=== PATIENT | female | born 1970 | race American Indian/Alaskan Native ===

== ENCOUNTER 2017-03-03 11:53 | Inpatient (IN) | payer MEDICAID ==
[2017-03-03 15:04] LABS: Urine Drugs of Abuse Note Disclamer
[2017-03-03] MEDS ORDERED: HALDOL IM ONE (15:04)
[2017-03-03] MEDS ORDERED: ROCEPHIN/NS 1 GM/50 ML 1 GM/50 ML BAG IV ONE (15:15)
[2017-03-03 15:17] LABS: Bacteria,Urine 1+ /HPF (Negative); Bilirubin,Urine NEG (Negative); Blood,Urine MOD (Negative); Ketones,Urine TR mg/dL (Negative); Leukocyte Esterase,Urine NEG (Negative); Nitrite,Urine POS (Negative)
[2017-03-03 15:23] LABS: Protein,Urine >500 mg/dL (Negative)
[2017-03-03 15:56] LABS: Basophils % (Auto) 0.3 % (0.0-1.8); Eosinophils % (Auto) 0.7 % (0.0-4.3); Hematocrit 33.2 % (30.3-42.9); Hemoglobin 10.3 gm/dl (10.1-14.3); Mean Corpuscular HGB Conc 31 % (30-34); Mean Corpuscular Hemoglobin 26 pg (28-32); Mean Corpuscular Volume 84 fl (79-97); Platelet Count 251 K/mm3 (140-440); Red Blood Count 3.96 M/mm3 (3.65-5.03); Red Cell Distribution Width 13.4 % (13.2-15.2)
--- NOTE | 2017-03-03 16:04 | Emergency Department Report ---
ED Altered Mental Status HPI - General Chief Complaint: Altered Mental Status Stated Complaint: ALT LOC Time Seen by Provider: 03/03/17 14:21 Source: family, EMS Mode of arrival: Stretcher Limitations: Altered Mental Status - History of Present Illness MD Complaint: altered mental status, confusion -: Gradual, days(s) (1) Severity: mild Consistency of Symptoms: getting worse Associated Symptoms: shortness of breath, other (currently on antibiotics cipro for UTI). denies: chest pain, cough, diaphoresis, fever/chills, headaches, loss of appetite, malaise, rash, seizure, syncope, weakness, difficulty walking , diarrhea, incontinence - Related Data Home Medications Medication Instructions Recorded Confirmed Last Taken Amlodipine Besylate [Amlodipine 10 mg PO DAILY 08/27/15 08/27/15 08/27/15 Besylate] AtorvaSTATin [Lipitor] 40 mg PO DAILY 08/27/15 08/27/15 08/27/15 Gabapentin [Gabapentin] 300 mg PO TID 08/27/15 08/27/15 08/27/15 HYDROcodone/ACETAMINOPHEN [[place] 1 tab PO TID PRN 08/27/15 08/27/15 08/27/15 7.5-325 mg TAB] Insulin Glulisine [Apidra] 20 units SC DAILY 08/27/15 08/27/15 08/27/15 07:00 Lisinopril [Lisinopril] 40 mg PO DAILY 08/27/15 08/27/15 08/27/15 Allergies Allergy/AdvReac Type Severity Reaction Status Date / Time ibuprofen AdvReac Rash Verified 08/27/15 08:38 ED Review of Systems ROS: Stated complaint: ALT LOC Other details as noted in HPI Other: GENERAL: No weight change, fatigue, weakness, fever, chills, or night sweats SKIN: No changes in skin or hair, no itching, no rashes, no jaundice HEAD: No trauma, headache, or visual changes EYES: No blurriness, tearing, itching, acute visual loss, conjunctival discoloration, or scleral icterus EARS: No hearing loss, tinnitus, vertigo, or earache NOSE: No rhinorrhea, stuffiness, sneezing, itching, or epistaxis MOUTH: No bleeding gums, hoarseness, sore throat, or swelling CARDIAC: No new murmur, chest pain, palpitations, dyspnea on exertion, orthopnea , PND, or edema RESPIRATORY: shortness of breath. No wheeze, cough, sputum production, hemoptysis, pneumonia, asthma, bronchitis, or emphysema GI: No change in appetite, nausea, vomiting, dysphagia, change in bowel frequency, diarrhea, constipation, bleeding, hematemesis, melena, hematochezia, or abdominal pain URINARY: No frequency, urgency, polyuria, dysuria, hematuria, or incontinence MUSCULOSKELETAL: No muscle weakness, joint stiffness, decrease in range of motion, redness, swelling NEUROLOGIC: Altered mental status worsening. 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) Hx Diabetes: Yes Hx GERD: Yes Hx HIV: No - Surgical History Past Surgical History?: Yes Hx Cholecystectomy: Yes - Social History Smoking Status: Current Some Day Smoker - Medications Home Medications: Home Medications Medication Instructions Recorded Confirmed Last Taken Type Amlodipine Besylate [Amlodipine 10 mg PO DAILY 08/27/15 08/27/15 08/27/15 History Besylate] AtorvaSTATin [Lipitor] 40 mg PO DAILY 08/27/15 08/27/15 08/27/15 History Gabapentin [Gabapentin] 300 mg PO TID 08/27/15 08/27/15 08/27/15 History HYDROcodone/ACETAMINOPHEN [[place] 1 tab PO TID PRN 08/27/15 08/27/15 08/27/15 History 7.5-325 mg TAB] Insulin Glulisine [Apidra] 20 units SC DAILY 08/27/15 08/27/15 08/27/15 07:00 History Lisinopril [Lisinopril] 40 mg PO DAILY 08/27/15 08/27/15 08/27/15 History ED Physical Exam - General Limitations: Altered Mental Status - Other Other exam information: GENERAL: Patient in no acute distress HEAD: Normocephalic, atraumatic EYES: PERRLA, EOM intact, no scleral icterus, visual mckeon and acuity wnl NOSE: No tenderness, discharge, sinus tenderness MOUTH: No erythema, bleeding, exudate HEART: tachycardia, no murmur, S1-S2 are auscultated, pulses are symmetric LUNGS: bilateral breath sounds. No wheezing, rales, rhonchi ABDOMEN: Normal bowel sounds, no tenderness, no rebound, no guarding, no masses , no CVA tenderness MUSCULOSKELETAL: Normal joint range of motion, no redness, no swelling, no tenderness NEUROLOGIC: Altered mental status, Patient mute, non-communicative, Alert, , Cranial nerves intact, normal sensation, normal strength SKIN: Skin is warm and dry, no wounds, no rashes ED Course Vital Signs 03/03/17 03/03/17 12:11 13:48 Temperature 97.9 F Pulse Rate 90 77 Respiratory 18 22 Rate Blood Pressure 170/90 171/93 [Right] O2 Sat by Pulse 99 97 Oximetry - Lab Data Result diagrams: 03/03/17 15:45 Lab Results 03/03/17 03/03/17 03/03/17 Range/Units 14:50 15:01 15:45 WBC 14.0 H (4.5-11.0) K/mm3 RBC 3.96 (3.65-5.03) M/mm3 Hgb 10.3 (10.1-14.3) gm/dl Hct 33.2 (30.3-42.9) % MCV 84 (79-97) fl MCH 26 L (28-32) pg MCHC 31 (30-34) % RDW 13.4 (13.2-15.2) % Plt Count 251 (140-440) K/mm3 Lymph % (Auto) 20.5 (13.4-35.0) % [place] % (Auto) 5.8 (0.0-7.3) % Eos % (Auto) 0.7 (0.0-4.3) % Baso % (Auto) 0.3 (0.0-1.8) % Lymph # 2.9 (1.2-5.4) K/mm3 [place] # 0.8 (0.0-0.8) K/mm3 Eos # 0.1 (0.0-0.4) K/mm3 Baso # 0.0 (0.0-0.1) K/mm3 Seg Neutrophils % 72.7 H (40.0-70.0) % Seg Neutrophils # 10.2 H (1.8-7.7) K/mm3 Urine Color [place] (Yellow) Urine Turbidity Clear (Clear) Urine pH 6.0 (5.0-7.0) Ur Specific [place] 1.015 (1.003-1.030) Urine Protein >500 (Negative) mg/dL Urine Glucose (UA) 50 (Negative) mg/dL Urine Ketones Tr (Negative) mg/dL Urine Blood Mod (Negative) Urine Nitrite Pos (Negative) Urine Bilirubin Neg (Negative) Urine Urobilinogen 2.0 (<2.0) mg/dL Ur Leukocyte Esterase Neg (Negative) Urine WBC (Auto) 1.0 (0.0-6.0) /HPF Urine RBC (Auto) 1.0 (0.0-6.0) /HPF U Epithel Cells (Auto) < 1.0 (0-13.0) /HPF Urine Bacteria (Auto) 1+ (Negative) /HPF Urine HCG, Qual Negative (Negative) Urine Opiates Screen Presumptive negative Urine Methadone Screen Presumptive negative Ur Barbiturates Screen Presumptive negative Ur Phencyclidine Scrn Presumptive negative Ur Amphetamines Screen Presumptive negative U Benzodiazepines Scrn Presumptive negative Urine Cocaine Screen Presumptive negative U Marijuana (THC) Screen Presumptive negative Drugs of Abuse Note Disclamer Critical care attestation.: If time is entered above; I have spent that time in minutes in the direct care of this critically ill patient, excluding procedure time. ED Disposition Condition: Stable Referrals: PRIMARY CARE, [Primary Care Provider] - 3-5 Days
[2017-03-03 16:45] LABS: Albumin 4.2 g/dL (3.9-5); Chloride 105.5 mmol/L (98-107); Potassium 4.6 mmol/L (3.6-5.0)
--- NOTE | 2017-03-03 16:48 | XRay Report ---
PORTABLE CHEST INDICATION: Hypertension. COMPARISON: 11/25/2010 FINDINGS: Portable, frontal chest radiograph demonstrates normal cardiomediastinal silhouette. Minimal left lower lung atelectasis and slightly elevated left hemidiaphragm. No pleural effusions or CHF. Patient's face/chin partly obscures the right lung apex. Probable cholecystectomy clips. Intact bones. CONCLUSION: Slight left lower lung atelectasis, as described. Thank you for the opportunity to participate in this patient's care.
--- NOTE | 2017-03-03 16:57 | Cat Scan Report ---
CT HEAD WITHOUT CONTRAST INDICATION: Altered mental status. COMPARISON: 01/01/2010. FINDINGS: Noncontrast head CT demonstrates symmetric ventricles and sulci, though prominent for the patient's age and larger since the prior exam. Mild periventricular hypodensities and few small lacunar infarcts as approximately 7 mm in the left basal ganglia as also right periventricular are new since. Exam in part limited due to patient's head tilt/position, though without definite acute infarct, hemorrhage, mass effect or midline shift. No abnormal extra axial fluid collections. Normal posterior fossa with preserved basilar cisterns. Approximately 7 mm lacunar infarct in the alfred on the right, axial image 14 as well. Clear imaged paranasal sinuses and mastoid air cells. Atherosclerotic ICA calcifications. Normal calvarium and scalp. Numerous radiopaque dental fillings. CONCLUSION: 1. Increased global atrophy since December 2009 and somewhat pronounced for the patient's age. Numerous lacunar infarcts have also developed in the interval, as described above. 2. Few other incidental findings, as above. Thank you for the opportunity to participate in this patient's care.
[2017-03-03 17:26] LABS: Albumin/Globulin Ratio 1.4 %; BUN/Creatinine Ratio 7.83; Bilirubin,Total 0.3 mg/dL (0.1-1.2); Calcium 9.3 mg/dL (8.4-10.2); Total Protein 7.2 g/dL (6.3-8.2)
[2017-03-03] MEDS ORDERED: NACL 0.45% 1,000 ML IV SCH (18:00)
[2017-03-03] MEDS ORDERED: PROVENTIL IH PRN (19:36)
[2017-03-03] MEDS ORDERED: NACL 0.9% 1000 ML IV ONE (19:36)
[2017-03-03] MEDS ORDERED: MILK OF MAGNESIA PO PRN ×2 (19:36→19:43)
[2017-03-03] MEDS ORDERED: VANCOMYCIN VIAL IV ONE (19:36)
[2017-03-03] MEDS ORDERED: SODIUM CHLORIDE FLUSH SYRINGE 10 ML IV PRN ×2 (19:36→19:43)
[2017-03-03] MEDS ORDERED: REGLAN PO PRN (19:43)
[2017-03-03] MEDS ORDERED: TYLENOL PO PRN (19:43)
[2017-03-03] MEDS ORDERED: PHENERGAN PR PRN (19:43)
[2017-03-03] MEDS ORDERED: ZOFRAN IV PRN (19:43)
[2017-03-03] MEDS ORDERED: DULCOLAX PR PRN (19:43)
--- NOTE | 2017-03-03 19:46 | History and Physical Report ---
History of Present Illness Chief complaint: confusion History of present illness: 46 YO Female with HTN, CVA complicated by dysarthria, DM, GERD, Nicotine Dependence presents to ED for evaluation. Pt unable to provide history. Pt history taken from ED staff and medical record. Pt family members not available for questioning. per ED staff, Patient has become progressively more confused over the past week with worsening symptoms over the past 1 day. Pt was seen and evaluated at an outside hospital and given antibiotics and released back to home. No reports of fever, chills, CP, palpitations, NVD, syncope, trauma, recent ill contacts. Pt seen and evaluated in ED. Pt is confused and lethargic but is able to protect her airway. Past History Past Medical History: diabetes, GERD, hypertension, stroke, other Past Surgical History: No surgical history, Other (reviewed) Social history: single, lives with family, smoking Family history: diabetes, hypertension Medications and Allergies Allergies Allergy/AdvReac Type Severity Reaction Status Date / Time ibuprofen AdvReac Rash Verified 08/27/15 08:38 Home Medications Medication Instructions Recorded Confirmed Last Taken Type Amlodipine Besylate [Amlodipine 10 mg PO DAILY 08/27/15 08/27/15 08/27/15 History Besylate] AtorvaSTATin [Lipitor] 40 mg PO DAILY 08/27/15 08/27/15 08/27/15 History Gabapentin [Gabapentin] 300 mg PO TID 08/27/15 08/27/15 08/27/15 History HYDROcodone/ACETAMINOPHEN [[place] 1 tab PO TID PRN 08/27/15 08/27/15 08/27/15 History 7.5-325 mg TAB] Insulin Glulisine [Apidra] 20 units SC DAILY 08/27/15 08/27/15 08/27/15 07:00 History Lisinopril [Lisinopril] 40 mg PO DAILY 08/27/15 08/27/15 08/27/15 History Active Meds: Active Medications Acetaminophen (Tylenol) 650 mg PO Q4H PRN PRN Reason: Pain MILD(1-3)/Fever >100.5/LEE Acetaminophen (Tylenol) 650 mg PO Q4H PRN PRN Reason: Pain, Mild (1-3) Albuterol (Proventil) 2.5 mg IH Q4HRT PRN PRN Reason: Shortness Of Breath Bisacodyl (Dulcolax) 10 mg UT QDAY PRN PRN Reason: Constipation unrelieved by MOM Bisacodyl (Dulcolax) 10 mg UT QDAY PRN PRN Reason: Constipation Sodium Chloride (Nacl 0.45%) 1,000 mls @ 1,000 mls/hr IV DIRECT LORENE Piperacillin Sod/Tazobactam Sod (Zosyn/Ns 4.5gm/100ml) 4.5 gm in 100 mls @ 200 mls/hr IV Q8HR LORENE PRN Reason: Protocol Lorazepam (Ativan) 1 mg IV Q4H PRN PRN Reason: Anxiety Magnesium Hydroxide (Milk Of Magnesia) 30 ml PO Q4H PRN PRN Reason: Constipation Magnesium Hydroxide (Milk Of Magnesia) 30 ml PO Q4H PRN PRN Reason: Constipation Metoclopramide HCl (Reglan) 10 mg PO Q6H PRN PRN Reason: Nausea And Vomiting Ondansetron HCl (Zofran) 4 mg IV Q8H PRN PRN Reason: N/V unrelieved by Reglan Ondansetron HCl (Zofran) 4 mg IV Q8H PRN PRN Reason: N/V unrelieved by Reglan Promethazine HCl (Phenergan) 25 mg UT Q6H PRN PRN Reason: Nausea And Vomiting Simvastatin (Zocor) 20 mg PO QHS LORENE Sodium Chloride (Nacl 0.9% 1000 Ml) 2,180 ml 30 ml/kg (2180 ml) IV ONCE ONE Stop: 03/03/17 19:37 Sodium Chloride (Sodium Chloride Flush Syringe 10 Ml) 10 ml IV PRN PRN PRN Reason: LINE FLUSH Sodium Chloride (Sodium Chloride Flush Syringe 10 Ml) 10 ml INJ PRN PRN PRN Reason: LINE FLUSH Vancomycin HCl (Vancomycin Pharmacy To Dose) 1 each IV PKCONSULT LORENE PRN Reason: Protocol Vancomycin HCl (Vancomycin Vial) 1,500 mg 20 mg/kg (1500 mg) IV ONCE ONE PRN Reason: Protocol Stop: 03/03/17 19:37 Review of Systems ROS unobtainable: due to mental status Exam - Constitutional Vitals: Temp Pulse Resp BP Pulse Ox 99.4 F 122 H 20 168/106 99 03/03/17 16:45 03/03/17 17:23 03/03/17 17:23 03/03/17 19:05 03/03/17 17:23 General appearance: Present: mild distress, disheveled - EENT Eyes: Present: PERRL ENT: hearing intact, clear oral mucosa - Neck Neck: Present: supple, normal ROM - Respiratory Respiratory effort: normal Respiratory: bilateral: CTA - Cardiovascular Heart Sounds: Present: S1 & S2. Absent: rub, click - Extremities Extremities: pulses symmetrical, No edema Peripheral Pulses: within normal limits - Abdominal General gastrointestinal: Present: soft, non-tender, non-distended, normal bowel sounds Female genitourinary: Present: normal - Integumentary Integumentary: Present: clear, dry, clammy, decreased turgor - Musculoskeletal Musculoskeletal: right sided weakness, generalized weakness - Psychiatric Psychiatric: no appropriate mood/affect, no intact judgment & insight, no memory intact - Neurologic Neurologic: moves all extremities, no gait normal Results - Labs CBC & Chem 7: 03/04/17 05:43 03/04/17 05:43 Labs: Abnormal lab results 03/03/17 03/03/17 03/03/17 Range/Units 15:00 15:45 15:45 WBC 14.0 H (4.5-11.0) K/mm3 MCH 26 L (28-32) pg Seg Neutrophils % 72.7 H (40.0-70.0) % Seg Neutrophils # 10.2 H (1.8-7.7) K/mm3 Carbon Dioxide 18 L (22-30) mmol/L BUN 29 H (7-17) mg/dL Creatinine 3.7 H (0.7-1.2) mg/dL Lactic Acid 0.50 L (0.7-2.0) mmol/L Troponin T (0.00-0.029) ng/mL Salicylates (2.8-20.0) mg/dL 03/03/17 03/03/17 Range/Units 15:45 16:15 WBC (4.5-11.0) K/mm3 MCH (28-32) pg Seg Neutrophils % (40.0-70.0) % Seg Neutrophils # (1.8-7.7) K/mm3 Carbon Dioxide (22-30) mmol/L BUN (7-17) mg/dL Creatinine (0.7-1.2) mg/dL Lactic Acid (0.7-2.0) mmol/L Troponin T 0.050 H (0.00-0.029) ng/mL Salicylates < 0.3 L (2.8-20.0) mg/dL Assessment and Plan - Patient Problems (1) Sepsis Current Visit: Yes Status: Acute Qualifiers: Sepsis type: S Plan to address problem: IV abx, ivf, serial lactic acid, monitor uop q shift, blood cultures (2) Encephalopathy Current Visit: Yes Status: Acute Plan to address problem: toxic encephalopathy: treat sepsis, CT head, neuro checks, rapid hiv (3) ARF (acute renal failure) Current Visit: Yes Status: Acute Qualifiers: Acute renal failure type: A Plan to address problem: IVF resuscitation therapy, supportive care, monitor uop q shift (4) Accelerated hypertension Current Visit: Yes Status: Acute Plan to address problem: monitor bp q shif, resume home medication (5) CVA (cerebral vascular accident) Current Visit: Yes Status: Suspected Qualifiers: CVA mechanism: C Precerebral and cerebral artery: P Laterality of affected vessel: L Plan to address problem: stroke protocol: CT head, mri, mra brain, carotid doppler, echo, supportive care , neuro checks (6) DVT prophylaxis Current Visit: Yes Status: Acute
[2017-03-03 19:58] LABS: Basophils % (Auto) 0.3 % (0.0-1.8); Eosinophils % (Auto) 0.7 % (0.0-4.3); Hemoglobin 9.5 gm/dl (10.1-14.3); Mean Corpuscular HGB Conc 28 % (30-34); Mean Corpuscular Hemoglobin 26 pg (28-32); Mean Corpuscular Volume 94 fl (79-97); Platelet Count 213 K/mm3 (140-440); Red Blood Count 3.62 M/mm3 (3.65-5.03); Red Cell Distribution Width 14.7 % (13.2-15.2); White Blood Count 11.9 K/mm3 (4.5-11.0)
[2017-03-03] MEDS ORDERED: VANCOMYCIN PHARMACY TO DOSE IV SCH (20:00)
[2017-03-03] MEDS ORDERED: VANCOMYCIN 1,500 MG in NACL 0.9% 500 ML 500 ML IV ONE (20:00)
[2017-03-03 20:16] LABS: BUN/Creatinine Ratio 8.57; Calcium 8.6 mg/dL (8.4-10.2); Chloride 104.1 mmol/L (98-107)
[2017-03-03 20:26] LABS: Potassium 5.6 mmol/L (3.6-5.0)
[2017-03-03 20:48] LABS: HIV-1 Antigen p24 Non React (Non React); HIVR-1/2 Ab Non React (Non React)
[2017-03-03] MEDS ORDERED: NACL 0.9% 1000 ML 1,000 ML ONE (21:13)
[2017-03-03] MEDS: ZOFRAN IV PRN (21:42)
[2017-03-03] MEDS: ATIVAN IV PRN (21:42)
[2017-03-03] MEDS ORDERED: ZOFRAN ONE (21:46)
[2017-03-03] MEDS ORDERED: ATIVAN ONE (21:46)
[2017-03-03] MEDS ORDERED: ZOSYN/NS 4.5GM/100ML 4.5 GM/100 ML VIAL IV SCH (22:00)
[2017-03-03] MEDS: ZOSYN/NS 2.25 GM/50ML 2.25 GM/50 ML BAG IV SCH (22:43)
[2017-03-03] MEDS: ZOCOR PO SCH (22:43)
[2017-03-04 00:02] LABS: ISTAT Base Excess -5; ISTAT HCO3 20.3; ISTAT PCO2 37.3 (35-45); ISTAT PH 7.345 (7.35-7.45); ISTAT PO2 72 (80-105)
[2017-03-04 00:03] LABS: ISTAT DEVICE 0; ISTAT SO2 93; ISTAT TCO2 21
[2017-03-04] MEDS: ZOSYN/NS 2.25 GM/50ML 2.25 GM/50 ML BAG IV SCH ×4 (06:34→21:51)
[2017-03-04 06:43] LABS: Basophils % (Auto) 0.9 % (0.0-1.8); Eosinophils % (Auto) 1.3 % (0.0-4.3); Hematocrit 30.3 % (30.3-42.9); Hemoglobin 9.8 gm/dl (10.1-14.3); Mean Corpuscular HGB Conc 32 % (30-34); Mean Corpuscular Hemoglobin 27 pg (28-32); Mean Corpuscular Volume 85 fl (79-97); Platelet Count 202 K/mm3 (140-440); Red Blood Count 3.59 M/mm3 (3.65-5.03); Red Cell Distribution Width 13.6 % (13.2-15.2); White Blood Count 12.9 K/mm3 (4.5-11.0)
[2017-03-04 07:17] LABS: Albumin 3.3 g/dL (3.9-5); Albumin/Globulin Ratio 0.9 %; BUN/Creatinine Ratio 9.09; Bilirubin,Total 0.5 mg/dL (0.1-1.2); Calcium 8.8 mg/dL (8.4-10.2); Chloride 105.2 mmol/L (98-107); Total Protein 6.8 g/dL (6.3-8.2)
[2017-03-04] MEDS ORDERED: DULCOLAX PR PRN (10:00)
--- NOTE | 2017-03-04 10:00 | Admit Criteria Form ---
Admission Criteria Documentation: SEPSIS and OTHER FEBRILE ILLNESS, W/O FOCAL INFECTION Clinical Indications for Admission to Inpatient Care ( Place 'X' for any and all applicable criteria): Admission to inpatient status for two midnights or more is indicated for ANY ONE of the following (1)(2)(3): [ ] I. Bacteremia [ ]II. Suspected or identified specific infection requiring hospitalization (eg, meningitis, endocarditis) [ ]III. Hemodynamic instability [ ]IV. Temperature > 104.9 0F (40.5 0C) (oral) [ ]V. Core (rectal) temperature < 95 0F (35 0C) (eg, thought to be due to infection) [X ]. Altered mental status that is severe or persistent [ ]VII. Failure or unavailability of outpatient antimicrobial treatment [ ]VIII. Hypoxemia [ ]IX. Seizures [ ]X. New coagulopathy (eg, reduced platelet count consistent with disseminated intravascular coagulation) [ ]XI. Inpatient admission required [B] rather than observation care because of 1 or more of the following 1) Tachypnea not responsive to outpatient or observation treatment 2) Metabolic disorder (eg, hypoglycemia, hyperglycemia, metabolic acidosis ) that persists despite outpatient and observation care treatment 3) Evidence of end-organ dysfunction (eg, rising creatinine, myocardial ischemia, rising liver function tests) that is severe or persists despite observation care treatment 4) Temperature > 103.1 0F (39.5 0C) (oral) that is not responsive to observation care treatment 5) Dehydration that is severe or persistent 6) Parenteral antimicrobial regimen that must be implemented on inpatient basis (eg, infusion or monitoring needs beyond capabilities of outpatient parenteral therapy) 7) Strict or protective (eg, laminar flow) isolation 8) Other condition, treatment or monitoring requiring inpatient admission Extended stay beyond goal length of stay may be needed for(1)(3) [ ]a) Persistent Hypotension [ ]b) Positive blood cultures [ ]c) Lack of improvement on antimicrobial treatment (eg, continued fever) [ ]d) Active comorbid illness (eg, heart failure, renal failure) [ ]e) High-risk febrile neutropenia [ ]f) Insufficient oral intake [ ]g) insufficient oral intake The original [employer] content created by [employer] has been revised. The portions of the content which have been revised are identified through the use of italic text or in bold, and [employer] has neither reviewed nor approved the modified material. All other unmodified content is copyright [facility], [place]. Please see references footnoted in the original [facility] edition 2017 Admission Criteria Met: Yes
[2017-03-04] MEDS ORDERED: NACL 0.9% 250ML 250 ML ONE (10:56)
--- NOTE | 2017-03-04 11:21 | Progress Note ---
Assessment and Plan Assessment and plan: 46 YO Female with HTN, CVA complicated by dysarthria, DM, GERD, Nicotine Dependence with progressive confusion, over 1 week. Pt was seen and evaluated at an outside hospital and given antibiotics and released back to home. Continue sepsis workup * UA negative, blood cultures negative, chest x-ray shows left lung atelectasis. We'll repeat chest x-ray today * on empiric abx Metabolic Encephalopathy * Etiology unclear at this time, CT head does show global atrophy, but no acute findings, obtain HIV screening, neurology consult * Continue stroke workup as outlined below, check Ammonia level CVA (cerebral vascular accident)? * CT head, mri, mra brain, carotid doppler, echo, supportive care, neuro checks ARF (acute renal failure) * IVF resuscitation therapy, hold TEODORO inhibitor * Renal US and nephrology consult Hyperkalemia * resolved, continue to hold TEODORO Hypertensive urgency * Optimize blood pressure medications Moderate Malnutrition * nutrition consult DVT prophylaxis * lovenox History Interval history: Patient remains confused, nonverbal. Hospitalist Physical - Physical exam Narrative exam: General.: Appears well, no distress, nontoxic, unkempt HEENT: Moist mucous membranes, extraocular muscles intact, no lymphadenopathy Neck: supple Cardiac: S1-S2 heard Lungs: clear to auscultation bilaterally Abdomen: soft , nontender, nondistended, bowel sounds positive Extremities: no edema clubbing or cyanosis Skin: no rash or lesions Neurologic: Confused, nonverbal, not obeying commands, moves extremities. Psych: Limited exam as patient is nonverbal, - Constitutional Vitals: Temp Pulse Resp BP Pulse Ox 99.5 F 115 H 20 174/91 99 03/04/17 09:00 03/04/17 09:00 03/04/17 04:45 03/04/17 09:00 03/04/17 04:45 General appearance: Present: mild distress, disheveled Results - Labs CBC & Chem 7: 03/04/17 05:43 03/04/17 05:43 Labs: Laboratory Last Values WBC 12.9 K/mm3 (4.5-11.0) H 03/04/17 05:43 RBC 3.59 M/mm3 (3.65-5.03) L 03/04/17 05:43 Hgb 9.8 gm/dl (10.1-14.3) L 03/04/17 05:43 Hct 30.3 % (30.3-42.9) 03/04/17 05:43 MCV 85 fl (79-97) 03/04/17 05:43 MCH 27 pg (28-32) L 03/04/17 05:43 MCHC 32 % (30-34) 03/04/17 05:43 RDW 13.6 % (13.2-15.2) 03/04/17 05:43 Plt Count 202 K/mm3 (140-440) 03/04/17 05:43 Lymph % (Auto) 13.4 % (13.4-35.0) 03/04/17 05:43 [place] % (Auto) 4.3 % (0.0-7.3) 03/04/17 05:43 Eos % (Auto) 1.3 % (0.0-4.3) 03/04/17 05:43 Baso % (Auto) 0.9 % (0.0-1.8) 03/04/17 05:43 Lymph # 1.7 K/mm3 (1.2-5.4) 03/04/17 05:43 [place] # 0.6 K/mm3 (0.0-0.8) 03/04/17 05:43 Eos # 0.2 K/mm3 (0.0-0.4) 03/04/17 05:43 Baso # 0.1 K/mm3 (0.0-0.1) 03/04/17 05:43 Seg Neutrophils % 80.1 % (40.0-70.0) H 03/04/17 05:43 Seg Neutrophils # 10.3 K/mm3 (1.8-7.7) H 03/04/17 05:43 D-Dimer 211.87 ng/mlDDU (0-234) 03/03/17 17:43 POC ABG pH 7.345 (7.35-7.45) L 03/04/17 00:00 POC ABG pCO2 37.3 (35-45) 03/04/17 00:00 POC ABG pO2 72 (80-105) L 03/04/17 00:00 POC ABG HCO3 20.3 03/04/17 00:00 POC ABG Total CO2 21 03/04/17 00:00 POC ABG O2 Sat 93 03/04/17 00:00 POC ABG Base Excess -5 03/04/17 00:00 FiO2 21 % 03/04/17 00:00 Sodium 140 mmol/L (137-145) 03/04/17 05:43 Potassium 5.0 mmol/L (3.6-5.0) 03/04/17 05:43 Chloride 105.2 mmol/L (98-107) 03/04/17 05:43 Carbon Dioxide 16 mmol/L (22-30) L 03/04/17 05:43 Anion Gap 24 mmol/L 03/04/17 05:43 BUN 30 mg/dL (7-17) H 03/04/17 05:43 Creatinine 3.3 mg/dL (0.7-1.2) H 03/04/17 05:43 Estimated GFR 18 ml/min 03/04/17 05:43 BUN/Creatinine Ratio 9.09 % 03/04/17 05:43 Glucose 48 mg/dL (65-100) L 03/04/17 05:43 Lactic Acid 0.50 mmol/L (0.7-2.0) L 03/03/17 23:25 Calcium 8.8 mg/dL (8.4-10.2) 03/04/17 05:43 Total Bilirubin 0.50 mg/dL (0.1-1.2) 03/04/17 05:43 AST 32 units/L (5-40) 03/04/17 05:43 ALT 16 units/L (7-56) 03/04/17 05:43 Alkaline Phosphatase 99 units/L (35-129) 03/04/17 05:43 Ammonia 25.0 umol/L (25-60) 03/03/17 15:45 Troponin T 0.038 ng/mL (0.00-0.029) H D 03/03/17 23:25 Total Protein 6.8 g/dL (6.3-8.2) 03/04/17 05:43 Albumin 3.3 g/dL (3.9-5) L 03/04/17 05:43 Albumin/Globulin Ratio 0.9 % 03/04/17 05:43 Triglycerides 121 mg/dL (2-149) 03/03/17 16:15 Cholesterol 166 mg/dL (50-199) 03/03/17 16:15 LDL Cholesterol Direct 90 mg/dL (50-130) 03/03/17 16:15 HDL Cholesterol 52 mg/dL (40-59) 03/03/17 16:15 Cholesterol/HDL Ratio 3.19 % 03/03/17 16:15 Lipase 30 units/L (13-60) 03/03/17 15:45 Urine Color [place] (Yellow) 03/03/17 15:01 Urine Turbidity Clear (Clear) 03/03/17 15:01 Urine pH 6.0 (5.0-7.0) 03/03/17 15:01 Ur Specific [place] 1.015 (1.003-1.030) 03/03/17 15:01 Urine Protein >500 mg/dL (Negative) 03/03/17 15:01 Urine Glucose (UA) 50 mg/dL (Negative) 03/03/17 15:01 Urine Ketones Tr mg/dL (Negative) 03/03/17 15:01 Urine Blood Mod (Negative) 03/03/17 15:01 Urine Nitrite Pos (Negative) 03/03/17 15:01 Urine Bilirubin Neg (Negative) 03/03/17 15:01 Urine Urobilinogen 2.0 mg/dL (<2.0) 03/03/17 15:01 Ur Leukocyte Esterase Neg (Negative) 03/03/17 15:01 Urine WBC (Auto) 1.0 /HPF (0.0-6.0) 03/03/17 15:01 Urine RBC (Auto) 1.0 /HPF (0.0-6.0) 03/03/17 15:01 U Epithel Cells (Auto) < 1.0 /HPF (0-13.0) 03/03/17 15:01 Urine Bacteria (Auto) 1+ /HPF (Negative) 03/03/17 15:01 Urine HCG, Qual Negative (Negative) 03/03/17 15:01 Salicylates < 0.3 mg/dL (2.8-20.0) L 03/03/17 15:45 Urine Opiates Screen Presumptive negative 03/03/17 14:50 Urine Methadone Screen Presumptive negative 03/03/17 14:50 Acetaminophen < 15.0 ug/mL (10.0-30.0) 03/03/17 15:45 Ur Barbiturates Screen Presumptive negative 03/03/17 14:50 Ur Phencyclidine Scrn Presumptive negative 03/03/17 14:50 Ur Amphetamines Screen Presumptive negative 03/03/17 14:50 U Benzodiazepines Scrn Presumptive negative 03/03/17 14:50 Urine Cocaine Screen Presumptive negative 03/03/17 14:50 U Marijuana (THC) Screen Presumptive negative 03/03/17 14:50 Drugs of Abuse Note Disclamer 03/03/17 14:50 Plasma/Serum Alcohol < 0.01 gm% (0-0.07) 03/03/17 15:45 HIV 1&2 Antibody Rapid Non react (Non React) 03/03/17 20:07 HIV P24 Antigen Non react (Non React) 03/03/17 20:07 Blood Type O POSITIVE 03/03/17 20:14 Antibody Screen Negative 03/03/17 20:14 - Imaging and Cardiology CT Scan - head: image reviewed (no acute changes)
--- NOTE | 2017-03-04 13:23 | Consultation ---
History of Present Illness - Reason for Consult Consult date: 03/04/17 mental status changes - History of Present Illness patient has alot of small acunar infarcts on the CT this may exopalin the mental changes spoke with the nurse at bedside ppatient is alert but non verbal with no obseereved seizures at this point Thanks Past History Past Medical History: diabetes, GERD, hypertension, stroke, other Past Surgical History: No surgical history, Other (reviewed) Social history: single, lives with family, smoking Family history: diabetes, hypertension Medications and Allergies Allergies Allergy/AdvReac Type Severity Reaction Status Date / Time ibuprofen AdvReac Rash Verified 08/27/15 08:38 Home Medications Medication Instructions Recorded Confirmed Last Taken Type Amlodipine Besylate [Amlodipine 10 mg PO DAILY 08/27/15 08/27/15 08/27/15 History Besylate] AtorvaSTATin [Lipitor] 40 mg PO DAILY 08/27/15 08/27/15 08/27/15 History Gabapentin [Gabapentin] 300 mg PO TID 08/27/15 08/27/15 08/27/15 History HYDROcodone/ACETAMINOPHEN [[place] 1 tab PO TID PRN 08/27/15 08/27/15 08/27/15 History 7.5-325 mg TAB] Insulin Glulisine [Apidra] 20 units SC DAILY 08/27/15 08/27/15 08/27/15 07:00 History Lisinopril [Lisinopril] 40 mg PO DAILY 08/27/15 08/27/15 08/27/15 History Active Meds: Active Medications Acetaminophen (Tylenol) 650 mg PO Q4H PRN PRN Reason: Pain MILD(1-3)/Fever >100.5/LEE Albuterol (Proventil) 2.5 mg IH Q4HRT PRN PRN Reason: Shortness Of Breath Bisacodyl (Dulcolax) 10 mg [place] QDAY PRN PRN Reason: Constipation unrelieved by MOM Hydralazine HCl (Apresoline) 10 mg IV Q4HR PRN PRN Reason: BP >160/100 Sodium Chloride (Nacl 0.45%) 1,000 mls @ 1,000 mls/hr IV DIRECT [facility] Piperacillin Sod/Tazobactam Sod (Zosyn/Ns 2.25 Gm/50ml) 2.25 gm in 50 mls @ 100 mls/hr IV Q6H [facility] Last Admin: 03/04/17 11:08 Dose: 100 mls/hr Lorazepam (Ativan) 1 mg IV Q4H PRN PRN Reason: Anxiety Last Admin: 03/03/17 21:42 Dose: 1 mg Magnesium Hydroxide (Milk Of Magnesia) 30 ml PO Q4H PRN PRN Reason: Constipation Metoclopramide HCl (Reglan) 10 mg PO Q6H PRN PRN Reason: Nausea And Vomiting Ondansetron HCl (Zofran) 4 mg IV Q8H PRN PRN Reason: N/V unrelieved by Reglan Last Admin: 03/03/17 21:42 Dose: 4 mg Promethazine HCl (Phenergan) 25 mg DE Q6H PRN PRN Reason: Nausea And Vomiting Simvastatin (Zocor) 20 mg PO QHS [facility] Last Admin: 03/03/17 22:43 Dose: 20 mg Sodium Chloride (Sodium Chloride Flush Syringe 10 Ml) 10 ml IV PRN PRN PRN Reason: LINE FLUSH Sodium Chloride (Sodium Chloride Flush Syringe 10 Ml) 10 ml IV PRN PRN PRN Reason: LINE FLUSH Vancomycin HCl (Vancomycin Pharmacy To Dose) 1 each IV PKCONSULT [facility] PRN Reason: Protocol Exam - Constitutional Vitals: Temp Pulse Resp BP Pulse Ox 99.5 F 115 H 20 174/91 100 03/04/17 09:00 03/04/17 09:00 03/04/17 04:45 03/04/17 09:00 03/04/17 10:00 Results - Labs CBC & Chem 7: 03/04/17 05:43 03/04/17 05:43 Labs: Abnormal lab results 03/03/17 03/03/17 03/03/17 Range/Units 19:50 19:50 23:25 WBC 11.9 H (4.5-11.0) K/mm3 RBC 3.62 L (3.65-5.03) M/mm3 Hgb 9.5 L (10.1-14.3) gm/dl MCH 26 L (28-32) pg MCHC 28 L (30-34) % Seg Neutrophils % 75.8 H (40.0-70.0) % Seg Neutrophils # 9.0 H (1.8-7.7) K/mm3 POC ABG pH (7.35-7.45) POC ABG pO2 (80-105) Potassium 5.6 H D (3.6-5.0) mmol/L Carbon Dioxide 17 L (22-30) mmol/L BUN 30 H (7-17) mg/dL Creatinine 3.5 H (0.7-1.2) mg/dL Glucose (65-100) mg/dL Lactic Acid 0.50 L (0.7-2.0) mmol/L Troponin T (0.00-0.029) ng/mL Albumin (3.9-5) g/dL 03/03/17 03/04/17 03/04/17 Range/Units 23:25 00:00 05:43 WBC 12.9 H (4.5-11.0) K/mm3 RBC 3.59 L (3.65-5.03) M/mm3 Hgb 9.8 L (10.1-14.3) gm/dl MCH 27 L (28-32) pg MCHC (30-34) % Seg Neutrophils % 80.1 H (40.0-70.0) % Seg Neutrophils # 10.3 H (1.8-7.7) K/mm3 POC ABG pH 7.345 L (7.35-7.45) POC ABG pO2 72 L (80-105) Potassium (3.6-5.0) mmol/L Carbon Dioxide (22-30) mmol/L BUN (7-17) mg/dL Creatinine (0.7-1.2) mg/dL Glucose (65-100) mg/dL Lactic Acid (0.7-2.0) mmol/L Troponin T 0.038 H D (0.00-0.029) ng/mL Albumin (3.9-5) g/dL 03/04/17 Range/Units 05:43 WBC (4.5-11.0) K/mm3 RBC (3.65-5.03) M/mm3 Hgb (10.1-14.3) gm/dl MCH (28-32) pg MCHC (30-34) % Seg Neutrophils % (40.0-70.0) % Seg Neutrophils # (1.8-7.7) K/mm3 POC ABG pH (7.35-7.45) POC ABG pO2 (80-105) Potassium (3.6-5.0) mmol/L Carbon Dioxide 16 L (22-30) mmol/L BUN 30 H (7-17) mg/dL Creatinine 3.3 H (0.7-1.2) mg/dL Glucose 48 L (65-100) mg/dL Lactic Acid (0.7-2.0) mmol/L Troponin T (0.00-0.029) ng/mL Albumin 3.3 L (3.9-5) g/dL
--- NOTE | 2017-03-04 13:40 | Ultrasound Report ---
Renal ultrasound: Acute renal failure. Both kidneys have a length of 10.4 cm. There are no renal masses and no hydronephrosis identified. Both kidneys however are mildly echogenic. Imaging of the bladder is limited due to decompression from a Blair catheter. Impressions: Echogenic kidneys consistent with medical renal.
--- NOTE | 2017-03-04 14:50 | XRay Report ---
AP chest: Cough. Comparison is made to prior study of 03/03. The focal linear density at the left base seen at that time is no longer present and the lungs are currently clear. The mediastinum and hilar regions are unremarkable. Impression: Resolved left atelectasis.
[2017-03-04 16:30] LABS: HIV-1 Antigen p24 Non React (Non React); HIVR-1/2 Ab Non React (Non React)
[2017-03-04] MEDS: ZOCOR PO SCH (21:52)
[2017-03-04] MEDS: ATIVAN IV PRN (23:52)
[2017-03-05] MEDS: ZOSYN/NS 2.25 GM/50ML 2.25 GM/50 ML BAG IV SCH ×4 (04:20→22:18)
[2017-03-05] MEDS: APRESOLINE IV PRN ×2 (04:20→17:42)
[2017-03-05] MEDS ORDERED: D10W 1,000 ML IV SCH (06:00)
--- NOTE | 2017-03-05 09:44 | Consultation ---
History of Present Illness - History of Present Illness thank you for the consultation,dictated report to follow Patient is a very poor historian and unable to provide much of history no family member in the room Chart was reviewed My assessment and plan are as follows Assessment and plan Renal failure severe at this time there is no acute emergent indication for renal replacement therapy patient was also noted to be hypoxic PO2 was around 70 to May have had some degree of acute tubular necrosis High possibility that she does have underlying chronic kidney disease which may be worsening over time She needs full workup for renal failure we will order labs and renal ultrasonogram Urine drug screen, HIV test was negative Strict intake and output monitoring avoidance of nephrotoxic medications Follow-up lab studies gentle hydration Metabolic acidosis to correct Anemia with renal failure to monitor and follow Mild leukocytosis History of hypertension, CVA, diabetes, gastric seizure disorder, nicotine dependence Overall prognosis appears to be poor at this time Will continue supportive care does not need any form of valerie inhibitor angiotensin receptor estrella or nonsteroidal drugs Past History Past Medical History: diabetes, GERD, hypertension, stroke, other Past Surgical History: No surgical history, Other (reviewed) Social history: single, lives with family, smoking Family history: diabetes, hypertension Medications and Allergies Allergies Allergy/AdvReac Type Severity Reaction Status Date / Time ibuprofen AdvReac Rash Verified 08/27/15 08:38 Home Medications Medication Instructions Recorded Confirmed Last Taken Type Amlodipine Besylate [Amlodipine 10 mg PO DAILY 08/27/15 03/04/17 1 Day Ago History Besylate] AtorvaSTATin [Lipitor] 40 mg PO DAILY 08/27/15 03/04/17 1 Day Ago History Gabapentin [Gabapentin] 300 mg PO TID 08/27/15 03/04/17 1 Day Ago History HYDROcodone/ACETAMINOPHEN [[place] 1 tab PO TID PRN 08/27/15 03/04/17 3 Days Ago History 7.5-325 mg TAB] Insulin Glulisine [Apidra] 20 units SC DAILY 08/27/15 03/04/17 1 Day Ago History Lisinopril [Lisinopril] 40 mg PO DAILY 08/27/15 03/04/17 1 Day Ago History Active Meds: Active Medications Acetaminophen (Tylenol) 650 mg PO Q4H PRN PRN Reason: Pain MILD(1-3)/Fever >100.5/LEE Albuterol (Proventil) 2.5 mg IH Q4HRT PRN PRN Reason: Shortness Of Breath Bisacodyl (Dulcolax) 10 mg [place] QDAY PRN PRN Reason: Constipation unrelieved by MOM Hydralazine HCl (Apresoline) 10 mg IV Q4HR PRN PRN Reason: BP >160/100 Last Admin: 03/05/17 04:20 Dose: 10 mg Piperacillin Sod/Tazobactam Sod (Zosyn/Ns 2.25 Gm/50ml) 2.25 gm in 50 mls @ 100 mls/hr IV Q6H [facility] Last Admin: 03/05/17 04:20 Dose: 100 mls/hr Dextrose (D10w) 1,000 mls @ 60 mls/hr IV DIRECT [facility] Last Admin: 03/05/17 06:08 Dose: 60 mls/hr Lorazepam (Ativan) 1 mg IV Q4H PRN PRN Reason: Anxiety Last Admin: 03/04/17 23:52 Dose: 1 mg Magnesium Hydroxide (Milk Of Magnesia) 30 ml PO Q4H PRN PRN Reason: Constipation Metoclopramide HCl (Reglan) 10 mg PO Q6H PRN PRN Reason: Nausea And Vomiting Ondansetron HCl (Zofran) 4 mg IV Q8H PRN PRN Reason: N/V unrelieved by Reglan Last Admin: 03/03/17 21:42 Dose: 4 mg Promethazine HCl (Phenergan) 25 mg [place] Q6H PRN PRN Reason: Nausea And Vomiting Simvastatin (Zocor) 20 mg PO QHS [facility] Last Admin: 03/04/17 21:52 Dose: Not Given Sodium Chloride (Sodium Chloride Flush Syringe 10 Ml) 10 ml IV PRN PRN PRN Reason: LINE FLUSH Vancomycin HCl (Vancomycin Pharmacy To Dose) 1 each IV PKCONSULT [facility] PRN Reason: Protocol Exam - Vital Signs Vital signs: Vital Signs Temp Pulse Resp BP Pulse Ox 97.9 F 90 18 170/90 99 03/03/17 12:11 03/03/17 12:11 03/03/17 12:11 03/03/17 12:11 03/03/17 12:11 Results - Lab Results 03/04/17 05:43 03/04/17 05:43 Most recent lab results Calcium 8.8 mg/dL (8.4-10.2) 03/04/17 05:43
--- NOTE | 2017-03-05 11:14 | Progress Note ---
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 Her Daughter says she has stage IV chronic kidney disease. As she had premature CVA due to uncontrolled hypertension and diabetes, high daughter brings her in today With progressive confusion, over 1 week. Pt was seen and evaluated at [facility] and given antibiotics for a UTI and released back to home. But her daughter states that she got worse prompting her to call the ambulance which then brought her to [facility] Continue sepsis workup * UA negative, blood cultures negative, chest x-ray was repeated 2, no infiltrates * After MRI of brain will consider discontinuing antibiotics Metabolic Encephalopathy * Etiology unclear at this time, clinically improving, CT head does show global atrophy, but no acute findings, HIV screening negative, neurology consult appreciated * Continue stroke workup as outlined below, MRI pending, Ammonia level was normal * obtain EEG to r/o abscence seizure * consider LP on Tuesday if she does not improve CVA (cerebral vascular accident)? * CT head, mri, mra brain, carotid doppler did not show any significant stenosis, follow-up echo, supportive care, neuro checks * She was unable to receive MRI yesterday due to confusion, will give Ativan as pretreatment and try to get MRI today Type 2 diabetes * We'll check a hemoglobin A1c, she has actually been hypoglycemic, hold insulin for now Hypoglycemia * Continue dextrose drip, we'll attempt to start her on a diet today, speech and swallow evaluation Stage IV CKD * Creatinine appears to be at baseline, avoid nephrotoxic agents. Hyperkalemia * resolved, continue to hold TEODORO Hypertensive urgency * Optimize blood pressure medications Moderate Malnutrition * nutrition consult DVT prophylaxis * loveanastaciox I phoned her daughter to use a Vini at [phone], was not able to reach anyone therefore left a message, awaiting her call back History Interval history: The patient has not been verbal, she still confused, not making sense, obese on commands, does not seem to understand others. After her nurse she was hypoglycemic and tachycardic overnight Hospitalist Physical - Physical exam Narrative exam: General.: Appears well, no distress, nontoxic, unkempt HEENT: Moist mucous membranes, extraocular muscles intact, no lymphadenopathy Neck: supple Cardiac: S1-S2 heard Lungs: clear to auscultation bilaterally Abdomen: soft , nontender, nondistended, bowel sounds positive Extremities: no edema clubbing or cyanosis Skin: no rash or lesions Neurologic: Confused, verbal, but did not communicating well, not making sense, not obeying commands, moves extremities. Psych: Limited exam as patient is nonverbal, - Constitutional Vitals: Temp Pulse Resp BP Pulse Ox 98.3 F 121 H 20 159/86 99 03/05/17 03:55 03/05/17 08:01 03/05/17 08:01 03/05/17 08:01 03/05/17 10:00 General appearance: Present: disheveled Results - Labs CBC & Chem 7: 03/04/17 05:43 03/04/17 05:43 Labs: Laboratory Last Values WBC 12.9 K/mm3 (4.5-11.0) H 03/04/17 05:43 RBC 3.59 M/mm3 (3.65-5.03) L 03/04/17 05:43 Hgb 9.8 gm/dl (10.1-14.3) L 03/04/17 05:43 Hct 30.3 % (30.3-42.9) 03/04/17 05:43 MCV 85 fl (79-97) 03/04/17 05:43 MCH 27 pg (28-32) L 03/04/17 05:43 MCHC 32 % (30-34) 03/04/17 05:43 RDW 13.6 % (13.2-15.2) 03/04/17 05:43 Plt Count 202 K/mm3 (140-440) 03/04/17 05:43 Lymph % (Auto) 13.4 % (13.4-35.0) 03/04/17 05:43 [place] % (Auto) 4.3 % (0.0-7.3) 03/04/17 05:43 Eos % (Auto) 1.3 % (0.0-4.3) 03/04/17 05:43 Baso % (Auto) 0.9 % (0.0-1.8) 03/04/17 05:43 Lymph # 1.7 K/mm3 (1.2-5.4) 03/04/17 05:43 [place] # 0.6 K/mm3 (0.0-0.8) 03/04/17 05:43 Eos # 0.2 K/mm3 (0.0-0.4) 03/04/17 05:43 Baso # 0.1 K/mm3 (0.0-0.1) 03/04/17 05:43 Seg Neutrophils % 80.1 % (40.0-70.0) H 03/04/17 05:43 Seg Neutrophils # 10.3 K/mm3 (1.8-7.7) H 03/04/17 05:43 D-Dimer 211.87 ng/mlDDU (0-234) 03/03/17 17:43 POC ABG pH 7.345 (7.35-7.45) L 03/04/17 00:00 POC ABG pCO2 37.3 (35-45) 03/04/17 00:00 POC ABG pO2 72 (80-105) L 03/04/17 00:00 POC ABG HCO3 20.3 03/04/17 00:00 POC ABG Total CO2 21 03/04/17 00:00 POC ABG O2 Sat 93 03/04/17 00:00 POC ABG Base Excess -5 03/04/17 00:00 FiO2 21 % 03/04/17 00:00 Sodium 140 mmol/L (137-145) 03/04/17 05:43 Potassium 5.0 mmol/L (3.6-5.0) 03/04/17 05:43 Chloride 105.2 mmol/L (98-107) 03/04/17 05:43 Carbon Dioxide 16 mmol/L (22-30) L 03/04/17 05:43 Anion Gap 24 mmol/L 03/04/17 05:43 BUN 30 mg/dL (7-17) H 03/04/17 05:43 Creatinine 3.3 mg/dL (0.7-1.2) H 03/04/17 05:43 Estimated GFR 18 ml/min 03/04/17 05:43 BUN/Creatinine Ratio 9.09 % 03/04/17 05:43 Glucose 48 mg/dL (65-100) L 03/04/17 05:43 POC Glucose 82 (70-105) 03/05/17 05:17 Lactic Acid 0.50 mmol/L (0.7-2.0) L 03/03/17 23:25 Calcium 8.8 mg/dL (8.4-10.2) 03/04/17 05:43 Total Bilirubin 0.50 mg/dL (0.1-1.2) 03/04/17 05:43 AST 32 units/L (5-40) 03/04/17 05:43 ALT 16 units/L (7-56) 03/04/17 05:43 Alkaline Phosphatase 99 units/L (35-129) 03/04/17 05:43 Ammonia 18.0 umol/L (25-60) L 03/04/17 15:38 Troponin T 0.038 ng/mL (0.00-0.029) H D 03/03/17 23:25 Total Protein 6.8 g/dL (6.3-8.2) 03/04/17 05:43 Albumin 3.3 g/dL (3.9-5) L 03/04/17 05:43 Albumin/Globulin Ratio 0.9 % 03/04/17 05:43 Triglycerides 121 mg/dL (2-149) 03/03/17 16:15 Cholesterol 166 mg/dL (50-199) 03/03/17 16:15 LDL Cholesterol Direct 90 mg/dL (50-130) 03/03/17 16:15 HDL Cholesterol 52 mg/dL (40-59) 03/03/17 16:15 Cholesterol/HDL Ratio 3.19 % 03/03/17 16:15 Lipase 30 units/L (13-60) 03/03/17 15:45 Urine Color [place] (Yellow) 03/03/17 15:01 Urine Turbidity Clear (Clear) 03/03/17 15:01 Urine pH 6.0 (5.0-7.0) 03/03/17 15:01 Ur Specific [place] 1.015 (1.003-1.030) 03/03/17 15:01 Urine Protein >500 mg/dL (Negative) 03/03/17 15:01 Urine Glucose (UA) 50 mg/dL (Negative) 03/03/17 15:01 Urine Ketones Tr mg/dL (Negative) 03/03/17 15:01 Urine Blood Mod (Negative) 03/03/17 15:01 Urine Nitrite Pos (Negative) 03/03/17 15:01 Urine Bilirubin Neg (Negative) 03/03/17 15:01 Urine Urobilinogen 2.0 mg/dL (<2.0) 03/03/17 15:01 Ur Leukocyte Esterase Neg (Negative) 03/03/17 15:01 Urine WBC (Auto) 1.0 /HPF (0.0-6.0) 03/03/17 15:01 Urine RBC (Auto) 1.0 /HPF (0.0-6.0) 03/03/17 15:01 U Epithel Cells (Auto) < 1.0 /HPF (0-13.0) 03/03/17 15:01 Urine Bacteria (Auto) 1+ /HPF (Negative) 03/03/17 15:01 Urine HCG, Qual Negative (Negative) 03/03/17 15:01 Random Vancomycin 14.3 ug/mL (0-40.0) 03/05/17 08:19 Salicylates < 0.3 mg/dL (2.8-20.0) L 03/03/17 15:45 Urine Opiates Screen Presumptive negative 03/03/17 14:50 Urine Methadone Screen Presumptive negative 03/03/17 14:50 Acetaminophen < 15.0 ug/mL (10.0-30.0) 03/03/17 15:45 Ur Barbiturates Screen Presumptive negative 03/03/17 14:50 Ur Phencyclidine Scrn Presumptive negative 03/03/17 14:50 Ur Amphetamines Screen Presumptive negative 03/03/17 14:50 U Benzodiazepines Scrn Presumptive negative 03/03/17 14:50 Urine Cocaine Screen Presumptive negative 03/03/17 14:50 U Marijuana (THC) Screen Presumptive negative 03/03/17 14:50 Drugs of Abuse Note Disclamer 03/03/17 14:50 Plasma/Serum Alcohol < 0.01 gm% (0-0.07) 03/03/17 15:45 HIV 1&2 Antibody Rapid Non react (Non React) 03/04/17 15:37 HIV P24 Antigen Non react (Non React) 03/04/17 15:37 Blood Type O POSITIVE 03/03/17 20:14 Antibody Screen Negative 03/03/17 20:14 - Imaging and Cardiology Chest x-ray: image reviewed (no infiltrates)
[2017-03-05] MEDS ORDERED: ATIVAN IV ONE ×2 (11:30→13:53)
--- NOTE | 2017-03-05 15:26 | Magnetic Resonance Report ---
FINAL REPORT EXAM: MR MRA/MRV HEAD WO CON HISTORY: stroke TECHNIQUE: Multiplanar multisequence brain arterial vascular MRA imaging 3-D image postprocessing. PRIORS: Brain MRI 03/05/[address] 03/03/2017 FINDINGS: Vertebral arteries: Normal. Basilar artery: Normal. Internal carotid arteries: Normal. Anterior cerebral arteries: Normal. Middle cerebral arteries: Normal. Posterior cerebral arteries: Normal. Occlusion: None. Vascular malformations: None. Aneurysm: None. Small chronic lacunar infarct in central alfred. IMPRESSION: No definite brain vascular pathology Small chronic appearing lacunar infarct in central alfred
--- NOTE | 2017-03-05 15:31 | Magnetic Resonance Report ---
FINAL REPORT EXAM: MR BRAIN WO CON HISTORY: stroke TECHNIQUE: Multiplanar multisequence brain MR imaging without IV contrast. PRIORS: Head CT 03/03/2017 FINDINGS: Chronic appearing lacunar infarct in central alfred extending into right cerebral peduncle. Chronic lacunar infarct also in left basal ganglia Patient motion artifact degrades image quality and limits the examination. The included air filled sinuses contain no acute fluid level. Foci of hyperintensity in the cerebral white matter, while nonspecific, are present and usually attributed to chronic ischemic gliosis. It can occur secondary to the normal aging process, hypertension, or arterial sclerotic vascular disease. The differential includes any cause of gliosis as well as demyelination in the appropriate clinical setting. There is ventricular and sulcal prominence compatible with mild global symmetric cerebrocortical atrophy. The brain is without mass, mass effect, hemorrhage, or acute infarct. There are no areas of brain restricted diffusion to suggest an acute ischemic infarct. There is no midline shift or brain edema. IMPRESSION: No acute CVA or brain mass Chronic lacunar infarct in the central alfred extending into right cerebral peduncle Chronic lacunar infarct in left basal ganglia
[2017-03-05] MEDS ORDERED: NACL 0.9% 250ML 0 ML ONE (17:21)
[2017-03-05] MEDS: VANCOMYCIN/NS 1 GM/250 ML 1 GM/250 ML BAG IV SCH (18:55)
[2017-03-05] MEDS ORDERED: NACL 0.45% 500 ML IV SCH (22:00)
[2017-03-05] MEDS: ZOCOR PO SCH (22:18)
[2017-03-06] MEDS: ATIVAN IV PRN (01:42)
[2017-03-06] MEDS: APRESOLINE IV PRN ×2 (01:42→06:28)
[2017-03-06] MEDS: ZOSYN/NS 2.25 GM/50ML 2.25 GM/50 ML BAG IV SCH ×4 (04:55→23:09)
[2017-03-06] MEDS ORDERED: NACL 0.45% 500 ML IV SCH (06:00)
--- NOTE | 2017-03-06 09:27 | Progress Note ---
Subjective Interval history: Patient was seen today for follow-up on multiple renal-related issues Denies any complaints of chest pain pressure or shortness of breath She is tolerating IV fluid therapy well Mildly tachycardic at this time but in no distress Events of 24 hours, interdisciplinary notes were also reviewed Lab results were reviewed Social history: Reviewed Medication: Reviewed Family history: Reviewed Allergies: Reviewed Physical examination General; no acute distress HEENT: Mild pallor no icterus oral mucosa moist Neck: Supple soft no jugular venous distention Chest: Bilateral clear to auscultation anteriorly posteriorly a few faint basilar crackles at the lung bases no wheezes Cardiovascular: S1-S2 heart no S3-S4 Abdomen: Soft nontender no voluntary guarding rigidity rebound no organomegaly no masses no suprapubic fullness no CVA tenderness Extremity: Minimal edema dry skin no tenderness in the Area Derm: Dry skin Assessment and plan Renal failure: Patient's renal function currently appears to be improving well, she does not need to be on lisinopril that needs to be discontinued immediately She is at risk for renovascular hypertension, blood pressure needs to monitor closely Hyperkalemia clinically better at this time Metabolic acidosis to add sodium bicarbonate anemia and renal failur Hiatus progression to end-st High-grade proteinuria that needs follow-up, patient likely has nephrotic range proteinuria Patient does have multiple risk factors for underlying chronic kidney disease and progression over time There are no records of creatinine in the past here in our system Patient has a history of stroke and has not able to provide any further history Currently on vancomycin and Zosyn need to monitor renal function closely Accelerated hypertension would suggest increasing hydralazine and adding clonidine at this time We'll continue to follow and make recommendation from renal standpoint Objective - Vital Signs Vital signs: Vital Signs - 12hr 03/05/17 03/06/17 03/06/17 23:24 01:42 03:53 Temperature 99.2 F 98.8 F Pulse Rate 114 H 114 H 120 H Respiratory 18 18 Rate Blood Pressure 178/93 178/93 181/85 O2 Sat by Pulse 99 98 Oximetry 03/06/17 03/06/17 03/06/17 06:28 08:19 08:48 Temperature Pulse Rate 120 H 125 H Respiratory 22 Rate Blood Pressure 181/85 170/86 O2 Sat by Pulse 99 100 Oximetry - Lab 03/04/17 05:43 03/04/17 05:43 Most recent lab results Calcium 8.8 mg/dL (8.4-10.2) 03/04/17 05:43 Urine Creatinine 95.7 mg/dL (0.1-20.0) H 03/05/17 22:20 Urine Sodium 119 mEq/L 03/05/17 22:20 Urine Total Protein 565 mg/dL (5-11.8) H 03/05/17 22:20
[2017-03-06] MEDS: NOVOLOG SUB-Q SCH ×4 (10:09→21:11)
--- NOTE | 2017-03-06 10:25 | Progress Note ---
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 Her Daughter says she has stage IV chronic kidney disease. As she had premature CVA due to uncontrolled hypertension and diabetes, high daughter brings her in today With progressive confusion, over 1 week. Pt was seen and evaluated at [facility] and given antibiotics for a UTI and released back to home. But her daughter states that she got worse prompting her to call the ambulance which then brought her to [facility] Continue sepsis workup * UA negative, blood cultures negative, chest x-ray was repeated 2, no infiltrates * I am concerned that she has a partially treated UTI, she did receive antibiotics at [facility]. On gross examination of the urine contains a lot of sediment. Sepsis/UTI * Continue empiric antibiotics, follow-up urine cultures Metabolic Encephalopathy * Etiology most likely due to UTI/sepsis, clinically improving, CT head does show global atrophy, but no acute findings, HIV screening negative, neurology consult appreciated * Continue stroke workup as outlined below, MRI does not show any acute abnormality, Ammonia level was normal * obtain EEG to r/o abscence seizure CVA was ruled out, * CAT scan and MRI were negative, no gross focal deficits on exam Type 2 diabetes * We'll check a hemoglobin A1c, she has actually been hypoglycemic, hold insulin for now Diabetes type 2, insulin-dependent, presented with Hypoglycemia * Now resolved, continue diet and sliding scale, follow-up A1c Dysphasia * Speech therapy evaluation appreciated, that has not been changed to mechanical soft diet with thin liquids Stage IV CKD * Creatinine appears to be at baseline, avoid nephrotoxic agents. Hyperkalemia * Result, follow-up BMP today Hypertensive urgency * Optimize blood pressure medications Moderate Malnutrition * nutrition consult DVT prophylaxis * lovenox I communicated the plan to her daughter Anamaria Martini at [phone], and the plan was also discussed with the patient's grandfather History Interval history: Mentation has improved, she is now awake and alert and of being commands. She has poor recollection of what happened the first few days of her hospitalization. She is complaining of generalized weakness Hospitalist Physical - Physical exam Narrative exam: General.: Appears well, no distress, nontoxic, HEENT: Moist mucous membranes, extraocular muscles intact, no lymphadenopathy Neck: supple Cardiac: S1-S2 heard Lungs: clear to auscultation bilaterally Abdomen: soft , nontender, nondistended, bowel sounds positive Extremities: no edema clubbing or cyanosis Skin: no rash or lesions Neurologic: No focal deficits, responses are slow, but she is oriented 3 Psych: Calm and cooperative - Constitutional Vitals: Temp Pulse Resp BP Pulse Ox 98.8 F 121 H 22 170/86 100 03/06/17 03:53 03/06/17 10:00 03/06/17 08:48 03/06/17 08:48 03/06/17 08:48 General appearance: Present: disheveled Results - Labs CBC & Chem 7: 03/04/17 05:43 03/04/17 05:43 Labs: Laboratory Last Values WBC 12.9 K/mm3 (4.5-11.0) H 03/04/17 05:43 RBC 3.59 M/mm3 (3.65-5.03) L 03/04/17 05:43 Hgb 9.8 gm/dl (10.1-14.3) L 03/04/17 05:43 Hct 30.3 % (30.3-42.9) 03/04/17 05:43 MCV 85 fl (79-97) 03/04/17 05:43 MCH 27 pg (28-32) L 03/04/17 05:43 MCHC 32 % (30-34) 03/04/17 05:43 RDW 13.6 % (13.2-15.2) 03/04/17 05:43 Plt Count 202 K/mm3 (140-440) 03/04/17 05:43 Lymph % (Auto) 13.4 % (13.4-35.0) 03/04/17 05:43 [place] % (Auto) 4.3 % (0.0-7.3) 03/04/17 05:43 Eos % (Auto) 1.3 % (0.0-4.3) 03/04/17 05:43 Baso % (Auto) 0.9 % (0.0-1.8) 03/04/17 05:43 Lymph # 1.7 K/mm3 (1.2-5.4) 03/04/17 05:43 [place] # 0.6 K/mm3 (0.0-0.8) 03/04/17 05:43 Eos # 0.2 K/mm3 (0.0-0.4) 03/04/17 05:43 Baso # 0.1 K/mm3 (0.0-0.1) 03/04/17 05:43 Seg Neutrophils % 80.1 % (40.0-70.0) H 03/04/17 05:43 Seg Neutrophils # 10.3 K/mm3 (1.8-7.7) H 03/04/17 05:43 D-Dimer 211.87 ng/mlDDU (0-234) 03/03/17 17:43 POC ABG pH 7.345 (7.35-7.45) L 03/04/17 00:00 POC ABG pCO2 37.3 (35-45) 03/04/17 00:00 POC ABG pO2 72 (80-105) L 03/04/17 00:00 POC ABG HCO3 20.3 03/04/17 00:00 POC ABG Total CO2 21 03/04/17 00:00 POC ABG O2 Sat 93 03/04/17 00:00 POC ABG Base Excess -5 03/04/17 00:00 FiO2 21 % 03/04/17 00:00 Sodium 140 mmol/L (137-145) 03/04/17 05:43 Potassium 5.0 mmol/L (3.6-5.0) 03/04/17 05:43 Chloride 105.2 mmol/L (98-107) 03/04/17 05:43 Carbon Dioxide 16 mmol/L (22-30) L 03/04/17 05:43 Anion Gap 24 mmol/L 03/04/17 05:43 BUN 30 mg/dL (7-17) H 03/04/17 05:43 Creatinine 3.3 mg/dL (0.7-1.2) H 03/04/17 05:43 Estimated GFR 18 ml/min 03/04/17 05:43 BUN/Creatinine Ratio 9.09 % 03/04/17 05:43 Glucose 48 mg/dL (65-100) L 03/04/17 05:43 POC Glucose 266 (70-105) H 03/05/17 23:52 Lactic Acid 0.50 mmol/L (0.7-2.0) L 03/03/17 23:25 Calcium 8.8 mg/dL (8.4-10.2) 03/04/17 05:43 Total Bilirubin 0.50 mg/dL (0.1-1.2) 03/04/17 05:43 AST 32 units/L (5-40) 03/04/17 05:43 ALT 16 units/L (7-56) 03/04/17 05:43 Alkaline Phosphatase 99 units/L (35-129) 03/04/17 05:43 Ammonia 18.0 umol/L (25-60) L 03/04/17 15:38 Troponin T 0.038 ng/mL (0.00-0.029) H D 03/03/17 23:25 Total Protein 6.8 g/dL (6.3-8.2) 03/04/17 05:43 Albumin 3.3 g/dL (3.9-5) L 03/04/17 05:43 Albumin/Globulin Ratio 0.9 % 03/04/17 05:43 Triglycerides 121 mg/dL (2-149) 03/03/17 16:15 Cholesterol 166 mg/dL (50-199) 03/03/17 16:15 LDL Cholesterol Direct 90 mg/dL (50-130) 03/03/17 16:15 HDL Cholesterol 52 mg/dL (40-59) 03/03/17 16:15 Cholesterol/HDL Ratio 3.19 % 03/03/17 16:15 Lipase 30 units/L (13-60) 03/03/17 15:45 Urine Color [place] (Yellow) 03/03/17 15:01 Urine Turbidity Clear (Clear) 03/03/17 15:01 Urine pH 6.0 (5.0-7.0) 03/03/17 15:01 Ur Specific [place] 1.015 (1.003-1.030) 03/03/17 15:01 Urine Protein >500 mg/dL (Negative) 03/03/17 15:01 Urine Glucose (UA) 50 mg/dL (Negative) 03/03/17 15:01 Urine Ketones Tr mg/dL (Negative) 03/03/17 15:01 Urine Blood Mod (Negative) 03/03/17 15:01 Urine Nitrite Pos (Negative) 03/03/17 15:01 Urine Bilirubin Neg (Negative) 03/03/17 15:01 Urine Urobilinogen 2.0 mg/dL (<2.0) 03/03/17 15:01 Ur Leukocyte Esterase Neg (Negative) 03/03/17 15:01 Urine WBC (Auto) 1.0 /HPF (0.0-6.0) 03/03/17 15:01 Urine RBC (Auto) 1.0 /HPF (0.0-6.0) 03/03/17 15:01 U Epithel Cells (Auto) < 1.0 /HPF (0-13.0) 03/03/17 15:01 Urine Bacteria (Auto) 1+ /HPF (Negative) 03/03/17 15:01 Urine Creatinine 95.7 mg/dL (0.1-20.0) H 03/05/17 22:20 Urine Sodium 119 mEq/L 03/05/17 22:20 Urine Total Protein 565 mg/dL (5-11.8) H 03/05/17 22:20 Urine HCG, Qual Negative (Negative) 03/03/17 15:01 Random Vancomycin 38.7 ug/mL (0-40.0) 03/05/17 21:27 Salicylates < 0.3 mg/dL (2.8-20.0) L 03/03/17 15:45 Urine Opiates Screen Presumptive negative 03/03/17 14:50 Urine Methadone Screen Presumptive negative 03/03/17 14:50 Acetaminophen < 15.0 ug/mL (10.0-30.0) 03/03/17 15:45 Ur Barbiturates Screen Presumptive negative 03/03/17 14:50 Ur Phencyclidine Scrn Presumptive negative 03/03/17 14:50 Ur Amphetamines Screen Presumptive negative 03/03/17 14:50 U Benzodiazepines Scrn Presumptive negative 03/03/17 14:50 Urine Cocaine Screen Presumptive negative 03/03/17 14:50 U Marijuana (THC) Screen Presumptive negative 03/03/17 14:50 Drugs of Abuse Note Disclamer 03/03/17 14:50 Plasma/Serum Alcohol < 0.01 gm% (0-0.07) 03/03/17 15:45 Hepatitis A IgM Ab Non-reactive (NonReactive) 03/05/17 08:19 Hep Bs Antigen Non-reactive (Negative) 03/05/17 08:19 Hep B Core IgM Ab Non-reactive (NonReactive) 03/05/17 08:19 Hepatitis C Antibody Non-reactive (NonReactive) 03/05/17 08:19 HIV 1&2 Antibody Rapid Non react (Non React) 03/04/17 15:37 HIV P24 Antigen Non react (Non React) 03/04/17 15:37 Blood Type O POSITIVE 03/03/17 20:14 Antibody Screen Negative 03/03/17 20:14 - Imaging and Cardiology MRI - head: image reviewed (no acute pathology, no stroke)
[2017-03-06] MEDS ORDERED: ZESTRIL PO SCH (15:00)
[2017-03-06] MEDS: NORVASC PO SCH (15:07)
[2017-03-06] MEDS ORDERED: XOPENEX IH PRN (16:34)
[2017-03-06] MEDS ORDERED: CATAPRES-TTS PATCH TD SCH (17:00)
[2017-03-06] MEDS: VANCOMYCIN/NS 1 GM/250 ML 1 GM/250 ML BAG IV SCH (17:43)
[2017-03-06] MEDS: TYLENOL PO PRN (21:11)
[2017-03-06] MEDS: ZOCOR PO SCH (21:11)
[2017-03-06] MEDS: ZOFRAN IV PRN (23:09)
[2017-03-07 01:22] LABS: Hematocrit 31.7 % (30.3-42.9); Hemoglobin 10.1 gm/dl (10.1-14.3); Mean Corpuscular HGB Conc 32 % (30-34); Mean Corpuscular Hemoglobin 27 pg (28-32); Mean Corpuscular Volume 84 fl (79-97); Platelet Count 231 K/mm3 (140-440); Red Blood Count 3.76 M/mm3 (3.65-5.03); Red Cell Distribution Width 13.5 % (13.2-15.2); White Blood Count 17.9 K/mm3 (4.5-11.0)
[2017-03-07 01:23] LABS: BUN/Creatinine Ratio 9.37; Calcium 9.4 mg/dL (8.4-10.2); Chloride 110.5 mmol/L (98-107); Potassium 3.7 mmol/L (3.6-5.0)
[2017-03-07] MEDS: APRESOLINE IV PRN ×2 (03:17→09:35)
[2017-03-07] MEDS: ZOSYN/NS 2.25 GM/50ML 2.25 GM/50 ML BAG IV SCH ×3 (03:27→17:39)
--- NOTE | 2017-03-07 08:47 | Progress Note ---
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 Her Daughter says she has stage IV chronic kidney disease. As she had premature CVA due to uncontrolled hypertension and diabetes, high daughter brings her in today With progressive confusion, over 1 week. Pt was seen and evaluated at [facility] and given antibiotics for a UTI and released back to home. But her daughter states that she got worse prompting her to call the ambulance which then brought her to [facility] Continue sepsis workup * UA negative, blood cultures negative, chest x-ray was repeated 2, no infiltrates * I am concerned that she has a partially treated UTI, she did receive antibiotics at [facility]. On gross examination of the urine contains a lot of sediment. Sepsis/UTI * Continue empiric antibiotics, follow-up urine cultures Metabolic Encephalopathy * Etiology most likely due to UTI/sepsis, clinically improving, CT head does show global atrophy, but no acute findings, HIV screening negative, neurology consult appreciated * Continue stroke workup as outlined below, MRI does not show any acute abnormality, Ammonia level was normal * Frequent reorientation Delirium * Frequent reorientation, continue supportive care CVA was ruled out, * CAT scan and MRI were negative, no gross focal deficits on exam Severe debility * PT consult appreciated, patient is very unsteady and a high risk for falls, discussed with case management about possible sick placements Type 2 diabetes * We'll check a hemoglobin A1c, she has actually been hypoglycemic, hold home insulin for now, continue sliding scale Diabetes type 2, insulin-dependent, presented with Hypoglycemia * Now resolved, continue diet and sliding scale, follow-up A1c Dysphasia * Speech therapy evaluation appreciated, that has not been changed to mechanical soft diet with thin liquids Stage IV CKD * Creatinine appears to be at baseline, avoid nephrotoxic agents. Hyperkalemia * Result, follow-up BMP today Hypertensive urgency * Optimize blood pressure medications Moderate Malnutrition * nutrition consult DVT prophylaxis * lovenox I communicated the plan to her daughter Anamaria Martini at [phone], and the plan was also discussed with the patient's grandfather History Interval history: He has waxing and waning periods of delirium. Otherwise she's been calm and cooperative Hospitalist Physical - Physical exam Narrative exam: General.: Appears well, no distress, nontoxic, HEENT: Moist mucous membranes, extraocular muscles intact, no lymphadenopathy Neck: supple Cardiac: S1-S2 heard Lungs: clear to auscultation bilaterally Abdomen: soft , nontender, nondistended, bowel sounds positive Extremities: no edema clubbing or cyanosis Skin: no rash or lesions Neurologic: No focal deficits, responses are slow, but she is oriented 3 Psych: Calm and cooperative - Constitutional Vitals: Temp Pulse Resp BP Pulse Ox 98.5 F 120 H 18 195/94 98 03/07/17 05:35 03/07/17 05:35 03/07/17 05:35 03/07/17 05:35 03/07/17 05:35 Results - Labs CBC & Chem 7: 03/07/17 00:11 03/08/17 12:01 Labs: Laboratory Last Values WBC 17.9 K/mm3 (4.5-11.0) H 03/07/17 00:11 RBC 3.76 M/mm3 (3.65-5.03) 03/07/17 00:11 Hgb 10.1 gm/dl (10.1-14.3) 03/07/17 00:11 Hct 31.7 % (30.3-42.9) 03/07/17 00:11 MCV 84 fl (79-97) 03/07/17 00:11 MCH 27 pg (28-32) L 03/07/17 00:11 MCHC 32 % (30-34) 03/07/17 00:11 RDW 13.5 % (13.2-15.2) 03/07/17 00:11 Plt Count 231 K/mm3 (140-440) 03/07/17 00:11 Lymph % (Auto) 13.4 % (13.4-35.0) 03/04/17 05:43 [place] % (Auto) 4.3 % (0.0-7.3) 03/04/17 05:43 Eos % (Auto) 1.3 % (0.0-4.3) 03/04/17 05:43 Baso % (Auto) 0.9 % (0.0-1.8) 03/04/17 05:43 Lymph # 1.7 K/mm3 (1.2-5.4) 03/04/17 05:43 [place] # 0.6 K/mm3 (0.0-0.8) 03/04/17 05:43 Eos # 0.2 K/mm3 (0.0-0.4) 03/04/17 05:43 Baso # 0.1 K/mm3 (0.0-0.1) 03/04/17 05:43 Seg Neutrophils % 80.1 % (40.0-70.0) H 03/04/17 05:43 Seg Neutrophils # 10.3 K/mm3 (1.8-7.7) H 03/04/17 05:43 D-Dimer 211.87 ng/mlDDU (0-234) 03/03/17 17:43 POC ABG pH 7.345 (7.35-7.45) L 03/04/17 00:00 POC ABG pCO2 37.3 (35-45) 03/04/17 00:00 POC ABG pO2 72 (80-105) L 03/04/17 00:00 POC ABG HCO3 20.3 03/04/17 00:00 POC ABG Total CO2 21 03/04/17 00:00 POC ABG O2 Sat 93 03/04/17 00:00 POC ABG Base Excess -5 03/04/17 00:00 FiO2 21 % 03/04/17 00:00 Sodium 147 mmol/L (137-145) H 03/07/17 00:11 Potassium 3.7 mmol/L (3.6-5.0) D 03/07/17 00:11 Chloride 110.5 mmol/L (98-107) H 03/07/17 00:11 Carbon Dioxide 20 mmol/L (22-30) L 03/07/17 00:11 Anion Gap 20 mmol/L 03/07/17 00:11 BUN 30 mg/dL (7-17) H 03/07/17 00:11 Creatinine 3.2 mg/dL (0.7-1.2) H 03/07/17 00:11 Estimated GFR 19 ml/min 03/07/17 00:11 BUN/Creatinine Ratio 9.37 % 03/07/17 00:11 Glucose 127 mg/dL (65-100) H 03/07/17 00:11 POC Glucose 269 (70-105) H 03/07/17 08:07 Hemoglobin A1c 7.5 % (4-6) H 03/07/17 00:11 Lactic Acid 0.50 mmol/L (0.7-2.0) L 03/03/17 23:25 Calcium 9.4 mg/dL (8.4-10.2) 03/07/17 00:11 Total Bilirubin 0.50 mg/dL (0.1-1.2) 03/04/17 05:43 AST 32 units/L (5-40) 03/04/17 05:43 ALT 16 units/L (7-56) 03/04/17 05:43 Alkaline Phosphatase 99 units/L (35-129) 03/04/17 05:43 Ammonia 18.0 umol/L (25-60) L 03/04/17 15:38 Troponin T 0.038 ng/mL (0.00-0.029) H D 03/03/17 23:25 Total Protein 6.8 g/dL (6.3-8.2) 03/04/17 05:43 Albumin 3.3 g/dL (3.9-5) L 03/04/17 05:43 Albumin/Globulin Ratio 0.9 % 03/04/17 05:43 Triglycerides 121 mg/dL (2-149) 03/03/17 16:15 Cholesterol 166 mg/dL (50-199) 03/03/17 16:15 LDL Cholesterol Direct 90 mg/dL (50-130) 03/03/17 16:15 HDL Cholesterol 52 mg/dL (40-59) 03/03/17 16:15 Cholesterol/HDL Ratio 3.19 % 03/03/17 16:15 Lipase 30 units/L (13-60) 03/03/17 15:45 Urine Color [place] (Yellow) 03/03/17 15:01 Urine Turbidity Clear (Clear) 03/03/17 15:01 Urine pH 6.0 (5.0-7.0) 03/03/17 15:01 Ur Specific [place] 1.015 (1.003-1.030) 03/03/17 15:01 Urine Protein >500 mg/dL (Negative) 03/03/17 15:01 Urine Glucose (UA) 50 mg/dL (Negative) 03/03/17 15:01 Urine Ketones Tr mg/dL (Negative) 03/03/17 15:01 Urine Blood Mod (Negative) 03/03/17 15:01 Urine Nitrite Pos (Negative) 03/03/17 15:01 Urine Bilirubin Neg (Negative) 03/03/17 15:01 Urine Urobilinogen 2.0 mg/dL (<2.0) 03/03/17 15:01 Ur Leukocyte Esterase Neg (Negative) 03/03/17 15:01 Urine WBC (Auto) 1.0 /HPF (0.0-6.0) 03/03/17 15:01 Urine RBC (Auto) 1.0 /HPF (0.0-6.0) 03/03/17 15:01 U Epithel Cells (Auto) < 1.0 /HPF (0-13.0) 03/03/17 15:01 Urine Bacteria (Auto) 1+ /HPF (Negative) 03/03/17 15:01 Urine Creatinine 95.7 mg/dL (0.1-20.0) H 03/05/17 22:20 Urine Sodium 119 mEq/L 03/05/17 22:20 Urine Total Protein 565 mg/dL (5-11.8) H 03/05/17 22:20 Urine HCG, Qual Negative (Negative) 03/03/17 15:01 Random Vancomycin 38.7 ug/mL (0-40.0) 03/05/17 21:27 Salicylates < 0.3 mg/dL (2.8-20.0) L 03/03/17 15:45 Urine Opiates Screen Presumptive negative 03/03/17 14:50 Urine Methadone Screen Presumptive negative 03/03/17 14:50 Acetaminophen < 15.0 ug/mL (10.0-30.0) 03/03/17 15:45 Ur Barbiturates Screen Presumptive negative 03/03/17 14:50 Ur Phencyclidine Scrn Presumptive negative 03/03/17 14:50 Ur Amphetamines Screen Presumptive negative 03/03/17 14:50 U Benzodiazepines Scrn Presumptive negative 03/03/17 14:50 Urine Cocaine Screen Presumptive negative 03/03/17 14:50 U Marijuana (THC) Screen Presumptive negative 03/03/17 14:50 Drugs of Abuse Note Disclamer 03/03/17 14:50 Plasma/Serum Alcohol < 0.01 gm% (0-0.07) 03/03/17 15:45 Hepatitis A IgM Ab Non-reactive (NonReactive) 03/05/17 08:19 Hep Bs Antigen Non-reactive (Negative) 03/05/17 08:19 Hep B Core IgM Ab Non-reactive (NonReactive) 03/05/17 08:19 Hepatitis C Antibody Non-reactive (NonReactive) 03/05/17 08:19 HIV 1&2 Antibody Rapid Non react (Non React) 03/04/17 15:37 HIV P24 Antigen Non react (Non React) 03/04/17 15:37 Blood Type O POSITIVE 03/03/17 20:14 Antibody Screen Negative 03/03/17 20:14
--- NOTE | 2017-03-07 09:02 | Progress Note ---
Subjective Interval history: Patient was seen today for follow-up of multiple renal-related issues Denies any complaints of chest pain, pressure she did vomit this morning Events of 24 hours vitals, labs, intake output. Medications were reviewed Allergies: Reviewed Social history: Reviewed Family history: Reviewed Current medications: Reviewed Physical examination: Vitals: Reviewed HEENT: Oral mucosa moist Neck: Supple, no JVD Chest: Clear to auscultation anteriorly Heart: Revealed regular S1, S2 heard Abdomen: Soft, nontender. No renal bruit. No CVA tenderness. No suprapubic or less Extremity: Edema less than 1+ dry skin Neurological: Alert, oriented, oriented Skin: Dry skin. No purpuric rashes Musculoskeletal: No joint effusion noted Assessment and plan are as follows Chronic kidney disease, likely to monitor and follow Patient has had nausea, vomiting this morning Hypertension. We'll consider adding Aldactone, check aldosterone and plasma renin level. Likely she may have secondary hypertension Check urine culture she needs workup of nausea, vomiting by primary team If blood pressure remains elevated, she may need to go on Cardene drip In the meantime, she can take medication with small sips of water Follow up on the pending studies Patient was also advised to make an appointment to the clinic upon discharge for follow-up Renal prognosis is guarded at this time to follow-up Objective - Vital Signs Vital signs: Vital Signs - 12hr 03/06/17 03/06/17 03/07/17 23:10 23:19 00:00 Temperature 99.0 F 99.0 F 99.0 F Pulse Rate 111 H 110 H Respiratory 18 18 18 Rate Blood Pressure 147/96 Blood Pressure 147/96 147/96 [Right] O2 Sat by Pulse 98 98 Oximetry 03/07/17 03/07/17 03/07/17 03:03 03:17 04:00 Temperature 99.4 F Pulse Rate 113 H 125 H Respiratory 18 Rate Blood Pressure 205/118 Blood Pressure 204/118 [Right] O2 Sat by Pulse 99 98 Oximetry 03/07/17 05:35 Temperature 98.5 F Pulse Rate 120 H Respiratory 18 Rate Blood Pressure Blood Pressure 195/94 [Right] O2 Sat by Pulse 98 Oximetry - Lab 03/07/17 00:11 03/07/17 00:11 Most recent lab results Calcium 9.4 mg/dL (8.4-10.2) 03/07/17 00:11 Urine Creatinine 95.7 mg/dL (0.1-20.0) H 03/05/17 22:20 Urine Sodium 119 mEq/L 03/05/17 22:20 Urine Total Protein 565 mg/dL (5-11.8) H 03/05/17 22:20
[2017-03-07] MEDS: NOVOLOG SUB-Q SCH ×4 (09:34→22:02)
[2017-03-07] MEDS: NORVASC PO SCH (09:35)
[2017-03-07] MEDS: CATAPRES PO SCH ×2 (14:55→22:00)
[2017-03-07] MEDS: ALDACTONE PO SCH (15:02)
[2017-03-08] MEDS: ZOSYN/NS 2.25 GM/50ML 2.25 GM/50 ML BAG IV SCH ×2 (00:10→03:36)
[2017-03-08] MEDS: ZOCOR PO SCH ×2 (00:12→22:00)
--- NOTE | 2017-03-08 08:38 | Progress Note ---
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 Her Daughter says she has stage IV chronic kidney disease. As she had premature CVA due to uncontrolled hypertension and diabetes, high daughter brings her in today With progressive confusion, over 1 week. Pt was seen and evaluated at [facility] and given antibiotics for a UTI and released back to home. But her daughter states that she got worse prompting her to call the ambulance which then brought her to [facility] Continue sepsis workup * UA negative, blood cultures negative, chest x-ray was repeated 2, no infiltrates * I am concerned that she has a partially treated UTI, she did receive antibiotics at [facility]. On gross examination of the urine contains a lot of sediment. * Discontinue Blair catheter, the escalate antibiotics, urine cultures negative so far Sepsis/UTI * Continue empiric antibiotics, urine cultures showed no growth till date Metabolic Encephalopathy * Etiology most likely due to UTI/sepsis, clinically improving, CT head does show global atrophy, but no acute findings, HIV screening negative, neurology consult appreciated * Continue stroke workup as outlined below, MRI does not show any acute abnormality, Ammonia level was normal * Frequent reorientation Delirium * Frequent reorientation, continue supportive care Hypernatremia/free water deficit/dehydration * IV fluids CVA was ruled out, * CAT scan and MRI were negative, no gross focal deficits on exam Severe debility * PT consult appreciated, patient is very unsteady and a high risk for falls, discussed with case management about possible sick placements Diabetes type 2, insulin-dependent, presented with Hypoglycemia * hemoglobin A1c was 7.5. She was hypoglycemic on arrival. It appears as he is clinically improved and she is eating more, her glucose levels have rebounded. Continue sliding scale and initiate low-dose Levemi * Hypoglycemia has Now resolved, continue diet and sliding scale, follow-up A1c Dysphasia * Speech therapy evaluation appreciated, that has not been changed to mechanical soft diet with thin liquids Stage IV CKD * Creatinine appears to be at baseline, avoid nephrotoxic agents. Hyperkalemia * Result, follow-up BMP today Hypertensive urgency * Optimize blood pressure medications Moderate Malnutrition * nutrition consult DVT prophylaxis * lovenox I communicated the plan to her daughter Anamaria Martini at [phone], and the plan was also discussed with the patient's grandfather History Interval history: He has waxing and waning periods of delirium. Otherwise she's been calm and cooperative Hospitalist Physical - Physical exam Narrative exam: General.: Appears well, no distress, nontoxic, HEENT: Moist mucous membranes, extraocular muscles intact, no lymphadenopathy Neck: supple Cardiac: S1-S2 heard Lungs: clear to auscultation bilaterally Abdomen: soft , nontender, nondistended, bowel sounds positive Extremities: no edema clubbing or cyanosis Skin: no rash or lesions Neurologic: No focal deficits, responses are slow, but she is oriented 3 Psych: Calm and cooperative - Constitutional Vitals: Temp Pulse Resp BP Pulse Ox 97.9 F 86 18 135/85 99 03/08/17 04:01 03/08/17 08:05 03/08/17 04:01 03/08/17 04:01 03/08/17 08:05 General appearance: Present: disheveled Results - Labs CBC & Chem 7: 03/07/17 00:11 03/08/17 12:01 Labs: Laboratory Last Values WBC 17.9 K/mm3 (4.5-11.0) H 03/07/17 00:11 RBC 3.76 M/mm3 (3.65-5.03) 03/07/17 00:11 Hgb 10.1 gm/dl (10.1-14.3) 03/07/17 00:11 Hct 31.7 % (30.3-42.9) 03/07/17 00:11 MCV 84 fl (79-97) 03/07/17 00:11 MCH 27 pg (28-32) L 03/07/17 00:11 MCHC 32 % (30-34) 03/07/17 00:11 RDW 13.5 % (13.2-15.2) 03/07/17 00:11 Plt Count 231 K/mm3 (140-440) 03/07/17 00:11 Lymph % (Auto) 13.4 % (13.4-35.0) 03/04/17 05:43 [place] % (Auto) 4.3 % (0.0-7.3) 03/04/17 05:43 Eos % (Auto) 1.3 % (0.0-4.3) 03/04/17 05:43 Baso % (Auto) 0.9 % (0.0-1.8) 03/04/17 05:43 Lymph # 1.7 K/mm3 (1.2-5.4) 03/04/17 05:43 [place] # 0.6 K/mm3 (0.0-0.8) 03/04/17 05:43 Eos # 0.2 K/mm3 (0.0-0.4) 03/04/17 05:43 Baso # 0.1 K/mm3 (0.0-0.1) 03/04/17 05:43 Seg Neutrophils % 80.1 % (40.0-70.0) H 03/04/17 05:43 Seg Neutrophils # 10.3 K/mm3 (1.8-7.7) H 03/04/17 05:43 D-Dimer 211.87 ng/mlDDU (0-234) 03/03/17 17:43 POC ABG pH 7.345 (7.35-7.45) L 03/04/17 00:00 POC ABG pCO2 37.3 (35-45) 03/04/17 00:00 POC ABG pO2 72 (80-105) L 03/04/17 00:00 POC ABG HCO3 20.3 03/04/17 00:00 POC ABG Total CO2 21 03/04/17 00:00 POC ABG O2 Sat 93 03/04/17 00:00 POC ABG Base Excess -5 03/04/17 00:00 FiO2 21 % 03/04/17 00:00 Sodium 147 mmol/L (137-145) H 03/07/17 00:11 Potassium 3.7 mmol/L (3.6-5.0) D 03/07/17 00:11 Chloride 110.5 mmol/L (98-107) H 03/07/17 00:11 Carbon Dioxide 20 mmol/L (22-30) L 03/07/17 00:11 Anion Gap 20 mmol/L 03/07/17 00:11 BUN 30 mg/dL (7-17) H 03/07/17 00:11 Creatinine 3.2 mg/dL (0.7-1.2) H 03/07/17 00:11 Estimated GFR 19 ml/min 03/07/17 00:11 BUN/Creatinine Ratio 9.37 % 03/07/17 00:11 Glucose 127 mg/dL (65-100) H 03/07/17 00:11 POC Glucose 264 (70-105) H 03/07/17 22:02 Hemoglobin A1c 7.5 % (4-6) H 03/07/17 00:11 Lactic Acid 0.50 mmol/L (0.7-2.0) L 03/03/17 23:25 Calcium 9.4 mg/dL (8.4-10.2) 03/07/17 00:11 Total Bilirubin 0.50 mg/dL (0.1-1.2) 03/04/17 05:43 AST 32 units/L (5-40) 03/04/17 05:43 ALT 16 units/L (7-56) 03/04/17 05:43 Alkaline Phosphatase 99 units/L (35-129) 03/04/17 05:43 Ammonia 18.0 umol/L (25-60) L 03/04/17 15:38 Troponin T 0.038 ng/mL (0.00-0.029) H D 03/03/17 23:25 Total Protein 6.8 g/dL (6.3-8.2) 03/04/17 05:43 Albumin 3.3 g/dL (3.9-5) L 03/04/17 05:43 Albumin/Globulin Ratio 0.9 % 03/04/17 05:43 Triglycerides 121 mg/dL (2-149) 03/03/17 16:15 Cholesterol 166 mg/dL (50-199) 03/03/17 16:15 LDL Cholesterol Direct 90 mg/dL (50-130) 03/03/17 16:15 HDL Cholesterol 52 mg/dL (40-59) 03/03/17 16:15 Cholesterol/HDL Ratio 3.19 % 03/03/17 16:15 Lipase 30 units/L (13-60) 03/03/17 15:45 Urine Color [place] (Yellow) 03/03/17 15:01 Urine Turbidity Clear (Clear) 03/03/17 15:01 Urine pH 6.0 (5.0-7.0) 03/03/17 15:01 Ur Specific [place] 1.015 (1.003-1.030) 03/03/17 15:01 Urine Protein >500 mg/dL (Negative) 03/03/17 15:01 Urine Glucose (UA) 50 mg/dL (Negative) 03/03/17 15:01 Urine Ketones Tr mg/dL (Negative) 03/03/17 15:01 Urine Blood Mod (Negative) 03/03/17 15:01 Urine Nitrite Pos (Negative) 03/03/17 15:01 Urine Bilirubin Neg (Negative) 03/03/17 15:01 Urine Urobilinogen 2.0 mg/dL (<2.0) 03/03/17 15:01 Ur Leukocyte Esterase Neg (Negative) 03/03/17 15:01 Urine WBC (Auto) 1.0 /HPF (0.0-6.0) 03/03/17 15:01 Urine RBC (Auto) 1.0 /HPF (0.0-6.0) 03/03/17 15:01 U Epithel Cells (Auto) < 1.0 /HPF (0-13.0) 03/03/17 15:01 Urine Bacteria (Auto) 1+ /HPF (Negative) 03/03/17 15:01 Urine Creatinine 95.7 mg/dL (0.1-20.0) H 03/05/17 22:20 Urine Sodium 119 mEq/L 03/05/17 22:20 Urine Total Protein 565 mg/dL (5-11.8) H 03/05/17 22:20 Urine HCG, Qual Negative (Negative) 03/03/17 15:01 Random Vancomycin 38.7 ug/mL (0-40.0) 03/05/17 21:27 Salicylates < 0.3 mg/dL (2.8-20.0) L 03/03/17 15:45 Urine Opiates Screen Presumptive negative 03/03/17 14:50 Urine Methadone Screen Presumptive negative 03/03/17 14:50 Acetaminophen < 15.0 ug/mL (10.0-30.0) 03/03/17 15:45 Ur Barbiturates Screen Presumptive negative 03/03/17 14:50 Ur Phencyclidine Scrn Presumptive negative 03/03/17 14:50 Ur Amphetamines Screen Presumptive negative 03/03/17 14:50 U Benzodiazepines Scrn Presumptive negative 03/03/17 14:50 Urine Cocaine Screen Presumptive negative 03/03/17 14:50 U Marijuana (THC) Screen Presumptive negative 03/03/17 14:50 Drugs of Abuse Note Disclamer 03/03/17 14:50 Plasma/Serum Alcohol < 0.01 gm% (0-0.07) 03/03/17 15:45 Hepatitis A IgM Ab Non-reactive (NonReactive) 03/05/17 08:19 Hep Bs Antigen Non-reactive (Negative) 03/05/17 08:19 Hep B Core IgM Ab Non-reactive (NonReactive) 03/05/17 08:19 Hepatitis C Antibody Non-reactive (NonReactive) 03/05/17 08:19 HIV 1&2 Antibody Rapid Non react (Non React) 03/04/17 15:37 HIV P24 Antigen Non react (Non React) 03/04/17 15:37 Blood Type O POSITIVE 03/03/17 20:14 Antibody Screen Negative 03/03/17 20:14
[2017-03-08] MEDS: NORVASC PO SCH (09:36)
[2017-03-08] MEDS: ALDACTONE PO SCH (09:37)
[2017-03-08] MEDS: CATAPRES PO SCH ×3 (09:37→21:06)
[2017-03-08] MEDS: KEFLEX PO SCH ×2 (10:46→22:00)
[2017-03-08] MEDS: NOVOLOG SUB-Q SCH ×3 (10:46→22:00)
[2017-03-08] MEDS: NACL 0.45% 1000 ML 1,000 ML IV SCH (12:50)
[2017-03-08 12:53] LABS: BUN/Creatinine Ratio 11.04; Calcium 8.4 mg/dL (8.4-10.2); Chloride 103.2 mmol/L (98-107)
--- NOTE | 2017-03-08 16:53 | Progress Note ---
Subjective Interval history: Patient was seen today for follow-up around 9:30 in the morning on multiple renal-related issues Denies any complaints of chest pain pressure or shortness of breath nausea and vomiting is better blood pressure is much better controlled Events of 24 hours, interdisciplinary notes were also reviewed Lab results were reviewed Social history: Reviewed Medication: Reviewed Family history: Reviewed Allergies: Reviewed Physical examination General; no acute distress HEENT: Mild pallor no icterus oral mucosa moist Neck: Supple soft no jugular venous distention Chest: Bilateral clear to auscultation anteriorly posteriorly a few faint basilar crackles at the lung bases no wheezes Cardiovascular: S1-S2 heart no S3-S4 Abdomen: Soft nontender no voluntary guarding rigidity rebound no organomegaly no masses no suprapubic fullness no CVA tenderness Extremity: Minimal edema dry skin no tenderness in the Area Derm: Dry skin Assessment and plan renal failure patient does have multiple risk factors,creatinine currently worse but patient clinically doing better Monitor labs in the morning and follow-up No acute or emergent indication for renal placement therapy strict intake and output accelerated hypertension but requires better control currently doing much better follow up on the pending lab,blood and urine culture does not show any growth Nausea and vomiting currently better today Patient is more alert awake and does understand much better than when she came in Some degree of encephalopathy was present upon admission which could be due to underlying stroke, and metabolic causes Plan of care was discussed with patient and I did inform her and simple [place]ian along with a nurse at bedside All questions were answered, patient does have good understanding of renal- related issues We'll continue to follow and make recommendation from renal standpoint Objective - Vital Signs Vital signs: Vital Signs - 12hr 03/08/17 03/08/17 03/08/17 08:05 09:59 12:18 Temperature 97.8 F Pulse Rate 86 82 Respiratory 18 Rate Blood Pressure 105/69 O2 Sat by Pulse 99 100 98 Oximetry - Lab 03/07/17 00:11 03/08/17 12:01 Most recent lab results Calcium 8.4 mg/dL (8.4-10.2) 03/08/17 12:01 Urine Creatinine 95.7 mg/dL (0.1-20.0) H 03/05/17 22:20 Urine Sodium 119 mEq/L 03/05/17 22:20 Urine Total Protein 565 mg/dL (5-11.8) H 03/05/17 22:20
--- NOTE | 2017-03-08 17:33 | Consultation ---
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 Her Daughter says she has stage IV chronic kidney disease. Psychiatry was consulted for behavior disturbances. Today patient was calm and cooperative during assessment. She stated that she didn't feel well prior to her admission to [facility]. She was able to ID the current and past [place] presidents and recall 2/3 numbers (4,8,12) within 5 mins. She stated that she live with family and had a stroke in the past. She denies a mental health dx. She denies SI/HI's, AVH's, and depression symptoms. She denies recreation drug use and alcohol consumption (etoh). Per the staff, no behavioral disturbances overnight. Medications and Allergies Allergies Allergy/AdvReac Type Severity Reaction Status Date / Time ibuprofen AdvReac Rash Verified 08/27/15 08:38 Home Medications Medication Instructions Recorded Confirmed Last Taken Type Amlodipine Besylate [Amlodipine 10 mg PO DAILY 08/27/15 03/04/17 1 Day Ago History Besylate] AtorvaSTATin [Lipitor] 40 mg PO DAILY 08/27/15 03/04/17 1 Day Ago History Gabapentin [Gabapentin] 300 mg PO TID 08/27/15 03/04/17 1 Day Ago History HYDROcodone/ACETAMINOPHEN [[place] 1 tab PO TID PRN 08/27/15 03/04/17 3 Days Ago History 7.5-325 mg TAB] Insulin Glulisine [Apidra] 20 units SC DAILY 08/27/15 03/04/17 1 Day Ago History Lisinopril [Lisinopril] 40 mg PO DAILY 08/27/15 03/04/17 1 Day Ago History Active Meds: Active Medications Acetaminophen (Tylenol) 650 mg PO Q4H PRN PRN Reason: Pain MILD(1-3)/Fever >100.5/LEE Last Admin: 03/06/17 21:11 Dose: 650 mg Amlodipine Besylate (Norvasc) 10 mg PO DAILY [facility] Last Admin: 03/08/17 09:36 Dose: 10 mg Atorvastatin Calcium (Lipitor) 40 mg PO DAILY [facility] Last Admin: 03/08/17 09:37 Dose: 40 mg Bisacodyl (Dulcolax) 10 mg ND QDAY PRN PRN Reason: Constipation unrelieved by MOM Cephalexin (Keflex) 500 mg PO Q12HR [facility] Last Admin: 03/08/17 10:46 Dose: 500 mg Clonidine HCl (Catapres) 0.4 mg PO TID [facility] Last Admin: 03/08/17 09:37 Dose: 0.4 mg Hydralazine HCl (Apresoline) 20 mg IV Q4H PRN PRN Reason: BP >160/100 Last Admin: 03/07/17 09:35 Dose: 20 mg Sodium Chloride (Nacl 0.45% 1000 Ml) 1,000 mls @ 100 mls/hr IV DIRECT [facility] Last Admin: 03/08/17 12:50 Dose: 100 mls/hr Insulin Aspart (Novolog) 0 units SUB-Q ACHS [facility] PRN Reason: Protocol Last Admin: 03/08/17 12:58 Dose: 4 units Insulin Detemir (Levemir) 8 units SUB-Q QHS [facility] Levalbuterol HCl (Xopenex) 0.63 mg IH Q8HRT PRN PRN Reason: Shortness Of Breath Lorazepam (Ativan) 1 mg IV Q4H PRN PRN Reason: Anxiety Last Admin: 03/06/17 01:42 Dose: 1 mg Magnesium Hydroxide (Milk Of Magnesia) 30 ml PO Q4H PRN PRN Reason: Constipation Metoclopramide HCl (Reglan) 10 mg PO Q6H PRN PRN Reason: Nausea And Vomiting Ondansetron HCl (Zofran) 4 mg IV Q8H PRN PRN Reason: N/V unrelieved by Reglan Last Admin: 03/06/17 23:09 Dose: 4 mg Promethazine HCl (Phenergan) 25 mg ND Q6H PRN PRN Reason: Nausea And Vomiting Simvastatin (Zocor) 20 mg PO QHS [facility] Last Admin: 03/08/17 00:12 Dose: 20 mg Sodium Chloride (Sodium Chloride Flush Syringe 10 Ml) 10 ml IV PRN PRN PRN Reason: LINE FLUSH Spironolactone (Aldactone) 25 mg PO QDAY [facility] Last Admin: 03/08/17 09:37 Dose: 25 mg Past psychiatric history - Past Medical History Past Medical History: hypertension, stroke Past Surgical History: cholecystectomy - past Psychiatric treatment and history psychiatric treatment history: Denies psy hx and a fam psy hx. - Social History Social history: lives with family Mental Status Exam - Vital signs Last Vital Signs Temp 97.8 F 03/08/17 12:18 Pulse 82 03/08/17 12:18 Resp 18 03/08/17 12:18 BP 105/69 03/08/17 12:18 Pulse Ox 98 03/08/17 12:18 - Exam Narrative exam: ROS: (-) depression, (-) psychosis MSE: Appearance: calm, cooperative Behavior: regular eye contact Speech: dysarthria Mood: "well" Affect: congruent to mood Thought Process: linear Thought Content: denies SI/HI's and AVH's Motor Activity: ambulatory Cognition: A/Ox 3 Insight: fair Judgment: fair Results Result Diagrams: 03/09/17 15:19 03/09/17 15:19 Abnormal lab results 03/06/17 03/07/17 03/07/17 Range/Units 17:52 17:50 22:02 BUN (7-17) mg/dL Creatinine (0.7-1.2) mg/dL Glucose (65-100) mg/dL POC Glucose 231 H 289 H 264 H (70-105) 03/08/17 Range/Units 12:01 BUN 53 H (7-17) mg/dL Creatinine 4.8 H (0.7-1.2) mg/dL Glucose 275 H (65-100) mg/dL POC Glucose (70-105) All other labs normal. Assessment and Plan Assessment and plan: Impression: Today patient was calm and cooperative during assessment. Patient pleasant and engaging. Medical: Metabolic Encephalopathy, but improving per Hospitalist note. Recommendation/Plan: Delirium precautions below. 1. Frequently reorient patient and involve him/her in their care (simple explanations of procedures, tests, medications). 2. Lights on and shades open during daytime hours. 3. Try to avoid unnecessary interruptions to sleep during nighttime hours. 4. Obtain glasses, hearing aids from home if patient uses these at baseline. 5. Avoid medications that may exacerbate delirium (especially narcotics, benzodiazepines, barbiturates, ambien, lunesta, and medications with excessive anticholinergic properties). 6. Will follow-up patient daily.
[2017-03-08] MEDS: TYLENOL PO PRN (20:18)
[2017-03-08] MEDS: LEVEMIR SUB-Q SCH (22:00)
[2017-03-09] MEDS: ATIVAN IV PRN (00:36)
[2017-03-09] MEDS: TYLENOL PO PRN (00:36)
[2017-03-09] MEDS: NACL 0.45% 1000 ML 1,000 ML IV SCH (08:39)
[2017-03-09] MEDS: CATAPRES PO SCH ×3 (08:39→22:21)
--- NOTE | 2017-03-09 09:10 | Progress Note ---
Subjective Interval history: Patient was seen today for follow-up, no new labs are available at this time No acute complaints reported by the patient no nausea or vomiting today Events of 24 hours noted Vitals labs intake output medications reviewed HEENT: Oral mucosa relatively dry Neck supple no JVD Chest: Clear to auscultation Heart: Regular rate and rhythm Abdomen: Soft nontender Extremity: Mild edema dry skin Reduced skin turgor Assessment and plan acute on chronic renal failure; will order for basic metabolic profile patient still appears to be clinically prerenal based on exam which includes oral mucosa which is dry skin dry skin Patient does need IV hydration and follow-up on the renal function Patient say that she is currently being followed by Dr. Grarido: Mentally she is much more alert awake and is comprehending information much better There is no acute emergent indication for renal replacement therapy Accelerated hypertension: Much better controlled Patient does not want to be discharged as she thinks she is not in good health Renal care plan was discussed with patient, we will order new labs and follow Patient likely will require increase hydration renal prognosis remains guarded at this time All questions were answered We'll continue to follow and make recommendation from renal standpoint Objective - Vital Signs Vital signs: Vital Signs - 12hr 03/08/17 03/08/17 03/09/17 21:29 22:00 00:12 Temperature 97.6 F Pulse Rate 70 69 Respiratory 18 Rate Blood Pressure 102/62 121/63 Blood Pressure [Right] O2 Sat by Pulse 96 Oximetry 03/09/17 03/09/17 00:18 04:18 Temperature 97.8 F 97.9 F Pulse Rate 69 78 Respiratory 18 20 Rate Blood Pressure Blood Pressure 121/63 131/71 [Right] O2 Sat by Pulse 98 Oximetry - Lab 03/09/17 15:19 03/09/17 15:19 Most recent lab results Calcium 8.4 mg/dL (8.4-10.2) 03/08/17 12:01 Urine Creatinine 95.7 mg/dL (0.1-20.0) H 03/05/17 22:20 Urine Sodium 119 mEq/L 03/05/17 22:20 Urine Total Protein 565 mg/dL (5-11.8) H 03/05/17 22:20
[2017-03-09] MEDS: KEFLEX PO SCH (09:29)
[2017-03-09] MEDS: NOVOLOG SUB-Q SCH ×4 (09:29→22:30)
[2017-03-09] MEDS: ALDACTONE PO SCH (09:30)
[2017-03-09] MEDS: NORVASC PO SCH (09:30)
--- NOTE | 2017-03-09 09:37 | Progress Note ---
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 Her Daughter says she has stage IV chronic kidney disease. As she had premature CVA due to uncontrolled hypertension and diabetes, high daughter brings her in today With progressive confusion, over 1 week. Pt was seen and evaluated at [facility] and given antibiotics for a UTI and released back to home. But her daughter states that she got worse prompting her to call the ambulance which then brought her to [facility] Sepsis Ruled out * UA negative, blood cultures negative, chest x-ray was repeated 2, no infiltrates * Urine cx negative also, discontinue all abx UTI ruled out, negative urine cx Metabolic Encephalopathy * Etiology most likely due to delireum and dehydration, clinically improving, CT head does show global atrophy, but no acute findings, HIV screening negative , neurology consult appreciated * Continue stroke workup as outlined below, MRI does not show any acute abnormality, Ammonia level was normal * Frequent reorientation Delirium * Frequent reorientation, continue supportive care Hypernatremia/free water deficit/dehydration * continue IV fluids * dc aldactone CVA was ruled out, * CAT scan and MRI were negative, no gross focal deficits on exam Severe debility * PT consult appreciated, patient is very unsteady and a high risk for falls, discussed with case management * home with home PT tomorrow Diabetes type 2, insulin-dependent, presented with Hypoglycemia * hemoglobin A1c was 7.5. She was hypoglycemic on arrival. It appears as he is clinically improved and she is eating more, her glucose levels have rebounded. Continue sliding scale and initiate low-dose Levemi * Hypoglycemia has Now resolved, continue diet and sliding scale, follow-up A1c Dysphasia * Speech therapy evaluation appreciated, continue mechanical soft diet with thin liquids APRYL upon Stage IV CKD, vasomotor nephropathy * continue IVF Hyperkalemia -received kayexalate, dc aldactone, now resolved , follow-up BMP daily Hypertensive urgency * Optimized blood pressure medications * now improved Moderate Malnutrition * nutrition consult appreciated * continue nutritional supplements DVT prophylaxis * lovenox I communicated the plan to her daughter Anamaria Martini at [phone], and the plan was also discussed with the patient's grandfather History Interval history: He has waxing and waning periods of delirium. Otherwise she's been calm and cooperative Hospitalist Physical - Physical exam Narrative exam: General.: Appears well, no distress, nontoxic, HEENT: Moist mucous membranes, extraocular muscles intact, no lymphadenopathy Neck: supple Cardiac: S1-S2 heard Lungs: clear to auscultation bilaterally Abdomen: soft , nontender, nondistended, bowel sounds positive Extremities: no edema clubbing or cyanosis Skin: no rash or lesions Neurologic: No focal deficits, responses are slow, but she is oriented 3 Psych: Calm and cooperative - Constitutional Vitals: Temp Pulse Resp BP Pulse Ox 97.9 F 78 20 131/71 98 03/09/17 04:18 03/09/17 04:18 03/09/17 04:18 03/09/17 04:18 03/09/17 04:18 General appearance: Present: disheveled Results - Labs CBC & Chem 7: 03/07/17 00:11 03/08/17 12:01 Labs: Laboratory Last Values WBC 17.9 K/mm3 (4.5-11.0) H 03/07/17 00:11 RBC 3.76 M/mm3 (3.65-5.03) 03/07/17 00:11 Hgb 10.1 gm/dl (10.1-14.3) 03/07/17 00:11 Hct 31.7 % (30.3-42.9) 03/07/17 00:11 MCV 84 fl (79-97) 03/07/17 00:11 MCH 27 pg (28-32) L 03/07/17 00:11 MCHC 32 % (30-34) 03/07/17 00:11 RDW 13.5 % (13.2-15.2) 03/07/17 00:11 Plt Count 231 K/mm3 (140-440) 03/07/17 00:11 Lymph % (Auto) 13.4 % (13.4-35.0) 03/04/17 05:43 [place] % (Auto) 4.3 % (0.0-7.3) 03/04/17 05:43 Eos % (Auto) 1.3 % (0.0-4.3) 03/04/17 05:43 Baso % (Auto) 0.9 % (0.0-1.8) 03/04/17 05:43 Lymph # 1.7 K/mm3 (1.2-5.4) 03/04/17 05:43 [place] # 0.6 K/mm3 (0.0-0.8) 03/04/17 05:43 Eos # 0.2 K/mm3 (0.0-0.4) 03/04/17 05:43 Baso # 0.1 K/mm3 (0.0-0.1) 03/04/17 05:43 Seg Neutrophils % 80.1 % (40.0-70.0) H 03/04/17 05:43 Seg Neutrophils # 10.3 K/mm3 (1.8-7.7) H 03/04/17 05:43 D-Dimer 211.87 ng/mlDDU (0-234) 03/03/17 17:43 POC ABG pH 7.345 (7.35-7.45) L 03/04/17 00:00 POC ABG pCO2 37.3 (35-45) 03/04/17 00:00 POC ABG pO2 72 (80-105) L 03/04/17 00:00 POC ABG HCO3 20.3 03/04/17 00:00 POC ABG Total CO2 21 03/04/17 00:00 POC ABG O2 Sat 93 03/04/17 00:00 POC ABG Base Excess -5 03/04/17 00:00 FiO2 21 % 03/04/17 00:00 Sodium 141 mmol/L (137-145) 03/08/17 12:01 Potassium 4.0 mmol/L (3.6-5.0) 03/08/17 12:01 Chloride 103.2 mmol/L (98-107) 03/08/17 12:01 Carbon Dioxide 24 mmol/L (22-30) 03/08/17 12:01 Anion Gap 18 mmol/L 03/08/17 12:01 BUN 53 mg/dL (7-17) H 03/08/17 12:01 Creatinine 4.8 mg/dL (0.7-1.2) H 03/08/17 12:01 Estimated GFR 12 ml/min 03/08/17 12:01 BUN/Creatinine Ratio 11.04 % 03/08/17 12:01 Glucose 275 mg/dL (65-100) H 03/08/17 12:01 POC Glucose 192 (70-105) H 03/08/17 21:55 Hemoglobin A1c 7.5 % (4-6) H 03/07/17 00:11 Lactic Acid 0.50 mmol/L (0.7-2.0) L 03/03/17 23:25 Calcium 8.4 mg/dL (8.4-10.2) 03/08/17 12:01 Total Bilirubin 0.50 mg/dL (0.1-1.2) 03/04/17 05:43 AST 32 units/L (5-40) 03/04/17 05:43 ALT 16 units/L (7-56) 03/04/17 05:43 Alkaline Phosphatase 99 units/L (35-129) 03/04/17 05:43 Ammonia 18.0 umol/L (25-60) L 03/04/17 15:38 Troponin T 0.038 ng/mL (0.00-0.029) H D 03/03/17 23:25 Total Protein 6.8 g/dL (6.3-8.2) 03/04/17 05:43 Albumin 3.3 g/dL (3.9-5) L 03/04/17 05:43 Albumin/Globulin Ratio 0.9 % 03/04/17 05:43 Triglycerides 121 mg/dL (2-149) 03/03/17 16:15 Cholesterol 166 mg/dL (50-199) 03/03/17 16:15 LDL Cholesterol Direct 90 mg/dL (50-130) 03/03/17 16:15 HDL Cholesterol 52 mg/dL (40-59) 03/03/17 16:15 Cholesterol/HDL Ratio 3.19 % 03/03/17 16:15 Lipase 30 units/L (13-60) 03/03/17 15:45 Urine Color [place] (Yellow) 03/03/17 15:01 Urine Turbidity Clear (Clear) 03/03/17 15:01 Urine pH 6.0 (5.0-7.0) 03/03/17 15:01 Ur Specific [place] 1.015 (1.003-1.030) 03/03/17 15:01 Urine Protein >500 mg/dL (Negative) 03/03/17 15:01 Urine Glucose (UA) 50 mg/dL (Negative) 03/03/17 15:01 Urine Ketones Tr mg/dL (Negative) 03/03/17 15:01 Urine Blood Mod (Negative) 03/03/17 15:01 Urine Nitrite Pos (Negative) 03/03/17 15:01 Urine Bilirubin Neg (Negative) 03/03/17 15:01 Urine Urobilinogen 2.0 mg/dL (<2.0) 03/03/17 15:01 Ur Leukocyte Esterase Neg (Negative) 03/03/17 15:01 Urine WBC (Auto) 1.0 /HPF (0.0-6.0) 03/03/17 15:01 Urine RBC (Auto) 1.0 /HPF (0.0-6.0) 03/03/17 15:01 U Epithel Cells (Auto) < 1.0 /HPF (0-13.0) 03/03/17 15:01 Urine Bacteria (Auto) 1+ /HPF (Negative) 03/03/17 15:01 Urine Creatinine 95.7 mg/dL (0.1-20.0) H 03/05/17 22:20 Urine Sodium 119 mEq/L 03/05/17 22:20 Urine Total Protein 565 mg/dL (5-11.8) H 03/05/17 22:20 Urine HCG, Qual Negative (Negative) 03/03/17 15:01 Random Vancomycin 38.7 ug/mL (0-40.0) 03/05/17 21:27 Salicylates < 0.3 mg/dL (2.8-20.0) L 03/03/17 15:45 Urine Opiates Screen Presumptive negative 03/03/17 14:50 Urine Methadone Screen Presumptive negative 03/03/17 14:50 Acetaminophen < 15.0 ug/mL (10.0-30.0) 03/03/17 15:45 Ur Barbiturates Screen Presumptive negative 03/03/17 14:50 Ur Phencyclidine Scrn Presumptive negative 03/03/17 14:50 Ur Amphetamines Screen Presumptive negative 03/03/17 14:50 U Benzodiazepines Scrn Presumptive negative 03/03/17 14:50 Urine Cocaine Screen Presumptive negative 03/03/17 14:50 U Marijuana (THC) Screen Presumptive negative 03/03/17 14:50 Drugs of Abuse Note Disclamer 03/03/17 14:50 Plasma/Serum Alcohol < 0.01 gm% (0-0.07) 03/03/17 15:45 Hepatitis A IgM Ab Non-reactive (NonReactive) 03/05/17 08:19 Hep Bs Antigen Non-reactive (Negative) 03/05/17 08:19 Hep B Core IgM Ab Non-reactive (NonReactive) 03/05/17 08:19 Hepatitis C Antibody Non-reactive (NonReactive) 03/05/17 08:19 HIV 1&2 Antibody Rapid Non react (Non React) 03/04/17 15:37 HIV P24 Antigen Non react (Non React) 03/04/17 15:37 Blood Type O POSITIVE 03/03/17 20:14 Antibody Screen Negative 03/03/17 20:14
[2017-03-09 15:34] LABS: Basophils % (Auto) 0.4 % (0.0-1.8); Eosinophils % (Auto) 1.7 % (0.0-4.3); Hematocrit 26.9 % (30.3-42.9); Hemoglobin 8.5 gm/dl (10.1-14.3); Mean Corpuscular HGB Conc 31 % (30-34); Mean Corpuscular Hemoglobin 26 pg (28-32); Mean Corpuscular Volume 84 fl (79-97); Platelet Count 179 K/mm3 (140-440); Red Blood Count 3.22 M/mm3 (3.65-5.03); Red Cell Distribution Width 13.4 % (13.2-15.2); White Blood Count 11.7 K/mm3 (4.5-11.0)
[2017-03-09 15:55] LABS: Calcium 8.2 mg/dL (8.4-10.2); Chloride 109.6 mmol/L (98-107); Potassium 3.9 mmol/L (3.6-5.0); Uric Acid 7.2 mg/dL (3.5-7.6)
[2017-03-09 20:15] LABS: Myeloperoxidase Antibody <1.0 AI (<1.0)
[2017-03-09] MEDS: ZOCOR PO SCH (22:21)
[2017-03-09] MEDS: LEVEMIR SUB-Q SCH (22:31)
[2017-03-10] MEDS: CATAPRES PO SCH ×2 (08:08→14:09)
[2017-03-10] MEDS: NOVOLOG SUB-Q SCH ×2 (08:33→11:55)
[2017-03-10] MEDS: TYLENOL PO PRN (08:38)
[2017-03-10 09:15] LABS: BUN/Creatinine Ratio 12.56; Potassium 4.1 mmol/L (3.6-5.0)
--- NOTE | 2017-03-10 09:18 | Progress Note ---
Subjective Interval history: Patient was seen today for follow-up, regarding multiple renal related issues Events of 24 hours were noted, blood pressure is well-controlled Patient denies any complaints of chest pain pressure or shortness of breath Interdisciplinary Notes were also reviewed from past 24 hours Vitals labs intake output medications: Reviewed Past medical history: Reviewed Allergies: Reviewed Social history: Reviewed Family history: Reviewed Physical examination Gen.: No acute distress HEENT: Mild pallor nor icterus no uremic order Neck: Supple without any mass or JVD Chest: Clear to auscultation anteriorly Heart: Regular rate and rhythm S1 and S2 heard Abdomen: Soft nontender no suprapubic fullness no masses no renal bruit Extremity: Edema , no peripheral cyanosis Skin: No petechial rashes dry skin Assessment and plan Acute on chronic renal failure patient's creatinine has improved Accelerated hypertension: Monitor and follow, currently well controlled with the present regimen would like to continue with this Ultrasonogram showed echogenic kidneys Anemia in chronic kidney disease current hemoglobin 8.5 she does need to see hematology, would avoid erythropoietin with history of prior stroke Metabolic acidosis can't use sodium bicarbonate 1 tablet twice a day for now History of stage IV chronic kidney disease: patient does need follow up next week in office she has not been in our system in office Nausea vomiting: Appears to be doing better Encephalopathy: Currently better history of prior stroke She does have chronic stroke on the right side on the MRI Had a detailed discussion with patient about renal care plan, Renal prognosis currently is guarded Significant lab finding were discussed with patient unexplained and simple Stateless Patient does have good understanding about renal related issues We'll continue to follow and make recommendation from renal standpoint Objective - Vital Signs Vital signs: Vital Signs - 12hr 03/09/17 03/10/17 03/10/17 22:14 01:27 05:09 Temperature 97.4 F L 98.4 F 98.5 F Pulse Rate 75 72 85 Respiratory 18 16 18 Rate Blood Pressure 128/73 132/96 133/71 [Right] O2 Sat by Pulse 98 99 97 Oximetry - Lab 03/09/17 15:19 03/10/17 08:04 Most recent lab results Calcium 8.0 mg/dL (8.4-10.2) L 03/10/17 08:04 Urine Creatinine 95.7 mg/dL (0.1-20.0) H 03/05/17 22:20 Urine Sodium 119 mEq/L 03/05/17 22:20 Urine Total Protein 565 mg/dL (5-11.8) H 03/05/17 22:20
--- NOTE | 2017-03-10 09:35 | Discharge Summary ---
Providers - Providers Date of Admission: 03/03/17 19:36 Attending physician: JUSTIN GONZALEZ MD 03/03/17 19:43 Occupational Therapy Evaluate and Treat [CONS] Routine Comment: Reason For Exam: Neuro deficits Physical Therapy Evaluation and Treat [CONS] Routine Comment: Reason For Exam: Neuro deficits 03/04/17 11:33 Consult to Dietitian/Nutrition [CONS] Routine Physician Instructions: Reason For Exam: Reason for Consult: Malnutrition 03/04/17 11:34 Consult to Physician [CONS] Routine Consulting Provider: KARYN VERDUZCO Reason For Exam: [email or web address] Place consult to:: Dr. Verduzco Notified:: Rohan WALKER Phone number called:: Was contact made?: Yes If yes, spoke with:: Jessica-Office Time called:: 12:19 03/05/17 11:09 Consult to Dietitian/Nutrition [CONS] Routine Physician Instructions: Reason For Exam: Reason for Consult: Malnutrition 03/05/17 11:10 Speech Therapy Evaluation and Treat [CONS] Routine Reason For Exam: dyshpagia 03/06/17 10:24 Consult to Physician [CONS] Routine Consulting Provider: KARIE GONZALEZ Reason For Exam: AMS Place consult to:: Sonia Notified:: no , but put on list Time called:: 12:00 03/07/17 16:11 Consult to Mental Health [CONS] Routine Reason For Exam: behavioral disturbance Place consult to:: [facility] Notified:: yes Phone number called:: [phone] Was contact made?: Yes Time called:: 16:17 Primary care physician: ANCHOR TACK PULLER Hospitalization Reason for admission: left hemiparesis Condition: Stable Hospital course: 46 YO Female with HTN, CVA 2 in 2014 complicated by dysarthria and left hemiparesis, DM, GERD, Nicotine Dependence. Her Daughter says she has stage IV chronic kidney disease. As she had CVA due to uncontrolled hypertension and diabetes, high daughter brings her in today With progressive confusion, over 1 week. Pt was seen and evaluated at [facility] and given antibiotics for a UTI and released back to home. But her daughter states that she got worse prompting her to call the ambulance which then brought her to [facility]. Patient was initially thought to have sepsis but this was ruled out. Urine cultures were negative. Chest x-ray also a repeated and showed no infiltrates. The patient's metabolic encephalopathy was deemed to be due to delirium and dehydration a CT of the head showed global atrophy otherwise no acute findings. MRI did not reveal any acute abnormality and ammonia level was normal. The patient's hyponatremia was corrected Aldactone was discontinued. Patient was seen by physical therapy and noted to be a high risk for falls. On the family opted for home with home health. Her diabetes mellitus was managed that she was seen by speech therapy for dysphagia evaluation, continue the mechanical soft. Patient clinically improved and stable for discharge to follow up with primary care physician outpatient Sepsis Ruled out * UA negative, blood cultures negative, chest x-ray was repeated 2, no infiltrates * Urine cx negative also, discontinue all abx UTI ruled out, negative urine cx Metabolic Encephalopathy * Etiology most likely due to delireum and dehydration, clinically improving, CT head does show global atrophy, but no acute findings, HIV screening negative , neurology consult appreciated * Continue stroke workup as outlined below, MRI does not show any acute abnormality, Ammonia level was normal * Frequent reorientation Delirium * Frequent reorientation, continue supportive care Hypernatremia/free water deficit/dehydration * continue IV fluids * dc aldactone CVA was ruled out, * CAT scan and MRI were negative, no gross focal deficits on exam Severe debility * PT consult appreciated, patient is very unsteady and a high risk for falls, discussed with case management * home with home PT Diabetes type 2, insulin-dependent, presented with Hypoglycemia * hemoglobin A1c was 7.5. She was hypoglycemic on arrival. It appears as he is clinically improved and she is eating more, her glucose levels have rebounded. Sliding scale management with addition of Levemir * Hypoglycemia Dysphasia * Speech therapy evaluation appreciated, continue mechanical soft diet with thin liquids ABHILASH upon Stage IV CKD, vasomotor nephropathy * Treated with IVF Hyperkalemia -received kayexalate, dc aldactone, now resolved , recommended outpatient repeat basic metabolic profile to evaluate potassium Hypertensive urgency * Optimized blood pressure medications * now improved Moderate Malnutrition * nutrition consult appreciated * continue nutritional supplements Disposition: TO HOME OR SELFCARE Time spent for discharge: 35 mins Core Measure Documentation - Palliative Care Palliative Care/ Comfort Measures: Not Applicable - Core Measures Any of the following diagnoses?: none - VTE Discharge Requirements Deep Vein Thrombosis/Pulmonary Embolism Present on Admission: No Exam - Physical Exam Narrative exam: VITAL SIGNS: Reviewed. GENERAL: The patient normally developed. Vital signs as documented. HEAD: No signs of head trauma. EYES: Pupils are equal. Extraocular motions intact. EARS: Hearing grossly intact. MOUTH: Oropharynx is normal. NECK: No adenopathy, no JVD. CHEST: Chest with clear breath sounds bilaterally. No wheezes, rales, or rhonchi. CARDIAC: Regular rate and rhythm. S1 and S2, without murmurs, gallops, or rubs. VASCULAR: No Edema. Peripheral pulses normal and equal in all extremities. ABDOMEN: Soft, without detectable tenderness. No sign of distention. No rebound or guarding, and no masses palpated. Bowel Sounds normal. MUSCULOSKELETAL: Good range of motion of all major joints. Extremities without clubbing, cyanosis or edema. NEUROLOGIC EXAM: Alert and oriented x 3. No focal sensory or strength deficits. Speech normal. Follows commands. PSYCHIATRIC: Mood normal. SKIN: No rash or lesions. - Constitutional Vitals: Temp Pulse Resp BP Pulse Ox 98.5 F 85 18 133/71 97 03/10/17 05:09 03/10/17 05:09 03/10/17 05:09 03/10/17 05:09 03/10/17 05:09 Plan Activity: advance as tolerated, fall precautions Diet: low fat, renal Special Instructions: record daily BP diary, physical therapy Follow up with: PRIMARY CARE, [Primary Care Provider] - 3-5 Days KARYN VERDUZCO MD [Staff Physician] - 7 Days TED LAGOS MD [Staff Physician] - 7 Days Prescriptions: cloNIDine [Catapres] 0.4 mg PO TID #90 tablet Insulin Glulisine [Apidra] 10 units SC DAILY 30 Days
[2017-03-10 09:50] VITALS: BP 140/68
[2017-03-10] MEDS: NORVASC PO SCH (09:59)
--- NOTE | 2017-03-10 11:32 | Progress Note ---
Subjective - Reason for Consult Consult date: 03/10/17 Reason for consult: Psychiatry Follow-up - Chief Complaint Chief complaint: "Hello there" 46 YO Female with HTN, CVA 2 in 2013 complicated by dysarthria and left hemiparesis, DM, GERD, Nicotine Dependence. Today patient is calm and cooperative during the assessment. There were no changes from previous assessment. Patient is ready to be discharge home with her daughter. She denies SI/HI's, AVH's, and depression symptoms. Per the staff, no behavioral disturbances overnight. Mental Status Exam - Vital signs Last Vital Signs Temp 98.7 F 03/10/17 08:16 Pulse 72 03/10/17 08:16 Resp 18 03/10/17 08:16 BP 140/68 03/10/17 08:16 Pulse Ox 98 03/10/17 08:16 - Exam Narrative exam: MSE: Appearance: calm, cooperative Behavior: regular eye contact Speech: dysarthria Mood: "not to bad" Affect: congruent to mood Thought Process: linear Thought Content: denies SI/HI's and AVH's Motor Activity: ambulatory Cognition: A/Ox 3 Insight: fair Judgment: fair Assessment and Plan Impression: Today patient was calm and cooperative during assessment. Patient pleasant and engaging. Medical: Metabolic Encephalopathy, but improving per Hospitalist note. Recommendation/Plan: Offered outpatient therapy because of medical comorbidities , she declined. She stated that she would consult with her PCP when she want to see a therapist. Psychiatry will sign off this patient, reconsult when indicated.
--- NOTE | 2017-03-11 10:54 | Vascular Lab Report ---
CAROTID DUPLEX STUDY: RIGHT PSVEDV CCA PROX:76 7 CCA DIST:[id number] ICA PROX:6314 ICA MID:7021 ICA DIST:6023 ECA: 140 VERT: 46 11 LEFT PSVEDV CCA PROX:9313 CCA DIST:6319 ICA PROX:7910 ICA MID:5216 ICA DIST:5916 ECA: 128 VERT: 52 12 REASON FOR EXAM: Stroke. COMMENTS ON THE RIGHT: Doppler frequency analysis is consistent with 16 to 49 percent diameter reduction of the internal carotid artery. Minimal amount of plaque is seen. The common carotid artery is patent. The external carotid artery is patent. The vertebral artery has antegrade flow. COMMENTS ON THE LEFT: Doppler frequency analysis is consistent with 16 to 49 percent diameter reduction of the internal carotid artery. Minimal amount of plaque is seen. The common carotid artery is patent. The external carotid artery is patent. The vertebral artery has antegrade flow. IMPRESSION: Less than 50% diameter reduction in the internal carotid arteries bilaterally. Consider repeat carotid artery duplex in 12 months.
== END 2017-03-10 16:40 | disposition home or self-care (01) | DRG 682 ==
LOC: ED 11:53 → 4A 19:36
PROVIDERS: ADMIT Internal Medicine; ATTEND Internal Medicine
PROC: 4A033R1 Measurement of Arterial Saturation, Peripheral, Percutaneous Approach (ICD-10-PCS; principal; 2017-03-04)
DX: N17.0 Acute kidney failure with tubular necrosis (principal); G93.41 Metabolic encephalopathy; E44.0 Moderate protein-calorie malnutrition; N18.4 Chronic kidney disease, stage 4 (severe); E87.0 Hyperosmolality and hypernatremia; I16.0 Hypertensive urgency; E87.5 Hyperkalemia; R47.02 Dysphasia; R53.81 Other malaise; E86.0 Dehydration; K21.9 Gastro-esophageal reflux disease without esophagitis; F17.200 Nicotine dependence, unspecified, uncomplicated; E11.649 Type 2 diabetes mellitus with hypoglycemia without coma; I12.9 Hypertensive chronic kidney disease with stage 1 through stage 4 chronic kidney disease, or unspecified chronic kidney disease; E11.22 Type 2 diabetes mellitus with diabetic chronic kidney disease; D64.9 Anemia, unspecified; E87.2 Acidosis; Z83.3 Family history of diabetes mellitus; Z68.26 Body mass index [BMI] 26.0-26.9, adult; Z82.49 Family history of ischemic heart disease and other diseases of the circulatory system; Z88.6 Allergy status to analgesic agent; I69.328 Other speech and language deficits following cerebral infarction; Z90.49 Acquired absence of other specified parts of digestive tract; I69.322 Dysarthria following cerebral infarction; I69.354 Hemiplegia and hemiparesis following cerebral infarction affecting left non-dominant side
CPT/HCPCS: 36415; 36600; 70450; 70544; 70551; 71010; 71020; 76770; 80048; 80053; 80061; 80074; 80202; 80307; 80320; 81001; 81025; 82088; 82140; 82570; 82803; 82962; 83036; 83690; 83930; 84156; 84300; 84484; 84550; 85025; 85027; 85379; 86021; 86038; 86334; 86850; 86900; 86901; 87040; 87086; 87535; 87806; 93005; 93010; 93306; 93880; 95819; 96365; 96372; 96375; A9270-GY; G0480; J0360; J0696; J1630; J1815; J1818; J2060; J2405; J2543; J3370; J7030; J7040; J7050

== ENCOUNTER 2017-03-19 17:59 | Inpatient (IN) | payer MEDICAID ==
--- NOTE | 2017-03-19 18:47 | Cat Scan Report ---
FINAL REPORT EXAM: CT HEAD/BRAIN WO CON HISTORY: neuro deficits \T\lt; 6hrs or sx present upon awakening TECHNIQUE: Standard unenhanced CT of the head at 5.0 millimeter axial increments PRIORS: CT head 03/03/2017 FINDINGS: The ventricular system is normal in size and configuration. There is no evidence for parenchymal volume loss. There are remote lacunar infarcts involving the basal ganglia bilaterally and the bilateral periventricular white matter. There also remote small infarct in the right alfred. There is no evidence for mass lesion, mass effect, midline shift, acute intracranial hemorrhage, or acute ischemia/ infarction. Visualized paranasal sinuses are clear. IMPRESSION: No acute intracranial process noted. No change.
[2017-03-19 19:34] LABS: Hematocrit 30.9 % (30.3-42.9); Hemoglobin 9.9 gm/dl (10.1-14.3); INR 0.94 (0.87-1.13); Mean Corpuscular HGB Conc 32 % (30-34); Mean Corpuscular Hemoglobin 27 pg (28-32); Mean Corpuscular Volume 85 fl (79-97); Platelet Count 223 K/mm3 (140-440); Red Blood Count 3.64 M/mm3 (3.65-5.03); Red Cell Distribution Width 13.9 % (13.2-15.2); White Blood Count 10.6 K/mm3 (4.5-11.0)
[2017-03-19 19:35] LABS: Partial Thromboplastin Time 37.1 Sec. (24.2-36.6)
[2017-03-19 19:46] LABS: BUN/Creatinine Ratio 7.02; Chloride 101.8 mmol/L (98-107); Potassium 4.9 mmol/L (3.6-5.0)
--- NOTE | 2017-03-19 21:01 | Emergency Department Report ---
ED Altered Mental Status HPI - General Chief Complaint: Altered Mental Status Stated Complaint: AMS Time Seen by Provider: 03/19/17 20:14 Source: EMS Mode of arrival: Stretcher Limitations: Altered Mental Status - History of Present Illness Initial Comments: 46-year-old female brought in by EMS with complaints of altered mental status. He has past medical history of CVA, with dysarthria and left sided hemiparesis. Family observed that she became altered at about 11 AM today. Patient not following commands. No reports of nausea vomiting or diarrhea, no fever.. Pt has hx of DM, HTN with stage IV chronic renal disease MD Complaint: altered mental status (unable to obtain history due to patient's present condition) - Related Data Home Medications Medication Instructions Recorded Confirmed Last Taken Amlodipine Besylate 10 mg PO DAILY 08/27/15 03/19/17 1 Day Ago AtorvaSTATin [Lipitor] 40 mg PO DAILY 08/27/15 03/19/17 1 Day Ago Gabapentin 300 mg PO TID 08/27/15 03/19/17 1 Day Ago HumaLOG VIAL 15 unit SQ TID 03/19/17 03/19/17 Unknown Metoclopramide 10 mg PO AC 03/19/17 03/19/17 Unknown Sodium Bicarbonate 650 mg PO BID 03/19/17 03/19/17 Unknown Previous Rx's Medication Instructions Recorded Last Taken Type cloNIDine [Catapres] 0.4 mg PO TID #90 tablet 03/10/17 Unknown Rx Allergies Allergy/AdvReac Type Severity Reaction Status Date / Time ibuprofen AdvReac Rash Verified 08/27/15 08:38 ED Review of Systems ROS: Stated complaint: AMS Other details as noted in HPI Comment: Unobtainable due to pts medical conditions (plan as dysarthria and not following commands) ED Past Medical Hx - Past Medical History Hx Hypertension: Yes Hx CVA: Yes (x 2 with residual speech deficits) Hx Diabetes: Yes Hx GERD: Yes Hx HIV: No - Surgical History Hx Cholecystectomy: Yes - Social History Smoking Status: Unknown if ever smoked - Medications Home Medications: Home Medications Medication Instructions Recorded Confirmed Last Taken Type Amlodipine Besylate 10 mg PO DAILY 08/27/15 03/19/17 1 Day Ago History AtorvaSTATin [Lipitor] 40 mg PO DAILY 08/27/15 03/19/17 1 Day Ago History Gabapentin 300 mg PO TID 08/27/15 03/19/17 1 Day Ago History cloNIDine [Catapres] 0.4 mg PO TID #90 tablet 03/10/17 03/19/17 Unknown Rx HumaLOG VIAL 15 unit SQ TID 03/19/17 03/19/17 Unknown History Metoclopramide 10 mg PO AC 03/19/17 03/19/17 Unknown History Sodium Bicarbonate 650 mg PO BID 03/19/17 03/19/17 Unknown History ED Physical Exam - General Limitations: Altered Mental Status General appearance: other (awake) - Head Head exam: Present: atraumatic, normocephalic, normal inspection - Eye Eye exam: Present: normal appearance, PERRL, EOMI, other (pallor). Absent: scleral icterus Pupils: Present: normal accommodation - ENT ENT exam: Present: normal exam, normal orophraynx, mucous membranes moist - Neck Neck exam: Present: normal inspection, full ROM. Absent: tenderness, meningismus, lymphadenopathy - Respiratory Respiratory exam: Present: normal lung sounds bilaterally. Absent: respiratory distress, wheezes, rales, rhonchi, chest wall tenderness - Cardiovascular Cardiovascular Exam: Present: regular rate, normal heart sounds. Absent: bradycardia, tachycardia - GI/Abdominal GI/Abdominal exam: Present: soft, normal bowel sounds. Absent: distended, tenderness, guarding, rebound, hyperactive bowel sounds, hypoactive bowel sounds - Rectal Rectal exam: Present: deferred - Extremities Exam Extremities exam: Present: other (left-sided hemiparesis) - Neurological Exam Neurological exam: Present: altered, other (unable to examine due to patient's dyarthria) ED Course Vital Signs 03/19/17 03/19/17 03/19/17 18:34 19:39 19:45 Temperature 98.2 F 98 F Pulse Rate 74 74 Respiratory 16 18 18 Rate Blood Pressure 129/74 131/74 [Left] O2 Sat by Pulse 100 100 100 Oximetry - Consultations Consultation #1: 03/19/17 22:01 I discussed patient with hospitalist, he accepts admission. - Lab Data Result diagrams: 03/19/17 18:52 03/19/17 20:59 Lab Results 03/19/17 03/19/17 03/19/17 Range/Units 18:52 18:52 18:52 WBC 10.6 (4.5-11.0) K/mm3 RBC 3.64 L (3.65-5.03) M/mm3 Hgb 9.9 L (10.1-14.3) gm/dl Hct 30.9 (30.3-42.9) % MCV 85 (79-97) fl MCH 27 L (28-32) pg MCHC 32 (30-34) % RDW 13.9 (13.2-15.2) % Plt Count 223 (140-440) K/mm3 Lymph % (Auto) Agile Test Lead Swain % (Auto) Agile Test Lead Eos % (Auto) Agile Test Lead Baso % (Auto) Agile Test Lead Lymph # Agile Test Lead Swain # Agile Test Lead Eos # Agile Test Lead Baso # Agile Test Lead Seg Neutrophils % Agile Test Lead Seg Neutrophils # Agile Test Lead PT 13.0 (12.2-14.9) Sec. INR 0.94 (0.87-1.13) APTT 37.1 H (24.2-36.6) Sec. Thrombin Time (15.1-19.6) Sec. Sodium 138 (137-145) mmol/L Potassium 4.9 (3.6-5.0) mmol/L Chloride 101.8 (98-107) mmol/L Carbon Dioxide 20 L (22-30) mmol/L Anion Gap 21 mmol/L BUN 26 H (7-17) mg/dL Creatinine 3.7 H (0.7-1.2) mg/dL Estimated GFR 16 ml/min BUN/Creatinine Ratio 7.02 % Glucose 175 H (65-100) mg/dL Lactic Acid (0.7-2.0) mmol/L Calcium 9.0 (8.4-10.2) mg/dL Total Bilirubin (0.1-1.2) mg/dL AST (5-40) units/L ALT (7-56) units/L Alkaline Phosphatase (35-129) units/L Ammonia (25-60) umol/L Total Creatine Kinase (30-135) units/L Troponin T 0.047 H (0.00-0.029) ng/mL Total Protein (6.3-8.2) g/dL Albumin (3.9-5) g/dL Albumin/Globulin Ratio % Triglycerides 170 H (2-149) mg/dL Cholesterol 165 (50-199) mg/dL LDL Cholesterol Direct 82 (50-130) mg/dL HDL Cholesterol 49 (40-59) mg/dL Cholesterol/HDL Ratio 3.36 % Urine Color (Yellow) Urine Turbidity (Clear) Urine pH (5.0-7.0) Ur Specific Starlight (1.003-1.030) Urine Protein (Negative) mg/dL Urine Glucose (UA) (Negative) mg/dL Urine Ketones (Negative) mg/dL Urine Blood (Negative) Urine Nitrite (Negative) Urine Bilirubin (Negative) Urine Urobilinogen (<2.0) mg/dL Ur Leukocyte Esterase (Negative) Urine WBC (Auto) (0.0-6.0) /HPF Urine RBC (Auto) (0.0-6.0) /HPF U Epithel Cells (Auto) (0-13.0) /HPF Amorphous Crystals 03/19/17 03/19/17 03/19/17 Range/Units 18:52 20:59 20:59 WBC (4.5-11.0) K/mm3 RBC (3.65-5.03) M/mm3 Hgb (10.1-14.3) gm/dl Hct (30.3-42.9) % MCV (79-97) fl MCH (28-32) pg MCHC (30-34) % RDW (13.2-15.2) % Plt Count (140-440) K/mm3 Lymph % (Auto) Swain % (Auto) Eos % (Auto) Baso % (Auto) Lymph # Swain # Eos # Baso # Seg Neutrophils % Seg Neutrophils # PT 13.2 (12.2-14.9) Sec. INR 0.95 (0.87-1.13) APTT 38.9 H (24.2-36.6) Sec. Thrombin Time 17.4 (15.1-19.6) Sec. Sodium 141 (137-145) mmol/L Potassium 5.0 (3.6-5.0) mmol/L Chloride 103.8 (98-107) mmol/L Carbon Dioxide 23 (22-30) mmol/L Anion Gap 19 mmol/L BUN 28 H (7-17) mg/dL Creatinine 3.6 H (0.7-1.2) mg/dL Estimated GFR 17 ml/min BUN/Creatinine Ratio 7.77 % Glucose 190 H (65-100) mg/dL Lactic Acid (0.7-2.0) mmol/L Calcium 9.0 (8.4-10.2) mg/dL Total Bilirubin 0.20 (0.1-1.2) mg/dL AST 11 (5-40) units/L ALT 11 (7-56) units/L Alkaline Phosphatase 96 (35-129) units/L Ammonia (25-60) umol/L Total Creatine Kinase 91 (30-135) units/L Troponin T 0.046 H (0.00-0.029) ng/mL Total Protein 6.4 (6.3-8.2) g/dL Albumin 3.2 L (3.9-5) g/dL Albumin/Globulin Ratio 1.0 % Triglycerides (2-149) mg/dL Cholesterol (50-199) mg/dL LDL Cholesterol Direct (50-130) mg/dL HDL Cholesterol (40-59) mg/dL Cholesterol/HDL Ratio % Urine Color (Yellow) Urine Turbidity (Clear) Urine pH (5.0-7.0) Ur Specific Starlight (1.003-1.030) Urine Protein (Negative) mg/dL Urine Glucose (UA) (Negative) mg/dL Urine Ketones (Negative) mg/dL Urine Blood (Negative) Urine Nitrite (Negative) Urine Bilirubin (Negative) Urine Urobilinogen (<2.0) mg/dL Ur Leukocyte Esterase (Negative) Urine WBC (Auto) (0.0-6.0) /HPF Urine RBC (Auto) (0.0-6.0) /HPF U Epithel Cells (Auto) (0-13.0) /HPF Amorphous Crystals 03/19/17 03/19/17 03/19/17 Range/Units 20:59 20:59 Unknown WBC (4.5-11.0) K/mm3 RBC (3.65-5.03) M/mm3 Hgb (10.1-14.3) gm/dl Hct (30.3-42.9) % MCV (79-97) fl MCH (28-32) pg MCHC (30-34) % RDW (13.2-15.2) % Plt Count (140-440) K/mm3 Lymph % (Auto) Swain % (Auto) Eos % (Auto) Baso % (Auto) Lymph # Swain # Eos # Baso # Seg Neutrophils % Seg Neutrophils # PT (12.2-14.9) Sec. INR (0.87-1.13) APTT (24.2-36.6) Sec. Thrombin Time (15.1-19.6) Sec. Sodium (137-145) mmol/L Potassium (3.6-5.0) mmol/L Chloride (98-107) mmol/L Carbon Dioxide (22-30) mmol/L Anion Gap mmol/L BUN (7-17) mg/dL Creatinine (0.7-1.2) mg/dL Estimated GFR ml/min BUN/Creatinine Ratio % Glucose (65-100) mg/dL Lactic Acid 0.50 L (0.7-2.0) mmol/L Calcium (8.4-10.2) mg/dL Total Bilirubin (0.1-1.2) mg/dL AST (5-40) units/L ALT (7-56) units/L Alkaline Phosphatase (35-129) units/L Ammonia 27.0 (25-60) umol/L Total Creatine Kinase (30-135) units/L Troponin T (0.00-0.029) ng/mL Total Protein (6.3-8.2) g/dL Albumin (3.9-5) g/dL Albumin/Globulin Ratio % Triglycerides (2-149) mg/dL Cholesterol (50-199) mg/dL LDL Cholesterol Direct (50-130) mg/dL HDL Cholesterol (40-59) mg/dL Cholesterol/HDL Ratio % Urine Color Yellow (Yellow) Urine Turbidity Clear (Clear) Urine pH 6.0 (5.0-7.0) Ur Specific Starlight 1.010 (1.003-1.030) Urine Protein >500 (Negative) mg/dL Urine Glucose (UA) 50 (Negative) mg/dL Urine Ketones Neg (Negative) mg/dL Urine Blood Neg (Negative) Urine Nitrite Neg (Negative) Urine Bilirubin Neg (Negative) Urine Urobilinogen < 2.0 (<2.0) mg/dL Ur Leukocyte Esterase Tr (Negative) Urine WBC (Auto) 4.0 (0.0-6.0) /HPF Urine RBC (Auto) 3.0 (0.0-6.0) /HPF U Epithel Cells (Auto) < 1.0 (0-13.0) /HPF Amorphous Crystals Few - EKG Data -: EKG Interpreted by Me 03/19/17 22:02 Normal sinus rhythm, rate of 72 bpm, normal axis, nonspecific ST changes in V2 and V3 and V4, normal intervals. T-wave inversion in aVL L Critical Care Time: No Critical care attestation.: If time is entered above; I have spent that time in minutes in the direct care of this critically ill patient, excluding procedure time. ED Disposition Clinical Impression: Altered mental status, unspecified Disposition: -09 OP ADMIT IP TO THIS HOSP Is pt being admited?: Yes Does the pt Need Aspirin: Yes Condition: Stable Referrals: PRIMARY CARE, [Primary Care Provider] - 3-5 Days Time of Disposition: 22:03
[2017-03-19 21:47] LABS: Albumin 3.2 g/dL (3.9-5); BUN/Creatinine Ratio 7.77; Bilirubin,Total 0.2 mg/dL (0.1-1.2); Chloride 103.8 mmol/L (98-107); Total Protein 6.4 g/dL (6.3-8.2)
[2017-03-19 21:50] LABS: INR 0.95 (0.87-1.13)
[2017-03-19 21:51] LABS: Partial Thromboplastin Time 38.9 Sec. (24.2-36.6)
[2017-03-19 21:56] LABS: Bilirubin,Urine NEG (Negative); Blood,Urine NEG (Negative); Ketones,Urine NEG (Negative); Leukocyte Esterase,Urine TR (Negative); Nitrite,Urine NEG (Negative); Protein,Urine >500 mg/dL (Negative); Urobilinogen,Urine < 2.0 mg/dL (<2.0)
[2017-03-19] MEDS ORDERED: DULCOLAX PR PRN (22:27)
[2017-03-19] MEDS ORDERED: ZOFRAN IV PRN (22:27)
[2017-03-19] MEDS ORDERED: MORPHINE IV PRN (22:27)
[2017-03-19] MEDS ORDERED: TYLENOL PO PRN (22:27)
--- NOTE | 2017-03-19 22:30 | History and Physical Report ---
History of Present Illness Date of examination: 03/19/17 Date of admission: 03/19/17 Chief complaint: Altered mental status History of present illness: Patient is 46-year-old with history of stroke with residual dysarthria and residual left hemiparesis weakness, diabetes, hypertension and stage IV chronic kidney disease. She was brought in by family because of altered mental status. Patient cannot give a history because of severe dysarthria. There is no family member present currently. Most history obtained fom ED Physician and medical records. Apparently patient has been more confused than her baseline. She denies any chest pain or shortness of breath. CT head done in the department CT had did not show any acute stroke. Also of significance, she was admitted in the hospital 03/03/17 to 03/10/2017 for similar presentation with altered mental status and discharge diagnoses was metabolic encephalopathy. will admit for further evaluation. Past History Past Medical History: diabetes, GERD, hypertension, stroke (with residual dysarthria), other (metabolic encephalopathy, dehydration, delirium) Past Surgical History: No surgical history Social history: single, lives with family. denies: smoking, alcohol abuse Family history: diabetes, hypertension Medications and Allergies Allergies Allergy/AdvReac Type Severity Reaction Status Date / Time ibuprofen AdvReac Rash Verified 08/27/15 08:38 Home Medications Medication Instructions Recorded Confirmed Last Taken Type Amlodipine Besylate 10 mg PO DAILY 08/27/15 03/19/17 1 Day Ago History AtorvaSTATin [Lipitor] 40 mg PO DAILY 08/27/15 03/19/17 1 Day Ago History Gabapentin 300 mg PO TID 08/27/15 03/19/17 1 Day Ago History cloNIDine [Catapres] 0.4 mg PO TID #90 tablet 03/10/17 03/19/17 Unknown Rx HumaLOG VIAL 15 unit SQ TID 03/19/17 03/19/17 Unknown History Metoclopramide 10 mg PO AC 03/19/17 03/19/17 Unknown History Sodium Bicarbonate 650 mg PO BID 03/19/17 03/19/17 Unknown History Review of Systems ROS unobtainable: due to mental status Exam - Physical Exam Narrative exam: Gen Appearance: Not in acute distress HEENT: normocephalic, atraumatic Neck: supple, no JVD Lungs: Clear to auscultation, bilaterally, no rales, no wheeze Heart: S1 and S2 regular, no murmurs, rubs or gallop Abdomen: Soft , non tender, non distended, normal bowel sounds Extremity: No edema, no clubbing or cyanosis, bruises Neuro : Awake, alert, dysarthria, residual left sided weakness - Constitutional Vitals: Temp Pulse Resp BP Pulse Ox 98 F 74 18 131/74 100 03/19/17 19:45 03/19/17 19:45 03/19/17 19:45 03/19/17 19:45 03/19/17 19:45 Results - Labs CBC & Chem 7: 03/19/17 18:52 03/19/17 20:59 Labs: Abnormal lab results 03/19/17 03/19/17 03/19/17 Range/Units 18:52 18:52 18:52 RBC 3.64 L (3.65-5.03) M/mm3 Hgb 9.9 L (10.1-14.3) gm/dl MCH 27 L (28-32) pg APTT 37.1 H (24.2-36.6) Sec. Carbon Dioxide 20 L (22-30) mmol/L BUN 26 H (7-17) mg/dL Creatinine 3.7 H (0.7-1.2) mg/dL Glucose 175 H (65-100) mg/dL Lactic Acid (0.7-2.0) mmol/L Troponin T 0.047 H (0.00-0.029) ng/mL Albumin (3.9-5) g/dL Triglycerides 170 H (2-149) mg/dL 03/19/17 03/19/17 03/19/17 Range/Units 20:59 20:59 20:59 RBC (3.65-5.03) M/mm3 Hgb (10.1-14.3) gm/dl MCH (28-32) pg APTT 38.9 H (24.2-36.6) Sec. Carbon Dioxide (22-30) mmol/L BUN 28 H (7-17) mg/dL Creatinine 3.6 H (0.7-1.2) mg/dL Glucose 190 H (65-100) mg/dL Lactic Acid 0.50 L (0.7-2.0) mmol/L Troponin T 0.046 H (0.00-0.029) ng/mL Albumin 3.2 L (3.9-5) g/dL Triglycerides (2-149) mg/dL Assessment and Plan Acute encephalopathy with altered mental status. Will admit to telemetry. Neuro checks every [address] head was unremarkable. She was admitted with similar presentation 03/03 -03/10/17. At that time CT Head was also unremarkable and MRI brain was also negative. Chronic kidney disease stage IV. Consult nephrology, Dr. Major Hypertension. Monitor BP. Resume Norvasc. Resume Clonidine at lower dose since BP is low normal . Diabetes mellitus type II. Fingerstick glucose every 6 hours and at bedtime. Use sliding scale DVT prophylaxis with heparin subcutanously Full CODE STATUS
[2017-03-20] MEDS ORDERED: D50W (25GM) Syringe IV PRN (01:32)
[2017-03-20] MEDS ORDERED: NORVASC PO SCH (02:00)
[2017-03-20] MEDS: NORVASC PO SCH (02:06)
[2017-03-20 06:04] LABS: Basophils % (Auto) 0.8 % (0.0-1.8); Eosinophils % (Auto) 1.4 % (0.0-4.3); Hematocrit 31.3 % (30.3-42.9); Hemoglobin 10.1 gm/dl (10.1-14.3); Mean Corpuscular HGB Conc 32 % (30-34); Mean Corpuscular Hemoglobin 27 pg (28-32); Mean Corpuscular Volume 85 fl (79-97); Platelet Count 210 K/mm3 (140-440); Red Blood Count 3.69 M/mm3 (3.65-5.03); Red Cell Distribution Width 14.2 % (13.2-15.2); White Blood Count 10.1 K/mm3 (4.5-11.0)
[2017-03-20 06:36] LABS: Anion Gap 23 mmol/L; BUN/Creatinine Ratio 7.22; Blood Urea Nitrogen 26 mg/dL (7-17); Calcium 9.1 mg/dL (8.4-10.2); Carbon Dioxide 19 mmol/L (22-30); Chloride 100.6 mmol/L (98-107); Glucose 170 mg/dL (65-100); Potassium 4.7 mmol/L (3.6-5.0); Sodium 138 mmol/L (137-145)
[2017-03-20] MEDS ORDERED: NON-FORMULARY (Metoclopramide 10 MG) PO SCH (07:30)
[2017-03-20] MEDS: NOVOLOG SUB-Q SCH ×3 (09:45→17:36)
[2017-03-20] MEDS ORDERED: NON-FORMULARY (Sodium Bicarbonate 650 MG) PO SCH (10:00)
[2017-03-20] MEDS ORDERED: Fluarix Quad 2017-2018(36 MOS+) IM ONE (12:00)
--- NOTE | 2017-03-20 13:44 | Progress Note ---
Assessment and Plan Assessment and plan: Patient is a 46 yo woman with htn, dm, htn, ckd stage 4, h/o stroke with left hemiparesis and dysarthria who presented to -Acute encephalopathy with altered mental status. Will admit to telemetry. Neuro checks every [address] head was unremarkable. She was admitted with similar presentation 03/03 -03/10/17. At that time CT Head was also unremarkable and MRI brain was also negative. -Acute on Chronic kidney disease stage IV, vasomotor nephropathy, poa. Consult nephrology, Dr. Major -Hypertension. Monitor BP. Resume Norvasc. Resume Clonidine at lower dose since BP is low normal . -Diabetes mellitus type II. Fingerstick glucose every 6 hours and at bedtime. Use sliding scale -DVT prophylaxis with heparin subcutaneously Full CODE STATUS History Interval history: Patient was seen and examined. Follow-up on current diagnosis/ams that still present. Overnight uneventful. Imaging, nursing note, chart, labs and old chart reviewed. Discussed with patient. Hospitalist Physical - Physical exam Narrative exam: GEN: WDWN, NAD, AWAKE, ALERT, ORIENTATED x 1 HEENT: NCAT, EOMI, PERRL, OP Clear NECK: supple, no adenopathy, no thyromegaly, no JVD CVS/HEART: RRR, NORMAL S1S2, NO JVD, pulses present bilaterally CHEST/LUNGS: CTA B, Symmetrical chest expansion, good air entry bilaterally GI/Abdomen: soft, NTND, good bowel sounds, no guarding or rebound /Bladder: no suprapubic tenderness, no CVA or paraspinal tenderness EXT/Skin: no c/c/e, no significant edema or obvious rash MSK: left hemiparesis Neuro: CN 2-12 grossly intact, no new focal deficits Psych: calm - Constitutional Vitals: Temp Pulse Resp BP Pulse Ox 97.5 F L 88 20 136/83 96 03/20/17 06:00 03/20/17 06:00 03/20/17 06:00 03/20/17 06:00 03/20/17 06:00 Results - Labs CBC & Chem 7: 03/20/17 05:28 03/20/17 05:28 Labs: Laboratory Last Values WBC 10.1 K/mm3 (4.5-11.0) 03/20/17 05:28 RBC 3.69 M/mm3 (3.65-5.03) 03/20/17 05:28 Hgb 10.1 gm/dl (10.1-14.3) 03/20/17 05:28 Hct 31.3 % (30.3-42.9) 03/20/17 05:28 MCV 85 fl (79-97) 03/20/17 05:28 MCH 27 pg (28-32) L 03/20/17 05:28 MCHC 32 % (30-34) 03/20/17 05:28 RDW 14.2 % (13.2-15.2) 03/20/17 05:28 Plt Count 210 K/mm3 (140-440) 03/20/17 05:28 Lymph % (Auto) 19.4 % (13.4-35.0) 03/20/17 05:28 Walton % (Auto) 6.5 % (0.0-7.3) 03/20/17 05:28 Eos % (Auto) 1.4 % (0.0-4.3) 03/20/17 05:28 Baso % (Auto) 0.8 % (0.0-1.8) 03/20/17 05:28 Lymph # 2.0 K/mm3 (1.2-5.4) 03/20/17 05:28 Walton # 0.7 K/mm3 (0.0-0.8) 03/20/17 05:28 Eos # 0.1 K/mm3 (0.0-0.4) 03/20/17 05:28 Baso # 0.1 K/mm3 (0.0-0.1) 03/20/17 05:28 Seg Neutrophils % 71.9 % (40.0-70.0) H 03/20/17 05:28 Seg Neutrophils # 7.3 K/mm3 (1.8-7.7) 03/20/17 05:28 PT 13.2 Sec. (12.2-14.9) 03/19/17 20:59 INR 0.95 (0.87-1.13) 03/19/17 20:59 APTT 38.9 Sec. (24.2-36.6) H 03/19/17 20:59 Thrombin Time 17.4 Sec. (15.1-19.6) 03/19/17 18:52 Sodium 138 mmol/L (137-145) 03/20/17 05:28 Potassium 4.7 mmol/L (3.6-5.0) 03/20/17 05:28 Chloride 100.6 mmol/L (98-107) 03/20/17 05:28 Carbon Dioxide 19 mmol/L (22-30) L 03/20/17 05:28 Anion Gap 23 mmol/L 03/20/17 05:28 BUN 26 mg/dL (7-17) H 03/20/17 05:28 Creatinine 3.6 mg/dL (0.7-1.2) H 03/20/17 05:28 Estimated GFR 17 ml/min 03/20/17 05:28 BUN/Creatinine Ratio 7.22 % 03/20/17 05:28 Glucose 170 mg/dL (65-100) H 03/20/17 05:28 POC Glucose 230 (70-105) H 03/20/17 08:13 Lactic Acid 0.50 mmol/L (0.7-2.0) L 03/19/17 20:59 Calcium 9.1 mg/dL (8.4-10.2) 03/20/17 05:28 Total Bilirubin 0.20 mg/dL (0.1-1.2) 03/19/17 20:59 AST 11 units/L (5-40) 03/19/17 20:59 ALT 11 units/L (7-56) 03/19/17 20:59 Alkaline Phosphatase 96 units/L (35-129) 03/19/17 20:59 Ammonia 27.0 umol/L (25-60) 03/19/17 20:59 Total Creatine Kinase 91 units/L (30-135) 03/19/17 20:59 Troponin T 0.046 ng/mL (0.00-0.029) H 03/19/17 20:59 Total Protein 6.4 g/dL (6.3-8.2) 03/19/17 20:59 Albumin 3.2 g/dL (3.9-5) L 03/19/17 20:59 Albumin/Globulin Ratio 1.0 % 03/19/17 20:59 Triglycerides 170 mg/dL (2-149) H 03/19/17 18:52 Cholesterol 165 mg/dL (50-199) 03/19/17 18:52 LDL Cholesterol Direct 82 mg/dL (50-130) 03/19/17 18:52 HDL Cholesterol 49 mg/dL (40-59) 03/19/17 18:52 Cholesterol/HDL Ratio 3.36 % 03/19/17 18:52 Urine Color Yellow (Yellow) 03/19/17 Unknown Urine Turbidity Clear (Clear) 03/19/17 Unknown Urine pH 6.0 (5.0-7.0) 03/19/17 Unknown Ur Specific Ceres 1.010 (1.003-1.030) 03/19/17 Unknown Urine Protein >500 mg/dL (Negative) 03/19/17 Unknown Urine Glucose (UA) 50 mg/dL (Negative) 03/19/17 Unknown Urine Ketones Neg mg/dL (Negative) 03/19/17 Unknown Urine Blood Neg (Negative) 03/19/17 Unknown Urine Nitrite Neg (Negative) 03/19/17 Unknown Urine Bilirubin Neg (Negative) 03/19/17 Unknown Urine Urobilinogen < 2.0 mg/dL (<2.0) 03/19/17 Unknown Ur Leukocyte Esterase Tr (Negative) 03/19/17 Unknown Urine WBC (Auto) 4.0 /HPF (0.0-6.0) 03/19/17 Unknown Urine RBC (Auto) 3.0 /HPF (0.0-6.0) 03/19/17 Unknown U Epithel Cells (Auto) < 1.0 /HPF (0-13.0) 03/19/17 Unknown Amorphous Crystals Few 03/19/17 Unknown
[2017-03-20] MEDS: REGLAN PO SCH ×2 (13:46→17:36)
[2017-03-20] MEDS: CATAPRES PO SCH ×2 (13:46→22:50)
[2017-03-20] MEDS: NEURONTIN PO SCH ×3 (13:46→21:20)
[2017-03-20] MEDS: SODIUM BICARBONATE PO SCH ×2 (13:47→22:50)
--- NOTE | 2017-03-20 13:59 | Consultation ---
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 initial CT head showed no acute findings. Patient was found to have abnormal kidney function with BUN/Cr at 26/3.7mg/dl, for which renal consult is requested. Based on chart review, renal function is marginally better than compared to recent hospitalization when BUN/Cr peaked at 53/4.8mg/dl on 03/08/17. Pt is poor historian due to underlying dysarthria, history obtained by chart review and family at bedside. Pt denies fever, chills, nausea, vomiting, headaches, dizziness, CP, SOB, BARTON, dysuria, diarrhea, abd pain. As per family, patient's insulin regimen was recently changed due to insurance issues. No recent NSAIDs use or IV contrast exposure reported. CKD diagnosed more than 2-3 years ago. Recent Renal US showed echogenic kidneys on 03/03/17. Past History Past Medical History: diabetes, GERD, hypertension, stroke (with residual dysarthria), other (metabolic encephalopathy, dehydration, delirium) Past Surgical History: No surgical history Social history: single, lives with family. denies: smoking, alcohol abuse Family history: diabetes, hypertension Medications and Allergies Allergies Allergy/AdvReac Type Severity Reaction Status Date / Time ibuprofen AdvReac Rash Verified 08/27/15 08:38 Home Medications Medication Instructions Recorded Confirmed Last Taken Type Amlodipine Besylate 10 mg PO DAILY 08/27/15 03/19/17 1 Day Ago History AtorvaSTATin [Lipitor] 40 mg PO DAILY 08/27/15 03/19/17 1 Day Ago History Gabapentin 300 mg PO TID 08/27/15 03/19/17 1 Day Ago History cloNIDine [Catapres] 0.4 mg PO TID #90 tablet 03/10/17 03/19/17 Unknown Rx HumaLOG VIAL 15 unit SQ TID 03/19/17 03/19/17 Unknown History Metoclopramide 10 mg PO AC 03/19/17 03/19/17 Unknown History Sodium Bicarbonate 650 mg PO BID 03/19/17 03/19/17 Unknown History Active Meds: Active Medications Acetaminophen (Tylenol) 650 mg PO Q4H PRN PRN Reason: Pain MILD(1-3)/Fever >100.5/LEE Amlodipine Besylate (Norvasc) 10 mg PO DAILY [facility] Last Admin: 03/20/17 02:06 Dose: Not Given Atorvastatin Calcium (Lipitor) 40 mg PO DAILY [facility] Last Admin: 03/20/17 13:47 Dose: Not Given Bisacodyl (Dulcolax) 10 mg WI QDAY PRN PRN Reason: Constipation unrelieved by MOM Clonidine HCl (Catapres) 0.2 mg PO Q12HR [facility] Last Admin: 03/20/17 13:46 Dose: Not Given Dextrose (D50w (25gm) Syringe) 50 ml IV PRN PRN PRN Reason: Hypoglycemia Gabapentin (Neurontin) 300 mg PO TID [facility] Last Admin: 03/20/17 13:46 Dose: Not Given Heparin Sodium (Porcine) (Heparin) 5,000 unit SUB-Q Q12HR [facility] Insulin Aspart (Novolog) 0 units SUB-Q [facility] PRN Reason: Protocol Last Admin: 03/20/17 13:47 Dose: Not Given Insulin Aspart (Novolog) 0 units SUB-Q QHS [facility] PRN Reason: Protocol Metoclopramide HCl (Reglan) 10 mg PO AC [facility] Last Admin: 03/20/17 13:46 Dose: Not Given Morphine Sulfate (Morphine) 2 mg IV Q4H PRN PRN Reason: Pain, Moderate (4-6) Ondansetron HCl (Zofran) 4 mg IV Q6H PRN PRN Reason: nausea or vomiting Sodium Bicarbonate (Sodium Bicarbonate) 650 mg PO BID [facility] Last Admin: 03/20/17 13:47 Dose: Not Given Review of Systems All systems: negative Constitutional: weakness Neurological: paralysis, weakness, change in speech Exam - Vital Signs Vital signs: Vital Signs Temp Pulse Resp BP Pulse Ox 98.2 F 74 16 129/74 100 03/19/17 18:34 03/19/17 18:34 03/19/17 18:34 03/19/17 18:34 03/19/17 18:34 - General Appearance General appearance: well-developed, well-nourished, appears stated age EENT: ATNC, PERRL, mucous membranes moist Neck: Present: neck supple Respiratory: Clear to Ascultation Heart: regular, S1S2 Gastrointestinal: Present: normoactive bowel sounds Integumentary: no rash, other (no edema ) Neurologic: no focal deficit, alert and oriented x3, CN 3-12 intact Psychiatric: mood/affect appropriate, cooperative Results - Lab Results 03/20/17 05:28 03/20/17 05:28 Most recent lab results Calcium 9.1 mg/dL (8.4-10.2) 03/20/17 05:28 Laboratory Tests 03/05/17 03/05/17 03/05/17 21:27 21:27 21:27 Hemoglobin A1c Troponin T Total Protein Albumin Albumin/Globulin Ratio Triglycerides Cholesterol LDL Cholesterol Direct HDL Cholesterol Cholesterol/HDL Ratio Renin Aldosterone Aldosterone/Renin Dir Urine Color Urine Turbidity Urine pH Ur Specific [place] Urine Protein Urine Glucose (UA) Urine Ketones Urine Blood Urine Nitrite Urine Bilirubin Urine Urobilinogen Ur Leukocyte Esterase Urine WBC (Auto) Urine RBC (Auto) U Epithel Cells (Auto) Amorphous Crystals Urine Creatinine Urine Sodium Urine Total Protein Immunofix Electrophor see below XENA Screen Negative Proteinase 3 (PR3) Ab <1.0 Myeloperoxidase Ab <1.0 03/05/17 03/07/17 03/07/17 22:20 00:11 09:40 Hemoglobin A1c 7.5 H Troponin T Total Protein Albumin Albumin/Globulin Ratio Triglycerides Cholesterol LDL Cholesterol Direct HDL Cholesterol Cholesterol/HDL Ratio Renin 4.10 Aldosterone 3 Aldosterone/Renin Dir 0.7 L Urine Color Urine Turbidity Urine pH Ur Specific [place] Urine Protein Urine Glucose (UA) Urine Ketones Urine Blood Urine Nitrite Urine Bilirubin Urine Urobilinogen Ur Leukocyte Esterase Urine WBC (Auto) Urine RBC (Auto) U Epithel Cells (Auto) Amorphous Crystals Urine Creatinine 95.7 H Urine Sodium 119 Urine Total Protein 565 H Immunofix Electrophor XENA Screen Proteinase 3 (PR3) Ab Myeloperoxidase Ab 03/19/17 03/19/17 03/19/17 18:52 20:59 Unknown Hemoglobin A1c Troponin T 0.047 H 0.046 H Total Protein 6.4 Albumin 3.2 L Albumin/Globulin Ratio 1.0 Triglycerides 170 H Cholesterol 165 LDL Cholesterol Direct 82 HDL Cholesterol 49 Cholesterol/HDL Ratio 3.36 Renin Aldosterone Aldosterone/Renin Dir Urine Color Yellow Urine Turbidity Clear Urine pH 6.0 Ur Specific [place] 1.010 Urine Protein >500 Urine Glucose (UA) 50 Urine Ketones Neg Urine Blood Neg Urine Nitrite Neg Urine Bilirubin Neg Urine Urobilinogen < 2.0 Ur Leukocyte Esterase Tr Urine WBC (Auto) 4.0 Urine RBC (Auto) 3.0 U Epithel Cells (Auto) < 1.0 Amorphous Crystals Few Urine Creatinine Urine Sodium Urine Total Protein Immunofix Electrophor XENA Screen Proteinase 3 (PR3) Ab Myeloperoxidase Ab Assessment and Plan - Patient Problems (1) Altered mental status, unspecified Current Visit: Yes Status: Acute Qualifiers: Altered mental status type: A Coma depth: C Coma timing: C Plan to address problem: unclear etiology at present, doubt acute uremic encephalopathy given stable renal function at her baseline. (2) Chronic kidney disease, stage IV (severe) Current Visit: Yes Status: Acute Plan to address problem: given significant proteinuria with uncontrolled DM, suspect diabetic nephropathy as cause of CKD. last protein/cr ratio was >5g/g, renal US from 03/03 showed echogenic kidneys b/l c/w CKD. Recommend supportive care for CKD, avoid nephrotoxins, NSAID, IV contrast. cont na bicarb for correction of metabolic acidosis. no acute indication for renal replacement therapy at present. Will monitor lytes/renal parameters and make further recommendations. (3) Type 2 diabetes mellitus with diabetic chronic kidney disease Current Visit: Yes Status: Chronic Qualifiers: Diabetes mellitus terminal operator insulin use: with terminal operator use Chronic kidney disease stage: stage 4 (severe) Qualified Code(s): E11.22 - Type 2 diabetes mellitus with diabetic chronic kidney disease; N18.4 - Chronic kidney disease, stage 4 (severe); Z79.4 - [facility] (current) use of insulin Plan to address problem: cont glucose control as per primary attending. (4) Hypertensive chronic kidney disease with stage 1 through stage 4 chronic kidney disease, or unspecified chronic kidney disease Current Visit: Yes Status: Acute Plan to address problem: BP currently well controlled. will monitor on current meds (5) Proteinuria Current Visit: Yes Status: Acute Qualifiers: Proteinuria type: P Isolated proteinuria type: I Trimester: T Plan to address problem: likely due to underlying diabetic nephropathy, TEODORO-I/ARB contraindicated due to advanced CKD. (6) Metabolic acidosis Current Visit: Yes Status: Acute Plan to address problem: cont Na bicarb
[2017-03-20] MEDS: HEPARIN SUB-Q SCH ×2 (17:35→22:50)
[2017-03-20] MEDS ORDERED: NOVOLOG SUB-Q SCH (22:00)
[2017-03-21 08:04] LABS: Hematocrit 26.7 % (30.3-42.9); Hemoglobin 8.8 gm/dl (10.1-14.3); Mean Corpuscular HGB Conc 33 % (30-34); Mean Corpuscular Hemoglobin 28 pg (28-32); Mean Corpuscular Volume 84 fl (79-97); Platelet Count 217 K/mm3 (140-440); Red Blood Count 3.18 M/mm3 (3.65-5.03); Red Cell Distribution Width 14.3 % (13.2-15.2); White Blood Count 8.1 K/mm3 (4.5-11.0)
[2017-03-21 08:23] LABS: BUN/Creatinine Ratio 7.35; Calcium 8.8 mg/dL (8.4-10.2); Chloride 105.9 mmol/L (98-107); Potassium 4.9 mmol/L (3.6-5.0)
[2017-03-21] MEDS: NOVOLOG SUB-Q SCH (10:59)
[2017-03-21] MEDS: CATAPRES PO SCH (11:00)
[2017-03-21] MEDS: REGLAN PO SCH (11:00)
[2017-03-21] MEDS: NORVASC PO SCH (11:00)
[2017-03-21] MEDS: NEURONTIN PO SCH (11:00)
[2017-03-21] MEDS: SODIUM BICARBONATE PO SCH (11:01)
[2017-03-21] MEDS: HEPARIN SUB-Q SCH (11:01)
--- NOTE | 2017-03-21 12:59 | Discharge Summary ---
Providers - Providers Date of Admission: 03/19/17 22:27 Date of discharge: 03/21/17 Attending physician: PRATEEK CHRISTIANSON 03/19/17 22:31 Consult to Physician [CONS] Routine Consulting Provider: NATASHA MAJOR Reason For Exam: chronic kidney disease Place consult to:: wanda Notified:: lina Phone number called:: [phone] Was contact made?: No Time called:: 09:30 Comment:: a service not working made several attempts / put on dr list Primary care physician: TEST PILOT Hospitalization Condition: Stable Hospital course: Patient is a 46 yo woman with htn, dm, htn, ckd stage 4, h/o stroke with left hemiparesis and dysarthria who presented to [facility]. She was just discharged from here on 03/10/17 with the same AMS. This AMS is most likely late effect of CVA with periods of delirium. -Acute encephalopathy with altered mental status. Will admit to telemetry. Neuro checks every [address] head was unremarkable. She was admitted with similar presentation 03/03 -03/10/17. At that time CT Head was also unremarkable and MRI brain was also negative. -Acute on Chronic kidney disease stage IV, vasomotor nephropathy, poa. Consult nephrology, Dr. Major==>no renal replacement, just treat the metabolic acidosis. -Hypertension. Monitor BP. Resume Norvasc. Resume Clonidine at lower dose since BP is low normal . -Diabetes mellitus type II. Fingerstick glucose every 6 hours and at bedtime. Use sliding scale -DVT prophylaxis with heparin subcutaneously Full CODE STATUS No sepsis, negative urine and blood culture. Disposition: [id number] HOME UNDER HOME [facility] Time spent for discharge: 36 minutes Core Measure Documentation - Palliative Care Palliative Care/ Comfort Measures: Not Applicable - Core Measures Any of the following diagnoses?: none - VTE Discharge Requirements Deep Vein Thrombosis/Pulmonary Embolism Present on Admission: No Has pt received <5 days of overlap therapy or INR<2.0: No Anticoagulant overlap therapy prescribed at discharge: No Contraindication No Overlap Therapy order at DC: Not Indicated Exam - Physical Exam Narrative exam: GEN: WDWN, NAD, AWAKE, ALERT, ORIENTATED x 2, periods of confusion. HEENT: NCAT, EOMI, PERRL, OP Clear NECK: supple, no adenopathy, no thyromegaly, no JVD CVS/HEART: RRR, NORMAL S1S2, NO JVD, pulses present bilaterally CHEST/LUNGS: CTA B, Symmetrical chest expansion, good air entry bilaterally GI/Abdomen: soft, NTND, good bowel sounds, no guarding or rebound /Bladder: no suprapubic tenderness, no CVA or paraspinal tenderness EXT/Skin: no c/c/e, no significant edema or obvious rash MSK: left hemiparesis Neuro: CN 2-12 grossly intact, no new focal deficits Psych: calm - Constitutional Vitals: Temp Pulse Resp BP Pulse Ox 98.6 F 83 18 157/96 99 03/21/17 08:00 03/21/17 10:00 03/21/17 08:00 03/21/17 08:00 03/21/17 08:00 Plan Activity: up only with assistance, fall precautions, other (no strenous activity until cleared by pcp, no driving) Diet: low salt, renal Follow up with: PRIMARY MD KENNA [Primary Care Provider] - 3-5 Days MARLON RODRIGUEZ MD [Staff Physician] - 7 Days
--- NOTE | 2017-03-21 13:09 | Progress Note ---
Assessment and Plan Assessment and plan: Patient is a 46 yo woman with htn, dm, htn, ckd stage 4, h/o stroke with left hemiparesis and dysarthria who presented w/ AMS -Acute encephalopathy with altered mental status. Will admit to telemetry. Neuro checks every [address] head was unremarkable. She was admitted with similar presentation 03/03 -03/10/17. At that time CT Head was also unremarkable and MRI brain was also negative. -Acute on Chronic kidney disease stage IV, vasomotor nephropathy, poa. Consult nephrology, Dr. Major -Hypertension. Monitor BP. Resume Norvasc. Resume Clonidine at lower dose since BP is low normal . -Diabetes mellitus type II. Fingerstick glucose every 6 hours and at bedtime. Use sliding scale -DVT prophylaxis with heparin subcutaneously Full CODE STATUS History Interval history: Patient was seen and examined. Follow-up on current diagnosis/ams resolved, asking for food. Overnight uneventful. Imaging, nursing note, chart, labs and old chart reviewed. Discussed with patient. Hospitalist Physical - Physical exam Narrative exam: GEN: WDWN, NAD, AWAKE, ALERT, ORIENTATED x 2, periods of confusion. HEENT: NCAT, EOMI, PERRL, OP Clear NECK: supple, no adenopathy, no thyromegaly, no JVD CVS/HEART: RRR, NORMAL S1S2, NO JVD, pulses present bilaterally CHEST/LUNGS: CTA B, Symmetrical chest expansion, good air entry bilaterally GI/Abdomen: soft, NTND, good bowel sounds, no guarding or rebound /Bladder: no suprapubic tenderness, no CVA or paraspinal tenderness EXT/Skin: no c/c/e, no significant edema or obvious rash MSK: left hemiparesis Neuro: CN 2-12 grossly intact, no new focal deficits Psych: calm - Constitutional Vitals: Temp Pulse Resp BP Pulse Ox 98.6 F 83 18 157/96 99 03/21/17 08:00 03/21/17 10:00 03/21/17 08:00 03/21/17 08:00 03/21/17 08:00 Results - Labs CBC & Chem 7: 03/21/17 06:46 03/21/17 06:46 Labs: Laboratory Last Values WBC 8.1 K/mm3 (4.5-11.0) 03/21/17 06:46 RBC 3.18 M/mm3 (3.65-5.03) L 03/21/17 06:46 Hgb 8.8 gm/dl (10.1-14.3) L 03/21/17 06:46 Hct 26.7 % (30.3-42.9) L 03/21/17 06:46 MCV 84 fl (79-97) 03/21/17 06:46 MCH 28 pg (28-32) 03/21/17 06:46 MCHC 33 % (30-34) 03/21/17 06:46 RDW 14.3 % (13.2-15.2) 03/21/17 06:46 Plt Count 217 K/mm3 (140-440) 03/21/17 06:46 Lymph % (Auto) 19.4 % (13.4-35.0) 03/20/17 05:28 [place] % (Auto) 6.5 % (0.0-7.3) 03/20/17 05:28 Eos % (Auto) 1.4 % (0.0-4.3) 03/20/17 05:28 Baso % (Auto) 0.8 % (0.0-1.8) 03/20/17 05:28 Lymph # 2.0 K/mm3 (1.2-5.4) 03/20/17 05:28 [place] # 0.7 K/mm3 (0.0-0.8) 03/20/17 05:28 Eos # 0.1 K/mm3 (0.0-0.4) 03/20/17 05:28 Baso # 0.1 K/mm3 (0.0-0.1) 03/20/17 05:28 Seg Neutrophils % 71.9 % (40.0-70.0) H 03/20/17 05:28 Seg Neutrophils # 7.3 K/mm3 (1.8-7.7) 03/20/17 05:28 PT 13.2 Sec. (12.2-14.9) 03/19/17 20:59 INR 0.95 (0.87-1.13) 03/19/17 20:59 APTT 38.9 Sec. (24.2-36.6) H 03/19/17 20:59 Thrombin Time 17.4 Sec. (15.1-19.6) 03/19/17 18:52 Sodium 143 mmol/L (137-145) 03/21/17 06:46 Potassium 4.9 mmol/L (3.6-5.0) 03/21/17 06:46 Chloride 105.9 mmol/L (98-107) 03/21/17 06:46 Carbon Dioxide 24 mmol/L (22-30) 03/21/17 06:46 Anion Gap 18 mmol/L 03/21/17 06:46 BUN 25 mg/dL (7-17) H 03/21/17 06:46 Creatinine 3.4 mg/dL (0.7-1.2) H 03/21/17 06:46 Estimated GFR 18 ml/min 03/21/17 06:46 BUN/Creatinine Ratio 7.35 % 03/21/17 06:46 Glucose 207 mg/dL (65-100) H 03/21/17 06:46 POC Glucose 225 (70-105) H 03/21/17 08:18 Lactic Acid 0.50 mmol/L (0.7-2.0) L 03/19/17 20:59 Calcium 8.8 mg/dL (8.4-10.2) 03/21/17 06:46 Total Bilirubin 0.20 mg/dL (0.1-1.2) 03/19/17 20:59 AST 11 units/L (5-40) 03/19/17 20:59 ALT 11 units/L (7-56) 03/19/17 20:59 Alkaline Phosphatase 96 units/L (35-129) 03/19/17 20:59 Ammonia 27.0 umol/L (25-60) 03/19/17 20:59 Total Creatine Kinase 91 units/L (30-135) 03/19/17 20:59 Troponin T 0.046 ng/mL (0.00-0.029) H 03/19/17 20:59 Total Protein 6.4 g/dL (6.3-8.2) 03/19/17 20:59 Albumin 3.2 g/dL (3.9-5) L 03/19/17 20:59 Albumin/Globulin Ratio 1.0 % 03/19/17 20:59 Triglycerides 170 mg/dL (2-149) H 03/19/17 18:52 Cholesterol 165 mg/dL (50-199) 03/19/17 18:52 LDL Cholesterol Direct 82 mg/dL (50-130) 03/19/17 18:52 HDL Cholesterol 49 mg/dL (40-59) 03/19/17 18:52 Cholesterol/HDL Ratio 3.36 % 03/19/17 18:52 Urine Color Yellow (Yellow) 03/19/17 Unknown Urine Turbidity Clear (Clear) 03/19/17 Unknown Urine pH 6.0 (5.0-7.0) 03/19/17 Unknown Ur Specific [place] 1.010 (1.003-1.030) 03/19/17 Unknown Urine Protein >500 mg/dL (Negative) 03/19/17 Unknown Urine Glucose (UA) 50 mg/dL (Negative) 03/19/17 Unknown Urine Ketones Neg mg/dL (Negative) 03/19/17 Unknown Urine Blood Neg (Negative) 03/19/17 Unknown Urine Nitrite Neg (Negative) 03/19/17 Unknown Urine Bilirubin Neg (Negative) 03/19/17 Unknown Urine Urobilinogen < 2.0 mg/dL (<2.0) 03/19/17 Unknown Ur Leukocyte Esterase Tr (Negative) 03/19/17 Unknown Urine WBC (Auto) 4.0 /HPF (0.0-6.0) 03/19/17 Unknown Urine RBC (Auto) 3.0 /HPF (0.0-6.0) 03/19/17 Unknown U Epithel Cells (Auto) < 1.0 /HPF (0-13.0) 03/19/17 Unknown Amorphous Crystals Few 03/19/17 Unknown
[2017-03-21 14:07] VITALS: BP 113/74
--- NOTE | 2017-03-21 15:57 | Progress Note ---
Objective - Vital Signs Vital signs: Vital Signs - 12hr 03/21/17 03/21/17 03/21/17 05:10 06:57 08:00 Temperature 98.9 F 98.6 F Pulse Rate 76 84 83 Respiratory 18 18 Rate Blood Pressure 122/86 161/97 157/96 [Left] O2 Sat by Pulse 100 99 Oximetry 03/21/17 03/21/17 10:00 12:00 Temperature 98.3 F Pulse Rate 83 85 Respiratory 18 Rate Blood Pressure 113/74 [Left] O2 Sat by Pulse Oximetry - Lab 03/21/17 06:46 03/21/17 06:46 Most recent lab results Calcium 8.8 mg/dL (8.4-10.2) 03/21/17 06:46
== END 2017-03-21 16:21 | disposition home health service (06) | DRG 70 ==
LOC: ED 17:59 → 4A 22:27
PROVIDERS: ADMIT Internal Medicine; ATTEND Internal Medicine
DX: G93.49 Other encephalopathy (principal); N17.0 Acute kidney failure with tubular necrosis; I69.322 Dysarthria following cerebral infarction; I69.354 Hemiplegia and hemiparesis following cerebral infarction affecting left non-dominant side; E11.22 Type 2 diabetes mellitus with diabetic chronic kidney disease; I12.9 Hypertensive chronic kidney disease with stage 1 through stage 4 chronic kidney disease, or unspecified chronic kidney disease; N18.4 Chronic kidney disease, stage 4 (severe); K21.9 Gastro-esophageal reflux disease without esophagitis; E87.2 Acidosis; Z88.6 Allergy status to analgesic agent; Z79.4 Long term (current) use of insulin; Z83.3 Family history of diabetes mellitus; Z90.49 Acquired absence of other specified parts of digestive tract; Z82.49 Family history of ischemic heart disease and other diseases of the circulatory system
CPT/HCPCS: 36415; 70450; 80048; 80053; 80061; 81001; 82140; 82550; 82962; 84484; 85025; 85027; 85610; 85670; 85730; 90686; 93005; 93010; A9270-GY; J1644; J1815

== ENCOUNTER 2017-07-27 09:11 | Outpatient (CLI) | payer MEDICAID ==
[2017-07-27] MEDS ORDERED: XYLOCAINE TOPICAL 4% TP ONE (10:17)
== END 2017-07-27 09:12 | disposition home or self-care (01) ==
LOC: WOUND 09:11
PROVIDERS: ATTEND Surgery
DX: S21.002A Unspecified open wound of left breast, initial encounter (principal); E11.22 Type 2 diabetes mellitus with diabetic chronic kidney disease; I12.0 Hypertensive chronic kidney disease with stage 5 chronic kidney disease or end stage renal disease; N18.6 End stage renal disease; Z99.2 Dependence on renal dialysis; Z86.73 Personal history of transient ischemic attack (TIA), and cerebral infarction without residual deficits; Z87.891 Personal history of nicotine dependence
CPT/HCPCS: 11042; 11045; G0463

== ENCOUNTER 2017-07-28 14:56 | Emergency (ER) | payer MEDICAID ==
--- NOTE | 2017-07-28 18:36 | Emergency Department Report ---
Blank Doc - Documentation Documentation: Patient is a 47-year-old female past medical history of dialysis and recent strokes who tripped and fell today she has pain at the left ankle. There is swelling present she has pain mostly at the medial malleoli but some of the lateral malleolus as well. Patient is not able to bear weight. X-ray of the left ankle be given as well as Vicodin for pain control
[2017-07-28] MEDS ORDERED: NORCO 7.5/325 PO ONE (18:38)
[2017-07-28] MEDS ORDERED: DILAUDID IM ONE (19:19)
[2017-07-28] MEDS ORDERED: MARCAINE 0.5% INFILTRATI ONE ×2 (19:20→19:35)
[2017-07-28] MEDS ORDERED: DILAUDID ONE (19:21)
--- NOTE | 2017-07-28 19:24 | XRay Report ---
FINAL REPORT PROCEDURE: XR ANKLE 2V LT TECHNIQUE: LEFT ankle radiographs, AP, lateral, and oblique views. CPT 51684 HISTORY: injury, ankle pain and swelling COMPARISON: No prior studies are available for comparison. FINDINGS: There is a trimalleolar fracture present. The tibia is dislocated anterior to the talus. Talar dome appears grossly intact. Tibia and fibula appear to be dislocated symmetrically anteriorly suggesting the interosseous ligament is intact. Diffuse soft tissue swelling is visualized. No other abnormalities are identified. IMPRESSION: Trimalleolar fracture and anterior dislocation of the tibia and fibula as described. Diffuse soft tissue swelling is visualized.
--- NOTE | 2017-07-28 19:58 | Emergency Department Report ---
ED Extremity Problem HPI - General Chief complaint: Fall Stated complaint: ANKLE SWELLING Time Seen by Provider: 07/28/17 18:32 Source: patient Mode of arrival: Wheelchair Limitations: Physical Limitation - History of Present Illness Initial comments: Please see history that was provided on the black note from her medical screening exam Severity scale (0 -10): 8 - Related Data Home Medications Medication Instructions Recorded Confirmed Last Taken Amlodipine Besylate 10 mg PO DAILY 08/27/15 06/25/17 1 Day Ago ~03/03/17 AtorvaSTATin [Lipitor] 40 mg PO DAILY 08/27/15 06/25/17 1 Day Ago ~03/03/17 Gabapentin 300 mg PO TID 08/27/15 06/25/17 1 Day Ago ~03/03/17 HumaLOG VIAL 15 unit SQ TID 03/19/17 06/25/17 Unknown Metoclopramide 10 mg PO AC 03/19/17 06/25/17 Unknown Sodium Bicarbonate 650 mg PO BID 03/19/17 06/25/17 Unknown Previous Rx's Medication Instructions Recorded Last Taken Type cloNIDine [Catapres] 0.4 mg PO TID #90 tablet 03/10/17 Unknown Rx Acetaminophen [Acetaminophen TAB] 650 mg PO Q4H PRN #30 tablet 03/21/17 Unknown Rx Amoxicillin/Potassium Clav 1 each PO BID 7 Days tablet 07/03/17 Unknown Rx [Augmentin 875-125 Tablet] oxyCODONE /ACETAMINOPHEN [Percocet 1 tab PO Q6H PRN #14 tablet 07/03/17 Unknown Rx 5/325 mg] oxyCODONE /ACETAMINOPHEN [Percocet 1 tab PO Q6HR PRN #14 tablet 07/28/17 Unknown Rx 5/325] Allergies Allergy/AdvReac Type Severity Reaction Status Date / Time ibuprofen Allergy Rash Verified 06/24/17 17:09 ED Review of Systems ROS: Stated complaint: ANKLE SWELLING Other details as noted in HPI Comment: All other systems reviewed and negative ED Past Medical Hx - Past Medical History Previous Medical History?: Yes Hx Hypertension: Yes 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) Hx Congestive Heart Failure: No Hx Diabetes: Yes Hx GERD: Yes Hx Renal Disease: Yes (chronic renal insuf) Hx Asthma: No Hx COPD: No Hx HIV: No - Surgical History Past Surgical History?: Yes Hx Cholecystectomy: Yes Additional Surgical History: Right chest permcath - Social History Smoking Status: Former Smoker Substance Use Type: Prescribed - Medications Home Medications: Home Medications Medication Instructions Recorded Confirmed Last Taken Type Amlodipine Besylate 10 mg PO DAILY 08/27/15 06/25/17 1 Day Ago History ~03/03/17 AtorvaSTATin [Lipitor] 40 mg PO DAILY 08/27/15 06/25/17 1 Day Ago History ~03/03/17 Gabapentin 300 mg PO TID 08/27/15 06/25/17 1 Day Ago History ~03/03/17 cloNIDine [Catapres] 0.4 mg PO TID #90 tablet 03/10/17 06/25/17 Unknown Rx HumaLOG VIAL 15 unit SQ TID 03/19/17 06/25/17 Unknown History Metoclopramide 10 mg PO AC 03/19/17 06/25/17 Unknown History Sodium Bicarbonate 650 mg PO BID 03/19/17 06/25/17 Unknown History Acetaminophen [Acetaminophen TAB] 650 mg PO Q4H PRN #30 tablet 03/21/17 Unknown Rx Amoxicillin/Potassium Clav 1 each PO BID 7 Days tablet 07/03/17 Unknown Rx [Augmentin 875-125 Tablet] oxyCODONE /ACETAMINOPHEN [Percocet 1 tab PO Q6H PRN #14 tablet 07/03/17 Unknown Rx 5/325 mg] oxyCODONE /ACETAMINOPHEN [Percocet 1 tab PO Q6HR PRN #14 tablet 07/28/17 Unknown Rx 5/325] ED Physical Exam - General Limitations: Physical Limitation General appearance: alert, in no apparent distress - Head Head exam: Present: atraumatic, normocephalic - Eye Eye exam: Present: normal appearance - ENT ENT exam: Present: mucous membranes moist - Neck Neck exam: Present: normal inspection - Respiratory Respiratory exam: Present: normal lung sounds bilaterally. Absent: respiratory distress, wheezes, rales - Cardiovascular Cardiovascular Exam: Present: regular rate, normal rhythm. Absent: systolic murmur, diastolic murmur, rubs, gallop - GI/Abdominal GI/Abdominal exam: Present: soft, normal bowel sounds - Extremities Exam Extremities exam: Present: tenderness, joint swelling (left ankle is swollen and the foot is deformed and angulated laterally there is medial and lateral malleolus tenderness) - Back Exam Back exam: Present: normal inspection - Neurological Exam Neurological exam: Present: alert, oriented X3 - Psychiatric Psychiatric exam: Present: normal affect, normal mood - Skin Skin exam: Present: warm, dry, intact, normal color. Absent: rash ED Course Vital Signs 07/28/17 07/28/17 07/28/17 15:03 18:48 19:34 Temperature 99.5 F Pulse Rate 114 H Respiratory 20 18 18 Rate Blood Pressure 136/73 O2 Sat by Pulse 98 Oximetry - Orthopedic Joint Reduction Joint #1 Time Out Performed: Yes Side: left Joint Reduction Location: ankle Analgesia: hematoma block Local Anesthetic Used: Bupivicaine 0.5% Shoulder Technique Used (if applicable): other (ankle was manipulated and was relocated and toes align with the knee) Technique Used: direct manipulation Post-Reduction Neuro Exam: intact Post-Reduction Vascular Exam: intact Post Reduction X-Ray Obtained: No Splint Applied: Yes (. Posterior leg splint with side stirrups was placed by myself and para.) ED Medical Decision Making - Radiology Data Radiology results: report reviewed Trimalleolar fracture of the left ankle with anterior dislocation Critical care attestation.: If time is entered above; I have spent that time in minutes in the direct care of this critically ill patient, excluding procedure time. ED Disposition Clinical Impression: Trimalleolar fracture of ankle, closed Qualifiers: Encounter type: initial encounter Laterality: left Qualified Code(s): S82.852A - Displaced trimalleolar fracture of left lower leg, initial encounter for closed fracture Disposition: DC-01 TO HOME OR SELFCARE Is pt being admited?: No Does the pt Need Aspirin: No Condition: Stable Instructions: Ankle Fracture (ED) Prescriptions: oxyCODONE /ACETAMINOPHEN [Percocet 5/325] 1 tab PO Q6HR PRN #14 tablet PRN Reason: Pain Referrals: PAL LEVY MD [Staff Physician] - 3-5 Days
[2017-07-28 20:13] VITALS: BP 131/71
== END 2017-07-28 20:13 | disposition home or self-care (01) ==
LOC: ED 14:56
DX: S82.852A Displaced trimalleolar fracture of left lower leg, initial encounter for closed fracture (principal); K21.9 Gastro-esophageal reflux disease without esophagitis; I12.9 Hypertensive chronic kidney disease with stage 1 through stage 4 chronic kidney disease, or unspecified chronic kidney disease; E11.22 Type 2 diabetes mellitus with diabetic chronic kidney disease; N18.9 Chronic kidney disease, unspecified; Z86.73 Personal history of transient ischemic attack (TIA), and cerebral infarction without residual deficits; Z90.49 Acquired absence of other specified parts of digestive tract; Z87.891 Personal history of nicotine dependence; Z88.8 Allergy status to other drugs, medicaments and biological substances; W18.39XA Other fall on same level, initial encounter; Y93.89 Activity, other specified; Y92.89 Other specified places as the place of occurrence of the external cause; Y99.8 Other external cause status
CPT/HCPCS: 27818; 73600; 96372; 99284; J1170

== ENCOUNTER 2017-08-03 08:28 | Outpatient (CLI) | payer MEDICAID ==
[2017-08-03] MEDS ORDERED: XYLOCAINE TOPICAL 4% TP ONE (08:43)
== END 2017-08-03 08:29 | disposition home or self-care (01) ==
LOC: WOUND 08:28
PROVIDERS: ATTEND Surgery
DX: S21.002D Unspecified open wound of left breast, subsequent encounter (principal); E11.22 Type 2 diabetes mellitus with diabetic chronic kidney disease; I12.0 Hypertensive chronic kidney disease with stage 5 chronic kidney disease or end stage renal disease; N18.6 End stage renal disease; Z86.73 Personal history of transient ischemic attack (TIA), and cerebral infarction without residual deficits; Z87.891 Personal history of nicotine dependence; X58.XXXD Exposure to other specified factors, subsequent encounter

== ENCOUNTER 2017-08-10 08:55 | Day surgery (SDC) | payer MEDICAID ==
[~2017-08-10 08:55] MED LIST: ANCEF/STERILE WATER 2 GM/20 ML IV NR
--- NOTE | 2017-08-10 09:34 | Anesthesia Consultation ---
Anesthesia Consult and Med Hx Date of service: 08/10/17 - Airway Anesthetic Teeth Evaluation: Good ROM Head & Neck: Adequate Mental/Hyoid Distance: Adequate Mallampati Class: Class II Intubation Access Assessment: Probably Good - Pulmonary Exam CTA: Yes - Cardiac Exam Cardiac Exam: RRR - Pre-Operative Health Status ASA Pre-Surgery Classification: ASA3 Proposed Anesthetic Plan: Spinal Nerve Block: Sciatic - Pulmonary Hx Smoking: Yes (STOPPED X 6 MONTHS- LIGHT SMOKER) Hx Asthma: No COPD: No Hx Pneumonia: Yes (06/2017- IN ER) Hx Sleep Apnea: No (YARA PRE SCREEN LOW RISK.) - Cardiovascular System Hx Hypertension: Yes (X 10 YRS) - Central Nervous System Hx Seizures: Yes (LAST SEIZURE 8 MONTHS AGO- NO MEDS ( LOW BLD SUGAR)) CVA: Yes (X 2 - LEFT SIDED WEAKNESS,DYSARTHRIA) Hx Back Pain: Yes (CHRONIC PAIN) Hx Psychiatric Problems: No - Endocrine Hx Renal Disease: Yes (chronic renal insuf) Hx End Stage Renal Disease: Yes - Hematic Hx Anemia: Yes - Other Systems Hx Cancer: No
--- NOTE | 2017-08-10 09:34 | Anesthesia Day of Surgery ---
Anesthesia Day of Surgery - Day of Surgery Patient Examined: Yes Patient H&P Reviewed: Yes Patient is NPO: Yes
[2017-08-10] MEDS ORDERED: NACL 0.9% 1000 ML 1,000 ML IV SCH (10:00)
[2017-08-10 11:18] LABS: Basophils % (Auto) 0.4 % (0.0-1.8); Eosinophils # (Auto) 0.2 K/mm3 (0.0-0.4); Eosinophils % (Auto) 2.7 % (0.0-4.3); Hematocrit 34.6 % (30.3-42.9); Lymphocytes # (Auto) 1.7 K/mm3 (1.2-5.4); Lymphocytes % (Auto) 18.3 % (13.4-35.0); Mean Corpuscular HGB Conc 32 % (30-34); Mean Corpuscular Hemoglobin 27 pg (28-32); Mean Corpuscular Volume 85 fl (79-97); Monocytes # (Auto) 0.7 K/mm3 (0.0-0.8); Monocytes % (Auto) 7.5 % (0.0-7.3); Platelet Count 276 K/mm3 (140-440); Red Blood Count 4.07 M/mm3 (3.65-5.03); Red Cell Distribution Width 16.8 % (13.2-15.2)
[2017-08-10 11:27] LABS: Calcium 8.9 mg/dL (8.4-10.2)
[2017-08-10] MEDS ORDERED: DIPRIVAN 10 MG/ML IV ONE (12:06)
[2017-08-10] MEDS ORDERED: MORPHINE ONE (12:23)
[2017-08-10] MEDS ORDERED: NACL 0.9% IR ONE (13:09)
--- NOTE | 2017-08-10 13:58 | Procedure Note ---
Date of procedure: 08/10/17 Pre-op diagnosis: displaced left bimalleolar ankle fracture Post-op diagnosis: same Procedure: Open reduction internal fixation left ankle Procedure Patient was brought to the or the hospital bed initially placed in lateral decubitus position which point spinal anesthesia was induced patient was then turned back in the supine position the left lower extremity was prepped and draped in the usual sterile manner. A timeout procedure was done to identify the patient and the correct operative site. The leg was exsanguinated followed by inflation of the pneumatic tourniquet to 300 mmHg a lateral incision was made along the distal fibula this was taken down sharply through skin subcutaneous the fracture was identified using a bone holding forceps the fracture was reduced in place A 5 hole one third semitubular plate was applied which grooves of appropriate lengths following securing the lateral distal fibula attention was then turned to the medial fragment of medial malleolus using the percutaneous approach to guidewires were inserted into the medial malleolus this was confirmed via C-arm, two 4.0 by 50mm cannulated screws were inserted, AP and lateral views obtained show good reduction at the fracture sites and placement of our hardware. The wound copious irrigated and closed in standard routine fashion, post op dressing applied and along with well padded posterior mold. She tolerated the procedure and there were no complications noted. Anesthesia: spinal Surgeon: PAL LEVY Estimated blood loss: minimal Pathology: none Condition: stable Disposition: PACU
[2017-08-10 15:58] VITALS: BP 112/72
--- NOTE | 2017-08-10 21:06 | XRay Report ---
FINAL REPORT PROCEDURE: Left ankle. TECHNIQUE: Three intraoperative views. HISTORY: Left ankle fracture. COMPARISON: Left ankle 07/28/2017. FINDINGS: The ankle fracture has been reduced. There are 2 screws coursing obliquely through the medial malleolus. There is a lateral plate on the distal fibula. There are 5 internal fixation screws. The soft tissues are unremarkable. IMPRESSION: ORIF of the ankle fracture.
== END 2017-08-10 16:36 | disposition home or self-care (01) ==
LOC: OR 08:55
PROVIDERS: ATTEND Orthopaedic Surgery
DX: S82.842A Displaced bimalleolar fracture of left lower leg, initial encounter for closed fracture (principal); I12.0 Hypertensive chronic kidney disease with stage 5 chronic kidney disease or end stage renal disease; E11.22 Type 2 diabetes mellitus with diabetic chronic kidney disease; N18.6 End stage renal disease; G89.29 Other chronic pain; E78.00 Pure hypercholesterolemia, unspecified; Z99.2 Dependence on renal dialysis; W01.0XXA Fall on same level from slipping, tripping and stumbling without subsequent striking against object, initial encounter; Y93.89 Activity, other specified; Y92.89 Other specified places as the place of occurrence of the external cause; Y99.8 Other external cause status; Z87.891 Personal history of nicotine dependence; Z86.73 Personal history of transient ischemic attack (TIA), and cerebral infarction without residual deficits
CPT/HCPCS: 27814; 36415; 73610; 80048; 82962; 85025; C1713; J0690; J2270; J2704; J7030; J1815

== ENCOUNTER 2017-08-24 09:24 | Outpatient (CLI) | payer MEDICAID ==
[2017-08-24] MEDS ORDERED: XYLOCAINE TOPICAL 4% TP ONE ×2 (09:48→09:55)
[2017-08-24] MEDS ORDERED: SILVER NITRATE TP ONE ×2 (10:03→19:00)
== END 2017-08-24 09:25 | disposition home or self-care (01) ==
LOC: WOUND 09:24
PROVIDERS: ATTEND Surgery
DX: S21.002D Unspecified open wound of left breast, subsequent encounter (principal); E11.22 Type 2 diabetes mellitus with diabetic chronic kidney disease; I12.0 Hypertensive chronic kidney disease with stage 5 chronic kidney disease or end stage renal disease; N18.6 End stage renal disease; Z86.73 Personal history of transient ischemic attack (TIA), and cerebral infarction without residual deficits; Z87.891 Personal history of nicotine dependence; X58.XXXD Exposure to other specified factors, subsequent encounter

== ENCOUNTER 2017-09-07 09:19 | Outpatient (CLI) | payer MEDICAID ==
[2017-09-07] MEDS ORDERED: XYLOCAINE TOPICAL 4% TP ONE (09:49)
== END 2017-09-07 09:20 | disposition home or self-care (01) ==
LOC: WOUND 09:19
PROVIDERS: ATTEND Surgery
DX: S21.002D Unspecified open wound of left breast, subsequent encounter (principal); E11.40 Type 2 diabetes mellitus with diabetic neuropathy, unspecified; E11.22 Type 2 diabetes mellitus with diabetic chronic kidney disease; I12.0 Hypertensive chronic kidney disease with stage 5 chronic kidney disease or end stage renal disease; N18.6 End stage renal disease; Z86.73 Personal history of transient ischemic attack (TIA), and cerebral infarction without residual deficits; Z87.891 Personal history of nicotine dependence; X58.XXXD Exposure to other specified factors, subsequent encounter

== ENCOUNTER 2017-09-28 10:31 | Outpatient (CLI) | payer MEDICAID ==
[2017-09-28] MEDS ORDERED: XYLOCAINE TOPICAL 4% TP ONE ×2 (11:16→14:52)
== END 2017-09-28 10:32 | disposition home or self-care (01) ==
LOC: WOUND 10:31
PROVIDERS: ATTEND Surgery
DX: S21.002D Unspecified open wound of left breast, subsequent encounter (principal); E11.22 Type 2 diabetes mellitus with diabetic chronic kidney disease; I12.0 Hypertensive chronic kidney disease with stage 5 chronic kidney disease or end stage renal disease; N18.6 End stage renal disease; Z86.73 Personal history of transient ischemic attack (TIA), and cerebral infarction without residual deficits; Z87.891 Personal history of nicotine dependence; X58.XXXD Exposure to other specified factors, subsequent encounter

== ENCOUNTER 2018-07-31 11:07 | Inpatient (IN) | payer MEDICARE ==
[2018-07-31] MEDS ORDERED: BENADRYL IV ONE (11:19)
[2018-07-31] MEDS ORDERED: SOLU-Medrol IV ONE (11:20)
[2018-07-31] MEDS ORDERED: SOLU-Medrol ONE (11:20)
[2018-07-31] MEDS ORDERED: PEPCID IV ONE ×2 (11:20→11:22)
[2018-07-31] MEDS ORDERED: BENADRYL ONE (11:21)
[2018-07-31] MEDS ORDERED: XYLOCAINE 2% INFILTRATI ONE (11:31)
--- NOTE | 2018-07-31 11:56 | Progress Note ---
Subjective Date of service: 07/31/18 Principal diagnosis: Angiodema and no IV access Interval history: CTSP in ED #20. Dialysis pt with angioedema and requested to intubate and secure airway No IV access so #20 in RUE AV fistula Meds given Etomidate 10mg and lidocaine 100mg Glidescope-DVC and unable to pass ETT because cords closed and moving Then Etomidate 10mg and lidocaine 50mg Glidescope-DVC and unable to pass ETT because cords closed and moving Then Rocuronium 30mg Glidescope-DVC 7.0 OETT 22cm at lips BBS and positive color change CO2
--- NOTE | 2018-07-31 11:57 | Emergency Department Report ---
ED Altered Mental Status HPI - General Chief Complaint: Seizure Stated Complaint: UNRESPONSIVE Time Seen by Provider: 07/31/18 11:51 Source: EMS Mode of arrival: Stretcher Limitations: Altered Mental Status - History of Present Illness Initial Comments: Patient is 48 years old female with history of end-stage renal disease on hemodialysis, due for dialysis today. Patient brought to the emergency room via EMS after patient was found unresponsive by her family. Family stated that patient last time seen normal was last night before she went to bed. EMS stated that patient had history of seizure secondary to hypoglycemia but her blood glucose was 137. Upon arrival to the emergency room, immediately noticed enlarged tongue that protruding out of her mouth, I immediately made the diagnosis of angioedema and made the decision to intubate the patient. to protect her airway. I consulted anesthesia stat, Dr. Barkley presented to the patient room and help with intubation. Patient also given Solu-Medrol, Benadryl and Pepcid. MD Complaint: altered mental status, decreased responsiveness - Related Data Home Medications Medication Instructions Recorded Confirmed Last Taken RX: Amlodipine Besylate 10 mg PO DAILY 08/27/15 08/10/17 08/09/17 RX: AtorvaSTATin [Lipitor] 40 mg PO DAILY 08/27/15 08/10/17 08/09/17 RX: Gabapentin 300 mg PO TID 08/27/15 08/10/17 08/09/17 HumaLOG VIAL 15 unit SQ TID 03/19/17 08/10/17 08/09/17 Metoclopramide 10 mg PO BID 03/19/17 08/10/17 08/09/17 Sodium Bicarbonate 650 mg PO BID 03/19/17 08/10/17 08/09/17 Previous Rx's Medication Instructions Recorded Last Taken Type RX: cloNIDine [Catapres] 0.4 mg PO TID #90 tablet 03/10/17 08/10/17 Rx oxyCODONE /ACETAMINOPHEN [Percocet 1 tab PO Q6HR PRN #14 tablet 07/28/17 08/09/17 Rx 5/325] RX: HYDROcodone/APAP 5-325 [Shirley 1 each PO Q4HR PRN #30 tablet 08/10/17 Unknown Rx 5-325 mg TAB] levETIRAcetam [Keppra TAB] 500 mg PO BID #60 tablet 02/04/19 Unknown Rx Allergies Allergy/AdvReac Type Severity Reaction Status Date / Time ibuprofen Allergy Rash Verified 06/24/17 17:09 ED Review of Systems ROS: Stated complaint: UNRESPONSIVE Other details as noted in HPI Comment: Unobtainable due to pts medical conditions ED Past Medical Hx - Past Medical History Previous Medical History?: Yes Hx Hypertension: Yes (X 10 YRS) 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) Hx Congestive Heart Failure: No Hx Diabetes: Yes (NOT WELL CONTROLLED) Hx GERD: (NO MEDS) Hx Renal Disease: Yes (chronic renal insuf) Hx Seizures: Yes (LAST SEIZURE 8 MONTHS AGO- NO MEDS ( LOW BLD SUGAR)) Hx Asthma: No Hx COPD: No Hx HIV: No - Surgical History Hx Cholecystectomy: Yes Additional Surgical History: Right chest permcath - Social History Smoking Status: Unknown if ever smoked - Medications Home Medications: Home Medications Medication Instructions Recorded Confirmed Last Taken Type RX: Amlodipine Besylate 10 mg PO DAILY 08/27/15 08/10/17 08/09/17 History RX: AtorvaSTATin [Lipitor] 40 mg PO DAILY 08/27/15 08/10/17 08/09/17 History RX: Gabapentin 300 mg PO TID 08/27/15 08/10/17 08/09/17 History RX: cloNIDine [Catapres] 0.4 mg PO TID #90 tablet 03/10/17 08/10/17 08/10/17 Rx HumaLOG VIAL 15 unit SQ TID 03/19/17 08/10/17 08/09/17 History Metoclopramide 10 mg PO BID 03/19/17 08/10/17 08/09/17 History Sodium Bicarbonate 650 mg PO BID 03/19/17 08/10/17 08/09/17 History oxyCODONE /ACETAMINOPHEN [Percocet 1 tab PO Q6HR PRN #14 tablet 07/28/17 08/10/17 08/09/17 Rx 5/325] RX: HYDROcodone/APAP 5-325 [Shirley 1 each PO Q4HR PRN #30 tablet 08/10/17 Unk nown Rx 5-325 mg TAB] levETIRAcetam [Keppra TAB] 500 mg PO BID #60 tablet 07/24/18 Unknown Rx ED Physical Exam - General Limitations: Altered Mental Status General appearance: obtunded - Head Head exam: Present: atraumatic, normocephalic, normal inspection - Eye Eye exam: Present: normal appearance, PERRL Pupils: Present: normal accommodation - ENT ENT exam: Present: other (tongue extremely enlarged with obvious airway compromised.) - Neck Neck exam: Present: normal inspection - Respiratory Respiratory exam: Present: normal lung sounds bilaterally - Cardiovascular Cardiovascular Exam: Present: regular rate, normal rhythm, normal heart sounds - GI/Abdominal GI/Abdominal exam: Present: soft, normal bowel sounds. Absent: distended, tenderness, guarding, rebound, rigid - Extremities Exam Extremities exam: Present: normal inspection - Back Exam Back exam: Present: normal inspection, full ROM. Absent: tenderness, CVA tenderness (R) - Neurological Exam Neurological exam: Present: altered - Skin Skin exam: Present: warm, intact, normal color - Assessment Assessment Interval: Baseline - Level of Consciousness 1a. Level of Consciousness: coma/unresponsive - LOC Questions 1b. LOC Questions: answers no questions correctly - LOC Command 1c. LOC Commands: performs no tasks correctly - Best Gaze 2. Best Gaze: normal - Visual 3. Visual: no visual loss - Facial Palsy 4. Facial Palsy: bilateral complete paralysis - Motor Arm 5b. Motor Arm Right: some gravity effort 5a. Motor Arm Left: some gravity effort - Motor Leg 6b. Motor Leg Right: some gravity effort 6a. Motor Leg Left: some gravity effort - Limb Ataxia 7. Limb Ataxia: absent - Sensory 8. Sensory: coma/unresponsive - Best Language 9. Best Language: coma/unresponsive - Dysarthria 10. Dysarthria: intubated or other barrier - Extinction and Inattention 11. Extinction/Inattention: no abnormality - Scoring Total Score: 23 Stroke Severity: Severe Stroke ED Course Vital Signs 07/31/18 07/31/18 07/31/18 11:10 11:30 11:45 Temperature Pulse Rate 91 H 93 H 109 H Respiratory 10 L 9 L 17 Rate Blood Pressure 127/74 178/110 O2 Sat by Pulse 90 100 100 Oximetry 07/31/18 07/31/18 07/31/18 12:06 12:16 12:30 Temperature Pulse Rate 93 H 95 H Respiratory 18 18 Rate Blood Pressure 165/91 165/91 175/95 O2 Sat by Pulse 100 100 100 Oximetry 07/31/18 07/31/18 07/31/18 12:45 13:00 13:15 Temperature Pulse Rate 95 H 93 H 92 H Respiratory 16 17 16 Rate Blood Pressure 162/87 143/75 149/79 O2 Sat by Pulse 100 Oximetry 07/31/18 07/31/18 07/31/18 13:30 14:15 14:45 Temperature Pulse Rate 90 88 83 Respiratory 16 16 16 Rate Blood Pressure 133/74 146/68 94/57 O2 Sat by Pulse 100 100 Oximetry 07/31/18 07/31/18 07/31/18 15:00 15:15 15:30 Temperature Pulse Rate 81 79 78 Respiratory 16 16 16 Rate Blood Pressure 91/56 90/55 98/62 O2 Sat by Pulse 100 100 100 Oximetry 07/31/18 07/31/18 07/31/18 15:45 16:00 16:15 Temperature Pulse Rate 77 76 75 Respiratory 16 16 16 Rate Blood Pressure 106/64 111/66 121/68 O2 Sat by Pulse 100 Oximetry 07/31/18 07/31/18 07/31/18 16:30 16:45 17:25 Temperature Pulse Rate 75 75 78 Respiratory 16 16 Rate Blood Pressure 121/69 126/70 139/75 O2 Sat by Pulse 100 100 100 Oximetry 07/31/18 17:35 Temperature 97.7 F Pulse Rate Respiratory 20 Rate Blood Pressure O2 Sat by Pulse 100 Oximetry - Central Line Placement Right Femoral Consent Obtained: emergent situation Time Out Performed: Yes Patient Placed on Monitor/Pulse Ox: Yes Prep: mask, gown, gloves Central Line Prep: Povidone-Iodine 1%, Chlorhexidine scrub, sterile drapes applied Local Anesthesia Used: Lidocaine 2% Central Line Lumen Inserted: triple Bloods Obtained for Lab: Yes Central Line Position: good blood return, all ports aspirated, flus, sutured in place with 2-0 Dressing Applied: Tegaderm, sterile gauze/tape Patient Tolerated Procedure: well, no complications Complications: none - Intubation Time Out Performed: Yes Sedative: Etomidate Paralytic: Rocuronium Laryngoscope: Laura Size: 4 Assist Device Used: Bougie ET Tube Size: 7 Tube Secured Location: lips Tube Placement Confirmation: visualized tube passing t, equal breath sounds bilat, no breath sounds over epi, confirmation by capnometr Patient Tolerated Procedure: well, no complications Intubation Complications: difficult intubation - Lab Data Result diagrams: 07/31/18 11:39 07/31/18 11:39 Lab Results 07/31/18 07/31/18 07/31/18 Range/Units 11:39 11:39 12:29 WBC 9.6 (4.5-11.0) K/mm3 RBC 3.89 (3.65-5.03) M/mm3 Hgb 11.3 (10.1-14.3) gm/dl Hct 35.4 (30.3-42.9) % MCV 91 (79-97) fl MCH 29 (28-32) pg MCHC 32 (30-34) % RDW 16.3 H (13.2-15.2) % Plt Count 218 (140-440) K/mm3 Lymph % (Auto) 30.4 (13.4-35.0) % [place] % (Auto) 8.4 H (0.0-7.3) % Eos % (Auto) 2.9 (0.0-4.3) % Baso % (Auto) 0.8 (0.0-1.8) % Lymph # 2.9 (1.2-5.4) K/mm3 [place] # 0.8 (0.0-0.8) K/mm3 Eos # 0.3 (0.0-0.4) K/mm3 Baso # 0.1 (0.0-0.1) K/mm3 Seg Neutrophils % 57.5 (40.0-70.0) % Seg Neutrophils # 5.5 (1.8-7.7) K/mm3 POC ABG pH (7.35-7.45) POC ABG pCO2 (35-45) POC ABG pO2 (80-105) POC ABG HCO3 POC ABG Total CO2 POC ABG O2 Sat POC ABG Base Excess FiO2 % Sodium 139 (137-145) mmol/L Potassium 4.6 (3.6-5.0) mmol/L Chloride 96.6 L (98-107) mmol/L Carbon Dioxide 23 (22-30) mmol/L Anion Gap 24 mmol/L BUN 38 H (7-17) mg/dL Creatinine 7.5 H (0.7-1.2) mg/dL Estimated GFR 7 ml/min BUN/Creatinine Ratio 5 % Glucose 103 H (65-100) mg/dL Calcium 8.9 (8.4-10.2) mg/dL Total Bilirubin 0.20 (0.1-1.2) mg/dL Direct Bilirubin < 0.2 (0-0.2) mg/dL AST 13 (5-40) units/L ALT 9 (7-56) units/L Alkaline Phosphatase 120 (35-129) units/L Ammonia (25-60) umol/L Troponin T 0.070 H (0.00-0.029) ng/mL Total Protein 7.6 (6.3-8.2) g/dL Albumin 4.0 (3.9-5) g/dL Albumin/Globulin Ratio 1.1 % Triglycerides 270 H (2-149) mg/dL Cholesterol 143 (50-199) mg/dL LDL Cholesterol Direct 74 (50-130) mg/dL HDL Cholesterol 31 L (40-59) mg/dL Cholesterol/HDL Ratio 4.61 % Urine Color (Yellow) Urine Turbidity (Clear) Urine pH (5.0-7.0) Ur Specific [place] (1.003-1.030) Urine Protein (Negative) mg/dL Urine Glucose (UA) (Negative) mg/dL Urine Ketones (Negative) mg/dL Urine Blood (Negative) Urine Nitrite (Negative) Urine Bilirubin (Negative) Urine Urobilinogen (<2.0) mg/dL Ur Leukocyte Esterase (Negative) Urine WBC (Auto) (0.0-6.0) /HPF Urine RBC (Auto) (0.0-6.0) /HPF U Epithel Cells (Auto) (0-13.0) /HPF Urine Bacteria (Auto) (Negative) /HPF Urine HCG, Qual (Negative) Urine Opiates Screen Urine Methadone Screen Ur Barbiturates Screen Ur Phencyclidine Scrn Ur Amphetamines Screen U Benzodiazepines Scrn Urine Cocaine Screen U Marijuana (THC) Screen Drugs of Abuse Note 07/31/18 07/31/18 07/31/18 Range/Units 12:29 12:34 12:37 WBC (4.5-11.0) K/mm3 RBC (3.65-5.03) M/mm3 Hgb (10.1-14.3) gm/dl Hct (30.3-42.9) % MCV (79-97) fl MCH (28-32) pg MCHC (30-34) % RDW (13.2-15.2) % Plt Count (140-440) K/mm3 Lymph % (Auto) (13.4-35.0) % [place] % (Auto) (0.0-7.3) % Eos % (Auto) (0.0-4.3) % Baso % (Auto) (0.0-1.8) % Lymph # (1.2-5.4) K/mm3 [place] # (0.0-0.8) K/mm3 Eos # (0.0-0.4) K/mm3 Baso # (0.0-0.1) K/mm3 Seg Neutrophils % (40.0-70.0) % Seg Neutrophils # (1.8-7.7) K/mm3 POC ABG pH 7.442 (7.35-7.45) POC ABG pCO2 35.3 (35-45) POC ABG pO2 194 H (80-105) POC ABG HCO3 24.1 POC ABG Total CO2 25 POC ABG O2 Sat 100 POC ABG Base Excess 0 FiO2 50 % Sodium (137-145) mmol/L Potassium (3.6-5.0) mmol/L Chloride (98-107) mmol/L Carbon Dioxide (22-30) mmol/L Anion Gap mmol/L BUN (7-17) mg/dL Creatinine (0.7-1.2) mg/dL Estimated GFR ml/min BUN/Creatinine Ratio % Glucose (65-100) mg/dL Calcium (8.4-10.2) mg/dL Total Bilirubin (0.1-1.2) mg/dL Direct Bilirubin (0-0.2) mg/dL AST (5-40) units/L ALT (7-56) units/L Alkaline Phosphatase (35-129) units/L Ammonia 36.0 (25-60) umol/L Troponin T (0.00-0.029) ng/mL Total Protein (6.3-8.2) g/dL Albumin (3.9-5) g/dL Albumin/Globulin Ratio % Triglycerides (2-149) mg/dL Cholesterol (50-199) mg/dL LDL Cholesterol Direct (50-130) mg/dL HDL Cholesterol (40-59) mg/dL Cholesterol/HDL Ratio % Urine Color Yellow (Yellow) Urine Turbidity Slightly-cloudy (Clear) Urine pH 7.0 (5.0-7.0) Ur Specific [place] 1.010 (1.003-1.030) Urine Protein 100 mg/dl (Negative) mg/dL Urine Glucose (UA) 150 (Negative) mg/dL Urine Ketones Neg (Negative) mg/dL Urine Blood Neg (Negative) Urine Nitrite Neg (Negative) Urine Bilirubin Neg (Negative) Urine Urobilinogen < 2.0 (<2.0) mg/dL Ur Leukocyte Esterase Lg (Negative) Urine WBC (Auto) 114.0 H (0.0-6.0) /HPF Urine RBC (Auto) 13.0 (0.0-6.0) /HPF U Epithel Cells (Auto) 1.0 (0-13.0) /HPF Urine Bacteria (Auto) 2+ (Negative) /HPF Urine HCG, Qual Negative (Negative) Urine Opiates Screen Urine Methadone Screen Ur Barbiturates Screen Ur Phencyclidine Scrn Ur Amphetamines Screen U Benzodiazepines Scrn Urine Cocaine Screen U Marijuana (THC) Screen Drugs of Abuse Note 07/31/18 Range/Units 12:37 WBC (4.5-11.0) K/mm3 RBC (3.65-5.03) M/mm3 Hgb (10.1-14.3) gm/dl Hct (30.3-42.9) % MCV (79-97) fl MCH (28-32) pg MCHC (30-34) % RDW (13.2-15.2) % Plt Count (140-440) K/mm3 Lymph % (Auto) (13.4-35.0) % [place] % (Auto) (0.0-7.3) % Eos % (Auto) (0.0-4.3) % Baso % (Auto) (0.0-1.8) % Lymph # (1.2-5.4) K/mm3 [place] # (0.0-0.8) K/mm3 Eos # (0.0-0.4) K/mm3 Baso # (0.0-0.1) K/mm3 Seg Neutrophils % (40.0-70.0) % Seg Neutrophils # (1.8-7.7) K/mm3 POC ABG pH (7.35-7.45) POC ABG pCO2 (35-45) POC ABG pO2 (80-105) POC ABG HCO3 POC ABG Total CO2 POC ABG O2 Sat POC ABG Base Excess FiO2 % Sodium (137-145) mmol/L Potassium (3.6-5.0) mmol/L Chloride (98-107) mmol/L Carbon Dioxide (22-30) mmol/L Anion Gap mmol/L BUN (7-17) mg/dL Creatinine (0.7-1.2) mg/dL Estimated GFR ml/min BUN/Creatinine Ratio % Glucose (65-100) mg/dL Calcium (8.4-10.2) mg/dL Total Bilirubin (0.1-1.2) mg/dL Direct Bilirubin (0-0.2) mg/dL AST (5-40) units/L ALT (7-56) units/L Alkaline Phosphatase (35-129) units/L Ammonia (25-60) umol/L Troponin T (0.00-0.029) ng/mL Total Protein (6.3-8.2) g/dL Albumin (3.9-5) g/dL Albumin/Globulin Ratio % Triglycerides (2-149) mg/dL Cholesterol (50-199) mg/dL LDL Cholesterol Direct (50-130) mg/dL HDL Cholesterol (40-59) mg/dL Cholesterol/HDL Ratio % Urine Color (Yellow) Urine Turbidity (Clear) Urine pH (5.0-7.0) Ur Specific [place] (1.003-1.030) Urine Protein (Negative) mg/dL Urine Glucose (UA) (Negative) mg/dL Urine Ketones (Negative) mg/dL Urine Blood (Negative) Urine Nitrite (Negative) Urine Bilirubin (Negative) Urine Urobilinogen (<2.0) mg/dL Ur Leukocyte Esterase (Negative) Urine WBC (Auto) (0.0-6.0) /HPF Urine RBC (Auto) (0.0-6.0) /HPF U Epithel Cells (Auto) (0-13.0) /HPF Urine Bacteria (Auto) (Negative) /HPF Urine HCG, Qual (Negative) Urine Opiates Screen Presumptive negative Urine Methadone Screen Presumptive negative Ur Barbiturates Screen Presumptive negative Ur Phencyclidine Scrn Presumptive negative Ur Amphetamines Screen Presumptive negative U Benzodiazepines Scrn Presumptive negative Urine Cocaine Screen Presumptive negative U Marijuana (THC) Screen Presumptive negative Drugs of Abuse Note Disclamer Critical Care Time: Yes Critical care time in (mins) excluding proc time.: 45 Critical care attestation.: If time is entered above; I have spent that time in minutes in the direct care of this critically ill patient, excluding procedure time. ED Disposition Clinical Impression: Altered mental status, unspecified Angioedema Qualifiers: Encounter type: initial encounter Qualified Code(s): T78.3XXA - Angioneurotic edema, initial encounter Respiratory failure Qualifiers: Chronicity: acute Respiratory failure complication: hypoxia Qualified Code(s): J96.01 - Acute respiratory failure with hypoxia Disposition: 09 OP ADMIT IP TO THIS HOSP Is pt being admited?: Yes Condition: Stable
[2018-07-31] MEDS ORDERED: ARTIFICIAL TEARS OPHTH OINT OU PRN (12:00)
[2018-07-31] MEDS ORDERED: VASELINE LIP THERAPY TP PRN (12:00)
[2018-07-31 12:03] LABS: Basophils # (Auto) 0.1 K/mm3 (0.0-0.1); Basophils % (Auto) 0.8 % (0.0-1.8); Eosinophils # (Auto) 0.3 K/mm3 (0.0-0.4); Eosinophils % (Auto) 2.9 % (0.0-4.3); Hematocrit 35.4 % (30.3-42.9); Hemoglobin 11.3 gm/dl (10.1-14.3); Lymphocytes # (Auto) 2.9 K/mm3 (1.2-5.4); Lymphocytes % (Auto) 30.4 % (13.4-35.0); Mean Corpuscular HGB Conc 32 % (30-34); Mean Corpuscular Volume 91 fl (79-97); Monocytes # (Auto) 0.8 K/mm3 (0.0-0.8); Monocytes % (Auto) 8.4 % (0.0-7.3); Platelet Count 218 K/mm3 (140-440); Red Blood Count 3.89 M/mm3 (3.65-5.03); Red Cell Distribution Width 16.3 % (13.2-15.2)
[2018-07-31 12:15] LABS: Alanine Aminotransferase 9 units/L (7-56); BUN/Creatinine Ratio 5; Blood Urea Nitrogen 38 mg/dL (7-17); Calcium 8.9 mg/dL (8.4-10.2); Hemolysis Index 27
[2018-07-31 12:18] LABS: Bilirubin,Direct < 0.2 mg/dL (0-0.2)
[2018-07-31] MEDS: fentaNYL DRIP Premix 2,000 MCG/100 ML BAG IV SCH (12:30)
[2018-07-31 12:55] LABS: Bacteria,Urine 2+ /HPF (Negative); Bilirubin,Urine NEG (Negative); Blood,Urine NEG (Negative); Color,Urine Yellow (Yellow); Urobilinogen,Urine < 2.0 mg/dL (<2.0)
[2018-07-31] MEDS ORDERED: AMIDATE IV ONE ×2 (12:56→14:46)
[2018-07-31] MEDS ORDERED: ZEMURON IV ONE (12:56)
[2018-07-31 12:57] LABS: Amphetamine Screen,Urine PRESUMPTIVE NEGATIVE; Benzodiazepines Screen,Urine PRESUMPTIVE NEGATIVE; Cannabinoid Screen,Urine PRESUMPTIVE NEGATIVE; Cocaine Screen,Urine PRESUMPTIVE NEGATIVE; HCG Qualitative,Urine Negative (Negative); Methadone Screen,Urine PRESUMPTIVE NEGATIVE; Opiate Screen,Urine PRESUMPTIVE NEGATIVE
--- NOTE | 2018-07-31 13:12 | XRay Report ---
AP CHEST: HISTORY: Endotracheal tube placement The endotracheal tube is in good position terminating 3.7 cm superior to the lexi. Right IJ venous catheter has been removed since 06/28/17. AP view of the chest demonstrates a normal mediastinal and cardiac contour with clear lungs and normal bony and soft tissue structures. IMPRESSION: Unremarkable AP chest. Adequate endotracheal tube placement.
[2018-07-31] MEDS ORDERED: SODIUM CHLORIDE FLUSH SYRINGE 10 ML IV PRN (13:28)
--- NOTE | 2018-07-31 13:31 | History and Physical Report ---
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 Pt is unresponsive and unable to provide history. Pt h istory taken from ED staff, and medical record. As per EMS, and ED staff the Pt was found down and unresponsive. Pt seen and evaluated in ED and found to have Angoiedema, ESRD, and Acute Respiratory Failure and inability to protect her airway due to angioedema. Pt Intubated and placed on vent support. Pt admitted to ICU. Pulmonary team consulted in ED. Nephrology team consulted in ED for urgent dialysis. No further history obtainable. Past History Past Medical History: diabetes, ESRD, hypertension, seizures, stroke Past Surgical History: cholecystectomy, Other (Permacath) Social history: single. denies: smoking, alcohol abuse, prescription drug abuse Family history: diabetes, hypertension Medications and Allergies Allergies Allergy/AdvReac Type Severity Reaction Status Date / Time ibuprofen Allergy Rash Verified 06/24/17 17:09 Home Medications Medication Instructions Recorded Confirmed Last Taken Type Amlodipine Besylate 10 mg PO DAILY 08/27/15 08/10/17 08/09/17 History AtorvaSTATin [Lipitor] 40 mg PO DAILY 08/27/15 08/10/17 08/09/17 History Gabapentin 300 mg PO TID 08/27/15 08/10/17 08/09/17 History cloNIDine [Catapres] 0.4 mg PO TID #90 tablet 03/10/17 08/10/17 08/10/17 Rx HumaLOG VIAL 15 unit SQ TID 03/19/17 08/10/17 08/09/17 History Metoclopramide 10 mg PO BID 03/19/17 08/10/17 08/09/17 History Sodium Bicarbonate 650 mg PO BID 03/19/17 08/10/17 08/09/17 History oxyCODONE /ACETAMINOPHEN [Percocet 1 tab PO Q6HR PRN #14 tablet 07/28/17 08/10/17 08/09/17 Rx 5/325] HYDROcodone/APAP 5-325 [Arnett 1 each PO Q4HR PRN #30 tablet 08/10/17 Unknown Rx 5-325 mg TAB] levETIRAcetam [Keppra TAB] 500 mg PO BID #60 tablet 07/24/18 Unknown Rx Active Meds: Active Medications Hydrophilic Ointment (Vaseline Lip Therapy) 1 applic TP Q2HR PRN PRN Reason: Dry Lips Fentanyl Citrate (Fentanyl Drip Premix) 2,000 mcg in 100 mls @ 3.402 mls/hr IV TITR LORENE; Protocol Last Admin: 07/31/18 12:30 Dose: 1 mcg/kg/hr, 3.402 mls/hr Documented by: Multi-Ingred Cream/Lotion/Oil/Oint (Artificial Tears Ophth Oint) 1 applic OU Q4 HR PRN PRN Reason: Dry Eye(s) Sodium Chloride (Sodium Chloride Flush Syringe 10 Ml) 10 ml IV BID LORENE Review of Systems ROS unobtainable: due to endotracheal tube, due to mental status Constitutional: weight loss Exam - Constitutional Vitals: Temp Pulse Resp BP Pulse Ox 93 H 17 143/75 100 07/31/18 13:00 07/31/18 13:00 07/31/18 13:00 07/31/18 12:45 General appearance: Present: severe distress - EENT Eyes: Present: miosis ENT: hearing intact, clear oral mucosa - Neck Neck: Present: supple, normal ROM - Respiratory Respiratory effort: normal Respiratory: bilateral: diminished, rhonchi - Cardiovascular Heart Sounds: Present: S1 & S2. Absent: rub, click - Extremities Extremities: pulses symmetrical, No edema Peripheral Pulses: within normal limits - Abdominal General gastrointestinal: Present: soft, non-tender, non-distended, normal bowel sounds Female genitourinary: Present: normal - Integumentary Integumentary: Present: clear, warm, dry - Musculoskeletal Musculoskeletal: gait normal, strength equal bilaterally - Psychiatric Psychiatric: no appropriate mood/affect, no intact judgment & insight, no memory intact - Neurologic Neurologic: CNII-XII intact, moves all extremities Results - Labs CBC & Chem 7: 07/31/18 11:39 07/31/18 11:39 Labs: Abnormal lab results 07/31/18 07/31/18 07/31/18 Range/Units 11:39 11:39 12:29 RDW 16.3 H (13.2-15.2) % [place] % (Auto) 8.4 H (0.0-7.3) % Chloride 96.6 L (98-107) mmol/L BUN 38 H (7-17) mg/dL Creatinine 7.5 H (0.7-1.2) mg/dL Glucose 103 H (65-100) mg/dL Troponin T 0.070 H (0.00-0.029) ng/mL Urine WBC (Auto) (0.0-6.0) /HPF 07/31/18 Range/Units 12:37 RDW (13.2-15.2) % [place] % (Auto) (0.0-7.3) % Chloride (98-107) mmol/L BUN (7-17) mg/dL Creatinine (0.7-1.2) mg/dL Glucose (65-100) mg/dL Troponin T (0.00-0.029) ng/mL Urine WBC (Auto) 114.0 H (0.0-6.0) /HPF Assessment and Plan - Patient Problems (1) Respiratory failure Current Visit: Yes Status: Acute Qualifiers: Chronicity: acute Respiratory failure complication: hypoxia Qualified Code(s): J96.01 - Acute respiratory failure with hypoxia Plan to address problem: Admit to ICU, wean vent as tolerated, supplemental oxygen, nebulizer therapy, daily SBT, sedation holiday, ABG daily, chest x ray, The high probability of a clinically significant, sudden or life threatening deterioration of the [pulmonary, renal, endocrine, neuro] system(s) required my full and direct attention, intervention and personal management. The aggregate critical care time was [65] minutes. This time is in addition to time spent performing reported procedures but includes the following: [x] Data Review and interpretation [x] Patient assessment and monitoring of vital signs [x] Documentation [x] Medication orders and management (2) ESRD (end stage renal disease) on dialysis Current Visit: Yes Status: Acute Plan to address problem: Nephrology consulted for urgent dialysis, monitor uop q shift, avoid nephrotoxic agents. (3) Angioedema Current Visit: Yes Status: Acute Qualifiers: Encounter type: initial encounter Qualified Code(s): T78.3XXA - Angioneurotic edema, initial encounter Plan to address problem: IV steroid therapy, supportive care, Pt intubated for airway protection. (4) UTI (urinary tract infection) Current Visit: Yes Status: Acute Qualifiers: Encounter type: initial encounter Plan to address problem: IV antibiotics, urinalysis, monitor uop q shift, cbc, (5) Diabetes Current Visit: Yes Status: Acute Plan to address problem: ADA diet, insulin, accu check (6) HTN (hypertension) Current Visit: Yes Status: Acute Qualifiers: Hypertension type: essential hypertension Qualified Code(s): I10 - Essential (primary) hypertension Plan to address problem: monitor bp q shift (7) DVT prophylaxis Current Visit: No Status: Acute Plan to address problem: SCD to BLE while in bed
[2018-07-31 13:40] LABS: Chol/HDL Ratio 4.61 %
--- NOTE | 2018-07-31 14:52 | Cat Scan Report ---
CT HEAD WITHOUT CONTRAST: HISTORY: Altered mental status. TECHNIQUE: Sequential CT images without contrast. FINDINGS: Images obtained show bilateral prominence of the sulci and ventricles. There are no abnormal intra- or extra-axial blood or fluid collections. There are no focal masses or evidence of mass effect. The [place] white matter differentiation appears within normal limits. Regions of periventricular decreased attenuation are consistent with microangiopathic ischemic disease. Chronic lacunar infarcts are identified in the both basal ganglia and right alfred. The posterior fossa structures including the fourth ventricle, cerebellum, and brainstem appear normal. IMPRESSION: Evidence of atrophy and microangiopathic ischemic disease. Chronic lacunar infarcts as described. No acute intracranial process noted. No significant change since 06/24/17.
[2018-07-31] MEDS ORDERED: NACL 0.9% 1000 ML 1,000 ML ONE (15:14)
--- NOTE | 2018-07-31 21:44 | Consultation ---
History of Present Illness - Reason for Consult end stage renal disease - History of Present Illness Patient seen earlier today afternoon in the ER. She is well known to us from our outpatient dialysis unit, with ESRD, on TTS schedule, who was found unresponsive at home and was brought into the ER for further evaluaiton. Concern for possible initial seizure like activity per EMS. Upon evaluation by physicians in the ER, findings were concerning for larygeal edema and perioral/lip/tongue swelling suggesting possible angioedema. Patient was intubated for airway protection. Intubation was proved difficult and anesthesiology ultimately had to be called for intubation. Nephrology consulted for chronic HD needs. Past History Past Medical History: diabetes, ESRD, hypertension, seizures, stroke Past Surgical History: cholecystectomy, Other (Permacath) Social history: single. denies: smoking, alcohol abuse, prescription drug abuse Family history: diabetes, hypertension Medications and Allergies Allergies Allergy/AdvReac Type Severity Reaction Status Date / Time ibuprofen Allergy Rash Verified 06/24/17 17:09 Home Medications Medication Instructions Recorded Confirmed Last Taken Type Amlodipine Besylate 10 mg PO DAILY 08/27/15 08/10/17 08/09/17 History AtorvaSTATin [Lipitor] 40 mg PO DAILY 08/27/15 08/10/17 08/09/17 History Gabapentin 300 mg PO TID 08/27/15 08/10/17 08/09/17 History cloNIDine [Catapres] 0.4 mg PO TID #90 tablet 03/10/17 08/10/17 08/10/17 Rx HumaLOG VIAL 15 unit SQ TID 03/19/17 08/10/17 08/09/17 History Metoclopramide 10 mg PO BID 03/19/17 08/10/17 08/09/17 History Sodium Bicarbonate 650 mg PO BID 03/19/17 08/10/17 08/09/17 History oxyCODONE /ACETAMINOPHEN [Percocet 1 tab PO Q6HR PRN #14 tablet 07/28/17 08/10/17 08/09/17 Rx 5/325] HYDROcodone/APAP 5-325 [[place] 1 each PO Q4HR PRN #30 tablet 08/10/17 Unknown Rx 5-325 mg TAB] levETIRAcetam [Keppra TAB] 500 mg PO BID #60 tablet 07/24/18 Unknown Rx Active Meds: Active Medications Hydrophilic Ointment (Vaseline Lip Therapy) 1 applic TP Q2HR PRN PRN Reason: Dry Lips Fentanyl Citrate (Fentanyl Drip Premix) 2,000 mcg in 100 mls @ 3.402 mls/hr IV TITR [facility]; Protocol Last Titration: 07/31/18 20:06 Dose: 2 mcg/kg/hr, 6.804 mls/hr Documented by: Ceftriaxone Sodium (Rocephin/Ns 1 Gm/50 Ml) 1 gm in 50 mls @ 100 mls/hr IV Q24HR [facility]; Protocol Methylprednisolone Sodium Succinate (Solu-Medrol) 40 mg IV Q12H [facility] Multi-Ingred Cream/Lotion/Oil/Oint (Artificial Tears Ophth Oint) 1 applic OU Q4HR PRN PRN Reason: Dry Eye(s) Pneumococcal Polyvalent Vaccine (Pneumovax 23) 0.5 ml IM .ONCE ONE Stop: 08/01/18 12:01 Sodium Chloride (Sodium Chloride Flush Syringe 10 Ml) 10 ml IV BID [facility] Sodium Chloride (Sodium Chloride Flush Syringe 10 Ml) 10 ml IV PRN PRN PRN Reason: LINE FLUSH Review of Systems ROS unobtainable: due to endotracheal tube Exam - Vital Signs Vital signs: Vital Signs Pulse Resp Pulse Ox 91 H 10 L 90 07/31/18 11:10 07/31/18 11:10 07/31/18 11:10 - General Appearance General appearance: appears stated age, sedated on ventilator, intubated EENT: ATNC Neck: Present: neck supple, trachea midline Respiratory: Clear to Ascultation Heart: regular, S1S2 Gastrointestinal: Present: normal, normoactive bowel sounds Integumentary: no rash, warm and dry Neurologic: obtunded Musculoskeletal: Present: deferred, other (-edema ) Psychiatric: other (sedated on ventilator ) Results - Lab Results 07/31/18 11:39 07/31/18 11:39 Most recent lab results Calcium 8.9 mg/dL (8.4-10.2) 07/31/18 11:39 Assessment and Plan - Patient Problems (1) ESRD (end stage renal disease) on dialysis Current Visit: Yes Status: Chronic Plan to address problem: Place orders for HD on a inpatient TTS schedule. (2) Acute respiratory failure with hypoxia Current Visit: Yes Status: Acute Plan to address problem: Patient remains intubated. Further management per ICU/pulmonology. (3) Angioedema Current Visit: Yes Status: Acute Qualifiers: Encounter type: initial encounter Qualified Code(s): T78.3XXA - Angioneurotic edema, initial encounter Plan to address problem: Intubated for airway protection. Management per primary/ICU team. (4) Encephalopathy Current Visit: No Status: Acute Plan to address problem: Remains intubated and sedated. Neurochecks per protocol. CT head without any acute abnormalities.
[2018-07-31] MEDS ORDERED: NACL 0.9% 100 ML IV PRN (21:53)
[2018-07-31] MEDS ORDERED: ALBURX 25% (ALBUMIN) IV PRN (21:53)
[2018-08-01] MEDS: SOLU-Medrol IV SCH ×2 (01:00→13:18)
[2018-08-01] MEDS: fentaNYL DRIP Premix 2,000 MCG/100 ML BAG IV SCH (06:21)
--- NOTE | 2018-08-01 07:17 | Progress Note ---
Assessment and Plan - Patient Problems (1) ESRD (end stage renal disease) on dialysis Current Visit: Yes Status: Chronic Plan to address problem: Place orders for HD on a inpatient TTS schedule. (2) Acute respiratory failure with hypoxia Current Visit: Yes Status: Acute Plan to address problem: Patient remains intubated. Further management per ICU/pulmonology. (3) Angioedema Current Visit: Yes Status: Acute Qualifiers: Encounter type: initial encounter Qualified Code(s): T78.3XXA - Angioneurotic edema, initial encounter Plan to address problem: Intubated for airway protection. Management per primary/ICU team. (4) Encephalopathy Current Visit: No Status: Acute Plan to address problem: Remains intubated and sedated. Neurochecks per protocol. CT head without any acute abnormalities. (5) Hypertensive chronic kidney disease with stage 5 chronic kidney disease or end stage renal disease Current Visit: Yes Status: Chronic Plan to address problem: Will continue to monitor. Can restart her home medications when appropriate. Subjective Date of service: 08/01/18 Principal diagnosis: Angiodema and no IV access Interval history: No acute events overnight. Remains intubated, on fentanyl gtt. Tongue swelling per nursing staff has decreased. Difficulty following some simple commands but she does respond to tactile stimuli and when fentanyl was weaned down, she did open eyes spontaneously. Labs pending this am. Plan for HD today. Objective - Vital Signs Vital signs: Vital Signs - 12hr 07/31/18 07/31/18 07/31/18 19:16 19:18 19:30 Temperature Pulse Rate 97 H 95 H 97 H Respiratory 15 8 L 10 L Rate Blood Pressure 169/108 169/108 178/101 O2 Sat by Pulse 100 100 100 Oximetry 07/31/18 07/31/18 07/31/18 19:35 19:40 19:45 Temperature 98.5 F Pulse Rate 109 H 108 H Respiratory 11 L Rate Blood Pressure 169/108 171/110 O2 Sat by Pulse 100 100 Oximetry 07/31/18 07/31/18 07/31/18 20:00 20:15 20:30 Temperature Pulse Rate 100 H 101 H 100 H Respiratory 16 12 Rate Blood Pressure 179/127 162/103 181/94 O2 Sat by Pulse 100 100 100 Oximetry 07/31/18 07/31/18 07/31/18 20:46 21:00 21:15 Temperature Pulse Rate 92 H 92 H 92 H Respiratory 16 16 16 Rate Blood Pressure 148/77 155/78 144/75 O2 Sat by Pulse 100 100 100 Oximetry 07/31/18 07/31/18 07/31/18 21:30 21:45 22:00 Temperature Pulse Rate 91 H 90 77 Respiratory 16 16 16 Rate Blood Pressure 148/81 147/81 149/75 O2 Sat by Pulse 100 100 100 Oximetry 07/31/18 07/31/18 07/31/18 22:15 22:30 22:45 Temperature Pulse Rate 90 89 88 Respiratory 16 16 16 Rate Blood Pressure 144/82 140/81 139/73 O2 Sat by Pulse 100 100 100 Oximetry 07/31/18 07/31/18 07/31/18 23:00 23:15 23:16 Temperature 98.7 F Pulse Rate 87 86 Respiratory 16 16 Rate Blood Pressure 138/73 136/75 O2 Sat by Pulse 100 100 Oximetry 07/31/18 07/31/18 07/31/18 23:30 23:35 23:45 Temperature Pulse Rate 85 83 84 Respiratory 16 16 Rate Blood Pressure 129/71 125/71 125/71 O2 Sat by Pulse 100 100 100 Oximetry 08/01/18 08/01/18 08/01/18 00:00 00:15 00:30 Temperature Pulse Rate 83 82 82 Respiratory 16 16 16 Rate Blood Pressure 122/69 125/72 124/69 O2 Sat by Pulse 100 100 100 Oximetry 08/01/18 08/01/18 08/01/18 00:45 01:00 01:15 Temperature Pulse Rate 81 80 79 Respiratory 16 16 16 Rate Blood Pressure 118/68 125/71 123/71 O2 Sat by Pulse 100 100 100 Oximetry 08/01/18 08/01/18 08/01/18 01:30 01:45 02:00 Temperature Pulse Rate 79 78 77 Respiratory 16 16 16 Rate Blood Pressure 126/70 125/69 133/73 O2 Sat by Pulse 100 100 100 Oximetry 08/01/18 08/01/18 08/01/18 02:15 02:30 02:45 Temperature Pulse Rate 77 76 77 Respiratory 16 16 16 Rate Blood Pressure 132/73 136/77 143/76 O2 Sat by Pulse 100 100 100 Oximetry 08/01/18 08/01/18 08/01/18 02:49 03:00 03:15 Temperature Pulse Rate 77 77 77 Respiratory 16 16 Rate Blood Pressure 143/76 145/76 145/79 O2 Sat by Pulse 100 100 100 Oximetry 08/01/18 08/01/18 08/01/18 03:30 03:33 03:45 Temperature 99.6 F Pulse Rate 77 77 Respiratory 16 16 Rate Blood Pressure 148/79 137/74 O2 Sat by Pulse 100 100 Oximetry 08/01/18 08/01/18 08/01/18 04:00 04:15 04:30 Temperature Pulse Rate 78 78 78 Respiratory 16 16 16 Rate Blood Pressure 144/78 145/75 145/77 O2 Sat by Pulse 100 100 100 Oximetry 08/01/18 08/01/18 08/01/18 04:46 05:00 05:15 Temperature Pulse Rate 109 H 106 H 102 H Respiratory 15 21 14 Rate Blood Pressure 184/135 160/100 174/102 O2 Sat by Pulse 100 100 100 Oximetry 08/01/18 08/01/18 08/01/18 05:30 05:45 06:00 Temperature Pulse Rate 104 H 95 H 95 H Respiratory 15 16 16 Rate Blood Pressure 181/96 157/85 160/92 O2 Sat by Pulse 100 100 100 Oximetry 08/01/18 06:15 Temperature Pulse Rate 98 H Respiratory 16 Rate Blood Pressure 140/100 O2 Sat by Pulse 100 Oximetry - General Appearance General appearance: appears stated age, chronically ill, intubated EENT: ATNC, PERRL Neck: no JVD, no thyromegaly Respiratory: Present: Clear to Ascultation Cardiology: regular, S1S2 Gastrointestinal: normal, normoactive bowel sounds Integumentary: no rash, warm and dry Neurologic: other (continues on fentanyl ) Musculoskeletal: other (-edema ) Psychiatric: other (unable to fully assess as she is on sedation with fentanyl) - Lab 07/31/18 11:39 07/31/18 11:39 Most recent lab results Calcium 8.9 mg/dL (8.4-10.2) 07/31/18 11:39 - Imaging Chest x-ray: report reviewed - Allied health notes Allied health notes reviewed: nursing Medications & Allergies - Medications Allergies/Adverse Reactions: Allergies ibuprofen Allergy (Verified 06/24/17 17:09) Rash Home Medications: Home Medications Medication Instructions Recorded Confirmed Last Taken Type Amlodipine Besylate 10 mg PO DAILY 08/27/15 08/10/17 08/09/17 History AtorvaSTATin [Lipitor] 40 mg PO DAILY 08/27/15 08/10/17 08/09/17 History Gabapentin 300 mg PO TID 08/27/15 08/10/17 08/09/17 History cloNIDine [Catapres] 0.4 mg PO TID #90 tablet 03/10/17 08/10/17 08/10/17 Rx HumaLOG VIAL 15 unit SQ TID 03/19/17 08/10/17 08/09/17 History Metoclopramide 10 mg PO BID 03/19/17 08/10/17 08/09/17 History Sodium Bicarbonate 650 mg PO BID 03/19/17 08/10/17 08/09/17 History oxyCODONE /ACETAMINOPHEN [Percocet 1 tab PO Q6HR PRN #14 tablet 07/28/17 08/10/17 08/09/17 Rx 5/325] HYDROcodone/APAP 5-325 [[place] 1 each PO Q4HR PRN #30 tablet 08/10/17 Unknown Rx 5-325 mg TAB] levETIRAcetam [Keppra TAB] 500 mg PO BID #60 tablet 07/24/18 Unknown Rx Active Medications: Generic Name Dose Route Start Last Admin Trade Name Freq PRN Reason Stop Dose Admin Albumin Human 12.5 gm 07/31/18 21:53 Alburx 25% (Albumin) IV DESIREE PRN Hypotension Hydrophilic Ointment 1 applic 07/31/18 12:00 Vaseline Lip Therapy TP Q2HR PRN Dry Lips Fentanyl Citrate 2,000 mcg in 100 mls @ 3.402 mls/hr 07/31/18 12:00 08/01/18 06:23 Fentanyl Drip Premix IV 2 mcg/kg/hr TITR [facility] 6.804 mls/hr Titration Protocol 1 MCG/KG/HR Ceftriaxone Sodium 1 gm in 50 mls @ 100 mls/hr 08/01/18 10:00 Rocephin/Ns 1 Gm/50 Ml IV Q24HR [facility] Protocol Sodium Chloride 100 mls @ 999 mls/hr 07/31/18 21:53 Nacl 0.9% IV [facility] PRN Hypotension Methylprednisolone Sodium Succinate 40 mg 08/01/18 00:00 08/01/18 01:00 Solu-Medrol IV 40 mg Q12H [facility] Administration Multi-Ingred Cream/Lotion/Oil/Oint 1 applic 07/31/18 12:00 Artificial Tears Ophth Oint OU Q4HR PRN Dry Eye(s) Pneumococcal Polyvalent Vaccine 0.5 ml 08/01/18 12:00 Pneumovax 23 IM 08/01/18 12:01 .ONCE ONE Sodium Chloride 10 ml 07/31/18 22:00 Sodium Chloride Flush Syringe 10 Ml IV BID [facility] Sodium Chloride 10 ml 07/31/18 13:28 Sodium Chloride Flush Syringe 10 Ml IV PRN PRN LINE FLUSH
[2018-08-01] MEDS: SODIUM CHLORIDE FLUSH SYRINGE 10 ML IV SCH (10:54)
[2018-08-01] MEDS: ROCEPHIN/NS 1 GM/50 ML 1 GM/50 ML BAG IV SCH (10:54)
[2018-08-01] MEDS: PEPCID IV SCH (10:54)
[2018-08-01] MEDS ORDERED: SUBLIMAZE IV PRN (11:32)
[2018-08-01] MEDS ORDERED: AFLURIA QUAD 2018-2019 SYRINGE IM ONE (12:00)
[2018-08-01] MEDS ORDERED: PNEUMOVAX 23 IM ONE (12:00)
--- NOTE | 2018-08-01 12:32 | Consultation ---
History of Present Illness Consult date: 08/01/18 Requesting physician: JUSTIN GONZALEZ Reason for consult: other (Altered mental state and questionable angioedema) History of present illness: 48 y/o, obese AAF with several comorbities including prior stroke with dysarthr ia who was found "unresponsive" at home. EMS called and patient brought to ED. ED elected to intubate patient as they were concerned about tongue swelling and angioedema. She was started on steroids, benadryl and pepcid. She was also placed on sedation with Fentanyl. This am, patient is not responsive, on vent. Sedation is off. No family is present. Patient is not on an valerie at home and has no known allergy to this medication. Family was here yesterday and told staff that patient had recently been started on a new medicine, keppra but they were not sure why. Remainder is negative. Past History Past Medical History: diabetes, ESRD, hypertension, seizures, stroke Past Surgical History: cholecystectomy, Other (Permacath) Social history: single. denies: smoking, alcohol abuse, prescription drug abuse Family history: diabetes, hypertension Medications and Allergies Allergies Allergy/AdvReac Type Severity Reaction Status Date / Time ibuprofen Allergy Rash Verified 06/24/17 17:09 Home Medications Medication Instructions Recorded Confirmed Last Taken Type Amlodipine Besylate 10 mg PO DAILY 08/27/15 08/10/17 08/09/17 History AtorvaSTATin [Lipitor] 40 mg PO DAILY 08/27/15 08/10/17 08/09/17 History Gabapentin 300 mg PO TID 08/27/15 08/10/17 08/09/17 History cloNIDine [Catapres] 0.4 mg PO TID #90 tablet 03/10/17 08/10/17 08/10/17 Rx HumaLOG VIAL 15 unit SQ TID 03/19/17 08/10/17 08/09/17 History Metoclopramide 10 mg PO BID 03/19/17 08/10/17 08/09/17 History Sodium Bicarbonate 650 mg PO BID 03/19/17 08/10/17 08/09/17 History oxyCODONE /ACETAMINOPHEN [Percocet 1 tab PO Q6HR PRN #14 tablet 07/28/17 08/10/17 08/09/17 Rx 5/325] HYDROcodone/APAP 5-325 [[place] 1 each PO Q4HR PRN #30 tablet 08/10/17 Unknown Rx 5-325 mg TAB] levETIRAcetam [Keppra TAB] 500 mg PO BID #60 tablet 07/24/18 Unknown Rx Active Meds: Active Medications Albumin Human (Alburx 25% (Albumin)) 12.5 gm IV DESIREE PRN PRN Reason: Hypotension Amlodipine Besylate (Norvasc) 10 mg PO DAILY [facility] Clonidine HCl (Catapres) 0.1 mg PO Q8HR [facility] Famotidine (Pepcid) 20 mg IV DAILY [facility] Last Admin: 08/01/18 10:54 Dose: 20 mg Documented by: Fentanyl (Sublimaze) 25 mcg IV Q2H PRN PRN Reason: Pain , Severe (7-10) Heparin Sodium (Porcine) (Heparin) 5,000 unit SUB-Q Q8HR [facility] Hydrophilic Ointment (Vaseline Lip Therapy) 1 applic TP Q2HR PRN PRN Reason: Dry Lips Fentanyl Citrate (Fentanyl Drip Premix) 2,000 mcg in 100 mls @ 3.402 mls/hr IV TITR [facility]; Protocol Last Titration: 08/01/18 11:07 Dose: 0 mcg/kg/hr, 0 mls/hr Documented by: Ceftriaxone Sodium (Rocephin/Ns 1 Gm/50 Ml) 1 gm in 50 mls @ 100 mls/hr IV Q24HR [facility]; Protocol Stop: 08/07/18 10:29 Last Admin: 08/01/18 10:54 Dose: 100 mls/hr Documented by: Sodium Chloride (Nacl 0.9%) 100 mls @ 999 mls/hr IV [facility]IREE PRN PRN Reason: Hypotension Insulin Human Lispro (Humalog) 0 unit SUB-Q Q6HR [facility]; Protocol Lorazepam (Ativan) 1 mg IV Q4H PRN PRN Reason: Agitation Methylprednisolone Sodium Succinate (Solu-Medrol) 40 mg IV Q12H [facility] Last Admin: 08/01/18 01:00 Dose: 40 mg Documented by: Multi-Ingred Cream/Lotion/Oil/Oint (Artificial Tears Ophth Oint) 1 applic OU Q4HR PRN PRN Reason: Dry Eye(s) Sodium Chloride (Sodium Chloride Flush Syringe 10 Ml) 10 ml IV BID [facility] Last Admin: 08/01/18 10:54 Dose: 10 ml Documented by: Sodium Chloride (Sodium Chloride Flush Syringe 10 Ml) 10 ml IV PRN PRN PRN Reason: LINE FLUSH Review of Systems ROS unobtainable: due to endotracheal tube, due to mental status Physical Examination Vital signs: Vital Signs Pulse Resp Pulse Ox 91 H 10 L 90 07/31/18 11:10 07/31/18 11:10 07/31/18 11:10 General appearance: no acute distress, comatose, other (morbidly obese) Eyes: non-icteric ENT: other (orally intubated and sedated) Neck: supple Effort: normal Ascultation: Bilateral: clear, diminished breath sounds Percussion: Bilateral: not dull Cardiovascular: regular rate and rhythm Gastrointestinal: normoactive bowel sounds, soft, non-distended Integumentary: normal Extremities: no cyanosis, no edema unable to assess other (unable to assess) Results - Laboratory Findings CBC and BMP: 07/31/18 11:39 07/31/18 11:39 ABG POC ABG pH 7.401 (7.35-7.45) 08/01/18 03:01 POC ABG pCO2 27.9 (35-45) L 08/01/18 03:01 POC ABG pO2 128 (80-105) H 08/01/18 03:01 POC ABG HCO3 17.3 08/01/18 03:01 POC ABG Total CO2 18 08/01/18 03:01 POC ABG O2 Sat 99 08/01/18 03:01 Abnormal lab findings: Abnormal Labs 07/31/18 07/31/18 07/31/18 11:14 11:39 11:39 RDW 16.3 H [place] % (Auto) 8.4 H POC ABG pCO2 POC ABG pO2 Chloride 96.6 L BUN 38 H Creatinine 7.5 H Glucose 103 H POC Glucose 157 H Troponin T Triglycerides HDL Cholesterol Urine WBC (Auto) 07/31/18 07/31/18 07/31/18 12:29 12:34 12:37 RDW [place] % (Auto) POC ABG pCO2 POC ABG pO2 194 H Chloride BUN Creatinine Glucose POC Glucose Troponin T 0.070 H Triglycerides 270 H HDL Cholesterol 31 L Urine WBC (Auto) 114.0 H 08/01/18 08/01/18 03:01 05:15 RDW [place] % (Auto) POC ABG pCO2 27.9 L POC ABG pO2 128 H Chloride BUN Creatinine Glucose POC Glucose 251 H Troponin T Triglycerides HDL Cholesterol Urine WBC (Auto) - Diagnostic Findings Chest x-ray: image reviewed Assessment and Plan 48 y/o female with acute respiratory failure, most likely secondary to altered mental status, will rule out status epilepticus. 1. EEG 2. Patient does not appear to have significant angioedema on my exam. Not on any precipitating medications. Will likely stop steroids and benadryl in light of mental state 3. Restart all home medications 4. Hold sedation 5. Place [place] and Feed patient, nutrition consult placed 6. q6hour FSBS 7. Overall prognosis is guarded. CCT 31 minutes.
[2018-08-01] MEDS: HumaLOG SUB-Q SCH ×2 (13:12→18:42)
[2018-08-01] MEDS: CATAPRES PO SCH (13:12)
[2018-08-01] MEDS: NORVASC PO SCH (13:18)
[2018-08-01] MEDS: HEPARIN SUB-Q SCH ×2 (13:18→22:12)
--- NOTE | 2018-08-01 14:06 | Progress Note ---
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 In the ED patient thought to have angioedema although unsure of etiology, Only new medication is Keppra. Fram chart review, patient has no hx of seizure Patient remains intubated in the ICU with no change in mental status and remains unresponsive despite sedative being turned off. CT head negative for Acute infarct. 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 The aggregate critical care time was [65] minutes. This time is in addition to time spent performing reported procedures but includes the following: [x] Data Review and interpretation [x] Patient assessment and monitoring of vital signs [x] Documentation [x] Medication orders and management History Interval history: Patient seen and examined, remains unresponsive, AND on MVS Hospitalist Physical - Physical exam Narrative exam: VITAL SIGNS: Reviewed. GENERAL: The patient appeared well nourished and normally developed. currently on Mechanical ventilatory support Vital signs as documented. HEAD: No signs of head trauma. EYES: Pupils are equal and reactive EARS: unable to access MOUTH: Oropharynx is normal, ETT in place. NECK: No adenopathy, no JVD. CHEST: Chest with clear breath sounds bilaterally. No wheezes, rales, or rhonchi. CARDIAC: Regular rate and rhythm. S1 and S2, without murmurs, gallops, or rubs. VASCULAR: No Edema. Peripheral pulses normal and equal in all extremities. ABDOMEN: Soft, without detectable tenderness. No sign of distention. No rebound or guarding, and no masses palpated. Bowel Sounds normal. MUSCULOSKELETAL: Extremities without clubbing, cyanosis or edema. NEUROLOGIC EXAM: unresponsive PSYCHIATRIC: unable to access. SKIN: No rash or lesions. - Constitutional Vitals: Temp Pulse Resp BP Pulse Ox 99.6 F 102 H 19 164/78 100 08/01/18 12:00 08/01/18 13:52 08/01/18 12:00 08/01/18 13:52 08/01/18 13:52 General appearance: Present: severe distress Results - Labs CBC & Chem 7: 07/31/18 11:39 07/31/18 11:39 Labs: Laboratory Last Values WBC 9.6 K/mm3 (4.5-11.0) 07/31/18 11:39 RBC 3.89 M/mm3 (3.65-5.03) 07/31/18 11:39 Hgb 11.3 gm/dl (10.1-14.3) 07/31/18 11:39 Hct 35.4 % (30.3-42.9) 07/31/18 11:39 MCV 91 fl (79-97) 07/31/18 11:39 MCH 29 pg (28-32) 07/31/18 11:39 MCHC 32 % (30-34) 07/31/18 11:39 RDW 16.3 % (13.2-15.2) H 07/31/18 11:39 Plt Count 218 K/mm3 (140-440) 07/31/18 11:39 Lymph % (Auto) 30.4 % (13.4-35.0) 07/31/18 11:39 [place] % (Auto) 8.4 % (0.0-7.3) H 07/31/18 11:39 Eos % (Auto) 2.9 % (0.0-4.3) 07/31/18 11:39 Baso % (Auto) 0.8 % (0.0-1.8) 07/31/18 11:39 Lymph # 2.9 K/mm3 (1.2-5.4) 07/31/18 11:39 [place] # 0.8 K/mm3 (0.0-0.8) 07/31/18 11:39 Eos # 0.3 K/mm3 (0.0-0.4) 07/31/18 11:39 Baso # 0.1 K/mm3 (0.0-0.1) 07/31/18 11:39 Seg Neutrophils % 57.5 % (40.0-70.0) 07/31/18 11:39 Seg Neutrophils # 5.5 K/mm3 (1.8-7.7) 07/31/18 11:39 POC ABG pH 7.401 (7.35-7.45) 08/01/18 03:01 POC ABG pCO2 27.9 (35-45) L 08/01/18 03:01 POC ABG pO2 128 (80-105) H 08/01/18 03:01 POC ABG HCO3 17.3 08/01/18 03:01 POC ABG Total CO2 18 08/01/18 03:01 POC ABG O2 Sat 99 08/01/18 03:01 POC ABG Base Excess -7 08/01/18 03:01 FiO2 35 % 08/01/18 03:01 Sodium 139 mmol/L (137-145) 07/31/18 11:39 Potassium 4.6 mmol/L (3.6-5.0) 07/31/18 11:39 Chloride 96.6 mmol/L (98-107) L 07/31/18 11:39 Carbon Dioxide 23 mmol/L (22-30) 07/31/18 11:39 Anion Gap 24 mmol/L 07/31/18 11:39 BUN 38 mg/dL (7-17) H 07/31/18 11:39 Creatinine 7.5 mg/dL (0.7-1.2) H 07/31/18 11:39 Estimated GFR 7 ml/min 07/31/18 11:39 BUN/Creatinine Ratio 5 % 07/31/18 11:39 Glucose 103 mg/dL (65-100) H 07/31/18 11:39 POC Glucose 249 (70-105) H 08/01/18 11:56 Calcium 8.9 mg/dL (8.4-10.2) 07/31/18 11:39 Total Bilirubin 0.20 mg/dL (0.1-1.2) 07/31/18 11:39 Direct Bilirubin < 0.2 mg/dL (0-0.2) 07/31/18 11:39 AST 13 units/L (5-40) 07/31/18 11:39 ALT 9 units/L (7-56) 07/31/18 11:39 Alkaline Phosphatase 120 units/L (35-129) 07/31/18 11:39 Ammonia 36.0 umol/L (25-60) 07/31/18 12:29 Troponin T 0.070 ng/mL (0.00-0.029) H 07/31/18 12:29 Total Protein 7.6 g/dL (6.3-8.2) 07/31/18 11:39 Albumin 4.0 g/dL (3.9-5) 07/31/18 11:39 Albumin/Globulin Ratio 1.1 % 07/31/18 11:39 Triglycerides 270 mg/dL (2-149) H 07/31/18 12:29 Cholesterol 143 mg/dL (50-199) 07/31/18 12:29 LDL Cholesterol Direct 74 mg/dL (50-130) 07/31/18 12:29 HDL Cholesterol 31 mg/dL (40-59) L 07/31/18 12:29 Cholesterol/HDL Ratio 4.61 % 07/31/18 12:29 Urine Color Yellow (Yellow) 07/31/18 12:37 Urine Turbidity Slightly-cloudy (Clear) 07/31/18 12:37 Urine pH 7.0 (5.0-7.0) 07/31/18 12:37 Ur Specific [place] 1.010 (1.003-1.030) 07/31/18 12:37 Urine Protein 100 mg/dl mg/dL (Negative) 07/31/18 12:37 Urine Glucose (UA) 150 mg/dL (Negative) 07/31/18 12:37 Urine Ketones Neg mg/dL (Negative) 07/31/18 12:37 Urine Blood Neg (Negative) 07/31/18 12:37 Urine Nitrite Neg (Negative) 07/31/18 12:37 Urine Bilirubin Neg (Negative) 07/31/18 12:37 Urine Urobilinogen < 2.0 mg/dL (<2.0) 07/31/18 12:37 Ur Leukocyte Esterase Lg (Negative) 07/31/18 12:37 Urine WBC (Auto) 114.0 /HPF (0.0-6.0) H 07/31/18 12:37 Urine RBC (Auto) 13.0 /HPF (0.0-6.0) 07/31/18 12:37 U Epithel Cells (Auto) 1.0 /HPF (0-13.0) 07/31/18 12:37 Urine Bacteria (Auto) 2+ /HPF (Negative) 07/31/18 12:37 Urine HCG, Qual Negative (Negative) 07/31/18 12:37 Urine Opiates Screen Presumptive negative 07/31/18 12:37 Urine Methadone Screen Presumptive negative 07/31/18 12:37 Ur Barbiturates Screen Presumptive negative 07/31/18 12:37 Ur Phencyclidine Scrn Presumptive negative 07/31/18 12:37 Ur Amphetamines Screen Presumptive negative 07/31/18 12:37 U Benzodiazepines Scrn Presumptive negative 07/31/18 12:37 Urine Cocaine Screen Presumptive negative 07/31/18 12:37 U Marijuana (THC) Screen Presumptive negative 07/31/18 12:37 Drugs of Abuse Note Disclamer 07/31/18 12:37
--- NOTE | 2018-08-01 14:07 | XRay Report ---
AP ABDOMEN: HISTORY: Dobbhoff tube placement. The Dobbhoff tube is coiled upon itself in the mid stomach with the distal tip terminating in the cardia of the stomach. The abdominal gas pattern is unremarkable. No masses or organomegaly is identified and there is no gross evidence of free air or fluid. No significant soft tissue calcifications are noted. IMPRESSION: Unremarkable abdomen. Feeding tube as described.
[2018-08-01] MEDS: KEPPRA 750 MG in NACL 0.9% 100 ML IV SCH ×2 (14:52→22:13)
[2018-08-01] MEDS ORDERED: SODIUM BICARBONATE FEEDTUBE PRN ×4 (14:57→16:27)
[2018-08-01] MEDS ORDERED: PANCREAZE DR 10,500 UNIT FEEDTUBE PRN ×4 (14:57→16:27)
[2018-08-01] MEDS ORDERED: SIMPLE SYRUP FEEDTUBE PRN ×8 (14:57→16:27)
[2018-08-01] MEDS: SODIUM BICARBONATE PO SCH ×2 (15:00→22:13)
[2018-08-01] MEDS ORDERED: KEPPRA PO SCH (22:00)
[2018-08-01] MEDS ORDERED: LANTUS SUB-Q SCH (22:00)
[2018-08-02] MEDS: HumaLOG SUB-Q SCH ×4 (00:55→18:28)
[2018-08-02] MEDS: SOLU-Medrol IV SCH (00:55)
[2018-08-02] MEDS: CATAPRES PO SCH ×3 (05:53→14:34)
[2018-08-02] MEDS: HEPARIN SUB-Q SCH ×3 (05:55→21:38)
--- NOTE | 2018-08-02 07:21 | Progress Note ---
Assessment and Plan - Patient Problems (1) ESRD (end stage renal disease) on dialysis Current Visit: Yes Status: Chronic Plan to address problem: Placed orders for HD on a inpatient TTS schedule. (2) Acute respiratory failure with hypoxia Current Visit: Yes Status: Acute Plan to address problem: Patient remains intubated. Further management per ICU/pulmonology. (3) Angioedema Current Visit: Yes Status: Acute Qualifiers: Encounter type: initial encounter Qualified Code(s): T78.3XXA - Angioneurotic edema, initial encounter Plan to address problem: Intubated for airway protection. Management per primary/ICU team. (4) Encephalopathy Current Visit: No Status: Acute Plan to address problem: Remains intubated and sedated. Neurochecks per protocol. CT head without any acute abnormalities. EEG report pending. (5) Hypertensive chronic kidney disease with stage 5 chronic kidney disease or end stage renal disease Current Visit: Yes Status: Chronic Plan to address problem: Will continue to monitor on current regimen. (6) Type 2 diabetes mellitus with diabetic chronic kidney disease Current Visit: No Status: Chronic Qualifiers: Diabetes mellitus long goods drier insulin use: with long goods drier use Chronic kidney disease stage: on chronic dialysis Qualified Code(s): E11.22 - Type 2 diabetes mellitus with diabetic chronic kidney disease; N18.6 - End stage renal disease; Z79.4 - supervisor intermediates (current) use of insulin; Z99.2 - Dependence on renal dialysis Plan to address problem: Management per primary team. Subjective Date of service: 08/02/18 Principal diagnosis: Angiodema and no IV access Interval history: No acute issues. She is more awake this morning, spontaneously opes eyes, responds to verbal and tactile stimuli. Off sedation. Received HD yesterday, tolerating UF 1.5L. Labs pending this am. Objective - Vital Signs Vital signs: Vital Signs - 12hr 08/01/18 08/01/18 08/01/18 19:30 19:45 19:49 Temperature 98.5 F Pulse Rate 102 H 104 H Respiratory 16 16 Rate Respiratory Rate [Back] Respiratory Rate [Leg] Blood Pressure 122/68 124/76 O2 Sat by Pulse 100 100 Oximetry O2 Sat by Pulse Oximetry [ Anterior Bilateral Throughout] 08/01/18 08/01/18 08/01/18 20:00 20:01 20:12 Temperature Pulse Rate 106 H 106 H Respiratory 16 16 Rate Respiratory Rate [Back] Respiratory Rate [Leg] Blood Pressure 134/78 134/78 O2 Sat by Pulse 100 100 100 Oximetry O2 Sat by Pulse Oximetry [ Anterior Bilateral Throughout] 08/01/18 08/01/18 08/01/18 20:15 20:30 20:34 Temperature 97.8 F Pulse Rate 107 H 105 H 105 H Respiratory 16 16 16 Rate Respiratory Rate [Back] Respiratory Rate [Leg] Blood Pressure 154/85 148/81 124/76 O2 Sat by Pulse 100 100 Oximetry O2 Sat by Pulse 100 Oximetry [ Anterior Bilateral Throughout] 08/01/18 08/01/18 08/01/18 20:45 20:56 21:00 Temperature Pulse Rate 105 H 106 H 102 H Respiratory 16 15 16 Rate Respiratory Rate [Back] Respiratory Rate [Leg] Blood Pressure 151/82 151/82 151/82 O2 Sat by Pulse 100 100 100 Oximetry O2 Sat by Pulse Oximetry [ Anterior Bilateral Throughout] 08/01/18 08/01/18 08/01/18 21:15 21:30 21:45 Temperature Pulse Rate 102 H 103 H 100 H Respiratory 16 14 16 Rate Respiratory Rate [Back] Respiratory Rate [Leg] Blood Pressure 164/78 171/86 153/72 O2 Sat by Pulse 100 100 100 Oximetry O2 Sat by Pulse Oximetry [ Anterior Bilateral Throughout] 08/01/18 08/01/18 08/01/18 22:00 22:15 22:30 Temperature Pulse Rate 97 H 94 H 105 H Respiratory 16 16 15 Rate Respiratory 16 Rate [Back] Respiratory 16 Rate [Leg] Blood Pressure 118/71 126/67 187/90 O2 Sat by Pulse 100 100 100 Oximetry O2 Sat by Pulse Oximetry [ Anterior Bilateral Throughout] 08/01/18 08/01/18 08/01/18 22:45 23:00 23:15 Temperature Pulse Rate 97 H 92 H 90 Respiratory 16 16 16 Rate Respiratory Rate [Back] Respiratory Rate [Leg] Blood Pressure 135/66 99/56 96/49 O2 Sat by Pulse 100 100 100 Oximetry O2 Sat by Pulse Oximetry [ Anterior Bilateral Throughout] 08/01/18 08/01/18 08/01/18 23:16 23:30 23:42 Temperature 97.5 F L Pulse Rate 90 89 Respiratory 16 Rate Respiratory Rate [Back] Respiratory Rate [Leg] Blood Pressure 96/49 101/54 O2 Sat by Pulse 100 100 Oximetry O2 Sat by Pulse Oximetry [ Anterior Bilateral Throughout] 08/01/18 08/02/18 08/02/18 23:45 00:00 00:15 Temperature Pulse Rate 89 87 88 Respiratory 16 16 16 Rate Respiratory Rate [Back] Respiratory Rate [Leg] Blood Pressure 93/52 99/51 95/55 O2 Sat by Pulse 100 100 100 Oximetry O2 Sat by Pulse Oximetry [ Anterior Bilateral Throughout] 08/02/18 08/02/18 08/02/18 00:30 00:45 01:00 Temperature Pulse Rate 91 H 87 103 H Respiratory 16 16 21 Rate Respiratory Rate [Back] Respiratory Rate [Leg] Blood Pressure 93/57 103/58 160/97 O2 Sat by Pulse 100 100 100 Oximetry O2 Sat by Pulse Oximetry [ Anterior Bilateral Throughout] 08/02/18 08/02/18 08/02/18 01:15 01:30 01:45 Temperature Pulse Rate 105 H 102 H 102 H Respiratory 16 16 16 Rate Respiratory Rate [Back] Respiratory Rate [Leg] Blood Pressure 175/88 137/87 156/82 O2 Sat by Pulse 100 100 100 Oximetry O2 Sat by Pulse Oximetry [ Anterior Bilateral Throughout] 08/02/18 08/02/18 08/02/18 02:00 02:15 02:30 Temperature Pulse Rate 100 H 106 H 106 H Respiratory 16 15 17 Rate Respiratory Rate [Back] Respiratory Rate [Leg] Blood Pressure 144/75 139/89 164/94 O2 Sat by Pulse 100 100 100 Oximetry O2 Sat by Pulse Oximetry [ Anterior Bilateral Throughout] 08/02/18 08/02/18 08/02/18 02:45 03:00 03:15 Temperature Pulse Rate 104 H 101 H 97 H Respiratory 13 16 16 Rate Respiratory Rate [Back] Respiratory Rate [Leg] Blood Pressure 164/83 141/82 146/78 O2 Sat by Pulse 100 100 Oximetry O2 Sat by Pulse Oximetry [ Anterior Bilateral Throughout] 08/02/18 08/02/18 08/02/18 03:30 03:45 04:00 Temperature 99.1 F Pulse Rate 91 H 98 H 96 H Respiratory 16 16 16 Rate Respiratory Rate [Back] Respiratory Rate [Leg] Blood Pressure 116/57 140/83 150/77 O2 Sat by Pulse 100 100 100 Oximetry O2 Sat by Pulse Oximetry [ Anterior Bilateral Throughout] 08/02/18 08/02/1819 04:05 04:15 04:30 Temperature Pulse Rate 107 H 103 H 100 H Respiratory 16 16 Rate Respiratory Rate [Back] Respiratory Rate [Leg] Blood Pressure 150/77 161/87 150/92 O2 Sat by Pulse 100 100 100 Oximetry O2 Sat by Pulse Oximetry [ Anterior Bilateral Throughout] 08/02/18 08/02/18 08/02/18 04:45 05:00 05:15 Temperature Pulse Rate 100 H 98 H 99 H Respiratory 16 16 16 Rate Respiratory Rate [Back] Respiratory Rate [Leg] Blood Pressure 150/83 140/84 163/88 O2 Sat by Pulse 99 98 100 Oximetry O2 Sat by Pulse Oximetry [ Anterior Bilateral Throughout] 08/02/18 08/02/18 05:53 05:54 Temperature Pulse Rate 110 H 101 H Respiratory Rate Respiratory Rate [Back] Respiratory Rate [Leg] Blood Pressure 164/87 152/75 O2 Sat by Pulse Oximetry O2 Sat by Pulse Oximetry [ Anterior Bilateral Throughout] - General Appearance General appearance: well-nourished, appears stated age, intubated EENT: ATNC, PERRL Neck: no JVD, no thyromegaly Respiratory: Present: Clear to Ascultation, Normal Exam Cardiology: regular, S1S2 Gastrointestinal: normal, normoactive bowel sounds Integumentary: no rash, warm and dry Neurologic: no focal deficit Musculoskeletal: other (-edema ) Psychiatric: cooperative - Lab 07/31/18 11:39 07/31/18 11:39 Most recent lab results Calcium 8.9 mg/dL (8.4-10.2) 07/31/18 11:39 - Allied health notes Allied health notes reviewed: nursing Medications & Allergies - Medications Allergies/Adverse Reactions: Allergies ibuprofen Allergy (Verified 06/24/17 17:09) Rash Home Medications: Home Medications Medication Instructions Recorded Confirmed Last Taken Type Amlodipine Besylate 10 mg PO DAILY 08/27/15 08/10/17 08/09/17 History AtorvaSTATin [Lipitor] 40 mg PO DAILY 08/27/15 08/10/17 08/09/17 History Gabapentin 300 mg PO TID 08/27/15 08/10/17 08/09/17 History cloNIDine [Catapres] 0.4 mg PO TID #90 tablet 09/21/17 02/21/18 02/21/18 Rx HumaLOG VIAL 15 unit SQ TID 03/19/17 08/10/17 08/09/17 History Metoclopramide 10 mg PO BID 03/19/17 08/10/17 08/09/17 History Sodium Bicarbonate 650 mg PO BID 03/19/17 08/10/17 08/09/17 History oxyCODONE /ACETAMINOPHEN [Percocet 1 tab PO Q6HR PRN #14 tablet 07/28/17 08/10/17 08/09/17 Rx 5/325] HYDROcodone/APAP 5-325 [[place] 1 each PO Q4HR PRN #30 tablet 08/10/17 Unknown Rx 5-325 mg TAB] levETIRAcetam [Keppra TAB] 500 mg PO BID #60 tablet 07/24/18 Unknown Rx Active Medications: Generic Name Dose Route Start Last Admin Trade Name Freq PRN Reason Stop Dose Admin Albumin Human 12.5 gm 07/31/18 21:53 Alburx 25% (Albumin) IV DESIREE PRN Hypotension Amlodipine Besylate 10 mg 08/01/18 12:00 08/01/18 13:18 Norvasc PO 10 mg DAILY LORENE Administration Lipase/Protease/Amylase 1 each 08/01/18 14:[address] 10,500 Unit FEEDTUBE PRN PRN For Clogged Feeding Tube Atorvastatin Calcium 40 mg 08/01/18 14:30 08/01/18 15:00 Lipitor PO 40 mg DAILY LORENE Administration Clonidine HCl 0.1 mg 08/01/18 14:00 08/02/18 05:54 Catapres PO 0.1 mg Q8HR LORENE Administration Famotidine 20 mg 08/01/18 10:00 08/01/18 10:54 Pepcid IV 20 mg DAILY LORENE Administration Fentanyl 25 mcg 08/01/18 11:32 Sublimaze IV Q2H PRN Pain , Severe (7-10) Heparin Sodium (Porcine) 5,000 unit 08/01/18 14:00 08/02/18 05:55 Heparin SUB-Q 5,000 unit Q8HR LORENE Administration Hydrophilic Ointment 1 applic 07/31/18 12:00 Vaseline Lip Therapy TP Q2HR PRN Dry Lips Ceftriaxone Sodium 1 gm in 50 mls @ 100 mls/hr 08/01/18 10:00 08/01/18 10:54 Rocephin/Ns 1 Gm/50 Ml IV 08/07/18 10:29 100 mls/hr Q24HR LORENE Administration Protocol Sodium Chloride 100 mls @ 999 mls/hr 07/31/18 21:53 Nacl 0.9% IV DESIREE PRN Hypotension Levetiracetam 750 mg/ Sodium 107.5 mls @ 400 mls/hr 08/01/18 15:00 08/01/18 22:13 Chloride IV 400 mls/hr Q12HR LORENE Administration Insulin Glargine 20 units 08/01/18 22:00 08/01/18 22:13 Lantus SUB-Q 20 units QHS LORENE Administration Insulin Human Lispro 0 unit 08/01/18 12:00 08/02/18 05:55 Humalog SUB-Q 6 unit Q6HR LORENE Administration Protocol Lorazepam 1 mg 08/01/18 11:32 Ativan IV Q4H PRN Agitation Methylprednisolone Sodium Succinate 40 mg 08/01/18 00:00 08/02/18 00:55 Solu-Medrol IV 40 mg Q12H LORENE Administration Multi-Ingred Cream/Lotion/Oil/Oint 1 applic 07/31/18 12:00 Artificial Tears Ophth Oint OU Q4HR PRN Dry Eye(s) Simple Syrup 15 ml 08/01/18 14:57 Simple Syrup FEEDTUBE PRN PRN Hypoglycemia Simple Syrup 30 ml 08/01/18 14:57 Simple Syrup FEEDTUBE PRN PRN Hypoglycemia Sodium Bicarbonate 650 mg 08/01/18 15:00 08/01/18 22:13 Sodium Bicarbonate PO 650 mg BID LORENE Administration Sodium Bicarbonate 325 mg 08/01/18 14:57 Sodium Bicarbonate FEEDTUBE PRN PRN For Clogged Feeding Tube Sodium Chloride 10 ml 07/31/18 22:00 08/01/18 10:54 Sodium Chloride Flush Syringe 10 Ml IV 10 ml BID LORENE Administration Sodium Chloride 10 ml 07/31/18 13:28 Sodium Chloride Flush Syringe 10 Ml IV PRN PRN LINE FLUSH
[2018-08-02] MEDS: DIPRIVAN 10 MG/ML 1,000 MG/100 ML BOTTLE IV SCH (09:23)
[2018-08-02] MEDS: NORVASC PO SCH (09:25)
[2018-08-02] MEDS: KEPPRA 750 MG in NACL 0.9% 100 ML IV SCH ×2 (09:25→21:34)
[2018-08-02] MEDS: PEPCID IV SCH (09:25)
[2018-08-02] MEDS: SODIUM BICARBONATE PO SCH ×2 (09:25→21:34)
[2018-08-02] MEDS: ROCEPHIN/NS 1 GM/50 ML 1 GM/50 ML BAG IV SCH (09:26)
[2018-08-02] MEDS ORDERED: INSULIN LISPRO SQ SCH (10:25)
--- NOTE | 2018-08-02 10:27 | Progress Note ---
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 In the ED patient thought to have angioedema although unsure of etiology, Only new medication is Keppra. Fram chart review, patient has no hx of seizure Patient remains intubated in the ICU with no change in mental status and remains unresponsive despite sedative being turned off. CT head negative for Acute infarct. shows chronic lacunar infarct CXR unremarkable except for ET tube Acute Metabolic Encephalopathy Status Epilepticus -Noted on EEG. 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 The aggregate critical care time was [65] minutes. This time is in addition to time spent performing reported procedures but includes the following: [x] Data Review and interpretation [x] Patient assessment and monitoring of vital signs [x] Documentation [x] Medication orders and management History Interval history: Patient seen and examined, remains on MVS, Opened her eyes on verbal stimuli and attempted to squeeze my hand on command Hospitalist Physical - Physical exam Narrative exam: VITAL SIGNS: Reviewed. GENERAL: The patient appeared well nourished and normally developed. currently on Mechanical ventilatory support Vital signs as documented. HEAD: No signs of head trauma. EYES: Pupils are equal and reactive EARS: unable to access MOUTH: Oropharynx is normal, ETT in place. NECK: No adenopathy, no JVD. CHEST: Chest with clear breath sounds bilaterally. No wheezes, rales, or rhonchi. CARDIAC: Regular rate and rhythm. S1 and S2, without murmurs, gallops, or rubs. VASCULAR: No Edema. Peripheral pulses normal and equal in all extremities. ABDOMEN: Soft, without detectable tenderness. No sign of distention. No re bound or guarding, and no masses palpated. Bowel Sounds normal. MUSCULOSKELETAL: Extremities without clubbing, cyanosis or edema. NEUROLOGIC EXAM: awake, appears to attempt to respond, but no clearity yet. PSYCHIATRIC: unable to access. SKIN: No rash or lesions. - Constitutional Vitals: Temp Pulse Resp BP Pulse Ox 99.4 F 98 H 12 136/73 100 08/02/18 08:00 08/02/18 09:25 08/02/18 08:00 08/02/18 09:25 08/02/18 08:23 General appearance: Present: severe distress Results - Labs CBC & Chem 7: 07/31/18 11:39 07/31/18 11:39 Labs: Laboratory Last Values WBC 9.6 K/mm3 (4.5-11.0) 07/31/18 11:39 RBC 3.89 M/mm3 (3.65-5.03) 07/31/18 11:39 Hgb 11.3 gm/dl (10.1-14.3) 07/31/18 11:39 Hct 35.4 % (30.3-42.9) 07/31/18 11:39 MCV 91 fl (79-97) 07/31/18 11:39 MCH 29 pg (28-32) 07/31/18 11:39 MCHC 32 % (30-34) 07/31/18 11:39 RDW 16.3 % (13.2-15.2) H 07/31/18 11:39 Plt Count 218 K/mm3 (140-440) 07/31/18 11:39 Lymph % (Auto) 30.4 % (13.4-35.0) 07/31/18 11:39 [place] % (Auto) 8.4 % (0.0-7.3) H 07/31/18 11:39 Eos % (Auto) 2.9 % (0.0-4.3) 07/31/18 11:39 Baso % (Auto) 0.8 % (0.0-1.8) 07/31/18 11:39 Lymph # 2.9 K/mm3 (1.2-5.4) 07/31/18 11:39 [place] # 0.8 K/mm3 (0.0-0.8) 07/31/18 11:39 Eos # 0.3 K/mm3 (0.0-0.4) 07/31/18 11:39 Baso # 0.1 K/mm3 (0.0-0.1) 07/31/18 11:39 Seg Neutrophils % 57.5 % (40.0-70.0) 07/31/18 11:39 Seg Neutrophils # 5.5 K/mm3 (1.8-7.7) 07/31/18 11:39 POC ABG pH 7.485 (7.35-7.45) H 08/02/18 04:44 POC ABG pCO2 34.6 (35-45) L 08/02/18 04:44 POC ABG pO2 93 (80-105) 08/02/18 04:44 POC ABG HCO3 26.1 08/02/18 04:44 POC ABG Total CO2 27 08/02/18 04:44 POC ABG O2 Sat 98 08/02/18 04:44 POC ABG Base Excess 3 08/02/18 04:44 FiO2 35 % 08/02/18 04:44 Sodium 139 mmol/L (137-145) 07/31/18 11:39 Potassium 4.6 mmol/L (3.6-5.0) 07/31/18 11:39 Chloride 96.6 mmol/L (98-107) L 07/31/18 11:39 Carbon Dioxide 23 mmol/L (22-30) 07/31/18 11:39 Anion Gap 24 mmol/L 07/31/18 11:39 BUN 38 mg/dL (7-17) H 07/31/18 11:39 Creatinine 7.5 mg/dL (0.7-1.2) H 07/31/18 11:39 Estimated GFR 7 ml/min 07/31/18 11:39 BUN/Creatinine Ratio 5 % 07/31/18 11:39 Glucose 103 mg/dL (65-100) H 07/31/18 11:39 POC Glucose 325 (70-105) H 08/02/18 05:29 Calcium 8.9 mg/dL (8.4-10.2) 07/31/18 11:39 Total Bilirubin 0.20 mg/dL (0.1-1.2) 07/31/18 11:39 Direct Bilirubin < 0.2 mg/dL (0-0.2) 07/31/18 11:39 AST 13 units/L (5-40) 07/31/18 11:39 ALT 9 units/L (7-56) 07/31/18 11:39 Alkaline Phosphatase 120 units/L (35-129) 07/31/18 11:39 Ammonia 36.0 umol/L (25-60) 07/31/18 12:29 Troponin T 0.070 ng/mL (0.00-0.029) H 07/31/18 12:29 Total Protein 7.6 g/dL (6.3-8.2) 07/31/18 11:39 Albumin 4.0 g/dL (3.9-5) 07/31/18 11:39 Albumin/Globulin Ratio 1.1 % 07/31/18 11:39 Triglycerides 270 mg/dL (2-149) H 07/31/18 12:29 Cholesterol 143 mg/dL (50-199) 07/31/18 12:29 LDL Cholesterol Direct 74 mg/dL (50-130) 07/31/18 12:29 HDL Cholesterol 31 mg/dL (40-59) L 07/31/18 12:29 Cholesterol/HDL Ratio 4.61 % 07/31/18 12:29 Urine Color Yellow (Yellow) 07/31/18 12:37 Urine Turbidity Slightly-cloudy (Clear) 07/31/18 12:37 Urine pH 7.0 (5.0-7.0) 07/31/18 12:37 Ur Specific [place] 1.010 (1.003-1.030) 07/31/18 12:37 Urine Protein 100 mg/dl mg/dL (Negative) 07/31/18 12:37 Urine Glucose (UA) 150 mg/dL (Negative) 07/31/18 12:37 Urine Ketones Neg mg/dL (Negative) 07/31/18 12:37 Urine Blood Neg (Negative) 07/31/18 12:37 Urine Nitrite Neg (Negative) 07/31/18 12:37 Urine Bilirubin Neg (Negative) 07/31/18 12:37 Urine Urobilinogen < 2.0 mg/dL (<2.0) 07/31/18 12:37 Ur Leukocyte Esterase Lg (Negative) 07/31/18 12:37 Urine WBC (Auto) 114.0 /HPF (0.0-6.0) H 07/31/18 12:37 Urine RBC (Auto) 13.0 /HPF (0.0-6.0) 07/31/18 12:37 U Epithel Cells (Auto) 1.0 /HPF (0-13.0) 07/31/18 12:37 Urine Bacteria (Auto) 2+ /HPF (Negative) 07/31/18 12:37 Urine HCG, Qual Negative (Negative) 07/31/18 12:37 Urine Opiates Screen Presumptive negative 07/31/18 12:37 Urine Methadone Screen Presumptive negative 07/31/18 12:37 Ur Barbiturates Screen Presumptive negative 07/31/18 12:37 Ur Phencyclidine Scrn Presumptive negative 07/31/18 12:37 Ur Amphetamines Screen Presumptive negative 07/31/18 12:37 U Benzodiazepines Scrn Presumptive negative 07/31/18 12:37 Urine Cocaine Screen Presumptive negative 07/31/18 12:37 U Marijuana (THC) Screen Presumptive negative 07/31/18 12:37 Drugs of Abuse Note Disclamer 07/31/18 12:37 Nutrition/Malnutrition Assess - Dietary Evaluation Nutrition/Malnutrition Findings: Nutrition Notes Start: 08/01/18 13:28 Freq: Status: Active Protocol: Document 08/01/18 13:28 CT (Rec: 08/01/18 14:29 CT [id number]) Co-Sign 08/01/18 13:28 NHALL Nutrition Notes Need for Assessment 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 Burn Absent Trauma Absent #1 Nutrition Diagnosis Inadequate oral intake Etiology vent status As Evidenced by Signs and Symptoms pt NPO Is patient on ventilator? Yes Is Patient Ambulatory and/or Out of Bed No REE-([place] Jeor-confined to bed) 1695.696 Kcal/Kg value to use for calculation 15 Approximate Energy Requirements Using 1209 kcal/Kg Calculation Used for Recommendations Kcal/kg Additional Notes PRO: 104g/daily (2g/kg IBW, IBW = 52kg) Fluid: 1ml/kcal Nutrition Intervention Change Diet Order: TF Nutrition Support: Vital High Protein at 50ml/hr. Water flush of 50mls q4h Kcal 1,200 Protein (gm) 105 Carbohydrates (gm) 134 Fluid (mL) 1,003 Goal #1 TF tolerance Goal #2 TF to meet at least 80% of kcal and PRO needs Anticipated Discharge Needs: Unable to determine at this time. Follow-Up By: 08/03/18 Additional Comments F/U: New TF, renal labs, formula change
[2018-08-02] MEDS: SODIUM CHLORIDE FLUSH SYRINGE 10 ML IV SCH ×3 (10:46→21:35)
--- NOTE | 2018-08-02 11:10 | Progress Note ---
Assessment and Plan 48 y/o female with acute respiratory failure, most likely secondary to altered mental status, found to be in status. 1. Diprovan now, will repeat EEG. Mental status is better so have to assume that not in status but need to be sure. 2. This is likely not angioedema, stop steroids and benadry. continue pepcid for GI prophylaxis. 3. Restart all home medications 4. Hold sedation 5. PDobb-Eloisa and Feed patient, nutrition consult placed, tolerating feeds 6. q6hour FSBS 7. Neurology consult for further recommendations in regards to status. CCT 31 minutes. Subjective Date of service: 08/02/18 Principal diagnosis: Angiodema and no IV access Interval history: Patient was found to be in status yesterday. Not notified by reading physician. Patient did get a dose of keppra last night that may have aborted this. Propofol was ordered by myself this am upon finding out about study. Patient is more awake at bedside. No family present. Still not following commands. Objective Vital Signs - 12hr 08/01/18 08/01/18 08/01/18 23:15 23:16 23:30 Temperature Pulse Rate 90 90 89 Respiratory 16 16 Rate Blood Pressure 96/49 96/49 101/54 O2 Sat by Pulse 100 100 100 Oximetry 08/01/18 08/01/18 08/02/18 23:42 23:45 00:00 Temperature 97.5 F L Pulse Rate 89 87 Respiratory 16 16 Rate Blood Pressure 93/52 99/51 O2 Sat by Pulse 100 100 Oximetry 08/02/18 08/02/18 08/02/18 00:15 00:30 00:45 Temperature Pulse Rate 88 91 H 87 Respiratory 16 16 16 Rate Blood Pressure 95/55 93/57 103/58 O2 Sat by Pulse 100 100 100 Oximetry 08/02/18 08/02/18 08/02/18 01:00 01:15 01:30 Temperature Pulse Rate 103 H 105 H 102 H Respiratory 21 16 16 Rate Blood Pressure 160/97 175/88 137/87 O2 Sat by Pulse 100 100 100 Oximetry 08/02/18 08/02/18 08/02/18 01:45 02:00 02:15 Temperature Pulse Rate 102 H 100 H 106 H Respiratory 16 16 15 Rate Blood Pressure 156/82 144/75 139/89 O2 Sat by Pulse 100 100 100 Oximetry 08/02/18 08/02/18 08/02/18 02:30 02:45 03:00 Temperature Pulse Rate 106 H 104 H 101 H Respiratory 17 13 16 Rate Blood Pressure 164/94 164/83 141/82 O2 Sat by Pulse 100 100 Oximetry 08/02/18 08/02/18 08/02/18 03:15 03:30 03:45 Temperature 99.1 F Pulse Rate 97 H 91 H 98 H Respiratory 16 16 16 Rate Blood Pressure 146/78 116/57 140/83 O2 Sat by Pulse 100 100 100 Oximetry 08/02/18 08/02/18 08/02/18 04:00 04:05 04:15 Temperature Pulse Rate 96 H 107 H 103 H Respiratory 16 16 Rate Blood Pressure 150/77 150/77 161/87 O2 Sat by Pulse 100 100 100 Oximetry 08/02/18 08/02/18 08/02/18 04:30 04:45 05:00 Temperature Pulse Rate 100 H 100 H 98 H Respiratory 16 16 16 Rate Blood Pressure 150/92 150/83 140/84 O2 Sat by Pulse 100 99 98 Oximetry 08/02/18 08/02/18 08/02/18 05:15 05:30 05:46 Temperature Pulse Rate 99 H 101 H 97 H Respiratory 16 16 16 Rate Blood Pressure 163/88 157/72 152/75 O2 Sat by Pulse 100 100 100 Oximetry 08/02/18 08/02/18 08/02/18 05:53 05:54 06:00 Temperature Pulse Rate 110 H 101 H 99 H Respiratory 16 Rate Blood Pressure 164/87 152/75 144/85 O2 Sat by Pulse 100 Oximetry 08/02/18 08/02/18 08/02/18 06:15 06:30 06:46 Temperature Pulse Rate 97 H 93 H 88 Respiratory 16 16 16 Rate Blood Pressure 146/79 154/80 122/57 O2 Sat by Pulse 100 100 100 Oximetry 08/02/18 08/02/18 08/02/18 07:00 07:16 07:30 Temperature Pulse Rate 87 99 H 96 H Respiratory 16 12 12 Rate Blood Pressure 108/59 154/91 138/72 O2 Sat by Pulse 100 100 100 Oximetry 08/02/18 08/02/18 08/02/18 08:00 08:23 09:25 Temperature 99.4 F Pulse Rate 100 H 98 H Respiratory 12 Rate Blood Pressure 152/104 136/73 O2 Sat by Pulse 100 100 Oximetry Constitutional: no acute distress, alert, other (morbidly obese) Eyes: non-icteric ENT: other (orally intubated and sedated) Neck: supple Effort: normal Ascultation: Bilateral: clear, diminished breath sounds Percussion: Bilateral: not dull Cardiovascular: regular rate and rhythm Gastrointestinal: normoactive bowel sounds, soft, non-distended Integumentary: normal Extremities: no cyanosis, no edema Neurologic: unable to assess Psychiatric: other (unable to assess) CBC and BMP: 07/31/18 11:39 07/31/18 11:39 ABG, PT/INR, D-dimer: ABG POC ABG pH 7.485 (7.35-7.45) H 08/02/18 04:44 POC ABG pCO2 34.6 (35-45) L 08/02/18 04:44 POC ABG pO2 93 (80-105) 08/02/18 04:44 POC ABG HCO3 26.1 08/02/18 04:44 POC ABG Total CO2 27 08/02/18 04:44 POC ABG O2 Sat 98 08/02/18 04:44 Abnormal lab findings: Abnormal Labs 07/31/18 07/31/18 07/31/18 11:14 11:39 11:39 RDW 16.3 H [place] % (Auto) 8.4 H POC ABG pH POC ABG pCO2 POC ABG pO2 Chloride 96.6 L BUN 38 H Creatinine 7.5 H Glucose 103 H POC Glucose 157 H Troponin T Triglycerides HDL Cholesterol Urine WBC (Auto) 07/31/18 07/31/18 07/31/18 12:29 12:34 12:37 RDW [place] % (Auto) POC ABG pH POC ABG pCO2 POC ABG pO2 194 H Chloride BUN Creatinine Glucose POC Glucose Troponin T 0.070 H Triglycerides 270 H HDL Cholesterol 31 L Urine WBC (Auto) 114.0 H 08/01/18 08/01/18 08/01/18 03:01 05:15 11:56 RDW [place] % (Auto) POC ABG pH POC ABG pCO2 27.9 L POC ABG pO2 128 H Ch[place] BUN Creatinine Glucose POC Glucose 251 H 249 H Troponin T Triglycerides HDL Cholesterol Urine WBC (Auto) 02/06/0708/01/18 08/02/18 17:36 23:32 04:44 RDW [place] % (Auto) POC ABG pH 7.485 H POC ABG pCO2 34.6 L POC ABG pO2 [place] BUN Creatinine Glucose POC Glucose 205 H 273 H Troponin T Triglycerides HDL Cholesterol Urine WBC (Auto) 08/02/18 05:29 RDW [place] % (Auto) POC ABG pH POC ABG pCO2 POC ABG pO2 [place]lor[place] BUN Creatinine Glucose POC Glucose 325 H Troponin T Triglycerides HDL Cholesterol Urine WBC (Auto) Allied health notes reviewed: nursing
--- NOTE | 2018-08-02 13:30 | Progress Note ---
Subjective Date of service: 08/02/18 Principal diagnosis: Angiodema and no IV access Interval history: EEG showed evidence of severe continouse epileptic activity my mechanisms at play producing status seizures very poor prognosis as this is usually agonal activity agree with management plan as outlined Objective - Vital Sign Vital Signs - 12hr 08/02/18 08/02/18 08/02/18 01:30 01:45 02:00 Temperature Pulse Rate 102 H 102 H 100 H Respiratory 16 16 16 Rate Respiratory Rate [Back] Respiratory Rate [Leg] Blood Pressure 137/87 156/82 144/75 O2 Sat by Pulse 100 100 100 Oximetry 08/02/18 08/02/18 08/02/18 02:15 02:30 02:45 Temperature Pulse Rate 106 H 106 H 104 H Respiratory 15 17 13 Rate Respiratory Rate [Back] Respiratory Rate [Leg] Blood Pressure 139/89 164/94 164/83 O2 Sat by Pulse 100 100 Oximetry 08/02/18 08/02/18 08/02/18 03:00 03:15 03:30 Temperature Pulse Rate 101 H 97 H 91 H Respiratory 16 16 16 Rate Respiratory Rate [Back] Respiratory Rate [Leg] Blood Pressure 141/82 146/78 116/57 O2 Sat by Pulse 100 100 100 Oximetry 08/02/18 08/02/18 08/02/18 03:45 04:00 04:05 Temperature 99.1 F Pulse Rate 98 H 96 H 107 H Respiratory 16 16 Rate Respiratory Rate [Back] Respiratory Rate [Leg] Blood Pressure 140/83 150/77 150/77 O2 Sat by Pulse 100 100 100 Oximetry 08/02/18 08/02/18 08/02/18 04:15 04:30 04:45 Temperature Pulse Rate 103 H 100 H 100 H Respiratory 16 16 16 Rate Respiratory Rate [Back] Respiratory Rate [Leg] Blood Pressure 161/87 150/92 150/83 O2 Sat by Pulse 100 100 99 Oximetry 08/02/18 08/02/18 08/02/18 05:00 05:15 05:30 Temperature Pulse Rate 98 H 99 H 101 H Respiratory 16 16 16 Rate Respiratory Rate [Back] Respiratory Rate [Leg] Blood Pressure 140/84 163/88 157/72 O2 Sat by Pulse 98 100 100 Oximetry 08/02/18 08/02/18 08/02/18 05:46 05:53 05:54 Temperature Pulse Rate 97 H 110 H 101 H Respiratory 16 Rate Respiratory Rate [Back] Respiratory Rate [Leg] Blood Pressure 152/75 164/87 152/75 O2 Sat by Pulse 100 Oximetry 08/02/18 08/02/18 08/02/18 06:00 06:15 06:30 Temperature Pulse Rate 99 H 97 H 93 H Respiratory 16 16 16 Rate Respiratory Rate [Back] Respiratory Rate [Leg] Blood Pressure 144/85 146/79 154/80 O2 Sat by Pulse 100 100 100 Oximetry 08/02/18 08/02/18 08/02/18 06:46 07:00 07:16 Temperature Pulse Rate 88 87 99 H Respiratory 16 16 12 Rate Respiratory Rate [Back] Respiratory Rate [Leg] Blood Pressure 122/57 108/59 154/91 O2 Sat by Pulse 100 100 100 Oximetry 08/02/18 08/02/18 08/02/18 07:30 07:45 08:00 Temperature 99.4 F Pulse Rate 96 H 95 H 93 H Respiratory 12 12 12 Rate Respiratory Rate [Back] Respiratory Rate [Leg] Blood Pressure 138/72 138/70 132/68 O2 Sat by Pulse 100 100 100 Oximetry 08/02/18 08/02/18 08/02/18 08:15 08:23 08:30 Temperature Pulse Rate 92 H 100 H 108 H Respiratory 12 14 Rate Respiratory Rate [Back] Respiratory Rate [Leg] Blood Pressure 132/62 152/104 152/104 O2 Sat by Pulse 100 100 100 Oximetry 08/02/18 08/02/18 08/02/18 08:45 09:00 09:15 Temperature Pulse Rate 104 H 101 H 98 H Respiratory 12 12 12 Rate Respiratory Rate [Back] Respiratory Rate [Leg] Blood Pressure 132/69 140/75 136/73 O2 Sat by Pulse 100 100 100 Oximetry 08/02/18 08/02/18 08/02/18 09:25 09:30 09:45 Temperature Pulse Rate 98 H 97 H 98 H Respiratory 12 12 Rate Respiratory Rate [Back] Respiratory Rate [Leg] Blood Pressure 136/73 149/75 141/75 O2 Sat by Pulse 100 100 Oximetry 08/02/18 08/02/18 08/02/18 10:00 10:16 10:30 Temperature Pulse Rate 109 H 106 H 105 H Respiratory 14 16 18 Rate Respiratory 12 Rate [Back] Respiratory 12 Rate [Leg] Blood Pressure 151/102 158/83 149/81 O2 Sat by Pulse 100 100 100 Oximetry 08/02/18 08/02/18 08/02/18 10:45 11:00 11:15 Temperature Pulse Rate 103 H 92 H 96 H Respiratory 12 12 13 Rate Respiratory Rate [Back] Respiratory Rate [Leg] Blood Pressure 144/78 113/57 123/64 O2 Sat by Pulse 100 100 100 Oximetry 08/02/18 08/02/18 11:30 12:33 Temperature Pulse Rate 96 H 100 H Respiratory 12 Rate Respiratory Rate [Back] Respiratory Rate [Leg] Blood Pressure 124/68 106/52 O2 Sat by Pulse 100 100 Oximetry - Laboratory Findings CBC and BMP: 07/31/18 11:39 07/31/18 11:39 Abnormal Lab Findings: Abnormal Labs 07/31/18 07/31/18 07/31/18 11:14 11:39 11:39 RDW 16.3 H [place] % (Auto) 8.4 H POC ABG pH POC ABG pCO2 POC ABG pO2 [place] 96.6 L BUN 38 H Creatinine 7.5 H Glucose 103 H POC Glucose 157 H Troponin T Triglycerides HDL Cholesterol Urine WBC (Auto) 07/31/18 07/31/18 07/31/18 12:29 12:34 12:37 RDW [place] % (Auto) POC ABG pH POC ABG pCO2 POC ABG pO2 194 H Ch[place] BUN Creatinine Glucose POC Glucose Troponin T 0.070 H Triglycerides 270 H HDL Cholesterol 31 L Urine WBC (Auto) 114.0 H 08/01/18 08/01/18 08/01/18 03:01 05:15 11:56 RDW [place] % (Auto) POC ABG pH POC ABG pCO2 27.9 L POC ABG pO2 128 H [place] BUN Creatinine Glucose POC Glucose 251 H 249 H Troponin T Triglycerides HDL Cholesterol Urine WBC (Auto) 08/01/18 08/01/18 08/02/18 17:36 23:32 04:44 RDW [place] % (Auto) POC ABG pH 7.485 H POC ABG pCO2 34.6 L POC ABG pO2 [place] BUN Creatinine Glucose POC Glucose 205 H 273 H Troponin T Triglycerides HDL Cholesterol Urine WBC (Auto) 08/02/18 08/02/18 05:29 12:45 RDW [place] % (Auto) POC ABG pH POC ABG pCO2 POC ABG pO2 [place] BUN Creatinine Glucose POC Glucose 325 H 375 H Troponin T Triglycerides HDL Cholesterol Urine WBC (Auto)
[2018-08-02] MEDS ORDERED: LANTUS SUB-Q SCH (22:00)
[2018-08-03] MEDS: DIPRIVAN 10 MG/ML 1,000 MG/100 ML BOTTLE IV SCH (00:30)
[2018-08-03] MEDS: HumaLOG SUB-Q SCH ×5 (00:30→21:03)
[2018-08-03] MEDS: CATAPRES PO SCH ×4 (05:30→22:29)
[2018-08-03] MEDS: HEPARIN SUB-Q SCH ×3 (05:39→21:02)
--- NOTE | 2018-08-03 06:39 | Progress Note ---
Assessment and Plan - Patient Problems (1) ESRD (end stage renal disease) on dialysis Current Visit: Yes Status: Chronic Plan to address problem: Placed orders for HD on a inpatient TTS schedule. (2) Acute respiratory failure with hypoxia Current Visit: Yes Status: Acute Plan to address problem: Patient remains intubated. Further management per ICU/pulmonology. (3) Encephalopathy Current Visit: No Status: Acute Plan to address problem: Remains intubated and sedated. Neurochecks per protocol. CT head without any acute abnormalities. EEG indicated that patient was in status epilepticus. Neurology input noted. Pending repeat EEG today. On diprivan gtt. (4) Hypertensive chronic kidney disease with stage 5 chronic kidney disease or end stage renal disease Current Visit: Yes Status: Chronic Plan to address problem: Will continue to monitor on current regimen. 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 Subjective Date of service: 08/03/18 Principal diagnosis: Angiodema and no IV access Interval history: No acute events overnight. She is on diprivan gtt. Per notes, she apparently was in status epilepticus during her previous EEG. She is pending repeat today. Midline has been placed in the LUE through which diprivan is being administered currently. Plan for HD today. Objective - Vital Signs Vital signs: Vital Signs - 12hr 08/02/18 08/02/18 08/02/18 18:45 19:00 19:15 Temperature Pulse Rate 96 H 95 H 98 H Respiratory 12 12 13 Rate Blood Pressure 129/68 129/68 127/67 O2 Sat by Pulse 100 100 100 Oximetry 08/02/18 08/02/18 08/02/18 19:30 19:45 20:00 Temperature 99.8 F H Pulse Rate 95 H 97 H 97 H Respiratory 13 15 12 Rate Blood Pressure 129/67 116/72 138/71 O2 Sat by Pulse 100 100 100 Oximetry 08/02/18 08/02/18 08/02/18 20:10 20:15 20:30 Temperature Pulse Rate 100 H 92 H 97 H Respiratory 12 13 Rate Blood Pressure 128/67 128/67 117/77 O2 Sat by Pulse 100 100 100 Oximetry 08/02/18 08/02/18 08/02/18 20:45 21:00 21:15 Temperature Pulse Rate 97 H 91 H 95 H Respiratory 13 12 12 Rate Blood Pressure 129/75 121/65 115/70 O2 Sat by Pulse 100 100 100 Oximetry 08/02/18 08/02/18 08/02/18 21:30 21:38 21:45 Temperature Pulse Rate 94 H 90 92 H Respiratory 12 12 12 Rate Blood Pressure 115/74 115/74 115/70 O2 Sat by Pulse 100 100 100 Oximetry 08/02/18 08/02/18 08/02/18 21:50 22:00 22:15 Temperature Pulse Rate 90 87 85 Respiratory 12 12 12 Rate Blood Pressure 115/74 114/56 109/54 O2 Sat by Pulse 100 100 100 Oximetry 08/02/18 08/02/18 08/02/18 22:30 22:45 23:00 Temperature Pulse Rate 84 83 84 Respiratory 12 12 12 Rate Blood Pressure 108/54 111/53 102/52 O2 Sat by Pulse 100 100 100 Oximetry 08/02/18 08/02/18 08/02/18 23:15 23:23 23:30 Temperature Pulse Rate 87 85 91 H Respiratory 12 12 Rate Blood Pressure 112/55 127/73 O2 Sat by Pulse 100 100 Oximetry 08/02/18 08/03/18 08/03/18 23:45 00:00 00:10 Temperature 99.8 F H Pulse Rate 94 H 96 H 103 H Respiratory 12 12 Rate Blood Pressure 133/71 133/71 O2 Sat by Pulse 100 100 100 Oximetry 08/03/18 08/03/18 08/03/18 00:15 00:30 00:46 Temperature Pulse Rate 93 H 103 H 99 H Respiratory 12 15 14 Rate Blood Pressure 143/79 133/71 128/47 O2 Sat by Pulse 100 100 100 Oximetry 08/03/18 08/03/18 08/03/18 01:00 01:15 01:30 Temperature Pulse Rate 95 H 90 88 Respiratory 12 12 12 Rate Blood Pressure 137/73 120/62 117/63 O2 Sat by Pulse 100 100 100 Oximetry 08/03/18 08/03/18 08/03/18 01:45 02:00 02:15 Temperature Pulse Rate 87 86 86 Respiratory 12 12 12 Rate Blood Pressure 107/57 120/62 99/60 O2 Sat by Pulse 100 100 100 Oximetry 08/03/18 08/03/18 08/03/18 02:30 02:45 03:00 Temperature Pulse Rate 87 87 86 Respiratory 12 12 12 Rate Blood Pressure 109/55 106/56 108/59 O2 Sat by Pulse 100 100 100 Oximetry 08/03/18 08/03/18 08/03/18 03:15 03:30 03:45 Temperature Pulse Rate 95 H 95 H 97 H Respiratory 13 12 12 Rate Blood Pressure 125/71 128/74 127/65 O2 Sat by Pulse 100 100 100 Oximetry 08/03/18 08/03/18 08/03/18 04:00 04:15 04:22 Temperature 100.0 F H Pulse Rate 100 H 95 H 99 H Respiratory 14 12 Rate Blood Pressure 133/79 139/70 O2 Sat by Pulse 100 100 Oximetry 08/03/18 08/03/18 08/03/18 04:30 04:46 04:50 Temperature Pulse Rate 95 H 89 100 H Respiratory 12 12 Rate Blood Pressure 143/72 117/57 O2 Sat by Pulse 100 100 98 Oximetry 08/03/18 08/03/18 08/03/18 05:00 05:15 05:39 Temperature Pulse Rate 104 H 100 H 97 H Respiratory 15 12 Rate Blood Pressure 117/57 141/76 141/76 O2 Sat by Pulse 100 99 Oximetry - General Appearance General appearance: chronically ill, sedated on ventilator, intubated EENT: ATNC, PERRL Neck: no JVD, no thyromegaly Respiratory: Present: Clear to Ascultation Cardiology: regular, S1S2 Gastrointestinal: normal, normoactive bowel sounds Integumentary: no rash, warm and dry Neurologic: other (intubated, sedated) Musculoskeletal: other (-edema ) Psychiatric: other (intubated, sedated ) - Lab 07/31/18 11:39 07/31/18 11:39 Most recent lab results Calcium 8.9 mg/dL (8.4-10.2) 07/31/18 11:39 - Allied health notes Allied health notes reviewed: nursing Medications & Allergies - Medications Allergies/Adverse Reactions: Allergies ibuprofen Allergy (Verified 06/24/17 17:09) Rash Home Medications: Home Medications Medication Instructions Recorded Confirmed Last Taken Type Amlodipine Besylate 10 mg PO DAILY 08/27/15 08/02/18 08/09/17 History AtorvaSTATin [Lipitor] 40 mg PO DAILY 08/27/15 08/02/18 08/09/17 History Gabapentin 300 mg PO TID 08/27/15 08/02/18 08/09/17 History HumaLOG VIAL 15 unit SQ TID 03/19/17 08/02/18 08/09/17 History oxyCODONE /ACETAMINOPHEN [Percocet 1 tab PO Q6HR PRN #14 tablet 07/28/17 08/02/18 08/09/17 Rx 5/325] levETIRAcetam [Keppra TAB] 500 mg PO BID #60 tablet 07/24/18 08/02/18 Unknown Rx Lisinopril [Zestril] 40 mg PO DAILY 08/02/18 08/02/18 Unknown History Active Medications: Generic Name Dose Route Start Last Admin Trade Name Freq PRN Reason Stop Dose Admin Albumin Human 12.5 gm 07/31/18 21:53 Alburx 25% (Albumin) IV DESIREE PRN Hypotension Amlodipine Besylate 10 mg 08/01/18 12:00 08/02/18 09:25 Norvasc PO 10 mg DAILY LORENE Administration Lipase/Protease/Amylase 1 each 08/01/18 14:[address] 10,500 Unit FEEDTUBE PRN PRN For Clogged Feeding Tube Atorvastatin Calcium 40 mg 08/01/18 14:30 08/02/18 09:25 Lipitor PO 40 mg DAILY LORENE Administration Clonidine HCl 0.1 mg 08/01/18 14:00 08/03/18 05:39 Catapres PO 0.1 mg Q8HR LORENE Administration Famotidine 20 mg 08/03/18 10:00 Pepcid PO DAILY LORENE Fentanyl 25 mcg 08/01/18 11:32 Sublimaze IV Q2H PRN Pain , Severe (7-10) Heparin Sodium (Porcine) 5,000 unit 08/01/18 14:00 08/03/18 05:39 Heparin SUB-Q 5,000 unit Q8HR LORENE Administration Hydrophilic Ointment 1 applic 07/31/18 12:00 Vaseline Lip Therapy TP Q2HR PRN Dry Lips Ceftriaxone Sodium 1 gm in 50 mls @ 100 mls/hr 08/01/18 10:00 08/02/18 09:26 Rocephin/Ns 1 Gm/50 Ml IV 08/07/18 10:29 100 mls/hr Q24HR LORENE Administration Protocol Sodium Chloride 100 mls @ 999 mls/hr 07/31/18 21:53 Nacl 0.9% IV DESIREE PRN Hypotension Levetiracetam 750 mg/ Sodium 107.5 mls @ 400 mls/hr 08/01/18 15:00 08/02/18 21:34 Chloride IV 400 mls/hr Q12HR LORENE Administration Propofol 1,000 mg in 100 mls @ 2.418 mls/hr 08/02/18 10:00 08/03/18 00:48 Diprivan 10 Mg/Ml IV 20 mcg/kg/min TITR LORENE 9.672 mls/hr Titration Protocol 5 MCG/KG/MIN Insulin Glargine 30 units 08/02/18 22:00 08/02/18 21:35 Lantus SUB-Q 30 units QHS LORENE Administration Insulin Human Lispro 0 unit 08/01/18 12:00 08/03/18 05:39 Humalog SUB-Q 4 unit Q6HR LORENE Administration Protocol Lorazepam 1 mg 08/01/18 11:32 Ativan IV Q4H PRN Agitation Multi-Ingred Cream/Lotion/Oil/Oint 1 applic 07/31/18 12:00 Artificial Tears Ophth Oint OU Q4HR PRN Dry Eye(s) Simple Syrup 15 ml 08/01/18 14:57 Simple Syrup FEEDTUBE PRN PRN Hypoglycemia Simple Syrup 30 ml 08/01/18 14:57 Simple Syrup FEEDTUBE PRN PRN Hypoglycemia Sodium Bicarbonate 650 mg 08/01/18 15:00 08/02/18 21:34 Sodium Bicarbonate PO 650 mg BID LORENE Administration Sodium Bicarbonate 325 mg 08/01/18 14:57 Sodium Bicarbonate FEEDTUBE PRN PRN For Clogged Feeding Tube Sodium Chloride 10 ml 07/31/18 22:00 08/02/18 21:35 Sodium Chloride Flush Syringe 10 Ml IV 10 ml BID LORENE Administration Sodium Chloride 10 ml 07/31/18 13:28 Sodium Chloride Flush Syringe 10 Ml IV PRN PRN LINE FLUSH
[2018-08-03] MEDS: SODIUM BICARBONATE PO SCH ×2 (09:24→21:00)
[2018-08-03] MEDS: PEPCID PO SCH (09:24)
[2018-08-03] MEDS: NORVASC PO SCH (09:24)
[2018-08-03] MEDS: KEPPRA 750 MG in NACL 0.9% 100 ML IV SCH ×2 (09:25→21:00)
[2018-08-03] MEDS: ROCEPHIN/NS 1 GM/50 ML 1 GM/50 ML BAG IV SCH (09:27)
[2018-08-03] MEDS: SODIUM CHLORIDE FLUSH SYRINGE 10 ML IV SCH ×2 (09:28→21:11)
[2018-08-03] MEDS ORDERED: LANTUS SUB-Q ONE (11:00)
--- NOTE | 2018-08-03 11:02 | Progress Note ---
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 In the ED patient thought to have angioedema although unsure of etiology, Only new medication is Keppra. Fram chart review, patient has no hx of seizure Patient remains intubated in the ICU with no change in mental status and remains unresponsive despite sedative being turned off. CT head negative for Acute infarct. shows chronic lacunar infarct CXR unremarkable except for ET tube Acute Metabolic Encephalopathy Status Epilepticus -Noted on EEG. 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 The aggregate critical care time was [65] minutes. This time is in addition to time spent performing reported procedures but includes the following: [x] Data Review and interpretation [x] Patient assessment and monitoring of vital signs [x] Documentation [x] Medication orders and management History Interval history: Patient seen and examined, more awake today. NOW EXTUBATED this am, still lathergic but more awake and verbal Hospitalist Physical - Physical exam Narrative exam: VITAL SIGNS: Reviewed. GENERAL: The patient appeared well nourished and normally developed. currently on Mechanical ventilatory support Vital signs as documented. HEAD: No signs of head trauma. EYES: Pupils are equal and reactive EARS: unable to access MOUTH: Oropharynx is normal NECK: No adenopathy, no JVD. CHEST: Chest with clear breath sounds bilaterally. No wheezes, rales, or rhonchi. CARDIAC: Regular rate and rhythm. S1 and S2, without murmurs, gallops, or rubs. VASCULAR: No Edema. Peripheral pulses normal and equal in all extremities. ABDOMEN: Soft, without detectable tenderness. No sign of distention. No rebound or guarding, and no masses palpated. Bowel Sounds normal. MUSCULOSKELETAL: Extremities without clubbing, cyanosis or edema. NEUROLOGIC EXAM: awake, oriented to person and place appears to attempt to respond, PSYCHIATRIC: normal mood SKIN: No rash or lesions. - Constitutional Vitals: Temp Pulse Resp BP Pulse Ox 98.0 F 111 H 12 143/78 100 08/03/18 08:00 08/03/18 09:24 08/03/18 07:00 08/03/18 09:24 08/03/18 10:25 General appearance: Present: severe distress Results - Labs CBC & Chem 7: 07/31/18 11:39 07/31/18 11:39 Labs: Laboratory Last Values WBC 9.6 K/mm3 (4.5-11.0) 07/31/18 11:39 RBC 3.89 M/mm3 (3.65-5.03) 07/31/18 11:39 Hgb 11.3 gm/dl (10.1-14.3) 07/31/18 11:39 Hct 35.4 % (30.3-42.9) 07/31/18 11:39 MCV 91 fl (79-97) 07/31/18 11:39 MCH 29 pg (28-32) 07/31/18 11:39 MCHC 32 % (30-34) 07/31/18 11:39 RDW 16.3 % (13.2-15.2) H 07/31/18 11:39 Plt Count 218 K/mm3 (140-440) 07/31/18 11:39 Lymph % (Auto) 30.4 % (13.4-35.0) 07/31/18 11:39 [place] % (Auto) 8.4 % (0.0-7.3) H 07/31/18 11:39 Eos % (Auto) 2.9 % (0.0-4.3) 07/31/18 11:39 Baso % (Auto) 0.8 % (0.0-1.8) 07/31/18 11:39 Lymph # 2.9 K/mm3 (1.2-5.4) 07/31/18 11:39 [place] # 0.8 K/mm3 (0.0-0.8) 07/31/18 11:39 Eos # 0.3 K/mm3 (0.0-0.4) 07/31/18 11:39 Baso # 0.1 K/mm3 (0.0-0.1) 07/31/18 11:39 Seg Neutrophils % 57.5 % (40.0-70.0) 07/31/18 11:39 Seg Neutrophils # 5.5 K/mm3 (1.8-7.7) 07/31/18 11:39 APTT 34.3 Sec. (24.2-36.6) 08/02/18 14:40 POC ABG pH 7.510 (7.35-7.45) H 08/03/18 05:03 POC ABG pCO2 35.8 (35-45) 08/03/18 05:03 POC ABG pO2 149 (80-105) H 08/03/18 05:03 POC ABG HCO3 28.6 08/03/18 05:03 POC ABG Total CO2 30 08/03/18 05:03 POC ABG O2 Sat 99 08/03/18 05:03 POC ABG Base Excess 6 08/03/18 05:03 FiO2 30 % 08/03/18 05:03 Sodium 139 mmol/L (137-145) 07/31/18 11:39 Potassium 4.6 mmol/L (3.6-5.0) 07/31/18 11:39 Chloride 96.6 mmol/L (98-107) L 07/31/18 11:39 Carbon Dioxide 23 mmol/L (22-30) 07/31/18 11:39 Anion Gap 24 mmol/L 07/31/18 11:39 BUN 38 mg/dL (7-17) H 07/31/18 11:39 Creatinine 7.5 mg/dL (0.7-1.2) H 07/31/18 11:39 Estimated GFR 7 ml/min 07/31/18 11:39 BUN/Creatinine Ratio 5 % 07/31/18 11:39 Glucose 103 mg/dL (65-100) H 07/31/18 11:39 POC Glucose 232 (70-105) H 08/03/18 06:04 Calcium 8.9 mg/dL (8.4-10.2) 07/31/18 11:39 Total Bilirubin 0.20 mg/dL (0.1-1.2) 07/31/18 11:39 Direct Bilirubin < 0.2 mg/dL (0-0.2) 07/31/18 11:39 AST 13 units/L (5-40) 07/31/18 11:39 ALT 9 units/L (7-56) 07/31/18 11:39 Alkaline Phosphatase 120 units/L (35-129) 07/31/18 11:39 Ammonia 36.0 umol/L (25-60) 07/31/18 12:29 Troponin T 0.070 ng/mL (0.00-0.029) H 07/31/18 12:29 Total Protein 7.6 g/dL (6.3-8.2) 07/31/18 11:39 Albumin 4.0 g/dL (3.9-5) 07/31/18 11:39 Albumin/Globulin Ratio 1.1 % 07/31/18 11:39 Triglycerides 270 mg/dL (2-149) H 07/31/18 12:29 Cholesterol 143 mg/dL (50-199) 07/31/18 12:29 LDL Cholesterol Direct 74 mg/dL (50-130) 07/31/18 12:29 HDL Cholesterol 31 mg/dL (40-59) L 07/31/18 12:29 Cholesterol/HDL Ratio 4.61 % 07/31/18 12:29 Urine Color Yellow (Yellow) 07/31/18 12:37 Urine Turbidity Slightly-cloudy (Clear) 07/31/18 12:37 Urine pH 7.0 (5.0-7.0) 07/31/18 12:37 Ur Specific Cash 1.010 (1.003-1.030) 07/31/18 12:37 Urine Protein 100 mg/dl mg/dL (Negative) 07/31/18 12:37 Urine Glucose (UA) 150 mg/dL (Negative) 07/31/18 12:37 Urine Ketones Neg mg/dL (Negative) 07/31/18 12:37 Urine Blood Neg (Negative) 07/31/18 12:37 Urine Nitrite Neg (Negative) 07/31/18 12:37 Urine Bilirubin Neg (Negative) 07/31/18 12:37 Urine Urobilinogen < 2.0 mg/dL (<2.0) 07/31/18 12:37 Ur Leukocyte Esterase Lg (Negative) 07/31/18 12:37 Urine WBC (Auto) 114.0 /HPF (0.0-6.0) H 07/31/18 12:37 Urine RBC (Auto) 13.0 /HPF (0.0-6.0) 07/31/18 12:37 U Epithel Cells (Auto) 1.0 /HPF (0-13.0) 07/31/18 12:37 Urine Bacteria (Auto) 2+ /HPF (Negative) 07/31/18 12:37 Urine HCG, Qual Negative (Negative) 07/31/18 12:37 Urine Opiates Screen Presumptive negative 07/31/18 12:37 Urine Methadone Screen Presumptive negative 07/31/18 12:37 Ur Barbiturates Screen Presumptive negative 07/31/18 12:37 Ur Phencyclidine Scrn Presumptive negative 07/31/18 12:37 Ur Amphetamines Screen Presumptive negative 07/31/18 12:37 U Benzodiazepines Scrn Presumptive negative 07/31/18 12:37 Urine Cocaine Screen Presumptive negative 07/31/18 12:37 U Marijuana (THC) Screen Presumptive negative 07/31/18 12:37 Drugs of Abuse Note Disclamer 07/31/18 12:37 Nutrition/Malnutrition Assess - Dietary Evaluation Nutrition/Malnutrition Findings: Nutrition Notes Start: 08/01/18 13:28 Freq: Status: Active Protocol: Document 08/01/18 13:28 CT (Rec: 08/01/18 14:29 CT [id number]) Co-Sign 08/01/18 13:28 NHALL Nutrition Notes Need for Assessment 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 Burn Absent Trauma Absent #1 Nutrition Diagnosis Inadequate oral intake Etiology vent status As Evidenced by Signs and Symptoms pt NPO Is patient on ventilator? Yes Is Patient Ambulatory and/or Out of Bed No REE-([place]-St. Jeor-confined to bed) 1695.696 Kcal/Kg value to use for calculation 15 Approximate Energy Requirements Using 1209 kcal/Kg Calculation Used for Recommendations Kcal/kg Additional Notes PRO: 104g/daily (2g/kg IBW, IBW = 52kg) Fluid: 1ml/kcal Nutrition Intervention Change Diet Order: TF Nutrition Support: Vital High Protein at 50ml/hr. Water flush of 50mls q4h Kcal 1,200 Protein (gm) 105 Carbohydrates (gm) 134 Fluid (mL) 1,003 Goal #1 TF tolerance Goal #2 TF to meet at least 80% of kcal and PRO needs Anticipated Discharge Needs: Unable to determine at this time. Follow-Up By: 08/03/18 Additional Comments F/U: New TF, renal labs, formula change
--- NOTE | 2018-08-03 11:06 | Progress Note ---
Assessment and Plan 48 y/o female with acute respiratory failure, most likely secondary to altered mental status, found to be in status. 1. Diprovan off, no further seizure activity seen. Reviewed Neuro note and disagree as patient is awake now. 2. Attempt extubation today. 3. Restart all home medications 4. If successfully extubated, bedside swallow, if passes, renal diet, if some question, speech consult. CCT 31 minutes. Subjective Date of service: 08/03/18 Principal diagnosis: Angiodema and no IV access Interval history: Awake and alert. Follows commands. Currently on PSV and tolerating well. No family present. Objective Vital Signs - 12hr 08/02/18 08/02/18 08/02/18 23:15 23:23 23:30 Temperature Pulse Rate 87 85 91 H Respiratory 12 12 Rate Blood Pressure 112/55 127/73 O2 Sat by Pulse 100 100 Oximetry 08/02/18 08/03/18 08/03/18 23:45 00:00 00:10 Temperature 99.8 F H Pulse Rate 94 H 96 H 103 H Respiratory 12 12 Rate Blood Pressure 133/71 133/71 O2 Sat by Pulse 100 100 100 Oximetry 08/03/18 08/03/18 08/03/18 00:15 00:30 00:46 Temperature Pulse Rate 93 H 103 H 99 H Respiratory 12 15 14 Rate Blood Pressure 143/79 133/71 128/47 O2 Sat by Pulse 100 100 100 Oximetry 08/03/18 08/03/18 08/03/18 01:00 01:15 01:30 Temperature Pulse Rate 95 H 90 88 Respiratory 12 12 12 Rate Blood Pressure 137/73 120/62 117/63 O2 Sat by Pulse 100 100 100 Oximetry 08/03/18 08/03/18 08/03/18 01:45 02:00 02:15 Temperature Pulse Rate 87 86 86 Respiratory 12 12 12 Rate Blood Pressure 107/57 120/62 99/60 O2 Sat by Pulse 100 100 100 Oximetry 08/03/18 08/03/18 08/03/18 02:30 02:45 03:00 Temperature Pulse Rate 87 87 86 Respiratory 12 12 12 Rate Blood Pressure 109/55 106/56 108/59 O2 Sat by Pulse 100 100 100 Oximetry 08/03/18 08/03/18 08/03/18 03:15 03:30 03:45 Temperature Pulse Rate 95 H 95 H 97 H Respiratory 13 12 12 Rate Blood Pressure 125/71 128/74 127/65 O2 Sat by Pulse 100 100 100 Oximetry 08/03/18 08/03/18 08/03/18 04:00 04:15 04:22 Temperature 100.0 F H Pulse Rate 100 H 95 H 99 H Respiratory 14 12 Rate Blood Pressure 133/79 139/70 O2 Sat by Pulse 100 100 Oximetry 08/03/18 08/03/18 08/03/18 04:30 04:46 04:50 Temperature Pulse Rate 95 H 89 100 H Respiratory 12 12 Rate Blood Pressure 143/72 117/57 O2 Sat by Pulse 100 100 98 Oximetry 08/03/18 08/03/18 08/03/18 05:00 05:15 05:30 Temperature Pulse Rate 104 H 100 H 98 H Respiratory 15 12 12 Rate Blood Pressure 117/57 141/76 141/76 O2 Sat by Pulse 100 99 100 Oximetry 08/03/18 08/03/18 08/03/18 05:39 05:45 06:00 Temperature Pulse Rate 97 H 97 H 100 H Respiratory 12 12 Rate Blood Pressure 141/76 140/73 136/77 O2 Sat by Pulse 99 100 Oximetry 08/03/18 08/03/18 08/03/18 06:15 06:30 06:45 Temperature Pulse Rate 92 H 90 94 H Respiratory 12 12 12 Rate Blood Pressure 122/65 120/61 129/73 O2 Sat by Pulse 100 99 99 Oximetry 08/03/18 08/03/18 08/03/18 07:00 07:15 07:30 Temperature Pulse Rate 95 H 93 H 88 Respiratory 12 12 12 Rate Blood Pressure 120/63 123/67 114/60 O2 Sat by Pulse 99 99 99 Oximetry 08/03/18 08/03/18 08/03/18 07:45 08:00 08:08 Temperature 98.0 F Pulse Rate 89 89 94 H Respiratory 12 12 Rate Blood Pressure 116/61 111/69 111/69 O2 Sat by Pulse 99 100 100 Oximetry 08/03/18 08/03/18 08/03/18 08:15 08:30 08:45 Temperature Pulse Rate 98 H 101 H 100 H Respiratory 11 L 12 13 Rate Blood Pressure 117/76 117/76 133/74 O2 Sat by Pulse 98 100 100 Oximetry 08/03/18 08/03/18 08/03/18 09:00 09:15 09:24 Temperature Pulse Rate 98 H 100 H 111 H Respiratory 12 12 Rate Blood Pressure 148/119 143/78 143/78 O2 Sat by Pulse 100 99 Oximetry 08/03/18 08/03/18 08/03/18 09:30 09:45 10:00 Temperature Pulse Rate 111 H 104 H 104 H Respiratory 15 13 12 Rate Blood Pressure 143/78 142/82 159/91 O2 Sat by Pulse 100 100 100 Oximetry 08/03/18 08/03/18 08/03/18 10:16 10:25 10:30 Temperature Pulse Rate 108 H 110 H Respiratory 13 19 Rate Blood Pressure 166/88 168/81 O2 Sat by Pulse 100 100 100 Oximetry 08/03/18 08/03/18 10:45 11:00 Temperature Pulse Rate 107 H 105 H Respiratory 18 16 Rate Blood Pressure 156/92 142/82 O2 Sat by Pulse 100 100 Oximetry Constitutional: no acute distress, alert, other (morbidly obese) Eyes: non-icteric ENT: other (orally intubated) Neck: supple Effort: normal Ascultation: Bilateral: clear, diminished breath sounds Percussion: Bilateral: not dull Cardiovascular: regular rate and rhythm Gastrointestinal: normoactive bowel sounds, soft, non-distended Integumentary: normal Extremities: no cyanosis, no edema Neurologic: unable to assess Psychiatric: other (unable to assess) CBC and BMP: 07/31/18 11:39 07/31/18 11:39 ABG, PT/INR, D-dimer: ABG POC ABG pH 7.510 (7.35-7.45) H 08/03/18 05:03 POC ABG pCO2 35.8 (35-45) 08/03/18 05:03 POC ABG pO2 149 (80-105) H 08/03/18 05:03 POC ABG HCO3 28.6 08/03/18 05:03 POC ABG Total CO2 30 08/03/18 05:03 POC ABG O2 Sat 99 08/03/18 05:03 Abnormal lab findings: Abnormal Labs 07/31/18 07/31/18 07/31/18 11:14 11:39 11:39 RDW 16.3 H [place] % (Auto) 8.4 H POC ABG pH POC ABG pCO2 POC ABG pO2 Chloride 96.6 L BUN 38 H Creatinine 7.5 H Glucose 103 H POC Glucose 157 H Troponin T Triglycerides HDL Cholesterol Urine WBC (Auto) 07/31/18 07/31/18 07/31/18 12:29 12:34 12:37 RDW [place] % (Auto) POC ABG pH POC ABG pCO2 POC ABG pO2 194 H Chloride BUN Creatinine Glucose POC Glucose Troponin T 0.070 H Triglycerides 270 H HDL Cholesterol 31 L Urine WBC (Auto) 114.0 H 08/01/18 08/01/18 08/01/18 03:01 05:15 11:56 RDW [place] % (Auto) POC ABG pH POC ABG pCO2 27.9 L POC ABG pO2 128 H Chloride BUN Creatinine Glucose POC Glucose 251 H 249 H Troponin T Triglycerides HDL Cholesterol Urine WBC (Auto) 08/01/18 08/01/18 08/02/18 17:36 23:32 04:44 RDW [place] % (Auto) POC ABG pH 7.485 H POC ABG pCO2 34.6 L POC ABG pO2 Chloride BUN Creatinine Glucose POC Glucose 205 H 273 H Troponin T Triglycerides HDL Cholesterol Urine WBC (Auto) 08/02/18 08/02/18 08/02/18 05:29 12:45 18:16 RDW [place] % (Auto) POC ABG pH POC ABG pCO2 POC ABG pO2 Chloride BUN Creatinine Glucose POC Glucose 325 H 375 H 295 H Troponin T Triglycerides HDL Cholesterol Urine WBC (Auto) 08/02/18 08/03/18 08/03/18 23:34 05:03 05:21 RDW [place] % (Auto) POC ABG pH 7.510 H POC ABG pCO2 POC ABG pO2 149 H Chloride BUN Creatinine Glucose POC Glucose 284 H 240 H Troponin T Triglycerides HDL Cholesterol Urine WBC (Auto) 08/03/18 06:04 RDW [place] % (Auto) POC ABG pH POC ABG pCO2 POC ABG pO2 Chloride BUN Creatinine Glucose POC Glucose 232 H Troponin T Triglycerides HDL Cholesterol Urine WBC (Auto) Allied health notes reviewed: nursing
--- NOTE | 2018-08-03 18:14 | Progress Note ---
Assessment and Plan This is a 48 YO F with status epilepticus per history, currently resolved. PT with lowered seizure threshold, would continue AED treatment with Keppra(or another drug if allergy is suspected). Appropriate to continue aggressive management. REcommend: MRI Brain if no contraindication- suspect these seizures are post stroke but would rule out other structural changes Continue Keppra 750 mg BID Continue medical treatment as you are doing She will need to follow with Neurology outpatient for AED adjustments if needed. Please call if there are any questions. Subjective Date of service: 08/03/18 Principal diagnosis: Angiodema and no IV access Interval history: This is a 48 YO F with history of mutiple strokes who apparent came in seizing, felt to be in status epilepticus. Pt with some cognitive impairment, not able to give full history but says she has had strokes int he past but denied seizure. Is able to hold simple conversation and follows simple commands. plegic on the left. Objective - Vital Sign Vital Signs - 12hr 08/03/18 08/03/18 08/03/18 06:15 06:30 06:45 Temperature Pulse Rate 92 H 90 94 H Pulse Rate [ Apical] Respiratory 12 12 12 Rate Blood Pressure 122/65 120/61 129/73 O2 Sat by Pulse 100 99 99 Oximetry O2 Sat by Pulse Oximetry [ Anterior Bilateral Throughout] 08/03/18 08/03/18 08/03/18 07:00 07:15 07:30 Temperature Pulse Rate 95 H 93 H 88 Pulse Rate [ Apical] Respiratory 12 12 12 Rate Blood Pressure 120/63 123/67 114/60 O2 Sat by Pulse 99 99 99 Oximetry O2 Sat by Pulse Oximetry [ Anterior Bilateral Throughout] 08/03/18 08/03/18 08/03/18 07:45 08:00 08:08 Temperature 98.0 F Pulse Rate 89 89 94 H Pulse Rate [ 102 H Apical] Respiratory 12 12 Rate Blood Pressure 116/61 111/69 111/69 O2 Sat by Pulse 99 100 100 Oximetry O2 Sat by Pulse Oximetry [ Anterior Bilateral Throughout] 08/03/18 08/03/18 08/03/18 08:15 08:30 08:45 Temperature Pulse Rate 98 H 101 H 100 H Pulse Rate [ Apical] Respiratory 11 L 12 13 Rate Blood Pressure 117/76 117/76 133/74 O2 Sat by Pulse 98 100 100 Oximetry O2 Sat by Pulse Oximetry [ Anterior Bilateral Throughout] 08/03/18 08/03/18 08/03/18 09:00 09:15 09:24 Temperature Pulse Rate 98 H 100 H 111 H Pulse Rate [ Apical] Respiratory 12 12 Rate Blood Pressure 148/119 143/78 143/78 O2 Sat by Pulse 100 99 Oximetry O2 Sat by Pulse Oximetry [ Anterior Bilateral Throughout] 08/03/18 08/03/18 08/03/18 09:30 09:45 10:00 Temperature Pulse Rate 111 H 104 H 104 H Pulse Rate [ Apical] Respiratory 15 13 12 Rate Blood Pressure 143/78 142/82 159/91 O2 Sat by Pulse 100 100 100 Oximetry O2 Sat by Pulse Oximetry [ Anterior Bilateral Throughout] 08/03/18 08/03/18 08/03/18 10:16 10:25 10:30 Temperature Pulse Rate 108 H 110 H Pulse Rate [ Apical] Respiratory 13 19 Rate Blood Pressure 166/88 168/81 O2 Sat by Pulse 100 100 100 Oximetry O2 Sat by Pulse Oximetry [ Anterior Bilateral Throughout] 08/03/18 08/03/18 08/03/18 10:45 11:00 11:15 Temperature 98.0 F Pulse Rate 102 H 102 H 106 H Pulse Rate [ Apical] Respiratory 16 16 16 Rate Blood Pressure 142/82 142/82 149/74 O2 Sat by Pulse 100 100 100 Oximetry O2 Sat by Pulse 100 Oximetry [ Anterior Bilateral Throughout] 08/03/18 08/03/18 08/03/18 11:30 11:45 12:00 Temperature 97.8 F Pulse Rate 103 H 105 H 106 H Pulse Rate [ Apical] Respiratory 17 17 19 Rate Blood Pressure 153/73 131/71 131/71 O2 Sat by Pulse 99 98 98 Oximetry O2 Sat by Pulse Oximetry [ Anterior Bilateral Throughout] 08/03/18 08/03/18 08/03/18 12:15 12:16 12:30 Temperature Pulse Rate 104 H 104 H 108 H Pulse Rate [ Apical] Respiratory 18 20 Rate Blood Pressure 124/62 125/61 134/72 O2 Sat by Pulse 97 98 Oximetry O2 Sat by Pulse Oximetry [ Anterior Bilateral Throughout] 08/03/18 08/03/18 08/03/18 12:45 13:00 13:15 Temperature Pulse Rate 109 H 100 H 109 H Pulse Rate [ Apical] Respiratory 17 22 Rate Blood Pressure 131/80 122/70 118/63 O2 Sat by Pulse 100 100 Oximetry O2 Sat by Pulse Oximetry [ Anterior Bilateral Throughout] 08/03/18 08/03/18 08/03/18 13:16 13:30 13:45 Temperature Pulse Rate 106 H 108 H 104 H Pulse Rate [ Apical] Respiratory 20 20 22 Rate Blood Pressure 118/63 118/63 104/63 O2 Sat by Pulse 99 99 100 Oximetry O2 Sat by Pulse Oximetry [ Anterior Bilateral Throughout] 08/03/18 08/03/18 08/03/18 14:00 14:15 14:16 Temperature Pulse Rate 103 H 105 H 104 H Pulse Rate [ Apical] Respiratory 22 24 Rate Blood Pressure 104/63 96/65 96/65 O2 Sat by Pulse 100 100 Oximetry O2 Sat by Pulse Oximetry [ Anterior Bilateral Throughout] 08/03/18 08/03/18 08/03/18 14:30 14:45 15:00 Temperature Pulse Rate 103 H 106 H 108 H Pulse Rate [ Apical] Respiratory 22 23 21 Rate Blood Pressure 113/45 113/74 113/74 O2 Sat by Pulse 100 98 99 Oximetry O2 Sat by Pulse Oximetry [ Anterior Bilateral Throughout] 08/03/18 08/03/18 08/03/18 15:16 15:30 15:38 Temperature Pulse Rate 108 H 104 H 107 H Pulse Rate [ Apical] Respiratory 16 18 Rate Blood Pressure 131/57 131/57 127/73 O2 Sat by Pulse 98 99 Oximetry O2 Sat by Pulse Oximetry [ Anterior Bilateral Throughout] 08/03/18 08/03/18 08/03/18 15:46 16:00 16:16 Temperature Pulse Rate 107 H 104 H 101 H Pulse Rate [ Apical] Respiratory 22 24 25 H Rate Blood Pressure 127/73 145/87 191/163 O2 Sat by Pulse 97 99 99 Oximetry O2 Sat by Pulse Oximetry [ Anterior Bilateral Throughout] - EENT EENT: PERRL, mucous membranes moist - Respiratory Respiratory: lungs clear - Cardiovascular Cardiovascular: regular rate Extremities: no inflammation - Gastrointestinal Gastrointestinal: normoactive bowel sounds - Integumentary Integumentary: normal - Neurologic Cranial nerve examination: PERRL, EOMI, V1/V2/V3 grossly intact, face symmetric Speech examination: other (dysarthria) Motor examination - right side: 4/5: biceps, triceps, wrist flexion, wrist extension, mobile practice lead, hip flexors, knee extensors, dorsiflexion, toe extension (EHL), plantarflexion Motor examination - left side: 1/5: biceps, triceps, wrist flexion, wrist extension, mobile practice lead, plantarflexion, 2/5: hip flexors, knee extensors, dorsiflexion, toe extension (EHL) Detailed sensory examination: light touch, two-point discrimination Reflexes: 1+: ankle, bicep, knee, tricep - Laboratory Findings CBC and BMP: 07/31/18 11:39 07/31/18 11:39 Abnormal Lab Findings: Abnormal Labs 07/31/18 07/31/18 07/31/18 11:14 11:39 11:39 RDW 16.3 H [place] % (Auto) 8.4 H POC ABG pH POC ABG pCO2 POC ABG pO2 Chloride 96.6 L BUN 38 H Creatinine 7.5 H Glucose 103 H POC Glucose 157 H Troponin T Triglycerides HDL Cholesterol Urine WBC (Auto) 07/31/18 07/31/18 07/31/18 12:29 12:34 12:37 RDW [place] % (Auto) POC ABG pH POC ABG pCO2 POC ABG pO2 194 H Chloride BUN Creatinine Glucose POC Glucose Troponin T 0.070 H Triglycerides 270 H HDL Cholesterol 31 L Urine WBC (Auto) 114.0 H 08/01/18 08/01/18 08/01/18 03:01 05:15 11:56 RDW [place] % (Auto) POC ABG pH POC ABG pCO2 27.9 L POC ABG pO2 128 H Chloride BUN Creatinine Glucose POC Glucose 251 H 249 H Troponin T Triglycerides HDL Cholesterol Urine WBC (Auto) 08/01/18 08/01/18 08/02/18 17:36 23:32 04:44 RDW [place] % (Auto) POC ABG pH 7.485 H POC ABG pCO2 34.6 L POC ABG pO2 Chloride BUN Creatinine Glucose POC Glucose 205 H 273 H Troponin T Triglycerides HDL Cholesterol Urine WBC (Auto) 08/02/18 08/02/18 08/02/18 05:29 12:45 18:16 RDW [place] % (Auto) POC ABG pH POC ABG pCO2 POC ABG pO2 Chloride BUN Creatinine Glucose POC Glucose 325 H 375 H 295 H Troponin T Triglycerides HDL Cholesterol Urine WBC (Auto) 08/02/18 08/03/18 08/03/18 23:34 05:03 05:21 RDW [place] % (Auto) POC ABG pH 7.510 H POC ABG pCO2 POC ABG pO2 149 H Chloride BUN Creatinine Glucose POC Glucose 284 H 240 H Troponin T Triglycerides HDL Cholesterol Urine WBC (Auto) 08/03/18 08/03/18 08/03/18 06:04 12:02 16:31 RDW [place] % (Auto) POC ABG pH POC ABG pCO2 POC ABG pO2 Chloride BUN Creatinine Glucose POC Glucose 232 H 217 H 128 H Troponin T Triglycerides HDL Cholesterol Urine WBC (Auto)
[2018-08-03] MEDS: CHLORASEPTIC MM PRN (18:19)
[2018-08-03] MEDS ORDERED: PERCOCET 5/325 PO ONE (18:39)
[2018-08-03] MEDS: LANTUS SUB-Q SCH (21:00)
[2018-08-04] MEDS: ATIVAN IV PRN (00:58)
[2018-08-04] MEDS: HEPARIN SUB-Q SCH ×3 (06:06→22:05)
[2018-08-04] MEDS: CATAPRES PO SCH ×3 (06:06→22:04)
--- NOTE | 2018-08-04 06:26 | Progress Note ---
Assessment and Plan - Patient Problems (1) ESRD (end stage renal disease) on dialysis Current Visit: Yes Status: Chronic Plan to address problem: Placed orders for HD on a inpatient TTS schedule. (2) Acute respiratory failure with hypoxia Current Visit: Yes Status: Acute Plan to address problem: Patient remains intubated. Further management per ICU/pulmonology. (3) Encephalopathy Current Visit: No Status: Acute Plan to address problem: s/p extubation and patient is back to her baseline mental status. Continues on AED with keppra. (4) Hypertensive chronic kidney disease with stage 5 chronic kidney disease or end stage renal disease Current Visit: Yes Status: Chronic Plan to address problem: Will continue to monitor on current regimen. (5) Type 2 diabetes mellitus with diabetic chronic kidney disease Current Visit: No Status: Chronic Qualifiers: Diabetes mellitus custodial insulin use: with custodial use Chronic kidney disease stage: on chronic dialysis Qualified Code(s): E11.22 - Type 2 diabetes mellitus with diabetic chronic kidney disease; N18.6 - End stage renal disease; Z79.4 - intermediate (current) use of insulin; Z99.2 - Dependence on renal dialysis Plan to address problem: Management per primary team. Subjective Date of service: 08/04/18 Principal diagnosis: Angiodema and no IV access Interval history: Extubated, awake, and overall mental status is back to her baseline. On Keppra, neurology input noted. Plan for HD today. Objective - Vital Signs Vital signs: Vital Signs - 12hr 08/03/18 08/03/18 08/03/18 18:30 18:45 19:00 Temperature Pulse Rate 102 H 106 H Respiratory 25 H 16 Rate Blood Pressure 113/68 103/65 103/65 O2 Sat by Pulse 93 93 96 Oximetry 08/03/18 08/03/18 08/03/18 19:15 19:30 19:45 Temperature Pulse Rate 101 H 102 H 99 H Respiratory 19 17 21 Rate Blood Pressure 118/68 119/62 114/67 O2 Sat by Pulse 95 93 92 Oximetry 08/03/18 08/03/18 08/03/18 19:57 20:00 20:06 Temperature 98.4 F Pulse Rate 99 H Respiratory 22 20 Rate Blood Pressure 110/64 O2 Sat by Pulse 96 94 95 Oximetry 08/03/18 08/03/18 08/03/18 20:15 20:16 20:30 Temperature Pulse Rate 99 H 98 H 101 H Respiratory 19 16 Rate Blood Pressure 111/58 127/74 O2 Sat by Pulse 93 97 Oximetry 08/03/18 08/03/18 08/03/18 20:45 21:00 21:15 Temperature Pulse Rate 97 H 96 H 96 H Respiratory 16 17 22 Rate Blood Pressure 129/65 129/65 126/58 O2 Sat by Pulse 93 95 94 Oximetry 08/03/18 08/03/18 08/03/18 21:30 21:45 22:00 Temperature Pulse Rate 95 H 94 H 92 H Respiratory 19 20 20 Rate Blood Pressure 116/75 124/70 112/71 O2 Sat by Pulse 93 98 Oximetry 08/03/18 08/03/18 08/03/18 22:15 22:30 22:45 Temperature Pulse Rate 91 H 96 H 92 H Respiratory 19 14 18 Rate Blood Pressure 119/66 113/71 126/69 O2 Sat by Pulse 96 94 94 Oximetry 08/03/18 08/03/18 08/03/18 22:51 23:00 23:03 Temperature Pulse Rate 91 H 91 H 93 H Respiratory 22 19 17 Rate Blood Pressure 126/69 119/63 119/63 O2 Sat by Pulse 98 93 99 Oximetry 08/03/18 08/03/18 08/03/18 23:15 23:30 23:45 Temperature Pulse Rate 90 92 H 89 Respiratory 19 19 17 Rate Blood Pressure 117/64 115/64 116/64 O2 Sat by Pulse 92 95 93 Oximetry 08/04/18 08/04/18 08/04/18 00:00 00:15 00:30 Temperature 97.8 F Pulse Rate 87 92 H 92 H Respiratory 17 14 18 Rate Blood Pressure 96/51 112/66 119/70 O2 Sat by Pulse 94 90 92 Oximetry 08/04/18 08/04/18 08/04/18 00:45 00:47 01:00 Temperature Pulse Rate 92 H 93 H 95 H Respiratory 20 18 Rate Blood Pressure 123/75 O2 Sat by Pulse 92 96 Oximetry 08/04/18 08/04/18 08/04/18 01:15 01:30 01:45 Temperature Pulse Rate 93 H 90 91 H Respiratory 22 19 18 Rate Blood Pressure 113/66 108/54 107/61 O2 Sat by Pulse 91 91 95 Oximetry 08/04/18 08/04/18 08/04/18 02:00 02:15 02:30 Temperature Pulse Rate 89 88 90 Respiratory 15 17 19 Rate Blood Pressure 103/58 99/53 103/57 O2 Sat by Pulse 95 93 93 Oximetry 08/04/18 08/04/18 08/04/18 02:45 03:00 03:15 Temperature Pulse Rate 87 94 H 99 H Respiratory 17 18 20 Rate Blood Pressure 100/55 100/55 125/73 O2 Sat by Pulse 94 99 97 Oximetry 08/04/18 08/04/18 08/04/18 03:30 03:45 04:00 Temperature Pulse Rate 99 H 99 H 96 H Respiratory 22 21 19 Rate Blood Pressure 123/81 121/70 117/73 O2 Sat by Pulse 92 93 92 Oximetry 08/04/18 08/04/18 08/04/18 04:15 04:30 04:45 Temperature Pulse Rate 96 H 95 H 99 H Respiratory 20 16 18 Rate Blood Pressure 125/73 120/71 128/79 O2 Sat by Pulse 92 95 98 Oximetry 08/04/18 08/04/18 08/04/18 05:00 05:15 05:30 Temperature Pulse Rate 98 H 97 H 101 H Respiratory 18 19 16 Rate Blood Pressure 133/77 124/76 126/81 O2 Sat by Pulse 94 94 95 Oximetry 08/04/18 08/04/18 08/04/18 05:45 06:00 06:06 Temperature 97.1 F L Pulse Rate 98 H 97 H 101 H Respiratory 18 17 Rate Blood Pressure 140/77 137/76 137/76 O2 Sat by Pulse 95 94 Oximetry - General Appearance General appearance: well-developed, well-nourished, appears stated age EENT: ATNC, PERRL Neck: no JVD, no thyromegaly Respiratory: Present: Clear to Ascultation Cardiology: regular, S1S2 Gastrointestinal: normal, normoactive bowel sounds Integumentary: no rash, warm and dry Neurologic: no focal deficit, no asterixis Musculoskeletal: other (-edema ) Psychiatric: mood/affect appropriate, cooperative - Lab 07/31/18 11:39 07/31/18 11:39 Most recent lab results Calcium 8.9 mg/dL (8.4-10.2) 07/31/18 11:39 - Allied health notes Allied health notes reviewed: nursing Medications & Allergies - Medications Allergies/Adverse Reactions: Allergies ibuprofen Allergy (Verified 06/24/17 17:09) Rash Home Medications: Home Medications Medication Instructions Recorded Confirmed Last Taken Type Amlodipine Besylate 10 mg PO DAILY 08/27/15 08/02/18 08/09/17 History AtorvaSTATin [Lipitor] 40 mg PO DAILY 08/27/15 08/02/18 08/09/17 History Gabapentin 300 mg PO TID 08/27/15 08/02/18 08/09/17 History HumaLOG VIAL 15 unit SQ TID 03/19/17 08/02/18 08/09/17 History oxyCODONE /ACETAMINOPHEN [Percocet 1 tab PO Q6HR PRN #14 tablet 07/28/17 08/02/18 08/09/17 Rx 5/325] levETIRAcetam [Keppra TAB] 500 mg PO BID #60 tablet 07/24/18 08/02/18 Unknown Rx Lisinopril [Zestril] 40 mg PO DAILY 08/02/18 08/02/18 Unknown History Active Medications: Generic Name Dose Route Start Last Admin Trade Name Freq PRN Reason Stop Dose Admin Albumin Human 12.5 gm 07/31/18 21:53 Alburx 25% (Albumin) IV DESIREE PRN Hypotension Amlodipine Besylate 10 mg 08/01/18 12:00 08/03/18 09:24 Norvasc PO 10 mg DAILY LORENE Administration Lipase/Protease/Amylase 1 each 08/01/18 14:57 Pancreaze 10,500 Unit FEEDTUBE PRN PRN For Clogged Feeding Tube Atorvastatin Calcium 40 mg 08/01/18 14:30 08/03/18 09:24 Lipitor PO 40 mg DAILY LORENE Administration Clonidine HCl 0.1 mg 08/01/18 14:00 08/04/18 06:06 Catapres PO 0.1 mg Q8HR LORENE Administration Famotidine 20 mg 08/03/18 10:00 08/03/18 09:24 Pepcid PO 20 mg DAILY LORENE Administration Heparin Sodium (Porcine) 5,000 unit 08/01/18 14:00 08/04/18 06:06 Heparin SUB-Q 5,000 unit Q8HR LORENE Administration Hydrophilic Ointment 1 applic 07/31/18 12:00 Vaseline Lip Therapy TP Q2HR PRN Dry Lips Ceftriaxone Sodium 1 gm in 50 mls @ 100 mls/hr 08/01/18 10:00 08/03/18 09:27 Rocephin/Ns 1 Gm/50 Ml IV 08/07/18 10:29 100 mls/hr Q24HR LORENE Administration Protocol Sodium Chloride 100 mls @ 999 mls/hr 07/31/18 21:53 Nacl 0.9% IV DESIREE PRN Hypotension Levetiracetam 750 mg/ Sodium 107.5 mls @ 400 mls/hr 08/01/18 15:00 08/03/18 21:00 Chloride IV 400 mls/hr Q12HR LORENE Administration Insulin Glargine 35 units 08/03/18 22:00 08/03/18 21:00 Lantus SUB-Q 35 units QHS LORENE Administration Insulin Human Lispro 0 unit 08/03/18 16:30 08/03/18 21:03 Humalog SUB-Q 6 unit ACHS LORENE Administration Protocol Lorazepam 1 mg 08/01/18 11:32 08/04/18 00:58 Ativan IV 1 mg Q4H PRN Administration Agitation Multi-Ingred Cream/Lotion/Oil/Oint 1 applic 07/31/18 12:00 Artificial Tears Ophth Oint OU Q4HR PRN Dry Eye(s) Phenol 1 spray 08/03/18 13:36 08/03/18 18:19 Chloraseptic MM 1 spray PRN PRN Administration Sore Throat Simple Syrup 15 ml 08/01/18 14:57 Simple Syrup FEEDTUBE PRN PRN Hypoglycemia Simple Syrup 30 ml 08/01/18 14:57 Simple Syrup FEEDTUBE PRN PRN Hypoglycemia Sodium Bicarbonate 650 mg 08/01/18 15:00 08/03/18 21:00 Sodium Bicarbonate PO 650 mg BID LORENE Administration Sodium Bicarbonate 325 mg 08/01/18 14:57 Sodium Bicarbonate FEEDTUBE PRN PRN For Clogged Feeding Tube Sodium Chloride 10 ml 07/31/18 22:00 08/03/18 21:11 Sodium Chloride Flush Syringe 10 Ml IV 10 ml BID LORENE Administration Sodium Chloride 10 ml 07/31/18 13:28 Sodium Chloride Flush Syringe 10 Ml IV PRN PRN LINE FLUSH
[2018-08-04] MEDS: HumaLOG SUB-Q SCH ×3 (08:00→17:30)
--- NOTE | 2018-08-04 09:31 | Progress Note ---
Assessment and Plan acute respiratory failure, extubated successfully. Currently with normal oximetry on room air on that side review AMS/metabolic encephalopathy. No fever. EEG reportedly with epileptiform activity- see draft Chronic kidney disease/ESRD Hypertension Recommendations Aspiration precautions Follow-up neurology recommendations, continue antiepileptic therapy MRI HD needs per nephrology Critical care time was 31 minutes of [id number] evaluation and coordination of care Subjective Date of service: 08/04/18 Principal diagnosis: acute respiratory failure, AMS, question of angioedema Interval history: Reports some weakness, no shortness of breath. No chest pain reported. Mildly confused during interview Objective Vital Signs - 12hr 08/03/18 08/03/18 08/03/18 21:30 21:45 22:00 Temperature Pulse Rate 95 H 94 H 92 H Respiratory 19 20 20 Rate Blood Pressure 116/75 124/70 112/71 O2 Sat by Pulse 93 98 Oximetry 08/03/18 08/03/18 08/03/18 22:15 22:30 22:45 Temperature Pulse Rate 91 H 96 H 92 H Respiratory 19 14 18 Rate Blood Pressure 119/66 113/71 126/69 O2 Sat by Pulse 96 94 94 Oximetry 08/03/18 08/03/18 08/03/18 22:51 23:00 23:03 Temperature Pulse Rate 91 H 91 H 93 H Respiratory 22 19 17 Rate Blood Pressure 126/69 119/63 119/63 O2 Sat by Pulse 98 93 99 Oximetry 08/03/18 08/03/18 08/03/18 23:15 23:30 23:45 Temperature Pulse Rate 90 92 H 89 Respiratory 19 19 17 Rate Blood Pressure 117/64 115/64 116/64 O2 Sat by Pulse 92 95 93 Oximetry 08/04/18 08/04/18 08/04/18 00:00 00:15 00:30 Temperature 97.8 F Pulse Rate 87 92 H 92 H Respiratory 17 14 18 Rate Blood Pressure 96/51 112/66 119/70 O2 Sat by Pulse 94 90 92 Oximetry 08/04/18 08/04/18 08/04/18 00:45 00:47 01:00 Temperature Pulse Rate 92 H 93 H 95 H Respiratory 20 18 Rate Blood Pressure 123/75 O2 Sat by Pulse 92 96 Oximetry 08/04/18 08/04/18 08/04/18 01:15 01:30 01:45 Temperature Pulse Rate 93 H 90 91 H Respiratory 22 19 18 Rate Blood Pressure 113/66 108/54 107/61 O2 Sat by Pulse 91 91 95 Oximetry 08/04/18 08/04/18 08/04/18 02:00 02:15 02:30 Temperature Pulse Rate 89 88 90 Respiratory 15 17 19 Rate Blood Pressure 103/58 99/53 103/57 O2 Sat by Pulse 95 93 93 Oximetry 08/04/18 08/04/18 08/04/18 02:45 03:00 03:15 Temperature Pulse Rate 87 94 H 99 H Respiratory 17 18 20 Rate Blood Pressure 100/55 100/55 125/73 O2 Sat by Pulse 94 99 97 Oximetry 08/04/18 08/04/18 08/04/18 03:30 03:45 04:00 Temperature Pulse Rate 99 H 99 H 96 H Respiratory 22 21 19 Rate Blood Pressure 123/81 121/70 117/73 O2 Sat by Pulse 92 93 92 Oximetry 08/04/18 08/04/18 08/04/18 04:15 04:30 04:45 Temperature Pulse Rate 96 H 95 H 99 H Respiratory 20 16 18 Rate Blood Pressure 125/73 120/71 128/79 O2 Sat by Pulse 92 95 98 Oximetry 08/04/18 08/04/18 08/04/18 05:00 05:15 05:30 Temperature Pulse Rate 98 H 97 H 101 H Respiratory 18 19 16 Rate Blood Pressure 133/77 124/76 126/81 O2 Sat by Pulse 94 94 95 Oximetry 08/04/18 08/04/18 08/04/18 05:45 06:00 06:06 Temperature 97.1 F L Pulse Rate 98 H 97 H 101 H Respiratory 18 17 Rate Blood Pressure 140/77 137/76 137/76 O2 Sat by Pulse 95 94 Oximetry 08/04/18 07:52 Temperature Pulse Rate Respiratory Rate Blood Pressure O2 Sat by Pulse 96 Oximetry Constitutional: no acute distress, alert, other (morbidly obese) Eyes: non-icteric Neck: supple Effort: normal Ascultation: Bilateral: clear, diminished breath sounds Percussion: Bilateral: not dull Cardiovascular: regular rate and rhythm Gastrointestinal: normoactive bowel sounds Integumentary: normal Extremities: no cyanosis, no edema Neurologic: non-focal exam (Limited exam), pupils equal and round, CN II-XII normal Psychiatric: other (affect is flat) CBC and BMP: 07/31/18 11:39 07/31/18 11:39 ABG, PT/INR, D-dimer: ABG POC ABG pH 7.510 (7.35-7.45) H 08/03/18 05:03 POC ABG pCO2 35.8 (35-45) 08/03/18 05:03 POC ABG pO2 149 (80-105) H 08/03/18 05:03 POC ABG HCO3 28.6 08/03/18 05:03 POC ABG Total CO2 30 08/03/18 05:03 POC ABG O2 Sat 99 08/03/18 05:03 Abnormal lab findings: Abnormal Labs 07/31/18 07/31/18 07/31/18 11:14 11:39 11:39 RDW 16.3 H [place] % (Auto) 8.4 H POC ABG pH POC ABG pCO2 POC ABG pO2 Chloride 96.6 L BUN 38 H Creatinine 7.5 H Glucose 103 H POC Glucose 157 H Troponin T Triglycerides HDL Cholesterol Urine WBC (Auto) 07/31/18 07/31/18 07/31/18 12:29 12:34 12:37 RDW [place] % (Auto) POC ABG pH POC ABG pCO2 POC ABG pO2 194 H Chloride BUN Creatinine Glucose POC Glucose Troponin T 0.070 H Triglycerides 270 H HDL Cholesterol 31 L Urine WBC (Auto) 114.0 H 08/01/18 08/01/18 08/01/18 03:01 05:15 11:56 RDW [place] % (Auto) POC ABG pH POC ABG pCO2 27.9 L POC ABG pO2 128 H Chloride BUN Creatinine Glucose POC Glucose 251 H 249 H Troponin T Triglycerides HDL Cholesterol Urine WBC (Auto) 08/01/18 08/01/18 08/02/18 17:36 23:32 04:44 RDW [place] % (Auto) POC ABG pH 7.485 H POC ABG pCO2 34.6 L POC ABG pO2 Chloride BUN Creatinine Glucose POC Glucose 205 H 273 H Troponin T Triglycerides HDL Cholesterol Urine WBC (Auto) 08/02/18 08/02/18 08/02/18 05:29 12:45 18:16 RDW [place] % (Auto) POC ABG pH POC ABG pCO2 POC ABG pO2 Chloride BUN Creatinine Glucose POC Glucose 325 H 375 H 295 H Troponin T Triglycerides HDL Cholesterol Urine WBC (Auto) 08/02/18 08/03/18 08/03/18 23:34 05:03 05:21 RDW [place] % (Auto) POC ABG pH 7.510 H POC ABG pCO2 POC ABG pO2 149 H Chloride BUN Creatinine Glucose POC Glucose 284 H 240 H Troponin T Triglycerides HDL Cholesterol Urine WBC (Auto) 08/03/18 08/03/18 08/03/18 06:04 12:02 16:31 RDW [place] % (Auto) POC ABG pH POC ABG pCO2 POC ABG pO2 Chloride BUN Creatinine Glucose POC Glucose 232 H 217 H 128 H Troponin T Triglycerides HDL Cholesterol Urine WBC (Auto) 08/03/18 20:47 RDW [place] % (Auto) POC ABG pH POC ABG pCO2 POC ABG pO2 Chloride BUN Creatinine Glucose POC Glucose 275 H Troponin T Triglycerides HDL Cholesterol Urine WBC (Auto) Chest x-ray: report reviewed, image reviewed Allied health notes reviewed: nursing
[2018-08-04] MEDS: ROCEPHIN/NS 1 GM/50 ML 1 GM/50 ML BAG IV SCH (09:52)
[2018-08-04] MEDS: KEPPRA 750 MG in NACL 0.9% 100 ML IV SCH (09:52)
[2018-08-04] MEDS: NORVASC PO SCH (09:53)
[2018-08-04] MEDS: PEPCID PO SCH (09:53)
[2018-08-04] MEDS: SODIUM BICARBONATE PO SCH ×2 (09:53→22:05)
[2018-08-04] MEDS: SODIUM CHLORIDE FLUSH SYRINGE 10 ML IV SCH (10:06)
--- NOTE | 2018-08-04 14:35 | Progress Note ---
Assessment and Plan Assessment and plan: Assessment/ Plan. Breakthrough Seizures/ Status Epilepticus continue [place]ra Seizure precuations at all times Acute hypoxic resp failure s/p extubation monitor closely supplemental o2 as tolerated ESRD on HD per renal DM I with multiple complications continue Insulin therapy. HTN continue meds h/o CVA with chronic deficits continue mgt Chronic Physical debility fall precautions at all times Toxic metabolic Encephalopathy, resolved. suspect 2/2 seizures. Resolved. Monitor mental status . Chronic medication noncompliance counseled medication compliance. 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 Pt is unresponsive and unable to provide history. Pt history taken from ED staff, and medical record. As per EMS, and ED staff the Pt was found down and unresponsive. Pt seen and evaluated in ED and found to have Angoiedema, ESRD, and Acute Respiratory Failure and inability to protect her airway due to angioedema. Pt Intubated and placed on vent support. Pt admitted to ICU. Pulmonary team consulted in ED. Nephrology team consulted in ED for urgent dialysis. No further history obtainable. Brief Hospital course: Pt has been successfully extubated, is on RA and back to her baseline. She is tolerating her diet well. Pt is stable for transfer out of ICU. Subjective: Reports feeling better, denies CP/SOB/N/V. overnight events reviewed with RN by the bedside, No family at bedside. the inputs and reccs of the specialists greatly appreciated. No further seizure activity. Hospitalist Physical - Constitutional Vitals: Temp Pulse Resp BP Pulse Ox 98.6 F 109 H 15 119/81 96 08/04/18 08:00 08/04/18 13:36 08/04/18 11:00 08/04/18 13:36 08/04/18 11:00 General appearance: Present: no acute distress, other (chronically ill appearing) - EENT Eyes: Present: PERRL, EOM intact ENT: hearing intact, clear oral mucosa - Neck Neck: Present: supple, normal ROM - Respiratory Respiratory: bilateral: rhonchi, negative: rales, wheezing - Cardiovascular Rhythm: regular Heart Sounds: Present: S1 & S2 - Extremities Extremities: pulses symmetrical, No edema, normal temperature - Abdominal General gastrointestinal: soft, non-tender, non-distended, normal bowel sounds - Integumentary Integumentary: Present: clear, warm, dry - Psychiatric Psychiatric: appropriate mood/affect, intact judgment & insight - Neurologic Neurologic: CNII-XII intact, other (chronic deficit from an old stroke) - Allied Health Allied health notes reviewed: nursing, social work, case management Results - Labs CBC & Chem 7: 07/31/18 11:39 07/31/18 11:39 Labs: Laboratory Last Values WBC 9.6 K/mm3 (4.5-11.0) 07/31/18 11:39 RBC 3.89 M/mm3 (3.65-5.03) 07/31/18 11:39 Hgb 11.3 gm/dl (10.1-14.3) 07/31/18 11:39 Hct 35.4 % (30.3-42.9) 07/31/18 11:39 MCV 91 fl (79-97) 07/31/18 11:39 MCH 29 pg (28-32) 07/31/18 11:39 MCHC 32 % (30-34) 07/31/18 11:39 RDW 16.3 % (13.2-15.2) H 07/31/18 11:39 Plt Count 218 K/mm3 (140-440) 07/31/18 11:39 Lymph % (Auto) 30.4 % (13.4-35.0) 07/31/18 11:39 [place] % (Auto) 8.4 % (0.0-7.3) H 07/31/18 11:39 Eos % (Auto) 2.9 % (0.0-4.3) 07/31/18 11:39 Baso % (Auto) 0.8 % (0.0-1.8) 07/31/18 11:39 Lymph # 2.9 K/mm3 (1.2-5.4) 07/31/18 11:39 [place] # 0.8 K/mm3 (0.0-0.8) 07/31/18 11:39 Eos # 0.3 K/mm3 (0.0-0.4) 07/31/18 11:39 Baso # 0.1 K/mm3 (0.0-0.1) 07/31/18 11:39 Seg Neutrophils % 57.5 % (40.0-70.0) 07/31/18 11:39 Seg Neutrophils # 5.5 K/mm3 (1.8-7.7) 07/31/18 11:39 APTT 34.3 Sec. (24.2-36.6) 08/02/18 14:40 POC ABG pH 7.510 (7.35-7.45) H 08/03/18 05:03 POC ABG pCO2 35.8 (35-45) 08/03/18 05:03 POC ABG pO2 149 (80-105) H 08/03/18 05:03 POC ABG HCO3 28.6 08/03/18 05:03 POC ABG Total CO2 30 08/03/18 05:03 POC ABG O2 Sat 99 08/03/18 05:03 POC ABG Base Excess 6 08/03/18 05:03 FiO2 30 % 08/03/18 05:03 Sodium 139 mmol/L (137-145) 07/31/18 11:39 Potassium 4.6 mmol/L (3.6-5.0) 07/31/18 11:39 Chloride 96.6 mmol/L (98-107) L 07/31/18 11:39 Carbon Dioxide 23 mmol/L (22-30) 07/31/18 11:39 Anion Gap 24 mmol/L 07/31/18 11:39 BUN 38 mg/dL (7-17) H 07/31/18 11:39 Creatinine 7.5 mg/dL (0.7-1.2) H 07/31/18 11:39 Estimated GFR 7 ml/min 07/31/18 11:39 BUN/Creatinine Ratio 5 % 07/31/18 11:39 Glucose 103 mg/dL (65-100) H 07/31/18 11:39 POC Glucose 234 (70-105) H 08/04/18 11:54 Calcium 8.9 mg/dL (8.4-10.2) 07/31/18 11:39 Total Bilirubin 0.20 mg/dL (0.1-1.2) 07/31/18 11:39 Direct Bilirubin < 0.2 mg/dL (0-0.2) 07/31/18 11:39 AST 13 units/L (5-40) 07/31/18 11:39 ALT 9 units/L (7-56) 07/31/18 11:39 Alkaline Phosphatase 120 units/L (35-129) 07/31/18 11:39 Ammonia 36.0 umol/L (25-60) 07/31/18 12:29 Troponin T 0.070 ng/mL (0.00-0.029) H 07/31/18 12:29 Total Protein 7.6 g/dL (6.3-8.2) 07/31/18 11:39 Albumin 4.0 g/dL (3.9-5) 07/31/18 11:39 Albumin/Globulin Ratio 1.1 % 07/31/18 11:39 Triglycerides 270 mg/dL (2-149) H 07/31/18 12:29 Cholesterol 143 mg/dL (50-199) 07/31/18 12:29 LDL Cholesterol Direct 74 mg/dL (50-130) 07/31/18 12:29 HDL Cholesterol 31 mg/dL (40-59) L 07/31/18 12:29 Cholesterol/HDL Ratio 4.61 % 07/31/18 12:29 Urine Color Yellow (Yellow) 07/31/18 12:37 Urine Turbidity Slightly-cloudy (Clear) 07/31/18 12:37 Urine pH 7.0 (5.0-7.0) 07/31/18 12:37 Ur Specific [place] 1.010 (1.003-1.030) 07/31/18 12:37 Urine Protein 100 mg/dl mg/dL (Negative) 07/31/18 12:37 Urine Glucose (UA) 150 mg/dL (Negative) 07/31/18 12:37 Urine Ketones Neg mg/dL (Negative) 07/31/18 12:37 Urine Blood Neg (Negative) 07/31/18 12:37 Urine Nitrite Neg (Negative) 07/31/18 12:37 Urine Bilirubin Neg (Negative) 07/31/18 12:37 Urine Urobilinogen < 2.0 mg/dL (<2.0) 07/31/18 12:37 Ur Leukocyte Esterase Lg (Negative) 07/31/18 12:37 Urine WBC (Auto) 114.0 /HPF (0.0-6.0) H 07/31/18 12:37 Urine RBC (Auto) 13.0 /HPF (0.0-6.0) 07/31/18 12:37 U Epithel Cells (Auto) 1.0 /HPF (0-13.0) 07/31/18 12:37 Urine Bacteria (Auto) 2+ /HPF (Negative) 07/31/18 12:37 Urine HCG, Qual Negative (Negative) 07/31/18 12:37 Urine Opiates Screen Presumptive negative 07/31/18 12:37 Urine Methadone Screen Presumptive negative 07/31/18 12:37 Ur Barbiturates Screen Presumptive negative 07/31/18 12:37 Ur Phencyclidine Scrn Presumptive negative 07/31/18 12:37 Ur Amphetamines Screen Presumptive negative 07/31/18 12:37 U Benzodiazepines Scrn Presumptive negative 07/31/18 12:37 Urine Cocaine Screen Presumptive negative 07/31/18 12:37 U Marijuana (THC) Screen Presumptive negative 07/31/18 12:37 Drugs of Abuse Note Disclamer 07/31/18 12:37 - Imaging and Cardiology EKG: report reviewed Chest x-ray: report reviewed Abdominal x-ray: report reviewed CT Scan - head: report reviewed Nutrition/Malnutrition Assess - Dietary Evaluation Nutrition/Malnutrition Findings: Nutrition Notes Start: 08/01/18 13:28 Freq: Status: Active Protocol: Document 08/04/18 11:38 CT (Rec: 08/04/18 11:54 CT [id number]) Co-Sign 08/04/18 11:38 LP Nutrition Notes Initial or Follow up Assessment Current Diagnosis CKD (stage V CKD) Diabetes Hypertension Stroke Other Pertinent Diagnosis AMS, seizure, Acute Resp Failure, HD Current Diet Renal Labs/Tests Reviewed. Pertinent Medications Reviewed. Height 5 ft 3 in Weight 74.6 kg [place] Body Weight (kg) 52.27 BMI 29.1 Subjective/Other Information Pt dicussed during interdisciplinary rounds. Per RN pt is eating and tolerating diet. Burn Absent Trauma Absent #1 Nutrition Diagnosis Inadequate oral intake As Evidenced by Signs and Symptoms RN states pt eating and tolerating PO diet. Diagnosis Progress(for reassessment Improved documentation) Is patient on ventilator? No Is Patient Ambulatory and/or Out of Bed Yes REE-([place]-St. Jeor-ambulatory/OOB) [ 1755.169 [id number]] Kcal/Kg value to use for calculation 15 Approximate Energy Requirements Using 1119 kcal/Kg Calculation Used for Recommendations Kcal/kg Additional Notes PRO: 90g-104g (1.2-1.4g PRO/ daily) Fluid: 1ml/kcal Nutrition Intervention Change Diet Order: Continue Renal. Goal #1 PO intake to meet at least 80% of kcal and PRO needs. Anticipated Discharge Needs: Unable to determine at this time. Follow-Up By: 08/08/18 Additional Comments F/U: intake and tolerance.
--- NOTE | 2018-08-04 19:54 | Magnetic Resonance Report ---
FINAL REPORT EXAM: MR BRAIN WO CON HISTORY: new onset seizure, no contrast ESRDInpatient TECHNIQUE: T1 and T2 weighted sagittal, axial, coronal and diffusion-weighted images of the brain we re obtained. Comparison: Head CT dated June 24, 2017 and MRI brain dated March 05, 2017. FINDINGS: T2 signal abnormality in the deep white matter of the cerebral hemispheres bilaterally most likely re presents chronic post ischemic demyelination/small vessel disease. There are chronic infarcts in the white matter of the [place] radiata bilaterally, anterior corpus chava losum, basal ganglia and thalami bilaterally, right midbrain, right alfred and cerebellum bilaterally. There is no evidence of acute infarct nor intracranial hemorrhage. There is no evidence of intracranial mass. Ventricular size is concordant with the degree of atrophy/volume loss. Expected flow void is demonstrated within the major intracranial vessels. The extracranial structures and craniocervical junction are unremarkable in appearance. IMPRESSION: 1. Chronic post ischemic change in the deep white matter of the cerebral hemispheres bilaterally, cor pus callosum, basal ganglia and thalami bilaterally, right midbrain, right alfred and cerebellum bilate rally. This is similar in appearance to the MRI brain dated March 05, 2017. No evidence of acute infarct.
[2018-08-05] MEDS: HumaLOG SUB-Q SCH ×5 (09:30→23:40)
[2018-08-05] MEDS: SODIUM CHLORIDE FLUSH SYRINGE 10 ML IV SCH ×2 (09:33→22:29)
--- NOTE | 2018-08-05 10:44 | Progress Note ---
Assessment and Plan - Patient Problems (1) ESRD (end stage renal disease) on dialysis Current Visit: Yes Status: Chronic Plan to address problem: Placed orders for HD on a inpatient TTS schedule. (2) Acute respiratory failure with hypoxia Current Visit: Yes Status: Acute Plan to address problem: she has been extubated, and is on room air without any issues. (3) Encephalopathy Current Visit: No Status: Acute Plan to address problem: s/p extubation and patient is back to her baseline mental status. Continues on AED with keppra. (4) Hypertensive chronic kidney disease with stage 5 chronic kidney disease or end stage renal disease Current Visit: Yes Status: Chronic Plan to address problem: Will continue to monitor on current regimen. 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 Subjective Date of service: 08/05/18 Principal diagnosis: acute respiratory failure, AMS, question of angioedema Interval history: No acute issues overnight. Receiving dialysis this am at bedside, and tolerating well. Objective - Vital Signs Vital signs: Vital Signs - 12hr 08/04/18 08/05/18 08/05/18 23:04 05:38 09:35 Temperature 98.4 F 97.9 F 98.2 F Pulse Rate 99 H 95 H 102 H Respiratory 20 20 18 Rate Blood Pressure 146/82 148/91 186/98 O2 Sat by Pulse 81 L 95 Oximetry 08/05/18 08/05/18 08/05/18 09:40 09:45 10:00 Temperature Pulse Rate 103 H 104 H 104 H Respiratory Rate Blood Pressure 179/101 176/79 154/90 O2 Sat by Pulse Oximetry 08/05/18 10:15 Temperature Pulse Rate 106 H Respiratory Rate Blood Pressure 164/85 O2 Sat by Pulse Oximetry - General Appearance General appearance: well-developed, appears stated age EENT: ATNC, PERRL Neck: no JVD, no thyromegaly Respiratory: Present: Clear to Ascultation, Normal Exam Cardiology: regular, S1S2 Gastrointestinal: normal, normoactive bowel sounds Integumentary: no rash, warm and dry Neurologic: no focal deficit, no asterixis Psychiatric: mood/affect appropriate, cooperative - Lab 07/31/18 11:39 07/31/18 11:39 Most recent lab results Calcium 8.9 mg/dL (8.4-10.2) 07/31/18 11:39 - Allied health notes Allied health notes reviewed: nursing Medications & Allergies - Medications Allergies/Adverse Reactions: Allergies ibuprofen Allergy (Verified 06/24/17 17:09) Rash Home Medications: Home Medications Medication Instructions Recorded Confirmed Last Taken Type Amlodipine Besylate 10 mg PO DAILY 08/27/15 08/02/18 08/09/17 History AtorvaSTATin [Lipitor] 40 mg PO DAILY 08/27/15 08/02/18 08/09/17 History Gabapentin 300 mg PO TID 08/27/15 08/02/18 08/09/17 History HumaLOG VIAL 15 unit SQ TID 03/19/17 08/02/18 08/09/17 History oxyCODONE /ACETAMINOPHEN [Percocet 1 tab PO Q6HR PRN #14 tablet 07/28/1708/09/17 Rx 5/325] levETIRAcetam [Keppra TAB] 500 mg PO BID #60 tablet 07/24/18 08/02/18 Unknown Rx Lisinopril [Zestril] 40 mg PO DAILY 08/02/18 08/02/18 Unknown History Active Medications: Generic Name Dose Route Start Last Admin Trade Name Freq PRN Reason Stop Dose Admin Albumin Human 12.5 gm 07/31/18 21:53 Alburx 25% (Albumin) IV DESIREE PRN Hypotension Amlodipine Besylate 10 mg 08/01/18 12:00 08/04/18 09:53 Norvasc PO 10 mg DAILY LORENE Administration Lipase/Protease/Amylase 1 each 08/01/18 14:[address] 10,500 Unit FEEDTUBE PRN PRN For Clogged Feeding Tube Atorvastatin Calcium 40 mg 08/01/18 14:30 08/04/18 09:53 Lipitor PO 40 mg DAILY LORENE Administration Clonidine HCl 0.1 mg 08/01/18 14:00 08/04/18 22:04 Catapres PO 0.1 mg Q8HR LORENE Administration Famotidine 20 mg 08/03/18 10:00 08/04/18 09:53 Pepcid PO 20 mg DAILY LORENE Administration Heparin Sodium (Porcine) 5,000 unit 08/01/18 14:00 08/04/18 22:05 Heparin SUB-Q 5,000 unit Q8HR LORENE Administration Hydrophilic Ointment 1 applic 07/31/18 12:00 Vaseline Lip Therapy TP Q2HR PRN Dry Lips Ceftriaxone Sodium 1 gm in 50 mls @ 100 mls/hr 08/01/18 10:00 08/04/18 09:52 Rocephin/Ns 1 Gm/50 Ml IV 08/07/18 10:29 100 mls/hr Q24HR LORENE Administration Protocol Sodium Chloride 100 mls @ 999 mls/hr 07/31/18 21:53 Nacl 0.9% IV DESIREE PRN Hypotension Levetiracetam 750 mg/ Sodium 107.5 mls @ 400 mls/hr 08/01/18 15:00 08/04/18 09:52 Chloride IV 08/05/18 23:59 400 mls/hr Q12HR LORENE Administration Insulin Glargine 35 units 08/03/18 22:00 08/03/18 21:00 Lantus SUB-Q 35 units QHS LORENE Administration Insulin Human Lispro 0 unit 08/03/18 16:30 08/05/18 09:31 Humalog SUB-Q 6 unit ACHS LORENE Administration Protocol Levetiracetam 750 mg 08/06/18 10:00 Keppra PO BID LORENE Lorazepam 1 mg 08/01/18 11:32 08/04/18 00:58 Ativan IV 1 mg Q4H PRN Administration Agitation Multi-Ingred Cream/Lotion/Oil/Oint 1 applic 07/31/18 12:00 Artificial Tears Ophth Oint OU Q4HR PRN Dry Eye(s) Phenol 1 spray 08/03/18 13:36 08/03/18 18:19 Chloraseptic MM 1 spray PRN PRN Administration Sore Throat Simple Syrup 15 ml 08/01/18 14:57 Simple Syrup FEEDTUBE PRN PRN Hypoglycemia Simple Syrup 30 ml 08/01/18 14:57 Simple Syrup FEEDTUBE PRN PRN Hypoglycemia Sodium Bicarbonate 650 mg 08/01/18 15:00 08/04/18 22:05 Sodium Bicarbonate PO 650 mg BID LORENE Administration Sodium Bicarbonate 325 mg 08/01/18 14:57 Sodium Bicarbonate FEEDTUBE PRN PRN For Clogged Feeding Tube Sodium Chloride 10 ml 07/31/18 22:00 08/05/18 09:33 Sodium Chloride Flush Syringe 10 Ml IV 10 ml BID LORENE Administration Sodium Chloride 10 ml 07/31/18 13:28 Sodium Chloride Flush Syringe 10 Ml IV PRN PRN LINE FLUSH
--- NOTE | 2018-08-05 12:03 | Progress Note ---
Assessment and Plan Acute respiratory failure, off ventilator support successfully. No respiratory events after transfer to [facility] AMS/metabolic encephalopathy. No fever. EEG reportedly with epileptiform activity- see draft. MRI with chronic changes, see report Chronic kidney disease/ESRD Hypertension Recommendations Aspiration precautions Follow-up neurology recommendations, continue antiepileptic therapy HD needs per nephrology Discussed with patient in detail. All questions answered. Subjective Date of service: 08/05/18 Principal diagnosis: acute respiratory failure, AMS, question of angioedema Interval history: Feels much better. Currently on hemodialysis Objective Vital Signs - 12hr 08/05/18 08/05/18 08/05/18 05:38 09:35 09:40 Temperature 97.9 F 98.2 F Pulse Rate 95 H 102 H 103 H Respiratory 20 18 Rate Blood Pressure 148/91 186/98 179/101 O2 Sat by Pulse 95 Oximetry 08/05/18 08/05/18 08/05/18 09:45 10:00 10:15 Temperature Pulse Rate 104 H 104 H 106 H Respiratory Rate Blood Pressure 176/79 154/90 164/85 O2 Sat by Pulse Oximetry 08/05/18 08/05/18 08/05/18 10:30 10:45 11:00 Temperature Pulse Rate 108 H 109 H 109 H Respiratory Rate Blood Pressure 149/88 138/75 144/66 O2 Sat by Pulse Oximetry 08/05/18 08/05/18 11:15 11:30 Temperature Pulse Rate 108 H 111 H Respiratory Rate Blood Pressure 143/76 124/64 O2 Sat by Pulse Oximetry Constitutional: no acute distress, alert, other (morbidly obese) Eyes: non-icteric Neck: supple, no JVD Effort: normal Ascultation: Bilateral: clear, diminished breath sounds Percussion: Bilateral: not dull Cardiovascular: regular rate and rhythm Gastrointestinal: normoactive bowel sounds Integumentary: normal Extremities: no cyanosis, no edema Neurologic: normal mental status (somewhat slow response to questions), non- focal exam (Limited exam), pupils equal and round, CN II-XII normal Psychiatric: mood appropriate CBC and BMP: 07/31/18 11:39 07/31/18 11:39 ABG, PT/INR, D-dimer: ABG POC ABG pH 7.510 (7.35-7.45) H 08/03/18 05:03 POC ABG pCO2 35.8 (35-45) 08/03/18 05:03 POC ABG pO2 149 (80-105) H 08/03/18 05:03 POC ABG HCO3 28.6 08/03/18 05:03 POC ABG Total CO2 30 08/03/18 05:03 POC ABG O2 Sat 99 08/03/18 05:03 Abnormal lab findings: Abnormal Labs 07/31/18 07/31/18 07/31/18 11:14 11:39 11:39 RDW 16.3 H [place] % (Auto) 8.4 H POC ABG pH POC ABG pCO2 POC ABG pO2 Chloride 96.6 L BUN 38 H Creatinine 7.5 H Glucose 103 H POC Glucose 157 H Troponin T Triglycerides HDL Cholesterol Urine WBC (Auto) 07/31/18 07/31/18 07/31/18 12:29 12:34 12:37 RDW [place] % (Auto) POC ABG pH POC ABG pCO2 POC ABG pO2 194 H Chloride BUN Creatinine Glucose POC Glucose Troponin T 0.070 H Triglycerides 270 H HDL Cholesterol 31 L Urine WBC (Auto) 114.0 H 08/01/18 08/01/18 08/01/18 03:01 05:15 11:56 RDW [place] % (Auto) POC ABG pH POC ABG pCO2 27.9 L POC ABG pO2 128 H Chloride BUN Creatinine Glucose POC Glucose 251 H 249 H Troponin T Triglycerides HDL Cholesterol Urine WBC (Auto) 08/01/18 08/01/18 08/02/18 17:36 23:32 04:44 RDW [place] % (Auto) POC ABG pH 7.485 H POC ABG pCO2 34.6 L POC ABG pO2 Chloride BUN Creatinine Glucose POC Glucose 205 H 273 H Troponin T Triglycerides HDL Cholesterol Urine WBC (Auto) 08/02/18 08/02/18 08/02/18 05:29 12:45 18:16 RDW [place] % (Auto) POC ABG pH POC ABG pCO2 POC ABG pO2 Chloride BUN Creatinine Glucose POC Glucose 325 H 375 H 295 H Troponin T Triglycerides HDL Cholesterol Urine WBC (Auto) 08/02/18 08/03/18 08/03/18 23:34 05:03 05:21 RDW [place] % (Auto) POC ABG pH 7.510 H POC ABG pCO2 POC ABG pO2 149 H Chloride BUN Creatinine Glucose POC Glucose 284 H 240 H Troponin T Triglycerides HDL Cholesterol Urine WBC (Auto) 08/03/18 08/03/18 08/03/18 06:04 12:02 16:31 RDW [place] % (Auto) POC ABG pH POC ABG pCO2 POC ABG pO2 Chloride BUN Creatinine Glucose POC Glucose 232 H 217 H 128 H Troponin T Triglycerides HDL Cholesterol Urine WBC (Auto) 08/03/18 08/04/18 08/04/18 20:47 07:47 11:54 RDW [place] % (Auto) POC ABG pH POC ABG pCO2 POC ABG pO2 Chloride BUN Creatinine Glucose POC Glucose 275 H 110 H 234 H Troponin T Triglycerides HDL Cholesterol Urine WBC (Auto) 08/04/18 08/04/18 08/05/18 16:58 21:24 08:00 RDW [place] % (Auto) POC ABG pH POC ABG pCO2 POC ABG pO2 Chloride BUN Creatinine Glucose POC Glucose 240 H 188 H 264 H Troponin T Triglycerides HDL Cholesterol Urine WBC (Auto) 08/05/18 10:57 RDW [place] % (Auto) POC ABG pH POC ABG pCO2 POC ABG pO2 Chloride BUN Creatinine Glucose POC Glucose 234 H Troponin T Triglycerides HDL Cholesterol Urine WBC (Auto) Allied health notes reviewed: nursing
[2018-08-05] MEDS: NORVASC PO SCH (13:55)
[2018-08-05] MEDS: SODIUM BICARBONATE PO SCH ×2 (13:55→22:18)
[2018-08-05] MEDS: PEPCID PO SCH (13:56)
[2018-08-05] MEDS: CATAPRES PO SCH ×2 (13:56→22:40)
[2018-08-05] MEDS: KEPPRA 750 MG in NACL 0.9% 100 ML IV SCH ×2 (13:56→22:28)
[2018-08-05] MEDS: HEPARIN SUB-Q SCH ×2 (13:59→22:15)
[2018-08-05] MEDS: ROCEPHIN/NS 1 GM/50 ML 1 GM/50 ML BAG IV SCH (13:59)
--- NOTE | 2018-08-05 15:45 | Progress Note ---
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 In the ED pat ient thought to have angioedema although unsure of etiology, Only new medication is Keppra. Fram chart review, patient has no hx of seizure Patient remains intubated in the ICU with no change in mental status and remains unresponsive despite sedative being turned off. CT head negative for Acute infarct. shows chronic lacunar infarct CXR unremarkable except for ET tube. Extubated to 08/04/18. Transfer to the floor. Remains awake but confused Breakthrough Seizures/ Status Epilepticus continue Keppra Seizure precuations at all times Acute hypoxic resp failure s/p extubation monitor closely supplemental o2 as tolerated ESRD on HD per renal DM I with multiple complications continue Insulin therapy. HTN continue meds h/o CVA with chronic deficits continue mgt Chronic Physical debility fall precautions at all times Toxic metabolic Encephalopathy, resolved. suspect 2/2 seizures. Resolved. Monitor mental status . Chronic medication noncompliance counseled medication compliance. UTI continue IV antibiotics Disposition Plan: Continue with current management plan. Discharged when medically stable Total Time Spent with Patient (Minutes): more than 30 mins spent Subjective Date of service: 08/05/18 Principal diagnosis: acute respiratory failure, AMS, question of angioedema Interval history: Patient seen and examined. Awake but confused. Objective - Exam Narrative Exam: Constitutional: Awake. Confused. Well-nourished well-developed. In no distress Head: Normocephalic atraumatic Eyes: Pupils are equal round and reactive to light Nose: No enlarged turbinates, no septal deviation. Mouth: Moist mucous membranes. Neck: Supple no thyromegaly. No bruit. No JVD Heart: Regular rate and rhythm, S1-S2 normal. No rubs murmurs or gallop Lungs: Clear to auscultation bilaterally. no rales or rhonchi Abdomen: Soft, nontender. Bowel sound are present. Extremities: No edema, no cyanosis, no clubbing. Neuro: Slow speech. Confused. Chronic new deficits from stroke. Skin: No rashes or hyperpigmented spots Musculoskeletal system: No joint pain or swelling Hematological: No petechia or subcutanous hemorrhages. Immunological: No multiple septic spots on the skin Lymphatic: No generalized lymphadenopathy Psychiatry: Confused. - Constitutional Vitals: Vital Signs - 12hr 08/05/18 08/05/18 08/05/18 05:38 09:35 09:40 Temperature 97.9 F 98.2 F Pulse Rate 95 H 102 H 103 H Respiratory 20 18 Rate Respiratory Rate [Back] Respiratory Rate [Leg] Blood Pressure 148/91 186/98 179/101 O2 Sat by Pulse 95 Oximetry 08/05/18 08/05/18 08/05/18 09:45 10:00 10:15 Temperature Pulse Rate 104 H 111 H 106 H Respiratory Rate Respiratory 12 Rate [Back] Respiratory 12 Rate [Leg] Blood Pressure 176/79 154/90 164/85 O2 Sat by Pulse Oximetry 08/05/18 08/05/18 08/05/18 10:30 10:45 11:00 Temperature Pulse Rate 108 H 109 H 109 H Respiratory Rate Respiratory Rate [Back] Respiratory Rate [Leg] Blood Pressure 149/88 138/75 144/66 O2 Sat by Pulse Oximetry 08/05/18 08/05/18 08/05/18 11:15 11:30 11:45 Temperature Pulse Rate 108 H 111 H 112 H Respiratory Rate Respiratory Rate [Back] Respiratory Rate [Leg] Blood Pressure 143/76 124/64 138/49 O2 Sat by Pulse Oximetry 08/05/18 08/05/18 08/05/18 12:00 12:15 12:30 Temperature Pulse Rate 113 H 111 H 110 H Respiratory Rate Respiratory Rate [Back] Respiratory Rate [Leg] Blood Pressure 123/66 138/76 137/76 O2 Sat by Pulse Oximetry 08/05/18 08/05/18 08/05/18 12:45 13:00 13:11 Temperature Pulse Rate 110 H 109 H 108 H Respiratory Rate Respiratory Rate [Back] Respiratory Rate [Leg] Blood Pressure 117/74 126/73 161/83 O2 Sat by Pulse Oximetry 08/05/18 08/05/18 08/05/18 13:37 13:55 13:56 Temperature 97.2 F L Pulse Rate 111 H 111 H 111 H Respiratory 18 Rate Respiratory Rate [Back] Respiratory Rate [Leg] Blood Pressure 152/75 152/75 152/75 O2 Sat by Pulse Oximetry - Labs CBC & Chem 7: 07/31/18 11:39 07/31/18 11:39 Labs: Abnormal lab results 08/04/18 08/04/18 08/05/18 Range/Units 16:58 21:24 08:00 POC Glucose 240 H 188 H 264 H (70-105) 08/05/18 Range/Units 10:57 POC Glucose 234 H (70-105)
[2018-08-05] MEDS: CHLORASEPTIC MM PRN (17:28)
[2018-08-05] MEDS: LANTUS SUB-Q SCH (22:30)
[2018-08-06] MEDS: HumaLOG SUB-Q SCH ×4 (09:05→17:21)
[2018-08-06] MEDS: KEPPRA PO SCH ×2 (10:28→22:09)
[2018-08-06] MEDS: SODIUM BICARBONATE PO SCH ×2 (10:28→22:16)
[2018-08-06] MEDS: SODIUM CHLORIDE FLUSH SYRINGE 10 ML IV SCH ×2 (10:29→22:11)
[2018-08-06] MEDS: NORVASC PO SCH (10:29)
[2018-08-06] MEDS: ROCEPHIN/NS 1 GM/50 ML 1 GM/50 ML BAG IV SCH (10:30)
[2018-08-06] MEDS: PEPCID PO SCH (10:30)
--- NOTE | 2018-08-06 11:03 | Progress Note ---
Assessment and Plan - Patient Problems (1) ESRD (end stage renal disease) on dialysis Current Visit: Yes Status: Chronic Plan to address problem: Placed orders for HD on a inpatient TTS schedule. (2) Acute respiratory failure with hypoxia Current Visit: Yes Status: Acute Plan to address problem: she has been extubated, and is on room air without any issues. (3) Encephalopathy Current Visit: No Status: Acute Plan to address problem: s/p extubation and patient is back to her baseline mental status. Continues on AED with keppra. (4) Hypertensive chronic kidney disease with stage 5 chronic kidney disease or end stage renal disease Current Visit: Yes Status: Chronic Plan to address problem: Will continue to monitor on current regimen. (5) Type 2 diabetes mellitus with diabetic chronic kidney disease Current Visit: No Status: Chronic Qualifiers: Diabetes mellitus manager intermediate insulin use: with manager intermediate use Chronic kidney disease stage: on chronic dialysis Qualified Code(s): E11.22 - Type 2 diabetes mellitus with diabetic chronic kidney disease; N18.6 - End stage renal disease; Z79.4 - longterm (current) use of insulin; Z99.2 - Dependence on renal dialysis Plan to address problem: Management per primary team. Subjective Date of service: 08/06/18 Principal diagnosis: acute respiratory failure, AMS, question of angioedema Interval history: No acute issues overnight. Tolerated HD well yesterday without any issues. Objective - Vital Signs Vital signs: Vital Signs - 12hr 08/06/18 08/06/18 05:17 10:29 Temperature 98.5 F Pulse Rate 102 H Respiratory 20 Rate Blood Pressure 129/76 168/100 O2 Sat by Pulse 94 Oximetry - General Appearance General appearance: well-developed, well-nourished, appears stated age EENT: ATNC, PERRL Neck: no JVD, no thyromegaly Respiratory: Present: Clear to Ascultation, Normal Exam Cardiology: regular, S1S2 Gastrointestinal: normal, normoactive bowel sounds Integumentary: no rash, warm and dry Neurologic: no focal deficit, no asterixis Musculoskeletal: other (-edema ) Psychiatric: cooperative - Lab 07/31/18 11:39 07/31/18 11:39 Most recent lab results Calcium 8.9 mg/dL (8.4-10.2) 07/31/18 11:39 - Allied health notes Allied health notes reviewed: nursing Medications & Allergies - Medications Allergies/Adverse Reactions: Allergies ibuprofen Allergy (Verified 06/24/17 17:09) Rash Home Medications: Home Medications Medication Instructions Recorded Confirmed Last Taken Type Amlodipine Besylate 10 mg PO DAILY 08/27/15 08/02/18 08/09/17 History AtorvaSTATin [Lipitor] 40 mg PO DAILY 08/27/15 08/02/18 08/09/17 History Gabapentin 300 mg PO TID 08/27/15 08/02/18 08/09/17 History HumaLOG VIAL 15 unit SQ TID 03/19/17 08/02/18 08/09/17 History oxyCODONE /ACETAMINOPHEN [Percocet 1 tab PO Q6HR PRN #14 tablet 07/28/17 08/02/18 08/09/17 Rx 5/325] levETIRAcetam [Keppra TAB] 500 mg PO BID #60 tablet 07/24/18 08/02/18 Unknown Rx Lisinopril [Zestril] 40 mg PO DAILY 08/02/18 08/02/18 Unknown History Active Medications: Generic Name Dose Route Start Last Admin Trade Name Freq PRN Reason Stop Dose Admin Albumin Human 12.5 gm 07/31/18 21:53 Alburx 25% (Albumin) IV DESIREE PRN Hypotension Amlodipine Besylate 10 mg 08/01/18 12:00 08/06/18 10:29 Norvasc PO 10 mg DAILY LORENE Administration Lipase/Protease/Amylase 1 each 08/01/18 14:[address] 10,500 Unit FEEDTUBE PRN PRN For Clogged Feeding Tube Atorvastatin Calcium 40 mg 08/01/18 14:30 08/06/18 10:29 Lipitor PO 40 mg DAILY LORENE Administration Clonidine HCl 0.1 mg 08/01/18 14:00 08/05/18 22:40 Catapres PO 0.1 mg Q8HR LORENE Administration Famotidine 20 mg 08/03/18 10:00 08/06/18 10:30 Pepcid PO 20 mg DAILY LORENE Administration Heparin Sodium (Porcine) 5,000 unit 08/01/18 14:00 08/05/18 22:15 Heparin SUB-Q 5,000 unit Q8HR LORENE Administration Hydrophilic Ointment 1 applic 07/31/18 12:00 Vaseline Lip Therapy TP Q2HR PRN Dry Lips Ceftriaxone Sodium 1 gm in 50 mls @ 100 mls/hr 08/01/18 10:00 08/06/18 10:30 Rocephin/Ns 1 Gm/50 Ml IV 08/07/18 10:29 100 mls/hr Q24HR LORENE Administration Protocol Sodium Chloride 100 mls @ 999 mls/hr 07/31/18 21:53 Nacl 0.9% IV DESIREE PRN Hypotension Insulin Glargine 35 units 08/03/18 22:00 08/05/18 22:30 Lantus SUB-Q 35 units QHS LOERNE Administration Insulin Human Lispro 0 unit 08/03/18 16:30 08/06/18 09:05 Humalog SUB-Q 4 unit ACHS LORENE Administration Protocol Levetiracetam 750 mg 08/06/18 10:00 08/06/18 10:28 Keppra PO 750 mg BID LORENE Administration Lorazepam 1 mg 08/01/18 11:32 08/04/18 00:58 Ativan IV 1 mg Q4H PRN Administration Agitation Multi-Ingred Cream/Lotion/Oil/Oint 1 applic 07/31/18 12:00 Artificial Tears Ophth Oint OU Q4HR PRN Dry Eye(s) Phenol 1 spray 08/03/18 13:36 08/05/18 17:28 Chloraseptic MM 1 spray PRN PRN Administration Sore Throat Simple Syrup 15 ml 08/01/18 14:57 Simple Syrup FEEDTUBE PRN PRN Hypoglycemia Simple Syrup 30 ml 08/01/18 14:57 Simple Syrup FEEDTUBE PRN PRN Hypoglycemia Sodium Bicarbonate 650 mg 08/01/18 15:00 08/06/18 10:28 Sodium Bicarbonate PO 650 mg BID LORENE Administration Sodium Bicarbonate 325 mg 08/01/18 14:57 Sodium Bicarbonate FEEDTUBE PRN PRN For Clogged Feeding Tube Sodium Chloride 10 ml 07/31/18 22:00 08/06/18 10:29 Sodium Chloride Flush Syringe 10 Ml IV 10 ml BID LORENE Administration Sodium Chloride 10 ml 07/31/18 13:28 Sodium Chloride Flush Syringe 10 Ml IV PRN PRN LINE FLUSH
[2018-08-06] MEDS: CHLORASEPTIC MM PRN (15:40)
[2018-08-06] MEDS: CATAPRES PO SCH ×2 (17:00→22:14)
[2018-08-06] MEDS: HEPARIN SUB-Q SCH ×2 (17:06→22:08)
--- NOTE | 2018-08-06 17:20 | Progress Note ---
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 In the ED pat ient thought to have angioedema although unsure of etiology, Only new medication is Keppra. Fram chart review, patient has no hx of seizure Patient remains intubated in the ICU with no change in mental status and remains unresponsive despite sedative being turned off. CT head negative for Acute infarct. shows chronic lacunar infarct CXR unremarkable except for ET tube. Extubated to 08/04/18. Transfer to the floor. Remains awake but confused Breakthrough Seizures/ Status Epilepticus continue Keppra Seizure precuations at all times Acute hypoxic resp failure s/p extubation monitor closely supplemental o2 as tolerated ESRD on HD per renal DM I with multiple complications continue Insulin therapy. HTN continue meds h/o CVA with chronic deficits continue mgt Chronic Physical debility fall precautions at all times Toxic metabolic Encephalopathy, resolved. suspect 2/2 seizures. Resolved. Monitor mental status . Chronic medication noncompliance counseled medication compliance. UTI continue IV antibiotics Disposition Plan: Continue with current management plan. Discharged when medically stable Total Time Spent with Patient (Minutes): more than 25 mins spent Subjective Date of service: 08/06/18 Principal diagnosis: acute respiratory failure, AMS, question of angioedema Interval history: Patient seen and examined. Awake but confused. Objective - Exam Narrative Exam: Constitutional: Awake. Confused. Well-nourished well-developed. In no distress Head: Normocephalic atraumatic Eyes: Pupils are equal round and reactive to light Nose: No enlarged turbinates, no septal deviation. Mouth: Moist mucous membranes. Neck: Supple no thyromegaly. No bruit. No JVD Heart: Regular rate and rhythm, S1-S2 normal. No rubs murmurs or gallop Lungs: Clear to auscultation bilaterally. no rales or rhonchi Abdomen: Soft, nontender. Bowel sound are present. Extremities: No edema, no cyanosis, no clubbing. Neuro: Slow speech. Confused. Chronic new deficits from stroke. Skin: No rashes or hyperpigmented spots Musculoskeletal system: No joint pain or swelling Hematological: No petechia or subcutanous hemorrhages. Immunological: No multiple septic spots on the skin Lymphatic: No generalized lymphadenopathy Psychiatry: Confused. - Constitutional Vitals: Vital Signs - 12hr 08/06/18 08/06/18 08/06/18 10:00 10:29 11:48 Temperature 97.9 F Pulse Rate 106 H 106 H Respiratory 18 Rate Blood Pressure 168/100 126/93 O2 Sat by Pulse 99 Oximetry 08/06/18 17:00 Temperature Pulse Rate 106 H Respiratory Rate Blood Pressure 126/93 O2 Sat by Pulse Oximetry - Labs CBC & Chem 7: 07/31/18 11:39 07/31/18 11:39 Labs: Abnormal lab results 08/05/18 08/06/18 08/06/18 Range/Units 21:27 07:27 11:06 POC Glucose 247 H 204 H 249 H (70-105) 08/06/18 Range/Units 16:29 POC Glucose 132 H (70-105)
[2018-08-07] MEDS: LANTUS SUB-Q SCH ×3 (01:14→21:52)
[2018-08-07] MEDS: HumaLOG SUB-Q SCH ×5 (01:15→21:52)
[2018-08-07] MEDS: HEPARIN SUB-Q SCH ×5 (06:52→21:49)
[2018-08-07] MEDS: CATAPRES PO SCH ×5 (06:53→21:51)
--- NOTE | 2018-08-07 07:53 | Progress Note ---
Assessment and Plan - Patient Problems (1) ESRD (end stage renal disease) on dialysis Current Visit: Yes Status: Chronic Plan to address problem: Continue hemodialysis on a Tuesday, and Tuesday schedule. Okay to discharge from renal standpoint. Follow up at outpatient dialysis tomorrow (2) Hypertensive chronic kidney disease with stage 5 chronic kidney disease or end stage renal disease Current Visit: Yes Status: Chronic Plan to address problem: Follow-up blood pressure on current medications (3) Encephalopathy Current Visit: No Status: Acute Plan to address problem: Resolve. Patient back to her baseline (4) History of CVA with residual deficit Current Visit: No Status: Chronic Plan to address problem: Continue treatment (5) Type 2 diabetes mellitus with diabetic chronic kidney disease Current Visit: No Status: Chronic Qualifiers: Diabetes mellitus manager intermediate insulin use: with mcc use Chronic kidney disease stage: on chronic dialysis Qualified Code(s): E11.22 - Type 2 diabetes mellitus with diabetic chronic kidney disease; N18.6 - End stage renal disease; Z79.4 - termination clerk (current) use of insulin; Z99.2 - Dependence on renal dialysis Plan to address problem: Blood sugar management by primary attending (6) Angioedema Current Visit: Yes Status: Acute Plan to address problem: Possible angioedema but no incriminating medication (7) Seizure Current Visit: No Status: Acute Plan to address problem: Suspected breakthrough seizures. Been treated with Keppra Subjective Date of service: 08/07/18 Principal diagnosis: acute respiratory failure, AMS, question of angioedema Interval history: Patient seen lying in bed. No C/o. No chest pain/SOB/ Nausea or vomiting Objective - Exam Narrative Exam: Middle-aged -[place] female lying in bed in no acute distress HEENT: NCAT, pink oral mucous membrane Neck: Supple, no venous distention CVS: S1S2 RRR with no murmur, rub or gallop Chest: Clear to auscultation Abdomen: Protuberant, soft, nontender, no organomegaly, bowel sounds are present Extremities: No edema Neuro: Awake, alert hemiplegia - Vital Signs Vital signs: Vital Signs - 12hr 08/06/18 08/06/18 08/07/18 22:14 23:32 05:42 Temperature 99.0 F 98.8 F Pulse Rate 100 H 111 H 99 H Respiratory 20 20 Rate Blood Pressure 150/79 171/90 126/82 O2 Sat by Pulse 94 97 Oximetry 08/07/18 06:53 Temperature Pulse Rate 99 H Respiratory Rate Blood Pressure 126/82 O2 Sat by Pulse Oximetry - Lab 07/31/18 11:39 07/31/18 11:39 Most recent lab results Calcium 8.9 mg/dL (8.4-10.2) 07/31/18 11:39 Medications & Allergies - Medications Allergies/Adverse Reactions: Allergies ibuprofen Allergy (Verified 06/24/17 17:09) Rash Home Medications: Home Medications Medication Instructions Recorded Confirmed Last Taken Type Amlodipine Besylate 10 mg PO DAILY 08/27/15 08/02/18 08/09/17 History AtorvaSTATin [Lipitor] 40 mg PO DAILY 08/27/15 08/02/18 08/09/17 History Gabapentin 300 mg PO TID 08/27/15 08/02/18 08/09/17 History HumaLOG VIAL 15 unit SQ TID 03/19/17 08/02/18 08/09/17 History oxyCODONE /ACETAMINOPHEN [Percocet 1 tab PO Q6HR PRN #14 tablet 07/28/17 08/02/18 08/09/17 Rx 5/325] levETIRAcetam [Keppra TAB] 500 mg PO BID #60 tablet 07/24/18 08/02/18 Unknown Rx Lisinopril [Zestril] 40 mg PO DAILY 08/02/18 08/02/18 Unknown History Active Medications: Generic Name Dose Route Start Last Admin Trade Name Freq PRN Reason Stop Dose Admin Albumin Human 12.5 gm 07/31/18 21:53 Alburx 25% (Albumin) IV DESIREE PRN Hypotension Amlodipine Besylate 10 mg 08/01/18 12:00 08/06/18 10:29 Norvasc PO 10 mg DAILY LORENE Administration Lipase/Protease/Amylase 1 each 08/01/18 14:[address] 10,500 Unit FEEDTUBE PRN PRN For Clogged Feeding Tube Atorvastatin Calcium 40 mg 08/01/18 14:30 08/06/18 10:29 Lipitor PO 40 mg DAILY LORENE Administration Clonidine HCl 0.1 mg 08/01/18 14:00 08/07/18 06:55 Catapres PO Not Given Q8HR LORENE Famotidine 20 mg 08/03/18 10:00 08/06/18 10:30 Pepcid PO 20 mg DAILY LORENE Administration Heparin Sodium (Porcine) 5,000 unit 08/01/18 14:00 08/07/18 06:55 Heparin SUB-Q Not Given Q8HR [facility] Hydrophilic Ointment 1 applic 07/31/18 12:00 Vaseline Lip Therapy TP Q2HR PRN Dry Lips Ceftriaxone Sodium 1 gm in 50 mls @ 100 mls/hr 08/01/18 10:00 08/06/18 10:30 Rocephin/Ns 1 Gm/50 Ml IV 08/07/18 10:29 100 mls/hr Q24HR LORENE Administration Protocol Sodium Chloride 100 mls @ 999 mls/hr 07/31/18 21:53 Nacl 0.9% IV DESIREE PRN Hypotension Insulin Glargine 35 units 08/03/18 22:00 08/07/18 01:16 Lantus SUB-Q 35 units QHS LORENE Administration Insulin Human Lispro 0 unit 08/03/18 16:30 08/07/18 01:15 Humalog SUB-Q 6 unit ACHS LORENE Administration Protocol Levetiracetam 750 mg 08/06/18 10:00 08/06/18 22:09 Keppra PO 750 mg BID LORENE Administration Lorazepam 1 mg 08/01/18 11:32 08/04/18 00:58 Ativan IV 1 mg Q4H PRN Administration Agitation Multi-Ingred Cream/Lotion/Oil/Oint 1 applic 07/31/18 12:00 Artificial Tears Ophth Oint OU Q4HR PRN Dry Eye(s) Phenol 1 spray 08/03/18 13:36 08/06/18 15:40 Chloraseptic MM 1 spray PRN PRN Administration Sore Throat Simple Syrup 15 ml 08/01/18 14:57 Simple Syrup FEEDTUBE PRN PRN Hypoglycemia Simple Syrup 30 ml 08/01/18 14:57 Simple Syrup FEEDTUBE PRN PRN Hypoglycemia Sodium Bicarbonate 650 mg 08/01/18 15:00 08/06/18 22:16 Sodium Bicarbonate PO 650 mg BID LORENE Administration Sodium Bicarbonate 325 mg 08/01/18 14:57 Sodium Bicarbonate FEEDTUBE PRN PRN For Clogged Feeding Tube Sodium Chloride 10 ml 07/31/18 22:00 08/06/18 22:11 Sodium Chloride Flush Syringe 10 Ml IV 10 ml BID LORENE Administration Sodium Chloride 10 ml 07/31/18 13:28 Sodium Chloride Flush Syringe 10 Ml IV PRN PRN LINE FLUSH
[2018-08-07] MEDS: PEPCID PO SCH (09:42)
[2018-08-07] MEDS: SODIUM BICARBONATE PO SCH ×2 (09:42→21:50)
[2018-08-07] MEDS: ROCEPHIN/NS 1 GM/50 ML 1 GM/50 ML BAG IV SCH (09:42)
[2018-08-07] MEDS: KEPPRA PO SCH ×2 (09:42→21:49)
[2018-08-07] MEDS: NORVASC PO SCH (09:44)
[2018-08-07 11:18] LABS: Albumin 3.3 g/dL (3.9-5); Calcium 9.3 mg/dL (8.4-10.2)
[2018-08-07 13:13] LABS: Basophils # (Auto) 0.2 K/mm3 (0.0-0.1); Basophils % (Auto) 1.3 % (0.0-1.8); Eosinophils # (Auto) 0.5 K/mm3 (0.0-0.4); Eosinophils % (Auto) 3.4 % (0.0-4.3); Hematocrit 34.7 % (30.3-42.9); Hemoglobin 11.3 gm/dl (10.1-14.3); Lymphocytes # (Auto) 2.7 K/mm3 (1.2-5.4); Lymphocytes % (Auto) 20.4 % (13.4-35.0); Mean Corpuscular HGB Conc 33 % (30-34); Mean Corpuscular Volume 88 fl (79-97); Monocytes # (Auto) 1.3 K/mm3 (0.0-0.8); Monocytes % (Auto) 9.6 % (0.0-7.3); Red Blood Count 3.94 M/mm3 (3.65-5.03); Red Cell Distribution Width 16.1 % (13.2-15.2)
[2018-08-07 13:54] LABS: Platelet Count 154 K/mm3 (140-440)
[2018-08-07] MEDS: SODIUM CHLORIDE FLUSH SYRINGE 10 ML IV SCH ×2 (15:10→21:53)
--- NOTE | 2018-08-07 15:34 | Progress Note ---
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 In the ED pat ient thought to have angioedema although unsure of etiology, Only new medication is Keppra. Fram chart review, patient has no hx of seizure Patient remains intubated in the ICU with no change in mental status and remains unresponsive despite sedative being turned off. CT head negative for Acute infarct. shows chronic lacunar infarct CXR unremarkable except for ET tube. Extubated to 08/04/18. Transfer to the floor. Remains awake but confused Breakthrough Seizures/ Status Epilepticus continue Keppra Seizure precuations at all times Acute hypoxic resp failure s/p extubation monitor closely supplemental o2 as tolerated ESRD on HD per renal DM I with multiple complications continue Insulin therapy. HTN continue meds H/o CVA with chronic left sided weakness and severe dysarthria continue mgt Chronic Physical debility fall precautions at all times Toxic metabolic Encephalopathy, resolved. suspect 2/2 seizures. Resolved. Monitor mental status . Chronic medication noncompliance counseled medication compliance. UTI continue IV antibiotics Disposition Plan: Discussed with Case management. Arrnageing walker and otehr home requirement today for possible d/c home tomorrow Total Time Spent with Patient (Minutes): more than 25 mins spent Subjective Date of service: 08/07/18 Principal diagnosis: acute respiratory failure, AMS, question of angioedema Interval history: Patient seen and examined. Awake and oriented with severe dysathria from prior stroke. Objective - Exam Narrative Exam: Constitutional: Awake. Confused. Well-nourished well-developed. In no distress Head: Normocephalic atraumatic Eyes: Pupils are equal round and reactive to light Nose: No enlarged turbinates, no septal deviation. Mouth: Moist mucous membranes. Neck: Supple no thyromegaly. No bruit. No JVD Heart: Regular rate and rhythm, S1-S2 normal. No rubs murmurs or gallop Lungs: Clear to auscultation bilaterally. no rales or rhonchi Abdomen: Soft, nontender. Bowel sound are present. Extremities: No edema, no cyanosis, no clubbing. Neuro: Slow speech. Confused. Chronic new deficits from stroke. Skin: No rashes or hyperpigmented spots Musculoskeletal system: No joint pain or swelling Hematological: No petechia or subcutanous hemorrhages. Immunological: No multiple septic spots on the skin Lymphatic: No generalized lymphadenopathy Psychiatry: Confused. - Constitutional Vitals: Vital Signs - 12hr 08/07/18 08/07/18 08/07/18 05:42 06:53 09:44 Temperature 98.8 F Pulse Rate 99 H 99 H 99 H Respiratory 20 Rate Blood Pressure 126/82 126/82 126/82 O2 Sat by Pulse 97 Oximetry 08/07/18 08/07/18 08/07/18 12:05 15:08 15:09 Temperature 98.4 F Pulse Rate 98 H 98 H 98 H Respiratory 20 Rate Blood Pressure 137/76 137/76 137/76 O2 Sat by Pulse 99 Oximetry - Labs CBC & Chem 7: 08/07/18 13:02 08/07/18 10:40 Labs: Abnormal lab results 08/06/18 08/06/18 08/07/18 Range/Units 16:29 21:51 10:40 WBC (4.5-11.0) K/mm3 RDW (13.2-15.2) % [place] % (Auto) (0.0-7.3) % [place] # (0.0-0.8) K/mm3 Eos # (0.0-0.4) K/mm3 Baso # (0.0-0.1) K/mm3 Seg Neutrophils # (1.8-7.7) K/mm3 Sodium 135 L (137-145) mmol/L Chloride 93.3 L (98-107) mmol/L Carbon Dioxide 20 L (22-30) mmol/L BUN 42 H (7-17) mg/dL Creatinine 9.0 H (0.7-1.2) mg/dL Glucose 242 H (65-100) mg/dL POC Glucose 132 H 283 H (70-105) Albumin 3.3 L (3.9-5) g/dL 08/07/18 Range/Units 13:02 WBC 13.4 H (4.5-11.0) K/mm3 RDW 16.1 H (13.2-15.2) % [place] % (Auto) 9.6 H (0.0-7.3) % [place] # 1.3 H (0.0-0.8) K/mm3 Eos # 0.5 H (0.0-0.4) K/mm3 Baso # 0.2 H (0.0-0.1) K/mm3 Seg Neutrophils # 8.8 H (1.8-7.7) K/mm3 Sodium (137-145) mmol/L Chloride (98-107) mmol/L Carbon Dioxide (22-30) mmol/L BUN (7-17) mg/dL Creatinine (0.7-1.2) mg/dL Glucose (65-100) mg/dL POC Glucose (70-105) Albumin (3.9-5) g/dL
--- NOTE | 2018-08-07 19:59 | Progress Note ---
Assessment and Plan Imp: 1. Seizures 2. Acute respiratory failure, hypoxia 3. Encephalopathy 4. ESRD Rec: 1. Stable pulm-orosco on RA with clear CXR; will sign off but please call with questions, or if new issues arise Plan of care reviewed w/ patient, she understands/agrees Subjective Date of service: 08/07/18 Principal diagnosis: acute respiratory failure, AMS, question of angioedema Interval history: No events. Awake, on RA, without complaints. Active Medications Albumin Human (Alburx 25% (Albumin)) 12.5 gm IV DESIREE PRN PRN Reason: Hypotension Amlodipine Besylate (Norvasc) 10 mg PO DAILY [facility] Last Admin: 08/07/18 09:44 Dose: 10 mg Documented by: Lipase/Protease/Amylase (Lambert Rowe 10,500 Unit) 1 each FEEDTUBE PRN PRN PRN Reason: For Clogged Feeding Tube Atorvastatin Calcium (Lipitor) 40 mg PO DAILY [facility] Last Admin: 08/07/18 09:43 Dose: 40 mg Documented by: Clonidine HCl (Catapres) 0.1 mg PO Q8HR [facility] Last Admin: 08/07/18 15:09 Dose: 0.1 mg Documented by: Famotidine (Pepcid) 20 mg PO DAILY [facility] Last Admin: 08/07/18 09:42 Dose: 20 mg Documented by: Heparin Sodium (Porcine) (Heparin) 5,000 unit SUB-Q Q8HR [facility] Last Admin: 08/07/18 15:11 Dose: 5,000 unit Documented by: Hydrophilic Ointment (Vaseline Lip Therapy) 1 applic TP Q2HR PRN PRN Reason: Dry Lips Sodium Chloride (Nacl 0.9%) 100 mls @ 999 mls/hr IV DESIREE PRN PRN Reason: Hypotension Insulin Glargine (Lantus) 35 units SUB-Q QHS [facility] Last Admin: 08/07/18 01:16 Dose: 35 units Documented by: Insulin Human Lispro (Humalog) 0 unit SUB-Q ACHS [facility]; Protocol Last Admin: 08/07/18 19:46 Dose: 4 unit Documented by: Levetiracetam (Keppra) 750 mg PO BID [facility] Last Admin: 08/07/18 09:42 Dose: 750 mg Documented by: Lorazepam (Ativan) 1 mg IV Q4H PRN PRN Reason: Agitation Last Admin: 08/04/18 00:58 Dose: 1 mg Documented by: Multi-Ingred Cream/Lotion/Oil/Oint (Artificial Tears Ophth Oint) 1 applic OU Q4HR PRN PRN Reason: Dry Eye(s) Phenol (Chloraseptic) 1 spray MM PRN PRN PRN Reason: Sore Throat Last Admin: 08/06/18 15:40 Dose: 1 spray Documented by: Simple Syrup (Simple Syrup) 15 ml FEEDTUBE PRN PRN PRN Reason: Hypoglycemia Simple Syrup (Simple Syrup) 30 ml FEEDTUBE PRN PRN PRN Reason: Hypoglycemia Sodium Bicarbonate (Sodium Bicarbonate) 650 mg PO BID [facility] Last Admin: 08/07/18 09:42 Dose: 650 mg Documented by: Sodium Bicarbonate (Sodium Bicarbonate) 325 mg FEEDTUBE PRN PRN PRN Reason: For Clogged Feeding Tube Sodium Chloride (Sodium Chloride Flush Syringe 10 Ml) 10 ml IV BID [facility] Last Admin: 08/07/18 15:10 Dose: 10 ml Documented by: Sodium Chloride (Sodium Chloride Flush Syringe 10 Ml) 10 ml IV PRN PRN PRN Reason: LINE FLUSH Objective Vital Signs - 12hr 08/07/18 08/07/18 08/07/18 09:44 10:00 12:05 Temperature 98.4 F Pulse Rate 99 H 98 H Respiratory 20 Rate Blood Pressure 126/82 137/76 O2 Sat by Pulse 96 99 Oximetry 08/07/18 08/07/18 08/07/18 15:08 15:09 18:32 Temperature 97.6 F Pulse Rate 98 H 98 H 105 H Respiratory 20 Rate Blood Pressure 137/76 137/76 138/92 O2 Sat by Pulse 96 Oximetry Constitutional: no acute distress, alert Eyes: non-icteric ENT: oropharynx moist Neck: supple Effort: normal Ascultation: Bilateral: clear Cardiovascular: regular rate and rhythm (no mrg) Gastrointestinal: normoactive bowel sounds Integumentary: normal Extremities: no cyanosis, no edema Neurologic: normal mental status (somewhat slow response to questions), non- focal exam, pupils equal and round, CN II-XII normal Psychiatric: mood appropriate, affect normal CBC and BMP: 08/07/18 13:02 08/07/18 10:40 ABG, PT/INR, D-dimer: ABG POC ABG pH 7.510 (7.35-7.45) H 08/03/18 05:03 POC ABG pCO2 35.8 (35-45) 08/03/18 05:03 POC ABG pO2 149 (80-105) H 08/03/18 05:03 POC ABG HCO3 28.6 08/03/18 05:03 POC ABG Total CO2 30 08/03/18 05:03 POC ABG O2 Sat 99 08/03/18 05:03 Abnormal lab findings: Abnormal Labs 07/31/18 07/31/18 07/31/18 11:14 11:39 11:39 WBC RDW 16.3 H Branch % (Auto) 8.4 H Branch # Eos # Baso # Seg Neutrophils # POC ABG pH POC ABG pCO2 POC ABG pO2 Sodium Chloride 96.6 L Carbon Dioxide BUN 38 H Creatinine 7.5 H Glucose 103 H POC Glucose 157 H Hemoglobin A1c Troponin T Albumin Triglycerides HDL Cholesterol Urine WBC (Auto) 07/31/18 07/31/18 07/31/18 12:29 12:34 12:37 WBC RDW Branch % (Auto) Branch # Eos # Baso # Seg Neutrophils # POC ABG pH POC ABG pCO2 POC ABG pO2 194 H Sodium Chloride Carbon Dioxide BUN Creatinine Glucose POC Glucose Hemoglobin A1c Troponin T 0.070 H Albumin Triglycerides 270 H HDL Cholesterol 31 L Urine WBC (Auto) 114.0 H 08/01/18 08/01/18 08/01/18 03:01 05:15 11:56 WBC RDW Branch % (Auto) Branch # Eos # Baso # Seg Neutrophils # POC ABG pH POC ABG pCO2 27.9 L POC ABG pO2 128 H Sodium Chloride Carbon Dioxide BUN Creatinine Glucose POC Glucose 251 H 249 H Hemoglobin A1c Troponin T Albumin Triglycerides HDL Cholesterol Urine WBC (Auto) 08/01/18 08/01/18 08/02/18 17:36 23:32 04:44 WBC RDW Branch % (Auto) Branch # Eos # Baso # Seg Neutrophils # POC ABG pH 7.485 H POC ABG pCO2 34.6 L POC ABG pO2 Sodium Chloride Carbon Dioxide BUN Creatinine Glucose POC Glucose 205 H 273 H Hemoglobin A1c Troponin T Albumin Triglycerides HDL Cholesterol Urine WBC (Auto) 08/02/18 08/02/18 08/02/18 05:29 12:45 18:16 WBC RDW Branch % (Auto) Branch # Eos # Baso # Seg Neutrophils # POC ABG pH POC ABG pCO2 POC ABG pO2 Sodium Chloride Carbon Dioxide BUN Creatinine Glucose POC Glucose 325 H 375 H 295 H Hemoglobin A1c Troponin T Albumin Triglycerides HDL Cholesterol Urine WBC (Auto) 08/02/18 08/03/18 08/03/18 23:34 05:03 05:21 WBC RDW Branch % (Auto) Branch # Eos # Baso # Seg Neutrophils # POC ABG pH 7.510 H POC ABG pCO2 POC ABG pO2 149 H Sodium Chloride Carbon Dioxide BUN Creatinine Glucose POC Glucose 284 H 240 H Hemoglobin A1c Troponin T Albumin Triglycerides HDL Cholesterol Urine WBC (Auto) 08/03/18 08/03/18 08/03/18 06:04 12:02 16:31 WBC RDW Branch % (Auto) Branch # Eos # Baso # Seg Neutrophils # POC ABG pH POC ABG pCO2 POC ABG pO2 Sodium Chloride Carbon Dioxide BUN Creatinine Glucose POC Glucose 232 H 217 H 128 H Hemoglobin A1c Troponin T Albumin Triglycerides HDL Cholesterol Urine WBC (Auto) 08/03/18 08/04/18 08/04/18 20:47 07:47 11:54 WBC RDW Branch % (Auto) Branch # Eos # Baso # Seg Neutrophils # POC ABG pH POC ABG pCO2 POC ABG pO2 Sodium Chloride Carbon Dioxide BUN Creatinine Glucose POC Glucose 275 H 110 H 234 H Hemoglobin A1c Troponin T Albumin Triglycerides HDL Cholesterol Urine WBC (Auto) 08/04/18 08/04/18 08/05/18 16:58 21:24 08:00 WBC RDW Branch % (Auto) Branch # Eos # Baso # Seg Neutrophils # POC ABG pH POC ABG pCO2 POC ABG pO2 Sodium Chloride Carbon Dioxide BUN Creatinine Glucose POC Glucose 240 H 188 H 264 H Hemoglobin A1c Troponin T Albumin Triglycerides HDL Cholesterol Urine WBC (Auto) 08/05/18 08/05/18 08/05/18 10:57 16:11 21:27 WBC RDW Branch % (Auto) Branch # Eos # Baso # Seg Neutrophils # POC ABG pH POC ABG pCO2 POC ABG pO2 Sodium Chloride Carbon Dioxide BUN Creatinine Glucose POC Glucose 234 H 251 H 247 H Hemoglobin A1c Troponin T Albumin Triglycerides HDL Cholesterol Urine WBC (Auto) 08/06/18 08/06/18 08/06/18 07:27 11:06 16:29 WBC RDW Branch % (Auto) Branch # Eos # Baso # Seg Neutrophils # POC ABG pH POC ABG pCO2 POC ABG pO2 Sodium Chloride Carbon Dioxide BUN Creatinine Glucose POC Glucose 204 H 249 H 132 H Hemoglobin A1c Troponin T Albumin Triglycerides HDL Cholesterol Urine WBC (Auto) 08/06/18 08/07/18 08/07/18 21:51 10:40 13:02 WBC 13.4 H RDW 16.1 H Branch % (Auto) 9.6 H Branch # 1.3 H Eos # 0.5 H Baso # 0.2 H Seg Neutrophils # 8.8 H POC ABG pH POC ABG pCO2 POC ABG pO2 Sodium 135 L Chloride 93.3 L Carbon Dioxide 20 L BUN 42 H Creatinine 9.0 H Glucose 242 H POC Glucose 283 H Hemoglobin A1c Troponin T Albumin 3.3 L Triglycerides HDL Cholesterol Urine WBC (Auto) 08/07/18 13:02 WBC RDW Branch % (Auto) Branch # Eos # Baso # Seg Neutrophils # POC ABG pH POC ABG pCO2 POC ABG pO2 Sodium Chloride Carbon Dioxide BUN Creatinine Glucose POC Glucose Hemoglobin A1c 6.5 H Troponin T Albumin Triglycerides HDL Cholesterol Urine WBC (Auto) Chest x-ray: report reviewed, image reviewed (clear lungs) Allied health notes reviewed: nursing
[2018-08-07] MEDS: ATIVAN IV PRN (21:49)
[2018-08-08] MEDS: HEPARIN SUB-Q SCH ×2 (05:38→14:55)
[2018-08-08] MEDS: CATAPRES PO SCH ×2 (05:41→14:54)
[2018-08-08 05:48] LABS: Basophils # (Auto) 0.1 K/mm3 (0.0-0.1); Basophils % (Auto) 0.9 % (0.0-1.8); Eosinophils # (Auto) 0.5 K/mm3 (0.0-0.4); Eosinophils % (Auto) 6.7 % (0.0-4.3); Hematocrit 35.6 % (30.3-42.9); Hemoglobin 12.4 gm/dl (10.1-14.3); Lymphocytes # (Auto) 2.6 K/mm3 (1.2-5.4); Lymphocytes % (Auto) 33.7 % (13.4-35.0); Mean Corpuscular HGB Conc 35 % (30-34); Mean Corpuscular Volume 90 fl (79-97); Monocytes # (Auto) 0.6 K/mm3 (0.0-0.8); Monocytes % (Auto) 7.5 % (0.0-7.3); Platelet Count 195 K/mm3 (140-440); Red Blood Count 3.96 M/mm3 (3.65-5.03); Red Cell Distribution Width 13.3 % (13.2-15.2)
[2018-08-08 06:12] LABS: Albumin 4.2 g/dL (3.9-5)
--- NOTE | 2018-08-08 08:27 | Progress Note ---
Assessment and Plan - Patient Problems (1) ESRD (end stage renal disease) on dialysis Current Visit: Yes Status: Chronic Plan to address problem: Continue hemodialysis on a Tuesday, and Tuesday schedule. Okay to discharge from renal standpoint after dialysis today (2) Hypertensive chronic kidney disease with stage 5 chronic kidney disease or end stage renal disease Current Visit: Yes Status: Chronic Plan to address problem: Follow-up blood pressure on current medications (3) Encephalopathy Current Visit: No Status: Acute Plan to address problem: Resolve. 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 Been treated with Keppra Subjective Date of service: 08/08/18 Principal diagnosis: acute respiratory failure, AMS, question of angioedema Interval history: Patient seen lying in bed. No C/o. No chest pain/SOB/ Nausea or vomiting Objective - Exam Narrative Exam: Middle-aged -[place] female lying in bed in no acute distress HEENT: NCAT, pink oral mucous membrane Neck: Supple, no venous distention CVS: S1S2 RRR with no murmur, rub or gallop Chest: Clear to auscultation Abdomen: Protuberant, soft, nontender, no organomegaly, bowel sounds are present Extremities: No edema Neuro: Drowsy but awakened, hemiplegia - Vital Signs Vital signs: Vital Signs - 12hr 08/07/18 08/07/18 08/07/18 20:39 21:49 21:51 Temperature Pulse Rate 105 H 92 H Respiratory 18 Rate Blood Pressure 141/88 141/88 O2 Sat by Pulse Oximetry 08/07/18 08/07/18 08/08/18 22:00 23:13 05:41 Temperature 97.9 F 97.9 F Pulse Rate 98 H 92 H Respiratory 18 20 18 Rate Blood Pressure 147/92 125/75 O2 Sat by Pulse 96 100 100 Oximetry - Lab 08/08/18 05:22 08/08/18 05:22 Most recent lab results Calcium 10.0 mg/dL (8.4-10.2) 08/08/18 05:22 Medications & Allergies - Medications Allergies/Adverse Reactions: Allergies ibuprofen Allergy (Verified 06/24/17 17:09) Rash Home Medications: Home Medications Medication Instructions Recorded Confirmed Last Taken Type Amlodipine Besylate 10 mg PO DAILY 08/27/15 08/02/18 08/09/17 History AtorvaSTATin [Lipitor] 40 mg PO DAILY 08/27/15 08/02/18 08/09/17 History Gabapentin 300 mg PO TID 08/27/15 08/02/18 08/09/17 History HumaLOG VIAL 15 unit SQ TID 03/19/17 08/02/18 08/09/17 History oxyCODONE /ACETAMINOPHEN [Percocet 1 tab PO Q6HR PRN #14 tablet 07/28/17 08/02/18 08/09/17 Rx 5/325] levETIRAcetam [Keppra TAB] 500 mg PO BID #60 tablet 07/24/18 08/02/18 Unknown Rx Lisinopril [Zestril] 40 mg PO DAILY 08/02/18 08/02/18 Unknown History Active Medications: Generic Name Dose Route Start Last Admin Trade Name Brigido PRN Reason Stop Dose Admin Albumin Human 12.5 gm 07/31/18 21:53 Alburx 25% (Albumin) IV DESIREE PRN Hypotension Amlodipine Besylate 10 mg 08/01/18 12:00 08/07/18 09:44 Norvasc PO 10 mg DAILY [facility] Administration Lipase/Protease/Amylase 1 each 08/01/18 14:[address] 10,500 Unit FEEDTUBE PRN PRN For Clogged Feeding Tube Atorvastatin Calcium 40 mg 08/01/18 14:30 08/07/18 09:43 Lipitor PO 40 mg DAILY [facility] Administration Clonidine HCl 0.1 mg 08/01/18 14:00 08/08/18 05:41 Catapres PO 0.1 mg Q8HR [facility] Administration Famotidine 20 mg 08/03/18 10:00 08/07/18 09:42 Pepcid PO 20 mg DAILY [facility] Administration Heparin Sodium (Porcine) 5,000 unit 08/01/18 14:00 08/08/18 05:38 Heparin SUB-Q 5,000 unit Q8HR [facility] Administration Hydrophilic Ointment 1 applic 07/31/18 12:00 Vaseline Lip Therapy TP Q2HR PRN Dry Lips Sodium Chloride 100 mls @ 999 mls/hr 07/31/18 21:53 Nacl 0.9% IV DESIREE PRN Hypotension Insulin Glargine 35 units 08/03/18 22:00 08/07/18 21:52 Lantus SUB-Q 35 units QHS [facility] Administration Insulin Human Lispro 0 unit 08/03/18 16:30 08/07/18 21:52 Humalog SUB-Q Not Given ACHS [facility] Protocol Levetiracetam 750 mg 08/06/18 10:00 08/07/18 21:49 Keppra PO 750 mg BID [facility] Administration Lorazepam 1 mg 08/01/18 11:32 08/07/18 21:49 Ativan IV 1 mg Q4H PRN Administration Agitation Multi-Ingred Cream/Lotion/Oil/Oint 1 applic 07/31/18 12:00 Artificial Tears Ophth Oint OU Q4HR PRN Dry Eye(s) Phenol 1 spray 08/03/18 13:36 08/06/18 15:40 Chloraseptic MM 1 spray PRN PRN Administration Sore Throat Simple Syrup 15 ml 08/01/18 14:57 Simple Syrup FEEDTUBE PRN PRN Hypoglycemia Simple Syrup 30 ml 08/01/18 14:57 Simple Syrup FEEDTUBE PRN PRN Hypoglycemia Sodium Bicarbonate 650 mg 08/01/18 15:00 08/07/18 21:50 Sodium Bicarbonate PO 650 mg BID [facility] Administration Sodium Bicarbonate 325 mg 08/01/18 14:57 Sodium Bicarbonate FEEDTUBE PRN PRN For Clogged Feeding Tube Sodium Chloride 10 ml 07/31/18 22:00 08/07/18 21:53 Sodium Chloride Flush Syringe 10 Ml IV 10 ml BID [facility] Administration Sodium Chloride 10 ml 07/31/18 13:28 Sodium Chloride Flush Syringe 10 Ml IV PRN PRN LINE FLUSH
[2018-08-08] MEDS: KEPPRA PO SCH (12:54)
[2018-08-08] MEDS: HumaLOG SUB-Q SCH ×2 (12:54→18:02)
[2018-08-08] MEDS: SODIUM BICARBONATE PO SCH (12:55)
[2018-08-08] MEDS: NORVASC PO SCH (12:55)
[2018-08-08] MEDS: PEPCID PO SCH (12:55)
[2018-08-08] MEDS ORDERED: NACL 0.9 (PRIMING MACHINE ONLY DIALYSIS) MC ONE (15:13)
[2018-08-08 16:24] VITALS: BP 149/90
--- NOTE | 2018-08-09 15:35 | Discharge Summary ---
Providers - Providers Date of Admission: 07/31/18 13:54 Date of discharge: 08/08/18 Attending physician: SHANTELLE HASSAN 07/31/18 13:34 Consult to Physician [CONS] Routine Comment: Consulting Provider: XU SUAREZ Physician Instructions: Reason For Exam: ESRD 07/31/18 13:40 Consult to Physician [CONS] Routine Comment: Kelsy @ office notified @ 13:52- LXM Consulting Provider: MICHAEL BUCHANAN Physician Instructions: Reason For Exam: Respiratory failure 08/01/18 12:04 Consult to Dietitian/Nutrition [CONS] Routine Physician Instructions: Reason For Exam: Reason for Consult: Write/Manage Tube Feeding 08/02/18 11:05 Midline [Consult to PICC Line RN] [CONS] Urgent Reason For Exam: IV access Type Line:: Midline 08/03/18 09:24 Consult to Physician [CONS] Routine Comment: Consulting Provider: JOSE RUIZ Physician Instructions: Reason For Exam: second opinon, seizure 08/03/18 11:31 Physical Therapy Evaluation and Treat [CONS] Routine Comment: Reason For Exam: Debility Primary care physician: JORADN MENARD Hospitalization Reason for admission: Angioedema, acute respiratory failure with hypoxia, UTI, seizures Condition: Stable Pertinent studies: MRI BRAIN: Negative for acute findings Chest x-ray: Negative Procedures: Endotracheal intubation Hospital course: Final discharge diagnoses: -Angioedema, exact cause unknown -History of seizure disorder with breakthrough Seizures versus Status Epilepticus -Acute hypoxic resp failure s/p extubation -Acute toxic/metabolic encephalopathy, likely 2/2 seizures. -UTI -ESRD on HD -DM I with multiple complications -HTN -H/o CVA with chronic left sided weakness and severe dysarthria -Chronic Physical debility -H/O medication noncompliance Hospital course: On admission, patient was emergently intubated and placed on mechanical ventilator. She was also placed on steroids and IV antibiotic for urinary tract infection in addition to anti-seizure agent. Subsequently, her respiratory status improved and she was extubated successfully. Thereafter, she was long sferred to the acute medicine floor for continued management. For her other comorbidities, she was continued on her home medications except the lisinopril. In addition, she was continued on her regularly scheduled hemodialysis. She was monitored on the floor without any adverse events and was later deemed stable for discharge with clinic follow-up. On discharge, the lisinopril was continued. However, I called the daughter today, being 08/09/2018, over the phone ([phone]) and instructed her to stop giving the mother the lisinopril, which could predispose her to angioedema, even though she had been taking it for a long time. Disposition: DC-01 TO HOME OR SELFCARE Time spent for discharge: 35 minutes Core Measure Documentation - Palliative Care Palliative Care/ Comfort Measures: Not Applicable - Core Measures Any of the following diagnoses?: history only Exam - Constitutional Vitals: Temp Pulse Resp BP Pulse Ox 97.8 F 111 H 18 149/90 93 08/08/18 16:19 08/08/18 16:19 08/08/18 16:19 08/08/18 16:19 08/08/18 16:19 General appearance: Present: no acute distress, well-nourished - EENT Eyes: Present: PERRL, EOM intact ENT: hearing intact, clear oral mucosa - Neck Neck: Present: supple, normal ROM - Respiratory Respiratory effort: normal Respiratory: bilateral: CTA - Cardiovascular Rhythm: regular Heart Sounds: Present: S1 & S2. Absent: rub, click - Extremities Extremities: No edema Peripheral Pulses: within normal limits - Abdominal General gastrointestinal: Present: soft, non-tender, non-distended, normal bowel sounds - Integumentary Integumentary: Present: clear, warm, dry - Musculoskeletal Musculoskeletal: left sided weakness - Neurologic Neurologic: focal deficits Plan Follow up with: JORDAN MENARD MD [Primary Care Provider] - 3-5 Days Prescriptions: cloNIDine [Catapres] 0.1 mg PO Q8HR #90 tablet levETIRAcetam [Keppra TAB] 750 mg PO BID #90 tablet
== END 2018-08-08 19:04 | disposition home or self-care (01) | DRG 208 ==
LOC: ED 11:07 → CC1 13:54 → 3A 08-04 20:24
PROVIDERS: ADMIT Internal Medicine; ATTEND Internal Medicine
PROC: 5A1945Z Respiratory Ventilation, 24-96 Consecutive Hours (ICD-10-PCS; principal; 2018-07-31)
PROC: 06HY33Z Insertion of Infusion Device into Lower Vein, Percutaneous Approach (ICD-10-PCS; 2018-07-31)
PROC: 0BH18EZ Insertion of Endotracheal Airway into Trachea, Via Natural or Artificial Opening Endoscopic (ICD-10-PCS; 2018-07-31)
PROC: 4A033R1 Measurement of Arterial Saturation, Peripheral, Percutaneous Approach (ICD-10-PCS; 2018-08-01)
PROC: 5A1D70Z Performance of Urinary Filtration, Intermittent, Less than 6 Hours Per Day (ICD-10-PCS; 2018-08-01)
PROC: 3E0234Z Introduction of Serum, Toxoid and Vaccine into Muscle, Percutaneous Approach (ICD-10-PCS; 2018-08-01)
PROC: 05HY33Z Insertion of Infusion Device into Upper Vein, Percutaneous Approach (ICD-10-PCS; 2018-08-02)
PROC: 5A1D70Z Performance of Urinary Filtration, Intermittent, Less than 6 Hours Per Day (ICD-10-PCS; 2018-08-03)
PROC: 5A1D70Z Performance of Urinary Filtration, Intermittent, Less than 6 Hours Per Day (ICD-10-PCS; 2018-08-05)
PROC: 5A1D70Z Performance of Urinary Filtration, Intermittent, Less than 6 Hours Per Day (ICD-10-PCS; 2018-08-08)
DX: J96.01 Acute respiratory failure with hypoxia (principal); N18.6 End stage renal disease; G92 Toxic encephalopathy; I12.0 Hypertensive chronic kidney disease with stage 5 chronic kidney disease or end stage renal disease; I69.354 Hemiplegia and hemiparesis following cerebral infarction affecting left non-dominant side; N30.00 Acute cystitis without hematuria; G40.901 Epilepsy, unspecified, not intractable, with status epilepticus; T78.3XXA Angioneurotic edema, initial encounter; E11.42 Type 2 diabetes mellitus with diabetic polyneuropathy; K21.9 Gastro-esophageal reflux disease without esophagitis; F17.210 Nicotine dependence, cigarettes, uncomplicated; E11.65 Type 2 diabetes mellitus with hyperglycemia; G89.29 Other chronic pain; E66.01 Morbid (severe) obesity due to excess calories; E11.22 Type 2 diabetes mellitus with diabetic chronic kidney disease; Z99.2 Dependence on renal dialysis; I69.322 Dysarthria following cerebral infarction; Z83.3 Family history of diabetes mellitus; Z82.49 Family history of ischemic heart disease and other diseases of the circulatory system; Z88.6 Allergy status to analgesic agent; Z79.899 Other long term (current) drug therapy; Z90.49 Acquired absence of other specified parts of digestive tract; Z68.28 Body mass index [BMI] 28.0-28.9, adult; Z79.4 Long term (current) use of insulin; Z91.14 Patient's other noncompliance with medication regimen; Z23 Encounter for immunization
CPT/HCPCS: 36415; 36600; 70450; 70551; 71045; 74018; 80053; 80061; 80076; 80307; 81001; 81025; 82140; 82803; 82962; 83036; 84484; 85025; 85730; 87070; 87205; 90471; 90686; 90732; 93005; 93010; 94002; 94003; 94760; 95819; 96374; 96375; G0378; A9270-GY; G0008; G0009; J0696; J1200; J1644; J1815; J1953; J2060; J2704; J2920; J2930; J3010; J7030

== ENCOUNTER 2018-10-31 11:38 | Inpatient (IN) | payer MEDICARE ==
--- NOTE | 2018-10-31 11:46 | Emergency Department Report ---
ED Neuro Deficit HPI - General Chief Complaint: Neuro Symptoms/Deficit Stated Complaint: POSS CVA Time Seen by Provider: 10/31/18 11:39 Source: EMS Mode of arrival: Stretcher Limitations: Altered Mental Status - History of Present Illness Initial Comments: Patient is 48 years old female with history of end-stage renal disease on hemodialysis, left sided stroke with left upper and lower extremity residual weakness. Patient brought to the emergency room via EMS from dialysis center as a possible code stroke. Dialysis Center stated that the patient brought to them with altered mental status by her family today for dialysis. Family stated that she went to bed fine last night and found to have a blood sugar of 60 to give initially with tablets and her blood sugar went to 170 but no improvement in altered mental status. According to the dialysis's the patient is usually talkative but today she did not speak to them. Patient has a mild left facial paralysis and unsure if there is any increase in her left upper and lower extremity weakness. Patient immediately moved to the CT scan and neurologist consulted. Dr. Delmy Victor examined the patient through video conference. For more information please refer to Dr. Victor consultation notes. -: This morning Location: speech, right face Presenting Symptoms: Present: Unable to Speak Clearly, Altered Mental Status History of same: Yes Context: sudden onset - Related Data Home Medications: Home Medications Medication Instructions Recorded Confirmed Last Taken Amlodipine Besylate 10 mg PO DAILY 08/27/15 08/02/18 08/09/17 AtorvaSTATin [Lipitor] 40 mg PO DAILY 08/27/15 08/02/18 08/09/17 Gabapentin 300 mg PO TID 08/27/15 08/02/18 08/09/17 HumaLOG VIAL 15 unit SQ TID 03/19/17 08/02/18 08/09/17 Previous Rx's Medication Instructions Recorded Last Taken Type oxyCODONE /ACETAMINOPHEN [Percocet 1 tab PO Q6HR PRN #14 tablet 07/28/17 08/09/17 Rx 5/325 mg] cloNIDine [Catapres] 0.1 mg PO Q8HR #90 tablet 08/08/18 Unknown Rx levETIRAcetam [Keppra TAB] 750 mg PO BID #90 tablet 08/08/18 Unknown Rx Allergies/Adverse Reactions: Allergies Allergy/AdvReac Type Severity Reaction Status Date / Time ibuprofen Allergy Rash Verified 06/24/17 17:09 ED Review of Systems ROS: Stated complaint: POSS CVA Other details as noted in HPI Comment: Unobtainable due to pts medical conditions ED Past Medical Hx - Past Medical History Hx Hypertension: Yes (X 10 YRS) 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) Hx Congestive Heart Failure: No Hx Diabetes: Yes (NOT WELL CONTROLLED) Hx Deep Vein Thrombosis: No Hx GERD: (NO MEDS) Hx Renal Disease: Yes (chronic renal insuf) Hx Seizures: Yes (LAST SEIZURE 8 MONTHS AGO- NO MEDS ( LOW BLD SUGAR)) Hx Asthma: No Hx COPD: No Hx HIV: No - Surgical History Hx Pacemaker: No Hx Internal Defibrillator: No Hx Cholecystectomy: Yes Additional Surgical History: Right chest permcath - Social History Smoking Status: Unknown if ever smoked - Medications Home Medications: Home Medications Medication Instructions Recorded Confirmed Last Taken Type Amlodipine Besylate 10 mg PO DAILY 08/27/15 08/02/18 08/09/17 History AtorvaSTATin [Lipitor] 40 mg PO DAILY 08/27/15 08/02/18 08/09/17 History Gabapentin 300 mg PO TID 08/27/15 08/02/18 08/09/17 History HumaLOG VIAL 15 unit SQ TID 03/19/17 08/02/18 08/09/17 History oxyCODONE /ACETAMINOPHEN [Percocet 1 tab PO Q6HR PRN #14 tablet 07/28/1708/09/17 Rx 5/325 mg] cloNIDine [Catapres] 0.1 mg PO Q8HR #90 tablet 08/08/18 Unknown Rx levETIRAcetam [Keppra TAB] 750 mg PO BID #90 tablet 08/08/18 Unknown Rx ED Neuro Physical Exam - General Limitations: Altered Mental Status General appearance: obtunded Suspected Stroke: Yes - Head Head exam: Present: atraumatic, normocephalic, normal inspection - Eye Eye exam: Present: normal appearance, PERRL - ENT ENT exam: Present: normal exam, normal orophraynx, mucous membranes moist - Neck Neck exam: Present: normal inspection, full ROM. Absent: tenderness, meningismus, lymphadenopathy, thyromegaly - Respiratory Respiratory exam: Present: normal lung sounds bilaterally - Cardiovascular Cardiovascular Exam: Present: regular rate, normal rhythm, normal heart sounds - GI/Abdominal GI/Abdominal exam: Present: soft, normal bowel sounds. Absent: distended, tenderness, guarding, rebound, rigid - Back Exam Back exam: Present: normal inspection, full ROM. Absent: CVA tenderness (R), CVA tenderness (L) - Neurological Exam Neurological exam: Present: altered - NIHSS Assessment Interval: Baseline 1a. Level of Consciousness: arousable/minor stimuli 1b. LOC Questions: answers no questions correctly 1c. LOC Commands: performs 1 task correctly 2. Best Gaze: normal 3. Visual: no visual loss 4. Facial Palsy: minor paralysis 5b. Motor Arm Right: no drift 5a. Motor Arm Left: drift 6a. Motor Leg Left: drift 6b. Motor Leg Right: drift 7. Limb Ataxia: absent 8. Sensory: no response/quadraplegic 9. Best Language: mute/global aphasia 10. Dysarthria: mute/anarrthric 11. Extinction/Inattention: no abnormality Total Score: 15 Stroke Severity: Moderate Stroke - Skin Skin exam: Present: warm, intact, normal color ED Course Vital Signs 10/31/18 12:11 Temperature 96.8 F L Pulse Rate 89 Respiratory 8 L Rate Blood Pressure 139/84 O2 Sat by Pulse 99 Oximetry - Lab Data Result diagrams: 10/31/18 11:52 10/31/18 11:52 Lab Results 10/31/18 10/31/18 10/31/18 Range/Units 11:52 11:52 11:52 WBC 12.5 H (4.5-11.0) K/mm3 RBC 4.83 (3.65-5.03) M/mm3 Hgb 13.6 (10.1-14.3) gm/dl Hct 41.9 (30.3-42.9) % MCV 87 (79-97) fl MCH 28 (28-32) pg MCHC 32 (30-34) % RDW 16.8 H (13.2-15.2) % Plt Count 160 (140-440) K/mm3 Lymph % (Auto) 16.7 (13.4-35.0) % Mcduffie % (Auto) 6.2 (0.0-7.3) % Eos % (Auto) 1.5 (0.0-4.3) % Baso % (Auto) 0.6 (0.0-1.8) % Lymph # 2.1 (1.2-5.4) K/mm3 Mcduffie # 0.8 (0.0-0.8) K/mm3 Eos # 0.2 (0.0-0.4) K/mm3 Baso # 0.1 (0.0-0.1) K/mm3 Seg Neutrophils % 75.0 H (40.0-70.0) % Seg Neutrophils # 9.4 H (1.8-7.7) K/mm3 PT 12.8 (12.2-14.9) Sec. INR 0.91 (0.87-1.13) APTT 34.9 (24.2-36.6) Sec. Thrombin Time 17.9 (15.1-19.6) Sec. Sodium 137 (137-145) mmol/L Potassium 5.0 (3.6-5.0) mmol/L Chloride 93.1 L (98-107) mmol/L Carbon Dioxide 25 (22-30) mmol/L Anion Gap 24 mmol/L BUN 57 H (7-17) mg/dL Creatinine 10.0 H (0.7-1.2) mg/dL Estimated GFR 5 ml/min BUN/Creatinine Ratio 6 % Glucose 181 H (65-100) mg/dL POC Glucose (70-105) Calcium 9.7 (8.4-10.2) mg/dL Total Creatine Kinase 113 (30-135) units/L CK-MB (CK-2) 2.8 (0.0-4.0) ng/mL CK-MB (CK-2) Rel Index 2.4 (0-4) Troponin T 0.029 (0.00-0.029) ng/mL 10/31/18 Range/Units 12:01 WBC (4.5-11.0) K/mm3 RBC (3.65-5.03) M/mm3 Hgb (10.1-14.3) gm/dl Hct (30.3-42.9) % MCV (79-97) fl MCH (28-32) pg MCHC (30-34) % RDW (13.2-15.2) % Plt Count (140-440) K/mm3 Lymph % (Auto) (13.4-35.0) % Mcduffie % (Auto) (0.0-7.3) % Eos % (Auto) (0.0-4.3) % Baso % (Auto) (0.0-1.8) % Lymph # (1.2-5.4) K/mm3 Mcduffie # (0.0-0.8) K/mm3 Eos # (0.0-0.4) K/mm3 Baso # (0.0-0.1) K/mm3 Seg Neutrophils % (40.0-70.0) % Seg Neutrophils # (1.8-7.7) K/mm3 PT (12.2-14.9) Sec. INR (0.87-1.13) APTT (24.2-36.6) Sec. Thrombin Time (15.1-19.6) Sec. Sodium (137-145) mmol/L Potassium (3.6-5.0) mmol/L Chloride (98-107) mmol/L Carbon Dioxide (22-30) mmol/L Anion Gap mmol/L BUN (7-17) mg/dL Creatinine (0.7-1.2) mg/dL Estimated GFR ml/min BUN/Creatinine Ratio % Glucose (65-100) mg/dL POC Glucose 160 H (70-105) Calcium (8.4-10.2) mg/dL Total Creatine Kinase (30-135) units/L CK-MB (CK-2) (0.0-4.0) ng/mL CK-MB (CK-2) Rel Index (0-4) Troponin T (0.00-0.029) ng/mL - EKG Data -: EKG Interpreted by Pa EKG shows normal: sinus rhythm Rate: normal Interpretation: no acute changes - Radiology Data Radiology results: report reviewed CT brain is negative for acute finding. - Medical Decision Making Patient is 48 years old female with history of end-stage renal disease on hemodialysis, left sided stroke with left upper and lower extremity residual weakness. Patient brought to the emergency room via EMS from dialysis center as a possible code stroke. Dialysis Center stated that the patient brought to them with altered mental status by her family today for dialysis. Family stated that she went to bed fine last night and found to have a blood sugar of 60 to give initially with tablets and her blood sugar went to 170 but no improvement in altered mental status. According to the dialysis's the patient is usually talkative but today she did not speak to them. Patient has a mild left facial paralysis and unsure if there is any increase in her left upper and lower extremity weakness. Patient immediately moved to the CT scan and neurologist consulted. Dr. Delmy Victor examined the patient through video conference. For more information please refer to Dr. Victor consultation notes. CT read is negative for acute finding. Dr. Victor stated that patient is not a TPA candidate but recommend patient to be admitted for stroke workup including MRI and MRA of the brain and neck. I discussed the patient with Dr Poon, who agreed to admit the patient for further management. Critical Care Time: Yes Critical care attestation.: If time is entered above; I have spent that time in minutes in the direct care of this critically ill patient, excluding procedure time. ED Disposition Clinical Impression: ESRD (end stage renal disease) on dialysis, Cerebrovascular accident Disposition: OP ADMIT IP TO THIS HOSP Is pt being admited?: Yes Condition: Stable
--- NOTE | 2018-10-31 11:59 | Cat Scan Report ---
CT HEAD WITHOUT CONTRAST: HISTORY: Stroke symptoms. TECHNIQUE: Sequential 2.5mm CT images. COMPARISON: 07/31/18. FINDINGS: Cerebral Parenchyma: Minimal nonspecific chronic white matter changes are stable. Chronic lacunar infarcts are unchanged in the left basal ganglia and right subinsular region. The remaining brain parenchyma is within normal limits. Cerebellum: Within normal limits. Brainstem: Chronic lacunar infarct in the right alfred. Ventricles: Normal. Sella: Normal. Extra-axial spaces: Normal. Basal Cisterns: Normal. Intracranial Hemorrhage: None. Midline Shift: None. Calvarium: Normal. Sinuses: Normal. Mastoid Air Cells: Normal. Visualized Orbits: Normal. IMPRESSION: No acute intracranial process. Mild chronic white matter changes and chronic lacunar infarcts as described. These findings were discussed with Dr. Joseph in the emergency department at 1153 hrs.
[2018-10-31 12:03] LABS: Basophils # (Auto) 0.1 K/mm3 (0.0-0.1); Basophils % (Auto) 0.6 % (0.0-1.8); Eosinophils # (Auto) 0.2 K/mm3 (0.0-0.4); Eosinophils % (Auto) 1.5 % (0.0-4.3); Hematocrit 41.9 % (30.3-42.9); Hemoglobin 13.6 gm/dl (10.1-14.3); Lymphocytes # (Auto) 2.1 K/mm3 (1.2-5.4); Lymphocytes % (Auto) 16.7 % (13.4-35.0); Mean Corpuscular HGB Conc 32 % (30-34); Mean Corpuscular Volume 87 fl (79-97); Monocytes # (Auto) 0.8 K/mm3 (0.0-0.8); Monocytes % (Auto) 6.2 % (0.0-7.3); Platelet Count 160 K/mm3 (140-440); Red Blood Count 4.83 M/mm3 (3.65-5.03); Red Cell Distribution Width 16.8 % (13.2-15.2)
[2018-10-31 12:20] LABS: Creatine Kinase MB 2.8 ng/mL (0.0-4.0); INR 0.91 (0.87-1.13)
[2018-10-31 12:21] LABS: Partial Thromboplastin Time 34.9 Sec. (24.2-36.6); Thrombin Time 17.9 Sec. (15.1-19.6)
[2018-10-31 12:22] LABS: Calcium 9.7 mg/dL (8.4-10.2)
--- NOTE | 2018-10-31 13:02 | History and Physical Report ---
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 Pt is confused and unable to provide history. Pt history taken from family who is at bedside during secondary examination and interview. As per family, the patient was in her usual state of health at bedtime around 2100hrs. Upon waking this morning around 0830hrs the patient was noted by family members to be confused with decreased verbalization. Pt glucose was taken by family and was found to be in the 60's. Pt was treated with glucose with improvement in serum glucose level to 170. Pt was taken to her routine dialysis session and was unable to undergo dialysis due to confusion and lethargy. EMS notified, and upon arrival the patient was found to be confused, with new neurologic deficit. A code stroke was called and the patient was transported to [facility]. Pt seen and evaluated in ED and found to have Encephalopath y, as well as symptoms consistent with CVA. Pt initiated on CVA protocol and admitted to telemetry. Pt outside therapeutic window for TPA at time of my evaluation. Neurology consulted in ED. Pt is confused and lethargic on exam but patient has positive gag reflex and in able to protect her airway. No reports to fever, chills, CP, Palpitations, NVD, Trauma, Productive cough, skin rash, or recent ill contacts. Nephrology consulted in ED. Patient care plan discussed with family. Pt family acknowledge understanding care plan and agree with plan. 35 minutes extra time dedicated to patient family counseling. Past History Past Medical History: diabetes, ESRD, hypertension, seizures, stroke Past Surgical History: cholecystectomy, Other (dialysis access) Social history: smoking Family history: diabetes, hypertension Medications and Allergies Allergies Allergy/AdvReac Type Severity Reaction Status Date / Time ibuprofen Allergy Rash Verified 06/24/17 17:09 Home Medications Medication Instructions Recorded Confirmed Last Taken Type Amlodipine Besylate 10 mg PO DAILY 08/27/15 08/02/18 08/09/17 History AtorvaSTATin [Lipitor] 40 mg PO DAILY 08/27/15 08/02/18 08/09/17 History Gabapentin 300 mg PO TID 08/27/15 08/02/18 08/09/17 History cloNIDine [Catapres] 0.1 mg PO Q8HR #90 tablet 08/08/18 Unknown Rx Ferric Citrate (Nf) [Auryxia (Nf)] 210 mg PO TID 10/31/18 10/31/18 Unknown History Insulin Aspart [NovoLOG Flexpen] 15 - 20 units SUB-Q DAILY@0900 10/31/18 10/31/18 Unknown History Insulin Aspart [NovoLOG Flexpen] 15 - 20 units SUB-Q DAILY@1530 10/31/18 10/31/18 Unknown History Insulin Glargine,Hum.rec.anlog 15 - 20 units SUB-Q DAILY@2100 PRN 10/31/18 10/31/18 Unknown History [Lantus Solostar] levETIRAcetam [Keppra TAB] 750 mg PO BID 10/31/18 10/31/18 Unknown History Review of Systems ROS unobtainable: due to mental status Exam - Constitutional Vitals: Temp Pulse Resp BP Pulse Ox 97.5 F L 83 14 151/82 97 10/31/18 12:54 10/31/18 12:54 10/31/18 12:57 10/31/18 12:54 10/31/18 12:57 General appearance: Present: mild distress - EENT Eyes: Present: PERRL, miosis ENT: hearing intact, clear oral mucosa - Neck Neck: Present: supple, normal ROM - Respiratory Respiratory: bilateral: CTA - Cardiovascular Heart Sounds: Present: S1 & S2. Absent: rub, click - Extremities Extremities: pulses symmetrical, No edema Peripheral Pulses: within normal limits - Abdominal General gastrointestinal: Present: soft, non-tender, non-distended, normal bowel sounds Female genitourinary: Present: normal - Integumentary Integumentary: Present: clear, warm, dry - Musculoskeletal Musculoskeletal: left sided weakness - Psychiatric Psychiatric: no appropriate mood/affect, no intact judgment & insight, no memory intact - Neurologic Neurologic: CNII-XII intact, focal deficits, no moves all extremities, no gait normal Results - Labs CBC & Chem 7: 10/31/18 11:52 10/31/18 11:52 Labs: Abnormal lab results 10/31/18 10/31/18 10/31/18 Range/Units 11:52 11:52 12:01 WBC 12.5 H (4.5-11.0) K/mm3 RDW 16.8 H (13.2-15.2) % Seg Neutrophils % 75.0 H (40.0-70.0) % Seg Neutrophils # 9.4 H (1.8-7.7) K/mm3 Chloride 93.1 L (98-107) mmol/L BUN 57 H (7-17) mg/dL Creatinine 10.0 H (0.7-1.2) mg/dL Glucose 181 H (65-100) mg/dL POC Glucose 160 H (70-105) Assessment and Plan - Patient Problems (1) CVA (cerebral vascular accident) Current Visit: Yes Status: Acute Qualifiers: Laterality of affected vessel: unspecified Plan to address problem: Stroke Protocol: CT Brain without contrast, MRI Brain, MRA Brain, Echo, Carotid Doppler, PT/OT/Speech Therapy, Antiplatelet therapy, lipid panel, statin therapy, seizure precautions, aspiration precautions, Neurology consulted in ED. (2) SIRS (systemic inflammatory response syndrome) Current Visit: Yes Status: Acute Plan to address problem: Empiric antibiotic therapy, CBC, CMP, supportive care, chest x ray, urinalysis. (3) Encephalopathy Current Visit: Yes Status: Acute Plan to address problem: CT Head, neuro checks, seizure precautions, (4) ESRD (end stage renal disease) on dialysis Current Visit: No Status: Chronic Plan to address problem: Nephrology consulted in ED, dialysis as per renal team, strict I/O, daily weight, monitor uop q shift, avoid nephrotoxic agents. (5) Diabetes Current Visit: Yes Status: Acute Plan to address problem: ADA diet, insulin, accu check, hypoglycemia protocol, (6) Seizure disorder Current Visit: Yes Status: Acute Plan to address problem: Keppra level, continue Keppra therapy, neurology consulted. (7) Nicotine dependence Current Visit: Yes Status: Acute Qualifiers: Nicotine product type: cigarettes Plan to address problem: smoking cessation counseling, supportive care. (8) DVT prophylaxis Current Visit: Yes Status: Acute Plan to address problem: SCD to BLE while in bed, Prophylactic heparin
[2018-10-31] MEDS ORDERED: PERCOCET 5/325 PO PRN (13:22)
--- NOTE | 2018-10-31 13:47 | XRay Report ---
AP CHEST :10/31/18 13:22 CLINICAL: Cough. COMPARISON:07/31/18 FINDINGS: Normal heart and pulmonary vasculature. The lungs are normally expanded and clear. The bones and soft tissues are normal.No tubes or lines. IMPRESSION: Normal chest.
[2018-10-31] MEDS ORDERED: INSULIN LISPRO SQ SCH (14:00)
[2018-10-31] MEDS ORDERED: SODIUM CHLORIDE FLUSH SYRINGE 10 ML IV PRN (14:24)
[2018-10-31] MEDS ORDERED: ZOFRAN IV PRN (14:24)
[2018-10-31] MEDS ORDERED: PHENERGAN PR PRN (14:24)
[2018-10-31] MEDS ORDERED: MILK OF MAGNESIA PO PRN (14:24)
[2018-10-31] MEDS ORDERED: REGLAN PO PRN (14:24)
[2018-10-31] MEDS ORDERED: TYLENOL PO PRN (14:24)
[2018-10-31] MEDS ORDERED: DULCOLAX PR PRN (14:24)
[2018-10-31] MEDS: NEURONTIN PO SCH ×2 (15:06→22:39)
[2018-10-31] MEDS: CATAPRES PO SCH ×2 (15:06→22:40)
[2018-10-31] MEDS ORDERED: ROCEPHIN/NS 1 GM/50 ML 1 GM/50 ML BAG IV ONE (15:28)
[2018-10-31] MEDS: ROCEPHIN/NS 1 GM/50 ML 1 GM/50 ML BAG IV SCH (15:41)
[2018-10-31] MEDS ORDERED: ATIVAN IV ONE (17:03)
[2018-10-31] MEDS ORDERED: ATIVAN ONE (17:03)
[2018-10-31] MEDS: HumaLOG SUB-Q SCH (17:51)
--- NOTE | 2018-10-31 18:32 | Consultation ---
History of Present Illness Chief complaint: confused History of present illness: This is a 48 YO F who was found by her family to be confused at home. Not much isknown about the details of her confusion. She was brought to the ED for evaluation. She was sedated with Ativan for MRI just before I saw her so she did not answer questions. Past History Past Medical History: diabetes, ESRD, hypertension, seizures, stroke Past Surgical History: cholecystectomy, Other (dialysis access) Social history: smoking Family history: diabetes, hypertension Medications and Allergies Allergies Allergy/AdvReac Type Severity Reaction Status Date / Time ibuprofen Allergy Rash Verified 06/24/17 17:09 Home Medications Medication Instructions Recorded Confirmed Last Taken Type Amlodipine Besylate 10 mg PO DAILY 08/27/15 10/31/18 08/09/17 History AtorvaSTATin [Lipitor] 40 mg PO DAILY 08/27/15 10/31/18 08/09/17 History Gabapentin 600 mg PO TID 08/27/15 10/31/18 08/09/17 History cloNIDine [Catapres] 0.1 mg PO Q8HR #90 tablet 08/08/18 10/31/18 Unknown Rx Ferric Citrate (Nf) [Auryxia (Nf)] 210 mg PO TID 10/31/18 10/31/18 Unknown History Insulin Aspart [NovoLOG Flexpen] 15 - 20 units SUB-Q DAILY@0900 10/31/1810/31 Unknown History Insulin Aspart [NovoLOG Flexpen] 15 - 20 units SUB-Q DAILY@1530 10/31/1810/31 Unknown History Insulin Glargine,Hum.rec.anlog 15 - 20 units SUB-Q DAILY@2100 PRN 10/31/18 Unknown History [Lantus Solostar] levETIRAcetam [Keppra TAB] 750 mg PO BID 10/31/18 10/31/18 Unknown History Active Meds: Active Medications Acetaminophen (Tylenol) 650 mg PO Q4H PRN PRN Reason: Pain, Mild (1-3) Amlodipine Besylate (Norvasc) 10 mg PO DAILY [facility] Aspirin (Aspirin) 325 mg PO QDAY [facility] Atorvastatin Calcium (Lipitor) 40 mg PO DAILY [facility] Bisacodyl (Dulcolax) 10 mg AK QDAY PRN PRN Reason: Constipation Clonidine HCl (Catapres) 0.1 mg PO Q8HR [facility] Last Admin: 10/31/18 15:06 Dose: Not Given Documented by: Gabapentin (Neurontin) 300 mg PO TID [facility] Last Admin: 10/31/18 15:06 Dose: Not Given Documented by: Heparin Sodium (Porcine) (Heparin) 5,000 unit SUB-Q Q12HR [facility] Ceftriaxone Sodium (Rocephin/Ns 1 Gm/50 Ml) 1 gm in 50 mls @ 100 mls/hr IV Q24H [facility]; Protocol Last Admin: 10/31/18 15:41 Dose: 100 mls/hr Documented by: Insulin Human Lispro (Humalog) 15 unit SUB-Q [facility] Last Admin: 10/31/18 17:51 Dose: Not Given Documented by: Levetiracetam (Keppra) 750 mg PO BID [facility] Magnesium Hydroxide (Milk Of Magnesia) 30 ml PO Q4H PRN PRN Reason: Constipation Metoclopramide HCl (Reglan) 10 mg PO Q6H PRN PRN Reason: Nausea And Vomiting Ondansetron HCl (Zofran) 4 mg IV Q8H PRN PRN Reason: Nausea And Vomiting Oxycodone/Acetaminophen (Percocet 5/325) 1 tab PO Q6H PRN PRN Reason: Pain, Moderate (4-6) Promethazine HCl (Phenergan) 25 mg AK Q6H PRN PRN Reason: Nausea And Vomiting Sodium Chloride (Sodium Chloride Flush Syringe 10 Ml) 10 ml IV PRN PRN PRN Reason: LINE FLUSH Review of Systems ROS unobtainable: due to mental status Physical Examination - Vital Signs Vital Signs: Vital Signs Temp Pulse Resp BP Pulse Ox 96.8 F L 89 8 L 139/84 99 10/31/18 12:11 10/31/18 12:11 10/31/18 12:11 10/31/18 12:11 10/31/18 12:11 - Constitutional General appearance: comfortable - EENT EENT: Present: PERRL, mucous membranes moist - Respiratory Respiratory: Present: lungs clear - Cardiovascular Cardiovascular: Present: regular rate Extremities: Present: no peripheral edema bilatateraly - Gastrointestinal Gastrointestinal: Present: normoactive bowel sounds - Neurologic Cranial nerve examination: PERRL, EOMI, face symmetric Speech examination: other (sedated) Detailed motor examination: other (pt not cooperative with strength testing) Reflexes: 1+: ankle, bicep, knee, tricep Results - Laboratory Findings CBC and BMP: 10/31/18 11:52 10/31/18 11:52 Abnormal Lab Findings: Abnormal Labs 10/31/18 10/31/18 10/31/18 11:52 11:52 12:01 WBC 12.5 H RDW 16.8 H Seg Neutrophils % 75.0 H Seg Neutrophils # 9.4 H Chloride 93.1 L BUN 57 H Creatinine 10.0 H Glucose 181 H POC Glucose 160 H - Diagnostic Findings Additional findings: MRI Brain personally reviewed, report pending. No obvious ischemia noted Assessment and Plan This is a 48 YO F with acute encephalopathy, etiology unclear REcommend: Follow up on MRI Brain, full stroke work up if there is acute ischemia EEG ammonia, TSH, UA, B12, UDS if not already done, CXR, pt with some leukocytosis avoid sedating medications Continue Keppra, can check level if compliance is an issue Continue care for all medical issues as you are doing
--- NOTE | 2018-10-31 19:03 | Magnetic Resonance Report ---
PROCEDURE: MR BRAIN WO CON TECHNIQUE: Magnetic resonance imaging of the brain was performed without contrast material. HISTORY: stroke COMPARISONS: None . FINDINGS: There is no evidence of intracranial hemorrhage. No parenchymal hemorrhage, mass lesions or mass effe ct are seen. The fissures, ventricles and sulcal pattern appear mildly prominent. There appears to be mild atrophy. There is mild increased T2 signal in the periventricular white matter and in the deep white matter suggesting mild gliosis. Small old lacunar infarcts appear to be visualized in the right and left basal ganglia also right periventricular white matter anteriorly. These are best visualized on the FLAIR coronal images. There is an oval band of increased T2 signal seen in the inferior aspec t of the alfred to the right of midline suggesting an old area of gliosis or old lacunar infarct. No ab normal areas of restricted diffusion are seen that would suggest an acute ischemic event. Ventricles are midline. No abnormal extra-axial fluid collections or masses are identified. The corpus callosum, recent pituitary fossa and foramen magnum show no abnormalities. Minimal mucosal thickening seen posteriorly and inferiorly in the left maxillary sinus. Paranasal sin uses otherwise are clear. Mastoid air cells are clear. IMPRESSION: No acute abnormalities are identified. There is evidence of atrophy and gliosis as described. Old lacunar infarcts appear to be present as d escribed. No evidence of acute ischemic change. This document is electronically signed by Michael Donahue MD., Oct 31 2018 07:01:06 PM ET
--- NOTE | 2018-10-31 19:12 | Magnetic Resonance Report ---
PROCEDURE: MR MRA/MRV HEAD WO CON TECHNIQUE: Axial 3-D [id number] MR angiography of the [place] and brain was performed. The source images were reconstructed in various views using maximum intensity projection. HISTORY: stroke COMPARISONS: None . FINDINGS: Visualized vertebral arteries appear patent. There is a dominant left vertebral artery. Basilar arter y appears widely patent. Posterior communicating arteries appear to be present bilaterally. Posterior cerebral arteries bilaterally appear widely patent. The visualized right and left internal carotid arteries are patent. There appears to be approximately 50% stenosis of the left carotid siphon seen on the source images. The A1 segments and anterior cere bral arteries bilaterally appear widely patent. The middle cerebral arteries also appear widely paten t. No changes are seen that would suggest vascular malformation or aneurysm. IMPRESSION: The anterior and posterior circulation are intact however there appears to be 50% stenosis of the lef t carotid siphon seen on source images. No evidence for occlusion. This document is electronically signed by Michael Donahue MD., Oct 31 2018 07:10:33 PM ET
[2018-10-31] MEDS ORDERED: HEPARIN 10,000 UNITS/10 ML IV PRN (19:27)
[2018-10-31] MEDS ORDERED: NACL 0.9% 100 ML IV PRN (19:27)
--- NOTE | 2018-10-31 19:36 | Consultation ---
History of Present Illness - Reason for Consult Consult date: 10/31/18 end stage renal disease Requesting physician: DONTE ROBLES - History of Present Illness 48-year-old lady who is well-known to me with history of end-stage renal disease secondary to type 2 diabetes mellitus/hypertension. Patient is on hemodialysis on a Tuesday, and Tuesday schedule at [facility] dialysis clinic. Patient presented to the dialysis clinic today with altered mental status and was sent to the Hospital. Apparently family noticed patient to be poorly responsive this morning and they checked her blood sugar and it was 60. She was giving 6 glucose tabs and it improved to 170 with no significant improvement, in her mental status. Patient was sent to dialysis but dialysis clinic sent her to the hospital for further evaluation. By time of my examining her, patient has been given some sedative possibly for neuro imaging and is drowsy and not able to give a history and so my history is obtained from review of the records. 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 denies: alcohol abuse, prescription drug abuse, IV drug use Family history: CAD (father of a heart attack and complications of diabetes), diabetes (mother has diabetes and hypertension), hypertension Medications and Allergies Allergies Allergy/AdvReac Type Severity Reaction Status Date / Time ibuprofen Allergy Rash Verified 06/24/17 17:09 Home Medications Medication Instructions Recorded Confirmed Last Taken Type Amlodipine Besylate 10 mg PO DAILY 08/27/15 10/31/18 08/09/17 History AtorvaSTATin [Lipitor] 40 mg PO DAILY 08/27/15 10/31/18 08/09/17 History Gabapentin 600 mg PO TID 08/27/15 10/31/18 08/09/17 History cloNIDine [Catapres] 0.1 mg PO Q8HR #90 tablet 08/08/18 10/31/18 Unknown Rx Ferric Citrate (Nf) [Auryxia (Nf)] 210 mg PO TID 10/31/18 10/31/18 Unknown History Insulin Aspart [NovoLOG Flexpen] 15 - 20 units SUB-Q DAILY@0900 10/31/18 10/31/18 Unknown History Insulin Aspart [NovoLOG Flexpen] 15 - 20 units SUB-Q DAILY@1530 10/31/18 10/31/18 Unknown History Insulin Glargine,Hum.rec.anlog 15 - 20 units SUB-Q DAILY@2100 PRN 10/31/18 10/31/18 Unknown History [Lantus Solostar] levETIRAcetam [Keppra TAB] 750 mg PO BID 10/31/18 10/31/18 Unknown History Active Meds: Active Medications Acetaminophen (Tylenol) 650 mg PO Q4H PRN PRN Reason: Pain, Mild (1-3) Amlodipine Besylate (Norvasc) 10 mg PO DAILY [facility] Aspirin (Aspirin) 325 mg PO QDAY [facility] Atorvastatin Calcium (Lipitor) 40 mg PO DAILY [facility] Bisacodyl (Dulcolax) 10 mg [place] QDAY PRN PRN Reason: Constipation Clonidine HCl (Catapres) 0.1 mg PO Q8HR [facility] Last Admin: 10/31/18 15:06 Dose: Not Given Documented by: Gabapentin (Neurontin) 300 mg PO TID [facility] Last Admin: 10/31/18 15:06 Dose: Not Given Documented by: Heparin Sodium (Porcine) (Heparin) 5,000 unit SUB-Q Q12HR [facility] Ceftriaxone Sodium (Rocephin/Ns 1 Gm/50 Ml) 1 gm in 50 mls @ 100 mls/hr IV Q24H [facility]; Protocol Last Admin: 10/31/18 15:41 Dose: 100 mls/hr Documented by: Insulin Human Lispro (Humalog) 15 unit SUB-Q [facility] Last Admin: 10/31/18 17:51 Dose: Not Given Documented by: Levetiracetam (Keppra) 750 mg PO BID [facility] Magnesium Hydroxide (Milk Of Magnesia) 30 ml PO Q4H PRN PRN Reason: Constipation Metoclopramide HCl (Reglan) 10 mg PO Q6H PRN PRN Reason: Nausea And Vomiting Ondansetron HCl (Zofran) 4 mg IV Q8H PRN PRN Reason: Nausea And Vomiting Oxycodone/Acetaminophen (Percocet 5/325) 1 tab PO Q6H PRN PRN Reason: Pain, Moderate (4-6) Promethazine HCl (Phenergan) 25 mg [place] Q6H PRN PRN Reason: Nausea And Vomiting Sodium Chloride (Sodium Chloride Flush Syringe 10 Ml) 10 ml IV PRN PRN PRN Reason: LINE FLUSH Review of Systems ROS unobtainable: due to mental status Exam - Vital Signs Vital signs: Vital Signs Temp Pulse Resp BP Pulse Ox 96.8 F L 89 8 L 139/84 99 10/31/18 12:11 10/31/18 12:11 10/31/18 12:11 10/31/18 12:11 10/31/18 12:11 - Physical Exam Narrative exam: Middle-aged -[place] female lying in bed in no acute distress HEENT: NCAT, pink oral mucous membrane Neck: Supple, no venous distention CVS: S1S2 RRR with no murmur, rub or gallop Chest: Clear to auscultation Abdomen: Protuberant, soft, nontender, no organomegaly, bowel sounds are present Extremities: No edema Skin warm and dry, Genitourinary deferred Neuro: Drowsy, nonverbal, not following commands Results - Lab Results 10/31/18 11:52 10/31/18 11:52 Most recent lab results Calcium 9.7 mg/dL (8.4-10.2) 10/31/18 11:52 Assessment and Plan - Patient Problems (1) Altered mental status, unspecified Current Visit: No Status: Acute Plan to address problem: Metabolic encephalopathy probably related to hypoglycemia. Follow-up neuroimaging. Neurologist is managing (2) Hypertensive chronic kidney disease with stage 5 chronic kidney disease or end stage renal disease Current Visit: No Status: Chronic Plan to address problem: Resume antihypertensive medications and follow-up blood pressure (3) ESRD (end stage renal disease) on dialysis Current Visit: No Status: Chronic Plan to address problem: Hemodialysis in the morning. Attempt 1-2 L fluid removal. Dialyze on a 2K bath. 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
[2018-10-31] MEDS ORDERED: LOVENOX SUB-Q SCH ×2 (22:00)
[2018-10-31] MEDS: KEPPRA PO SCH (22:40)
--- NOTE | 2018-10-31 23:18 | Consultation ---
History of Present Illness Consult date: 10/31/18 Reason for Consult: aMS/stroke Chief complaint: AMS History of present illness: 48 yo female with ESRD due to DM and h/o stroke affecting left side was brought to dialysis today altered by family; staff at dialysis called 911 because she was not responding and noted some right sided weakness; usually very talkative a nd interactive; no family present- per EMS family noted she was altered when she woke up today- BGL 60 at home, they gave her candy and it increased but demeanor didn't change; did not receive dialysis Past History Past Medical History: diabetes, ESRD, hypertension, seizures, stroke (2013) Past Surgical History: cholecystectomy, Other (Av access placement) Social history: lives with family, smoking, other (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 denies: alcohol abuse, prescription drug abuse, IV drug use Family history: CAD (father of a heart attack and complications of diabetes), diabetes (mother has diabetes and hypertension), hypertension Medications and Allergies Allergies Allergy/AdvReac Type Severity Reaction Status Date / Time ibuprofen Allergy Rash Verified 06/24/17 17:09 Home Medications Medication Instructions Recorded Confirmed Last Taken Type Amlodipine Besylate 10 mg PO DAILY 08/27/15 10/31/18 08/09/17 History AtorvaSTATin [Lipitor] 40 mg PO DAILY 08/27/15 10/31/18 08/09/17 History Gabapentin 600 mg PO TID 08/27/15 10/31/18 08/09/17 History cloNIDine [Catapres] 0.1 mg PO Q8HR #90 tablet 08/08/18 10/31/18 Unknown Rx Ferric Citrate (Nf) [Auryxia (Nf)] 210 mg PO TID 10/31/18 10/31/18 Unknown History Insulin Aspart [NovoLOG Flexpen] 15 - 20 units SUB-Q DAILY@0900 10/31/18 10/31/18 Unknown History Insulin Aspart [NovoLOG Flexpen] 15 - 20 units SUB-Q DAILY@1530 10/31/18 10/31/18 Unknown History Insulin Glargine,Hum.rec.anlog 15 - 20 units SUB-Q DAILY@2100 PRN 10/31/18 10/31/18 Unknown History [Lantus Solostar] levETIRAcetam [Keppra TAB] 750 mg PO BID 10/31/18 10/31/18 Unknown History Active Meds: Active Medications Acetaminophen (Tylenol) 650 mg PO Q4H PRN PRN Reason: Pain, Mild (1-3) Amlodipine Besylate (Norvasc) 10 mg PO DAILY [facility] Aspirin (Aspirin) 325 mg PO QDAY [facility] Atorvastatin Calcium (Lipitor) 40 mg PO DAILY [facility] Bisacodyl (Dulcolax) 10 mg [place] QDAY PRN PRN Reason: Constipation Clonidine HCl (Catapres) 0.1 mg PO Q8HR [facility] Last Admin: 10/31/18 22:40 Dose: Not Given Documented by: Gabapentin (Neurontin) 300 mg PO TID [facility] Last Admin: 10/31/18 22:39 Dose: Not Given Documented by: Heparin Sodium (Porcine) (Heparin) 5,000 unit SUB-Q Q12HR [facility] Heparin Sodium (Porcine) (Heparin 10,000 Units/10 Ml) 1,000 unit IV DESIREE PRN PRN Reason: hemodialysis Ceftriaxone Sodium (Rocephin/Ns 1 Gm/50 Ml) 1 gm in 50 mls @ 100 mls/hr IV Q24H [facility]; Protocol Last Admin: 10/31/18 15:41 Dose: 100 mls/hr Documented by: Sodium Chloride (Nacl 0.9%) 100 mls @ 999 mls/hr IV DESIREE PRN PRN Reason: Hypotension Insulin Human Lispro (Humalog) 15 unit SUB-Q [facility] Last Admin: 10/31/18 17:51 Dose: Not Given Documented by: Levetiracetam (Keppra) 750 mg PO BID [facility] Last Admin: 10/31/18 22:40 Dose: Not Given Documented by: Magnesium Hydroxide (Milk Of Magnesia) 30 ml PO Q4H PRN PRN Reason: Constipation Metoclopramide HCl (Reglan) 10 mg PO Q6H PRN PRN Reason: Nausea And Vomiting Ondansetron HCl (Zofran) 4 mg IV Q8H PRN PRN Reason: Nausea And Vomiting Oxycodone/Acetaminophen (Percocet 5/325) 1 tab PO Q6H PRN PRN Reason: Pain, Moderate (4-6) Promethazine HCl (Phenergan) 25 mg [place] Q6H PRN PRN Reason: Nausea And Vomiting Sodium Chloride (Sodium Chloride Flush Syringe 10 Ml) 10 ml IV PRN PRN PRN Reason: LINE FLUSH Physical Examination - Vital Signs Vital Signs: Vital Signs Temp Pulse Resp BP Pulse Ox 96.8 F L 89 8 L 139/84 99 10/31/18 12:11 10/31/18 12:11 10/31/18 12:11 10/31/18 12:11 10/31/18 12:11 - Level of Consciousness 1a. Level of Consciousness: arousable/minor stimuli - LOC Questions 1b. LOC Questions: answers no questions correctly - LOC Command 1c. LOC Commands: performs no tasks correctly - Best Gaze 2. Best Gaze: normal - Visual 3. Visual: no visual loss - Facial Palsy 4. Facial Palsy: minor paralysis - Motor Arm 5a. Motor Arm Left: drift 5b. Motor Arm Right: no drift - Motor Leg 6a. Motor Leg Left: drift 6b. Motor Leg Right: drift - Limb Ataxia 7. Limb Ataxia: absent - Sensory 8. Sensory: mild/moderate sensory loss - Best Language 9. Best Language: mute/global aphasia - Dysarthria 10. Dysarthria: mute/anarrthric - Extinction and Inattention 11. Extinction/Inattention: no abnormality - Scoring Total Score: 15 Stroke Severity: Moderate Stroke Results - Laboratory Findings CBC and BMP: 10/31/18 11:52 10/31/18 11:52 Abnormal Lab Findings: Abnormal Labs 10/31/18 10/31/18 10/31/18 11:52 11:52 12:01 WBC 12.5 H RDW 16.8 H Seg Neutrophils % 75.0 H Seg Neutrophils # 9.4 H Chloride 93.1 L BUN 57 H Creatinine 10.0 H Glucose 181 H POC Glucose 160 H - Diagnostic Findings Additional findings: CT head neg for bleed Assessment and Plan [facility] Tele[facility]urology Consult Services Impression: r/o stroke ESRD Recommendations: no tPA given LKN time possibly an LVO- recommend MRI/MRA to r/o stroke and LVO w/o risking further harm to kidneys and worsening of metabolic function metabolic/infectious w/u if MRI negative d/w ed doc at bedside Delmy Victor MD [facility] metrics: date of consult 10/31/18 JEANNIEN unclear- 10/30/18 door: 1139 ts called 1142 ts connected 1144 NIHSS 1144 Medical Decision Making: - Extensive number of diagnosis or management options are considered above. - Extensive amount of complex data reviewed. - High risk of complication and/or morbidity or mortality are associated with differential diagnostic considerations above. - There may be uncertain outcome and increased probability of prolonged functional impairment or high probability of severe prolonged functional impairment associated with some of these differential diagnosis. Medical Data Reviewed: 1.Data reviewed include clinical labs, radiology, Medical Tests; 2.Tests results discussed w/performing or interpreting physician; 3.Obtaining/reviewing old medical records; 4.Obtaining case history from another source; 5.Independent review of image, tracing or specimen. Patient was informed the Neurology Consult would happen via telehealth (remote video) and consented to receiving care in this manner.
[2018-11-01] MEDS: CATAPRES PO SCH ×3 (05:58→22:23)
[2018-11-01 06:41] LABS: Calcium 9.2 mg/dL (8.4-10.2)
--- NOTE | 2018-11-01 09:18 | Vascular Lab Report ---
PROCEDURE: VL CAROTID DUPLEX BILAT TECHNIQUE: Carotid duplex Doppler ultrasound. Grayscale, color flow and spectral waveform images obt ained. HISTORY: stroke COMPARISON: None FINDINGS: Only very minimal plaque seen. There is no abnormal elevation in flow velocity seen on the right or t he left. ICA/CCA velocity ratios are normal. Findings correspond to stenosis of less than 50%. Verteb ral artery flow is antegrade bilaterally. IMPRESSION: No evidence of any hemodynamically significant stenosis. This document is electronically signed by Grace Gaming MD., Nov 01 2018 09:15:31 AM ET
[2018-11-01 10:17] LABS: Chol/HDL Ratio 5.77 %
--- NOTE | 2018-11-01 12:50 | Progress Note ---
Assessment and Plan - Patient Problems (1) Altered mental status, unspecified Current Visit: No Status: Acute Plan to address problem: Metabolic encephalopathy probably related to hypoglycemia. Follow-up neuroimaging. 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 Potassium was high this morning. 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 Chronic kidney disease stage: on chronic dialysis Qualified Code(s): E11.22 - Type 2 diabetes mellitus with diabetic chronic kidney disease; N18.6 - End stage renal disease; Z79.4 - residential (current) use of insulin; Z99.2 - Dependence on renal dialysis Plan to address problem: Blood sugar management by primary attending (6) Nicotine dependence Current Visit: Yes Status: Acute Qualifiers: Nicotine product type: cigarettes 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 She is on dialysis. She awakened and did say a few words like " I'm alright" Objective - Exam Narrative Exam: Middle-aged -Italian female lying in bed in no acute distress HEENT: NCAT, pink oral mucous membrane Neck: Supple, no venous distention CVS: S1S2 RRR with no murmur, rub or gallop Chest: Clear to auscultation Abdomen: Protuberant, soft, nontender, no organomegaly, bowel sounds are present Extremities: No edema Skin warm and dry, Genitourinary deferred Neuro: Drowsy, nonverbal, not following commands - Vital Signs Vital signs: Vital Signs - 12hr 11/01/18 11/01/18 11/01/18 03:48 04:00 07:33 Temperature 98.4 F 98.1 F Pulse Rate 96 H 83 98 H Respiratory 20 28 H Rate Blood Pressure 143/100 164/97 O2 Sat by Pulse 97 98 Oximetry 11/01/18 11/01/18 11/01/18 09:15 09:30 09:45 Temperature 98.1 F Pulse Rate 95 H 101 H 90 Respiratory 18 Rate Blood Pressure 170/103 134/94 125/103 O2 Sat by Pulse Oximetry 11/01/18 11/01/18 11/01/18 10:00 10:15 10:30 Temperature Pulse Rate 100 H 100 H 98 H Respiratory Rate Blood Pressure 147/82 138/105 130/84 O2 Sat by Pulse Oximetry 11/01/18 11/01/18 10:45 11:00 Temperature Pulse Rate 96 H 96 H Respiratory Rate Blood Pressure 138/81 141/84 O2 Sat by Pulse Oximetry - Lab 10/31/18 11:52 11/01/18 05:48 Most recent lab results Calcium 9.2 mg/dL (8.4-10.2) 11/01/18 05:48 Medications & Allergies - Medications Allergies/Adverse Reactions: Allergies ibuprofen Allergy (Verified 06/24/17 17:09) Rash Home Medications: Home Medications Medication Instructions Recorded Confirmed Last Taken Type Amlodipine Besylate 10 mg PO DAILY 08/27/15 10/31/18 08/09/17 History AtorvaSTATin [Lipitor] 40 mg PO DAILY 08/27/15 10/31/18 08/09/17 History Gabapentin 600 mg PO TID 08/27/15 10/31/18 08/09/17 History cloNIDine [Catapres] 0.1 mg PO Q8HR #90 tablet 08/08/18 10/31/18 Unknown Rx Ferric Citrate (Nf) [Auryxia (Nf)] 210 mg PO TID 10/31/18 10/31/18 Unknown History Insulin Aspart [NovoLOG Flexpen] 15 - 20 units SUB-Q DAILY@0900 10/31/18 10/31/18 Unknown History Insulin Aspart [NovoLOG Flexpen] 15 - 20 units SUB-Q DAILY@1530 10/31/18 10/31/18 Unknown History Insulin Glargine,Hum.rec.anlog 15 - 20 units SUB-Q DAILY@2100 PRN 10/31/18 10/31/18 Unknown History [Lantus Solostar] levETIRAcetam [Keppra TAB] 750 mg PO BID 10/31/18 10/31/18 Unknown History Active Medications: Generic Name Dose Route Start Last Admin Trade Name Freq PRN Reason Stop Dose Admin Acetaminophen 650 mg 10/31/18 14:24 Tylenol PO Q4H PRN Pain, Mild (1-3) Amlodipine Besylate 10 mg 11/01/18 10:00 Norvasc PO DAILY [facility] Aspirin 325 mg 11/01/18 10:00 Aspirin PO QDAY [facility]CLUDES [facility] Atorvastatin Calcium 40 mg 11/01/18 10:00 Lipitor PO DAILY [facility] Bisacodyl 10 mg 10/31/18 14:24 Dulcolax [place] QDAY PRN Constipation Clonidine HCl 0.1 mg 10/31/18 14:00 11/01/18 05:58 Catapres PO Not Given Q8HR [facility] Gabapentin 300 mg 10/31/18 14:00 10/31/18 22:39 Neurontin PO Not Given TID [facility] Heparin Sodium (Porcine) 5,000 unit 11/01/18 10:00 Heparin SUB-Q Q12HR [facility] Heparin Sodium (Porcine) 1,000 unit 10/31/18 19:27 Heparin 10,000 Units/10 Ml IV DESIREE PRN hemodialysis Ceftriaxone Sodium 1 gm in 50 mls @ 100 mls/hr 10/31/18 16:00 10/31/18 15:41 Rocephin/Ns 1 Gm/50 Ml IV 100 mls/hr Q24H [facility] Administration Protocol Sodium Chloride 100 mls @ 999 mls/hr 10/31/18 19:27 Nacl 0.9% IV DESIREE PRN Hypotension Insulin Human Lispro 15 unit 10/31/18 16:30 10/31/18 17:51 Humalog SUB-Q Not Given AC COUNT INCLUDES [facility] Levetiracetam 750 mg 10/31/18 22:00 10/31/18 22:40 Keppra PO Not Given BID COUNT INCLUDES [facility] Magnesium Hydroxide 30 ml 10/31/18 14:24 Milk Of Magnesia PO Q4H PRN Constipation Metoclopramide HCl 10 mg 10/31/18 14:24 Reglan PO Q6H PRN Nausea And Vomiting Ondansetron HCl 4 mg 10/31/18 14:24 Zofran IV Q8H PRN Nausea And Vomiting Oxycodone/Acetaminophen 1 tab 10/31/18 13:22 Percocet 5/325 PO Q6H PRN Pain, Moderate (4-6) Promethazine HCl 25 mg 10/31/18 14:24 Phenergan [place] Q6H PRN Nausea And Vomiting Sodium Chloride 10 ml 10/31/18 14:24 Sodium Chloride Flush Syringe 10 Ml IV PRN PRN LINE FLUSH
--- NOTE | 2018-11-01 13:30 | Progress Note ---
Assessment and Plan Assessment and plan: Encephalopathy. Etiology may be multifactorial secondary to CVA and metabolic causes related to hypoglycemia. However, patient still minimally responsive and does not follow commands. Also, given history of seizure disorder, check EEG and follow-up with neurology recommendations. Metabolic encephalopathy. Etiology may be secondary to hypoglycemia. Continue D5/D50 as needed. Neurology consulted. ESRD. Continue hemodialysis per nephrology. Hyperkalemia. Hemodialysis per nephrology. History of CVA with residual deficit. Diabetes mellitus type 2. ADA diet, insulin, accu check, hypoglycemia protocol, Nicotine dependence. Smoking cessation counseling, supportive care. History Interval history: 48 yo female with ESRD due to DM and h/o stroke affecting left side was brought to dialysis today altered by family; staff at dialysis called 911 because she was not responding and noted some right sided weakness; usually very talkative and interactive; no family present- per EMS family noted she was altered when she woke up today- BGL 60 at home, they gave her candy and it increased but demeanor didn't change; did not receive dialysis Upon my evaluation this morning in hemodialysis, patient was noted to be nonverbal and not following commands. Patient would intermittently move extremities spontaneously. Hospitalist Physical - Constitutional Vitals: Temp Pulse Resp BP Pulse Ox 98.1 F 96 H 18 141/84 98 11/01/18 09:15 11/01/18 11:00 11/01/18 09:15 11/01/18 11:00 11/01/18 07:33 General appearance: Present: mild distress, other (nonverbal and does not follow commands.) - EENT Eyes: Present: PERRL, EOM intact ENT: hearing intact, clear oral mucosa, dentition normal - Neck Neck: Present: supple, normal ROM - Respiratory Respiratory effort: normal Respiratory: bilateral: CTA - Cardiovascular Rhythm: regular Heart Sounds: Present: S1 & S2. Absent: gallop, rub - Extremities Extremities: no ischemia, No edema, Full ROM - Abdominal General gastrointestinal: soft, non-tender, non-distended, normal bowel sounds - Integumentary Integumentary: Present: clear, warm, dry - Neurologic Neurologic: CNII-XII intact, moves all extremities Results - Labs CBC & Chem 7: 10/31/18 11:52 11/01/18 05:48 Labs: Laboratory Last Values WBC 12.5 K/mm3 (4.5-11.0) H 10/31/18 11:52 RBC 4.83 M/mm3 (3.65-5.03) 10/31/18 11:52 Hgb 13.6 gm/dl (10.1-14.3) 10/31/18 11:52 Hct 41.9 % (30.3-42.9) 10/31/18 11:52 MCV 87 fl (79-97) 10/31/18 11:52 MCH 28 pg (28-32) 10/31/18 11:52 MCHC 32 % (30-34) 10/31/18 11:52 RDW 16.8 % (13.2-15.2) H 10/31/18 11:52 Plt Count 160 K/mm3 (140-440) 10/31/18 11:52 Lymph % (Auto) 16.7 % (13.4-35.0) 10/31/18 11:52 [place] % (Auto) 6.2 % (0.0-7.3) 10/31/18 11:52 Eos % (Auto) 1.5 % (0.0-4.3) 10/31/18 11:52 Baso % (Auto) 0.6 % (0.0-1.8) 10/31/18 11:52 Lymph # 2.1 K/mm3 (1.2-5.4) 10/31/18 11:52 [place] # 0.8 K/mm3 (0.0-0.8) 10/31/18 11:52 Eos # 0.2 K/mm3 (0.0-0.4) 10/31/18 11:52 Baso # 0.1 K/mm3 (0.0-0.1) 10/31/18 11:52 Seg Neutrophils % 75.0 % (40.0-70.0) H 10/31/18 11:52 Seg Neutrophils # 9.4 K/mm3 (1.8-7.7) H 10/31/18 11:52 PT 12.8 Sec. (12.2-14.9) 10/31/18 11:52 INR 0.91 (0.87-1.13) 10/31/18 11:52 APTT 34.9 Sec. (24.2-36.6) 10/31/18 11:52 17.9 Sec. (15.1-19.6) 10/31/18 11:52 Sodium 132 mmol/L (137-145) L 11/01/18 05:48 Potassium 6.8 mmol/L (3.6-5.0) H* D 11/01/18 05:48 Chloride 93.9 mmol/L (98-107) L 11/01/18 05:48 Carbon Dioxide 18 mmol/L (22-30) L D 11/01/18 05:48 27 mmol/L 11/01/18 05:48 BUN 62 mg/dL (7-17) H 11/01/18 05:48 11.0 mg/dL (0.7-1.2) H 11/01/18 05:48 Estimated GFR 5 ml/min 11/01/18 05:48 6 % 11/01/18 05:48 Glucose 154 mg/dL (65-100) H 11/01/18 05:48 POC Glucose 171 (70-105) H 11/01/18 07:36 Calcium 9.2 mg/dL (8.4-10.2) 11/01/18 05:48 41.0 umol/L (25-60) 10/31/18 19:45 113 units/L (30-135) 10/31/18 11:52 CK-MB (CK-2) 2.8 ng/mL (0.0-4.0) 10/31/18 11:52 CK-MB (CK-2) Rel Index 2.4 (0-4) 10/31/18 11:52 0.029 ng/mL (0.00-0.029) 10/31/18 11:52 Triglycerides 388 mg/dL (2-149) H 11/01/18 05:48 Cholesterol 179 mg/dL (50-199) 11/01/18 05:48 92 mg/dL (50-130) 11/01/18 05:48 31 mg/dL (40-59) L 11/01/18 05:48 5.77 % 11/01/18 05:48 Vitamin B12 711.8 pg/mL (211-911) 10/31/18 19:55 TSH 1.440 mlU/mL (0.270-4.200) 10/31/18 19:54 Active Medications - Current Medications Current Medications: Generic Name Dose Route Start Last Admin Trade Name Freq PRN Reason Stop Dose Admin Acetaminophen 650 mg 10/31/18 14:24 Tylenol PO Q4H PRN Pain, Mild (1-3) Amlodipine Besylate 10 mg 11/01/18 10:00 Norvasc PO DAILY [facility] Aspirin 325 mg 11/01/18 10:00 Aspirin PO QDAY [facility] Atorvastatin Calcium 40 mg 11/01/18 10:00 Lipitor PO DAILY [facility] Bisacodyl 10 mg 10/31/18 14:24 Dulcolax ME QDAY PRN Constipation Clonidine HCl 0.1 mg 10/31/18 14:00 11/01/18 05:58 Catapres PO Not Given Q8HR [facility] Gabapentin 300 mg 10/31/18 14:00 10/31/18 22:39 Neurontin PO Not Given TID [facility] Heparin Sodium (Porcine) 5,000 unit 11/01/18 10:00 Heparin SUB-Q Q12HR [facility] Heparin Sodium (Porcine) 1,000 unit 10/31/18 19:27 Heparin 10,000 Units/10 Ml IV DESIREE PRN hemodialysis Ceftriaxone Sodium 1 gm in 50 mls @ 100 mls/hr 10/31/18 16:00 10/31/18 15:41 Rocephin/Ns 1 Gm/50 Ml IV 100 mls/hr Q24H [facility] Administration Protocol Sodium Chloride 100 mls @ 999 mls/hr 10/31/18 19:27 Nacl 0.9% IV DESIREE PRN Hypotension Insulin Human Lispro 15 unit 10/31/18 16:30 10/31/18 17:51 Humalog SUB-Q Not Given AC [facility] Levetiracetam 750 mg 10/31/18 22:00 10/31/18 22:40 Keppra PO Not Given BID [facility] Magnesium Hydroxide 30 ml 10/31/18 14:24 Milk Of Magnesia PO Q4H PRN Constipation Metoclopramide HCl 10 mg 10/31/18 14:24 Reglan PO Q6H PRN Nausea And Vomiting Ondansetron HCl 4 mg 10/31/18 14:24 Zofran IV Q8H PRN Nausea And Vomiting Oxycodone/Acetaminophen 1 tab 10/31/18 13:22 Percocet 5/325 PO Q6H PRN Pain, Moderate (4-6) Promethazine HCl 25 mg 10/31/18 14:24 Phenergan ME Q6H PRN Nausea And Vomiting Sodium Chloride 10 ml 10/31/18 14:24 Sodium Chloride Flush Syringe 10 Ml IV PRN PRN LINE FLUSH Nutrition/Malnutrition Assess - Dietary Evaluation Nutrition/Malnutrition Findings: Nutrition Notes Start: 11/01/18 10:56 Freq: Status: Active Protocol: Document 11/01/18 10:56 CP (Rec: 11/01/18 10:57 CP [email or web address]) Co-Sign 11/01/18 10:56 LP Nutrition Notes Need for Assessment generated from: manager rfid,MST Initial or Follow up Brief Note Subjective/Other Information Pt screened for malnutrition and skin risk. Pt has a mckenna score of 12 and was gone for dialysis at time of visit. Nutrition Intervention Follow-Up By: 11/02/18 Additional Comments F/U: Malnutrition assessment, intakes
[2018-11-01] MEDS: NEURONTIN PO SCH ×3 (14:08→22:38)
[2018-11-01] MEDS: KEPPRA PO SCH ×2 (14:09→22:20)
[2018-11-01] MEDS: ASPIRIN PO SCH (14:09)
[2018-11-01] MEDS: NORVASC PO SCH (14:09)
[2018-11-01] MEDS: HEPARIN SUB-Q SCH ×2 (14:10→22:24)
[2018-11-01] MEDS: HumaLOG SUB-Q SCH ×2 (14:23→19:05)
[2018-11-01] MEDS: ROCEPHIN/NS 1 GM/50 ML 1 GM/50 ML BAG IV SCH (20:00)
[2018-11-02] MEDS: CATAPRES PO SCH ×2 (07:03→18:14)
--- NOTE | 2018-11-02 10:58 | Discharge Summary ---
Providers - Providers Date of Admission: 10/31/18 14:24 Date of discharge: 11/02/18 Attending physician: RAUL LINCOLN 10/31/18 14:24 Occupational Therapy Evaluate and Treat [CONS] Routine Comment: Reason For Exam: Neuro deficits Physical Therapy Evaluation and Treat [CONS] Routine Comment: Reason For Exam: Neuro deficits Speech Therapy Evaluation and Treat [CONS] Routine Reason For Exam: dysphagia 10/31/18 14:25 Speech Therapy Evaluation and Treat [CONS] Routine Reason For Exam: swallow eval 10/31/18 14:27 Consult to Physician [CONS] Routine Comment: Consulting Provider: JOSE RUIZ Physician Instructions: Reason For Exam: CVA 10/31/18 14:29 Consult to Physician [CONS] Routine Comment: Dr. Ceron notified @ 1438 Consulting Provider: NATASHA CERON Physician Instructions: Reason For Exam: ESRD [facility] Reason for admission: AMS Condition: Stable Hospital course: 48-year-old lady with history of end-stage renal disease secondary to type 2 diabetes mellitus/hypertension presents with brief episode of AMS. Patient is on hemodialysis on a Tuesday, and Tuesday schedule at [facility] dialysis clinic. Patient presented to the dialysis clinic the day [employer] with altered mental status and was sent to the Hospital. Apparently family noticed patient to be poorly responsive that morning and they checked her blood sugar and it was 60. She was giving 6 glucose tabs and it improved to 170 with no significant improvement, in her mental status. Patient was sent to dialysis but dialysis clinic sent her to the hospital for further evaluation. The patient was admitted with diagnosis of metabolic encephalopathy secondary to hypoglycemia. The patient did receive a workup to rule out CVA which included MRI/MRA, echocardiogram and carotid Dopplers. MRI and carotid Dopplers were f ound to be negative. Echocardiogram was completed this morning and can be followed up as an outpatient. Patient did have some hyperkalemia on 11/01 but received dialysis this morning and will be discharged after dialysis. Dedicated discharged time 32 min. Disposition: - TO HOME OR SELFCARE Time spent for discharge: 32 Core Measure Documentation - Palliative Care Palliative Care/ Comfort Measures: Not Applicable - Core Measures Any of the following diagnoses?: none Exam - Constitutional Vitals: Temp Pulse Resp BP Pulse Ox 98.2 F 91 H 18 146/74 95 11/02/18 07:43 11/02/18 07:43 11/02/18 07:43 11/02/18 07:43 11/02/18 07:43 General appearance: Present: no acute distress, well-nourished - EENT Eyes: Present: PERRL ENT: hearing intact, clear oral mucosa - Neck Neck: Present: supple, normal ROM - Respiratory Respiratory effort: normal Respiratory: bilateral: CTA - Cardiovascular Heart Sounds: Present: S1 & S2. Absent: rub, click - Extremities Extremities: pulses symmetrical, No edema Peripheral Pulses: within normal limits - Abdominal General gastrointestinal: Present: soft, non-tender, non-distended, normal bowel sounds Female genitourinary: Present: normal - Integumentary Integumentary: Present: clear, warm, dry - Musculoskeletal Musculoskeletal: gait normal, strength equal bilaterally - Psychiatric Psychiatric: appropriate mood/affect, intact judgment & insight - Neurologic Neurologic: CNII-XII intact, moves all extremities Plan Activity: no restrictions Weight Bearing Status: Full Weight Bearing Diet: regular Additional Instructions: F/U with Dr. Ceron for ECHO results Follow up with: [facility] [Primary Care Provider] - 7 Days JOSE RUIZ MD [Staff Physician] - 7 Days NATASHA CERON MD [Staff Physician] - 7 Days Prescriptions: cloNIDine [Catapres] 0.1 mg PO Q8HR #90 tablet levETIRAcetam [Keppra TAB] 750 mg PO BID #60 tablet AtorvaSTATin [Lipitor] 40 mg PO DAILY #30 tablet amLODIPine [Norvasc] 10 mg PO DAILY #30 tablet oxyCODONE /ACETAMINOPHEN [Percocet 5/325 mg] 1 tab PO Q6H PRN #8 tablet PRN Reason: Pain, Moderate (4-6)
[2018-11-02] MEDS ORDERED: NACL 0.9% 100 ML IV PRN (11:28)
--- NOTE | 2018-11-02 11:28 | Progress Note ---
Assessment and Plan - Patient Problems (1) Altered mental status, unspecified Current Visit: No Status: Acute Plan to address problem: Metabolic encephalopathy probably related to hypoglycemia. Mental status has improved back to patient's baseline (2) Hypertensive chronic kidney disease with stage 5 chronic kidney disease or end stage renal disease Current Visit: No Status: Chronic Plan to address problem: Continue antihypertensive medications and follow-up blood pressure (3) ESRD (end stage renal disease) on dialysis Current Visit: No Status: Chronic Plan to address problem: Continue Hemodialysis. Hemodialysis again today. 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 She has no complaints. She is more awake and verbal today. No chest pain or shortness of breath Objective - Exam Narrative Exam: Middle-aged -[place] female lying in bed in no acute distress HEENT: NCAT, pink oral mucous membrane Neck: Supple, no venous distention CVS: S1S2 RRR with no murmur, rub or gallop Chest: Clear to auscultation Abdomen: Protuberant, soft, nontender, no organomegaly, bowel sounds are present Extremities: No edema Skin warm and dry, Genitourinary deferred Neuro: Drowsy, nonverbal, not following commands - Vital Signs Vital signs: Vital Signs - 12hr 11/01/18 11/02/18 11/02/18 23:45 04:07 07:03 Temperature 98.4 F 97.8 F Pulse Rate 86 86 86 Respiratory 20 20 Rate Blood Pressure 139/65 135/74 135/74 O2 Sat by Pulse 93 93 Oximetry 11/02/18 07:43 Temperature 98.2 F Pulse Rate 91 H Respiratory 18 Rate Blood Pressure 146/74 O2 Sat by Pulse 95 Oximetry - Lab 10/31/18 11:52 11/01/18 05:48 Most recent lab results Calcium 9.2 mg/dL (8.4-10.2) 11/01/18 05:48 Medications & Allergies - Medications Allergies/Adverse Reactions: Allergies ibuprofen Allergy (Verified 06/24/17 17:09) Rash Home Medications: Home Medications Medication Instructions Recorded Confirmed Last Taken Type Gabapentin 600 mg PO TID 08/27/15 10/31/18 08/09/17 History Ferric Citrate (Nf) [Auryxia (Nf)] 210 mg PO TID 10/31/18 10/31/18 Unknown History Insulin Aspart [NovoLOG Flexpen] 15 - 20 units SUB-Q DAILY@0900 10/31/18 10/31/18 Unknown History Insulin Aspart [NovoLOG Flexpen] 15 - 20 units SUB-Q DAILY@1530 10/31/18 10/31/18 Unknown History Insulin Glargine,Hum.rec.anlog 15 - 20 units SUB-Q DAILY@2100 PRN 10/31/18 10/31/18 Unknown History [Lantus Solostar] AtorvaSTATin [Lipitor] 40 mg PO DAILY #30 tablet 11/02/18 Unknown Rx amLODIPine [Norvasc] 10 mg PO DAILY #30 tablet 11/02/18 Unknown Rx cloNIDine [Catapres] 0.1 mg PO Q8HR #90 tablet 11/02/18 Unknown Rx levETIRAcetam [Keppra TAB] 750 mg PO BID #60 tablet 11/02/18 Unknown Rx oxyCODONE /ACETAMINOPHEN [Percocet 1 tab PO Q6H PRN #8 tablet 11/02/18 Unknown Rx 5/325 mg] Active Medications: Generic Name Dose Route Start Last Admin Trade Name Freq PRN Reason Stop Dose Admin Acetaminophen 650 mg 10/31/18 14:24 Tylenol PO Q4H PRN Pain, Mild (1-3) Amlodipine Besylate 10 mg 11/01/18 10:00 11/01/18 14:09 Norvasc PO 10 mg DAILY [facility] Administration Aspirin 325 mg 11/01/18 10:00 11/01/18 14:09 Aspirin PO 325 mg QDAY [facility] Administration Atorvastatin Calcium 40 mg 11/01/18 10:00 11/01/18 14:09 Lipitor PO 40 mg DAILY [facility] Administration Bisacodyl 10 mg 10/31/18 14:24 Dulcolax HI QDAY PRN Constipation Clonidine HCl 0.1 mg 10/31/18 14:00 11/02/18 07:03 Catapres PO 0.1 mg Q8HR [facility] Administration Gabapentin 300 mg 10/31/18 14:00 11/01/18 22:38 Neurontin PO 300 mg TID [facility] Administration Heparin Sodium (Porcine) 5,000 unit 11/01/18 10:00 11/01/18 22:24 Heparin SUB-Q 5,000 unit Q12HR [facility] Administration Heparin Sodium (Porcine) 1,000 unit 10/31/18 19:27 Heparin 10,000 Units/10 Ml IV DESIREE PRN hemodialysis Ceftriaxone Sodium 1 gm in 50 mls @ 100 mls/hr 10/31/18 16:00 11/01/18 20:00 Rocephin/Ns 1 Gm/50 Ml IV 100 mls/hr Q24H [facility] Administration Protocol Sodium Chloride 100 mls @ 999 mls/hr 10/31/18 19:27 Nacl 0.9% IV DESIREE PRN Hypotension Insulin Human Lispro 15 unit 10/31/18 16:30 11/01/18 19:05 Humalog SUB-Q 15 unit AC [facility] Administration Levetiracetam 750 mg 10/31/18 22:00 11/01/18 22:20 Keppra PO 750 mg BID [facility] Administration Magnesium Hydroxide 30 ml 10/31/18 14:24 Milk Of Magnesia PO Q4H PRN Constipation Metoclopramide HCl 10 mg 10/31/18 14:24 Reglan PO Q6H PRN Nausea And Vomiting Ondansetron HCl 4 mg 10/31/18 14:24 Zofran IV Q8H PRN Nausea And Vomiting Oxycodone/Acetaminophen 1 tab 10/31/18 13:22 Percocet 5/325 PO Q6H PRN Pain, Moderate (4-6) Promethazine HCl 25 mg 10/31/18 14:24 Phenergan HI Q6H PRN Nausea And Vomiting Sodium Chloride 10 ml 10/31/18 14:24 Sodium Chloride Flush Syringe 10 Ml IV PRN PRN LINE FLUSH
[2018-11-02] MEDS: ASPIRIN PO SCH (11:44)
[2018-11-02] MEDS: KEPPRA PO SCH (11:44)
[2018-11-02] MEDS: NEURONTIN PO SCH ×2 (11:46→18:14)
[2018-11-02] MEDS: HumaLOG SUB-Q SCH ×3 (11:46→17:30)
[2018-11-02] MEDS: HEPARIN SUB-Q SCH (11:47)
[2018-11-02] MEDS ORDERED: NACL 0.9 (PRIMING MACHINE ONLY DIALYSIS) MC ONE (15:12)
[2018-11-02] MEDS: NORVASC PO SCH (17:31)
[2018-11-02 18:49] VITALS: BP 118/78
== END 2018-11-02 19:30 | disposition home or self-care (01) | DRG 70 ==
LOC: ED 11:38 → 4A 14:24
PROVIDERS: ADMIT Internal Medicine; ATTEND Hospitalist
PROC: 5A1D70Z Performance of Urinary Filtration, Intermittent, Less than 6 Hours Per Day (ICD-10-PCS; principal; 2018-11-01)
PROC: 5A1D70Z Performance of Urinary Filtration, Intermittent, Less than 6 Hours Per Day (ICD-10-PCS; 2018-11-02)
DX: G93.41 Metabolic encephalopathy (principal); N18.6 End stage renal disease; I12.0 Hypertensive chronic kidney disease with stage 5 chronic kidney disease or end stage renal disease; R65.10 Systemic inflammatory response syndrome (SIRS) of non-infectious origin without acute organ dysfunction; I69.354 Hemiplegia and hemiparesis following cerebral infarction affecting left non-dominant side; E11.649 Type 2 diabetes mellitus with hypoglycemia without coma; E11.42 Type 2 diabetes mellitus with diabetic polyneuropathy; K21.9 Gastro-esophageal reflux disease without esophagitis; G40.909 Epilepsy, unspecified, not intractable, without status epilepticus; F17.210 Nicotine dependence, cigarettes, uncomplicated; E11.22 Type 2 diabetes mellitus with diabetic chronic kidney disease; E87.5 Hyperkalemia; I69.322 Dysarthria following cerebral infarction; G89.29 Other chronic pain; Z99.2 Dependence on renal dialysis; Z83.3 Family history of diabetes mellitus; Z82.49 Family history of ischemic heart disease and other diseases of the circulatory system; Z90.49 Acquired absence of other specified parts of digestive tract; Z88.8 Allergy status to other drugs, medicaments and biological substances; Z79.4 Long term (current) use of insulin; Z79.899 Other long term (current) drug therapy; Z71.6 Tobacco abuse counseling
CPT/HCPCS: 36415; 70450; 70544; 70551; 71045; 80048; 80061; 80177; 82140; 82550; 82553; 82607; 82962; 84443; 84484; 85025; 85610; 85670; 85730; 93005; 93010; 93306; 93880; G0378; A9270-GY; J0696; J1644; J1815; J2060; J7030

== ENCOUNTER 2021-03-05 02:27 | Inpatient (IN) | payer MEDICARE ==
--- NOTE | 2021-03-05 02:41 | Emergency Department Report ---
ED Altered Mental Status HPI - General Chief Complaint: Altered Mental Status Stated Complaint: AMS PUI?: No Time Seen by Provider: 03/05/21 02:35 Source: EMS Mode of arrival: Stretcher Limitations: Altered Mental Status, Physical Limitation - History of Present Illness Initial Comments: Patient is a 50-year-old female that presents with EMS for altered mental status. Patient is minimally responsive. Patient only responds to pain. Report received from EMS. EMS states that the patient had a hypoglycemic episode earlier today and is now hyperglycemic. Patient's last known well time is unknown. Patient's family found the patient unresponsive in bed. Patient has history of diabetes, end-stage renal disease on dialysis. MD Complaint: altered mental status, decreased responsiveness -: Sudden Severity: severe - Related Data Home Medications Medication Instructions Recorded Confirmed Last Taken Gabapentin 600 mg PO TID 08/27/15 10/31/18 08/09/17 Ferric Citrate (Nf) [Auryxia] 210 mg PO TID 10/31/18 10/31/18 Unknown Insulin Aspart (Nf) [NovoLOG 15 - 20 units SUB-Q DAILY@0900 10/31/18 10/31/18 Unknown Flexpen] Insulin Aspart (Nf) [NovoLOG 15 - 20 units SUB-Q DAILY@1530 10/31/18 10/31/18 Unknown Flexpen] Insulin Glargine,Hum.rec.anlog 15 - 20 units SUB-Q DAILY@2100 PRN 10/31/1810/18 Unknown [Lantus Solostar] Previous Rx's Medication Instructions Recorded Last Taken Type AtorvaSTATin [Lipitor] 40 mg PO DAILY #30 tablet 11/02/18 Unknown Rx amLODIPine 10 mg PO DAILY #30 tablet 11/02/18 Unknown Rx cloNIDine [Catapres] 0.1 mg PO Q8HR #90 tablet 11/02/18 Unknown Rx levETIRAcetam [Keppra TAB] 750 mg PO BID #60 tablet 11/02/18 Unknown Rx oxyCODONE /ACETAMINOPHEN [Percocet 1 tab PO Q6H PRN #8 tablet 11/02/18 Unknown Rx 5/325 mg] Allergies Allergy/AdvReac Type Severity Reaction Status Date / Time ibuprofen Allergy Rash Verified 06/24/17 17:09 ED Review of Systems ROS: Stated complaint: AMS Other details as noted in HPI Comment: Unobtainable due to pts medical conditions ED Past Medical Hx - Past Medical History Previous Medical History?: Yes Hx Hypertension: Yes (X 10 YRS) 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) Hx Congestive Heart Failure: No Hx Diabetes: Yes (NOT WELL CONTROLLED) Hx Deep Vein Thrombosis: No Hx GERD: (NO MEDS) Hx Renal Disease: Yes (chronic renal insuf) Hx Seizures: Yes (LAST SEIZURE 8 MONTHS AGO- NO MEDS ( LOW BLD SUGAR)) Hx Asthma: No Hx COPD: No Hx HIV: No - Surgical History Past Surgical History?: Yes Hx Pacemaker: No Hx Internal Defibrillator: No Hx Cholecystectomy: Yes Additional Surgical History: Right chest permcath - Family History Family history: no significant - Social History Smoking Status: Never Smoker Substance Use Type: None - Medications Home Medications: Home Medications Medication Instructions Recorded Confirmed Last Taken Type Gabapentin 600 mg PO TID 08/27/15 10/31/18 08/09/17 History Ferric Citrate (Nf) [Auryxia] 210 mg PO TID 10/31/18 10/31/18 Unknown History Insulin Aspart (Nf) [NovoLOG 15 - 20 units SUB-Q DAILY@0900 10/31/18 10/31/18 Unknown History Flexpen] Insulin Aspart (Nf) [NovoLOG 15 - 20 units SUB-Q DAILY@1530 10/31/18 10/31/18 Unknown History Flexpen] Insulin Glargine,Hum.rec.anlog 15 - 20 units SUB-Q DAILY@2100 PRN 10/31/18 10/31/18 Unknown History [Lantus Solostar] AtorvaSTATin [Lipitor] 40 mg PO DAILY #30 tablet 11/02/18 Unknown Rx amLODIPine 10 mg PO DAILY #30 tablet 11/02/18 Unknown Rx cloNIDine [Catapres] 0.1 mg PO Q8HR #90 tablet 11/02/18 Unknown Rx levETIRAcetam [Keppra TAB] 750 mg PO BID #60 tablet 11/02/18 Unknown Rx oxyCODONE /ACETAMINOPHEN [Percocet 1 tab PO Q6H PRN #8 tablet 11/02/18 Unknown Rx 5/325 mg] ED Physical Exam - General General appearance: in no apparent distress, obtunded - Head Head exam: Present: atraumatic, normocephalic - Eye Eye exam: Present: normal appearance, PERRL Pupils: Present: normal accommodation - ENT ENT exam: Present: mucous membranes dry - Neck Neck exam: Present: normal inspection - Respiratory Respiratory exam: Present: normal lung sounds bilaterally. Absent: respiratory distress, wheezes, rales - Cardiovascular Cardiovascular Exam: Present: regular rate, normal rhythm. Absent: systolic murmur, diastolic murmur, rubs, gallop - GI/Abdominal GI/Abdominal exam: Present: soft, normal bowel sounds - Extremities Exam Extremities exam: Present: normal inspection - Back Exam Back exam: Present: normal inspection - Neurological Exam Neurological exam: Present: altered - Expanded Neurological Exam Expanded Best Eye Response (Yfn): (2) open to pain Best Motor Response (Yfn): (4) withdraws to pain Best Verbal Response ([place]): (2) incomprehsible sounds [place] Total: 8 - Psychiatric Psychiatric exam: Present: normal affect, normal mood - Skin Skin exam: Present: warm, dry, intact, normal color. Absent: rash - Assessment Assessment Interval: Baseline - Level of Consciousness 1a. Level of Consciousness: resp stimuli/obtunded - LOC Questions 1b. LOC Questions: answers no questions correctly - LOC Command 1c. LOC Commands: performs no tasks correctly - Best Gaze 2. Best Gaze: normal - Visual 3. Visual: no visual loss - Facial Palsy 4. Facial Palsy: normal symmetrical movement - Motor Arm 5a. Motor Arm Left: some gravity effort 5b. Motor Arm Right: some gravity effort - Motor Leg 6a. Motor Leg Left: some gravity effort 6b. Motor Leg Right: some gravity effort - Limb Ataxia 7. Limb Ataxia: absent - Sensory 8. Sensory: coma/unresponsive - Best Language 9. Best Language: coma/unresponsive - Dysarthria 10. Dysarthria: intubated or other barrier - Extinction and Inattention 11. Extinction/Inattention: no abnormality - Scoring Total Score: 19 Stroke Severity: Moderate to Severe Stroke ED Course Vital Signs 03/05/21 03/05/21 03/05/21 02:44 02:46 02:50 Temperature 98.4 F Pulse Rate 84 86 84 Respiratory 12 10 L 12 Rate Blood Pressure Blood Pressure 188/93 [Left] O2 Sat by Pulse 100 98 100 Oximetry 03/05/21 03/05/21 03/05/21 03:00 03:16 03:30 Temperature Pulse Rate 84 90 Respiratory 13 16 Rate Blood Pressure 188/93 188/93 Blood Pressure [Left] O2 Sat by Pulse 100 100 98 Oximetry 03/05/21 03/05/21 03/05/21 03:46 04:00 04:03 Temperature Pulse Rate 87 88 Respiratory 14 13 Rate Blood Pressure 222/113 222/113 Blood Pressure [Left] O2 Sat by Pulse 99 100 97 Oximetry 03/05/21 03/05/21 03/05/21 04:16 04:30 04:44 Temperature 98.7 F Pulse Rate 92 H 84 Respiratory 21 11 L Rate Blood Pressure 222/113 222/113 Blood Pressure [Left] O2 Sat by Pulse 100 99 Oximetry 03/05/21 03/05/21 04:46 05:00 Temperature Pulse Rate 82 81 Respiratory 12 12 Rate Blood Pressure 182/94 171/94 Blood Pressure [Left] O2 Sat by Pulse 98 98 Oximetry - Reevaluation(s) Reevaluation #1: Multiple attempts have been made to place a peripheral IV, however all attempts have been unsuccessful. A left tibial IO was placed. See procedure note.No change in neuro status. 03/05/21 04:10 Reevaluation #2: Patient to be admitted to the hospitalist service. No change in mentation. No change in neuro exam. 03/05/21 05:49 - Consultations Consultation #1: Hospitalist consulted for admission. Hospitalist to admit patient. 03/05/21 05:50 - IO Left Tibia Consent Obtained: emergent situation Time Out Performed: Yes IO Instrument Used to Penetrate the Cortex: battery powered IO drill Patient Tolerated Procedure: well, no complications Complications: none - Lab Data Result diagrams: 03/05/21 04:39 03/05/21 04:39 Lab Results 03/05/21 03/05/21 03/05/21 Range/Units 02:34 04:14 04:39 WBC 9.8 (4.5-11.0) K/mm3 RBC 3.51 L (3.65-5.03) M/mm3 Hgb 9.9 L (10.1-14.3) gm/dl Hct 30.0 L (30.3-42.9) % MCV 85 (79-97) fl MCH 28 (28-32) pg MCHC 33 (30-34) % RDW 16.8 H (13.2-15.2) % Plt Count 185 (140-440) K/mm3 Lymph % (Auto) 13.6 (13.4-35.0) % Brown % (Auto) 6.2 (0.0-7.3) % Eos % (Auto) 1.9 (0.0-4.3) % Baso % (Auto) 0.7 (0.0-1.8) % Lymph # (Auto) 1.3 (1.2-5.4) K/mm3 Brown # (Auto) 0.6 (0.0-0.8) K/mm3 Eos # (Auto) 0.2 (0.0-0.4) K/mm3 Baso # (Auto) 0.1 (0.0-0.1) K/mm3 Seg Neutrophils % 77.6 H (40.0-70.0) % Seg Neutrophils # 7.6 (1.8-7.7) K/mm3 Sodium (137-145) mmol/L Potassium (3.6-5.0) mmol/L Chloride (98-107) mmol/L Carbon Dioxide (22-30) mmol/L Anion Gap mmol/L BUN (7-17) mg/dL Creatinine (0.6-1.2) mg/dL Estimated GFR ml/min BUN/Creatinine Ratio % Glucose (65-100) mg/dL POC Glucose 167 H 198 H (70-105) mg/dL Calcium (8.4-10.2) mg/dL Total Bilirubin (0.1-1.2) mg/dL AST (5-40) units/L ALT (7-56) units/L Alkaline Phosphatase (35-129) units/L Ammonia (25-60) umol/L Troponin T (0.00-0.029) ng/mL Total Protein (6.3-8.2) g/dL Albumin (3.9-5) g/dL Albumin/Globulin Ratio % Triglycerides (2-149) mg/dL Cholesterol (50-199) mg/dL LDL Cholesterol Direct (50-130) mg/dL HDL Cholesterol (40-59) mg/dL Cholesterol/HDL Ratio % 03/05/21 03/05/21 Range/Units 04:39 04:39 WBC (4.5-11.0) K/mm3 RBC (3.65-5.03) M/mm3 Hgb (10.1-14.3) gm/dl Hct (30.3-42.9) % MCV (79-97) fl MCH (28-32) pg MCHC (30-34) % RDW (13.2-15.2) % Plt Count (140-440) K/mm3 Lymph % (Auto) (13.4-35.0) % Brown % (Auto) (0.0-7.3) % Eos % (Auto) (0.0-4.3) % Baso % (Auto) (0.0-1.8) % Lymph # (Auto) (1.2-5.4) K/mm3 Brown # (Auto) (0.0-0.8) K/mm3 Eos # (Auto) (0.0-0.4) K/mm3 Baso # (Auto) (0.0-0.1) K/mm3 Seg Neutrophils % (40.0-70.0) % Seg Neutrophils # (1.8-7.7) K/mm3 Sodium 137 (137-145) mmol/L Potassium 4.3 (3.6-5.0) mmol/L Chloride 95.9 L (98-107) mmol/L Carbon Dioxide 23 (22-30) mmol/L Anion Gap 22 mmol/L BUN 46 H (7-17) mg/dL Creatinine 7.6 H (0.6-1.2) mg/dL Estimated GFR 7 ml/min BUN/Creatinine Ratio 6 % Glucose 243 H (65-100) mg/dL POC Glucose (70-105) mg/dL Calcium 9.1 (8.4-10.2) mg/dL Total Bilirubin 0.30 (0.1-1.2) mg/dL AST 9 (5-40) units/L ALT 11 (7-56) units/L Alkaline Phosphatase 238 H (35-129) units/L Ammonia 17.0 L (25-60) umol/L Troponin T 0.034 H (0.00-0.029) ng/mL Total Protein 7.4 (6.3-8.2) g/dL Albumin 3.8 L (3.9-5) g/dL Albumin/Globulin Ratio 1.1 % Triglycerides 363 H (2-149) mg/dL Cholesterol 154 (50-199) mg/dL LDL Cholesterol Direct 73 (50-130) mg/dL HDL Cholesterol 34 L (40-59) mg/dL Cholesterol/HDL Ratio 4.52 % - EKG Data -: EKG Interpreted by Me EKG shows normal: sinus rhythm, axis, intervals, QRS complexes, ST-T waves Rate: normal - Radiology Data Radiology results: report reviewed, image reviewed CHEST 1 VIEW 03/05/2021 2:39 AM INDICATION / CLINICAL INFORMATION: Altered Mental Status. COMPARISON: 03/05/2021 FINDINGS: SUPPORT DEVICES: None. HEART / MEDIASTINUM: No significant abnormality. LUNGS / PLEURA: Mild increased pulmonary vascularity No pneumothorax. CT HEAD WITHOUT CONTRAST INDICATION / CLINICAL INFORMATION: Altered Mental Status. TECHNIQUE: All CT scans at this location are performed using CT dose reduction for [place] by means of automated exposure control. COMPARISON: 04/18/2020 FINDINGS: Diffuse cerebral atrophy. There are periventricular and central white matter areas of low- attenuation suggesting chronic small vessel disease. Old lacunar infarcts are seen. No acute hemorrhage. ADDITIONAL FINDINGS: None. IMPRESSION: 1. No acute intracranial abnormality. - Medical Decision Making Patient is a 50-year-old female who presents emergency room for altered mental status. Patient has had this in the past. Patient is only responsive to pain .. Patient makes incomprehensible sounds. Patient a GCS of 8. Patient had labs done which were consistent with end-stage renal disease. Patient has a history of end-stage renal disease and is currently on dialysis. Patient had a chest x-ray which was negative for acute findings. Patient had a head CT for altered mental status and it was negative for acute findings. Patient had a left tibial IO placed for IV access. Patient admitted to the hospitalist service for further evaluation and treatment. Critical care time documented due to the multiple reassessments, prolonged time at the bedside, interpretation of diagnostics and labs. - Differential Diagnosis Altered mental status, ICH, electrolyte imbalance, pneumonia, Critical Care Time: Yes Critical care time in (mins) excluding proc time.: 35 Critical care attestation.: If time is entered above; I have spent that time in minutes in the direct care of this critically ill patient, excluding procedure time. Critical Care Time: 35 minutes ED Disposition Clinical Impression: Encephalopathy, Chronic kidney disease, stage IV (severe), ESRD (end stage renal disease) on dialysis Altered mental status, unspecified Qualifiers: Altered mental status type: unspecified Qualified Code(s): R41.82 - Altered mental status, unspecified Anemia Qualifiers: Anemia type: unspecified type Qualified Code(s): D64.9 - Anemia, unspecified Disposition: 09 ADMITTED INPATIENT Is pt being admited?: Yes Does the pt Need Aspirin: No Condition: Critical Time of Disposition: 05:51
--- NOTE | 2021-03-05 03:36 | Cat Scan Report ---
CT HEAD WITHOUT CONTRAST INDICATION / CLINICAL INFORMATION: Altered Mental Status. TECHNIQUE: All CT scans at this location are performed using CT dose reduction for [place] by means of automated e xposure control. COMPARISON: 04/18/2020 FINDINGS: Diffuse cerebral atrophy. There are periventricular and central white matter areas of low-attenuation suggesting chronic small vessel disease. Old lacunar infarcts are seen. No acute hemorrhage. ADDITIONAL FINDINGS: None. IMPRESSION: 1. No acute intracranial abnormality. Signer Name: Thaddeus Juárez MD Signed: 03/05/2021 3:31 AM Workstation Name: [id number]
--- NOTE | 2021-03-05 03:37 | XRay Report ---
CHEST 1 VIEW 03/05/2021 2:39 AM INDICATION / CLINICAL INFORMATION: Altered Mental Status. COMPARISON: 03/05/2021 FINDINGS: SUPPORT DEVICES: None. HEART / MEDIASTINUM: No significant abnormality. LUNGS / PLEURA: Mild increased pulmonary vascularity No pneumothorax. Signer Name: Thaddeus Juárez MD Signed: 03/05/2021 3:33 AM Workstation Name: [id number]
[2021-03-05 05:07] LABS: Basophils # (Auto) 0.1 K/mm3 (0.0-0.1); Basophils % (Auto) 0.7 % (0.0-1.8); Eosinophils # (Auto) 0.2 K/mm3 (0.0-0.4); Eosinophils % (Auto) 1.9 % (0.0-4.3); Hemoglobin 9.9 gm/dl (10.1-14.3); Lymphocytes # (Auto) 1.3 K/mm3 (1.2-5.4); Lymphocytes % (Auto) 13.6 % (13.4-35.0); Mean Corpuscular HGB Conc 33 % (30-34); Mean Corpuscular Volume 85 fl (79-97); Monocytes # (Auto) 0.6 K/mm3 (0.0-0.8); Monocytes % (Auto) 6.2 % (0.0-7.3); Platelet Count 185 K/mm3 (140-440); Red Blood Count 3.51 M/mm3 (3.65-5.03); Red Cell Distribution Width 16.8 % (13.2-15.2)
[2021-03-05 05:22] LABS: Albumin 3.8 g/dL (3.9-5); Calcium 9.1 mg/dL (8.4-10.2)
[2021-03-05 05:34] LABS: Chol/HDL Ratio 4.52 %
[2021-03-05] MEDS ORDERED: MAGNESIUM HYDROXIDE (MOM) ORAL LIQD UDC PO PRN (06:13)
[2021-03-05] MEDS ORDERED: MORPHINE 2 MG/1 ML INJ IV PRN (06:13)
[2021-03-05] MEDS ORDERED: ACETAMINOPHEN 650 MG RECT SUPP PR PRN (06:13)
[2021-03-05] MEDS ORDERED: DEXTROSE 50% IN WATER (25GM) 50 ML SYRINGE IV PRN (06:13)
[2021-03-05] MEDS ORDERED: MORPHINE 4 MG/1 ML INJ IV PRN (06:13)
--- NOTE | 2021-03-05 06:23 | History and Physical Report ---
History of Present Illness Date of examination: 03/05/21 Date of admission: 03/05/2021 Chief complaint: Altered mental status History of present illness: 50-year-old female with known history of end-stage renal disease on dialysis, history of seizure disorder, CVA, diabetes mellitus and hypertension brought into the emergency room today for changes in mental status. Patient unable to give any history at this time most of the history was gotten from the ER staff. According to EMS patient was said to be hypoglycemic earlier in the day and later became hyperglycemic now. Last well-known time is unknown. Patient was said to have been found unresponsive in bed by the family. Blood pressure was quite elevated upon arrival in the emergency room with systolic in the 200s and diastolic in the low 100s. Work-up in the emergency room today reveals a hemoglobin of 9.9 and hematocrit of 30. BUN was 46 and creatinine of 7.6. Troponin was 0.034. Checks x-ray reveals:Mild increased pulmonary vascularity No pneumothorax. CT scan of the head reveals no acute intracranial abnormality. Patient is being admitted with altered mental status with unclear etiology. Past History Past Medical History: diabetes, dialysis, ESRD, GERD, hypertension, seizures (Last seizure was about 8 months ago secondary to hypoglycemia), stroke (We did receive to her left sided weakness and speech deficit) Past Surgical History: Other (History of right chest permacath, right upper arm AV fistula placement) Social history: no significant social history Family history: no significant family history Medications and Allergies Allergies Allergy/AdvReac Type Severity Reaction Status Date / Time ibuprofen Allergy Rash Verified 06/24/17 17:09 Home Medications Medication Instructions Recorded Confirmed Last Taken Type Gabapentin 600 mg PO TID 08/27/15 10/31/18 08/09/17 History Ferric Citrate (Nf) [Auryxia] 210 mg PO TID 10/31/18 10/31/18 Unknown History Insulin Aspart (Nf) [NovoLOG 15 - 20 units SUB-Q DAILY@0900 10/31/18 10/31/18 Unknown History Flexpen] Insulin Aspart (Nf) [NovoLOG 15 - 20 units SUB-Q DAILY@1530 10/31/18 10/31/18 Unknown History Flexpen] Insulin Glargine,Hum.rec.anlog 15 - 20 units SUB-Q DAILY@2100 PRN 10/31/18 10/31/18 Unknown History [Lantus Solostar] AtorvaSTATin [Lipitor] 40 mg PO DAILY #30 tablet 11/02/18 Unknown Rx amLODIPine 10 mg PO DAILY #30 tablet 11/02/18 Unknown Rx cloNIDine [Catapres] 0.1 mg PO Q8HR #90 tablet 11/02/18 Unknown Rx levETIRAcetam [Keppra TAB] 750 mg PO BID #60 tablet 11/02/18 Unknown Rx oxyCODONE /ACETAMINOPHEN [Percocet 1 tab PO Q6H PRN #8 tablet 11/02/18 Unknown Rx 5/325 mg] Active Meds: Active Medications Acetaminophen (Acetaminophen 650 Mg Rect Supp) 650 mg NM Q6H PRN PRN Reason: Pain MILD(1-3)/Fever >100.5/LEE Dextrose (Dextrose 50% In Water (25gm) 50 Ml Syringe) 50 ml IV Q30MIN PRN; Protocol PRN Reason: Hypoglycemia Heparin Sodium (Porcine) (Heparin 5,000 Unit/1 Ml Vial) 5,000 unit SUB-Q Q8HR LORENE Insulin Human Lispro (Insulin Lispro 100 Unit/Ml) 0 unit SUB-Q ACHS LORENE; Protocol Magnesium Hydroxide (Magnesium Hydroxide (Mom) Oral Liqd Udc) 30 ml PO Q4H PRN PRN Reason: Constipation Morphine Sulfate (Morphine 2 Mg/1 Ml Inj) 2 mg IV Q4H PRN PRN Reason: Pain, Moderate (4-6) Morphine Sulfate (Morphine 4 Mg/1 Ml Inj) 4 mg IV Q4H PRN PRN Reason: Pain , Severe (7-10) Sodium Chloride (Sodium Chloride 0.9% 10 Ml Flush Syringe) 10 ml IV BID LORENE Sodium Chloride (Sodium Chloride 0.9% 10 Ml Flush Syringe) 10 ml IV PRN PRN PRN Reason: LINE FLUSH Review of Systems ROS unobtainable: due to mental status Exam - Constitutional Vitals: Temp Pulse Resp BP Pulse Ox 98.7 F 81 12 171/94 98 03/05/21 04:44 03/05/21 05:00 03/05/21 05:00 03/05/21 05:00 03/05/21 05:00 General appearance: Present: no acute distress, well-nourished - EENT Eyes: Present: PERRL, EOM intact. Absent: scleral icterus ENT: hearing intact, clear oral mucosa, dentition normal - Neck Neck: Present: supple, normal ROM - Respiratory Respiratory effort: normal Respiratory: bilateral: CTA - Cardiovascular Rhythm: regular Heart Sounds: Present: S1 & S2. Absent: gallop, systolic murmur, diastolic murmur, rub, click - Extremities Extremities: no ischemia, pulses intact, pulses symmetrical, No edema, normal temperature, normal color, Full ROM - Integumentary Integumentary: Present: clear, warm, dry. Absent: rash - Musculoskeletal Musculoskeletal: generalized weakness - Psychiatric Psychiatric: cooperative, other (Obtunded) - Neurologic Neurologic: other (Obtunded) HEART Score - HEART Score Troponin: Troponin T 0.034 ng/mL (0.00-0.029) H 03/05/21 04:39 Results - Labs CBC & Chem 7: 03/05/21 04:39 03/05/21 04:39 Labs: Abnormal lab results 03/05/21 03/05/21 03/05/21 Range/Units 02:34 04:14 04:39 RBC 3.51 L (3.65-5.03) M/mm3 Hgb 9.9 L (10.1-14.3) gm/dl Hct 30.0 L (30.3-42.9) % RDW 16.8 H (13.2-15.2) % Seg Neutrophils % 77.6 H (40.0-70.0) % Chloride (98-107) mmol/L BUN (7-17) mg/dL Creatinine (0.6-1.2) mg/dL Glucose (65-100) mg/dL POC Glucose 167 H 198 H (70-105) mg/dL Alkaline Phosphatase (35-129) units/L Ammonia (25-60) umol/L Troponin T (0.00-0.029) ng/mL Albumin (3.9-5) g/dL Triglycerides (2-149) mg/dL HDL Cholesterol (40-59) mg/dL 03/05/21 03/05/21 Range/Units 04:39 04:39 RBC (3.65-5.03) M/mm3 Hgb (10.1-14.3) gm/dl Hct (30.3-42.9) % RDW (13.2-15.2) % Seg Neutrophils % (40.0-70.0) % Chloride 95.9 L (98-107) mmol/L BUN 46 H (7-17) mg/dL Creatinine 7.6 H (0.6-1.2) mg/dL Glucose 243 H (65-100) mg/dL POC Glucose (70-105) mg/dL Alkaline Phosphatase 238 H (35-129) units/L Ammonia 17.0 L (25-60) umol/L Troponin T 0.034 H (0.00-0.029) ng/mL Albumin 3.8 L (3.9-5) g/dL Triglycerides 363 H (2-149) mg/dL HDL Cholesterol 34 L (40-59) mg/dL Assessment and Plan - Patient Problems (1) Altered mental status, unspecified Current Visit: Yes Status: Acute Qualifiers: Altered mental status type: unspecified Qualified Code(s): R41.82 - Altered mental status, unspecified Plan to address problem: Etiology is unclear. Patient is known to have history of seizure disorder and CVA in the past. Unclear if patient had any seizure activity. We will monitor mental status and frequent neurochecks. We will schedule for MRI of the brain and also request neurology evaluation. (2) ESRD (end stage renal disease) on dialysis Current Visit: Yes Status: Chronic Plan to address problem: Patient is on dialysis. We will place consult nephrology for evaluation (3) Accelerated hypertension Current Visit: No Status: Acute Plan to address problem: Blood pressure upon arrival in the emergency room was 222/113. We placed on IV hydralazine as needed. Will monitor for vital signs closely. (4) Diabetes mellitus Current Visit: No Status: Acute Plan to address problem: Patient placed on sliding scale. We will monitor Accu-Cheks closely. (5) Seizure disorder Current Visit: No Status: Acute Plan to address problem: Patient be placed on seizure precautions. We will resume routine home medications once patient is able to tolerate. P.o. intake. Consult will be placed to neurology for evaluation. (6) Anemia Current Visit: Yes Status: Acute Qualifiers: Anemia type: unspecified type Qualified Code(s): D64.9 - Anemia, unspecified Plan to address problem: Possibly anemia of chronic disease. We will monitor for CBC. (7) Elevated troponin Current Visit: Yes Status: Acute Plan to address problem: Possibly secondary to the end-stage renal disease. We will check serial troponins. Cardiology will be consulted if needed. (8) DVT prophylaxis Current Visit: No Status: Acute Plan to address problem: Patient placed on subcutaneous heparin. (9) Full code status Current Visit: Yes Status: Acute Plan to address problem: Patient is full code.
[2021-03-05] MEDS ORDERED: LORazepam 2 MG/ML VIAL IV PRN (07:00)
[2021-03-05] MEDS: INSULIN LISPRO 100 UNIT/ML SUB-Q SCH ×4 (07:31→22:03)
[2021-03-05] MEDS: hydrALAZINE 20 MG/1 ML INJ IV PRN ×2 (07:44→23:08)
--- NOTE | 2021-03-05 12:17 | Progress Note ---
Assessment and Plan Assessment and plan: 50-year-old female with known history of end-stage renal disease on dialysis, history of seizure disorder, CVA, diabetes mellitus and hypertension brought into the emergency room today for changes in mental status. Patient unable to give any history at this time most of the history was gotten from the ER staff. According to EMS patient was said to be hypoglycemic earlier in the day and later became hyperglycemic Acute encephalopathy. ESRD on HD Accelerated hypertension Diabetes mellitus type 2 Seizure disorder. Anemia of chronic disease. Elevated troponin 03/05/2021. Await neurology evaluation. CT head reveals no acute abnormality. Await MRI of the brain. Check ammonia and TSH levels. History Interval history: Patient remains confused and somnolent. Hospitalist Physical - Constitutional Vitals: Temp Pulse Resp BP Pulse Ox 97.2 F L 100 H 16 167/86 99 03/05/21 07:38 03/05/21 11:42 03/05/21 11:42 03/05/21 11:42 03/05/21 11:42 General appearance: Present: no acute distress, well-nourished - EENT Eyes: Present: PERRL, EOM intact ENT: hearing intact, clear oral mucosa, dentition normal - Neck Neck: Present: supple, normal ROM - Respiratory Respiratory effort: normal Respiratory: bilateral: CTA - Cardiovascular Rhythm: regular Heart Sounds: Present: S1 & S2. Absent: gallop, rub - Extremities Extremities: no ischemia, No edema, Full ROM - Abdominal General gastrointestinal: soft, non-tender, non-distended, normal bowel sounds - Integumentary Integumentary: Present: clear, warm, dry - Neurologic Neurologic: other HEART Score - HEART Score Troponin: Troponin T 0.034 ng/mL (0.00-0.029) H 03/05/21 04:39 Results - Labs CBC & Chem 7: 03/05/21 04:39 03/05/21 04:39 Labs: Laboratory Last Values WBC 9.8 K/mm3 (4.5-11.0) 03/05/21 04:39 RBC 3.51 M/mm3 (3.65-5.03) L 03/05/21 04:39 Hgb 9.9 gm/dl (10.1-14.3) L 03/05/21 04:39 Hct 30.0 % (30.3-42.9) L 03/05/21 04:39 MCV 85 fl (79-97) 03/05/21 04:39 MCH 28 pg (28-32) 03/05/21 04:39 MCHC 33 % (30-34) 03/05/21 04:39 RDW 16.8 % (13.2-15.2) H 03/05/21 04:39 Plt Count 185 K/mm3 (140-440) 03/05/21 04:39 Lymph % (Auto) 13.6 % (13.4-35.0) 03/05/21 04:39 Reeves % (Auto) 6.2 % (0.0-7.3) 03/05/21 04:39 Eos % (Auto) 1.9 % (0.0-4.3) 03/05/21 04:39 Baso % (Auto) 0.7 % (0.0-1.8) 03/05/21 04:39 Lymph # (Auto) 1.3 K/mm3 (1.2-5.4) 03/05/21 04:39 Reeves # (Auto) 0.6 K/mm3 (0.0-0.8) 03/05/21 04:39 Eos # (Auto) 0.2 K/mm3 (0.0-0.4) 03/05/21 04:39 Baso # (Auto) 0.1 K/mm3 (0.0-0.1) 03/05/21 04:39 Seg Neutrophils % 77.6 % (40.0-70.0) H 03/05/21 04:39 Seg Neutrophils # 7.6 K/mm3 (1.8-7.7) 03/05/21 04:39 Sodium 137 mmol/L (137-145) 03/05/21 04:39 Potassium 4.3 mmol/L (3.6-5.0) 03/05/21 04:39 Chloride 95.9 mmol/L (98-107) L 03/05/21 04:39 Carbon Dioxide 23 mmol/L (22-30) 03/05/21 04:39 Anion Gap 22 mmol/L 03/05/21 04:39 BUN 46 mg/dL (7-17) H 03/05/21 04:39 Creatinine 7.6 mg/dL (0.6-1.2) H 03/05/21 04:39 Estimated GFR 7 ml/min 03/05/21 04:39 BUN/Creatinine Ratio 6 % 03/05/21 04:39 Glucose 243 mg/dL (65-100) H 03/05/21 04:39 POC Glucose 212 mg/dL (70-105) H 03/05/21 11:39 Calcium 9.1 mg/dL (8.4-10.2) 03/05/21 04:39 Total Bilirubin 0.30 mg/dL (0.1-1.2) 03/05/21 04:39 AST 9 units/L (5-40) 03/05/21 04:39 ALT 11 units/L (7-56) 03/05/21 04:39 Alkaline Phosphatase 238 units/L (35-129) H 03/05/21 04:39 Ammonia 17.0 umol/L (25-60) L 03/05/21 04:39 Troponin T 0.034 ng/mL (0.00-0.029) H 03/05/21 04:39 Total Protein 7.4 g/dL (6.3-8.2) 03/05/21 04:39 Albumin 3.8 g/dL (3.9-5) L 03/05/21 04:39 Albumin/Globulin Ratio 1.1 % 03/05/21 04:39 Triglycerides 363 mg/dL (2-149) H 03/05/21 04:39 Cholesterol 154 mg/dL (50-199) 03/05/21 04:39 LDL Cholesterol Direct 73 mg/dL (50-130) 03/05/21 04:39 HDL Cholesterol 34 mg/dL (40-59) L 03/05/21 04:39 Cholesterol/HDL Ratio 4.52 % 03/05/21 04:39 Active Medications - Current Medications Current Medications: Generic Name Dose Route Start Last Admin Trade Name Freq PRN Reason Stop Dose Admin Acetaminophen 650 mg 03/05/21 06:13 Acetaminophen 650 Mg Rect Supp HI Q6H PRN Pain MILD(1-3)/Fever >100.5/LEE Dextrose 50 ml 03/05/21 06:13 Dextrose 50% In Water (25gm) 50 Ml Syringe IV Q30MIN PRN Hypoglycemia Protocol Heparin Sodium (Porcine) 5,000 unit 03/05/21 14:00 Heparin 5,000 Unit/1 Ml Vial SUB-Q Q8HR LORENE Hydralazine HCl 10 mg 03/05/21 06:43 03/05/21 07:44 Hydralazine 20 Mg/1 Ml Inj IV 10 mg Q4HR PRN Administration Blood Pressure Insulin Human Lispro 0 unit 03/05/21 07:30 03/05/21 11:42 Insulin Lispro 100 Unit/Ml SUB-Q Not Given ACHS [facility] Protocol Lorazepam 2 mg 03/05/21 07:00 Lorazepam 2 Mg/Ml Vial IV Q4H PRN Seizures Magnesium Hydroxide 30 ml 03/05/21 06:13 Magnesium Hydroxide (Mom) Oral Liqd Udc PO Q4H PRN Constipation Morphine Sulfate 2 mg 03/05/21 06:13 Morphine 2 Mg/1 Ml Inj IV Q4H PRN Pain, Moderate (4-6) Morphine Sulfate 4 mg 03/05/21 06:13 Morphine 4 Mg/1 Ml Inj IV Q4H PRN Pain , Severe (7-10) Sodium Chloride 10 ml 03/05/21 10:00 03/05/21 09:52 Sodium Chloride 0.9% 10 Ml Flush Syringe IV 10 ml BID LORENE Administration Sodium Chloride 10 ml 03/05/21 06:13 Sodium Chloride 0.9% 10 Ml Flush Syringe IV PRN PRN LINE FLUSH Nutrition/Malnutrition Assess - Dietary Evaluation Nutrition/Malnutrition Findings: Nutrition Notes Start: 03/05/21 06:45 Freq: Status: Active Protocol: Document 03/05/21 06:45 (Rec: 03/05/21 06:46 [id number]) Nutrition Notes Need for Assessment generated from: MD Order,Education Current Diagnosis CKD (stage V CKD),Diabetes, Hypertension,Stroke Other Pertinent Diagnosis AMS, on HD, seizure disorder Current Diet NPO Subjective/Other Information MD consult for diet education. Pt on hold in ED. Nutrition Intervention Follow-Up By: 03/09/21 Additional Comments F/u: diet education needs
[2021-03-05] MEDS: HEPARIN 5,000 UNIT/1 ML VIAL SUB-Q SCH ×2 (14:15→21:53)
--- NOTE | 2021-03-05 15:16 | Consultation ---
History of Present Illness Consult date: 03/05/21 Reason for Consult: Altered Mental Status, hx of seizure/cva Chief complaint: Altered Mental Status History of present illness: 50 yo female with seizure d/o, hx of cva, htn, dm, esrdx on hd, gerd, who presents to the ED where EMS found her altered with noted severe hypoglycemia for an unknown length of time. She was treated and noted with hyperglycemia. In the ED, noted with continued encephalopathy. RN notes that the best exam is withdrawal to tactile stimuli at extremity otherwise no opening of eyes or verba l output noted. GCS<8 in the ED. Past History Past Medical History: diabetes, dialysis, ESRD, GERD, hypertension, seizures (Last seizure was about 8 months ago secondary to hypoglycemia), stroke (We did receive to her left sided weakness and speech deficit) Past Surgical History: Other (History of right chest permacath, right upper arm AV fistula placement) Social history: no significant social history Family history: no significant family history Medications and Allergies Allergies Allergy/AdvReac Type Severity Reaction Status Date / Time ibuprofen Allergy Rash Verified 06/24/17 17:09 Home Medications Medication Instructions Recorded Confirmed Last Taken Type Gabapentin 600 mg PO TID 08/27/15 10/31/18 08/09/17 History Ferric Citrate (Nf) [Auryxia] 210 mg PO TID 10/31/18 10/31/18 Unknown History Insulin Aspart (Nf) [NovoLOG 15 - 20 units SUB-Q DAILY@0900 10/31/18 10/31/18 Unknown History Flexpen] Insulin Aspart (Nf) [NovoLOG 15 - 20 units SUB-Q DAILY@1530 10/31/18 10/31/18 Unknown History Flexpen] Insulin Glargine,Hum.rec.anlog 15 - 20 units SUB-Q DAILY@2100 PRN 10/31/18 10/31/18 Unknown History [Lantus Solostar] AtorvaSTATin [Lipitor] 40 mg PO DAILY #30 tablet 11/02/18 Unknown Rx amLODIPine 10 mg PO DAILY #30 tablet 11/02/18 Unknown Rx cloNIDine [Catapres] 0.1 mg PO Q8HR #90 tablet 11/02/18 Unknown Rx levETIRAcetam [Keppra TAB] 750 mg PO BID #60 tablet 11/02/18 Unknown Rx oxyCODONE /ACETAMINOPHEN [Percocet 1 tab PO Q6H PRN #8 tablet 11/02/18 Unknown Rx 5/325 mg] Active Meds: Active Medications Acetaminophen (Acetaminophen 650 Mg Rect Supp) 650 mg MS Q6H PRN PRN Reason: Pain MILD(1-3)/Fever >100.5/LEE Dextrose (Dextrose 50% In Water (25gm) 50 Ml Syringe) 50 ml IV Q30MIN PRN; Protocol PRN Reason: Hypoglycemia Heparin Sodium (Porcine) (Heparin 5,000 Unit/1 Ml Vial) 5,000 unit SUB-Q Q8HR LORENE Last Admin: 03/05/21 14:15 Dose: 5,000 unit Documented by: Hydralazine HCl (Hydralazine 20 Mg/1 Ml Inj) 10 mg IV Q4HR PRN PRN Reason: Blood Pressure Last Admin: 03/05/21 07:44 Dose: 10 mg Documented by: Levetiracetam 1,500 mg/ (Dextrose) 115 mls @ 400 mls/hr IV Q12HR LORENE Fosphenytoin Sodium 1,250 mg. (pe/ Sodium Chloride) 125 mls @ 200 mls/hr IV ONCE ONE Stop: 03/05/21 15:36 Insulin Human Lispro (Insulin Lispro 100 Unit/Ml) 0 unit SUB-Q ACHS LORENE; Protocol Last Admin: 03/05/21 11:42 Dose: Not Given Documented by: Lorazepam (Lorazepam 2 Mg/Ml Vial) 2 mg IV Q4H PRN PRN Reason: Seizures Magnesium Hydroxide (Magnesium Hydroxide (Mom) Oral Liqd Udc) 30 ml PO Q4H PRN PRN Reason: Constipation Morphine Sulfate (Morphine 2 Mg/1 Ml Inj) 2 mg IV Q4H PRN PRN Reason: Pain, Moderate (4-6) Morphine Sulfate (Morphine 4 Mg/1 Ml Inj) 4 mg IV Q4H PRN PRN Reason: Pain , Severe (7-10) Phenytoin (Phenytoin 100 Mg/2 Ml Vial) 100 mg IV Q8HR LORENE Sodium Chloride (Sodium Chloride 0.9% 10 Ml Flush Syringe) 10 ml IV BID [facility] Last Admin: 03/05/21 09:52 Dose: 10 ml Documented by: Sodium Chloride (Sodium Chloride 0.9% 10 Ml Flush Syringe) 10 ml IV PRN PRN PRN Reason: LINE FLUSH Review of Systems ROS unobtainable: due to mental status Physical Examination - Vital Signs Vital Signs: Vital Signs Pulse Resp Pulse Ox 84 12 100 03/05/21 02:44 03/05/21 02:44 03/05/21 02:44 - Physical Exam Narrative exam: Gen: nad, well-nourished; Head: normocephalic; +intermitent left facial twitching noted; Eyes: no gaze deviation; no ptosis appreciated; ENT: no vocalization; CVS: warm and well-perfused; Pulm: mild respiratory distress w/ use of abdominal muscles; GI: non-distended, protuberant; Ext: no cyanosis or edema at distal extremities; Skin: no acute rash appreciated at distal extremities; Heme: no bruising appreciated at distal extremities; Neuro: obtunded/comatose, intubated, CN 2 - sluggish reactive pupils, CN 3, 4, 6 - oculocephalic absent, CN 5/7 - corneal reflex intact, CN 9/10 - swallowing absent, CN 11/12 - pt cannot cooperate secondary to LOC; Motor/Sensory - at least 2-/5 at all exts to tactile stimuli; Cerebellar/Gait - pt cannot cooperate secondary to LOC; NIHSS >25 Results - Laboratory Findings CBC and BMP: 03/05/21 04:39 03/05/21 04:39 Abnormal Lab Findings: Abnormal Labs 03/05/21 03/05/21 03/05/21 02:34 04:14 04:39 RBC 3.51 L Hgb 9.9 L Hct 30.0 L RDW 16.8 H Seg Neutrophils % 77.6 H Chloride BUN Creatinine Glucose POC Glucose 167 H 198 H Alkaline Phosphatase Ammonia Troponin T Albumin Triglycerides HDL Cholesterol 03/05/21 03/05/21 03/05/21 04:39 04:39 07:30 RBC Hgb Hct RDW Seg Neutrophils % Chloride 95.9 L BUN 46 H Creatinine 7.6 H Glucose 243 H POC Glucose 212 H Alkaline Phosphatase 238 H Ammonia 17.0 L Troponin T 0.034 H Albumin 3.8 L Triglycerides 363 H HDL Cholesterol 34 L 03/05/21 11:39 RBC Hgb Hct RDW Seg Neutrophils % Chloride BUN Creatinine Glucose POC Glucose 212 H Alkaline Phosphatase Ammonia Troponin T Albumin Triglycerides HDL Cholesterol Assessment and Plan 50 yo female with seizure d/o, hx of cva, htn, dm, esrdx on hd, gerd, who presents to the ED where EMS found her altered with noted severe hypoglycemia for an unknown length of time. She was treated and noted with hyperglycemia. In the ED, noted with continued encephalopathy. RN notes that the best exam is withdrawal to tactile stimuli at extremity otherwise no opening of eyes or verbal output noted. GCS<8 in the ED. 1. Seizure d/o - stat EEG (if available; EMR will not let me order stuides/imaging); fosphenytoin 1250 mg IV x 1 dose stat; keppra 1500 mg iv q12, 1st dose stat; dilantin 100 mg iv q8; mri brain w/ contrast when clinically stable. 2. Hypoxic / Hpglcemia Ecephalopathy - mri brain w/o contrast. 3. Metabolic Encephalopathy - confirm ammonia, esr, crp, b12, tsh, ua, uds, infection/infammation workup. 4. Hx of cva - continue home regimen of antiplatelet/statin therapy. 5. DM - maintain euglycemia. 6. HTN - permissive hypertension until MR Brain results are availabe and confirm no evidence of ischemia. Montrell Villanueva MD Neurology [id number]
[2021-03-05] MEDS ORDERED: [UNRECOGNIZED DRUG - OTHER] IV NR (15:30)
[2021-03-05] MEDS ORDERED: FOSPHENYTOIN IV NR (15:30)
[2021-03-05] MEDS ORDERED: SODIUM CHLORIDE IV NR (15:30)
[2021-03-05] MEDS: levETIRAcetam 1,500 MG in DEXTROSE 5% IN WATER 100 ML IV SCH (15:31)
[2021-03-05] MEDS ORDERED: ETOMIDATE 20 MG/10 ML INJ IV ONE (16:00)
[2021-03-05] MEDS ORDERED: SUCCINYLCHOLINE CHLORIDE 200 MG/10 ML INJ MDV ONE (16:00)
[2021-03-05] MEDS ORDERED: propofoL 200 MG/20 ML VIAL IV ONE (16:02)
[2021-03-05] MEDS ORDERED: KETAMINE/STERILE WATER 50 MG/ML SYRINGE ONE (16:02)
[2021-03-05] MEDS ORDERED: MIDAZOLAM 2 MG/2 ML INJ ONE (16:02)
[2021-03-05] MEDS: PHENYTOIN 100 MG/2 ML VIAL IV SCH (21:53)
[2021-03-06] MEDS: hydrALAZINE 20 MG/1 ML INJ IV PRN (03:21)
[2021-03-06] MEDS: levETIRAcetam 1,500 MG in DEXTROSE 5% IN WATER 100 ML IV SCH ×2 (04:42→18:03)
[2021-03-06] MEDS: PHENYTOIN 100 MG/2 ML VIAL IV SCH ×2 (06:04→15:26)
[2021-03-06] MEDS: HEPARIN 5,000 UNIT/1 ML VIAL SUB-Q SCH ×2 (06:04→14:38)
[2021-03-06 06:18] LABS: Basophils # (Auto) 0.1 K/mm3 (0.0-0.1); Basophils % (Auto) 0.3 % (0.0-1.8); Eosinophils % (Auto) 0.2 % (0.0-4.3); Hematocrit 34.7 % (30.3-42.9); Lymphocytes # (Auto) 0.9 K/mm3 (1.2-5.4); Lymphocytes % (Auto) 6.3 % (13.4-35.0); Mean Corpuscular HGB Conc 32 % (30-34); Mean Corpuscular Volume 86 fl (79-97); Monocytes # (Auto) 0.9 K/mm3 (0.0-0.8); Platelet Count 216 K/mm3 (140-440); Red Blood Count 4.06 M/mm3 (3.65-5.03)
[2021-03-06 06:29] LABS: INR 1.08 (0.87-1.13)
[2021-03-06 06:33] LABS: Hemolysis Index 95
[2021-03-06 06:35] LABS: BUN/Creatinine Ratio TNR; Blood Urea Nitrogen TNR mg/dL (7-17)
[2021-03-06 06:36] LABS: Calcium TNR mg/dL (8.4-10.2)
[2021-03-06] MEDS: INSULIN LISPRO 100 UNIT/ML SUB-Q SCH ×3 (08:11→17:39)
[2021-03-06] MEDS ORDERED: SODIUM CHLORIDE 0.9% 100 ML IV PRN (08:30)
--- NOTE | 2021-03-06 08:33 | Consultation ---
History of Present Illness - Reason for Consult Consult date: 03/06/21 end stage renal disease Requesting physician: RAUL LINCOLN - History of Present Illness 41-year-old lady with well known to me with a history of diabetes mellitus, hypertension end-stage renal disease with prior cerebrovascular accident. Patient dialyzesThrough a right upper extremity AV fistula for 3 hours on a Tuesday, and Tuesday schedule at [facility]. Her last dialysis was on Tuesday, 03 March. It was uneventful. Patient was brought to the hospital on account of unresponsiveness. She was found unresponsive in bed by her family. She had minimal response only to pain in the ER. Patient had episode of hypoglycemia of unknown duration early on the day of presentation. It was treated and by time of presentation she was hyperglycemic. Blood pressure was 188/93 mmHg on presentation. Patient has been seen by neurologist who ordered a STAT EEG and loaded her with Keppra and fosphenytoin. An MRI of the brain was also requested along with labs. I am consulted to assist with managing her renal failure. Potassium is normal at 4.3 mmol/L and patient is not dyspneic. Repeat labs this morning show potassium high at 5.8 mmol/L, bicarbonate low at 16 mmol/L and sodium low at 131 mmol/L. Past History Past Medical History: diabetes, dialysis, ESRD, GERD, hypertension, seizures (Last seizure was about 8 months ago secondary to hypoglycemia), stroke (We did receive to her left sided weakness and speech deficit) Past Surgical History: Other (History of right chest permacath, right upper arm AV fistula placement) Social history: no significant social history Family history: no significant family history Medications and Allergies Allergies Allergy/AdvReac Type Severity Reaction Status Date / Time ibuprofen Allergy Rash Verified 06/24/17 17:09 Home Medications Medication Instructions Recorded Confirmed Last Taken Type Gabapentin 600 mg PO TID 08/27/15 10/31/18 08/09/17 History Ferric Citrate (Nf) [Auryxia] 210 mg PO TID 10/31/18 10/31/18 Unknown History Insulin Aspart (Nf) [NovoLOG 15 - 20 units SUB-Q DAILY@0900 10/31/18 10/31/18 Unknown History Flexpen] Insulin Aspart (Nf) [NovoLOG 15 - 20 units SUB-Q DAILY@1530 10/31/18 10/31/18 Unknown History Flexpen] Insulin Glargine,Hum.rec.anlog 15 - 20 units SUB-Q DAILY@2100 PRN 10/31/18 10/31/18 Unknown History [Lantus Solostar] AtorvaSTATin [Lipitor] 40 mg PO DAILY #30 tablet 11/02/18 Unknown Rx amLODIPine 10 mg PO DAILY #30 tablet 11/02/18 Unknown Rx cloNIDine [Catapres] 0.1 mg PO Q8HR #90 tablet 11/02/18 Unknown Rx levETIRAcetam [Keppra TAB] 750 mg PO BID #60 tablet 11/02/18 Unknown Rx oxyCODONE /ACETAMINOPHEN [Percocet 1 tab PO Q6H PRN #8 tablet 11/02/18 Unknown Rx 5/325 mg] Active Meds: Active Medications Acetaminophen (Acetaminophen 650 Mg Rect Supp) 650 mg PA Q6H PRN PRN Reason: Pain MILD(1-3)/Fever >100.5/LEE Dextrose (Dextrose 50% In Water (25gm) 50 Ml Syringe) 50 ml IV Q30MIN PRN; Protocol PRN Reason: Hypoglycemia Heparin Sodium (Porcine) (Heparin 5,000 Unit/1 Ml Vial) 5,000 unit SUB-Q Q8HR LORENE Last Admin: 03/06/21 06:04 Dose: 5,000 unit Documented by: Hydralazine HCl (Hydralazine 20 Mg/1 Ml Inj) 10 mg IV Q4HR PRN PRN Reason: Blood Pressure Last Admin: 03/06/21 03:21 Dose: 10 mg Documented by: Levetiracetam 1,500 mg/ (Dextrose) 115 mls @ 400 mls/hr IV Q12H LORENE Last Admin: 03/06/21 04:42 Dose: 400 mls/hr Documented by: Sodium Chloride (Nacl 0.9%) 100 mls @ 999 mls/hr IV DESIREE PRN PRN Reason: Hypotension Insulin Human Lispro (Insulin Lispro 100 Unit/Ml) 0 unit SUB-Q ACHS LORENE; P rotocol Last Admin: 03/06/21 08:11 Dose: 6 unit Documented by: Lorazepam (Lorazepam 2 Mg/Ml Vial) 2 mg IV Q4H PRN PRN Reason: Seizures Magnesium Hydroxide (Magnesium Hydroxide (Mom) Oral Liqd Udc) 30 ml PO Q4H PRN PRN Reason: Constipation Morphine Sulfate (Morphine 2 Mg/1 Ml Inj) 2 mg IV Q4H PRN PRN Reason: Pain, Moderate (4-6) Morphine Sulfate (Morphine 4 Mg/1 Ml Inj) 4 mg IV Q4H PRN PRN Reason: Pain , Severe (7-10) Phenytoin (Phenytoin 100 Mg/2 Ml Vial) 100 mg IV Q8HR ON LICENSE OF [facility] Last Admin: 03/06/21 06:04 Dose: 100 mg Documented by: Sodium Chloride (Sodium Chloride 0.9% 10 Ml Flush Syringe) 10 ml IV BID ON LICENSE OF [facility] Last Admin: 03/05/21 21:53 Dose: 10 ml Documented by: Sodium Chloride (Sodium Chloride 0.9% 10 Ml Flush Syringe) 10 ml IV PRN PRN PRN Reason: LINE FLUSH Review of Systems ROS unobtainable: due to mental status Exam - Vital Signs Vital signs: Vital Signs Pulse Resp Pulse Ox 84 12 100 03/05/21 02:44 03/05/21 02:44 03/05/21 02:44 - Physical Exam Narrative exam: Middle-aged Afro-Algerian female lying in bedin no acute distress HEENT: Normocephalic atraumatic, pupils equal round reactive to light Normal oropharynx, Neck: Supple, no venous distention, no goiter CVS: S1S2 RRR No murmur, No rub or gallop Lungs: Clear to auscultation, no use of accessory muscles of respiration Abdomen: Full, soft, nontender, no organomegaly no bruit, bowel sounds are present Extremities: No edema, no cyanosis or clubbing Urinary: Deferred Musculo-skeletal: No joint deformities or swelling Neuro: Responsive, twitching right side of her lips Results - Lab Results 03/06/21 05:07 03/06/21 08:12 Most recent lab results ABG pH 7.431 (7.320-7.450) 03/05/21 16:15 ABG O2 Saturation 94.6 (0-100) 03/05/21 16:15 Calcium TNR 03/06/21 05:07 Assessment and Plan - Patient Problems (1) Hyponatremia Current Visit: Yes Status: Acute Plan to address problem: Probably volume related. Fluid removal on dialysis and then follow-up sodium. (2) Metabolic acidosis Current Visit: Yes Status: Acute Plan to address problem: Uremic acidosis. Hemodialysis today and then follow bicarbonate in the morning (3) ESRD (end stage renal disease) on dialysis Current Visit: Yes Status: Chronic Plan to address problem: Hemodialysis today and possibly again tomorrow if needed. Go back to in a regular schedule of Tuesday, and Tuesday dialysis next week (4) Accelerated hypertension Current Visit: No Status: Acute Plan to address problem: Blood pressure elevated on presentation now improving. Follow blood pressure on current medications (5) Hyperkalemia Current Visit: No Status: Acute Plan to address problem: Hemodialysis today on a low potassium bath and then follow-up potassium in the morning. (6) Seizure disorder Current Visit: No Status: Acute Plan to address problem: Patient appears to be in status epilepticus. EEG and antiepileptic medications been ordered by neurologist. Continue management by neurologist. 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
[2021-03-06] MEDS ORDERED: EPOETIN ALFA-EPBX 10,000 UNIT/1 ML VIAL IV PRN (09:00)
[2021-03-06 09:23] LABS: Calcium 9.4 mg/dL (8.4-10.2)
--- NOTE | 2021-03-06 09:54 | Magnetic Resonance Report ---
MRI BRAIN 03/06/2021 INDICATION / CLINICAL INFORMATION: ALTERED MENTAL STATUS R/O CVA. TECHNIQUE: Multiplanar, multisequence MR images of the brain were obtained. COMPARISON: MRI brain 10/31/2018 FINDINGS: BRAIN / INTRACRANIAL CONTENTS: Unenhanced MR images of the brain were obtained. There is no evidence of acute abnormality. Ventricles and sulci are prominent in size, consistent with prominent diffuse cerebral atrophy, more pronounced than is typically seen in a patient of this age. Extensive chronic white matter T2 weighte d hyperintensity is present in the periventricular and deep white matter of cerebral hemispheres. The re is evidence of chronic lacunar changes in the basal ganglia and brainstem. There is no evidence of acute ischemic injury, hemorrhage, or mass. There are no abnormal extra-axial fluid collections. EXTRACRANIAL: Unremarkable CRANIOCERVICAL JUNCTION: No significant abnormality. VASCULAR FLOW-VOIDS: No significant abnormality. IMPRESSION: No acute abnormality. Extensive chronic white matter signal change and evidence of diffuse lacunar change. No significant c hange when compared to 10/31/2018. Prominent diffuse cerebral atrophy. Signer Name: Ap Luong MD Signed: 03/06/2021 9:50 AM Workstation Name: [id number]
--- NOTE | 2021-03-06 10:07 | Progress Note ---
Assessment and Plan Assessment and plan: 50-year-old female with known history of end-stage renal disease on dialysis, history of seizure disorder, CVA, diabetes mellitus and hypertension brought into the emergency room today for changes in mental status. Patient unable to give any history at this time most of the history was gotten from the ER staff. According to EMS patient was said to be hypoglycemic earlier in the day and later became hyperglycemic Acute encephalopathy. ESRD on HD Accelerated hypertension Diabetes mellitus type 2 Seizure disorder. Anemia of chronic disease. Elevated troponin 03/05/2021. Await neurology evaluation. CT head reveals no acute abnormality. Await MRI of the brain. Check ammonia and TSH levels. 03/06/2021. EEG ordered stat. Neurology ordered fosphenytoin x1. Continue Keppra and Dilantin per neurology recommendations. Follow-up MRI brain when patient stable. Follow-up ammonia, esr, crp, b12, tsh, uds. Patient with leukocytosis today, WBC 14 8. Rule out infectious etiology. Unable to check urinalysis because patient is anuric. Patient remains afebrile. Start empiric antibiotics of Levaquin. MRI brain showed no acute findings. However, neurology recommends MRI brain with contrast. Therefore, I coordinated with Dr. Lopez regards to hemodialysis and ordered test. History Interval history: Patient remains confused and somnolent. Hospitalist Physical - Constitutional Vitals: Temp Pulse Resp BP Pulse Ox 97.6 F 96 H 16 141/93 96 03/06/21 08:00 03/06/21 08:00 03/06/21 08:00 03/06/21 08:00 03/06/21 08:00 General appearance: Present: no acute distress, well-nourished - EENT Eyes: Present: PERRL, EOM intact ENT: hearing intact, clear oral mucosa, dentition normal - Neck Neck: Present: supple, normal ROM - Respiratory Respiratory effort: normal Respiratory: bilateral: CTA - Cardiovascular Rhythm: regular Heart Sounds: Present: S1 & S2. Absent: gallop, rub - Extremities Extremities: no ischemia, No edema, Full ROM - Abdominal General gastrointestinal: soft, non-tender, non-distended, normal bowel sounds - Integumentary Integumentary: Present: clear, warm, dry - Neurologic Neurologic: CNII-XII intact, moves all extremities HEART Score - HEART Score Troponin: Troponin T 0.032 ng/mL (0.00-0.029) H 03/05/21 15:46 Results - Labs CBC & Chem 7: 03/06/21 05:07 03/06/21 08:12 Labs: Laboratory Last Values WBC 14.8 K/mm3 (4.5-11.0) H 03/06/21 05:07 RBC 4.06 M/mm3 (3.65-5.03) 03/06/21 05:07 Hgb 11.0 gm/dl (10.1-14.3) 03/06/21 05:07 Hct 34.7 % (30.3-42.9) 03/06/21 05:07 MCV 86 fl (79-97) 03/06/21 05:07 MCH 27 pg (28-32) L 03/06/21 05:07 MCHC 32 % (30-34) 03/06/21 05:07 RDW 17.0 % (13.2-15.2) H 03/06/21 05:07 Plt Count 216 K/mm3 (140-440) 03/06/21 05:07 Lymph % (Auto) 6.3 % (13.4-35.0) L 03/06/21 05:07 [place] % (Auto) 6.0 % (0.0-7.3) 03/06/21 05:07 Eos % (Auto) 0.2 % (0.0-4.3) 03/06/21 05:07 Baso % (Auto) 0.3 % (0.0-1.8) 03/06/21 05:07 Lymph # (Auto) 0.9 K/mm3 (1.2-5.4) L 03/06/21 05:07 [place] # (Auto) 0.9 K/mm3 (0.0-0.8) H 03/06/21 05:07 Eos # (Auto) 0.0 K/mm3 (0.0-0.4) 03/06/21 05:07 Baso # (Auto) 0.1 K/mm3 (0.0-0.1) 03/06/21 05:07 Seg Neutrophils % 87.2 % (40.0-70.0) H 03/06/21 05:07 Seg Neutrophils # 12.9 K/mm3 (1.8-7.7) H 03/06/21 05:07 PT 14.5 Sec. (12.2-14.9) 03/06/21 05:07 INR 1.08 (0.87-1.13) 03/06/21 05:07 ABG pH 7.431 (7.320-7.450) 03/05/21 16:15 POC ABG pCO2 37.1 mmHg (32.0-48.0) 03/05/21 16:15 POC ABG pO2 80.0 mmHg (83-108) L 03/05/21 16:15 POC ABG HCO3 24.1 03/05/21 16:15 ABG O2 Saturation 94.6 (0-100) 03/05/21 16:15 POC ABG Base Excess 0 03/05/21 16:15 ABG Hemoglobin 11.0 (12.0-17.5) L 03/05/21 16:15 ABG Oxyhemoglobin 93.3 (94-98) L 03/05/21 16:15 ABG Methemoglobin 0.3 (0.0-1.5) 03/05/21 16:15 ABG Sodium 131.5 mmol/L (136.0-145.0) L 03/05/21 16:15 ABG Potassium 5.1 mmol/L (3.40-4.50) H 03/05/21 16:15 ABG Chloride 95.0 mmol/L (98-107) L 03/05/21 16:15 ABG Glucose 302 mg/dL (65-95) H 03/05/21 16:15 Carboxyhemoglobin 1.1 (0.5-1.5) 03/05/21 16:15 FiO2 % 21.0 03/05/21 16:15 Sodium 131 mmol/L (137-145) L 03/06/21 08:12 Potassium 5.8 mmol/L (3.6-5.0) H D 03/06/21 08:12 Chloride 90.6 mmol/L (98-107) L 03/06/21 08:12 Carbon Dioxide 16 mmol/L (22-30) L D 03/06/21 08:12 Anion Gap 30 mmol/L 03/06/21 08:12 BUN 65 mg/dL (7-17) H 03/06/21 08:12 Creatinine 9.0 mg/dL (0.6-1.2) H 03/06/21 08:12 Estimated GFR 6 ml/min 03/06/21 08:12 BUN/Creatinine Ratio 7 % 03/06/21 08:12 Glucose 388 mg/dL (65-100) H 03/06/21 08:12 POC Glucose 321 mg/dL (70-105) H 03/06/21 08:07 Calcium 9.4 mg/dL (8.4-10.2) 03/06/21 08:12 Total Bilirubin 0.30 mg/dL (0.1-1.2) 03/05/21 04:39 AST 9 units/L (5-40) 03/05/21 04:39 ALT 11 units/L (7-56) 03/05/21 04:39 Alkaline Phosphatase 238 units/L (35-129) H 03/05/21 04:39 Ammonia 34.0 umol/L (25-60) 03/05/21 15:46 Troponin T 0.032 ng/mL (0.00-0.029) H 03/05/21 15:46 Total Protein 7.4 g/dL (6.3-8.2) 03/05/21 04:39 Albumin 3.8 g/dL (3.9-5) L 03/05/21 04:39 Albumin/Globulin Ratio 1.1 % 03/05/21 04:39 Triglycerides 363 mg/dL (2-149) H 03/05/21 04:39 Cholesterol 154 mg/dL (50-199) 03/05/21 04:39 LDL Cholesterol Direct 73 mg/dL (50-130) 03/05/21 04:39 HDL Cholesterol 34 mg/dL (40-59) L 03/05/21 04:39 Cholesterol/HDL Ratio 4.52 % 03/05/21 04:39 TSH 2.260 mlU/mL (0.270-4.200) 03/05/21 15:46 Arterial Blood Glucose 302 mg/dL (65-95) H 03/05/21 16:15 Arterial Blood Ionized Calcium 4.1 mg/dL (4.6-5.3) L 03/05/21 16:15 Phenytoin 15.1 ug/mL (10.0-20.0) 03/06/21 05:07 Active Medications - Current Medications Current Medications: Generic Name Dose Route Start Last Admin Trade Name Freq PRN Reason Stop Dose Admin Acetaminophen 650 mg 03/05/21 06:13 Acetaminophen 650 Mg Rect Supp [place] Q6H PRN Pain MILD(1-3)/Fever >100.5/LEE Dextrose 50 ml 03/05/21 06:13 Dextrose 50% In Water (25gm) 50 Ml Syringe IV Q30MIN PRN Hypoglycemia Protocol Heparin Sodium (Porcine) 5,000 unit 03/05/21 14:00 03/06/21 06:04 Heparin 5,000 Unit/1 Ml Vial SUB-Q 5,000 unit Q8HR LORENE Administration Hydralazine HCl 10 mg 03/05/21 06:43 03/06/21 03:21 Hydralazine 20 Mg/1 Ml Inj IV 10 mg Q4HR PRN Administration Blood Pressure Levetiracetam 1,500 mg/ 115 mls @ 400 mls/hr 03/05/21 16:00 03/06/21 04:42 Dextrose IV 400 mls/hr Q12H LORENE Administration Sodium Chloride 100 mls @ 999 mls/hr 03/06/21 08:30 Nacl 0.9% IV DESIREE PRN Hypotension Insulin Human Lispro 0 unit 03/05/21 07:30 03/06/21 08:11 Insulin Lispro 100 Unit/Ml SUB-Q 6 unit ACHS LORENE Administration Protocol Lorazepam 2 mg 03/05/21 07:00 Lorazepam 2 Mg/Ml Vial IV Q4H PRN Seizures Magnesium Hydroxide 30 ml 03/05/21 06:13 Magnesium Hydroxide (Mom) Oral Liqd Udc PO Q4H PRN Constipation Morphine Sulfate 2 mg 03/05/21 06:13 Morphine 2 Mg/1 Ml Inj IV Q4H PRN Pain, Moderate (4-6) Morphine Sulfate 4 mg 03/05/21 06:13 Morphine 4 Mg/1 Ml Inj IV Q4H PRN Pain , Severe (7-10) Phenytoin 100 mg 03/05/21 22:00 03/06/21 06:04 Phenytoin 100 Mg/2 Ml Vial IV 100 mg Q8HR LORENE Administration Sodium Chloride 10 ml 03/05/21 10:00 03/05/21 21:53 Sodium Chloride 0.9% 10 Ml Flush Syringe IV 10 ml BID LORENE Administration Sodium Chloride 10 ml 03/05/21 06:13 Sodium Chloride 0.9% 10 Ml Flush Syringe IV PRN PRN LINE FLUSH Nutrition/Malnutrition Assess - Dietary Evaluation Nutrition/Malnutrition Findings: Nutrition Notes Start: 03/05/21 06:45 Freq: Status: Active Protocol: Document 03/05/21 06:45 MK (Rec: 03/05/21 06:46 MK [id number]) Nutrition Notes Need for Assessment generated from: MD Order,Education Current Diagnosis CKD (stage V CKD),Diabetes, Hypertension,Stroke Other Pertinent Diagnosis AMS, on HD, seizure disorder Current Diet NPO Subjective/Other Information MD consult for diet education. Pt on hold in ED. Nutrition Intervention Follow-Up By: 03/09/21 Additional Comments F/u: diet education needs
[2021-03-06 11:18] LABS: Hepatitis C Virus Antibody Non-Reactive (NonReactive)
[2021-03-06 11:31] LABS: Hepatitis B Surface Antigen Nonreactive (Negative)
--- NOTE | 2021-03-06 13:27 | Electrocardiograph Report ---
[facility] Test Date: 2021-03-05 Test Time: 02:49:07 Pat Name: LESTER LOCKE Department: Room: [place] [address] Gender: F Ball Sorter: CHANDRIKA : 1970 Requested By: PABLO CANTOR III Order Number: [id number] Reading MD: Kalani Edwards Measurements Intervals [place] Rate: 84 P: 69 RI: 147 QRS: 40 QRSD: 76 T: 79 QT: 432 QTc: 512 Interpretive Statements Sinus rhythm Probable anteroseptal infarct, recent Prolonged QT interval No previous ECG available for comparison Electronically Signed On 03-06-2021 13:26:51 EDT by Kalani Edwards
[2021-03-07] MEDS: PHENYTOIN 100 MG/2 ML VIAL IV SCH ×4 (00:39→23:19)
[2021-03-07] MEDS: HEPARIN 5,000 UNIT/1 ML VIAL SUB-Q SCH ×4 (00:39→23:19)
[2021-03-07] MEDS: INSULIN LISPRO 100 UNIT/ML SUB-Q SCH ×5 (01:24→23:18)
[2021-03-07] MEDS: levETIRAcetam 1,500 MG in DEXTROSE 5% IN WATER 100 ML IV SCH ×2 (06:54→17:10)
--- NOTE | 2021-03-07 11:19 | Progress Note ---
Assessment and Plan - Patient Problems (1) Hyponatremia Current Visit: Yes Status: Acute Plan to address problem: Probably volume related. Fluid removal on dialysis and then follow-up sodium (2) Metabolic acidosis Current Visit: Yes Status: Acute Plan to address problem: Uremic acidosis, to be corrected with HD (3) ESRD (end stage renal disease) on dialysis Current Visit: Yes Status: Chronic Plan to address problem: Cont HD on MWF schedule . (4) Hypertensive chronic kidney disease with stage 5 chronic kidney disease or end stage renal disease Current Visit: No Status: Chronic Plan to address problem: Blood pressure elevated on presentation now improving. Follow blood pressure on current medications (5) Hyperkalemia Current Visit: No Status: Acute Plan to address problem: s/p hemodialysis on a low potassium bath, follow-up potassium in the morning. (6) Seizure disorder Current Visit: No Status: Acute Plan to address problem: Patient appears to be in status epilepticus. EEG and antiepileptic medications been ordered by neurologist. Continue management by neurologist. 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 Objective - Vital Signs Vital signs: Vital Signs - 12hr 03/07/21 03/07/21 03/07/21 07:00 08:26 08:29 Temperature Pulse Rate 118 H Respiratory 24 24 Rate Blood Pressure 175/89 [Left] O2 Sat by Pulse 100 99 100 Oximetry 03/07/21 03/07/21 03/07/21 08:32 09:34 11:02 Temperature 98.4 F Pulse Rate 117 H 118 H 118 H Respiratory 24 24 19 Rate Blood Pressure 179/99 171/85 158/62 [Left] O2 Sat by Pulse 100 98 100 Oximetry - General Appearance General appearance: well-developed, well-nourished EENT: ATNC, PERRL, mucous membranes moist Neck: no JVD Respiratory: Present: Decreased Breath Sounds Cardiology: regular, S1S2 Gastrointestinal: normoactive bowel sounds Integumentary: no rash Neurologic: no focal deficit - Lab 03/06/21 05:07 03/06/21 08:12 Most recent lab results ABG pH 7.431 (7.320-7.450) 03/05/21 16:15 ABG O2 Saturation 94.6 (0-100) 03/05/21 16:15 Calcium 9.4 mg/dL (8.4-10.2) 03/06/21 08:12 Medications & Allergies - Medications Allergies/Adverse Reactions: Allergies ibuprofen Allergy (Verified 06/24/17 17:09) Rash Home Medications: Home Medications Medication Instructions Recorded Confirmed Last Taken Type Gabapentin 600 mg PO TID 08/27/15 10/31/18 08/09/17 History Ferric Citrate (Nf) [Auryxia] 210 mg PO TID 10/31/18 10/31/18 Unknown History Insulin Aspart (Nf) [NovoLOG 15 - 20 units SUB-Q DAILY@0900 10/31/18 10/31/18 Unknown History Flexpen] Insulin Aspart (Nf) [NovoLOG 15 - 20 units SUB-Q DAILY@1530 10/31/18 10/31/18 U nknown History Flexpen] Insulin Glargine,Hum.rec.anlog 15 - 20 units SUB-Q DAILY@2100 PRN 10/31/18 10/31/18 Unknown History [Lantus Solostar] AtorvaSTATin [Lipitor] 40 mg PO DAILY #30 tablet 11/02/18 Unknown Rx amLODIPine 10 mg PO DAILY #30 tablet 11/02/18 Unknown Rx cloNIDine [Catapres] 0.1 mg PO Q8HR #90 tablet 11/02/18 Unknown Rx levETIRAcetam [Keppra TAB] 750 mg PO BID #60 tablet 11/02/18 Unknown Rx oxyCODONE /ACETAMINOPHEN [Percocet 1 tab PO Q6H PRN #8 tablet 11/02/18 Unknown Rx 5/325 mg] Active Medications: Generic Name Dose Route Start Last Admin Trade Name Freq PRN Reason Stop Dose Admin Acetaminophen 650 mg 03/05/21 06:13 Acetaminophen 650 Mg Rect Supp [place] Q6H PRN Pain MILD(1-3)/Fever >100.5/LEE Dextrose 50 ml 03/05/21 06:13 Dextrose 50% In Water (25gm) 50 Ml Syringe IV Q30MIN PRN Hypoglycemia Protocol Heparin Sodium (Porcine) 5,000 unit 03/05/21 14:00 03/07/21 06:56 Heparin 5,000 Unit/1 Ml Vial SUB-Q 5,000 unit Q8HR LORENE Administration Hydralazine HCl 10 mg 03/05/21 06:43 03/06/21 03:21 Hydralazine 20 Mg/1 Ml Inj IV 10 mg Q4HR PRN Administration Blood Pressure Levetiracetam 1,500 mg/ 115 mls @ 400 mls/hr 03/05/21 16:00 03/07/21 06:54 Dextrose IV 400 mls/hr Q12H LORENE Administration Sodium Chloride 100 mls @ 999 mls/hr 03/06/21 08:30 Nacl 0.9% IV DESIREE PRN Hypotension Levofloxacin/Dextrose 500 mg in 100 mls @ 100 mls/hr 03/09/21 12:00 Levaquin 500mg/100ml IV Q48H LORENE Protocol Insulin Human Lispro 0 unit 03/05/21 07:30 03/07/21 08:35 Insulin Lispro 100 Unit/Ml SUB-Q 3 unit ACHS LORENE Administration Protocol Lorazepam 2 mg 03/05/21 07:00 Lorazepam 2 Mg/Ml Vial IV Q4H PRN Seizures Magnesium Hydroxide 30 ml 03/05/21 06:13 Magnesium Hydroxide (Mom) Oral Liqd Udc PO Q4H PRN Constipation Morphine Sulfate 2 mg 03/05/21 06:13 Morphine 2 Mg/1 Ml Inj IV Q4H PRN Pain, Moderate (4-6) Morphine Sulfate 4 mg 03/05/21 06:13 Morphine 4 Mg/1 Ml Inj IV Q4H PRN Pain , Severe (7-10) Phenytoin 100 mg 03/05/21 22:00 03/07/21 10:18 Phenytoin 100 Mg/2 Ml Vial IV 100 mg Q8HR LORENE Administration Sodium Chloride 10 ml 03/05/21 10:00 03/07/21 09:30 Sodium Chloride 0.9% 10 Ml Flush Syringe IV Not Given BID LORENE Sodium Chloride 10 ml 03/05/21 06:13 Sodium Chloride 0.9% 10 Ml Flush Syringe IV PRN PRN LINE FLUSH
--- NOTE | 2021-03-07 13:03 | Progress Note ---
Assessment and Plan Critical care The high probability OF a clinically significant sudden or life-threatening deterioration of the cardiorespiratory system and endocrine system required my full and direct attention, intervention and postoperative management. The aggregate critical care time was 40 minutes. The time is in addition to time spent performing reported procedures but includes the followin: Data review and interpretation 2: Patient assessment and monitoring of vital signs 3: Documentation 4:: Medication orders and management - Patient Problems (1) Acute encephalopathy Current Visit: Yes Status: Acute Plan to address problem: Possibly secondary to uremia MRI negative MRI with contrast requested by neurology Patient on antiseizure medication (2) End stage renal disease on dialysis Current Visit: Yes Status: Acute Plan to address problem: Continue hemodialysis Nephrology consult appreciated (3) Hyperkalemia Current Visit: Yes Status: Acute Plan to address problem: Being treated aggressively (4) NSTEMI (non-ST elevated myocardial infarction) Current Visit: Yes Status: Acute Plan to address problem: Troponin leak (5) HTN (hypertension) Current Visit: Yes Status: Chronic Qualifiers: Hypertension type: renovascular hypertension Qualified Code(s): I15.0 - Renovascular hypertension Plan to address problem: Patient initiated on Catapres patch and IV hydralazine 10 mg every 3 hours as needed (6) T2DM (type 2 diabetes mellitus) Current Visit: Yes Status: Chronic Qualifiers: Diabetes mellitus snf insulin use: unspecified snf insulin use status Plan to address problem: Coverage for now (7) DVT prophylaxis Current Visit: Yes Status: Acute Plan to address problem: On anticoagulation and GI prophylaxis Subjective Date of service: 03/07/21 Principal diagnosis: ESRD Interval history: 50-year-old female with known history of end-stage renal disease on dialysis, history of seizure disorder, CVA, diabetes mellitus and hypertension brought into the emergency room today for changes in mental status. Patient unable to give any history at this time most of the history was gotten from the ER staff. According to EMS patient was said to be hypoglycemic earlier in the day and later became hyperglycemic now. Last well-known time is unknown. Patient was said to have been found unresponsive in bed by the family. Blood pressure was quite elevated upon arrival in the emergency room with systolic in the 200s and diastolic in the low 100s. Work-up in the emergency room today reveals a hemoglobin of 9.9 and hematocrit of 30. BUN was 46 and creatinine of 7.6. Troponin was 0.034. Checks x-ray reveals:Mild increased pulmonary vascularity No pneumothorax. CT scan of the head reveals no acute intracranial abnormality. Patient is being admitted with altered mental status with unclear etiology. 03/05/2021. Await neurology evaluation. CT head reveals no acute abnormality. Await MRI of the brain. Check ammonia and TSH levels. 03/06/2021. EEG ordered stat. Neurology ordered fosphenytoin x1. Continue Keppra and Dilantin per neurology recommendations. Follow-up MRI brain when patient stable. Follow-up ammonia, esr, crp, b12, tsh, uds. Patient with leukocytosis today, WBC 14 8. Rule out infectious etiology. Unable to check urinalysis because patient is anuric. Patient remains afebrile. Start empiric antibiotics o f Levaquin. MRI brain showed no acute findings. However, neurology recommends MRI brain with contrast. Therefore, I coordinated with Dr. Lopez regards to hemodialysis and ordered test. 03/07/2021 Patient still with altered sensorium Hyperkalemia being treated Objective - Constitutional Vitals: Vital Signs - 12hr 03/07/21 03/07/21 03/07/21 07:00 08:26 08:29 Temperature Pulse Rate 118 H Respiratory 24 24 Rate Blood Pressure 175/89 [Left] O2 Sat by Pulse 100 99 100 Oximetry 03/07/21 03/07/21 03/07/21 08:32 09:34 11:02 Temperature 98.4 F Pulse Rate 117 H 118 H 118 H Respiratory 24 24 19 Rate Blood Pressure 179/99 171/85 158/62 [Left] O2 Sat by Pulse 100 98 100 Oximetry 03/07/21 12:11 Temperature Pulse Rate 117 H Respiratory 19 Rate Blood Pressure 158/64 [Left] O2 Sat by Pulse 100 Oximetry General appearance: Present: no acute distress, well-nourished - EENT Eyes: PERRL, EOM intact ENT: hearing intact, clear oral mucosa Ears: bilateral: normal - Neck Neck: supple, normal ROM - Respiratory Respiratory effort: normal Respiratory: bilateral: CTA - Breasts Breasts: normal - Cardiovascular Heart rate: 98 Rhythm: regular Heart Sounds: Present: S1 & S2. Absent: gallop, rub Extremities: pulses intact, No edema, normal color, Full ROM - Gastrointestinal General gastrointestinal: Present: soft, non-tender, non-distended, normal bowel sounds - Genitourinary Female genitourinary: normal - Integumentary Integumentary: clear, warm, dry - Musculoskeletal Musculoskeletal: generalized weakness - Neurologic Neurologic: moves all extremities - Psychiatric Psychiatric: other (Lethargic) - Labs CBC & Chem 7: 03/06/21 05:07 03/08/21 07:49 Labs: Abnormal lab results 03/06/21 03/06/21 03/07/21 Range/Units 14:09 17:36 01:23 POC Glucose 223 H 146 H (70-105) mg/dL C-Reactive Protein 7.70 H (0.00-1.30) mg/dL 03/07/21 03/07/21 Range/Units 08:25 12:47 POC Glucose 207 H 257 H (70-105) mg/dL C-Reactive Protein (0.00-1.30) mg/dL HEART Score - HEART Score Troponin: Troponin T 0.032 ng/mL (0.00-0.029) H 03/05/21 15:46
[2021-03-08] MEDS: hydrALAZINE 20 MG/1 ML INJ IV PRN ×2 (02:05→06:51)
[2021-03-08] MEDS: levETIRAcetam 1,500 MG in DEXTROSE 5% IN WATER 100 ML IV SCH ×2 (04:30→18:13)
[2021-03-08] MEDS: HEPARIN 5,000 UNIT/1 ML VIAL SUB-Q SCH ×3 (06:28→22:00)
[2021-03-08] MEDS: PHENYTOIN 100 MG/2 ML VIAL IV SCH ×3 (06:29→22:01)
[2021-03-08 07:25] LABS: Blood Urea Nitrogen 75 mg/dL (7-17); Calcium 9.1 mg/dL (8.4-10.2); Hemolysis Index 88
[2021-03-08 07:26] LABS: BUN/Creatinine Ratio 8
[2021-03-08 08:32] LABS: Calcium 9.2 mg/dL (8.4-10.2)
[2021-03-08] MEDS ORDERED: SODIUM CHLORIDE 0.9% 100 ML IV PRN (10:57)
--- NOTE | 2021-03-08 11:17 | Progress Note ---
Assessment and Plan - Patient Problems (1) Hyponatremia Current Visit: Yes Status: Acute Plan to address problem: Probably volume related. Fluid removal on dialysis and then follow-up sodium (2) Metabolic acidosis Current Visit: Yes Status: Acute Plan to address problem: Uremic acidosis, to be corrected with HD (3) ESRD (end stage renal disease) on dialysis Current Visit: Yes Status: Chronic Plan to address problem: HD today for correction of hyperkalemia and solute clearance. Cont HD on MWF schedule otherwise (4) Hypertensive chronic kidney disease with stage 5 chronic kidney disease or end stage renal disease Current Visit: No Status: Chronic Plan to address problem: Blood pressure elevated on presentation now improving. Follow blood pressure on current medications (5) Hyperkalemia Current Visit: No Status: Acute Plan to address problem: arranged HD for today for correction of hyperkalemia, cont 2g K renal diet (6) Seizure disorder Current Visit: No Status: Acute Plan to address problem: Patient appears to be in status epilepticus. EEG and antiepileptic medications been ordered by neurologist. Continue management by neurologist. (7) Type 2 diabetes mellitus with diabetic chronic kidney disease Current Visit: No Status: Chronic Qualifiers: Diabetes mellitus custodial insulin use: with emt intermediate use Chronic kidney disease stage: on chronic dialysis Qualified Code(s): E11.22 - Type 2 diabetes mellitus with diabetic chronic kidney disease; N18.6 - End stage renal disease; Z79.4 - nursing home (current) use of insulin; Z99.2 - Dependence on renal dialysis Plan to address problem: Blood sugar management by primary attending Subjective Date of service: 03/08/21 Principal diagnosis: ESRD Interval history: Pt remains lethargic, on NRB mask. Objective - Vital Signs Vital signs: Vital Signs - 12hr 03/07/21 03/07/21 03/07/21 23:31 23:41 23:45 Pulse Rate 108 H 110 H 112 H Respiratory 17 18 16 Rate Blood Pressure 161/68 161/68 161/68 O2 Sat by Pulse 100 100 100 Oximetry 03/08/21 03/08/21 03/08/21 00:01 00:15 00:31 Pulse Rate 113 H 114 H 112 H Respiratory 17 19 17 Rate Blood Pressure 176/77 176/77 192/66 O2 Sat by Pulse 100 100 100 Oximetry 03/08/21 03/08/21 03/08/21 00:45 01:01 01:15 Pulse Rate 113 H 112 H 116 H Respiratory 18 17 23 Rate Blood Pressure 176/77 196/70 196/70 O2 Sat by Pulse 100 100 100 Oximetry 03/08/21 03/08/21 03/08/21 01:31 01:45 02:01 Pulse Rate 112 H 112 H 110 H Respiratory 16 17 16 Rate Blood Pressure 213/91 213/81 203/68 O2 Sat by Pulse 100 100 100 Oximetry 03/08/21 03/08/21 03/08/21 02:05 02:15 02:31 Pulse Rate 111 H 114 H 115 H Respiratory 21 19 Rate Blood Pressure 203/68 203/68 151/48 O2 Sat by Pulse 100 100 Oximetry 03/08/21 03/08/21 03/08/21 02:45 03:01 03:15 Pulse Rate 117 H 117 H 117 H Respiratory 21 17 18 Rate Blood Pressure 151/48 157/54 157/54 O2 Sat by Pulse 100 100 100 Oximetry 03/08/21 03/08/21 03/08/21 03:31 03:45 04:01 Pulse Rate 118 H 118 H 118 H Respiratory 21 19 19 Rate Blood Pressure 140/73 140/73 159/66 O2 Sat by Pulse 100 100 100 Oximetry 03/08/21 03/08/21 03/08/21 04:15 04:31 04:45 Pulse Rate 118 H 116 H 110 H Respiratory 17 18 14 Rate Blood Pressure 159/66 175/90 175/90 O2 Sat by Pulse 100 100 99 Oximetry 03/08/21 03/08/21 03/08/21 05:01 05:15 05:31 Pulse Rate 111 H 111 H 112 H Respiratory 15 18 17 Rate Blood Pressure 174/75 174/75 193/76 O2 Sat by Pulse 100 100 100 Oximetry 03/08/21 03/08/21 03/08/21 05:45 06:01 06:15 Pulse Rate 110 H 113 H 112 H Respiratory 17 15 15 Rate Blood Pressure 193/76 186/71 186/71 O2 Sat by Pulse 100 100 100 Oximetry 03/08/21 03/08/21 03/08/21 06:31 06:45 06:51 Pulse Rate 114 H 108 H 109 H Respiratory 15 15 Rate Blood Pressure 188/70 188/70 201/63 O2 Sat by Pulse 100 100 Oximetry 03/08/21 03/08/2121 07:01 07:15 07:31 Pulse Rate 113 H 112 H 111 H Respiratory 16 24 16 Rate Blood Pressure 201/63 201/63 145/34 O2 Sat by Pulse 100 100 100 Oximetry 03/08/21 03/08/21 03/08/21 07:45 08:01 08:15 Pulse Rate 112 H 109 H 110 H Respiratory 19 17 16 Rate Blood Pressure 145/34 153/69 145/34 O2 Sat by Pulse 100 100 100 Oximetry 03/08/21 03/08/21 03/08/21 08:31 08:45 09:01 Pulse Rate 109 H 110 H 108 H Respiratory 17 15 17 Rate Blood Pressure 162/64 153/69 174/62 O2 Sat by Pulse 100 100 100 Oximetry 03/08/21 03/08/21 03/08/21 09:15 09:31 09:45 Pulse Rate 107 H 107 H 109 H Respiratory 18 19 16 Rate Blood Pressure 174/62 186/69 186/69 O2 Sat by Pulse 100 100 100 Oximetry 03/08/21 10:01 Pulse Rate 109 H Respiratory 20 Rate Blood Pressure 202/67 O2 Sat by Pulse 100 Oximetry - General Appearance General appearance: well-developed, appears stated age EENT: ATNC, PERRL, mucous membranes moist Respiratory: Present: Decreased Breath Sounds Cardiology: regular, S1S2 Gastrointestinal: normoactive bowel sounds Integumentary: no rash Neurologic: no focal deficit, confused, disoriented, CN 3-12 intact - Lab 03/06/21 05:07 03/08/21 07:49 Most recent lab results ABG pH 7.431 (7.320-7.450) 03/05/21 16:15 ABG O2 Saturation 94.6 (0-100) 03/05/21 16:15 Calcium 9.2 mg/dL (8.4-10.2) 03/08/21 07:49 Medications & Allergies - Medications Allergies/Adverse Reactions: Allergies ibuprofen Allergy (Verified 06/24/17 17:09) Rash Home Medications: Home Medications Medication Instructions Recorded Confirmed Last Taken Type Gabapentin 600 mg PO TID 08/27/15 10/31/18 08/09/17 History Ferric Citrate (Nf) [Auryxia] 210 mg PO TID 10/31/18 10/31/18 Unknown History Insulin Aspart (Nf) [NovoLOG 15 - 20 units SUB-Q DAILY@0900 10/31/18 10/31/18 Unknown History Flexpen] Insulin Aspart (Nf) [NovoLOG 15 - 20 units SUB-Q DAILY@1530 10/31/18 10/31/18 Unknown History Flexpen] Insulin Glargine,Hum.rec.anlog 15 - 20 units SUB-Q DAILY@2100 PRN 10/31/18 10/31/18 Unknown History [Lantus Solostar] AtorvaSTATin [Lipitor] 40 mg PO DAILY #30 tablet 11/02/18 Unknown Rx amLODIPine 10 mg PO DAILY #30 tablet 11/02/18 Unknown Rx cloNIDine [Catapres] 0.1 mg PO Q8HR #90 tablet 11/02/18 Unknown Rx levETIRAcetam [Keppra TAB] 750 mg PO BID #60 tablet 11/02/18 Unknown Rx oxyCODONE /ACETAMINOPHEN [Percocet 1 tab PO Q6H PRN #8 tablet 11/02/18 Unknown Rx 5/325 mg] Active Medications: Generic Name Dose Route Start Last Admin Trade Name Freq PRN Reason Stop Dose Admin Acetaminophen 650 mg 03/05/21 06:13 Acetaminophen 650 Mg Rect Supp IN Q6H PRN Pain MILD(1-3)/Fever >100.5/LEE Dextrose 50 ml 03/05/21 06:13 Dextrose 50% In Water (25gm) 50 Ml Syringe IV Q30MIN PRN Hypoglycemia Protocol Heparin Sodium (Porcine) 5,000 unit 03/05/21 14:00 03/08/21 06:28 Heparin 5,000 Unit/1 Ml Vial SUB-Q 5,000 unit Q8HR LORENE Administration Hydralazine HCl 10 mg 03/05/21 06:43 03/08/21 06:51 Hydralazine 20 Mg/1 Ml Inj IV 10 mg Q4HR PRN Administration Blood Pressure Levetiracetam 1,500 mg/ 115 mls @ 400 mls/hr 03/05/21 16:00 03/08/21 04:48 Dextrose IV Infused Q12H LORENE Infusion Sodium Chloride 100 mls @ 999 mls/hr 03/06/21 08:30 Nacl 0.9% IV DESIREE PRN Hypotension Levofloxacin/Dextrose 500 mg in 100 mls @ 100 mls/hr 03/09/21 12:00 Levaquin 500mg/100ml IV Q48H LORENE Protocol Insulin Human Lispro 0 unit 03/05/21 07:30 03/07/21 23:18 Insulin Lispro 100 Unit/Ml SUB-Q 2 unit ACHS LORENE Administration Protocol Lorazepam 2 mg 03/05/21 07:00 Lorazepam 2 Mg/Ml Vial IV Q4H PRN Seizures Magnesium Hydroxide 30 ml 03/05/21 06:13 Magnesium Hydroxide (Mom) Oral Liqd Udc PO Q4H PRN Constipation Morphine Sulfate 2 mg 03/05/21 06:13 Morphine 2 Mg/1 Ml Inj IV Q4H PRN Pain, Moderate (4-6) Morphine Sulfate 4 mg 03/05/21 06:13 Morphine 4 Mg/1 Ml Inj IV Q4H PRN Pain , Severe (7-10) Phenytoin 100 mg 03/05/21 22:00 03/08/21 06:29 Phenytoin 100 Mg/2 Ml Vial IV 100 mg Q8HR LORENE Administration Sodium Chloride 10 ml 03/05/21 10:00 03/07/21 23:23 Sodium Chloride 0.9% 10 Ml Flush Syringe IV 10 ml BID LORENE Administration Sodium Chloride 10 ml 03/05/21 06:13 Sodium Chloride 0.9% 10 Ml Flush Syringe IV PRN PRN LINE FLUSH
[2021-03-08] MEDS ORDERED: CALCIUM GLUCONATE 2,000 MG in SODIUM CHLORIDE 0.9% 100 ML IV ONE (12:28)
[2021-03-08] MEDS ORDERED: SODIUM BICARB 8.4% 50 MEQ/50 ML SYRINGE IV ONE (12:28)
[2021-03-08] MEDS ORDERED: INSULIN REGULAR, HUMAN 100 UNITS/1 ML IV ONE (12:29)
[2021-03-08] MEDS ORDERED: DEXTROSE 50% IN WATER (25GM) 50 ML SYRINGE IV PRN (12:30)
[2021-03-08] MEDS: INSULIN LISPRO 100 UNIT/ML SUB-Q SCH ×4 (13:08→22:03)
--- NOTE | 2021-03-08 14:28 | Progress Note ---
Assessment and Plan Critical care The high probability OF a clinically significant sudden or life-threatening deterioration of the cardiorespiratory system and endocrine system required my full and direct attention, intervention and postoperative management. The aggregate critical care time was 40 minutes. The time is in addition to time spent performing reported procedures but includes the followin: Data review and interpretation 2: Patient assessment and monitoring of vital signs 3: Documentation 4:: Medication orders and management - Patient Problems (1) Acute encephalopathy Current Visit: Yes Status: Acute Plan to address problem: Possibly secondary to uremia MRI negative MRI with contrast requested by neurology Patient on antiseizure medication (2) End stage renal disease on dialysis Current Visit: Yes Status: Acute Plan to address problem: Continue hemodialysis Nephrology consult appreciated (3) Hyperkalemia Current Visit: Yes Status: Acute Plan to address problem: Being treated aggressively (4) NSTEMI (non-ST elevated myocardial infarction) Current Visit: Yes Status: Acute Plan to address problem: Troponin leak (5) HTN (hypertension) Current Visit: Yes Status: Chronic Qualifiers: Hypertension type: renovascular hypertension Qualified Code(s): I15.0 - Renovascular hypertension Plan to address problem: Patient initiated on Catapres patch and IV hydralazine 10 mg every 3 hours as needed (6) T2DM (type 2 diabetes mellitus) Current Visit: Yes Status: Chronic Qualifiers: Diabetes mellitus group home insulin use: unspecified group home insulin use status Plan to address problem: Coverage for now (7) DVT prophylaxis Current Visit: Yes Status: Acute Plan to address problem: On anticoagulation and GI prophylaxis Subjective Date of service: 03/08/21 Principal diagnosis: ESRD Interval history: 50-year-old female with known history of end-stage renal disease on dialysis, history of seizure disorder, CVA, diabetes mellitus and hypertension brought into the emergency room today for changes in mental status. Patient unable to give any history at this time most of the history was gotten from the ER staff. According to EMS patient was said to be hypoglycemic earlier in the day and later became hyperglycemic now. Last well-known time is unknown. Patient was said to have been found unresponsive in bed by the family. Blood pressure was quite elevated upon arrival in the emergency room with systolic in the 200s and diastolic in the low 100s. Work-up in the emergency room today reveals a hemoglobin of 9.9 and hematocrit of 30. BUN was 46 and creatinine of 7.6. Troponin was 0.034. Checks x-ray reveals:Mild increased pulmonary vascularity No pneumothorax. CT scan of the head reveals no acute intracranial abnormality. Patient is being admitted with altered mental status with unclear etiology. 03/05/2021. Await neurology evaluation. CT head reveals no acute abnormality. Await MRI of the brain. Check ammonia and TSH levels. 03/06/2021. EEG ordered stat. Neurology ordered fosphenytoin x1. Continue Keppra and Dilantin per neurology recommendations. Follow-up MRI brain when patient stable. Follow-up ammonia, esr, crp, b12, tsh, uds. Patient with leukocytosis today, WBC 14 8. Rule out infectious etiology. Unable to check urinalysis because patient is anuric. Patient remains afebrile. Start empiric antibiotics of Levaquin. MRI brain showed no acute findings. However, neurology recommends MRI brain with contrast. Therefore, I coordinated with Dr. Lopez regards to hemodialysis and ordered test. 03/07/2021 Patient still with altered sensorium Hyperkalemia being treated 03/08/2021 More alert and oriented Hyperkalemia being treated Patient underwent hemodialysis Objective - Constitutional Vitals: Vital Signs - 12hr 03/08/21 03/08/21 03/08/21 02:31 02:45 03:01 Pulse Rate 115 H 117 H 117 H Respiratory 19 21 17 Rate Blood Pressure 151/48 151/48 157/54 O2 Sat by Pulse 100 100 100 Oximetry 03/08/21 03/08/21 03/08/21 03:15 03:31 03:45 Pulse Rate 117 H 118 H 118 H Respiratory 18 21 19 Rate Blood Pressure 157/54 140/73 140/73 O2 Sat by Pulse 100 100 100 Oximetry 03/08/21 03/08/21 03/08/21 04:01 04:15 04:31 Pulse Rate 118 H 118 H 116 H Respiratory 19 17 18 Rate Blood Pressure 159/66 159/66 175/90 O2 Sat by Pulse 100 100 100 Oximetry 03/08/21 03/08/21 03/08/21 04:45 05:01 05:15 Pulse Rate 110 H 111 H 111 H Respiratory 14 15 18 Rate Blood Pressure 175/90 174/75 174/75 O2 Sat by Pulse 99 100 100 Oximetry 03/08/21 03/08/21 03/08/21 05:31 05:45 06:01 Pulse Rate 112 H 110 H 113 H Respiratory 17 17 15 Rate Blood Pressure 193/76 193/76 186/71 O2 Sat by Pulse 100 100 100 Oximetry 03/08/21 03/08/21 03/08/21 06:15 06:31 06:45 Pulse Rate 112 H 114 H 108 H Respiratory 15 15 15 Rate Blood Pressure 186/71 188/70 188/70 O2 Sat by Pulse 100 100 100 Oximetry 03/08/21 03/08/21 03/08/21 06:51 07:01 07:15 Pulse Rate 109 H 113 H 112 H Respiratory 16 24 Rate Blood Pressure 201/63 201/63 201/63 O2 Sat by Pulse 100 100 Oximetry 03/08/21 03/08/21 03/08/21 07:31 07:45 08:01 Pulse Rate 111 H 112 H 109 H Respiratory 16 19 17 Rate Blood Pressure 145/34 145/34 153/69 O2 Sat by Pulse 100 100 100 Oximetry 03/08/21 03/08/21 03/08/21 08:15 08:31 08:45 Pulse Rate 110 H 109 H 110 H Respiratory 16 17 15 Rate Blood Pressure 145/34 162/64 153/69 O2 Sat by Pulse 100 100 100 Oximetry 03/08/21 03/08/21 03/08/21 09:01 09:15 09:31 Pulse Rate 108 H 107 H 107 H Respiratory 17 18 19 Rate Blood Pressure 174/62 174/62 186/69 O2 Sat by Pulse 100 100 100 Oximetry 03/08/21 03/08/21 03/08/21 09:45 10:01 10:15 Pulse Rate 109 H 109 H 108 H Respiratory 16 20 14 Rate Blood Pressure 186/69 202/67 202/67 O2 Sat by Pulse 100 100 100 Oximetry 03/08/21 03/08/21 03/08/21 10:31 10:45 11:01 Pulse Rate 107 H 106 H 106 H Respiratory 17 17 19 Rate Blood Pressure 186/68 186/68 189/55 O2 Sat by Pulse 100 100 100 Oximetry 03/08/21 03/08/21 03/08/21 11:15 11:31 11:45 Pulse Rate 105 H 106 H 106 H Respiratory 13 18 18 Rate Blood Pressure 189/55 196/71 196/71 O2 Sat by Pulse 100 100 100 Oximetry 03/08/21 03/08/21 03/08/21 12:01 12:15 12:31 Pulse Rate 105 H 101 H 101 H Respiratory 17 14 18 Rate Blood Pressure 203/65 203/65 205/64 O2 Sat by Pulse 100 100 100 Oximetry 03/08/21 03/08/21 03/08/21 12:45 13:01 13:15 Pulse Rate 103 H 103 H 107 H Respiratory 20 13 11 L Rate Blood Pressure 205/64 151/51 189/48 O2 Sat by Pulse 100 100 100 Oximetry 03/08/21 03/08/21 03/08/21 13:20 13:31 13:45 Pulse Rate 106 H 108 H Respiratory 15 16 Rate Blood Pressure 145/89 145/89 O2 Sat by Pulse 100 100 97 Oximetry 03/08/21 13:57 Pulse Rate Respiratory Rate Blood Pressure O2 Sat by Pulse 98 Oximetry General appearance: Present: no acute distress, well-nourished - EENT Eyes: PERRL, EOM intact ENT: hearing intact, clear oral mucosa Ears: bilateral: normal - Neck Neck: supple, normal ROM - Respiratory Respiratory effort: normal Respiratory: bilateral: CTA - Breasts Breasts: normal - Cardiovascular Heart rate: 78 Rhythm: regular Heart Sounds: Present: S1 & S2. Absent: gallop, rub Extremities: pulses intact, No edema, normal color, Full ROM - Gastrointestinal General gastrointestinal: Present: soft, non-tender, non-distended, normal bowel sounds - Genitourinary Female genitourinary: normal - Integumentary Integumentary: clear, warm, dry - Musculoskeletal Musculoskeletal: 1, strength equal bilaterally - Neurologic Neurologic: moves all extremities - Psychiatric Psychiatric: other (Lethargic) - Labs CBC & Chem 7: 03/06/21 05:07 03/08/21 07:49 Labs: Abnormal lab results 03/07/21 03/07/21 03/08/21 Range/Units 17:20 23:15 06:27 Sodium 136 L (137-145) mmol/L Potassium (3.6-5.0) mmol/L Chloride 90.8 L (98-107) mmol/L BUN 75 H (7-17) mg/dL Creatinine 9.3 H (0.6-1.2) mg/dL Glucose 260 H (65-100) mg/dL POC Glucose 174 H 174 H (70-105) mg/dL 03/08/21 03/08/21 Range/Units 07:49 12:04 Sodium 136 L (137-145) mmol/L Potassium 6.3 H* (3.6-5.0) mmol/L Chloride 90.6 L (98-107) mmol/L BUN 79 H (7-17) mg/dL Creatinine 9.4 H (0.6-1.2) mg/dL Glucose 297 H (65-100) mg/dL POC Glucose 291 H (70-105) mg/dL HEART Score - HEART Score Troponin: Troponin T 0.032 ng/mL (0.00-0.029) H 03/05/21 15:46
[2021-03-09] MEDS ORDERED: cloNIDine TTS 0.2 MG/24 HR PATCH TD SCH
[2021-03-09] MEDS: HEPARIN 5,000 UNIT/1 ML VIAL SUB-Q SCH ×3 (06:02→23:26)
[2021-03-09] MEDS: levETIRAcetam 1,500 MG in DEXTROSE 5% IN WATER 100 ML IV SCH ×2 (06:02→16:16)
[2021-03-09] MEDS: PHENYTOIN 100 MG/2 ML VIAL IV SCH ×3 (08:08→23:26)
[2021-03-09] MEDS: INSULIN LISPRO 100 UNIT/ML SUB-Q SCH ×4 (08:08→23:56)
[2021-03-09 09:14] LABS: Albumin 3.6 g/dL (3.9-5); Calcium 8.9 mg/dL (8.4-10.2)
[2021-03-09] MEDS ORDERED: SODIUM CHLORIDE 0.9% 100 ML IV PRN (10:02)
--- NOTE | 2021-03-09 10:21 | Progress Note ---
Assessment and Plan - Patient Problems (1) Hyperkalemia Current Visit: No Status: Acute Plan to address problem: Received additional HD yesterday for correction of hyperkalemia, cont 2g K renal diet. repeat BMP pending (2) ESRD (end stage renal disease) on dialysis Current Visit: Yes Status: Chronic Plan to address problem: S/p urgent HD yesterday for correction of hyperkalemia and solute clearance. If repeat BMP shows improved hyperkalemia will schedule HD on TTS schedule (3) Hyponatremia Current Visit: Yes Status: Acute Plan to address problem: Probably volume related. Fluid removal on dialysis and then follow-up sodium (4) Metabolic acidosis Current Visit: Yes Status: Acute Plan to address problem: Uremic acidosis, to be corrected with HD (5) Hypertensive chronic kidney disease with stage 5 chronic kidney disease or end stage renal disease Current Visit: No Status: Chronic Plan to address problem: Blood pressure elevated on presentation now improving. Follow blood pressure on current medications (6) Seizure disorder Current Visit: No Status: Acute Plan to address problem: Patient appears to be in status epilepticus. EEG and antiepileptic medications been ordered by neurologist. Continue management by neurologist. 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 received urgent HD yesterday for correction of hyperkalemia/solute clearance Objective - Vital Signs Vital signs: Vital Signs - 12hr 03/09/21 03/09/21 07:21 09:01 Pulse Rate 113 H 109 H Respiratory 12 11 L Rate Blood Pressure 150/85 149/72 O2 Sat by Pulse 99 99 Oximetry - General Appearance General appearance: well-developed, well-nourished, appears stated age EENT: ATNC, PERRL, mucous membranes moist Respiratory: Present: Decreased Breath Sounds Cardiology: regular, S1S2 Gastrointestinal: normoactive bowel sounds Integumentary: no rash Neurologic: no focal deficit, alert and oriented x3, strength 5/5, CN 3-12 intact - Lab 03/06/21 05:07 03/09/21 Unknown Most recent lab results ABG pH 7.431 (7.320-7.450) 03/05/21 16:15 ABG O2 Saturation 94.6 (0-100) 03/05/21 16:15 Calcium 8.9 mg/dL (8.4-10.2) 03/09/21 Unknown Medications & Allergies - Medications Allergies/Adverse Reactions: Allergies ibuprofen Allergy (Verified 06/24/17 17:09) Rash Home Medications: Home Medications Medication Instructions Recorded Confirmed Last Taken Type Gabapentin 600 mg PO TID 08/27/15 10/31/18 08/09/17 History Ferric Citrate (Nf) [Auryxia] 210 mg PO TID 10/31/18 10/31/18 Unknown History Insulin Aspart (Nf) [NovoLOG 15 - 20 units SUB-Q DAILY@0900 10/31/18 10/31/18 Unknown History Flexpen] Insulin Aspart (Nf) [NovoLOG 15 - 20 units SUB-Q DAILY@1530 10/31/18 10/31/18 Un known History Flexpen] Insulin Glargine,Hum.rec.anlog 15 - 20 units SUB-Q DAILY@2100 PRN 10/31/18 10/31/18 Unknown History [Lantus Solostar] AtorvaSTATin [Lipitor] 40 mg PO DAILY #30 tablet 11/02/18 Unknown Rx amLODIPine 10 mg PO DAILY #30 tablet 11/02/18 Unknown Rx cloNIDine [Catapres] 0.1 mg PO Q8HR #90 tablet 11/02/18 Unknown Rx levETIRAcetam [Keppra TAB] 750 mg PO BID #60 tablet 11/02/18 Unknown Rx oxyCODONE /ACETAMINOPHEN [Percocet 1 tab PO Q6H PRN #8 tablet 11/02/18 Unknown Rx 5/325 mg] Active Medications: Generic Name Dose Route Start Last Admin Trade Name Freq PRN Reason Stop Dose Admin Acetaminophen 650 mg 03/05/21 06:13 Acetaminophen [address] Q6H PRN Pain MILD(1-3)/Fever >100.5/LEE Clonidine HCl 0.2 mg 03/15/21 10:00 Clonidine Tts 0.2 Mg/24 Hr Patch TD QWEEK LORENE Dextrose 50 ml 03/05/21 06:13 Dextrose 50% In Water (25gm) 50 Ml Syringe IV Q30MIN PRN Hypoglycemia Protocol Dextrose 0 ml 03/08/21 12:30 Dextrose 50% In Water (25gm) 50 Ml Syringe IV ONCE PRN Hypoglycemia Heparin Sodium (Porcine) 5,000 unit 03/05/21 14:00 03/09/21 06:02 Heparin 5,000 Unit/1 Ml Vial SUB-Q 5,000 unit Q8HR LORENE Administration Hydralazine HCl 10 mg 03/05/21 06:43 03/08/21 06:51 Hydralazine 20 Mg/1 Ml Inj IV 10 mg Q4HR PRN Administration Blood Pressure Levetiracetam 1,500 mg/ 115 mls @ 400 mls/hr 03/05/21 16:00 03/09/21 06:02 Dextrose IV 400 mls/hr Q12H LORENE Administration Sodium Chloride 100 mls @ 999 mls/hr 03/06/21 08:30 Nacl 0.9% IV DESIREE PRN Hypotension Levofloxacin/Dextrose 500 mg in 100 mls @ 100 mls/hr 03/09/21 12:00 Levaquin 500mg/100ml IV Q48H LORENE Protocol Sodium Chloride 100 mls @ 999 mls/hr 03/09/21 10:02 Nacl 0.9% IV DESIREE PRN Hypotension Insulin Human Lispro 0 unit 03/05/21 07:30 03/09/21 08:08 Insulin Lispro 100 Unit/Ml SUB-Q 2 unit ACHS LORENE Administration Protocol Lorazepam 2 mg 03/05/21 07:00 Lorazepam 2 Mg/Ml Vial IV Q4H PRN Seizures Magnesium Hydroxide 30 ml 03/05/21 06:13 Magnesium Hydroxide (Mom) Oral Liqd Udc PO Q4H PRN Constipation Morphine Sulfate 2 mg 03/05/21 06:13 Morphine 2 Mg/1 Ml Inj IV Q4H PRN Pain, Moderate (4-6) Morphine Sulfate 4 mg 03/05/21 06:13 Morphine 4 Mg/1 Ml Inj IV Q4H PRN Pain , Severe (7-10) Phenytoin 100 mg 03/05/21 22:00 03/09/21 08:08 Phenytoin 100 Mg/2 Ml Vial IV 100 mg Q8HR LORENE Administration Sodium Chloride 10 ml 03/05/21 10:00 03/08/21 23:00 Sodium Chloride 0.9% 10 Ml Flush Syringe IV 10 ml BID LORENE Administration Sodium Chloride 10 ml 03/05/21 06:13 Sodium Chloride 0.9% 10 Ml Flush Syringe IV PRN PRN LINE FLUSH
--- NOTE | 2021-03-09 11:45 | Progress Note ---
Assessment and Plan Assessment and plan: 50-year-old female with known history of end-stage renal disease on HD, seizure disorder, CVA with Rt. side deficits, diabetes mellitus, and hypertension with acute encephalophy and electrolyte imbalance secondary to uremia. #Acute metabolic encephalopathy 2/2 to uremia - 03/05 CT head and MRI w/o contrast showed no acute abnormalities - Cont. dilantin, Keppra, and PRN ativan for seizure Per Neurology - Seizure precaution - EEG pending - Neuro on consult #End stage renal disease on dialysis- Pt. is anuric #Hyperkalemia #Hyponatremia - Continue hemodialysis, - Nephrology following. S/p urgent HD on 03/08 - Per Nephro If Hyperkalemia improved in this am BMP plan for schedule HD on TTS - Follow up labs in the am #Cardio: elevated Troponin possibly Renal related; H/o HTN - Troponin:0.034, 0.032; 03/05 EKG noted - Continue clonidine patch and PRN hydralazine for SBP>160 - Will restart home meds if patient pass bedside swallow GI: - Patient currently NPO, Nursing Bedside swallow ordered. - Possible Speech Eval if patient fails bedside swallow ID: - Patient remains afebrile, VSS, - Will D/C Levaquin - Pending CBC result #Endo: H/o T2DM (type 2 diabetes mellitus) - Cont Humalog sliding scale low-dose. #Advance Care Planning - Discharge planning ongoing - PT/OT eval and treat - Will place a call to listed contact to update them on patient's status #DVT prophylaxis: SCDs, Heparin SubQ q8hrs History Interval history: Patient was seen and examined in the ED. Patient is drowsy, easily arousable, AAO to self, on 3L NC. Per RN no acute events overnight, patient remains afebrile, CBC ordered to follow up on leukocytosis, will D/C levaquin for now. Patient remains NPO, plan for nursing bedside swallow eval today, if patient fails will order a Speech eval. PT/OT order for disharge planning. Possible HD today if still hyperkalemic, Nephro is following. Hospitalist Physical - Constitutional Vitals: Temp Pulse Resp BP Pulse Ox 97.9 F 107 H 9 L 177/88 100 03/08/21 18:00 03/09/21 11:20 03/09/21 11:20 03/09/21 11:20 03/09/21 11:20 General appearance: Present: no acute distress, well-nourished - EENT Eyes: Present: PERRL, EOM intact ENT: hearing intact, clear oral mucosa - Respiratory Respiratory effort: normal Respiratory: bilateral: diminished - Cardiovascular Rhythm: regular Heart Sounds: Present: S1 & S2 - Extremities Extremities: no ischemia, pulses intact, pulses symmetrical Extremity abnormal: edema - Peripheral Assessment Bilateral Leg Edema Type: Non-pitting Capillary Refill: < 3 seconds Skin Temperature: Warm Peripheral Pulses: within normal limits - Abdominal General gastrointestinal: soft, non-tender, normal bowel sounds - Integumentary Integumentary: Present: clear, warm, dry - Psychiatric Psychiatric: other - Neurologic Neurologic: other (Rt. sided weakness, Rt. facial droop noted from past CVA) - Allied Health Allied health notes reviewed: nursing HEART Score - HEART Score Troponin: Troponin T 0.032 ng/mL (0.00-0.029) H 03/05/21 15:46 Results - Labs CBC & Chem 7: 03/09/21 09:54 03/09/21 Unknown Labs: Laboratory Last Values WBC 14.8 K/mm3 (4.5-11.0) H 03/06/21 05:07 RBC 4.06 M/mm3 (3.65-5.03) 03/06/21 05:07 Hgb 11.0 gm/dl (10.1-14.3) 03/06/21 05:07 Hct 34.7 % (30.3-42.9) 03/06/21 05:07 MCV 86 fl (79-97) 03/06/21 05:07 MCH 27 pg (28-32) L 03/06/21 05:07 MCHC 32 % (30-34) 03/06/21 05:07 RDW 17.0 % (13.2-15.2) H 03/06/21 05:07 Plt Count 216 K/mm3 (140-440) 03/06/21 05:07 Lymph % (Auto) 6.3 % (13.4-35.0) L 03/06/21 05:07 Ness % (Auto) 6.0 % (0.0-7.3) 03/06/21 05:07 Eos % (Auto) 0.2 % (0.0-4.3) 03/06/21 05:07 Baso % (Auto) 0.3 % (0.0-1.8) 03/06/21 05:07 Lymph # (Auto) 0.9 K/mm3 (1.2-5.4) L 03/06/21 05:07 Ness # (Auto) 0.9 K/mm3 (0.0-0.8) H 03/06/21 05:07 Eos # (Auto) 0.0 K/mm3 (0.0-0.4) 03/06/21 05:07 Baso # (Auto) 0.1 K/mm3 (0.0-0.1) 03/06/21 05:07 Seg Neutrophils % 87.2 % (40.0-70.0) H 03/06/21 05:07 Seg Neutrophils # 12.9 K/mm3 (1.8-7.7) H 03/06/21 05:07 ESR 78 mm/Hr (0-20) 03/06/21 15:29 PT 14.5 Sec. (12.2-14.9) 03/06/21 05:07 INR 1.08 (0.87-1.13) 03/06/21 05:07 ABG pH 7.431 (7.320-7.450) 03/05/21 16:15 POC ABG pCO2 37.1 mmHg (32.0-48.0) 03/05/21 16:15 POC ABG pO2 80.0 mmHg (83-108) L 03/05/21 16:15 POC ABG HCO3 24.1 03/05/21 16:15 ABG O2 Saturation 94.6 (0-100) 03/05/21 16:15 POC ABG Base Excess 0 03/05/21 16:15 ABG Hemoglobin 11.0 (12.0-17.5) L 03/05/21 16:15 ABG Oxyhemoglobin 93.3 (94-98) L 03/05/21 16:15 ABG Methemoglobin 0.3 (0.0-1.5) 03/05/21 16:15 ABG Sodium 131.5 mmol/L (136.0-145.0) L 03/05/21 16:15 ABG Potassium 5.1 mmol/L (3.40-4.50) H 03/05/21 16:15 ABG Chloride 95.0 mmol/L (98-107) L 03/05/21 16:15 ABG Glucose 302 mg/dL (65-95) H 03/05/21 16:15 Carboxyhemoglobin 1.1 (0.5-1.5) 03/05/21 16:15 FiO2 % 21.0 03/05/21 16:15 Sodium 140 mmol/L (137-145) 03/09/21 Unknown Potassium 4.5 mmol/L (3.6-5.0) D 03/09/21 Unknown Chloride 95.6 mmol/L (98-107) L 03/09/21 Unknown Carbon Dioxide 24 mmol/L (22-30) 03/09/21 Unknown Anion Gap 25 mmol/L 03/09/21 Unknown BUN 52 mg/dL (7-17) H 03/09/21 Unknown Creatinine 6.4 mg/dL (0.6-1.2) H 03/09/21 Unknown Estimated GFR 8 ml/min 03/09/21 Unknown BUN/Creatinine Ratio 8 % 03/09/21 Unknown Glucose 190 mg/dL (65-100) H 03/09/21 Unknown POC Glucose 110 mg/dL (70-105) H 03/09/21 11:19 Calcium 8.9 mg/dL (8.4-10.2) 03/09/21 Unknown Total Bilirubin 0.30 mg/dL (0.1-1.2) 03/09/21 Unknown AST 22 units/L (5-40) 03/09/21 Unknown ALT 11 units/L (7-56) 03/09/21 Unknown Alkaline Phosphatase 208 units/L (35-129) H 03/09/21 Unknown Ammonia 46.0 umol/L (25-60) 03/06/21 14:09 Troponin T 0.032 ng/mL (0.00-0.029) H 03/05/21 15:46 C-Reactive Protein 7.70 mg/dL (0.00-1.30) H 03/06/21 14:09 Total Protein 7.6 g/dL (6.3-8.2) 03/09/21 Unknown Albumin 3.6 g/dL (3.9-5) L 03/09/21 Unknown Albumin/Globulin Ratio 0.9 % 03/09/21 Unknown Triglycerides 363 mg/dL (2-149) H 03/05/21 04:39 Cholesterol 154 mg/dL (50-199) 03/05/21 04:39 LDL Cholesterol Direct 73 mg/dL (50-130) 03/05/21 04:39 HDL Cholesterol 34 mg/dL (40-59) L 03/05/21 04:39 Cholesterol/HDL Ratio 4.52 % 03/05/21 04:39 Vitamin B12 846.0 pg/mL (211-911) 03/06/21 14:09 TSH 2.530 mlU/mL (0.270-4.200) 03/06/21 14:09 Arterial Blood Glucose 302 mg/dL (65-95) H 03/05/21 16:15 Arterial Blood Ionized Calcium 4.1 mg/dL (4.6-5.3) L 03/05/21 16:15 Phenytoin 14.3 ug/mL (10.0-20.0) 03/09/21 03:40 Levetiracetam 32.3 mcg/mL (12.0-46.0) 03/05/21 15:46 Hepatitis A IgM Ab Non-reactive (NonReactive) 03/06/21 08:37 Hep Bs Antigen Nonreactive (Negative) 03/06/21 08:37 Hep B Core IgM Ab Non-reactive (NonReactive) 03/06/21 08:37 Hepatitis C Antibody Non-reactive (NonReactive) 03/06/21 08:37 Active Medications - Current Medications Current Medications: Generic Name Dose Route Start Last Admin Trade Name Freq PRN Reason Stop Dose Admin Acetaminophen 650 mg 03/05/21 06:13 Acetaminophen 650 Mg Rect Supp IL Q6H PRN Pain MILD(1-3)/Fever >100.5/LEE Clonidine HCl 0.2 mg 03/09/21 11:00 Clonidine Tts 0.2 Mg/24 Hr Patch TD Mo LORENE Dextrose 0 ml 03/08/21 12:30 Dextrose 50% In Water (25gm) 50 Ml Syringe IV ONCE PRN Hypoglycemia Heparin Sodium (Porcine) 5,000 unit 03/05/21 14:00 03/09/21 06:02 Heparin 5,000 Unit/1 Ml Vial SUB-Q 5,000 unit Q8HR LORENE Administration Hydralazine HCl 10 mg 03/05/21 06:43 03/08/21 06:51 Hydralazine 20 Mg/1 Ml Inj IV 10 mg Q4HR PRN Administration Blood Pressure Levetiracetam 1,500 mg/ 115 mls @ 400 mls/hr 03/05/21 16:00 03/09/21 06:02 Dextrose IV 400 mls/hr Q12H LORENE Administration Levofloxacin/Dextrose 500 mg in 100 mls @ 100 mls/hr 03/09/21 12:00 Levaquin 500mg/100ml IV 03/14/21 11:59 Q48H LORENE Protocol Sodium Chloride 100 mls @ 999 mls/hr 03/09/21 10:02 Nacl 0.9% IV DESIREE PRN Hypotension Insulin Human Lispro 0 unit 03/05/21 07:30 03/09/21 08:08 Insulin Lispro 100 Unit/Ml SUB-Q 2 unit ACHS LORENE Administration Protocol Lorazepam 2 mg 03/05/21 07:00 Lorazepam 2 Mg/Ml Vial IV Q4H PRN Seizures Magnesium Hydroxide 30 ml 03/05/21 06:13 Magnesium Hydroxide (Mom) Oral Liqd Udc PO Q4H PRN Constipation Morphine Sulfate 2 mg 03/05/21 06:13 Morphine 2 Mg/1 Ml Inj IV Q4H PRN Pain, Moderate (4-6) Morphine Sulfate 4 mg 03/05/21 06:13 Morphine 4 Mg/1 Ml Inj IV Q4H PRN Pain , Severe (7-10) Phenytoin 100 mg 03/05/21 22:00 03/09/21 08:08 Phenytoin 100 Mg/2 Ml Vial IV 100 mg Q8HR LORENE Administration Sodium Chloride 10 ml 03/05/21 10:00 03/08/21 23:00 Sodium Chloride 0.9% 10 Ml Flush Syringe IV 10 ml BID LORENE Administration Sodium Chloride 10 ml 03/05/21 06:13 Sodium Chloride 0.9% 10 Ml Flush Syringe IV PRN PRN LINE FLUSH Nutrition/Malnutrition Assess - Dietary Evaluation Nutrition/Malnutrition Findings: Nutrition Notes Start: 03/05/21 06:45 Freq: Status: Active Protocol: Document 03/09/21 10:37 (Rec: 03/09/21 10:37 [email or web address]) Nutrition Notes Initial or Follow up Brief Note Subjective/Other Information MD consult for diet education. Pt remains on hold in ED. Nutrition Intervention Follow-Up By: 03/11/21 Additional Comments F/u: diet education needs
[2021-03-09] MEDS: cloNIDine TTS 0.2 MG/24 HR PATCH TD SCH (14:47)
[2021-03-09] MEDS ORDERED: SODIUM BICARBONATE 325 MG TAB FEEDTUBE PRN (15:54)
[2021-03-09] MEDS ORDERED: LIPASE 10,500/PROTEASE 25,000/AMYLASE 43,750 (UNITS) DR CAP FEEDTUBE PRN (15:54)
[2021-03-09] MEDS ORDERED: SIMPLE SYRUP 15 ML FEEDTUBE PRN ×2 (15:54)
[2021-03-09 16:56] LABS: Hemoglobin 8.9 gm/dl (10.1-14.3); Mean Corpuscular HGB Conc 32 % (30-34); Mean Corpuscular Volume 87 fl (79-97); Platelet Count 152 K/mm3 (140-440); Red Cell Distribution Width 17.1 % (13.2-15.2)
--- NOTE | 2021-03-09 17:27 | Event Note ---
Date: 03/09/21 Place a call to patient's daughter, Anamaria Martini at [phone], in an attempt to update her on patient's status, no answer at this time. Team to follow up in the am.
--- NOTE | 2021-03-09 21:59 | XRay Report ---
ABDOMEN 1 VIEW INDICATION / CLINICAL INFORMATION: for dubhoff tubing check placement. COMPARISON: None available. FINDINGS: TUBES / LINES: Weighted feeding tube projects over the distal stomach. BOWEL GAS PATTERN: No significant abnormality. FREE AIR / EXTRALUMINAL GAS: None seen. ADDITIONAL FINDINGS: No significant additional findings. IMPRESSION: 1. Weighted feeding tube projects over the distal stomach but is not transpyloric. Signer Name: Michael Grady MD Signed: 03/09/2021 9:55 PM Workstation Name: [id number]
[2021-03-10] MEDS: hydrALAZINE 20 MG/1 ML INJ IV PRN ×2 (01:38→20:42)
[2021-03-10] MEDS: PHENYTOIN 100 MG/2 ML VIAL IV SCH ×3 (05:45→21:54)
[2021-03-10] MEDS: levETIRAcetam 1,500 MG in DEXTROSE 5% IN WATER 100 ML IV SCH (05:45)
[2021-03-10] MEDS: HEPARIN 5,000 UNIT/1 ML VIAL SUB-Q SCH ×3 (05:45→21:54)
[2021-03-10 06:17] LABS: Hematocrit 26.7 % (30.3-42.9); Hemoglobin 8.8 gm/dl (10.1-14.3); Mean Corpuscular HGB Conc 33 % (30-34); Mean Corpuscular Volume 86 fl (79-97); Platelet Count 150 K/mm3 (140-440); Red Blood Count 3.11 M/mm3 (3.65-5.03); Red Cell Distribution Width 16.9 % (13.2-15.2)
[2021-03-10 06:37] LABS: Albumin 3.7 g/dL (3.9-5); Calcium 9.3 mg/dL (8.4-10.2)
[2021-03-10] MEDS ORDERED: SODIUM BICARBONATE 325 MG TAB FEEDTUBE PRN ×2 (07:29→11:44)
[2021-03-10] MEDS ORDERED: LIPASE 10,500/PROTEASE 25,000/AMYLASE 43,750 (UNITS) DR CAP FEEDTUBE PRN ×2 (07:29→11:44)
[2021-03-10] MEDS ORDERED: SIMPLE SYRUP 15 ML FEEDTUBE PRN ×4 (07:29→11:44)
--- NOTE | 2021-03-10 08:32 | XRay Report ---
ABDOMEN 1 VIEW(S) INDICATION / CLINICAL INFORMATION: NG tube placement. COMPARISON: Yesterday FINDINGS: TUBES / LINES: Feeding tube appears unchanged in position terminating in the antrum of the stomach. BOWEL GAS PATTERN: No significant abnormality. FREE AIR / EXTRALUMINAL GAS: None seen. ADDITIONAL FINDINGS: No significant additional findings. IMPRESSION: The feeding tube terminates in the antrum of the stomach. No acute process is appreciated. Signer Name: Matt Olmedo Jr, MD Signed: 03/10/2021 8:28 AM Workstation Name: [id number]
--- NOTE | 2021-03-10 11:29 | Progress Note ---
Assessment and Plan Assessment and Plan Assessment and plan: 50-year-old female with known history of end-stage renal disease on HD, seizure disorder, CVA with left side deficits, diabetes mellitus, and hypertension with acute encephalophy and electrolyte imbalance secondary to uremia. #Acute metabolic encephalopathy 2/2 to uremia - 03/05 CT head and MRI w/o contrast showed no acute abnormalities --remote lacunar infarct BG and brain stem. - Cont. dilantin IV 100 q8 -check phenytoin level -will add Vimpat 100 mg IV bid and aditi of Keppra due to side effect - PRN ativan for seizure - Seizure precaution - EEG is remarkable for partial status with generalization noted predominantly on right frontal region done 03/06/21 - repeat EEG today # Hx of CVA -she is with left side weakness upper and lower -CT and MRI brain noted no acute event #End stage renal disease on dialysis- Pt. is anuric #Hyperkalemia #Hyponatremia - Continue hemodialysis, - Nephrology following. S/p urgent HD on 03/08 - Per Nephro If Hyperkalemia improved in this am BMP plan for schedule HD on TTS - Follow up labs in the am #Cardio: elevated Troponin possibly Renal related; H/o HTN - Troponin:0.034, 0.032; 03/05 EKG noted - Continue clonidine patch and PRN hydralazine for SBP>160 - Will restart home meds if patient pass bedside swallow GI: - Patient currently NPO, Nursing Bedside swallow ordered. - Possible Speech Eval if patient fails bedside swallow ID: - Patient remains afebrile, VSS, - Will D/C Levaquin - Pending CBC result #Endo: H/o T2DM (type 2 diabetes mellitus) - Cont Humalog sliding scale low-dose. #Advance Care Planning - Discharge planning ongoing - PT/OT eval and treat - Will place a call to listed contact to update them on patient's status #DVT prophylaxis: SCDs, Heparin SubQ q8hrs will follow Subjective Date of service: 03/10/21 Principal diagnosis: Change mentation , ESRD,Hx of seizure Interval history: she is with old left sided weakness and hx of seizure talking today and speech is not clear she is oriented to place and age Objective - Vital Sign Vital Signs - 12hr 03/10/21 03/10/21 03/10/21 00:01 01:01 01:38 Pulse Rate 116 H 113 H 113 H Respiratory 17 16 Rate Blood Pressure 179/89 181/80 198/97 Blood Pressure [Left] O2 Sat by Pulse 98 98 Oximetry 03/10/21 03/10/21 03/10/21 02:01 03:31 04:31 Pulse Rate 120 H 120 H 107 H Respiratory 14 19 16 Rate Blood Pressure 166/64 172/85 169/82 Blood Pressure [Left] O2 Sat by Pulse 98 97 99 Oximetry 03/10/21 03/10/21 03/10/21 05:01 06:15 08:54 Pulse Rate 108 H 118 H 104 H Respiratory 12 15 16 Rate Blood Pressure 173/83 181/76 Blood Pressure 155/51 [Left] O2 Sat by Pulse 99 97 95 Oximetry - General Apperance Constitutional: comfortable - EENT EENT: PERRL, mucous membranes moist - Respiratory Respiratory: lungs clear, rhonchi - Cardiovascular Cardiovascular: regular rate, normal S1, normal S2 Extremities: no peripheral edema bilat - Gastrointestinal Gastrointestinal: normoactive bowel sounds - Integumentary Integumentary: normal - Neurologic Cranial nerve examination: PERRL, EOMI, other (left facial droop) Speech examination: other (dysarthic speech ) Detailed motor examination: other (right is 4/5 left is 1-2 /5 upper and lower planter is down going , no clonus is noted , unable to walk) - Laboratory Findings CBC and BMP: 03/10/21 05:44 03/10/21 05:44 Abnormal Lab Findings: Abnormal Labs 03/05/21 03/05/21 03/05/21 02:34 04:14 04:39 WBC RBC 3.51 L Hgb 9.9 L Hct 30.0 L MCH RDW 16.8 H Lymph % (Auto) Lymph # (Auto) [place] # (Auto) Seg Neutrophils % 77.6 H Seg Neutrophils # POC ABG pO2 ABG Hemoglobin ABG Oxyhemoglobin ABG Sodium ABG Potassium ABG Chloride ABG Glucose Sodium Potassium Chloride Carbon Dioxide BUN Creatinine Glucose POC Glucose 167 H 198 H Alkaline Phosphatase Ammonia Troponin T C-Reactive Protein Albumin Triglycerides HDL Cholesterol Arterial Blood Glucose Arterial Blood Ionized Calcium 03/05/21 03/05/21 03/05/21 04:39 04:39 07:30 WBC RBC Hgb Hct MCH RDW Lymph % (Auto) Lymph # (Auto) [place] # (Auto) Seg Neutrophils % Seg Neutrophils # POC ABG pO2 ABG Hemoglobin ABG Oxyhemoglobin ABG Sodium ABG Potassium ABG Chloride ABG Glucose Sodium Potassium Chloride 95.9 L Carbon Dioxide BUN 46 H Creatinine 7.6 H Glucose 243 H POC Glucose 212 H Alkaline Phosphatase 238 H Ammonia 17.0 L Troponin T 0.034 H C-Reactive Protein Albumin 3.8 L Triglycerides 363 H HDL Cholesterol 34 L Arterial Blood Glucose Arterial Blood Ionized Calcium 03/05/21 03/05/21 03/05/21 11:39 15:46 16:15 WBC RBC Hgb Hct MCH RDW Lymph % (Auto) Lymph # (Auto) [place] # (Auto) Seg Neutrophils % Seg Neutrophils # POC ABG pO2 80.0 L ABG Hemoglobin 11.0 L ABG Oxyhemoglobin 93.3 L ABG Sodium 131.5 L ABG Potassium 5.1 H ABG Chloride 95.0 L ABG Glucose 302 H Sodium Potassium Chloride Carbon Dioxide BUN Creatinine Glucose POC Glucose 212 H Alkaline Phosphatase Ammonia Troponin T 0.032 H C-Reactive Protein Albumin Triglycerides HDL Cholesterol Arterial Blood Glucose 302 H Arterial Blood Ionized Calcium 4.1 L 03/05/21 03/05/21 03/06/21 17:32 21:56 05:07 WBC 14.8 H RBC Hgb Hct MCH 27 L RDW 17.0 H Lymph % (Auto) 6.3 L Lymph # (Auto) 0.9 L [place] # (Auto) 0.9 H Seg Neutrophils % 87.2 H Seg Neutrophils # 12.9 H POC ABG pO2 ABG Hemoglobin ABG Oxyhemoglobin ABG Sodium ABG Potassium ABG Chloride ABG Glucose Sodium Potassium Chloride Carbon Dioxide BUN Creatinine Glucose POC Glucose 245 H 236 H Alkaline Phosphatase Ammonia Troponin T C-Reactive Protein Albumin Triglycerides HDL Cholesterol Arterial Blood Glucose Arterial Blood Ionized Calcium 03/06/21 03/06/21 03/06/21 08:07 08:12 11:49 WBC RBC Hgb Hct MCH RDW Lymph % (Auto) Lymph # (Auto) [place] # (Auto) Seg Neutrophils % Seg Neutrophils # POC ABG pO2 ABG Hemoglobin ABG Oxyhemoglobin ABG Sodium ABG Potassium ABG Chloride ABG Glucose Sodium 131 L Potassium 5.8 H D Chloride 90.6 L Carbon Dioxide 16 L D BUN 65 H Creatinine 9.0 H Glucose 388 H POC Glucose 321 H 315 H Alkaline Phosphatase Ammonia Troponin T C-Reactive Protein Albumin Triglycerides HDL Cholesterol Arterial Blood Glucose Arterial Blood Ionized Calcium 03/06/21 03/06/21 03/07/21 14:09 17:36 01:23 WBC RBC Hgb Hct MCH RDW Lymph % (Auto) Lymph # (Auto) [place] # (Auto) Seg Neutrophils % Seg Neutrophils # POC ABG pO2 ABG Hemoglobin ABG Oxyhemoglobin ABG Sodium ABG Potassium ABG Chloride ABG Glucose Sodium Potassium Chloride Carbon Dioxide BUN Creatinine Glucose POC Glucose 223 H 146 H Alkaline Phosphatase Ammonia Troponin T C-Reactive Protein 7.70 H Albumin Triglycerides HDL Cholesterol Arterial Blood Glucose Arterial Blood Ionized Calcium 03/07/21 03/07/21 03/07/21 08:25 12:47 17:20 WBC RBC Hgb Hct MCH RDW Lymph % (Auto) Lymph # (Auto) [place] # (Auto) Seg Neutrophils % Seg Neutrophils # POC ABG pO2 ABG Hemoglobin ABG Oxyhemoglobin ABG Sodium ABG Potassium ABG Chloride ABG Glucose Sodium Potassium Chloride Carbon Dioxide BUN Creatinine Glucose POC Glucose 207 H 257 H 174 H Alkaline Phosphatase Ammonia Troponin T C-Reactive Protein Albumin Triglycerides HDL Cholesterol Arterial Blood Glucose Arterial Blood Ionized Calcium 03/07/21 03/08/21 03/08/21 23:15 06:27 07:49 WBC RBC Hgb Hct MCH RDW Lymph % (Auto) Lymph # (Auto) [place] # (Auto) Seg Neutrophils % Seg Neutrophils # POC ABG pO2 ABG Hemoglobin ABG Oxyhemoglobin ABG Sodium ABG Potassium ABG Chloride ABG Glucose Sodium 136 L 136 L Potassium 6.3 H* Chloride 90.8 L 90.6 L Carbon Dioxide BUN 75 H 79 H Creatinine 9.3 H 9.4 H Glucose 260 H 297 H POC Glucose 174 H Alkaline Phosphatase Ammonia Troponin T C-Reactive Protein Albumin Triglycerides HDL Cholesterol Arterial Blood Glucose Arterial Blood Ionized Calcium 03/08/21 03/09/21 03/09/21 12:04 03:12 06:13 WBC RBC Hgb Hct MCH RDW Lymph % (Auto) Lymph # (Auto) [place] # (Auto) Seg Neutrophils % Seg Neutrophils # POC ABG pO2 ABG Hemoglobin ABG Oxyhemoglobin ABG Sodium ABG Potassium ABG Chloride ABG Glucose Sodium Potassium Chloride Carbon Dioxide BUN Creatinine Glucose POC Glucose 291 H 201 H 178 H Alkaline Phosphatase Ammonia Troponin T C-Reactive Protein Albumin Triglycerides HDL Cholesterol Arterial Blood Glucose Arterial Blood Ionized Calcium 03/09/21 03/09/21 03/09/21 07:51 09:54 11:19 WBC 13.9 H RBC 3.20 L Hgb 8.9 L Hct 28.0 L MCH RDW 17.1 H Lymph % (Auto) Lymph # (Auto) [place] # (Auto) Seg Neutrophils % Seg Neutrophils # POC ABG pO2 ABG Hemoglobin ABG Oxyhemoglobin ABG Sodium ABG Potassium ABG Chloride ABG Glucose Sodium Potassium Chloride Carbon Dioxide BUN Creatinine Glucose POC Glucose 198 H 110 H Alkaline Phosphatase Ammonia Troponin T C-Reactive Protein Albumin Triglycerides HDL Cholesterol Arterial Blood Glucose Arterial Blood Ionized Calcium 03/09/21 03/09/21 03/09/21 16:10 23:23 Unknown WBC RBC Hgb Hct MCH RDW Lymph % (Auto) Lymph # (Auto) [place] # (Auto) Seg Neutrophils % Seg Neutrophils # POC ABG pO2 ABG Hemoglobin ABG Oxyhemoglobin ABG Sodium ABG Potassium ABG Chloride ABG Glucose Sodium Potassium Chloride 95.6 L Carbon Dioxide BUN 52 H Creatinine 6.4 H Glucose 190 H POC Glucose 140 H 126 H Alkaline Phosphatase 208 H Ammonia Troponin T C-Reactive Protein Albumin 3.6 L Triglycerides HDL Cholesterol Arterial Blood Glucose Arterial Blood Ionized Calcium 03/10/21 03/10/21 05:44 05:44 WBC 12.6 H RBC 3.11 L Hgb 8.8 L Hct 26.7 L MCH RDW 16.9 H Lymph % (Auto) Lymph # (Auto) [place] # (Auto) Seg Neutrophils % Seg Neutrophils # POC ABG pO2 ABG Hemoglobin ABG Oxyhemoglobin ABG Sodium ABG Potassium ABG Chloride ABG Glucose Sodium Potassium Chloride 94.6 L Carbon Dioxide 20 L BUN 76 H Creatinine 8.6 H Glucose 172 H POC Glucose Alkaline Phosphatase 198 H Ammonia Troponin T C-Reactive Protein Albumin 3.7 L Triglycerides HDL Cholesterol Arterial Blood Glucose Arterial Blood Ionized Calcium
[2021-03-10] MEDS: INSULIN LISPRO 100 UNIT/ML SUB-Q SCH ×2 (12:45→17:42)
[2021-03-10] MEDS ORDERED: LORazepam 2 MG/ML VIAL IM NR (13:00)
[2021-03-10] MEDS: CLOPIDOGREL 75 MG TAB PO SCH (14:34)
--- NOTE | 2021-03-10 15:20 | Post Operative Note ---
Pre-op diagnosis: Acute encephalopathy Post-op diagnosis: same Procedure: Procedure: Central line placement CONSENT: Consent was obtained from daughter Samuel prior to the procedure. Indications, risks, and benefits were explained at length. The procedure was performed due to poor IV access and observance of right arm precautions. PROCEDURE SUMMARY: A time out was performed. My hands were washed immediately prior to the procedure. I wore a surgical cap, mask with protective eyewear, full gown and st erile gloves throughout the procedure. The patient was placed in Trendelenburg position. Right neck region was prepped using chlorhexidine scrub and draped in sterile fashion using a full drape and sterile probe cover and sterile gel employed. The medial and lateral heads of the sternocleidomastoid muscle were identified as was the carotid pulse. The Internal Jugular vein was identified using the ultrasound. Anesthesia was achieved over the vein using 1% lidocaine. Using real-time out of plane guidance, the introducer needle was inserted into the right internal Jugular vein under direct ultrasound visualization. Venous blood was withdrawn. The syringe was removed and a guidewire was advanced into the introducer needle. The guidewire was visualized in the Internal Jugular Vein by ultrasound. A small incision was made at the skin surface with a scalpel and the introducer needle was exchanged for a dilator over the guidewire. After appropriate dilation was obtained, the dilator was exchanged over the wire for a 7 [place] central venous catheter. The wire was removed and the catheter was sutured in place. A sterile sorbaview shield was placed over the catheter at the insertion site. The patient tolerated the procedure without any hemodynamic compromise. At time of procedure completion, all ports aspirated and flushed properly. Post-procedure chest x-ray is pending at this time. Estimated blood loss is <5cc. Surgeon: MIC AVILA Estimated blood loss: minimal Pathology: none Condition: other (Guarded) Disposition: ICU
[2021-03-10] MEDS: LACOSAMIDE 100 MG in SODIUM CHLORIDE 0.9% 100 ML IV SCH (15:25)
--- NOTE | 2021-03-10 16:30 | Progress Note ---
<CANDIDO RODRIGUEZ - Last Filed: 03/10/21 19:37> Assessment and Plan Assessment and plan: 50-year-old female with known history of end-stage renal disease on HD, seizure disorder, CVA with left side deficits, diabetes mellitus, and hypertension with acute encephalophy and electrolyte imbalance secondary to uremia. #Acute metabolic encephalopathy 2/2 to uremia # Hx of CVA with Lt. deficits - 03/05 CT head and MRI w/o contrast showed no acute abnormalities --remote lacunar infarct BG and brain stem. - Cont. dilantin, Keppra, Vimpat per Neuro - PRN ativan for seizure - Seizure precaution - Neuro on consult #End stage renal disease on dialysis- Pt. is anuric #Hyperkalemia-improving #Hyponatremia- resolved - Possible HD today - Continue hemodialysis Per Nephro - Follow up labs in the am #Cardio: elevated Troponin possibly Renal related; H/o HTN - Troponin:0.034, 0.032; 03/05 EKG noted - Hypertensive today, will restart home antihypertensive - Continue clonidine patch and PRN hydralazine for SBP>160 ID: - Patient remains afebrile, VSS, - Mild leukocytosis noted, will continue to monitor - Am labs ordered #Endo: H/o T2DM (type 2 diabetes mellitus) - Cont Humalog sliding scale low-dose. #Advance Care Planning - Discharge planning ongoing - PT/OT eval and treat #DVT prophylaxis: SCDs, Heparin SubQ q8hrs History Interval history: Patient was seen and examined in the ED. Per RN patient more agitated and restle ss overnight, patient pulled out DHT, RUE wrist restraints initiated. Upon assessment patient is awake and confused only AAO to self and place. Hypertensive today PRN hyralazine for SBP greater than 160. Plan to restart home antihypertensive today. DHT was reinserted, TF order placed. PIV access issue today, RIJ CVC was inserted by . Patient remains afebrile, continue to monitor leukocytosis and kidney function. Am labs ordered. Hospitalist Physical - Constitutional Vitals: Temp Pulse Resp BP Pulse Ox 98.2 F 107 H 13 134/95 99 03/09/21 20:00 03/10/21 15:45 03/10/21 15:45 03/10/21 15:45 03/10/21 15:45 General appearance: Present: no acute distress, well-nourished - EENT Eyes: Present: PERRL, EOM intact ENT: hearing intact - Respiratory Respiratory effort: normal Respiratory: bilateral: diminished - Cardiovascular Rhythm: regular Heart Sounds: Present: S1 & S2 - Extremities Extremities: no ischemia, pulses intact, pulses symmetrical Extremity abnormal: edema - Peripheral Assessment Left Arm Edema Type: Pitting Edema Degree: 2+ Skin Temperature: Warm Peripheral Pulses: within normal limits - Abdominal General gastrointestinal: soft, non-tender, non-distended, normal bowel sounds - Integumentary Integumentary: Present: warm, dry - Psychiatric Psychiatric: cooperative, other (Confused) - Neurologic Neurologic: other (Lt. side deficit from old CVA) HEART Score - HEART Score Troponin: Troponin T 0.032 ng/mL (0.00-0.029) H 03/05/21 15:46 Results - Labs CBC & Chem 7: 03/10/21 05:44 03/10/21 05:44 Labs: Laboratory Last Values WBC 12.6 K/mm3 (4.5-11.0) H 03/10/21 05:44 RBC 3.11 M/mm3 (3.65-5.03) L 03/10/21 05:44 Hgb 8.8 gm/dl (10.1-14.3) L 03/10/21 05:44 Hct 26.7 % (30.3-42.9) L 03/10/21 05:44 MCV 86 fl (79-97) 03/10/21 05:44 MCH 28 pg (28-32) 03/10/21 05:44 MCHC 33 % (30-34) 03/10/21 05:44 RDW 16.9 % (13.2-15.2) H 03/10/21 05:44 Plt Count 150 K/mm3 (140-440) 03/10/21 05:44 Lymph % (Auto) 6.3 % (13.4-35.0) L 03/06/21 05:07 [place] % (Auto) 6.0 % (0.0-7.3) 03/06/21 05:07 Eos % (Auto) 0.2 % (0.0-4.3) 03/06/21 05:07 Baso % (Auto) 0.3 % (0.0-1.8) 03/06/21 05:07 Lymph # (Auto) 0.9 K/mm3 (1.2-5.4) L 03/06/21 05:07 [place] # (Auto) 0.9 K/mm3 (0.0-0.8) H 03/06/21 05:07 Eos # (Auto) 0.0 K/mm3 (0.0-0.4) 03/06/21 05:07 Baso # (Auto) 0.1 K/mm3 (0.0-0.1) 03/06/21 05:07 Seg Neutrophils % 87.2 % (40.0-70.0) H 03/06/21 05:07 Seg Neutrophils # 12.9 K/mm3 (1.8-7.7) H 03/06/21 05:07 ESR 78 mm/Hr (0-20) 03/06/21 15:29 PT 14.5 Sec. (12.2-14.9) 03/06/21 05:07 INR 1.08 (0.87-1.13) 03/06/21 05:07 ABG pH 7.431 (7.320-7.450) 03/05/21 16:15 POC ABG pCO2 37.1 mmHg (32.0-48.0) 03/05/21 16:15 POC ABG pO2 80.0 mmHg (83-108) L 03/05/21 16:15 POC ABG HCO3 24.1 03/05/21 16:15 ABG O2 Saturation 94.6 (0-100) 03/05/21 16:15 POC ABG Base Excess 0 03/05/21 16:15 ABG Hemoglobin 11.0 (12.0-17.5) L 03/05/21 16:15 ABG Oxyhemoglobin 93.3 (94-98) L 03/05/21 16:15 ABG Methemoglobin 0.3 (0.0-1.5) 03/05/21 16:15 ABG Sodium 131.5 mmol/L (136.0-145.0) L 03/05/21 16:15 ABG Potassium 5.1 mmol/L (3.40-4.50) H 03/05/21 16:15 ABG Chloride 95.0 mmol/L (98-107) L 03/05/21 16:15 ABG Glucose 302 mg/dL (65-95) H 03/05/21 16:15 Carboxyhemoglobin 1.1 (0.5-1.5) 03/05/21 16:15 FiO2 % 21.0 03/05/21 16:15 Sodium 143 mmol/L (137-145) 03/10/21 05:44 Potassium 4.9 mmol/L (3.6-5.0) 03/10/21 05:44 Chloride 94.6 mmol/L (98-107) L 03/10/21 05:44 Carbon Dioxide 20 mmol/L (22-30) L 03/10/21 05:44 Anion Gap 33 mmol/L 03/10/21 05:44 BUN 76 mg/dL (7-17) H 03/10/21 05:44 Creatinine 8.6 mg/dL (0.6-1.2) H 03/10/21 05:44 Estimated GFR 6 ml/min 03/10/21 05:44 BUN/Creatinine Ratio 9 % 03/10/21 05:44 Glucose 172 mg/dL (65-100) H 03/10/21 05:44 POC Glucose 201 mg/dL (70-105) H 03/10/21 12:39 Calcium 9.3 mg/dL (8.4-10.2) 03/10/21 05:44 Total Bilirubin 0.30 mg/dL (0.1-1.2) 03/10/21 05:44 AST 27 units/L (5-40) 03/10/21 05:44 ALT 12 units/L (7-56) 03/10/21 05:44 Alkaline Phosphatase 198 units/L (35-129) H 03/10/21 05:44 Ammonia 46.0 umol/L (25-60) 03/06/21 14:09 Troponin T 0.032 ng/mL (0.00-0.029) H 03/05/21 15:46 C-Reactive Protein 7.70 mg/dL (0.00-1.30) H 03/06/21 14:09 Total Protein 6.8 g/dL (6.3-8.2) 03/10/21 05:44 Albumin 3.7 g/dL (3.9-5) L 03/10/21 05:44 Albumin/Globulin Ratio 1.2 % 03/10/21 05:44 Triglycerides 363 mg/dL (2-149) H 03/05/21 04:39 Cholesterol 154 mg/dL (50-199) 03/05/21 04:39 LDL Cholesterol Direct 73 mg/dL (50-130) 03/05/21 04:39 HDL Cholesterol 34 mg/dL (40-59) L 03/05/21 04:39 Cholesterol/HDL Ratio 4.52 % 03/05/21 04:39 Vitamin B12 846.0 pg/mL (211-911) 03/06/21 14:09 TSH 2.530 mlU/mL (0.270-4.200) 03/06/21 14:09 Arterial Blood Glucose 302 mg/dL (65-95) H 03/05/21 16:15 Arterial Blood Ionized Calcium 4.1 mg/dL (4.6-5.3) L 03/05/21 16:15 Phenytoin 13.8 ug/mL (10.0-20.0) 03/10/21 15:55 Levetiracetam 32.3 mcg/mL (12.0-46.0) 03/05/21 15:46 Hepatitis A IgM Ab Non-reactive (NonReactive) 03/06/21 08:37 Hep Bs Antigen Nonreactive (Negative) 03/06/21 08:37 Hep B Core IgM Ab Non-reactive (NonReactive) 03/06/21 08:37 Hepatitis C Antibody Non-reactive (NonReactive) 03/06/21 08:37 Active Medications - Current Medications Current Medications: Generic Name Dose Route Start Last Admin Trade Name Freq PRN Reason Stop Dose Admin Acetaminophen 650 mg 03/05/21 06:13 Acetaminophen 650 Mg Rect Supp MI Q6H PRN Pain MILD(1-3)/Fever >100.5/LEE Lipase/Protease/Amylase 1 each 03/09/21 15:54 Lipase 10,500/Protease 25,000/Amylase 43,750 (Units) Dr Gongora FEEDTUBE PRN PRN For Clogged Feeding Tube Atorvastatin Calcium 40 mg 03/10/21 22:00 Atorvastatin 40 Mg Tab PO QHS LORENE Clonidine HCl 0.2 mg 03/09/21 11:00 03/09/21 14:47 Clonidine Tts 0.2 Mg/24 Hr Patch TD Not Given Mo [facility] Clopidogrel Bisulfate 75 mg 03/10/21 14:00 03/10/21 14:34 Clopidogrel 75 Mg Tab PO 75 mg QDAY LORENE Administration Dextrose 0 ml 03/08/21 12:30 Dextrose 50% In Water (25gm) 50 Ml Syringe IV ONCE PRN Hypoglycemia Heparin Sodium (Porcine) 5,000 unit 03/05/21 14:00 03/10/21 13:45 Heparin 5,000 Unit/1 Ml Vial SUB-Q 5,000 unit Q8HR LORENE Administration Hydralazine HCl 10 mg 03/05/21 06:43 03/10/21 01:38 Hydralazine 20 Mg/1 Ml Inj IV 10 mg Q4HR PRN Administration Blood Pressure Sodium Chloride 100 mls @ 999 mls/hr 03/09/21 10:02 Nacl 0.9% IV DESIREE PRN Hypotension Lacosamide 100 mg/ Sodium 110 mls @ 100 mls/hr 03/10/21 14:00 03/10/21 15:25 Chloride IV 100 mls/hr Q12H LORENE Administration Levetiracetam 1,000 mg/ 110 mls @ 400 mls/hr 03/11/21 10:00 Dextrose IV DAILY [facility] Insulin Human Lispro 0 unit 03/10/21 12:00 03/10/21 12:45 Insulin Lispro 100 Unit/Ml SUB-Q 3 unit Q6HR LORENE Administration Protocol Lorazepam 2 mg 03/05/21 07:00 03/10/21 15:27 Lorazepam 2 Mg/Ml Vial IV 2 mg Q4H PRN Administration Seizures Lorazepam 2 mg 03/10/21 13:00 Lorazepam 2 Mg/Ml Vial IM 03/10/21 19:00 SIZING SPONGER NR Magnesium Hydroxide 30 ml 03/05/21 06:13 Magnesium Hydroxide (Mom) Oral Liqd Udc PO Q4H PRN Constipation Morphine Sulfate 2 mg 03/05/21 06:13 Morphine 2 Mg/1 Ml Inj IV Q4H PRN Pain, Moderate (4-6) Morphine Sulfate 4 mg 03/05/21 06:13 Morphine 4 Mg/1 Ml Inj IV Q4H PRN Pain , Severe (7-10) Phenytoin 100 mg 03/05/21 22:00 03/10/21 15:25 Phenytoin 100 Mg/2 Ml Vial IV 100 mg Q8HR LORENE Administration Simple Syrup 15 ml 03/09/21 15:54 Simple Syrup 15 Ml FEEDTUBE PRN PRN Hypoglycemia Simple Syrup 30 ml 03/09/21 15:54 Simple Syrup 15 Ml FEEDTUBE PRN PRN Hypoglycemia Simple Syrup 15 ml 03/10/21 11:44 Simple Syrup 15 Ml FEEDTUBE PRN PRN Hypoglycemia Simple Syrup 30 ml 03/10/21 11:44 Simple Syrup 15 Ml FEEDTUBE PRN PRN Hypoglycemia Sodium Bicarbonate 325 mg 03/09/21 15:54 Sodium Bicarbonate 325 Mg Tab FEEDTUBE PRN PRN For Clogged Feeding Tube Sodium Bicarbonate 325 mg 03/10/21 11:44 Sodium Bicarbonate 325 Mg Tab FEEDTUBE PRN PRN For Clogged Feeding Tube Sodium Chloride 10 ml 03/05/21 10:00 03/10/21 12:35 Sodium Chloride 0.9% 10 Ml Flush Syringe IV Not Given BID LORENE Sodium Chloride 10 ml 03/05/21 06:13 Sodium Chloride 0.9% 10 Ml Flush Syringe IV PRN PRN LINE FLUSH Nutrition/Malnutrition Assess - Dietary Evaluation Nutrition/Malnutrition Findings: Nutrition Notes Start: 03/05/21 06:45 Freq: Status: Active Protocol: Document 03/10/21 11:34 LAVELLE (Rec: 03/10/21 11:44 LAVELLE [id number]) Nutrition Notes Need for Assessment generated from: MD Order Initial or Follow up Assessment Current Diagnosis CKD (stage V CKD),Diabetes, Hypertension,Stroke Other Pertinent Diagnosis Acute encephalopathy, Uremia, Seizure d/o Current Diet NPO Labs/Tests BUN 76 Cr 8.6 BG 172 Pertinent Medications Dilantin q8h (via i.v.) Height 6 ft Weight 113.4 kg [place] Body Weight (kg) 72.72 BMI 33.9 Weight Status Obese Subjective/Other Information RD consulted for TF; pt remains in ED. Burn Absent Trauma Absent Minimum of two criteria No #1 Nutrition Diagnosis Inadequate oral intake Etiology encephalopthy As Evidenced by Signs and Symptoms pt with unsafe swallow at this time, per CLINICAL SPECIALIST VASCULAR evaluation Is patient on ventilator? No Is Patient Ambulatory and/or Out of Bed No REE-([facility]-confined to bed) 2248.548 Kcal/Kg value to use for calculation 17 Approximate Energy Requirements Using 1928 kcal/Kg Calculation Used for Recommendations Kcal/kg Additional Notes Pro needs >1.2g/kg adjBW: > 112g/day Fluid needs 1-1.5L/day Nutrition Intervention Nutrition Support: Nepro at 45ml/hr with 175ml water flush q4h. Kcal 1,944 Protein (gm) 87 Carbohydrates (gm) 174 Fat (gm) 104 Fluid (mL) 785 Fiber (gm) 14 Goal #1 TF tolerance Goal #2 TF to meet at least 75% energy and pro needs Anticipated Discharge Needs: Unable to identify at this time Follow-Up By: 03/12/21 Additional Comments F/U: new TF, transfer to medical floor <MIC AVILA - Last Filed: 03/11/21 07:17> Assessment and Plan Assessment and plan: The high probability of a clinically significant, sudden or life threatening deterioration of the [cardio, neuro] system(s) required my full and direct attention, intervention and personal management. The aggregate critical care time was [90] minutes. This time is in addition to time spent performing reported procedures but includes the following: [x] Data Review and interpretation [x] Patient assessment and monitoring of vital signs [x] Documentation [x] Medication orders and management I saw and evaluated the patient. Discussed with the nurse practitioner and agree with their findings and plan as documented in this note. Had extensive conversation with family regarding patient clinical picture and for consent for central line. Daughter Samuel was agreeable to procedures and all questions were answered to her satisfaction. Hospitalist Physical - Constitutional Vitals: Temp Pulse Resp BP Pulse Ox 98.0 F 116 H 12 145/78 99 03/10/21 19:10 03/11/21 06:20 03/11/21 06:20 03/11/21 06:20 03/11/21 06:20 HEART Score - HEART Score Troponin: Troponin T 0.032 ng/mL (0.00-0.029) H 03/05/21 15:46 Results - Labs CBC & Chem 7: 03/11/21 03:25 03/11/21 03:25 Labs: Laboratory Last Values WBC 14.4 K/mm3 (4.5-11.0) H 03/11/21 03:25 RBC 3.37 M/mm3 (3.65-5.03) L 03/11/21 03:25 Hgb 9.2 gm/dl (10.1-14.3) L 03/11/21 03:25 Hct 28.7 % (30.3-42.9) L 03/11/21 03:25 MCV 85 fl (79-97) 03/11/21 03:25 MCH 27 pg (28-32) L 03/11/21 03:25 MCHC 32 % (30-34) 03/11/21 03:25 RDW 17.1 % (13.2-15.2) H 03/11/21 03:25 Plt Count 181 K/mm3 (140-440) 03/11/21 03:25 Lymph % (Auto) 6.3 % (13.4-35.0) L 03/06/21 05:07 [place] % (Auto) 6.0 % (0.0-7.3) 03/06/21 05:07 Eos % (Auto) 0.2 % (0.0-4.3) 03/06/21 05:07 Baso % (Auto) 0.3 % (0.0-1.8) 03/06/21 05:07 Lymph # (Auto) 0.9 K/mm3 (1.2-5.4) L 03/06/21 05:07 [place] # (Auto) 0.9 K/mm3 (0.0-0.8) H 03/06/21 05:07 Eos # (Auto) 0.0 K/mm3 (0.0-0.4) 03/06/21 05:07 Baso # (Auto) 0.1 K/mm3 (0.0-0.1) 03/06/21 05:07 Seg Neutrophils % 87.2 % (40.0-70.0) H 03/06/21 05:07 Seg Neutrophils # 12.9 K/mm3 (1.8-7.7) H 03/06/21 05:07 ESR 78 mm/Hr (0-20) 03/06/21 15:29 PT 14.5 Sec. (12.2-14.9) 03/06/21 05:07 INR 1.08 (0.87-1.13) 03/06/21 05:07 ABG pH 7.431 (7.320-7.450) 03/05/21 16:15 POC ABG pCO2 37.1 mmHg (32.0-48.0) 03/05/21 16:15 POC ABG pO2 80.0 mmHg (83-108) L 03/05/21 16:15 POC ABG HCO3 24.1 03/05/21 16:15 ABG O2 Saturation 94.6 (0-100) 03/05/21 16:15 POC ABG Base Excess 0 03/05/21 16:15 ABG Hemoglobin 11.0 (12.0-17.5) L 03/05/21 16:15 ABG Oxyhemoglobin 93.3 (94-98) L 03/05/21 16:15 ABG Methemoglobin 0.3 (0.0-1.5) 03/05/21 16:15 ABG Sodium 131.5 mmol/L (136.0-145.0) L 03/05/21 16:15 ABG Potassium 5.1 mmol/L (3.40-4.50) H 03/05/21 16:15 ABG Chloride 95.0 mmol/L (98-107) L 03/05/21 16:15 ABG Glucose 302 mg/dL (65-95) H 03/05/21 16:15 Carboxyhemoglobin 1.1 (0.5-1.5) 03/05/21 16:15 FiO2 % 21.0 03/05/21 16:15 Sodium 136 mmol/L (137-145) L 03/11/21 03:25 Potassium 4.4 mmol/L (3.6-5.0) 03/11/21 03:25 Chloride 92.3 mmol/L (98-107) L 03/11/21 03:25 Carbon Dioxide 24 mmol/L (22-30) 03/11/21 03:25 Anion Gap 24 mmol/L 03/11/21 03:25 BUN 45 mg/dL (7-17) H 03/11/21 03:25 Creatinine 5.6 mg/dL (0.6-1.2) H 03/11/21 03:25 Estimated GFR 10 ml/min 03/11/21 03:25 BUN/Creatinine Ratio 8 % 03/11/21 03:25 Glucose 201 mg/dL (65-100) H 03/11/21 03:25 POC Glucose 214 mg/dL (70-105) H 03/11/21 05:45 Calcium 9.8 mg/dL (8.4-10.2) 03/11/21 03:25 Total Bilirubin 0.30 mg/dL (0.1-1.2) 03/11/21 03:25 AST 25 units/L (5-40) 03/11/21 03:25 ALT 13 units/L (7-56) 03/11/21 03:25 Alkaline Phosphatase 195 units/L (35-129) H 03/11/21 03:25 Ammonia 46.0 umol/L (25-60) 03/06/21 14:09 Troponin T 0.032 ng/mL (0.00-0.029) H 03/05/21 15:46 C-Reactive Protein 7.70 mg/dL (0.00-1.30) H 03/06/21 14:09 Total Protein 7.8 g/dL (6.3-8.2) 03/11/21 03:25 Albumin 3.8 g/dL (3.9-5) L 03/11/21 03:25 Albumin/Globulin Ratio 1.0 % 03/11/21 03:25 Triglycerides 363 mg/dL (2-149) H 03/05/21 04:39 Cholesterol 154 mg/dL (50-199) 03/05/21 04:39 LDL Cholesterol Direct 73 mg/dL (50-130) 03/05/21 04:39 HDL Cholesterol 34 mg/dL (40-59) L 03/05/21 04:39 Cholesterol/HDL Ratio 4.52 % 03/05/21 04:39 Vitamin B12 846.0 pg/mL (211-911) 03/06/21 14:09 TSH 2.530 mlU/mL (0.270-4.200) 03/06/21 14:09 Arterial Blood Glucose 302 mg/dL (65-95) H 03/05/21 16:15 Arterial Blood Ionized Calcium 4.1 mg/dL (4.6-5.3) L 03/05/21 16:15 Phenytoin 13.8 ug/mL (10.0-20.0) 03/10/21 15:55 Levetiracetam 32.3 mcg/mL (12.0-46.0) 03/05/21 15:46 Hepatitis A IgM Ab Non-reactive (NonReactive) 03/06/21 08:37 Hep Bs Antigen Nonreactive (Negative) 03/06/21 08:37 Hep B Core IgM Ab Non-reactive (NonReactive) 03/06/21 08:37 Hepatitis C Antibody Non-reactive (NonReactive) 03/06/21 08:37 Active Medications - Current Medications Current Medications: Generic Name Dose Route Start Last Admin Trade Name Freq PRN Reason Stop Dose Admin Acetaminophen 650 mg 03/05/21 06:13 Acetaminophen 650 Mg Rect Supp MI Q6H PRN Pain MILD(1-3)/Fever >100.5/LEE Amlodipine Besylate 10 mg 03/11/21 10:00 Amlodipine 10 Mg Tab PO DAILY LORENE Lipase/Protease/Amylase 1 each 03/09/21 15:54 Lipase 10,500/Protease 25,000/Amylase 43,750 (Units) Dr Gongora FEEDTUBE PRN PRN For Clogged Feeding Tube Atorvastatin Calcium 40 mg 03/10/21 22:00 03/10/21 21:54 Atorvastatin 40 Mg Tab PO 40 mg QHS LORENE Administration Clonidine HCl 0.2 mg 03/09/21 11:00 03/11/21 00:00 Clonidine Tts 0.2 Mg/24 Hr Patch TD 0.2 mg Mo LORENE Administration Clopidogrel Bisulfate 75 mg 03/10/21 14:00 03/10/21 14:34 Clopidogrel 75 Mg Tab PO 75 mg QDAY LORENE Administration Dextrose 0 ml 03/08/21 12:30 Dextrose 50% In Water (25gm) 50 Ml Syringe IV ONCE PRN Hypoglycemia Heparin Sodium (Porcine) 5,000 unit 03/05/21 14:00 03/11/21 05:54 Heparin 5,000 Unit/1 Ml Vial SUB-Q 5,000 unit Q8HR LORENE Administration Hydralazine HCl 10 mg 03/05/21 06:43 03/11/21 00:40 Hydralazine 20 Mg/1 Ml Inj IV 10 mg Q4HR PRN Administration Blood Pressure Sodium Chloride 100 mls @ 999 mls/hr 03/09/21 10:02 Nacl 0.9% IV DESIREE PRN Hypotension Lacosamide 100 mg/ Sodium 110 mls @ 100 mls/hr 03/10/21 14:00 03/11/21 03:00 Chloride IV 0 mls/hr Q12H LORENE Infusion Levetiracetam 1,000 mg/ 110 mls @ 400 mls/hr 03/11/21 10:00 Dextrose IV DAILY L[facility]ENE Insulin Human Lispro 0 unit 03/10/21 12:00 03/11/21 05:53 Insulin Lispro 100 Unit/Ml SUB-Q 3 unit Q6HR LORENE Administration Protocol Lorazepam 2 mg 03/05/21 07:00 03/10/21 15:27 Lorazepam 2 Mg/Ml Vial IV 2 mg Q4H PRN Administration Seizures Magnesium Hydroxide 30 ml 03/05/21 06:13 Magnesium Hydroxide (Mom) Oral Liqd Udc PO Q4H PRN Constipation Morphine Sulfate 2 mg 03/05/21 06:13 Morphine 2 Mg/1 Ml Inj IV Q4H PRN Pain, Moderate (4-6) Morphine Sulfate 4 mg 03/05/21 06:13 03/11/21 01:06 Morphine 4 Mg/1 Ml Inj IV 4 mg Q4H PRN Administration Pain , Severe (7-10) Phenytoin 100 mg 03/05/21 22:00 03/11/21 05:54 Phenytoin 100 Mg/2 Ml Vial IV 100 mg Q8HR LORENE Administration Simple Syrup 15 ml 03/09/21 15:54 Simple Syrup 15 Ml FEEDTUBE PRN PRN Hypoglycemia Simple Syrup 30 ml 03/09/21 15:54 Simple Syrup 15 Ml FEEDTUBE PRN PRN Hypoglycemia Simple Syrup 15 ml 03/10/21 11:44 Simple Syrup 15 Ml FEEDTUBE PRN PRN Hypoglycemia Simple Syrup 30 ml 03/10/21 11:44 Simple Syrup 15 Ml FEEDTUBE PRN PRN Hypoglycemia Sodium Bicarbonate 325 mg 03/09/21 15:54 Sodium Bicarbonate 325 Mg Tab FEEDTUBE PRN PRN For Clogged Feeding Tube Sodium Bicarbonate 325 mg 03/10/21 11:44 Sodium Bicarbonate 325 Mg Tab FEEDTUBE PRN PRN For Clogged Feeding Tube Sodium Chloride 10 ml 03/05/21 10:00 03/10/21 21:55 Sodium Chloride 0.9% 10 Ml Flush Syringe IV 10 ml BID LORENE Administration Sodium Chloride 10 ml 03/05/21 06:13 Sodium Chloride 0.9% 10 Ml Flush Syringe IV PRN PRN LINE FLUSH Nutrition/Malnutrition Assess - Dietary Evaluation Nutrition/Malnutrition Findings: Nutrition Notes Start: 03/05/21 06:45 Freq: Status: Active Protocol: Document 03/10/21 11:34 LAVELLE (Rec: 03/10/21 11:44 LAVELLE [id number]) Nutrition Notes Need for Assessment generated from: MD Order Initial or Follow up Assessment Current Diagnosis CKD (stage V CKD),Diabetes, Hypertension,Stroke Other Pertinent Diagnosis Acute encephalopathy, Uremia, Seizure d/o Current Diet NPO Labs/Tests BUN 76 Cr 8.6 BG 172 Pertinent Medications Dilantin q8h (via i.v.) Height 6 ft Weight 113.4 kg [place] Body Weight (kg) 72.72 BMI 33.9 Weight Status Obese Subjective/Other Information RD consulted for TF; pt remains in ED. Burn Absent Trauma Absent Minimum of two criteria No #1 Nutrition Diagnosis Inadequate oral intake Etiology encephalopthy As Evidenced by Signs and Symptoms pt with unsafe swallow at this time, per CLINICAL SPECIALIST VASCULAR evaluation Is patient on ventilator? No Is Patient Ambulatory and/or Out of Bed No REE-([facility]-confined to bed) 2248.548 Kcal/Kg value to use for calculation 17 Approximate Energy Requirements Using 1928 kcal/Kg Calculation Used for Recommendations Kcal/kg Additional Notes Pro needs >1.2g/kg adjBW: > 112g/day Fluid needs 1-1.5L/day Nutrition Intervention Nutrition Support: Nepro at 45ml/hr with 175ml water flush q4h. Kcal 1,944 Protein (gm) 87 Carbohydrates (gm) 174 Fat (gm) 104 Fluid (mL) 785 Fiber (gm) 14 Goal #1 TF tolerance Goal #2 TF to meet at least 75% energy and pro needs Anticipated Discharge Needs: Unable to identify at this time Follow-Up By: 03/12/21 Additional Comments F/U: new TF, transfer to medical floor
--- NOTE | 2021-03-10 17:43 | XRay Report ---
CHEST 1 VIEW 03/10/2021 4:33 PM INDICATION / CLINICAL INFORMATION: CVL placement. COMPARISON: 03/05/21. FINDINGS: SUPPORT DEVICES: There is a new right jugular CVL with the tip overlying the upper cavoatrial junctio n. There is a feeding tube coursing into the distal stomach with the tip not seen. HEART / MEDIASTINUM: The heart size and pulmonary vasculature are normal. LUNGS / PLEURA: There is minimal left basilar subsegmental atelectasis. The lungs are otherwise clear . No pleural effusion. No pneumothorax. ADDITIONAL FINDINGS: No significant additional findings. IMPRESSION: 1. Right jugular CVL placement without complication. 2. Minimal left basilar subsegmental atelectasis. Signer Name: Varun Villanueva MD Signed: 03/10/2021 5:38 PM Workstation Name: [id number]
--- NOTE | 2021-03-10 20:52 | Progress Note ---
Assessment and Plan - Patient Problems (1) Hyperkalemia Current Visit: No Status: Acute Plan to address problem: corrected with HD, cont 2g K renal diet. (2) ESRD (end stage renal disease) on dialysis Current Visit: Yes Status: Chronic Plan to address problem: cont HD on TTS schedule (3) Hyponatremia Current Visit: Yes Status: Acute Plan to address problem: Probably volume related. Improved with fluid removal on dialysis. (4) Metabolic acidosis Current Visit: Yes Status: Acute Plan to address problem: Uremic acidosis, to be corrected with HD (5) Hypertensive chronic kidney disease with stage 5 chronic kidney disease or end stage renal disease Current Visit: No Status: Chronic Plan to address problem: Blood pressure elevated on presentation now improving. Follow blood pressure on current medications (6) Seizure disorder Current Visit: No Status: Acute Plan to address problem: Continue management by neurologist. 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 Objective - Vital Signs Vital signs: Vital Signs - 12hr 03/10/21 03/10/21 03/10/21 08:54 09:01 09:15 Temperature Pulse Rate 104 H 113 H 106 H Respiratory 16 16 15 Rate Blood Pressure 155/51 155/51 Blood Pressure 155/51 [Left] O2 Sat by Pulse 95 97 95 Oximetry O2 Sat by Pulse Oximetry [ Anterior Bilateral] 03/10/21 03/10/21 03/10/21 09:31 09:45 10:01 Temperature Pulse Rate 109 H 104 H 113 H Respiratory 13 15 16 Rate Blood Pressure 170/68 170/68 163/70 Blood Pressure [Left] O2 Sat by Pulse 96 93 96 Oximetry O2 Sat by Pulse Oximetry [ Anterior Bilateral] 03/10/21 03/10/21 03/10/21 10:15 10:31 10:45 Temperature Pulse Rate 113 H 112 H 113 H Respiratory 14 17 13 Rate Blood Pressure 163/70 181/64 181/64 Blood Pressure [Left] O2 Sat by Pulse 97 94 95 Oximetry O2 Sat by Pulse Oximetry [ Anterior Bilateral] 03/10/21 03/10/21 03/10/21 11:01 11:15 11:31 Temperature Pulse Rate 113 H 111 H 114 H Respiratory 14 14 17 Rate Blood Pressure 180/65 180/65 187/69 Blood Pressure [Left] O2 Sat by Pulse 97 96 96 Oximetry O2 Sat by Pulse Oximetry [ Anterior Bilateral] 03/10/21 03/10/21 03/10/21 11:45 12:01 12:15 Temperature Pulse Rate 113 H 113 H 112 H Respiratory 14 17 11 L Rate Blood Pressure 187/69 187/60 187/60 Blood Pressure [Left] O2 Sat by Pulse 97 98 99 Oximetry O2 Sat by Pulse Oximetry [ Anterior Bilateral] 03/10/21 03/10/21 03/10/21 12:31 12:45 13:01 Temperature Pulse Rate 101 H 113 H 114 H Respiratory 14 14 14 Rate Blood Pressure 187/60 189/94 191/97 Blood Pressure 189/94 [Left] O2 Sat by Pulse 99 98 97 Oximetry O2 Sat by Pulse Oximetry [ Anterior Bilateral] 03/10/21 03/10/21 03/10/21 13:15 13:31 13:45 Temperature Pulse Rate 114 H 112 H 110 H Respiratory 22 15 17 Rate Blood Pressure 191/97 199/93 199/93 Blood Pressure [Left] O2 Sat by Pulse 98 99 98 Oximetry O2 Sat by Pulse Oximetry [ Anterior Bilateral] 03/10/21 03/10/21 03/10/21 14:01 14:15 14:31 Temperature Pulse Rate 114 H 101 H 112 H Respiratory 14 15 10 L Rate Blood Pressure 198/96 198/96 186/80 Blood Pressure [Left] O2 Sat by Pulse 98 99 98 Oximetry O2 Sat by Pulse Oximetry [ Anterior Bilateral] 03/10/21 03/10/21 03/10/21 14:46 15:01 15:15 Temperature Pulse Rate 106 H 115 H Respiratory 16 19 13 Rate Blood Pressure 186/80 186/80 Blood Pressure [Left] O2 Sat by Pulse 98 98 98 Oximetry O2 Sat by Pulse Oximetry [ Anterior Bilateral] 03/10/21 03/10/21 03/10/21 15:31 15:45 16:00 Temperature 98.2 F Pulse Rate 107 H 107 H Respiratory 13 13 11 L Rate Blood Pressure 116/94 134/95 100/43 Blood Pressure [Left] O2 Sat by Pulse 98 99 98 Oximetry O2 Sat by Pulse 99 Oximetry [ Anterior Bilateral] 03/10/21 03/10/21 03/10/21 16:15 16:30 16:31 Temperature Pulse Rate 114 H 113 H 117 H Respiratory 15 13 Rate Blood Pressure 146/123 144/102 144/122 Blood Pressure [Left] O2 Sat by Pulse 99 99 Oximetry O2 Sat by Pulse Oximetry [ Anterior Bilateral] 03/10/21 03/10/21 03/10/21 16:45 17:00 17:01 Temperature Pulse Rate 120 H 110 H 120 H Respiratory 17 19 Rate Blood Pressure 128/83 112/63 112/63 Blood Pressure [Left] O2 Sat by Pulse 99 98 Oximetry O2 Sat by Pulse Oximetry [ Anterior Bilateral] 03/10/21 03/10/21 03/10/21 17:15 17:30 17:31 Temperature Pulse Rate 117 H 116 H 114 H Respiratory 22 20 Rate Blood Pressure 121/45 117/54 120/61 Blood Pressure [Left] O2 Sat by Pulse 99 100 Oximetry O2 Sat by Pulse Oximetry [ Anterior Bilateral] 03/10/21 03/10/21 03/10/21 17:45 18:00 18:01 Temperature Pulse Rate 117 H 117 H 116 H Respiratory 18 20 Rate Blood Pressure 121/45 141/125 121/45 Blood Pressure [Left] O2 Sat by Pulse 98 98 Oximetry O2 Sat by Pulse Oximetry [ Anterior Bilateral] 03/10/21 03/10/21 03/10/21 18:15 19:01 19:15 Temperature Pulse Rate 117 H 116 H 115 H Respiratory 19 16 21 Rate Blood Pressure 141/125 99/78 120/72 Blood Pressure [Left] O2 Sat by Pulse 99 99 100 Oximetry O2 Sat by Pulse Oximetry [ Anterior Bilateral] 03/10/21 03/10/21 03/10/21 19:31 19:45 20:31 Temperature Pulse Rate 115 H 116 H 111 H Respiratory 22 13 16 Rate Blood Pressure 140/65 142/121 151/68 Blood Pressure [Left] O2 Sat by Pulse 99 100 96 Oximetry O2 Sat by Pulse Oximetry [ Anterior Bilateral] 03/10/21 20:42 Temperature Pulse Rate Respiratory Rate Blood Pressure 162/69 Blood Pressure [Left] O2 Sat by Pulse Oximetry O2 Sat by Pulse Oximetry [ Anterior Bilateral] - General Appearance General appearance: well-developed, well-nourished, appears stated age EENT: ATNC, PERRL, mucous membranes moist Neck: no JVD Respiratory: Present: Decreased Breath Sounds Cardiology: regular, S1S2 Gastrointestinal: normoactive bowel sounds Integumentary: no rash Neurologic: no focal deficit, alert and oriented x3, strength 5/5, CN 3-12 intact Psychiatric: mood/affect appropriate, cooperative - Lab 03/10/21 05:44 03/10/21 05:44 Most recent lab results ABG pH 7.431 (7.320-7.450) 03/05/21 16:15 ABG O2 Saturation 94.6 (0-100) 03/05/21 16:15 Calcium 9.3 mg/dL (8.4-10.2) 03/10/21 05:44 Medications & Allergies - Medications Allergies/Adverse Reactions: Allergies ibuprofen Allergy (Verified 06/24/17 17:09) Rash Home Medications: Home Medications Medication Instructions Recorded Confirmed Last Taken Type Gabapentin 600 mg PO TID 08/27/15 10/31/18 08/09/17 History Ferric Citrate (Nf) [Auryxia] 210 mg PO TID 10/31/18 10/31/18 Unknown History Insulin Aspart (Nf) [NovoLOG 15 - 20 units SUB-Q DAILY@0900 10/31/18 10/31/18 Unknown History Flexpen] Insulin Aspart (Nf) [NovoLOG 15 - 20 units SUB-Q DAILY@1530 10/31/18 10/31/18 Unknown History Flexpen] Insulin Glargine,Hum.rec.anlog 15 - 20 units SUB-Q DAILY@2100 PRN 10/31/18 10/31/18 Unknown History [Lantus Solostar] AtorvaSTATin [Lipitor] 40 mg PO DAILY #30 tablet 11/02/18 Unknown Rx amLODIPine 10 mg PO DAILY #30 tablet 11/02/18 Unknown Rx cloNIDine [Catapres] 0.1 mg PO Q8HR #90 tablet 11/02/18 Unknown Rx levETIRAcetam [Keppra TAB] 750 mg PO BID #60 tablet 11/02/18 Unknown Rx oxyCODONE /ACETAMINOPHEN [Percocet 1 tab PO Q6H PRN #8 tablet 11/02/18 Unknown Rx 5/325 mg] Active Medications: Generic Name Dose Route Start Last Admin Trade Name Freq PRN Reason Stop Dose Admin Acetaminophen 650 mg 03/05/21 06:13 Acetaminophen 650 Mg Rect Supp [place] Q6H PRN Pain MILD(1-3)/Fever >100.5/LEE Amlodipine Besylate 10 mg 03/11/21 10:00 Amlodipine 10 Mg Tab PO DAILY LORENE Lipase/Protease/Amylase 1 each 03/09/21 15:54 Lipase 10,500/Protease 25,000/Amylase 43,750 (Units) Dr Gongora FEEDTUBE PRN PRN For Clogged Feeding Tube Atorvastatin Calcium 40 mg 03/10/21 22:00 Atorvastatin 40 Mg Tab PO QHS LORENE Clonidine HCl 0.2 mg 03/09/21 11:00 03/09/21 14:47 Clonidine Tts 0.2 Mg/24 Hr Patch TD Not Given Mo LORENE Clopidogrel Bisulfate 75 mg 03/10/21 14:00 03/10/21 14:34 Clopidogrel 75 Mg Tab PO 75 mg QDAY LORENE Administration Dextrose 0 ml 03/08/21 12:30 Dextrose 50% In Water (25gm) 50 Ml Syringe IV ONCE PRN Hypoglycemia Heparin Sodium (Porcine) 5,000 unit 03/05/21 14:00 03/10/21 13:45 Heparin 5,000 Unit/1 Ml Vial SUB-Q 5,000 unit Q8HR LORENE Administration Hydralazine HCl 10 mg 03/05/21 06:43 03/10/21 20:42 Hydralazine 20 Mg/1 Ml Inj IV 10 mg Q4HR PRN Administration Blood Pressure Sodium Chloride 100 mls @ 999 mls/hr 03/09/21 10:02 Nacl 0.9% IV DESIREE PRN Hypotension Lacosamide 100 mg/ Sodium 110 mls @ 100 mls/hr 03/10/21 14:00 03/10/21 15:25 Chloride IV 100 mls/hr Q12H LORENE Administration Levetiracetam 1,000 mg/ 110 mls @ 400 mls/hr 03/11/21 10:00 Dextrose IV DAILY LORENE Insulin Human Lispro 0 unit 03/10/21 12:00 03/10/21 17:42 Insulin Lispro 100 Unit/Ml SUB-Q 2 unit Q6HR LORENE Administration Protocol Lorazepam 2 mg 03/05/21 07:00 03/10/21 15:27 Lorazepam 2 Mg/Ml Vial IV 2 mg Q4H PRN Administration Seizures Magnesium Hydroxide 30 ml 03/05/21 06:13 Magnesium Hydroxide (Mom) Oral Liqd Udc PO Q4H PRN Constipation Morphine Sulfate 2 mg 03/05/21 06:13 Morphine 2 Mg/1 Ml Inj IV Q4H PRN Pain, Moderate (4-6) Morphine Sulfate 4 mg 03/05/21 06:13 Morphine 4 Mg/1 Ml Inj IV Q4H PRN Pain , Severe (7-10) Phenytoin 100 mg 03/05/21 22:00 03/10/21 15:25 Phenytoin 100 Mg/2 Ml Vial IV 100 mg Q8HR LORENE Administration Simple Syrup 15 ml 03/09/21 15:54 Simple Syrup 15 Ml FEEDTUBE PRN PRN Hypoglycemia Simple Syrup 30 ml 03/09/21 15:54 Simple Syrup 15 Ml FEEDTUBE PRN PRN Hypoglycemia Simple Syrup 15 ml 03/10/21 11:44 Simple Syrup 15 Ml FEEDTUBE PRN PRN Hypoglycemia Simple Syrup 30 ml 03/10/21 11:44 Simple Syrup 15 Ml FEEDTUBE PRN PRN Hypoglycemia Sodium Bicarbonate 325 mg 03/09/21 15:54 Sodium Bicarbonate 325 Mg Tab FEEDTUBE PRN PRN For Clogged Feeding Tube Sodium Bicarbonate 325 mg 03/10/21 11:44 Sodium Bicarbonate 325 Mg Tab FEEDTUBE PRN PRN For Clogged Feeding Tube Sodium Chloride 10 ml 03/05/21 10:00 03/10/21 12:35 Sodium Chloride 0.9% 10 Ml Flush Syringe IV Not Given BID LORENE Sodium Chloride 10 ml 03/05/21 06:13 Sodium Chloride 0.9% 10 Ml Flush Syringe IV PRN PRN LINE FLUSH
[2021-03-11] MEDS: cloNIDine TTS 0.2 MG/24 HR PATCH TD SCH
[2021-03-11] MEDS: hydrALAZINE 20 MG/1 ML INJ IV PRN (00:40)
[2021-03-11] MEDS: LACOSAMIDE 100 MG in SODIUM CHLORIDE 0.9% 100 ML IV SCH ×2 (02:00→20:44)
[2021-03-11 03:54] LABS: Hematocrit 28.7 % (30.3-42.9); Hemoglobin 9.2 gm/dl (10.1-14.3); Mean Corpuscular HGB Conc 32 % (30-34); Mean Corpuscular Volume 85 fl (79-97); Platelet Count 181 K/mm3 (140-440); Red Blood Count 3.37 M/mm3 (3.65-5.03); Red Cell Distribution Width 17.1 % (13.2-15.2)
[2021-03-11 04:04] LABS: Albumin 3.8 g/dL (3.9-5); Calcium 9.8 mg/dL (8.4-10.2)
[2021-03-11] MEDS: INSULIN LISPRO 100 UNIT/ML SUB-Q SCH ×5 (05:53→21:42)
[2021-03-11] MEDS: HEPARIN 5,000 UNIT/1 ML VIAL SUB-Q SCH ×3 (05:54→21:15)
[2021-03-11] MEDS: PHENYTOIN 100 MG/2 ML VIAL IV SCH ×3 (05:54→21:16)
[2021-03-11] MEDS ORDERED: levETIRAcetam 1,000 MG in DEXTROSE 5% IN WATER 100 ML IV SCH (10:00)
[2021-03-11] MEDS: CLOPIDOGREL 75 MG TAB PO SCH (10:49)
[2021-03-11] MEDS: amLODIPine 10 MG TAB PO SCH (10:49)
--- NOTE | 2021-03-11 10:50 | Progress Note ---
Assessment and Plan - Patient Problems (1) ESRD (end stage renal disease) on dialysis Current Visit: Yes Status: Chronic Plan to address problem: cont HD on TTS schedule (2) Hyperkalemia Current Visit: No Status: Acute Plan to address problem: corrected with HD, cont 2g K renal diet. (3) Hyponatremia Current Visit: Yes Status: Acute Plan to address problem: Probably volume related. Improved with fluid removal on dialysis. (4) Metabolic acidosis Current Visit: Yes Status: Acute Plan to address problem: Uremic acidosis, to be corrected with HD (5) Hypertensive chronic kidney disease with stage 5 chronic kidney disease or end stage renal disease Current Visit: No Status: Chronic Plan to address problem: Blood pressure elevated on presentation now improving. Follow blood pressure on current medications (6) Seizure disorder Current Visit: No Status: Acute Plan to address problem: Continue management by neurologist. 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 Chronic kidney disease stage: on chronic dialysis Qualified Code(s): E11.22 - Type 2 diabetes mellitus with diabetic chronic kidney disease; N18.6 - End stage renal disease; Z79.4 - intermediate (current) use of insulin; Z99.2 - Dependence on renal dialysis Plan to address problem: Blood sugar management by primary attending Subjective Date of service: 03/11/21 Principal diagnosis: Change mentation , ESRD,Hx of seizure Interval history: Pt awake, alert, in no acute distress, denies CP, SOB, palpitations, fever, chills, n/v/d Objective - Vital Signs Vital signs: Vital Signs - 12hr 03/10/21 03/11/21 03/11/21 23:00 00:00 00:40 Pulse Rate 119 H Respiratory 18 Rate Blood Pressure 179/68 204/60 Blood Pressure 163/92 179/68 [Left] O2 Sat by Pulse 99 Oximetry 03/11/21 03/11/21 03/11/21 01:00 01:06 02:00 Pulse Rate Respiratory 15 Rate Blood Pressure Blood Pressure 130/46 152/70 [Left] O2 Sat by Pulse Oximetry 03/11/21 03/11/21 03/11/21 03:01 04:33 05:01 Pulse Rate 110 H 111 H Respiratory 13 13 Rate Blood Pressure 152/70 157/84 Blood Pressure 142/70 [Left] O2 Sat by Pulse 99 99 Oximetry 03/11/21 06:20 Pulse Rate 116 H Respiratory 12 Rate Blood Pressure 145/78 Blood Pressure [Left] O2 Sat by Pulse 99 Oximetry - General Appearance General appearance: well-developed, well-nourished, appears stated age EENT: ATNC, PERRL, mucous membranes moist Neck: no JVD Respiratory: Present: Clear to Ascultation Cardiology: regular, S1S2 Gastrointestinal: normoactive bowel sounds Integumentary: no rash Neurologic: no focal deficit, CN 3-12 intact - Lab 03/11/21 03:25 03/11/21 03:25 Most recent lab results ABG pH 7.431 (7.320-7.450) 03/05/21 16:15 ABG O2 Saturation 94.6 (0-100) 03/05/21 16:15 Calcium 9.8 mg/dL (8.4-10.2) 03/11/21 03:25 Medications & Allergies - Medications Allergies/Adverse Reactions: Allergies ibuprofen Allergy (Verified 06/24/17 17:09) Rash Home Medications: Home Medications Medication Instructions Recorded Confirmed Last Taken Type Gabapentin 600 mg PO TID 08/27/15 10/31/18 08/09/17 History Ferric Citrate (Nf) [Auryxia] 210 mg PO TID 10/31/18 10/31/18 Unknown History Insulin Aspart (Nf) [NovoLOG 15 - 20 units SUB-Q DAILY@0900 10/31/18 10/31/18 Unknown History Flexpen] Insulin Aspart (Nf) [NovoLOG 15 - 20 units SUB-Q DAILY@1530 10/31/18 10/31/18 Unknown History Flexpen] Insulin Glargine,Hum.rec.anlog 15 - 20 units SUB-Q DAILY@2100 PRN 10/31/18 10/31/18 Unknown History [Lantus Solostar] AtorvaSTATin [Lipitor] 40 mg PO DAILY #30 tablet 11/02/18 Unknown Rx amLODIPine 10 mg PO DAILY #30 tablet 11/02/18 Unknown Rx cloNIDine [Catapres] 0.1 mg PO Q8HR #90 tablet 11/02/18 Unknown Rx levETIRAcetam [Keppra TAB] 750 mg PO BID #60 tablet 11/02/18 Unknown Rx oxyCODONE /ACETAMINOPHEN [Percocet 1 tab PO Q6H PRN #8 tablet 11/02/18 Unknown Rx 5/325 mg] Active Medications: Generic Name Dose Route Start Last Admin Trade Name Freq PRN Reason Stop Dose Admin Acetaminophen 650 mg 03/05/21 06:13 Acetaminophen 650 Mg Rect Supp [place] Q6H PRN Pain MILD(1-3)/Fever >100.5/LEE Amlodipine Besylate 10 mg 03/11/21 10:00 Amlodipine 10 Mg Tab PO DAILY [place] Lipase/Protease/Amylase 1 each 03/09/21 15:54 Lipase 10,500/Protease 25,000/Amylase 43,750 (Units) Dr Gongora FEEDTUBE PRN PRN For Clogged Feeding Tube Atorvastatin Calcium 40 mg 03/10/21 22:00 03/10/21 21:54 Atorvastatin 40 Mg Tab PO 40 mg QHS LORENE Administration Clonidine HCl 0.2 mg 03/09/21 11:00 03/11/21 00:00 Clonidine Tts 0.2 Mg/24 Hr Patch TD 0.2 mg Mo LORENE Administration Clopidogrel Bisulfate 75 mg 03/10/21 14:00 03/10/21 14:34 Clopidogrel 75 Mg Tab PO 75 mg QDAY LORENE Administration Dextrose 0 ml 03/08/21 12:30 Dextrose 50% In Water (25gm) 50 Ml Syringe IV ONCE PRN Hypoglycemia Heparin Sodium (Porcine) 5,000 unit 03/05/21 14:00 03/11/21 05:54 Heparin 5,000 Unit/1 Ml Vial SUB-Q 5,000 unit Q8HR LORENE Administration Hydralazine HCl 10 mg 03/05/21 06:43 03/11/21 00:40 Hydralazine 20 Mg/1 Ml Inj IV 10 mg Q4HR PRN Administration Blood Pressure Sodium Chloride 100 mls @ 999 mls/hr 03/09/21 10:02 Nacl 0.9% IV DESIREE PRN Hypotension Lacosamide 100 mg/ Sodium 110 mls @ 100 mls/hr 03/10/21 14:00 03/11/21 03:00 Chloride IV 0 mls/hr Q12H LORENE Infusion Levetiracetam 1,000 mg/ 110 mls @ 400 mls/hr 03/11/21 10:00 Dextrose IV DAILY LORENE Insulin Human Lispro 0 unit 03/10/21 12:00 03/11/21 05:53 Insulin Lispro 100 Unit/Ml SUB-Q 3 unit Q6HR LORENE Administration Protocol Lorazepam 2 mg 03/05/21 07:00 03/10/21 15:27 Lorazepam 2 Mg/Ml Vial IV 2 mg Q4H PRN Administration Seizures Magnesium Hydroxide 30 ml 03/05/21 06:13 Magnesium Hydroxide (Mom) Oral Liqd Udc PO Q4H PRN Constipation Morphine Sulfate 2 mg 03/05/21 06:13 Morphine 2 Mg/1 Ml Inj IV Q4H PRN Pain, Moderate (4-6) Morphine Sulfate 4 mg 03/05/21 06:13 03/11/21 01:06 Morphine 4 Mg/1 Ml Inj IV 4 mg Q4H PRN Administration Pain , Severe (7-10) Phenytoin 100 mg 03/05/21 22:00 03/11/21 05:54 Phenytoin 100 Mg/2 Ml Vial IV 100 mg Q8HR LORENE Administration Simple Syrup 15 ml 03/10/21 11:44 Simple Syrup 15 Ml FEEDTUBE PRN PRN Hypoglycemia Simple Syrup 30 ml 03/10/21 11:44 Simple Syrup 15 Ml FEEDTUBE PRN PRN Hypoglycemia Sodium Bicarbonate 325 mg 03/10/21 11:44 Sodium Bicarbonate 325 Mg Tab FEEDTUBE PRN PRN For Clogged Feeding Tube Sodium Chloride 10 ml 03/05/21 10:00 03/10/21 21:55 Sodium Chloride 0.9% 10 Ml Flush Syringe IV 10 ml BID LORENE Administration Sodium Chloride 10 ml 03/05/21 06:13 Sodium Chloride 0.9% 10 Ml Flush Syringe IV PRN PRN LINE FLUSH
--- NOTE | 2021-03-11 11:30 | Progress Note ---
Assessment and Plan Assessment and plan: 50-year-old female with known history of end-stage renal disease on HD, seizure disorder, CVA with left side deficits, diabetes mellitus, and hypertension with acute encephalophy and electrolyte imbalance secondary to uremia. hospitalist course to date: 03/11/2021: mentation is improved. Pulls lines so continues to be in restraints. Awaiting repeat EEG by neurology and interpretation. Swallowing still remains problematic. Will continue to follow with speech recommendations. CM consulted for rehab placement. Does not need ICU level of care, Plan to transfer to medical floor. Assessment and Plan: #Acute metabolic encephalopathy 2/ to uremia # Hx of CVA with Lt. deficits - 03/05 CT head and MRI w/o contrast showed no acute abnormalities --remote lacunar infarct BG and brain stem. - Cont. dilantin, Keppra, Vimpat per Neuro - PRN ativan for seizure - Seizure precaution - Neuro on consult #End stage renal disease on dialysis- Pt. is anuric #Hyperkalemia-improving #Hyponatremia- resolved - Possible HD today - Continue hemodialysis Per Nephro - Follow up labs in the am #Cardio: elevated Troponin possibly Renal related; H/o HTN - Troponin:0.034, 0.032; 03/05 EKG noted - Hypertensive today, will restart home antihypertensive - Continue clonidine patch and PRN hydralazine for SBP>160 ID: - Patient remains afebrile, VSS, - Mild leukocytosis noted, will continue to monitor - Am labs ordered #Endo: H/o T2DM (type 2 diabetes mellitus) - Cont Humalog sliding scale low-dose. #Advance Care Planning - Discharge planning ongoing - PT/OT eval and treat #DVT prophylaxis: SCDs, Heparin SubQ q8hrs The high probability of a clinically significant, sudden or life threatening deterioration of the [cardio, neuro] system(s) required my full and direct attention, intervention and personal management. The aggregate critical care time was [60] minutes. This time is in addition to time spent performing reported procedures but includes the following: [x] Data Review and interpretation [x] Patient assessment and monitoring of vital signs [x] Documentation [x] Medication orders and management Total Time Spent with Patient (Minutes): 60 History Interval history: No acute complaints. Hospitalist Physical - Physical exam Narrative exam: General appearance: well-developed, well-nourished, appears stated age EENT: ATNC, PERRL, mucous membranes moist Neck: no JVD, right IJ central line in place. Respiratory: Present: Clear to Ascultation Cardiology: regular, S1S2 Gastrointestinal: normoactive bowel sounds Integumentary: no rash Neurologic: no focal deficit, CN 3-12 intact - Constitutional Vitals: Temp Pulse Resp BP Pulse Ox 98.0 F 116 H 12 145/78 99 03/10/21 19:10 03/11/21 06:20 03/11/21 06:20 03/11/21 06:20 03/11/21 06:20 General appearance: Present: no acute distress, well-nourished HEART Score - HEART Score Troponin: Troponin T 0.032 ng/mL (0.00-0.029) H 03/05/21 15:46 Results - Labs CBC & Chem 7: 03/11/21 03:25 03/11/21 03:25 Labs: Laboratory Last Values WBC 14.4 K/mm3 (4.5-11.0) H 03/11/21 03:25 RBC 3.37 M/mm3 (3.65-5.03) L 03/11/21 03:25 Hgb 9.2 gm/dl (10.1-14.3) L 03/11/21 03:25 Hct 28.7 % (30.3-42.9) L 03/11/21 03:25 MCV 85 fl (79-97) 03/11/21 03:25 MCH 27 pg (28-32) L 03/11/21 03:25 MCHC 32 % (30-34) 03/11/21 03:25 RDW 17.1 % (13.2-15.2) H 03/11/21 03:25 Plt Count 181 K/mm3 (140-440) 03/11/21 03:25 Lymph % (Auto) 6.3 % (13.4-35.0) L 03/06/21 05:07 [place] % (Auto) 6.0 % (0.0-7.3) 03/06/21 05:07 Eos % (Auto) 0.2 % (0.0-4.3) 03/06/21 05:07 Baso % (Auto) 0.3 % (0.0-1.8) 03/06/21 05:07 Lymph # (Auto) 0.9 K/mm3 (1.2-5.4) L 03/06/21 05:07 [place] # (Auto) 0.9 K/mm3 (0.0-0.8) H 03/06/21 05:07 Eos # (Auto) 0.0 K/mm3 (0.0-0.4) 03/06/21 05:07 Baso # (Auto) 0.1 K/mm3 (0.0-0.1) 03/06/21 05:07 Seg Neutrophils % 87.2 % (40.0-70.0) H 03/06/21 05:07 Seg Neutrophils # 12.9 K/mm3 (1.8-7.7) H 03/06/21 05:07 ESR 78 mm/Hr (0-20) 03/06/21 15:29 PT 14.5 Sec. (12.2-14.9) 03/06/21 05:07 INR 1.08 (0.87-1.13) 03/06/21 05:07 ABG pH 7.431 (7.320-7.450) 03/05/21 16:15 POC ABG pCO2 37.1 mmHg (32.0-48.0) 03/05/21 16:15 POC ABG pO2 80.0 mmHg (83-108) L 03/05/21 16:15 POC ABG HCO3 24.1 03/05/21 16:15 ABG O2 Saturation 94.6 (0-100) 03/05/21 16:15 POC ABG Base Excess 0 03/05/21 16:15 ABG Hemoglobin 11.0 (12.0-17.5) L 03/05/21 16:15 ABG Oxyhemoglobin 93.3 (94-98) L 03/05/21 16:15 ABG Methemoglobin 0.3 (0.0-1.5) 03/05/21 16:15 ABG Sodium 131.5 mmol/L (136.0-145.0) L 03/05/21 16:15 ABG Potassium 5.1 mmol/L (3.40-4.50) H 03/05/21 16:15 ABG Chloride 95.0 mmol/L (98-107) L 03/05/21 16:15 ABG Glucose 302 mg/dL (65-95) H 03/05/21 16:15 Carboxyhemoglobin 1.1 (0.5-1.5) 03/05/21 16:15 FiO2 % 21.0 03/05/21 16:15 Sodium 136 mmol/L (137-145) L 03/11/21 03:25 Potassium 4.4 mmol/L (3.6-5.0) 03/11/21 03:25 Chloride 92.3 mmol/L (98-107) L 03/11/21 03:25 Carbon Dioxide 24 mmol/L (22-30) 03/11/21 03:25 Anion Gap 24 mmol/L 03/11/21 03:25 BUN 45 mg/dL (7-17) H 03/11/21 03:25 Creatinine 5.6 mg/dL (0.6-1.2) H 03/11/21 03:25 Estimated GFR 10 ml/min 03/11/21 03:25 BUN/Creatinine Ratio 8 % 03/11/21 03:25 Glucose 201 mg/dL (65-100) H 03/11/21 03:25 POC Glucose 214 mg/dL (70-105) H 03/11/21 05:45 Calcium 9.8 mg/dL (8.4-10.2) 03/11/21 03:25 Total Bilirubin 0.30 mg/dL (0.1-1.2) 03/11/21 03:25 AST 25 units/L (5-40) 03/11/21 03:25 ALT 13 units/L (7-56) 03/11/21 03:25 Alkaline Phosphatase 195 units/L (35-129) H 03/11/21 03:25 Ammonia 46.0 umol/L (25-60) 03/06/21 14:09 Troponin T 0.032 ng/mL (0.00-0.029) H 03/05/21 15:46 C-Reactive Protein 7.70 mg/dL (0.00-1.30) H 03/06/21 14:09 Total Protein 7.8 g/dL (6.3-8.2) 03/11/21 03:25 Albumin 3.8 g/dL (3.9-5) L 03/11/21 03:25 Albumin/Globulin Ratio 1.0 % 03/11/21 03:25 Triglycerides 363 mg/dL (2-149) H 03/05/21 04:39 Cholesterol 154 mg/dL (50-199) 03/05/21 04:39 LDL Cholesterol Direct 73 mg/dL (50-130) 03/05/21 04:39 HDL Cholesterol 34 mg/dL (40-59) L 03/05/21 04:39 Cholesterol/HDL Ratio 4.52 % 03/05/21 04:39 Vitamin B12 846.0 pg/mL (211-911) 03/06/21 14:09 TSH 2.530 mlU/mL (0.270-4.200) 03/06/21 14:09 Arterial Blood Glucose 302 mg/dL (65-95) H 03/05/21 16:15 Arterial Blood Ionized Calcium 4.1 mg/dL (4.6-5.3) L 03/05/21 16:15 Phenytoin 13.8 ug/mL (10.0-20.0) 03/10/21 15:55 Levetiracetam 32.3 mcg/mL (12.0-46.0) 03/05/21 15:46 Hepatitis A IgM Ab Non-reactive (NonReactive) 03/06/21 08:37 Hep Bs Antigen Nonreactive (Negative) 03/06/21 08:37 Hep B Core IgM Ab Non-reactive (NonReactive) 03/06/21 08:37 Hepatitis C Antibody Non-reactive (NonReactive) 03/06/21 08:37 Active Medications - Current Medications Current Medications: Generic Name Dose Route Start Last Admin Trade Name Freq PRN Reason Stop Dose Admin Acetaminophen 650 mg 03/05/21 06:13 Acetaminophen 650 Mg Rect Supp CA Q6H PRN Pain MILD(1-3)/Fever >100.5/LEE Amlodipine Besylate 10 mg 03/11/21 10:00 Amlodipine 10 Mg Tab PO DAILY LORENE Lipase/Protease/Amylase 1 each 03/09/21 15:54 Lipase 10,500/Protease 25,000/Amylase 43,750 (Units) Dr Gongora FEEDTUBE PRN PRN For Clogged Feeding Tube Atorvastatin Calcium 40 mg 03/10/21 22:00 03/10/21 21:54 Atorvastatin 40 Mg Tab PO 40 mg QHS LORENE Administration Clonidine HCl 0.2 mg 03/09/21 11:00 03/11/21 00:00 Clonidine Tts 0.2 Mg/24 Hr Patch TD 0.2 mg Mo LORENE Administration Clopidogrel Bisulfate 75 mg 03/10/21 14:00 03/10/21 14:34 Clopidogrel 75 Mg Tab PO 75 mg QDAY LORENE Administration Dextrose 0 ml 03/08/21 12:30 Dextrose 50% In Water (25gm) 50 Ml Syringe IV ONCE PRN Hypoglycemia Heparin Sodium (Porcine) 5,000 unit 03/05/21 14:00 03/11/21 05:54 Heparin 5,000 Unit/1 Ml Vial SUB-Q 5,000 unit Q8HR LORENE Administration Hydralazine HCl 10 mg 03/05/21 06:43 03/11/21 00:40 Hydralazine 20 Mg/1 Ml Inj IV 10 mg Q4HR PRN Administration Blood Pressure Sodium Chloride 100 mls @ 999 mls/hr 03/09/21 10:02 Nacl 0.9% IV DESIREE PRN Hypotension Lacosamide 100 mg/ Sodium 110 mls @ 100 mls/hr 03/10/21 14:00 03/11/21 03:00 Chloride IV 0 mls/hr Q12H LORENE Infusion Levetiracetam 1,000 mg/ 110 mls @ 400 mls/hr 03/11/21 10:00 Dextrose IV DAILY [facility] Insulin Human Lispro 0 unit 03/10/21 12:00 03/11/21 05:53 Insulin Lispro 100 Unit/Ml SUB-Q 3 unit Q6HR LORENE Administration Protocol Lorazepam 2 mg 03/05/21 07:00 03/10/21 15:27 Lorazepam 2 Mg/Ml Vial IV 2 mg Q4H PRN Administration Seizures Magnesium Hydroxide 30 ml 03/05/21 06:13 Magnesium Hydroxide (Mom) Oral Liqd Udc PO Q4H PRN Constipation Morphine Sulfate 2 mg 03/05/21 06:13 Morphine 2 Mg/1 Ml Inj IV Q4H PRN Pain, Moderate (4-6) Morphine Sulfate 4 mg 03/05/21 06:13 03/11/21 01:06 Morphine 4 Mg/1 Ml Inj IV 4 mg Q4H PRN Administration Pain , Severe (7-10) Phenytoin 100 mg 03/05/21 22:00 03/11/21 05:54 Phenytoin 100 Mg/2 Ml Vial IV 100 mg Q8HR LORENE Administration Simple Syrup 15 ml 03/10/21 11:44 Simple Syrup 15 Ml FEEDTUBE PRN PRN Hypoglycemia Simple Syrup 30 ml 03/10/21 11:44 Simple Syrup 15 Ml FEEDTUBE PRN PRN Hypoglycemia Sodium Bicarbonate 325 mg 03/10/21 11:44 Sodium Bicarbonate 325 Mg Tab FEEDTUBE PRN PRN For Clogged Feeding Tube Sodium Chloride 10 ml 03/05/21 10:00 03/10/21 21:55 Sodium Chloride 0.9% 10 Ml Flush Syringe IV 10 ml BID LORENE Administration Sodium Chloride 10 ml 03/05/21 06:13 Sodium Chloride 0.9% 10 Ml Flush Syringe IV PRN PRN LINE FLUSH Nutrition/Malnutrition Assess - Dietary Evaluation Nutrition/Malnutrition Findings: Nutrition Notes Start: 03/05/21 06:45 Freq: Status: Active Protocol: Document 03/10/21 11:34 LAVELLE (Rec: 03/10/21 11:44 LAVELLE [id number]) Nutrition Notes Need for Assessment generated from: MD Order Initial or Follow up Assessment Current Diagnosis CKD (stage V CKD),Diabetes, Hypertension,Stroke Other Pertinent Diagnosis Acute encephalopathy, Uremia, Seizure d/o Current Diet NPO Labs/Tests BUN 76 Cr 8.6 BG 172 Pertinent Medications Dilantin q8h (via i.v.) Height 6 ft Weight 113.4 kg [place] Body Weight (kg) 72.72 BMI 33.9 Weight Status Obese Subjective/Other Information RD consulted for TF; pt remains in ED. Burn Absent Trauma Absent Minimum of two criteria No #1 Nutrition Diagnosis Inadequate oral intake Etiology encephalopthy As Evidenced by Signs and Symptoms pt with unsafe swallow at this time, per [employer]OUNT [employer]ECUTIVE TRAINEE evaluation Is patient on ventilator? No Is Patient Ambulatory and/or Out of Bed No REE-([facility]-confined to bed) 2248.548 Kcal/Kg value to use for calculation 17 Approximate Energy Requirements Using 1928 kcal/Kg Calculation Used for Recommendations Kcal/kg Additional Notes Pro needs >1.2g/kg adjBW: > 112g/day Fluid needs 1-1.5L/day Nutrition Intervention Nutrition Support: Nepro at 45ml/hr with 175ml water flush q4h. Kcal 1,944 Protein (gm) 87 Carbohydrates (gm) 174 Fat (gm) 104 Fluid (mL) 785 Fiber (gm) 14 Goal #1 TF tolerance Goal #2 TF to meet at least 75% energy and pro needs Anticipated Discharge Needs: Unable to identify at this time Follow-Up By: 03/12/21 Additional Comments F/U: new TF, transfer to medical floor
--- NOTE | 2021-03-11 12:35 | Progress Note ---
Assessment and Plan Assessment and Plan Assessment and plan: 50-year-old female with known history of end-stage renal disease on HD, seizure disorder, CVA with left side deficits, diabetes mellitus, and hypertension with acute encephalophy and electrolyte imbalance secondary to uremia. #Acute metabolic encephalopathy 2/2 to uremia - 03/05 CT head and MRI w/o contrast showed no acute abnormalities --remote lacunar infarct BG and brain stem. - Cont. dilantin IV 100 q8 last level is #13.8 - Vimpat 100 mg IV bid and aditi of Keppra due to side effect cut down again to 500 mg Iv daily - PRN ativan for seizure - Seizure precaution - EEG is remarkable for recurent triphasic/BIBLED R>L on 03/06 improved on 03/09 EEG to prn triphasic waves and diffuse slowing # Hx of CVA -she is with left side weakness upper and lower -CT and MRI brain noted no acute event -started on plavix 75 mg daily and lipitor 40 mg -She is allergic to motrin ? rash #End stage renal disease on dialysis- Pt. is anuric #Hyperkalemia #Hyponatremia - Continue hemodialysis, S/p urgent HD on 03/08 #Cardio: elevated Troponin possibly Renal related; H/o HTN - Troponin:0.034, 0.032; 03/05 EKG noted GI: - Patient currently NPO, Nursing Bedside swallow ordered. - Possible Speech Eval if patient fails bedside swallow ID: - Patient remains afebrile, VSS, #Endo: H/o T2DM (type 2 diabetes mellitus) - Cont Humalog sliding scale low-dose. #Advance Care Planning - Discharge planning ongoing - PT/OT eval and treat - Will place a call to listed contact to update them on patient's status #DVT prophylaxis: SCDs, Heparin SubQ q8hrs will follow will follow Subjective Date of service: 03/11/21 Principal diagnosis: Change mentation , ESRD,Hx of seizure Interval history: she is with old left sided weakness and hx of seizure talking today and speech is not clear she is oriented to place and age complant of right shoulder pain she restraint she is [place] had [place] tube to be reevaluated by ST today BUN/Cr#45/5.6 EEG showed tiphasic waves /BIBLED on intial EEG with right side preference -- recent EEG is remarkable for disappearance of BIBLED and mild back ground slowing -she is on Keppra ,Vimpat and phenytoin last level is 13.8 Objective - Vital Sign Vital Signs - 12hr 03/11/21 03/11/21 03/11/21 00:40 01:00 01:06 Pulse Rate Respiratory 15 Rate Blood Pressure 204/60 Blood Pressure 130/46 [Left] O2 Sat by Pulse Oximetry 03/11/21 03/11/21 03/11/21 02:00 03:01 04:33 Pulse Rate 110 H Respiratory 13 Rate Blood Pressure 152/70 Blood Pressure 152/70 142/70 [Left] O2 Sat by Pulse 99 Oximetry 03/11/21 03/11/21 05:01 06:20 Pulse Rate 111 H 116 H Respiratory 13 12 Rate Blood Pressure 157/84 145/78 Blood Pressure [Left] O2 Sat by Pulse 99 99 Oximetry - General Apperance Constitutional: uncomfortable, other (restraint) - EENT EENT: PERRL, mucous membranes moist - Respiratory Respiratory: chest non-tender, lungs clear, rhonchi - Cardiovascular Cardiovascular: regular rate, normal S1, normal S2 Extremities: no peripheral edema bilat, no clubbing, cyanosis - Gastrointestinal Gastrointestinal: normoactive bowel sounds - Integumentary Integumentary: normal - Neurologic Cranial nerve examination: PERRL, EOMI, other (left facial drooop with no visual field defect , intermittent left facial twitching ) Detailed motor examination: other (left upper and lower is 2/5 reflexes are suppressed ) - Laboratory Findings CBC and BMP: 03/11/21 03:25 03/11/21 03:25 Abnormal Lab Findings: Abnormal Labs 03/05/21 03/05/21 03/05/21 02:34 04:14 04:39 WBC RBC 3.51 L Hgb 9.9 L Hct 30.0 L MCH RDW 16.8 H Lymph % (Auto) Lymph # (Auto) [place] # (Auto) Seg Neutrophils % 77.6 H Seg Neutrophils # POC ABG pO2 ABG Hemoglobin ABG Oxyhemoglobin ABG Sodium ABG Potassium ABG Chloride ABG Glucose Sodium Potassium Chloride Carbon Dioxide BUN Creatinine Glucose POC Glucose 167 H 198 H Alkaline Phosphatase Ammonia Troponin T C-Reactive Protein Albumin Triglycerides HDL Cholesterol Arterial Blood Glucose Arterial Blood Ionized Calcium 03/05/21 03/05/2121 04:39 04:39 07:30 WBC RBC Hgb Hct MCH RDW Lymph % (Auto) Lymph # (Auto) [place] # (Auto) Seg Neutrophils % Seg Neutrophils # POC ABG pO2 ABG Hemoglobin ABG Oxyhemoglobin ABG Sodium ABG Potassium ABG Chloride ABG Glucose Sodium Potassium Chloride 95.9 L Carbon Dioxide BUN 46 H Creatinine 7.6 H Glucose 243 H POC Glucose 212 H Alkaline Phosphatase 238 H Ammonia 17.0 L Troponin T 0.034 H C-Reactive Protein Albumin 3.8 L Triglycerides 363 H HDL Cholesterol 34 L Arterial Blood Glucose Arterial Blood Ionized Calcium 03/05/21 03/05/21 03/05/21 11:39 15:46 16:15 WBC RBC Hgb Hct MCH RDW Lymph % (Auto) Lymph # (Auto) [place] # (Auto) Seg Neutrophils % Seg Neutrophils # POC ABG pO2 80.0 L ABG Hemoglobin 11.0 L ABG Oxyhemoglobin 93.3 L ABG Sodium 131.5 L ABG Potassium 5.1 H ABG Chloride 95.0 L ABG Glucose 302 H Sodium Potassium Chloride Carbon Dioxide BUN Creatinine Glucose POC Glucose 212 H Alkaline Phosphatase Ammonia Troponin T 0.032 H C-Reactive Protein Albumin Triglycerides HDL Cholesterol Arterial Blood Glucose 302 H Arterial Blood Ionized Calcium 4.1 L 03/05/21 03/05/21 03/06/21 17:32 21:56 05:07 WBC 14.8 H RBC Hgb Hct MCH 27 L RDW 17.0 H Lymph % (Auto) 6.3 L Lymph # (Auto) 0.9 L [place] # (Auto) 0.9 H Seg Neutrophils % 87.2 H Seg Neutrophils # 12.9 H POC ABG pO2 ABG Hemoglobin ABG Oxyhemoglobin ABG Sodium ABG Potassium ABG Chloride ABG Glucose Sodium Potassium Chloride Carbon Dioxide BUN Creatinine Glucose POC Glucose 245 H 236 H Alkaline Phosphatase Ammonia Troponin T C-Reactive Protein Albumin Triglycerides HDL Cholesterol Arterial Blood Glucose Arterial Blood Ionized Calcium 03/06/21 03/06/21 03/06/21 08:07 08:12 11:49 WBC RBC Hgb Hct MCH RDW Lymph % (Auto) Lymph # (Auto) [place] # (Auto) Seg Neutrophils % Seg Neutrophils # POC ABG pO2 ABG Hemoglobin ABG Oxyhemoglobin ABG Sodium ABG Potassium ABG Chloride ABG Glucose Sodium 131 L Potassium 5.8 H D Chloride 90.6 L Carbon Dioxide 16 L D BUN 65 H Creatinine 9.0 H Glucose 388 H POC Glucose 321 H 315 H Alkaline Phosphatase Ammonia Troponin T C-Reactive Protein Albumin Triglycerides HDL Cholesterol Arterial Blood Glucose Arterial Blood Ionized Calcium 03/06/21 03/06/21 03/07/21 14:09 17:36 01:23 WBC RBC Hgb Hct MCH RDW Lymph % (Auto) Lymph # (Auto) [place] # (Auto) Seg Neutrophils % Seg Neutrophils # POC ABG pO2 ABG Hemoglobin ABG Oxyhemoglobin ABG Sodium ABG Potassium ABG Chloride ABG Glucose Sodium Potassium Chloride Carbon Dioxide BUN Creatinine Glucose POC Glucose 223 H 146 H Alkaline Phosphatase Ammonia Troponin T C-Reactive Protein 7.70 H Albumin Triglycerides HDL Cholesterol Arterial Blood Glucose Arterial Blood Ionized Calcium 03/07/21 03/07/21 03/07/21 08:25 12:47 17:20 WBC RBC Hgb Hct MCH RDW Lymph % (Auto) Lymph # (Auto) [place] # (Auto) Seg Neutrophils % Seg Neutrophils # POC ABG pO2 ABG Hemoglobin ABG Oxyhemoglobin ABG Sodium ABG Potassium ABG Chloride ABG Glucose Sodium Potassium Chloride Carbon Dioxide BUN Creatinine Glucose POC Glucose 207 H 257 H 174 H Alkaline Phosphatase Ammonia Troponin T C-Reactive Protein Albumin Triglycerides HDL Cholesterol Arterial Blood Glucose Arterial Blood Ionized Calcium 03/07/21 03/08/21 03/08/21 23:15 06:27 07:49 WBC RBC Hgb Hct MCH RDW Lymph % (Auto) Lymph # (Auto) [place] # (Auto) Seg Neutrophils % Seg Neutrophils # POC ABG pO2 ABG Hemoglobin ABG Oxyhemoglobin ABG Sodium ABG Potassium ABG Chloride ABG Glucose Sodium 136 L 136 L Potassium 6.3 H* Chloride 90.8 L 90.6 L Carbon Dioxide BUN 75 H 79 H Creatinine 9.3 H 9.4 H Glucose 260 H 297 H POC Glucose 174 H Alkaline Phosphatase Ammonia Troponin T C-Reactive Protein Albumin Triglycerides HDL Cholesterol Arterial Blood Glucose Arterial Blood Ionized Calcium 03/08/21 03/09/21 03/09/21 12:04 03:12 06:13 WBC RBC Hgb Hct MCH RDW Lymph % (Auto) Lymph # (Auto) [place] # (Auto) Seg Neutrophils % Seg Neutrophils # POC ABG pO2 ABG Hemoglobin ABG Oxyhemoglobin ABG Sodium ABG Potassium ABG Chloride ABG Glucose Sodium Potassium Chloride Carbon Dioxide BUN Creatinine Glucose POC Glucose 291 H 201 H 178 H Alkaline Phosphatase Ammonia Troponin T C-Reactive Protein Albumin Triglycerides HDL Cholesterol Arterial Blood Glucose Arterial Blood Ionized Calcium 03/09/21 03/09/21 03/09/21 07:51 09:54 11:19 WBC 13.9 H RBC 3.20 L Hgb 8.9 L Hct 28.0 L MCH RDW 17.1 H Lymph % (Auto) Lymph # (Auto) [place] # (Auto) Seg Neutrophils % Seg Neutrophils # POC ABG pO2 ABG Hemoglobin ABG Oxyhemoglobin ABG Sodium ABG Potassium ABG Chloride ABG Glucose Sodium Potassium Chloride Carbon Dioxide BUN Creatinine Glucose POC Glucose 198 H 110 H Alkaline Phosphatase Ammonia Troponin T C-Reactive Protein Albumin Triglycerides HDL Cholesterol Arterial Blood Glucose Arterial Blood Ionized Calcium 03/09/21 03/09/21 03/09/21 16:10 23:23 Unknown WBC RBC Hgb Hct MCH RDW Lymph % (Auto) Lymph # (Auto) [place] # (Auto) Seg Neutrophils % Seg Neutrophils # POC ABG pO2 ABG Hemoglobin ABG Oxyhemoglobin ABG Sodium ABG Potassium ABG Chloride ABG Glucose Sodium Potassium Chloride 95.6 L Carbon Dioxide BUN 52 H Creatinine 6.4 H Glucose 190 H POC Glucose 140 H 126 H Alkaline Phosphatase 208 H Ammonia Troponin T C-Reactive Protein Albumin 3.6 L Triglycerides HDL Cholesterol Arterial Blood Glucose Arterial Blood Ionized Calcium 03/10/21 03/10/21 03/10/21 05:44 05:44 12:39 WBC 12.6 H RBC 3.11 L Hgb 8.8 L Hct 26.7 L MCH RDW 16.9 H Lymph % (Auto) Lymph # (Auto) [place] # (Auto) Seg Neutrophils % Seg Neutrophils # POC ABG pO2 ABG Hemoglobin ABG Oxyhemoglobin ABG Sodium ABG Potassium ABG Chloride ABG Glucose Sodium Potassium Chloride 94.6 L Carbon Dioxide 20 L BUN 76 H Creatinine 8.6 H Glucose 172 H POC Glucose 201 H Alkaline Phosphatase 198 H Ammonia Troponin T C-Reactive Protein Albumin 3.7 L Triglycerides HDL Cholesterol Arterial Blood Glucose Arterial Blood Ionized Calcium 03/10/21 03/10/21 03/11/21 17:38 23:59 03:25 WBC 14.4 H RBC 3.37 L Hgb 9.2 L Hct 28.7 L MCH 27 L RDW 17.1 H Lymph % (Auto) Lymph # (Auto) [place] # (Auto) Seg Neutrophils % Seg Neutrophils # POC ABG pO2 ABG Hemoglobin ABG Oxyhemoglobin ABG Sodium ABG Potassium ABG Chloride ABG Glucose Sodium Potassium Chloride Carbon Dioxide BUN Creatinine Glucose POC Glucose 179 H 173 H Alkaline Phosphatase Ammonia Troponin T C-Reactive Protein Albumin Triglycerides HDL Cholesterol Arterial Blood Glucose Arterial Blood Ionized Calcium 03/11/21 03/11/21 03:25 05:45 WBC RBC Hgb Hct MCH RDW Lymph % (Auto) Lymph # (Auto) [place] # (Auto) Seg Neutrophils % Seg Neutrophils # POC ABG pO2 ABG Hemoglobin ABG Oxyhemoglobin ABG Sodium ABG Potassium ABG Chloride ABG Glucose Sodium 136 L Potassium Chloride 92.3 L Carbon Dioxide BUN 45 H Creatinine 5.6 H Glucose 201 H POC Glucose 214 H Alkaline Phosphatase 195 H Ammonia Troponin T C-Reactive Protein Albumin 3.8 L Triglycerides HDL Cholesterol Arterial Blood Glucose Arterial Blood Ionized Calcium
[2021-03-11] MEDS: levETIRAcetam 500 MG in DEXTROSE 5% IN WATER 100 ML IV SCH (18:00)
[2021-03-12] MEDS: INSULIN LISPRO 100 UNIT/ML SUB-Q SCH ×4 (00:05→21:38)
[2021-03-12] MEDS: LACOSAMIDE 100 MG in SODIUM CHLORIDE 0.9% 100 ML IV SCH ×2 (02:02→15:15)
[2021-03-12] MEDS: PHENYTOIN 100 MG/2 ML VIAL IV SCH ×4 (04:20→21:38)
[2021-03-12] MEDS: HEPARIN 5,000 UNIT/1 ML VIAL SUB-Q SCH ×4 (04:54→21:38)
--- NOTE | 2021-03-12 08:41 | Progress Note ---
Assessment and Plan Assessment and plan: 50-year-old female with known history of end-stage renal disease on HD, seizure disorder, CVA with left side deficits, diabetes mellitus, and hypertension with acute encephalophy and electrolyte imbalance secondary to uremia. hospitalist course to date: 03/11/2021: mentation is improved. Pulls lines so continues to be in restraints. Awaiting repeat EEG by neurology and interpretation. Swallowing still remains problematic. Will continue to follow with speech recommendations. CM consulted for rehab placement. Does not need ICU level of care, Plan to transfer to medical floor. 03/12/2021: mentation is improved, able to answer yes/no questions. Neuro recs noted, EEG findings noted below. will continue antiepileptics. Patient appears to have pulled NG tube again voicing that she wants to eat. Will follow speech recommendations for dysphagia recovery progress prior to re-attempting NG tube placement.. May need PEG tube. Assessment and Plan: #Acute metabolic encephalopathy 2/2 to uremia # Hx of CVA with Lt. deficits - 03/05 CT head and MRI w/o contrast showed no acute abnormalities --remote lacunar infarct BG and brain stem. - Cont. dilantin, Keppra 500 mg IV daily, Vimpat per Neuro - PRN ativan for seizure - Seizure precaution - Neuro on consult - EEG is remarkable for recurent triphasic/BIBLED R>L on 03/06 improved on 03/09 EEG to prn triphasic waves and diffuse slowing #End stage renal disease on dialysis- Pt. is anuric #Hyperkalemia-improving #Hyponatremia- resolved - Possible HD today - Continue hemodialysis Per Nephro - Follow up labs in the am #Cardio: elevated Troponin possibly Renal related; H/o HTN - Troponin:0.034, 0.032; 03/05 EKG noted - Hypertensive today, will restart home antihypertensive - Continue clonidine patch and PRN hydralazine for SBP>160 ID: - Patient remains afebrile, VSS, - Mild leukocytosis noted, will continue to monitor - Am labs ordered #Endo: H/o T2DM (type 2 diabetes mellitus) - Cont Humalog sliding scale low-dose. #Advance Care Planning - Discharge planning ongoing - PT/OT eval and treat #DVT prophylaxis: SCDs, Heparin SubQ q8hrs History Interval history: Patient appears to have pulled NG tube again voicing that she wants to eat. Will follow speech recommendations for dysphagia recovery progress prior to re- attempting NG tube placement. Discussed plan with patient and care team. Hospitalist Physical - Physical exam Narrative exam: General appearance: well-developed, well-nourished, appears stated age EENT: ATNC, PERRL, mucous membranes moist Neck: no JVD, right IJ central line in place. Respiratory: Present: Clear to Ascultation Cardiology: regular, S1S2 Gastrointestinal: normoactive bowel sounds Integumentary: no rash Neurologic: no focal deficit, CN 3-12 intact - Constitutional Vitals: Temp Pulse Resp BP Pulse Ox 98.4 F 105 H 18 148/79 97 03/12/21 05:08 03/12/21 05:08 03/12/21 05:08 03/12/21 05:08 03/12/21 06:00 General appearance: Present: no acute distress, well-nourished HEART Score - HEART Score Troponin: Troponin T 0.032 ng/mL (0.00-0.029) H 03/05/21 15:46 Results - Labs CBC & Chem 7: 03/11/21 03:25 03/11/21 03:25 Labs: Laboratory Last Values WBC 14.4 K/mm3 (4.5-11.0) H 03/11/21 03:25 RBC 3.37 M/mm3 (3.65-5.03) L 03/11/21 03:25 Hgb 9.2 gm/dl (10.1-14.3) L 03/11/21 03:25 Hct 28.7 % (30.3-42.9) L 03/11/21 03:25 MCV 85 fl (79-97) 03/11/21 03:25 MCH 27 pg (28-32) L 03/11/21 03:25 MCHC 32 % (30-34) 03/11/21 03:25 RDW 17.1 % (13.2-15.2) H 03/11/21 03:25 Plt Count 181 K/mm3 (140-440) 03/11/21 03:25 Lymph % (Auto) 6.3 % (13.4-35.0) L 03/06/21 05:07 [place] % (Auto) 6.0 % (0.0-7.3) 03/06/21 05:07 Eos % (Auto) 0.2 % (0.0-4.3) 03/06/21 05:07 Baso % (Auto) 0.3 % (0.0-1.8) 03/06/21 05:07 Lymph # (Auto) 0.9 K/mm3 (1.2-5.4) L 03/06/21 05:07 [place] # (Auto) 0.9 K/mm3 (0.0-0.8) H 03/06/21 05:07 Eos # (Auto) 0.0 K/mm3 (0.0-0.4) 03/06/21 05:07 Baso # (Auto) 0.1 K/mm3 (0.0-0.1) 03/06/21 05:07 Seg Neutrophils % 87.2 % (40.0-70.0) H 03/06/21 05:07 Seg Neutrophils # 12.9 K/mm3 (1.8-7.7) H 03/06/21 05:07 ESR 78 mm/Hr (0-20) 03/06/21 15:29 PT 14.5 Sec. (12.2-14.9) 03/06/21 05:07 INR 1.08 (0.87-1.13) 03/06/21 05:07 ABG pH 7.431 (7.320-7.450) 03/05/21 16:15 POC ABG pCO2 37.1 mmHg (32.0-48.0) 03/05/21 16:15 POC ABG pO2 80.0 mmHg (83-108) L 03/05/21 16:15 POC ABG HCO3 24.1 03/05/21 16:15 ABG O2 Saturation 94.6 (0-100) 03/05/21 16:15 POC ABG Base Excess 0 03/05/21 16:15 ABG Hemoglobin 11.0 (12.0-17.5) L 03/05/21 16:15 ABG Oxyhemoglobin 93.3 (94-98) L 03/05/21 16:15 ABG Methemoglobin 0.3 (0.0-1.5) 03/05/21 16:15 ABG Sodium 131.5 mmol/L (136.0-145.0) L 03/05/21 16:15 ABG Potassium 5.1 mmol/L (3.40-4.50) H 03/05/21 16:15 ABG Chloride 95.0 mmol/L (98-107) L 03/05/21 16:15 ABG Glucose 302 mg/dL (65-95) H 03/05/21 16:15 Carboxyhemoglobin 1.1 (0.5-1.5) 03/05/21 16:15 FiO2 % 21.0 03/05/21 16:15 Sodium 136 mmol/L (137-145) L 03/11/21 03:25 Potassium 4.4 mmol/L (3.6-5.0) 03/11/21 03:25 Chloride 92.3 mmol/L (98-107) L 03/11/21 03:25 Carbon Dioxide 24 mmol/L (22-30) 03/11/21 03:25 Anion Gap 24 mmol/L 03/11/21 03:25 BUN 45 mg/dL (7-17) H 03/11/21 03:25 Creatinine 5.6 mg/dL (0.6-1.2) H 03/11/21 03:25 Estimated GFR 10 ml/min 03/11/21 03:25 BUN/Creatinine Ratio 8 % 03/11/21 03:25 Glucose 201 mg/dL (65-100) H 03/11/21 03:25 POC Glucose 163 mg/dL (70-105) H 03/12/21 05:06 Calcium 9.8 mg/dL (8.4-10.2) 03/11/21 03:25 Total Bilirubin 0.30 mg/dL (0.1-1.2) 03/11/21 03:25 AST 25 units/L (5-40) 03/11/21 03:25 ALT 13 units/L (7-56) 03/11/21 03:25 Alkaline Phosphatase 195 units/L (35-129) H 03/11/21 03:25 Ammonia 46.0 umol/L (25-60) 03/06/21 14:09 Troponin T 0.032 ng/mL (0.00-0.029) H 03/05/21 15:46 C-Reactive Protein 7.70 mg/dL (0.00-1.30) H 03/06/21 14:09 Total Protein 7.8 g/dL (6.3-8.2) 03/11/21 03:25 Albumin 3.8 g/dL (3.9-5) L 03/11/21 03:25 Albumin/Globulin Ratio 1.0 % 03/11/21 03:25 Triglycerides 363 mg/dL (2-149) H 03/05/21 04:39 Cholesterol 154 mg/dL (50-199) 03/05/21 04:39 LDL Cholesterol Direct 73 mg/dL (50-130) 03/05/21 04:39 HDL Cholesterol 34 mg/dL (40-59) L 03/05/21 04:39 Cholesterol/HDL Ratio 4.52 % 03/05/21 04:39 Vitamin B12 846.0 pg/mL (211-911) 03/06/21 14:09 TSH 2.530 mlU/mL (0.270-4.200) 03/06/21 14:09 Arterial Blood Glucose 302 mg/dL (65-95) H 03/05/21 16:15 Arterial Blood Ionized Calcium 4.1 mg/dL (4.6-5.3) L 03/05/21 16:15 Phenytoin 13.8 ug/mL (10.0-20.0) 03/10/21 15:55 Levetiracetam 32.3 mcg/mL (12.0-46.0) 03/05/21 15:46 Hepatitis A IgM Ab Non-reactive (NonReactive) 03/06/21 08:37 Hep Bs Antigen Nonreactive (Negative) 03/06/21 08:37 Hep B Core IgM Ab Non-reactive (NonReactive) 03/06/21 08:37 Hepatitis C Antibody Non-reactive (NonReactive) 03/06/21 08:37 [place]/IV: Voiding Method External Female Catheter Active Medications - Current Medications Current Medications: Generic Name Dose Route Start Last Admin Trade Name Freq PRN Reason Stop Dose Admin Acetaminophen 650 mg 03/05/21 06:13 Acetaminophen 650 Mg Rect Supp VT Q6H PRN Pain MILD(1-3)/Fever >100.5/LEE Amlodipine Besylate 10 mg 03/11/21 10:00 03/11/21 10:49 Amlodipine 10 Mg Tab PO Not Given DAILY LORENE Lipase/Protease/Amylase 1 each 03/09/21 15:54 Lipase 10,500/Protease 25,000/Amylase 43,750 (Units) Dr Gongora FEEDTUBE PRN PRN For Clogged Feeding Tube Atorvastatin Calcium 40 mg 03/10/21 22:00 03/11/21 21:15 Atorvastatin 40 Mg Tab PO 40 mg QHS LORENE Administration Clonidine HCl 0.2 mg 03/09/21 11:00 03/11/21 00:00 Clonidine Tts 0.2 Mg/24 Hr Patch TD 0.2 mg Mo LORENE Administration Clopidogrel Bisulfate 75 mg 03/10/21 14:00 03/11/21 10:49 Clopidogrel 75 Mg Tab PO Not Given QDAY LORENE Dextrose 0 ml 03/08/21 12:30 Dextrose 50% In Water (25gm) 50 Ml Syringe IV ONCE PRN Hypoglycemia Heparin Sodium (Porcine) 5,000 unit 03/05/21 14:00 03/12/21 05:00 Heparin 5,000 Unit/1 Ml Vial SUB-Q Not Given Q8HR LORENE Hydralazine HCl 10 mg 03/05/21 06:43 03/11/21 00:40 Hydralazine 20 Mg/1 Ml Inj IV 10 mg Q4HR PRN Administration Blood Pressure Sodium Chloride 100 mls @ 999 mls/hr 03/09/21 10:02 Nacl 0.9% IV DESIREE PRN Hypotension Lacosamide 100 mg/ Sodium 110 mls @ 100 mls/hr 03/10/21 14:00 03/12/21 02:02 Chloride IV 100 mls/hr Q12H LORENE Administration Levetiracetam 500 mg/ Dextrose 105 mls @ 400 mls/hr 03/11/21 14:00 03/11/21 18:00 IV 400 mls/hr DAILY LORENE Administration Insulin Human Lispro 0 unit 03/10/21 12:00 03/12/21 00:05 Insulin Lispro 100 Unit/Ml SUB-Q Not Given Q6HR [facility] Protocol Lorazepam 2 mg 03/05/21 07:00 03/10/21 15:27 Lorazepam 2 Mg/Ml Vial IV 2 mg Q4H PRN Administration Seizures Magnesium Hydroxide 30 ml 03/05/21 06:13 Magnesium Hydroxide (Mom) Oral Liqd Udc PO Q4H PRN Constipation Morphine Sulfate 2 mg 03/05/21 06:13 Morphine 2 Mg/1 Ml Inj IV Q4H PRN Pain, Moderate (4-6) Morphine Sulfate 4 mg 03/05/21 06:13 03/11/21 01:06 Morphine 4 Mg/1 Ml Inj IV 4 mg Q4H PRN Administration Pain , Severe (7-10) Phenytoin 100 mg 03/05/21 22:00 03/12/21 05:00 Phenytoin 100 Mg/2 Ml Vial IV Not Given Q8HR LORENE Simple Syrup 15 ml 03/10/21 11:44 Simple Syrup 15 Ml FEEDTUBE PRN PRN Hypoglycemia Simple Syrup 30 ml 03/10/21 11:44 Simple Syrup 15 Ml FEEDTUBE PRN PRN Hypoglycemia Sodium Bicarbonate 325 mg 03/10/21 11:44 Sodium Bicarbonate 325 Mg Tab FEEDTUBE PRN PRN For Clogged Feeding Tube Sodium Chloride 10 ml 03/05/21 10:00 03/11/21 21:15 Sodium Chloride 0.9% 10 Ml Flush Syringe IV 10 ml BID LORENE Administration Sodium Chloride 10 ml 03/05/21 06:13 Sodium Chloride 0.9% 10 Ml Flush Syringe IV PRN PRN LINE FLUSH Nutrition/Malnutrition Assess - Dietary Evaluation Nutrition/Malnutrition Findings: Nutrition Notes Start: 03/05/21 06:45 Freq: Status: Active Protocol: Document 03/10/21 11:34 LAVELLE (Rec: 03/10/21 11:44 LAVELLE [email or web address]) Nutrition Notes Need for Assessment generated from: MD Order Initial or Follow up Assessment Current Diagnosis CKD (stage V CKD),Diabetes, Hypertension,Stroke Other Pertinent Diagnosis Acute encephalopathy, Uremia, Seizure d/o Current Diet NPO Labs/Tests BUN 76 Cr 8.6 BG 172 Pertinent Medications Dilantin q8h (via i.v.) Height 6 ft Weight 113.4 kg [place] Body Weight (kg) 72.72 BMI 33.9 Weight Status Obese Subjective/Other Information RD consulted for TF; pt remains in ED. Burn Absent Trauma Absent Minimum of two criteria No #1 Nutrition Diagnosis Inadequate oral intake Etiology encephalopthy As Evidenced by Signs and Symptoms pt with unsafe swallow at this time, per [employer] evaluation Is patient on ventilator? No Is Patient Ambulatory and/or Out of Bed No REE-([facility]-confined to bed) 2248.548 Kcal/Kg value to use for calculation 17 Approximate Energy Requirements Using 1928 kcal/Kg Calculation Used for Recommendations Kcal/kg Additional Notes Pro needs >1.2g/kg adjBW: > 112g/day Fluid needs 1-1.5L/day Nutrition Intervention Nutrition Support: Nepro at 45ml/hr with 175ml water flush q4h. Kcal 1,944 Protein (gm) 87 Carbohydrates (gm) 174 Fat (gm) 104 Fluid (mL) 785 Fiber (gm) 14 Goal #1 TF tolerance Goal #2 TF to meet at least 75% energy and pro needs Anticipated Discharge Needs: Unable to identify at this time Follow-Up By: 03/12/21 Additional Comments F/U: new TF, transfer to medical floor
[2021-03-12] MEDS: amLODIPine 10 MG TAB PO SCH (09:17)
[2021-03-12] MEDS: CLOPIDOGREL 75 MG TAB PO SCH (09:18)
--- NOTE | 2021-03-12 12:35 | Progress Note ---
Assessment and Plan Assessment and Plan Assessment and plan: 50-year-old female with known history of end-stage renal disease on HD, seizure disorder, CVA with left side deficits, diabetes mellitus, and hypertension with acute encephalophy and electrolyte imbalance secondary to uremia. #Acute metabolic encephalopathy 2/2 to uremia - 03/05 CT head and MRI w/o contrast showed no acute abnormalities --remote lacunar infarct BG and brain stem. - Cont. dilantin IV 100 q8 last level is #13.8 - Vimpat 100 mg IV bid and aditi of Keppra due to side effect cut down again to 500 mg Iv daily - PRN ativan for seizure - Seizure precaution - EEG is remarkable for recurent triphasic/BIBLED R>L on 03/06 improved on 03/09 EEG to prn triphasic waves and diffuse slowing # Hx of CVA -she is with left side weakness upper and lower -CT and MRI brain noted no acute event -started on plavix 75 mg daily and lipitor 40 mg -She is allergic to motrin ? rash #End stage renal disease on dialysis- Pt. is anuric #Hyperkalemia #Hyponatremia - Continue hemodialysis, S/p urgent HD on 03/08 #Cardio: elevated Troponin possibly Renal related; H/o HTN - Troponin:0.034, 0.032; 03/05 EKG noted GI: - Patient currently NPO, Nursing Bedside swallow ordered. - Possible Speech Eval if patient fails bedside swallow ID: - Patient remains afebrile, VSS, #Endo: H/o T2DM (type 2 diabetes mellitus) - Cont Humalog sliding scale low-dose. #Advance Care Planning - Discharge planning ongoing - PT/OT eval and treat - Will place a call to listed contact to update them on patient's status #DVT prophylaxis: SCDs, Heparin SubQ q8hrs will follow as needed will follow Subjective Date of service: 03/12/21 Principal diagnosis: Change mentation , ESRD,Hx of seizure Interval history: she is with old left sided weakness and hx of seizure talking today and speech is not clear she is disoriented to place and age had [place] tube to be reevaluated by ST today BUN/Cr#45/5.6 EEG showed tiphasic waves /BIBLED on intial EEG with right side preference -- recent EEG is remarkable for disappearance of BIBLED and mild back ground slowing -she is on Keppra ,Vimpat and phenytoin last level is 13.8 Objective - Vital Sign Vital Signs - 12hr 03/12/21 03/12/21 03/12/21 00:53 02:00 05:08 Temperature 98.4 F Pulse Rate 105 H Respiratory 18 Rate Blood Pressure 148/79 O2 Sat by Pulse 95 98 93 Oximetry 03/12/21 03/12/21 06:00 07:54 Temperature Pulse Rate 100 H Respiratory 18 Rate Blood Pressure 183/69 O2 Sat by Pulse 97 96 Oximetry - General Apperance Constitutional: comfortable - EENT EENT: PERRL, mucous membranes moist - Respiratory Respiratory: lungs clear, rhonchi - Cardiovascular Cardiovascular: regular rate, normal S1, normal S2 Extremities: no peripheral edema bilat, no clubbing, cyanosis - Gastrointestinal Gastrointestinal: normoactive bowel sounds - Integumentary Integumentary: normal - Neurologic Cranial nerve examination: PERRL, EOMI, other (left facial droop ,decrese speech out put confused) Detailed motor examination: other (left side weakness 2-3/5 ) - Laboratory Findings CBC and BMP: 03/11/21 03:25 03/11/21 03:25 Abnormal Lab Findings: Abnormal Labs 03/05/21 03/05/21 03/05/21 02:34 04:14 04:39 WBC RBC 3.51 L Hgb 9.9 L Hct 30.0 L MCH RDW 16.8 H Lymph % (Auto) Lymph # (Auto) [place] # (Auto) Seg Neutrophils % 77.6 H Seg Neutrophils # POC ABG pO2 ABG Hemoglobin ABG Oxyhemoglobin ABG Sodium ABG Potassium ABG Chloride ABG Glucose Sodium Potassium Chloride Carbon Dioxide BUN Creatinine Glucose POC Glucose 167 H 198 H Alkaline Phosphatase Ammonia Troponin T C-Reactive Protein Albumin Triglycerides HDL Cholesterol Arterial Blood Glucose Arterial Blood Ionized Calcium 03/05/21 03/05/21 03/05/21 04:39 04:39 07:30 WBC RBC Hgb Hct MCH RDW Lymph % (Auto) Lymph # (Auto) [place] # (Auto) Seg Neutrophils % Seg Neutrophils # POC ABG pO2 ABG Hemoglobin ABG Oxyhemoglobin ABG Sodium ABG Potassium ABG Chloride ABG Glucose Sodium Potassium Chloride 95.9 L Carbon Dioxide BUN 46 H Creatinine 7.6 H Glucose 243 H POC Glucose 212 H Alkaline Phosphatase 238 H Ammonia 17.0 L Troponin T 0.034 H C-Reactive Protein Albumin 3.8 L Triglycerides 363 H HDL Cholesterol 34 L Arterial Blood Glucose Arterial Blood Ionized Calcium 03/05/21 03/05/21 03/05/21 11:39 15:46 16:15 WBC RBC Hgb Hct MCH RDW Lymph % (Auto) Lymph # (Auto) [place] # (Auto) Seg Neutrophils % Seg Neutrophils # POC ABG pO2 80.0 L ABG Hemoglobin 11.0 L ABG Oxyhemoglobin 93.3 L ABG Sodium 131.5 L ABG Potassium 5.1 H ABG Chloride 95.0 L ABG Glucose 302 H Sodium Potassium Chloride Carbon Dioxide BUN Creatinine Glucose POC Glucose 212 H Alkaline Phosphatase Ammonia Troponin T 0.032 H C-Reactive Protein Albumin Triglycerides HDL Cholesterol Arterial Blood Glucose 302 H Arterial Blood Ionized Calcium 4.1 L 03/05/21 03/05/21 03/06/21 17:32 21:56 05:07 WBC 14.8 H RBC Hgb Hct MCH 27 L RDW 17.0 H Lymph % (Auto) 6.3 L Lymph # (Auto) 0.9 L [place] # (Auto) 0.9 H Seg Neutrophils % 87.2 H Seg Neutrophils # 12.9 H POC ABG pO2 ABG Hemoglobin ABG Oxyhemoglobin ABG Sodium ABG Potassium ABG Chloride ABG Glucose Sodium Potassium Chloride Carbon Dioxide BUN Creatinine Glucose POC Glucose 245 H 236 H Alkaline Phosphatase Ammonia Troponin T C-Reactive Protein Albumin Triglycerides HDL Cholesterol Arterial Blood Glucose Arterial Blood Ionized Calcium 03/06/21 03/06/21 03/06/21 08:07 08:12 11:49 WBC RBC Hgb Hct MCH RDW Lymph % (Auto) Lymph # (Auto) [place] # (Auto) Seg Neutrophils % Seg Neutrophils # POC ABG pO2 ABG Hemoglobin ABG Oxyhemoglobin ABG Sodium ABG Potassium ABG Chloride ABG Glucose Sodium 131 L Potassium 5.8 H D Chloride 90.6 L Carbon Dioxide 16 L D BUN 65 H Creatinine 9.0 H Glucose 388 H POC Glucose 321 H 315 H Alkaline Phosphatase Ammonia Troponin T C-Reactive Protein Albumin Triglycerides HDL Cholesterol Arterial Blood Glucose Arterial Blood Ionized Calcium 03/06/21 03/06/21 03/07/21 14:09 17:36 01:23 WBC RBC Hgb Hct MCH RDW Lymph % (Auto) Lymph # (Auto) [place] # (Auto) Seg Neutrophils % Seg Neutrophils # POC ABG pO2 ABG Hemoglobin ABG Oxyhemoglobin ABG Sodium ABG Potassium ABG Chloride ABG Glucose Sodium Potassium Chloride Carbon Dioxide BUN Creatinine Glucose POC Glucose 223 H 146 H Alkaline Phosphatase Ammonia Troponin T C-Reactive Protein 7.70 H Albumin Triglycerides HDL Cholesterol Arterial Blood Glucose Arterial Blood Ionized Calcium 03/07/21 03/07/21 03/07/21 08:25 12:47 17:20 WBC RBC Hgb Hct MCH RDW Lymph % (Auto) Lymph # (Auto) [place] # (Auto) Seg Neutrophils % Seg Neutrophils # POC ABG pO2 ABG Hemoglobin ABG Oxyhemoglobin ABG Sodium ABG Potassium ABG Chloride ABG Glucose Sodium Potassium Chloride Carbon Dioxide BUN Creatinine Glucose POC Glucose 207 H 257 H 174 H Alkaline Phosphatase Ammonia Troponin T C-Reactive Protein Albumin Triglycerides HDL Cholesterol Arterial Blood Glucose Arterial Blood Ionized Calcium 03/07/21 03/08/21 03/08/21 23:15 06:27 07:49 WBC RBC Hgb Hct MCH RDW Lymph % (Auto) Lymph # (Auto) [place] # (Auto) Seg Neutrophils % Seg Neutrophils # POC ABG pO2 ABG Hemoglobin ABG Oxyhemoglobin ABG Sodium ABG Potassium ABG Chloride ABG Glucose Sodium 136 L 136 L Potassium 6.3 H* Chloride 90.8 L 90.6 L Carbon Dioxide BUN 75 H 79 H Creatinine 9.3 H 9.4 H Glucose 260 H 297 H POC Glucose 174 H Alkaline Phosphatase Ammonia Troponin T C-Reactive Protein Albumin Triglycerides HDL Cholesterol Arterial Blood Glucose Arterial Blood Ionized Calcium 03/08/21 03/09/21 03/09/21 12:04 03:12 06:13 WBC RBC Hgb Hct MCH RDW Lymph % (Auto) Lymph # (Auto) [place] # (Auto) Seg Neutrophils % Seg Neutrophils # POC ABG pO2 ABG Hemoglobin ABG Oxyhemoglobin ABG Sodium ABG Potassium ABG Chloride ABG Glucose Sodium Potassium Chloride Carbon Dioxide BUN Creatinine Glucose POC Glucose 291 H 201 H 178 H Alkaline Phosphatase Ammonia Troponin T C-Reactive Protein Albumin Triglycerides HDL Cholesterol Arterial Blood Glucose Arterial Blood Ionized Calcium 03/09/21 03/09/21 03/09/21 07:51 09:54 11:19 WBC 13.9 H RBC 3.20 L Hgb 8.9 L Hct 28.0 L MCH RDW 17.1 H Lymph % (Auto) Lymph # (Auto) [place] # (Auto) Seg Neutrophils % Seg Neutrophils # POC ABG pO2 ABG Hemoglobin ABG Oxyhemoglobin ABG Sodium ABG Potassium ABG Chloride ABG Glucose Sodium Potassium Chloride Carbon Dioxide BUN Creatinine Glucose POC Glucose 198 H 110 H Alkaline Phosphatase Ammonia Troponin T C-Reactive Protein Albumin Triglycerides HDL Cholesterol Arterial Blood Glucose Arterial Blood Ionized Calcium 03/09/21 03/09/21 03/09/21 16:10 23:23 Unknown WBC RBC Hgb Hct MCH RDW Lymph % (Auto) Lymph # (Auto) [place] # (Auto) Seg Neutrophils % Seg Neutrophils # POC ABG pO2 ABG Hemoglobin ABG Oxyhemoglobin ABG Sodium ABG Potassium ABG Chloride ABG Glucose Sodium Potassium Chloride 95.6 L Carbon Dioxide BUN 52 H Creatinine 6.4 H Glucose 190 H POC Glucose 140 H 126 H Alkaline Phosphatase 208 H Ammonia Troponin T C-Reactive Protein Albumin 3.6 L Triglycerides HDL Cholesterol Arterial Blood Glucose Arterial Blood Ionized Calcium 03/10/21 03/10/21 03/10/21 05:44 05:44 12:39 WBC 12.6 H RBC 3.11 L Hgb 8.8 L Hct 26.7 L MCH RDW 16.9 H Lymph % (Auto) Lymph # (Auto) [place] # (Auto) Seg Neutrophils % Seg Neutrophils # POC ABG pO2 ABG Hemoglobin ABG Oxyhemoglobin ABG Sodium ABG Potassium ABG Chloride ABG Glucose Sodium Potassium Chloride 94.6 L Carbon Dioxide 20 L BUN 76 H Creatinine 8.6 H Glucose 172 H POC Glucose 201 H Alkaline Phosphatase 198 H Ammonia Troponin T C-Reactive Protein Albumin 3.7 L Triglycerides HDL Cholesterol Arterial Blood Glucose Arterial Blood Ionized Calcium 03/10/21 03/10/21 03/11/21 17:38 23:59 03:25 WBC 14.4 H RBC 3.37 L Hgb 9.2 L Hct 28.7 L MCH 27 L RDW 17.1 H Lymph % (Auto) Lymph # (Auto) [place] # (Auto) Seg Neutrophils % Seg Neutrophils # POC ABG pO2 ABG Hemoglobin ABG Oxyhemoglobin ABG Sodium ABG Potassium ABG Chloride ABG Glucose Sodium Potassium Chloride Carbon Dioxide BUN Creatinine Glucose POC Glucose 179 H 173 H Alkaline Phosphatase Ammonia Troponin T C-Reactive Protein Albumin Triglycerides HDL Cholesterol Arterial Blood Glucose Arterial Blood Ionized Calcium 03/11/21 03/11/21 03/12/21 03:25 05:45 05:06 WBC RBC Hgb Hct MCH RDW Lymph % (Auto) Lymph # (Auto) [place] # (Auto) Seg Neutrophils % Seg Neutrophils # POC ABG pO2 ABG Hemoglobin ABG Oxyhemoglobin ABG Sodium ABG Potassium ABG Chloride ABG Glucose Sodium 136 L Potassium Chloride 92.3 L Carbon Dioxide BUN 45 H Creatinine 5.6 H Glucose 201 H POC Glucose 214 H 163 H Alkaline Phosphatase 195 H Ammonia Troponin T C-Reactive Protein Albumin 3.8 L Triglycerides HDL Cholesterol Arterial Blood Glucose Arterial Blood Ionized Calcium
[2021-03-12] MEDS: levETIRAcetam 500 MG in DEXTROSE 5% IN WATER 100 ML IV SCH (15:16)
--- NOTE | 2021-03-12 20:58 | Progress Note ---
Assessment and Plan - Patient Problems (1) ESRD (end stage renal disease) on dialysis Current Visit: Yes Status: Chronic Plan to address problem: cont HD on TTS schedule (2) Hyperkalemia Current Visit: No Status: Acute Plan to address problem: corrected with HD, cont 2g K renal diet. (3) Hyponatremia Current Visit: Yes Status: Acute Plan to address problem: Probably volume related. Improved with fluid removal on dialysis. (4) Metabolic acidosis Current Visit: Yes Status: Acute Plan to address problem: Uremic acidosis, to be corrected with HD (5) Hypertensive chronic kidney disease with stage 5 chronic kidney disease or end stage renal disease Current Visit: No Status: Chronic Plan to address problem: Blood pressure elevated on presentation now improving. Follow blood pressure on current medications (6) Seizure disorder Current Visit: No Status: Acute Plan to address problem: Continue management by neurologist. (7) Type 2 diabetes mellitus with diabetic chronic kidney disease Current Visit: No Status: Chronic Qualifiers: Diabetes mellitus long-term insulin use: with intermediate project manager use Chronic kidney disease stage: on chronic dialysis Qualified Code(s): E11.22 - Type 2 diabetes mellitus with diabetic chronic kidney disease; N18.6 - End stage renal disease; Z79.4 - [facility] (current) use of insulin; Z99.2 - Dependence on renal dialysis Plan to address problem: Blood sugar management by primary attending Subjective Date of service: 03/12/21 Principal diagnosis: Change mentation , ESRD,Hx of seizure Interval history: Pt awake, alert, in no acute distress, denies CP, SOB, palpitations, fever, chills, n/v/d Objective - Vital Signs Vital signs: Vital Signs - 12hr 03/12/21 03/12/21 03/12/21 09:17 09:30 10:00 Temperature Pulse Rate 100 H 102 H Respiratory Rate Blood Pressure 183/69 O2 Sat by Pulse 96 Oximetry O2 Sat by Pulse Oximetry [ Anterior Bilateral] 03/12/21 03/12/21 03/12/21 10:25 10:30 10:45 Temperature 97.2 F L Pulse Rate 105 H 104 H 110 H Respiratory 20 Rate Blood Pressure 153/70 146/68 106/59 O2 Sat by Pulse Oximetry O2 Sat by Pulse 98 Oximetry [ Anterior Bilateral] 03/12/21 03/12/21 03/12/21 11:00 11:15 11:30 Temperature Pulse Rate 108 H 108 H 102 H Respiratory Rate Blood Pressure 109/58 120/59 128/67 O2 Sat by Pulse Oximetry O2 Sat by Pulse Oximetry [ Anterior Bilateral] 03/12/21 03/12/21 03/12/21 11:45 12:00 12:15 Temperature Pulse Rate 110 H 111 H 111 H Respiratory Rate Blood Pressure 115/61 106/55 110/53 O2 Sat by Pulse Oximetry O2 Sat by Pulse Oximetry [ Anterior Bilateral] 03/12/21 03/12/21 03/12/21 12:30 12:45 13:00 Temperature Pulse Rate 111 H 112 H 111 H Respiratory Rate Blood Pressure 104/52 109/51 105/44 O2 Sat by Pulse Oximetry O2 Sat by Pulse Oximetry [ Anterior Bilateral] 03/12/21 03/12/21 03/12/21 13:40 16:12 20:47 Temperature 98.7 F 98.4 F Pulse Rate 112 H 115 H Respiratory 18 18 Rate Blood Pressure 126/62 147/75 O2 Sat by Pulse 94 97 Oximetry O2 Sat by Pulse 98 Oximetry [ Anterior Bilateral] - General Appearance General appearance: well-developed, well-nourished, appears stated age EENT: ATNC, PERRL, mucous membranes moist Neck: no JVD Respiratory: Present: Clear to Ascultation Cardiology: regular, S1S2 Gastrointestinal: normoactive bowel sounds Integumentary: no rash Neurologic: no focal deficit, alert and oriented x3, strength 5/5, CN 3-12 intact Psychiatric: mood/affect appropriate - Lab 03/11/21 03:25 03/11/21 03:25 Most recent lab results ABG pH 7.431 (7.320-7.450) 03/05/21 16:15 ABG O2 Saturation 94.6 (0-100) 03/05/21 16:15 Calcium 9.8 mg/dL (8.4-10.2) 03/11/21 03:25 Medications & Allergies - Medications Allergies/Adverse Reactions: Allergies ibuprofen Allergy (Verified 06/24/17 17:09) Rash Home Medications: Home Medications Medication Instructions Recorded Confirmed Last Taken Type Gabapentin 600 mg PO TID 08/27/15 10/31/18 08/09/17 History Ferric Citrate (Nf) [Auryxia] 210 mg PO TID 10/31/18 10/31/18 Unknown History Insulin Aspart (Nf) [NovoLOG 15 - 20 units SUB-Q DAILY@0900 10/31/18 10/31/18 Unknown History Flexpen] Insulin Aspart (Nf) [NovoLOG 15 - 20 units SUB-Q DAILY@1530 10/31/18 10/31/18 Unknown History Flexpen] Insulin Glargine,Hum.rec.anlog 15 - 20 units SUB-Q DAILY@2100 PRN 10/31/18 10/31/18 Unknown History [Lantus Solostar] AtorvaSTATin [Lipitor] 40 mg PO DAILY #30 tablet 11/02/18 Unknown Rx amLODIPine 10 mg PO DAILY #30 tablet 11/02/18 Unknown Rx cloNIDine [Catapres] 0.1 mg PO Q8HR #90 tablet 11/02/18 Unknown Rx levETIRAcetam [Keppra TAB] 750 mg PO BID #60 tablet 11/02/18 Unknown Rx oxyCODONE /ACETAMINOPHEN [Percocet 1 tab PO Q6H PRN #8 tablet 11/02/18 Unknown Rx 5/325 mg] Active Medications: Generic Name Dose Route Start Last Admin Trade Name Freq PRN Reason Stop Dose Admin Acetaminophen 650 mg 03/05/21 06:13 Acetaminophen 650 Mg Rect Supp LA Q6H PRN Pain MILD(1-3)/Fever >100.5/LEE Amlodipine Besylate 10 mg 03/11/21 10:00 03/12/21 09:17 Amlodipine 10 Mg Tab PO 10 mg DAILY LORENE Administration Lipase/Protease/Amylase 1 each 03/09/21 15:54 Lipase 10,500/Protease 25,000/Amylase 43,750 (Units) Dr Gongora FEEDTUBE PRN PRN For Clogged Feeding Tube Atorvastatin Calcium 40 mg 03/10/21 22:00 03/11/21 21:15 Atorvastatin 40 Mg Tab PO 40 mg QHS LORENE Administration Clonidine HCl 0.2 mg 03/09/21 11:00 03/11/21 00:00 Clonidine Tts 0.2 Mg/24 Hr Patch TD 0.2 mg Mo LORENE Administration Clopidogrel Bisulfate 75 mg 03/10/21 14:00 03/12/21 09:18 Clopidogrel 75 Mg Tab PO 75 mg QDAY LORENE Administration Dextrose 0 ml 03/08/21 12:30 Dextrose 50% In Water (25gm) 50 Ml Syringe IV ONCE PRN Hypoglycemia Heparin Sodium (Porcine) 5,000 unit 03/05/21 14:00 03/12/21 14:19 Heparin 5,000 Unit/1 Ml Vial SUB-Q 5,000 unit Q8HR LORENE Administration Hydralazine HCl 10 mg 03/05/21 06:43 03/11/21 00:40 Hydralazine 20 Mg/1 Ml Inj IV 10 mg Q4HR PRN Administration Blood Pressure Sodium Chloride 100 mls @ 999 mls/hr 03/09/21 10:02 Nacl 0.9% IV DESIREE PRN Hypotension Lacosamide 100 mg/ Sodium 110 mls @ 100 mls/hr 03/10/21 14:00 03/12/21 15:15 Chloride IV 100 mls/hr Q12H LORENE Administration Levetiracetam 500 mg/ Dextrose 105 mls @ 400 mls/hr 03/11/21 14:00 03/12/21 15:16 IV 400 mls/hr DAILY LORENE Administration Insulin Human Lispro 0 unit 03/10/21 12:00 03/12/21 12:35 Insulin Lispro 100 Unit/Ml SUB-Q Not Given Q6HR [facility] Protocol Lorazepam 2 mg 03/05/21 07:00 03/10/21 15:27 Lorazepam 2 Mg/Ml Vial IV 2 mg Q4H PRN Administration Seizures Magnesium Hydroxide 30 ml 03/05/21 06:13 Magnesium Hydroxide (Mom) Oral Liqd Udc PO Q4H PRN Constipation Morphine Sulfate 2 mg 03/05/21 06:13 Morphine 2 Mg/1 Ml Inj IV Q4H PRN Pain, Moderate (4-6) Morphine Sulfate 4 mg 03/05/21 06:13 03/11/21 01:06 Morphine 4 Mg/1 Ml Inj IV 4 mg Q4H PRN Administration Pain , Severe (7-10) Phenytoin 100 mg 03/05/21 22:00 03/12/21 05:00 Phenytoin 100 Mg/2 Ml Vial IV Not Given Q8HR LORENE Simple Syrup 15 ml 03/10/21 11:44 Simple Syrup 15 Ml FEEDTUBE PRN PRN Hypoglycemia Simple Syrup 30 ml 03/10/21 11:44 Simple Syrup 15 Ml FEEDTUBE PRN PRN Hypoglycemia Sodium Bicarbonate 325 mg 03/10/21 11:44 Sodium Bicarbonate 325 Mg Tab FEEDTUBE PRN PRN For Clogged Feeding Tube Sodium Chloride 10 ml 03/05/21 10:00 03/12/21 10:18 Sodium Chloride 0.9% 10 Ml Flush Syringe IV 10 ml BID LORENE Administration Sodium Chloride 10 ml 03/05/21 06:13 Sodium Chloride 0.9% 10 Ml Flush Syringe IV PRN PRN LINE FLUSH
[2021-03-13] MEDS: INSULIN LISPRO 100 UNIT/ML SUB-Q SCH ×4 (00:28→18:37)
[2021-03-13] MEDS: LACOSAMIDE 100 MG in SODIUM CHLORIDE 0.9% 100 ML IV SCH ×2 (03:05→14:38)
[2021-03-13] MEDS: PHENYTOIN 100 MG/2 ML VIAL IV SCH (06:59)
[2021-03-13] MEDS: HEPARIN 5,000 UNIT/1 ML VIAL SUB-Q SCH ×3 (07:01→21:36)
--- NOTE | 2021-03-13 08:01 | Progress Note ---
Assessment and Plan Assessment and plan: 50-year-old female with known history of end-stage renal disease on HD, seizure disorder, CVA with left side deficits, diabetes mellitus, and hypertension with acute encephalophy and electrolyte imbalance secondary to uremia. hospitalist course to date: 03/11/2021: mentation is improved. Pulls lines so continues to be in restraints. Awaiting repeat EEG by neurology and interpretation. Swallowing still remains problematic. Will continue to follow with speech recommendations. CM consulted for rehab placement. Does not need ICU level of care, Plan to transfer to medical floor. 03/12/2021: mentation is improved, able to answer yes/no questions. Neuro recs noted, EEG findings noted below. will continue antiepileptics. Patient appears to have pulled NG tube again voicing that she wants to eat. Will follow speech recommendations for dysphagia recovery progress prior to re-attempting NG tube placement.. May need PEG tube. 03/13/2021: Able to tolerate po. Mechanical soft diet and pills with apple sauce ordered. Seizure medication changed to po. unfortunately the patient tested positive for covid; this will make placement a challenge. Will coordinate with cm. Transfer orders placed to 3rd floor. Assessment and Plan: #Acute metabolic encephalopathy 2/2 multifactorial siezure and uremia # Hx of CVA with Lt. deficits - 03/05 CT head and MRI w/o contrast showed no acute abnormalities --remote lacunar infarct BG and brain stem. - Cont. dilantin, Keppra 500 mg IV daily, Vimpat per Neuro - PRN ativan for seizure - Seizure precaution - Neuro on consult - EEG is remarkable for recurent triphasic/BIBLED R>L on 03/06 improved on 03/09 EEG to prn triphasic waves and diffuse slowing #End stage renal disease on dialysis- Pt. is anuric #Hyperkalemia-improving #Hyponatremia- resolved - Possible HD today - Continue hemodialysis Per Nephro - Follow up labs in the am #Cardio: elevated Troponin possibly Renal related; H/o HTN - Troponin:0.034, 0.032; 03/05 EKG noted - Hypertensive today, will restart home antihypertensive - Continue clonidine patch and PRN hydralazine for SBP>160 ID: - Patient remains afebrile, VSS, - Mild leukocytosis noted, will continue to monitor - Am labs ordered #Endo: H/o T2DM (type 2 diabetes mellitus) - Cont Humalog sliding scale low-dose. #Advance Care Planning - Discharge planning ongoing - PT/OT eval and treat #DVT prophylaxis: SCDs, Heparin SubQ q8hrs History Interval history: Resting comfortably, no acute complaints. Hospitalist Physical - Physical exam Narrative exam: General appearance: well-developed, well-nourished, appears stated age EENT: ATNC, PERRL, mucous membranes moist Neck: no JVD, right IJ central line in place. Respiratory: Present: Clear to Ascultation Cardiology: regular, S1S2 Gastrointestinal: normoactive bowel sounds Integumentary: no rash Neurologic: no focal deficit, CN 3-12 intact - Constitutional Vitals: Temp Pulse Resp BP Pulse Ox 99.0 F 117 H 18 140/85 98 03/12/21 19:55 03/12/21 19:55 03/12/21 19:55 03/12/21 19:55 03/12/21 21:45 General appearance: Present: no acute distress, well-nourished HEART Score - HEART Score Troponin: Troponin T 0.032 ng/mL (0.00-0.029) H 03/05/21 15:46 Results - Labs CBC & Chem 7: 03/11/21 03:25 03/11/21 03:25 Labs: Laboratory Last Values WBC 14.4 K/mm3 (4.5-11.0) H 03/11/21 03:25 RBC 3.37 M/mm3 (3.65-5.03) L 03/11/21 03:25 Hgb 9.2 gm/dl (10.1-14.3) L 03/11/21 03:25 Hct 28.7 % (30.3-42.9) L 03/11/21 03:25 MCV 85 fl (79-97) 03/11/21 03:25 MCH 27 pg (28-32) L 03/11/21 03:25 MCHC 32 % (30-34) 03/11/21 03:25 RDW 17.1 % (13.2-15.2) H 03/11/21 03:25 Plt Count 181 K/mm3 (140-440) 03/11/21 03:25 Lymph % (Auto) 6.3 % (13.4-35.0) L 03/06/21 05:07 [place] % (Auto) 6.0 % (0.0-7.3) 03/06/21 05:07 Eos % (Auto) 0.2 % (0.0-4.3) 03/06/21 05:07 Baso % (Auto) 0.3 % (0.0-1.8) 03/06/21 05:07 Lymph # (Auto) 0.9 K/mm3 (1.2-5.4) L 03/06/21 05:07 [place] # (Auto) 0.9 K/mm3 (0.0-0.8) H 03/06/21 05:07 Eos # (Auto) 0.0 K/mm3 (0.0-0.4) 03/06/21 05:07 Baso # (Auto) 0.1 K/mm3 (0.0-0.1) 03/06/21 05:07 Seg Neutrophils % 87.2 % (40.0-70.0) H 03/06/21 05:07 Seg Neutrophils # 12.9 K/mm3 (1.8-7.7) H 03/06/21 05:07 ESR 78 mm/Hr (0-20) 03/06/21 15:29 PT 14.5 Sec. (12.2-14.9) 03/06/21 05:07 INR 1.08 (0.87-1.13) 03/06/21 05:07 ABG pH 7.431 (7.320-7.450) 03/05/21 16:15 POC ABG pCO2 37.1 mmHg (32.0-48.0) 03/05/21 16:15 POC ABG pO2 80.0 mmHg (83-108) L 03/05/21 16:15 POC ABG HCO3 24.1 03/05/21 16:15 ABG O2 Saturation 94.6 (0-100) 03/05/21 16:15 POC ABG Base Excess 0 03/05/21 16:15 ABG Hemoglobin 11.0 (12.0-17.5) L 03/05/21 16:15 ABG Oxyhemoglobin 93.3 (94-98) L 03/05/21 16:15 ABG Methemoglobin 0.3 (0.0-1.5) 03/05/21 16:15 ABG Sodium 131.5 mmol/L (136.0-145.0) L 03/05/21 16:15 ABG Potassium 5.1 mmol/L (3.40-4.50) H 03/05/21 16:15 ABG Chloride 95.0 mmol/L (98-107) L 03/05/21 16:15 ABG Glucose 302 mg/dL (65-95) H 03/05/21 16:15 Carboxyhemoglobin 1.1 (0.5-1.5) 03/05/21 16:15 FiO2 % 21.0 03/05/21 16:15 Sodium 136 mmol/L (137-145) L 03/11/21 03:25 Potassium 4.4 mmol/L (3.6-5.0) 03/11/21 03:25 Chloride 92.3 mmol/L (98-107) L 03/11/21 03:25 Carbon Dioxide 24 mmol/L (22-30) 03/11/21 03:25 Anion Gap 24 mmol/L 03/11/21 03:25 BUN 45 mg/dL (7-17) H 03/11/21 03:25 Creatinine 5.6 mg/dL (0.6-1.2) H 03/11/21 03:25 Estimated GFR 10 ml/min 03/11/21 03:25 BUN/Creatinine Ratio 8 % 03/11/21 03:25 Glucose 201 mg/dL (65-100) H 03/11/21 03:25 POC Glucose 154 mg/dL (70-105) H 03/12/21 21:57 Calcium 9.8 mg/dL (8.4-10.2) 03/11/21 03:25 Total Bilirubin 0.30 mg/dL (0.1-1.2) 03/11/21 03:25 AST 25 units/L (5-40) 03/11/21 03:25 ALT 13 units/L (7-56) 03/11/21 03:25 Alkaline Phosphatase 195 units/L (35-129) H 03/11/21 03:25 Ammonia 46.0 umol/L (25-60) 03/06/21 14:09 Troponin T 0.032 ng/mL (0.00-0.029) H 03/05/21 15:46 C-Reactive Protein 7.70 mg/dL (0.00-1.30) H 03/06/21 14:09 Total Protein 7.8 g/dL (6.3-8.2) 03/11/21 03:25 Albumin 3.8 g/dL (3.9-5) L 03/11/21 03:25 Albumin/Globulin Ratio 1.0 % 03/11/21 03:25 Triglycerides 363 mg/dL (2-149) H 03/05/21 04:39 Cholesterol 154 mg/dL (50-199) 03/05/21 04:39 LDL Cholesterol Direct 73 mg/dL (50-130) 03/05/21 04:39 HDL Cholesterol 34 mg/dL (40-59) L 03/05/21 04:39 Cholesterol/HDL Ratio 4.52 % 03/05/21 04:39 Vitamin B12 846.0 pg/mL (211-911) 03/06/21 14:09 TSH 2.530 mlU/mL (0.270-4.200) 03/06/21 14:09 Arterial Blood Glucose 302 mg/dL (65-95) H 03/05/21 16:15 Arterial Blood Ionized Calcium 4.1 mg/dL (4.6-5.3) L 03/05/21 16:15 Phenytoin 13.8 ug/mL (10.0-20.0) 03/10/21 15:55 Free Phenytoin 2.5 mg/L (1.0-2.0) H 03/09/21 03:40 Levetiracetam 32.3 mcg/mL (12.0-46.0) 03/05/21 15:46 Hepatitis A IgM Ab Non-reactive (NonReactive) 03/06/21 08:37 Hep Bs Antigen Nonreactive (Negative) 03/06/21 08:37 Hep B Core IgM Ab Non-reactive (NonReactive) 03/06/21 08:37 Hepatitis C Antibody Non-reactive (NonReactive) 03/06/21 08:37 [place]/IV: Voiding Method External Female Catheter Active Medications - Current Medications Current Medications: Generic Name Dose Route Start Last Admin Trade Name Freq PRN Reason Stop Dose Admin Acetaminophen 650 mg 03/05/21 06:13 Acetaminophen 650 Mg Rect Supp [place] Q6H PRN Pain MILD(1-3)/Fever >100.5/LEE Amlodipine Besylate 10 mg 03/11/21 10:00 03/12/21 09:17 Amlodipine 10 Mg Tab PO 10 mg DAILY LORENE Administration Lipase/Protease/Amylase 1 each 03/09/21 15:54 Lipase 10,500/Protease 25,000/Amylase 43,750 (Units) Dr Gongora FEEDTUBE PRN PRN For Clogged Feeding Tube Atorvastatin Calcium 40 mg 03/10/21 22:00 03/12/21 21:38 Atorvastatin 40 Mg Tab PO 40 mg QHS LORENE Administration Clonidine HCl 0.2 mg 03/09/21 11:00 03/11/21 00:00 Clonidine Tts 0.2 Mg/24 Hr Patch TD 0.2 mg Mo LORENE Administration Clopidogrel Bisulfate 75 mg 03/10/21 14:00 03/12/21 09:18 Clopidogrel 75 Mg Tab PO 75 mg QDAY LORENE Administration Dextrose 0 ml 03/08/21 12:30 Dextrose 50% In Water (25gm) 50 Ml Syringe IV ONCE PRN Hypoglycemia Heparin Sodium (Porcine) 5,000 unit 03/05/21 14:00 03/13/21 07:01 Heparin 5,000 Unit/1 Ml Vial SUB-Q 5,000 unit Q8HR LORENE Administration Hydralazine HCl 10 mg 03/05/21 06:43 03/11/21 00:40 Hydralazine 20 Mg/1 Ml Inj IV 10 mg Q4HR PRN Administration Blood Pressure Sodium Chloride 100 mls @ 999 mls/hr 03/09/21 10:02 Nacl 0.9% IV DESIREE PRN Hypotension Lacosamide 100 mg/ Sodium 110 mls @ 100 mls/hr 03/10/21 14:00 03/13/21 03:05 Chloride IV 100 mls/hr Q12H LORENE Administration Levetiracetam 500 mg/ Dextrose 105 mls @ 400 mls/hr 03/11/21 14:00 03/12/21 15:16 IV 400 mls/hr DAILY LORENE Administration Insulin Human Lispro 0 unit 03/10/21 12:00 03/13/21 07:06 Insulin Lispro 100 Unit/Ml SUB-Q Not Given Q6HR LORENE Protocol Lorazepam 2 mg 03/05/21 07:00 03/10/21 15:27 Lorazepam 2 Mg/Ml Vial IV 2 mg Q4H PRN Administration Seizures Magnesium Hydroxide 30 ml 03/05/21 06:13 Magnesium Hydroxide (Mom) Oral Liqd Udc PO Q4H PRN Constipation Morphine Sulfate 2 mg 03/05/21 06:13 Morphine 2 Mg/1 Ml Inj IV Q4H PRN Pain, Moderate (4-6) Morphine Sulfate 4 mg 03/05/21 06:13 03/11/21 01:06 Morphine 4 Mg/1 Ml Inj IV 4 mg Q4H PRN Administration Pain , Severe (7-10) Phenytoin 100 mg 03/05/21 22:00 03/13/21 06:59 Phenytoin 100 Mg/2 Ml Vial IV 100 mg Q8HR LORENE Administration Simple Syrup 15 ml 03/10/21 11:44 Simple Syrup 15 Ml FEEDTUBE PRN PRN Hypoglycemia Simple Syrup 30 ml 03/10/21 11:44 Simple Syrup 15 Ml FEEDTUBE PRN PRN Hypoglycemia Sodium Bicarbonate 325 mg 03/10/21 11:44 Sodium Bicarbonate 325 Mg Tab FEEDTUBE PRN PRN For Clogged Feeding Tube Sodium Chloride 10 ml 03/05/21 10:00 03/12/21 21:39 Sodium Chloride 0.9% 10 Ml Flush Syringe IV 10 ml BID LORENE Administration Sodium Chloride 10 ml 03/05/21 06:13 Sodium Chloride 0.9% 10 Ml Flush Syringe IV PRN PRN LINE FLUSH Nutrition/Malnutrition Assess - Dietary Evaluation Nutrition/Malnutrition Findings: Nutrition Notes Start: 03/05/21 06:45 Freq: Status: Active Protocol: Document 03/12/21 16:12 GB (Rec: 03/12/21 16:24 GB [id number]) Nutrition Notes Initial or Follow up Reassessment Current Diagnosis CKD (stage V CKD),Diabetes, Hypertension,Stroke Other Pertinent Diagnosis Acute encephalopathy, Uremia, Seizure d/o Current Diet NPO - TF Nepro @ goal 45ml/hr for 24hrs Labs/Tests 03/11: Na 136 low, (BUN 45, creatinine 5.6) both elevated [id number] and showing improvement, glucose 201 elevated [id number] fluctuating highs, AlkP 195 elevated [id number] showing improvement Pertinent Medications Dilantin q8h (via i.v.) Height 6 ft Weight 113.4 kg [place] Body Weight (kg) 72.72 BMI 33.9 Weight change and time frame No significant weight changes at this time. Weight Status Obese Subjective/Other Information Pt accepted to [facility]. TF rate for [facility]: 55ml/hr for 20hrs (provides: 1980kcal, 89g , 800ml) Percent of energy/protein needs met: 100% Burn Absent Trauma Absent GI Symptoms None Difficulty In Swallowing,Chewing Food Allergy No Current % PO Other Minimum of two criteria No #2 Nutrition Diagnosis Swallowing difficulty,Biting/ Chewing (masticatory) difficulty Etiology chewing and swallowing concerns As Evidenced by Signs and Symptoms swallow evaluation, followed by [facility] GLOSSER #1 Nutrition Diagnosis Inadequate oral intake Comments: TF started and tolerated Etiology encephalopthy As Evidenced by Signs and Symptoms pt with unsafe swallow at this time, per FUR GLOSSER evaluation Diagnosis Progress(for reassessment Resolved documentation) Is patient on ventilator? No Is Patient Ambulatory and/or Out of Bed No REE-([facility]-confined to bed) 2248.548 Kcal/Kg value to use for calculation 20 Approximate Energy Requirements Using 2268 kcal/Kg Calculation Used for Recommendations Kcal/kg Additional Notes Protein: 0.7-1 g/kg @113k -113g Fluids: 1 ml/kcal or per MD Nutrition Intervention Change Diet Order: Advance per FUR GLOSSER recommendation via swallow evaluations Nutrition Support: Nepro at 45ml/hr with 175ml water flush q4h. For NH goal rate of 55ml/hr @ 20hrs daily Goal #1 TF tolerance Goal #2 TF to meet at least 75% energy and pro needs Revisit per MD consult or patient Sign Off request: Additional Comments Discharging to NC
[2021-03-13] MEDS: CLOPIDOGREL 75 MG TAB PO SCH (09:23)
[2021-03-13] MEDS: levETIRAcetam 500 MG in DEXTROSE 5% IN WATER 100 ML IV SCH (09:27)
--- NOTE | 2021-03-13 10:51 | Progress Note ---
Assessment and Plan Assessment and Plan Assessment and plan: 50-year-old female with known history of end-stage renal disease on HD, seizure disorder, CVA with left side deficits, diabetes mellitus, and hypertension with acute encephalophy and electrolyte imbalance secondary to uremia. #Acute metabolic encephalopathy 2/2 to uremia - 03/05 CT head and MRI w/o contrast showed no acute abnormalities --remote lacunar infarct BG and brain stem. - Cut down dilantin IV 100 BID last level is #13.8 ,free dilantin is #2.5 - Vimpat 100 mg IV bid and Stop Keppra due to side effect - PRN ativan for seizure - Seizure precaution - EEG is remarkable for recurent triphasic/BIBLED R>L on 03/06 improved on 03/09 EEG to prn triphasic waves and diffuse slowing # Hx of CVA -she is with left side weakness upper and lower -CT and MRI brain noted no acute event -started on plavix 75 mg daily and lipitor 40 mg -She is allergic to motrin ? rash #End stage renal disease on dialysis- Pt. is anuric #Hyperkalemia #Hyponatremia - Continue hemodialysis, S/p urgent HD on 03/08 #Cardio: elevated Troponin possibly Renal related; H/o HTN - Troponin:0.034, 0.032; 03/05 EKG noted GI: - Patient currently NPO, Nursing Bedside swallow ordered. - Possible Speech Eval if patient fails bedside swallow ID: - Patient remains afebrile, VSS, #Endo: H/o T2DM (type 2 diabetes mellitus) - Cont Humalog sliding scale low-dose. #Advance Care Planning - Discharge planning ongoing - PT/OT eval and treat - Will place a call to listed contact to update them on patient's status #DVT prophylaxis: SCDs, Heparin SubQ q8hrs PLAN 1-swallow evaluation she pulled [place] tube . see no reason for dysphagia other than change in mentation-- now she is much better 2- maintain Plavix and Lipitor 3- Control BP 4- Cut down phenytoin to 100 mg bid and stop keppra 5- Maintain Vimpat 100 mg bid 6- Pt/ST evaluate 7- Neurology follow up--Goal is to aditi Phenytoin and eventually stop in 2-4 weeks will sign off Subjective Date of service: 03/13/21 Principal diagnosis: Change mentation , ESRD,Hx of seizure Interval history: she is with old left sided weakness and hx of seizure talking today and speech is not clear she is more oriented had dialysis yesterday , hungry wants food had [place] tube puled out BUN/Cr#45/5.6 EEG showed tiphasic waves /BIBLED on intial EEG with right side preference -- recent EEG is remarkable for disappearance of BIBLED and mild back ground slowing -she is on Keppra ,Vimpat and phenytoin last level is 13.8 free phenytoin level is#2.5 keppra level is #32.3 Objective - Vital Sign Vital Signs - 12hr 03/13/21 03/13/21 08:00 08:27 Pulse Rate 117 H O2 Sat by Pulse 98 96 Oximetry - General Apperance Constitutional: comfortable - EENT EENT: PERRL, mucous membranes moist - Respiratory Respiratory: chest non-tender, lungs clear, rhonchi - Cardiovascular Cardiovascular: regular rate, normal S1, normal S2 Extremities: no peripheral edema bilat, no clubbing, cyanosis - Gastrointestinal Gastrointestinal: normoactive bowel sounds - Integumentary Integumentary: normal - Neurologic Cranial nerve examination: PERRL, EOMI, other (mild left facial droop and and unclear speech ) Detailed motor examination: other (left side 2/5 upper and lower planter is down and gait is unable to walk ) - Laboratory Findings CBC and BMP: 03/11/21 03:25 03/11/21 03:25 Abnormal Lab Findings: Abnormal Labs 03/05/21 03/05/21 03/05/21 02:34 04:14 04:39 WBC RBC 3.51 L Hgb 9.9 L Hct 30.0 L MCH RDW 16.8 H Lymph % (Auto) Lymph # (Auto) [place] # (Auto) Seg Neutrophils % 77.6 H Seg Neutrophils # POC ABG pO2 ABG Hemoglobin ABG Oxyhemoglobin ABG Sodium ABG Potassium ABG Chloride ABG Glucose Sodium Potassium Chloride Carbon Dioxide BUN Creatinine Glucose POC Glucose 167 H 198 H Alkaline Phosphatase Ammonia Troponin T C-Reactive Protein Albumin Triglycerides HDL Cholesterol Arterial Blood Glucose Arterial Blood Ionized Calcium Free Phenytoin 03/05/21 03/05/21 03/05/21 04:39 04:39 07:30 WBC RBC Hgb Hct MCH RDW Lymph % (Auto) Lymph # (Auto) [place] # (Auto) Seg Neutrophils % Seg Neutrophils # POC ABG pO2 ABG Hemoglobin ABG Oxyhemoglobin ABG Sodium ABG Potassium ABG Chloride ABG Glucose Sodium Potassium Chloride 95.9 L Carbon Dioxide BUN 46 H Creatinine 7.6 H Glucose 243 H POC Glucose 212 H Alkaline Phosphatase 238 H Ammonia 17.0 L Troponin T 0.034 H C-Reactive Protein Albumin 3.8 L Triglycerides 363 H HDL Cholesterol 34 L Arterial Blood Glucose Arterial Blood Ionized Calcium Free Phenytoin 03/05/21 03/05/21 03/05/21 11:39 15:46 16:15 WBC RBC Hgb Hct MCH RDW Lymph % (Auto) Lymph # (Auto) [place] # (Auto) Seg Neutrophils % Seg Neutrophils # POC ABG pO2 80.0 L ABG Hemoglobin 11.0 L ABG Oxyhemoglobin 93.3 L ABG Sodium 131.5 L ABG Potassium 5.1 H ABG Chloride 95.0 L ABG Glucose 302 H Sodium Potassium Chloride Carbon Dioxide BUN Creatinine Glucose POC Glucose 212 H Alkaline Phosphatase Ammonia Troponin T 0.032 H C-Reactive Protein Albumin Triglycerides HDL Cholesterol Arterial Blood Glucose 302 H Arterial Blood Ionized Calcium 4.1 L Free Phenytoin 03/05/21 03/05/21 03/06/21 17:32 21:56 05:07 WBC 14.8 H RBC Hgb Hct MCH 27 L RDW 17.0 H Lymph % (Auto) 6.3 L Lymph # (Auto) 0.9 L [place] # (Auto) 0.9 H Seg Neutrophils % 87.2 H Seg Neutrophils # 12.9 H POC ABG pO2 ABG Hemoglobin ABG Oxyhemoglobin ABG Sodium ABG Potassium ABG Chloride ABG Glucose Sodium Potassium Chloride Carbon Dioxide BUN Creatinine Glucose POC Glucose 245 H 236 H Alkaline Phosphatase Ammonia Troponin T C-Reactive Protein Albumin Triglycerides HDL Cholesterol Arterial Blood Glucose Arterial Blood Ionized Calcium Free Phenytoin 03/06/21 03/06/21 03/06/21 08:07 08:12 11:49 WBC RBC Hgb Hct MCH RDW Lymph % (Auto) Lymph # (Auto) [place] # (Auto) Seg Neutrophils % Seg Neutrophils # POC ABG pO2 ABG Hemoglobin ABG Oxyhemoglobin ABG Sodium ABG Potassium ABG Chloride ABG Glucose Sodium 131 L Potassium 5.8 H D Chloride 90.6 L Carbon Dioxide 16 L D BUN 65 H Creatinine 9.0 H Glucose 388 H POC Glucose 321 H 315 H Alkaline Phosphatase Ammonia Troponin T C-Reactive Protein Albumin Triglycerides HDL Cholesterol Arterial Blood Glucose Arterial Blood Ionized Calcium Free Phenytoin 03/06/21 03/06/21 03/07/21 14:09 17:36 01:23 WBC RBC Hgb Hct MCH RDW Lymph % (Auto) Lymph # (Auto) [place] # (Auto) Seg Neutrophils % Seg Neutrophils # POC ABG pO2 ABG Hemoglobin ABG Oxyhemoglobin ABG Sodium ABG Potassium ABG Chloride ABG Glucose Sodium Potassium Chloride Carbon Dioxide BUN Creatinine Glucose POC Glucose 223 H 146 H Alkaline Phosphatase Ammonia Troponin T C-Reactive Protein 7.70 H Albumin Triglycerides HDL Cholesterol Arterial Blood Glucose Arterial Blood Ionized Calcium Free Phenytoin 03/07/21 03/07/21 03/07/21 08:25 12:47 17:20 WBC RBC Hgb Hct MCH RDW Lymph % (Auto) Lymph # (Auto) [place] # (Auto) Seg Neutrophils % Seg Neutrophils # POC ABG pO2 ABG Hemoglobin ABG Oxyhemoglobin ABG Sodium ABG Potassium ABG Chloride ABG Glucose Sodium Potassium Chloride Carbon Dioxide BUN Creatinine Glucose POC Glucose 207 H 257 H 174 H Alkaline Phosphatase Ammonia Troponin T C-Reactive Protein Albumin Triglycerides HDL Cholesterol Arterial Blood Glucose Arterial Blood Ionized Calcium Free Phenytoin 03/07/21 03/08/21 03/08/21 23:15 06:27 07:49 WBC RBC Hgb Hct MCH RDW Lymph % (Auto) Lymph # (Auto) [place] # (Auto) Seg Neutrophils % Seg Neutrophils # POC ABG pO2 ABG Hemoglobin ABG Oxyhemoglobin ABG Sodium ABG Potassium ABG Chloride ABG Glucose Sodium 136 L 136 L Potassium 6.3 H* Chloride 90.8 L 90.6 L Carbon Dioxide BUN 75 H 79 H Creatinine 9.3 H 9.4 H Glucose 260 H 297 H POC Glucose 174 H Alkaline Phosphatase Ammonia Troponin T C-Reactive Protein Albumin Triglycerides HDL Cholesterol Arterial Blood Glucose Arterial Blood Ionized Calcium Free Phenytoin 03/08/21 03/09/21 03/09/21 12:04 03:12 03:40 WBC RBC Hgb Hct MCH RDW Lymph % (Auto) Lymph # (Auto) [place] # (Auto) Seg Neutrophils % Seg Neutrophils # POC ABG pO2 ABG Hemoglobin ABG Oxyhemoglobin ABG Sodium ABG Potassium ABG Chloride ABG Glucose Sodium Potassium Chloride Carbon Dioxide BUN Creatinine Glucose POC Glucose 291 H 201 H Alkaline Phosphatase Ammonia Troponin T C-Reactive Protein Albumin Triglycerides HDL Cholesterol Arterial Blood Glucose Arterial Blood Ionized Calcium Free Phenytoin 2.5 H 03/09/21 03/09/21 03/09/21 06:13 07:51 09:54 WBC 13.9 H RBC 3.20 L Hgb 8.9 L Hct 28.0 L MCH RDW 17.1 H Lymph % (Auto) Lymph # (Auto) [place] # (Auto) Seg Neutrophils % Seg Neutrophils # POC ABG pO2 ABG Hemoglobin ABG Oxyhemoglobin ABG Sodium ABG Potassium ABG Chloride ABG Glucose Sodium Potassium Chloride Carbon Dioxide BUN Creatinine Glucose POC Glucose 178 H 198 H Alkaline Phosphatase Ammonia Troponin T C-Reactive Protein Albumin Triglycerides HDL Cholesterol Arterial Blood Glucose Arterial Blood Ionized Calcium Free Phenytoin 03/09/21 03/09/21 03/09/21 11:19 16:10 23:23 WBC RBC Hgb Hct MCH RDW Lymph % (Auto) Lymph # (Auto) [place] # (Auto) Seg Neutrophils % Seg Neutrophils # POC ABG pO2 ABG Hemoglobin ABG Oxyhemoglobin ABG Sodium ABG Potassium ABG Chloride ABG Glucose Sodium Potassium Chloride Carbon Dioxide BUN Creatinine Glucose POC Glucose 110 H 140 H 126 H Alkaline Phosphatase Ammonia Troponin T C-Reactive Protein Albumin Triglycerides HDL Cholesterol Arterial Blood Glucose Arterial Blood Ionized Calcium Free Phenytoin 03/09/21 03/10/21 03/10/21 Unknown 05:44 05:44 WBC 12.6 H RBC 3.11 L Hgb 8.8 L Hct 26.7 L MCH RDW 16.9 H Lymph % (Auto) Lymph # (Auto) [place] # (Auto) Seg Neutrophils % Seg Neutrophils # POC ABG pO2 ABG Hemoglobin ABG Oxyhemoglobin ABG Sodium ABG Potassium ABG Chloride ABG Glucose Sodium Potassium Chloride 95.6 L 94.6 L Carbon Dioxide 20 L BUN 52 H 76 H Creatinine 6.4 H 8.6 H Glucose 190 H 172 H POC Glucose Alkaline Phosphatase 208 H 198 H Ammonia Troponin T C-Reactive Protein Albumin 3.6 L 3.7 L Triglycerides HDL Cholesterol Arterial Blood Glucose Arterial Blood Ionized Calcium Free Phenytoin 03/10/21 03/10/21 03/10/21 12:39 17:38 23:59 WBC RBC Hgb Hct MCH RDW Lymph % (Auto) Lymph # (Auto) [place] # (Auto) Seg Neutrophils % Seg Neutrophils # POC ABG pO2 ABG Hemoglobin ABG Oxyhemoglobin ABG Sodium ABG Potassium ABG Chloride ABG Glucose Sodium Potassium Chloride Carbon Dioxide BUN Creatinine Glucose POC Glucose 201 H 179 H 173 H Alkaline Phosphatase Ammonia Troponin T C-Reactive Protein Albumin Triglycerides HDL Cholesterol Arterial Blood Glucose Arterial Blood Ionized Calcium Free Phenytoin 03/11/21 03/11/21 03/11/21 03:25 03:25 05:45 WBC 14.4 H RBC 3.37 L Hgb 9.2 L Hct 28.7 L MCH 27 L RDW 17.1 H Lymph % (Auto) Lymph # (Auto) [place] # (Auto) Seg Neutrophils % Seg Neutrophils # POC ABG pO2 ABG Hemoglobin ABG Oxyhemoglobin ABG Sodium ABG Potassium ABG Chloride ABG Glucose Sodium 136 L Potassium Chloride 92.3 L Carbon Dioxide BUN 45 H Creatinine 5.6 H Glucose 201 H POC Glucose 214 H Alkaline Phosphatase 195 H Ammonia Troponin T C-Reactive Protein Albumin 3.8 L Triglycerides HDL Cholesterol Arterial Blood Glucose Arterial Blood Ionized Calcium Free Phenytoin 03/12/21 03/12/21 03/12/21 05:06 16:11 21:57 WBC RBC Hgb Hct MCH RDW Lymph % (Auto) Lymph # (Auto) [place] # (Auto) Seg Neutrophils % Seg Neutrophils # POC ABG pO2 ABG Hemoglobin ABG Oxyhemoglobin ABG Sodium ABG Potassium ABG Chloride ABG Glucose Sodium Potassium Chloride Carbon Dioxide BUN Creatinine Glucose POC Glucose 163 H 137 H 154 H Alkaline Phosphatase Ammonia Troponin T C-Reactive Protein Albumin Triglycerides HDL Cholesterol Arterial Blood Glucose Arterial Blood Ionized Calcium Free Phenytoin 03/13/21 07:35 WBC RBC Hgb Hct MCH RDW Lymph % (Auto) Lymph # (Auto) [place] # (Auto) Seg Neutrophils % Seg Neutrophils # POC ABG pO2 ABG Hemoglobin ABG Oxyhemoglobin ABG Sodium ABG Potassium ABG Chloride ABG Glucose Sodium Potassium Chloride Carbon Dioxide BUN Creatinine Glucose POC Glucose 152 H Alkaline Phosphatase Ammonia Troponin T C-Reactive Protein Albumin Triglycerides HDL Cholesterol Arterial Blood Glucose Arterial Blood Ionized Calcium Free Phenytoin
[2021-03-13] MEDS: amLODIPine 10 MG TAB PO SCH (11:03)
--- NOTE | 2021-03-13 12:21 | Progress Note ---
Assessment and Plan - Patient Problems (1) ESRD (end stage renal disease) on dialysis Current Visit: Yes Status: Chronic Plan to address problem: cont HD on TTS schedule (2) Seizure disorder Current Visit: No Status: Acute Plan to address problem: Continue management by neurologist. (3) Hyperkalemia Current Visit: No Status: Acute Plan to address problem: corrected with HD, cont 2g K renal diet. (4) Hyponatremia Current Visit: Yes Status: Acute Plan to address problem: Probably volume related. Improved with fluid removal on dialysis. (5) Metabolic acidosis Current Visit: Yes Status: Acute Plan to address problem: Uremic acidosis, to be corrected with HD (6) Hypertensive chronic kidney disease with stage 5 chronic kidney disease or e nd stage renal disease Current Visit: No Status: Chronic Plan to address problem: Blood pressure elevated on presentation now improving. Follow blood pressure on current medications (7) Type 2 diabetes mellitus with diabetic chronic kidney disease Current Visit: No Status: Chronic Qualifiers: Diabetes mellitus fpc insulin use: with terminal press operator use Chronic kidney disease stage: on chronic dialysis Qualified Code(s): E11.22 - Type 2 diabetes mellitus with diabetic chronic kidney disease; N18.6 - End stage renal disease; Z79.4 - shelter (current) use of insulin; Z99.2 - Dependence on renal dialysis Plan to address problem: Blood sugar management by primary attending Subjective Date of service: 03/13/21 Principal diagnosis: Change mentation , ESRD,Hx of seizure Interval history: Pt awake, alert, in no acute distress, denies CP, SOB, palpitations, fever, chills, n/v/d Objective - Vital Signs Vital signs: Vital Signs - 12hr 03/13/21 03/13/21 03/13/21 08:00 08:27 11:03 Pulse Rate 117 H 114 H Blood Pressure 147/84 O2 Sat by Pulse 98 96 Oximetry - General Appearance General appearance: well-developed, well-nourished, appears stated age EENT: ATNC, PERRL, mucous membranes moist Neck: no JVD Respiratory: Present: Clear to Ascultation Cardiology: regular, S1S2 Gastrointestinal: normoactive bowel sounds Integumentary: no rash Neurologic: no focal deficit, alert and oriented x3, strength 5/5, CN 3-12 intact Psychiatric: mood/affect appropriate - Lab 03/11/21 03:25 03/11/21 03:25 Most recent lab results ABG pH 7.431 (7.320-7.450) 03/05/21 16:15 ABG O2 Saturation 94.6 (0-100) 03/05/21 16:15 Calcium 9.8 mg/dL (8.4-10.2) 03/11/21 03:25 Medications & Allergies - Medications Allergies/Adverse Reactions: Allergies ibuprofen Allergy (Verified 06/24/17 17:09) Rash Home Medications: Home Medications Medication Instructions Recorded Confirmed Last Taken Type Gabapentin 600 mg PO TID 08/27/15 10/31/18 08/09/17 History Ferric Citrate (Nf) [Auryxia] 210 mg PO TID 10/31/18 10/31/18 Unknown History Insulin Aspart (Nf) [NovoLOG 15 - 20 units SUB-Q DAILY@0900 10/31/18 10/31/18 Unknown History Flexpen] Insulin Aspart (Nf) [NovoLOG 15 - 20 units SUB-Q DAILY@1530 10/31/18 10/31/18 Unknown History Flexpen] Insulin Glargine,Hum.rec.anlog 15 - 20 units SUB-Q DAILY@2100 PRN 10/31/18 10/31/18 Unknown History [Lantus Solostar] AtorvaSTATin [Lipitor] 40 mg PO DAILY #30 tablet 11/02/18 Unknown Rx amLODIPine 10 mg PO DAILY #30 tablet 11/02/18 Unknown Rx cloNIDine [Catapres] 0.1 mg PO Q8HR #90 tablet 11/02/18 Unknown Rx levETIRAcetam [Keppra TAB] 750 mg PO BID #60 tablet 11/02/18 Unknown Rx oxyCODONE /ACETAMINOPHEN [Percocet 1 tab PO Q6H PRN #8 tablet 11/02/18 Unknown Rx 5/325 mg] Active Medications: Generic Name Dose Route Start Last Admin Trade Name Freq PRN Reason Stop Dose Admin Acetaminophen 650 mg 03/05/21 06:13 Acetaminophen 650 Mg Rect Supp NC Q6H PRN Pain MILD(1-3)/Fever >100.5/LEE Amlodipine Besylate 10 mg 03/11/21 10:00 03/13/21 11:03 Amlodipine 10 Mg Tab PO 10 mg DAILY LORENE Administration Lipase/Protease/Amylase 1 each 03/09/21 15:54 Lipase 10,500/Protease 25,000/Amylase 43,750 (Units) Dr Gongora FEEDTUBE PRN PRN For Clogged Feeding Tube Atorvastatin Calcium 40 mg 03/10/21 22:00 03/12/21 21:38 Atorvastatin 40 Mg Tab PO 40 mg QHS LORENE Administration Clonidine HCl 0.2 mg 03/09/21 11:00 03/11/21 00:00 Clonidine Tts 0.2 Mg/24 Hr Patch TD 0.2 mg Mo LORENE Administration Clopidogrel Bisulfate 75 mg 03/10/21 14:00 03/13/21 09:23 Clopidogrel 75 Mg Tab PO 75 mg QDAY LORENE Administration Dextrose 0 ml 03/08/21 12:30 Dextrose 50% In Water (25gm) 50 Ml Syringe IV ONCE PRN Hypoglycemia Heparin Sodium (Porcine) 5,000 unit 03/05/21 14:00 03/13/21 07:01 Heparin 5,000 Unit/1 Ml Vial SUB-Q 5,000 unit Q8HR LORENE Administration Hydralazine HCl 10 mg 03/05/21 06:43 03/11/21 00:40 Hydralazine 20 Mg/1 Ml Inj IV 10 mg Q4HR PRN Administration Blood Pressure Sodium Chloride 100 mls @ 999 mls/hr 03/09/21 10:02 Nacl 0.9% IV DESIREE PRN Hypotension Lacosamide 100 mg/ Sodium 110 mls @ 100 mls/hr 03/10/21 14:00 03/13/21 03:05 Chloride IV 100 mls/hr Q12H LORENE Administration Insulin Human Lispro 0 unit 03/10/21 12:00 03/13/21 07:06 Insulin Lispro 100 Unit/Ml SUB-Q Not Given Q6HR [facility] Protocol Lorazepam 2 mg 03/05/21 07:00 03/10/21 15:27 Lorazepam 2 Mg/Ml Vial IV 2 mg Q4H PRN Administration Seizures Magnesium Hydroxide 30 ml 03/05/21 06:13 Magnesium Hydroxide (Mom) Oral Liqd Udc PO Q4H PRN Constipation Morphine Sulfate 2 mg 03/05/21 06:13 Morphine 2 Mg/1 Ml Inj IV Q4H PRN Pain, Moderate (4-6) Morphine Sulfate 4 mg 03/05/21 06:13 03/11/21 01:06 Morphine 4 Mg/1 Ml Inj IV 4 mg Q4H PRN Administration Pain , Severe (7-10) Phenytoin 100 mg 03/13/21 22:00 Phenytoin 100 Mg/2 Ml Vial IV BID LORENE Simple Syrup 15 ml 03/10/21 11:44 Simple Syrup 15 Ml FEEDTUBE PRN PRN Hypoglycemia Simple Syrup 30 ml 03/10/21 11:44 Simple Syrup 15 Ml FEEDTUBE PRN PRN Hypoglycemia Sodium Bicarbonate 325 mg 03/10/21 11:44 Sodium Bicarbonate 325 Mg Tab FEEDTUBE PRN PRN For Clogged Feeding Tube Sodium Chloride 10 ml 03/05/21 10:00 03/13/21 09:29 Sodium Chloride 0.9% 10 Ml Flush Syringe IV 10 ml BID LORENE Administration Sodium Chloride 10 ml 03/05/21 06:13 Sodium Chloride 0.9% 10 Ml Flush Syringe IV PRN PRN LINE FLUSH
[2021-03-13] MEDS: PHENYTOIN 100 MG CAPSULE.ER PO SCH (21:36)
[2021-03-13] MEDS: LACOSAMIDE 100 MG TAB PO SCH (21:37)
[2021-03-13] MEDS ORDERED: PHENYTOIN 100 MG/2 ML VIAL IV SCH (22:00)
[2021-03-14] MEDS: INSULIN LISPRO 100 UNIT/ML SUB-Q SCH ×4 (01:38→16:36)
[2021-03-14] MEDS: HEPARIN 5,000 UNIT/1 ML VIAL SUB-Q SCH ×2 (06:42→14:16)
--- NOTE | 2021-03-14 08:22 | Progress Note ---
Assessment and Plan Assessment and plan: 50-year-old female with known history of end-stage renal disease on HD, seizure disorder, CVA with left side deficits, diabetes mellitus, and hypertension with acute encephalophy and electrolyte imbalance secondary to uremia. hospitalist course to date: 03/11/2021: mentation is improved. Pulls lines so continues to be in restraints. Awaiting repeat EEG by neurology and interpretation. Swallowing still remains problematic. Will continue to follow with speech recommendations. CM consulted for rehab placement. Does not need ICU level of care, Plan to transfer to medical floor. 03/12/2021: mentation is improved, able to answer yes/no questions. Neuro recs noted, EEG findings noted below. will continue antiepileptics. Patient appears to have pulled NG tube again voicing that she wants to eat. Will follow speech recommendations for dysphagia recovery progress prior to re-attempting NG tube placement.. May need PEG tube. 03/13/2021: Able to tolerate po. Mechanical soft diet and pills with apple sauce ordered. Seizure medication changed to po. unfortunately the patient tested positive for covid; this will make placement a challenge. Will coordinate with cm. Transfer orders placed to 3rd floor. 03/14/2021: Speech cleared for mechanical soft diet. Plan for DC on Tuesday. Awaiting final PT note for placement. Patient will go to [facility]. Assessment and Plan: #Acute metabolic encephalopathy 2/2 multifactorial siezure and uremia # Hx of CVA with Lt. deficits - 03/05 CT head and MRI w/o contrast showed no acute abnormalities --remote lacunar infarct BG and brain stem. - Cont. dilantin, Keppra 500 mg IV daily, Vimpat per Neuro - PRN ativan for seizure - Seizure precaution - Neuro on consult - EEG is remarkable for recurent triphasic/BIBLED R>L on 03/06 improved on 03/09 EEG to prn triphasic waves and diffuse slowing #End stage renal disease on dialysis- Pt. is anuric #Hyperkalemia-improving #Hyponatremia- resolved - Possible HD today - Continue hemodialysis Per Nephro - Follow up labs in the am #Cardio: elevated Troponin possibly Renal related; H/o HTN - Troponin:0.034, 0.032; 03/05 EKG noted - Hypertensive today, will restart home antihypertensive - Continue clonidine patch and PRN hydralazine for SBP>160 ID: COVID 19 positive - Patient remains afebrile, VSS, positive test found routine covid test for placement. - not hypoxic, no complaints of sob. #Endo: H/o T2DM (type 2 diabetes mellitus) - Cont Humalog sliding scale low-dose. #Advance Care Planning - Discharge planning ongoing - PT/OT eval and treat #DVT prophylaxis: SCDs, Heparin SubQ q8hrs History Interval history: Resting comfortably, no acute complaints. Hospitalist Physical - Physical exam Narrative exam: General appearance: well-developed, well-nourished, appears stated age EENT: ATNC, PERRL, mucous membranes moist Neck: no JVD, right IJ central line in place. Respiratory: Present: Clear to Ascultation Cardiology: regular, S1S2 Gastrointestinal: normoactive bowel sounds Integumentary: no rash Neurologic: no focal deficit, CN 3-12 intact - Constitutional Vitals: Temp Pulse Resp BP Pulse Ox 98.2 F 104 H 18 151/84 94 03/14/21 05:25 03/14/21 05:25 03/14/21 05:25 03/14/21 05:25 03/14/21 05:25 General appearance: Present: no acute distress, well-nourished HEART Score - HEART Score Troponin: Troponin T 0.032 ng/mL (0.00-0.029) H 03/05/21 15:46 Results - Labs CBC & Chem 7: 03/11/21 03:25 03/11/21 03:25 Labs: Laboratory Last Values WBC 14.4 K/mm3 (4.5-11.0) H 03/11/21 03:25 RBC 3.37 M/mm3 (3.65-5.03) L 03/11/21 03:25 Hgb 9.2 gm/dl (10.1-14.3) L 03/11/21 03:25 Hct 28.7 % (30.3-42.9) L 03/11/21 03:25 MCV 85 fl (79-97) 03/11/21 03:25 MCH 27 pg (28-32) L 03/11/21 03:25 MCHC 32 % (30-34) 03/11/21 03:25 RDW 17.1 % (13.2-15.2) H 03/11/21 03:25 Plt Count 181 K/mm3 (140-440) 03/11/21 03:25 Lymph % (Auto) 6.3 % (13.4-35.0) L 03/06/21 05:07 [place] % (Auto) 6.0 % (0.0-7.3) 03/06/21 05:07 Eos % (Auto) 0.2 % (0.0-4.3) 03/06/21 05:07 Baso % (Auto) 0.3 % (0.0-1.8) 03/06/21 05:07 Lymph # (Auto) 0.9 K/mm3 (1.2-5.4) L 03/06/21 05:07 [place] # (Auto) 0.9 K/mm3 (0.0-0.8) H 03/06/21 05:07 Eos # (Auto) 0.0 K/mm3 (0.0-0.4) 03/06/21 05:07 Baso # (Auto) 0.1 K/mm3 (0.0-0.1) 03/06/21 05:07 Seg Neutrophils % 87.2 % (40.0-70.0) H 03/06/21 05:07 Seg Neutrophils # 12.9 K/mm3 (1.8-7.7) H 03/06/21 05:07 ESR 78 mm/Hr (0-20) 03/06/21 15:29 PT 14.5 Sec. (12.2-14.9) 03/06/21 05:07 INR 1.08 (0.87-1.13) 03/06/21 05:07 ABG pH 7.431 (7.320-7.450) 03/05/21 16:15 POC ABG pCO2 37.1 mmHg (32.0-48.0) 03/05/21 16:15 POC ABG pO2 80.0 mmHg (83-108) L 03/05/21 16:15 POC ABG HCO3 24.1 03/05/21 16:15 ABG O2 Saturation 94.6 (0-100) 03/05/21 16:15 POC ABG Base Excess 0 03/05/21 16:15 ABG Hemoglobin 11.0 (12.0-17.5) L 03/05/21 16:15 ABG Oxyhemoglobin 93.3 (94-98) L 03/05/21 16:15 ABG Methemoglobin 0.3 (0.0-1.5) 03/05/21 16:15 ABG Sodium 131.5 mmol/L (136.0-145.0) L 03/05/21 16:15 ABG Potassium 5.1 mmol/L (3.40-4.50) H 03/05/21 16:15 ABG Chloride 95.0 mmol/L (98-107) L 03/05/21 16:15 ABG Glucose 302 mg/dL (65-95) H 03/05/21 16:15 Carboxyhemoglobin 1.1 (0.5-1.5) 03/05/21 16:15 FiO2 % 21.0 03/05/21 16:15 Sodium 136 mmol/L (137-145) L 03/11/21 03:25 Potassium 4.4 mmol/L (3.6-5.0) 03/11/21 03:25 Chloride 92.3 mmol/L (98-107) L 03/11/21 03:25 Carbon Dioxide 24 mmol/L (22-30) 03/11/21 03:25 Anion Gap 24 mmol/L 03/11/21 03:25 BUN 45 mg/dL (7-17) H 03/11/21 03:25 Creatinine 5.6 mg/dL (0.6-1.2) H 03/11/21 03:25 Estimated GFR 10 ml/min 03/11/21 03:25 BUN/Creatinine Ratio 8 % 03/11/21 03:25 Glucose 201 mg/dL (65-100) H 03/11/21 03:25 POC Glucose 230 mg/dL (70-105) H 03/14/21 07:44 Calcium 9.8 mg/dL (8.4-10.2) 03/11/21 03:25 Total Bilirubin 0.30 mg/dL (0.1-1.2) 03/11/21 03:25 AST 25 units/L (5-40) 03/11/21 03:25 ALT 13 units/L (7-56) 03/11/21 03:25 Alkaline Phosphatase 195 units/L (35-129) H 03/11/21 03:25 Ammonia 46.0 umol/L (25-60) 03/06/21 14:09 Troponin T 0.032 ng/mL (0.00-0.029) H 03/05/21 15:46 C-Reactive Protein 7.70 mg/dL (0.00-1.30) H 03/06/21 14:09 Total Protein 7.8 g/dL (6.3-8.2) 03/11/21 03:25 Albumin 3.8 g/dL (3.9-5) L 03/11/21 03:25 Albumin/Globulin Ratio 1.0 % 03/11/21 03:25 Triglycerides 363 mg/dL (2-149) H 03/05/21 04:39 Cholesterol 154 mg/dL (50-199) 03/05/21 04:39 LDL Cholesterol Direct 73 mg/dL (50-130) 03/05/21 04:39 HDL Cholesterol 34 mg/dL (40-59) L 03/05/21 04:39 Cholesterol/HDL Ratio 4.52 % 03/05/21 04:39 Vitamin B12 846.0 pg/mL (211-911) 03/06/21 14:09 TSH 2.530 mlU/mL (0.270-4.200) 03/06/21 14:09 Arterial Blood Glucose 302 mg/dL (65-95) H 03/05/21 16:15 Arterial Blood Ionized Calcium 4.1 mg/dL (4.6-5.3) L 03/05/21 16:15 Phenytoin 13.8 ug/mL (10.0-20.0) 03/10/21 15:55 Free Phenytoin 2.5 mg/L (1.0-2.0) H 03/09/21 03:40 Levetiracetam 32.3 mcg/mL (12.0-46.0) 03/05/21 15:46 Coronavirus (PCR) Positive (Negative) A 03/13/21 08:24 Hepatitis A IgM Ab Non-reactive (NonReactive) 03/06/21 08:37 Hep Bs Antigen Nonreactive (Negative) 03/06/21 08:37 Hep B Core IgM Ab Non-reactive (NonReactive) 03/06/21 08:37 Hepatitis C Antibody Non-reactive (NonReactive) 03/06/21 08:37 [place]/IV: Voiding Method External Female Catheter Active Medications - Current Medications Current Medications: Generic Name Dose Route Start Last Admin Trade Name Freq PRN Reason Stop Dose Admin Acetaminophen 650 mg 03/05/21 06:13 Acetaminophen 650 Mg Rect Supp [place] Q6H PRN Pain MILD(1-3)/Fever >100.5/LEE Amlodipine Besylate 10 mg 03/11/21 10:00 03/13/21 11:03 Amlodipine 10 Mg Tab PO 10 mg DAILY LORENE Administration Lipase/Protease/Amylase 1 each 03/09/21 15:54 Lipase 10,500/Protease 25,000/Amylase 43,750 (Units) Dr Gongora FEEDTUBE PRN PRN For Clogged Feeding Tube Atorvastatin Calcium 40 mg 03/10/21 22:00 03/13/21 21:36 Atorvastatin 40 Mg Tab PO 40 mg QHS LORENE Administration Clonidine HCl 0.2 mg 03/09/21 11:00 03/11/21 00:00 Clonidine Tts 0.2 Mg/24 Hr Patch TD 0.2 mg Mo LORENE Administration Clopidogrel Bisulfate 75 mg 03/10/21 14:00 03/13/21 09:23 Clopidogrel 75 Mg Tab PO 75 mg QDAY LORENE Administration Dextrose 0 ml 03/08/21 12:30 Dextrose 50% In Water (25gm) 50 Ml Syringe IV ONCE PRN Hypoglycemia Heparin Sodium (Porcine) 5,000 unit 03/05/21 14:00 03/14/21 06:42 Heparin 5,000 Unit/1 Ml Vial SUB-Q 5,000 unit Q8HR LORENE Administration Hydralazine HCl 10 mg 03/05/21 06:43 03/11/21 00:40 Hydralazine 20 Mg/1 Ml Inj IV 10 mg Q4HR PRN Administration Blood Pressure Sodium Chloride 100 mls @ 999 mls/hr 03/09/21 10:02 Nacl 0.9% IV DESIREE PRN Hypotension Insulin Human Lispro 0 unit 03/10/21 12:00 03/14/21 06:42 Insulin Lispro 100 Unit/Ml SUB-Q 3 unit Q6HR LORENE Administration Protocol Lacosamide 100 mg 03/13/21 22:00 03/13/21 21:37 Lacosamide 100 Mg Tab PO 100 mg Q12HR LORENE Administration Lorazepam 2 mg 03/05/21 07:00 03/10/21 15:27 Lorazepam 2 Mg/Ml Vial IV 2 mg Q4H PRN Administration Seizures Magnesium Hydroxide 30 ml 03/05/21 06:13 Magnesium Hydroxide (Mom) Oral Liqd Udc PO Q4H PRN Constipation Morphine Sulfate 2 mg 03/05/21 06:13 Morphine 2 Mg/1 Ml Inj IV Q4H PRN Pain, Moderate (4-6) Morphine Sulfate 4 mg 03/05/21 06:13 03/11/21 01:06 Morphine 4 Mg/1 Ml Inj IV 4 mg Q4H PRN Administration Pain , Severe (7-10) Phenytoin 100 mg 03/13/21 22:00 03/13/21 21:36 Phenytoin 100 Mg Capsule.Er PO 100 mg Q12HR LORENE Administration Simple Syrup 15 ml 03/10/21 11:44 Simple Syrup 15 Ml FEEDTUBE PRN PRN Hypoglycemia Simple Syrup 30 ml 03/10/21 11:44 Simple Syrup 15 Ml FEEDTUBE PRN PRN Hypoglycemia Sodium Bicarbonate 325 mg 03/10/21 11:44 Sodium Bicarbonate 325 Mg Tab FEEDTUBE PRN PRN For Clogged Feeding Tube Sodium Chloride 10 ml 03/05/21 10:00 03/13/21 21:38 Sodium Chloride 0.9% 10 Ml Flush Syringe IV 10 ml BID LORENE Administration Sodium Chloride 10 ml 03/05/21 06:13 Sodium Chloride 0.9% 10 Ml Flush Syringe IV PRN PRN LINE FLUSH Nutrition/Malnutrition Assess - Dietary Evaluation Nutrition/Malnutrition Findings: Nutrition Notes Start: 03/05/21 06:45 Freq: Status: Active Protocol: Document 03/13/21 09:34 LAVELLE (Rec: 03/13/21 09:38 LAVAHE [email or web address]) Nutrition Notes Initial or Follow up Brief Note Current Diet TF - Nepro at 45ml/hr Subjective/Other Information Per RN note, pt passed bedside swallow eval on 03/11 and tolerated ice chips, apple sauce and Prateek crackers. She pulled out NGT yesterday; says she wants to eat. RESIDENTIAL SPECIALIST to work with pt for dysphagia recovery progress before attempting to replace NGT; she may need a PEG tube. Nutrition Intervention Follow-Up By: 03/16/21 Additional Comments F/U: RESIDENTIAL SPECIALIST eval, diet advancement vs need for continued TF
[2021-03-14] MEDS: PHENYTOIN 100 MG CAPSULE.ER PO SCH (10:06)
[2021-03-14] MEDS: CLOPIDOGREL 75 MG TAB PO SCH (10:06)
[2021-03-14] MEDS: LACOSAMIDE 100 MG TAB PO SCH (10:06)
[2021-03-14] MEDS: amLODIPine 10 MG TAB PO SCH (10:06)
--- NOTE | 2021-03-14 10:49 | Progress Note ---
Assessment and Plan - Patient Problems (1) Seizure disorder Current Visit: No Status: Acute Plan to address problem: status epilepticus resolved.. Plan is to wean off Dilantin in 4 weeks per Neurologist. Continue management by neurologist. Discharge planning by primary attending (2) Hyponatremia Current Visit: Yes Status: Acute Plan to address problem: Probably volume related. Resolved with fluid removal on dialysis (3) Metabolic acidosis Current Visit: Yes Status: Acute Plan to address problem: Uremic acidosis. Resolved with dialysis. (4) ESRD (end stage renal disease) on dialysis Current Visit: Yes Status: Chronic Plan to address problem: Hemodialysis on a Tuesday, and Tuesday (5) Accelerated hypertension Current Visit: No Status: Acute Plan to address problem: Blood pressure elevated on presentation now improved. Follow blood pressure on current medications (6) Hyperkalemia Current Visit: No Status: Acute Plan to address problem: Resolved with Hemodialysis. Follow-up potassium periodically (7) Type 2 diabetes mellitus with diabetic chronic kidney disease Current Visit: No Status: Chronic Qualifiers: Diabetes mellitus salvage determiner insulin use: with assisted use Chronic kidney disease stage: on chronic dialysis Qualified Code(s): E11.22 - Type 2 diabetes mellitus with diabetic chronic kidney disease; N18.6 - End stage renal disease; Z79.4 - halfway (current) use of insulin; Z99.2 - Dependence on renal dialysis Plan to address problem: Blood sugar management by primary attending Subjective Date of service: 03/14/21 Principal diagnosis: Change mentation , ESRD,Hx of seizure Interval history: Patient seen lying in bed. She has no complaints today except for pain in her bottom. No chest pain, shortness of breath, nausea or vomiting. Objective - Exam Narrative Exam: Middle-aged Afro-[place] female lying in bed in no acute distress HEENT: Normocephalic atraumatic, pupils equal round reactive to light Normal oropharynx, Neck: Supple, no venous distention, no goiter CVS: S1S2 RRR No murmur, No rub or gallop Lungs: Clear to auscultation, no use of accessory muscles of respiration Abdomen: Full, soft, nontender, no organomegaly no bruit, bowel sounds are present Extremities: No edema, no cyanosis or clubbing Urinary: Deferred Musculo-skeletal: No joint deformities or swelling Neuro: Awake, alert - Vital Signs Vital signs: Vital Signs - 12hr 03/13/21 03/14/21 03/14/21 23:40 01:14 01:15 Temperature 98.3 F 98.2 F Pulse Rate 113 H 110 H Respiratory 18 18 Rate Blood Pressure 183/88 133/72 O2 Sat by Pulse 97 95 95 Oximetry 03/14/21 03/14/21 04:50 05:25 Temperature 98.1 F 98.2 F Pulse Rate 63 104 H Respiratory 18 18 Rate Blood Pressure 140/84 151/84 O2 Sat by Pulse 97 94 Oximetry - Lab 03/11/21 03:25 03/11/21 03:25 Most recent lab results ABG pH 7.431 (7.320-7.450) 03/05/21 16:15 ABG O2 Saturation 94.6 (0-100) 03/05/21 16:15 Calcium 9.8 mg/dL (8.4-10.2) 03/11/21 03:25 Medications & Allergies - Medications Allergies/Adverse Reactions: Allergies ibuprofen Allergy (Verified 06/24/17 17:09) Rash Home Medications: Home Medications Medication Instructions Recorded Confirmed Last Taken Type Gabapentin 600 mg PO TID 08/27/15 10/31/18 08/09/17 History Ferric Citrate (Nf) [Auryxia] 210 mg PO TID 10/31/18 10/31/18 Unknown History Insulin Aspart (Nf) [NovoLOG 15 - 20 units SUB-Q DAILY@0900 10/31/18 10/31/18 Unknown History Flexpen] Insulin Aspart (Nf) [NovoLOG 15 - 20 units SUB-Q DAILY@1530 10/31/18 10/31/18 Unknown History Flexpen] Insulin Glargine,Hum.rec.anlog 15 - 20 units SUB-Q DAILY@2100 PRN 10/31/18 10/31/18 Unknown History [Lantus Solostar] AtorvaSTATin [Lipitor] 40 mg PO DAILY #30 tablet 11/02/18 Unknown Rx amLODIPine 10 mg PO DAILY #30 tablet 11/02/18 Unknown Rx cloNIDine [Catapres] 0.1 mg PO Q8HR #90 tablet 11/02/18 Unknown Rx levETIRAcetam [Keppra TAB] 750 mg PO BID #60 tablet 11/02/18 Unknown Rx oxyCODONE /ACETAMINOPHEN [Percocet 1 tab PO Q6H PRN #8 tablet 11/02/18 Unknown Rx 5/325 mg] Active Medications: Generic Name Dose Route Start Last Admin Trade Name Freq PRN Reason Stop Dose Admin Acetaminophen 650 mg 03/05/21 06:13 Acetaminophen 650 Mg Rect Supp [place] Q6H PRN Pain MILD(1-3)/Fever >100.5/LEE Amlodipine Besylate 10 mg 03/11/21 10:00 03/14/21 10:06 Amlodipine 10 Mg Tab PO 10 mg DAILY LORENE Administration Lipase/Protease/Amylase 1 each 03/09/21 15:54 Lipase 10,500/Protease 25,000/Amylase 43,750 (Units) Dr Gongora FEEDTUBE PRN PRN For Clogged Feeding Tube Atorvastatin Calcium 40 mg 03/10/21 22:00 03/13/21 21:36 Atorvastatin 40 Mg Tab PO 40 mg QHS LORENE Administration Clonidine HCl 0.2 mg 03/09/21 11:00 03/11/21 00:00 Clonidine Tts 0.2 Mg/24 Hr Patch TD 0.2 mg Mo LORENE Administration Clopidogrel Bisulfate 75 mg 03/10/21 14:00 03/14/21 10:06 Clopidogrel 75 Mg Tab PO 75 mg QDAY LORENE Administration Dextrose 0 ml 03/08/21 12:30 Dextrose 50% In Water (25gm) 50 Ml Syringe IV ONCE PRN Hypoglycemia Heparin Sodium (Porcine) 5,000 unit 03/05/21 14:00 03/14/21 06:42 Heparin 5,000 Unit/1 Ml Vial SUB-Q 5,000 unit Q8HR LORENE Administration Hydralazine HCl 10 mg 03/05/21 06:43 03/11/21 00:40 Hydralazine 20 Mg/1 Ml Inj IV 10 mg Q4HR PRN Administration Blood Pressure Sodium Chloride 100 mls @ 999 mls/hr 03/09/21 10:02 Nacl 0.9% IV DESIREE PRN Hypotension Insulin Human Lispro 0 unit 03/10/21 12:00 03/14/21 06:42 Insulin Lispro 100 Unit/Ml SUB-Q 3 unit Q6HR LORENE Administration Protocol Lacosamide 100 mg 03/13/21 22:00 03/14/21 10:06 Lacosamide 100 Mg Tab PO 100 mg Q12HR LORENE Administration Lorazepam 2 mg 03/05/21 07:00 03/10/21 15:27 Lorazepam 2 Mg/Ml Vial IV 2 mg Q4H PRN Administration Seizures Magnesium Hydroxide 30 ml 03/05/21 06:13 Magnesium Hydroxide (Mom) Oral Liqd Udc PO Q4H PRN Constipation Morphine Sulfate 2 mg 03/05/21 06:13 Morphine 2 Mg/1 Ml Inj IV Q4H PRN Pain, Moderate (4-6) Morphine Sulfate 4 mg 03/05/21 06:13 03/11/21 01:06 Morphine 4 Mg/1 Ml Inj IV 4 mg Q4H PRN Administration Pain , Severe (7-10) Phenytoin 100 mg 03/13/21 22:00 03/14/21 10:06 Phenytoin 100 Mg Capsule.Er PO 100 mg Q12HR LORENE Administration Simple Syrup 15 ml 03/10/21 11:44 Simple Syrup 15 Ml FEEDTUBE PRN PRN Hypoglycemia Simple Syrup 30 ml 03/10/21 11:44 Simple Syrup 15 Ml FEEDTUBE PRN PRN Hypoglycemia Sodium Bicarbonate 325 mg 03/10/21 11:44 Sodium Bicarbonate 325 Mg Tab FEEDTUBE PRN PRN For Clogged Feeding Tube Sodium Chloride 10 ml 03/05/21 10:00 03/14/21 10:07 Sodium Chloride 0.9% 10 Ml Flush Syringe IV 10 ml BID LORENE Administration Sodium Chloride 10 ml 03/05/21 06:13 Sodium Chloride 0.9% 10 Ml Flush Syringe IV PRN PRN LINE FLUSH
[2021-03-14] MEDS: LACOSAMIDE 100 MG in SODIUM CHLORIDE 0.9% 100 ML IV SCH (12:04)
[2021-03-14] MEDS: INSULIN GLARGINE 100 UNITS/ML SUB-Q SCH (17:55)
[2021-03-14] MEDS: INSULIN REGULAR, HUMAN 100 UNITS/1 ML SUB-Q SCH (17:56)
[2021-03-15] MEDS: INSULIN LISPRO 100 UNIT/ML SUB-Q SCH ×5 (00:35→22:49)
[2021-03-15] MEDS: INSULIN REGULAR, HUMAN 100 UNITS/1 ML SUB-Q SCH ×5 (00:35→22:49)
[2021-03-15] MEDS: INSULIN GLARGINE 100 UNITS/ML SUB-Q SCH ×3 (00:35→22:50)
[2021-03-15] MEDS: HEPARIN 5,000 UNIT/1 ML VIAL SUB-Q SCH ×4 (00:45→22:38)
[2021-03-15] MEDS: PHENYTOIN 100 MG CAPSULE.ER PO SCH ×3 (00:45→22:39)
[2021-03-15] MEDS: LACOSAMIDE 100 MG TAB PO SCH ×3 (00:46→22:38)
[2021-03-15] MEDS ORDERED: hydrALAZINE 25 MG TAB PO ONE (06:00)
--- NOTE | 2021-03-15 07:34 | Progress Note ---
Assessment and Plan Assessment and plan: 50-year-old female with known history of end-stage renal disease on HD, seizure disorder, CVA with left side deficits, diabetes mellitus, and hypertension with acute encephalophy and electrolyte imbalance secondary to uremia. hospitalist course to date: 03/11/2021: mentation is improved. Pulls lines so continues to be in restraints. Awaiting repeat EEG by neurology and interpretation. Swallowing still remains problematic. Will continue to follow with speech recommendations. CM consulted for rehab placement. Does not need ICU level of care, Plan to transfer to medical floor. 03/12/2021: mentation is improved, able to answer yes/no questions. Neuro recs noted, EEG findings noted below. will continue antiepileptics. Patient appears to have pulled NG tube again voicing that she wants to eat. Will follow speech recommendations for dysphagia recovery progress prior to re-attempting NG tube placement.. May need PEG tube. 03/13/2021: Able to tolerate po. Mechanical soft diet and pills with apple sauce ordered. Seizure medication changed to po. unfortunately the patient tested positive for covid; this will make placement a challenge. Will coordinate with cm. Transfer orders placed to 3rd floor. 03/14/2021: Speech cleared for mechanical soft diet. Plan for DC on Tuesday. Awaiting final PT note for placement. Patient will go to [facility]. 03/15/2021: Speech cleared for mechanical soft diet. Plan for DC on Tuesday. Awaiting final PT note for placement. Patient will go to [facility]. Assessment and Plan: #Acute metabolic encephalopathy 2/2 multifactorial siezure and uremia # Hx of CVA with Lt. deficits - 03/05 CT head and MRI w/o contrast showed no acute abnormalities --remote lacunar infarct BG and brain stem. - Cont. dilantin, Keppra 500 mg IV daily, Vimpat per Neuro - PRN ativan for seizure - Seizure precaution - Neuro on consult - EEG is remarkable for recurent triphasic/BIBLED R>L on 03/06 improved on 03/09 EEG to prn triphasic waves and diffuse slowing #End stage renal disease on dialysis- Pt. is anuric #Hyperkalemia-improving #Hyponatremia- resolved - Possible HD today - Continue hemodialysis Per Nephro - Follow up labs in the am #Cardio: elevated Troponin possibly Renal related; H/o HTN - Troponin:0.034, 0.032; 03/05 EKG noted - Hypertensive today, will restart home antihypertensive - Continue clonidine patch and PRN hydralazine for SBP>160 ID: COVID 19 positive - Patient remains afebrile, VSS, positive test found routine covid test for placement. - not hypoxic, no complaints of sob. #Endo: H/o T2DM (type 2 diabetes mellitus) - Cont Humalog sliding scale low-dose. #Advance Care Planning - Discharge planning ongoing - PT/OT eval and treat #DVT prophylaxis: SCDs, Heparin SubQ q8hrs History Interval history: Resting comfortably, no acute complaints. Hospitalist Physical - Physical exam Narrative exam: General appearance: well-developed, well-nourished, appears stated age EENT: ATNC, PERRL, mucous membranes moist Neck: no JVD, right IJ central line in place. Respiratory: Present: Clear to Ascultation Cardiology: regular, S1S2 Gastrointestinal: normoactive bowel sounds Integumentary: no rash Neurologic: no focal deficit, CN 3-12 intact - Constitutional Vitals: Temp Pulse Resp BP Pulse Ox 98.7 F 98 H 16 172/85 97 03/15/21 04:44 03/15/21 00:41 03/15/21 04:44 03/15/21 04:44 03/15/21 02:00 General appearance: Present: no acute distress, well-nourished HEART Score - HEART Score Troponin: Troponin T 0.032 ng/mL (0.00-0.029) H 03/05/21 15:46 Results - Labs CBC & Chem 7: 03/11/21 03:25 03/15/21 08:44 Labs: Laboratory Last Values WBC 14.4 K/mm3 (4.5-11.0) H 03/11/21 03:25 RBC 3.37 M/mm3 (3.65-5.03) L 03/11/21 03:25 Hgb 9.2 gm/dl (10.1-14.3) L 03/11/21 03:25 Hct 28.7 % (30.3-42.9) L 03/11/21 03:25 MCV 85 fl (79-97) 03/11/21 03:25 MCH 27 pg (28-32) L 03/11/21 03:25 MCHC 32 % (30-34) 03/11/21 03:25 RDW 17.1 % (13.2-15.2) H 03/11/21 03:25 Plt Count 181 K/mm3 (140-440) 03/11/21 03:25 Lymph % (Auto) 6.3 % (13.4-35.0) L 03/06/21 05:07 Kleberg % (Auto) 6.0 % (0.0-7.3) 03/06/21 05:07 Eos % (Auto) 0.2 % (0.0-4.3) 03/06/21 05:07 Baso % (Auto) 0.3 % (0.0-1.8) 03/06/21 05:07 Lymph # (Auto) 0.9 K/mm3 (1.2-5.4) L 03/06/21 05:07 Kleberg # (Auto) 0.9 K/mm3 (0.0-0.8) H 03/06/21 05:07 Eos # (Auto) 0.0 K/mm3 (0.0-0.4) 03/06/21 05:07 Baso # (Auto) 0.1 K/mm3 (0.0-0.1) 03/06/21 05:07 Seg Neutrophils % 87.2 % (40.0-70.0) H 03/06/21 05:07 Seg Neutrophils # 12.9 K/mm3 (1.8-7.7) H 03/06/21 05:07 ESR 78 mm/Hr (0-20) 03/06/21 15:29 PT 14.5 Sec. (12.2-14.9) 03/06/21 05:07 INR 1.08 (0.87-1.13) 03/06/21 05:07 ABG pH 7.431 (7.320-7.450) 03/05/21 16:15 POC ABG pCO2 37.1 mmHg (32.0-48.0) 03/05/21 16:15 POC ABG pO2 80.0 mmHg (83-108) L 03/05/21 16:15 POC ABG HCO3 24.1 03/05/21 16:15 ABG O2 Saturation 94.6 (0-100) 03/05/21 16:15 POC ABG Base Excess 0 03/05/21 16:15 ABG Hemoglobin 11.0 (12.0-17.5) L 03/05/21 16:15 ABG Oxyhemoglobin 93.3 (94-98) L 03/05/21 16:15 ABG Methemoglobin 0.3 (0.0-1.5) 03/05/21 16:15 ABG Sodium 131.5 mmol/L (136.0-145.0) L 03/05/21 16:15 ABG Potassium 5.1 mmol/L (3.40-4.50) H 03/05/21 16:15 ABG Chloride 95.0 mmol/L (98-107) L 03/05/21 16:15 ABG Glucose 302 mg/dL (65-95) H 03/05/21 16:15 Carboxyhemoglobin 1.1 (0.5-1.5) 03/05/21 16:15 FiO2 % 21.0 03/05/21 16:15 Sodium 136 mmol/L (137-145) L 03/11/21 03:25 Potassium 4.4 mmol/L (3.6-5.0) 03/11/21 03:25 Chloride 92.3 mmol/L (98-107) L 03/11/21 03:25 Carbon Dioxide 24 mmol/L (22-30) 03/11/21 03:25 Anion Gap 24 mmol/L 03/11/21 03:25 BUN 45 mg/dL (7-17) H 03/11/21 03:25 Creatinine 5.6 mg/dL (0.6-1.2) H 03/11/21 03:25 Estimated GFR 10 ml/min 03/11/21 03:25 BUN/Creatinine Ratio 8 % 03/11/21 03:25 Glucose 201 mg/dL (65-100) H 03/11/21 03:25 POC Glucose 97 mg/dL (70-105) 03/14/21 21:14 Calcium 9.8 mg/dL (8.4-10.2) 03/11/21 03:25 Total Bilirubin 0.30 mg/dL (0.1-1.2) 03/11/21 03:25 AST 25 units/L (5-40) 03/11/21 03:25 ALT 13 units/L (7-56) 03/11/21 03:25 Alkaline Phosphatase 195 units/L (35-129) H 03/11/21 03:25 Ammonia 46.0 umol/L (25-60) 03/06/21 14:09 Troponin T 0.032 ng/mL (0.00-0.029) H 03/05/21 15:46 C-Reactive Protein 7.70 mg/dL (0.00-1.30) H 03/06/21 14:09 Total Protein 7.8 g/dL (6.3-8.2) 03/11/21 03:25 Albumin 3.8 g/dL (3.9-5) L 03/11/21 03:25 Albumin/Globulin Ratio 1.0 % 03/11/21 03:25 Triglycerides 363 mg/dL (2-149) H 03/05/21 04:39 Cholesterol 154 mg/dL (50-199) 03/05/21 04:39 LDL Cholesterol Direct 73 mg/dL (50-130) 03/05/21 04:39 HDL Cholesterol 34 mg/dL (40-59) L 03/05/21 04:39 Cholesterol/HDL Ratio 4.52 % 03/05/21 04:39 Vitamin B12 846.0 pg/mL (211-911) 03/06/21 14:09 TSH 2.530 mlU/mL (0.270-4.200) 03/06/21 14:09 Arterial Blood Glucose 302 mg/dL (65-95) H 03/05/21 16:15 Arterial Blood Ionized Calcium 4.1 mg/dL (4.6-5.3) L 03/05/21 16:15 Phenytoin 13.8 ug/mL (10.0-20.0) 03/10/21 15:55 Free Phenytoin 2.5 mg/L (1.0-2.0) H 03/09/21 03:40 Levetiracetam 32.3 mcg/mL (12.0-46.0) 03/05/21 15:46 Coronavirus (PCR) Positive (Negative) A 03/13/21 08:24 Hepatitis A IgM Ab Non-reactive (NonReactive) 03/06/21 08:37 Hep Bs Antigen Nonreactive (Negative) 03/06/21 08:37 Hep B Core IgM Ab Non-reactive (NonReactive) 03/06/21 08:37 Hepatitis C Antibody Non-reactive (NonReactive) 03/06/21 08:37 Blair/IV: Voiding Method Incontinent Active Medications - Current Medications Current Medications: Generic Name Dose Route Start Last Admin Trade Name Freq PRN Reason Stop Dose Admin Acetaminophen 650 mg 03/05/21 06:13 Acetaminophen 650 Mg Rect Supp [place] Q6H PRN Pain MILD(1-3)/Fever >100.5/LEE Amlodipine Besylate 10 mg 03/11/21 10:00 03/14/21 10:06 Amlodipine 10 Mg Tab PO 10 mg DAILY LORENE Administration Lipase/Protease/Amylase 1 each 03/09/21 15:54 Lipase 10,500/Protease 25,000/Amylase 43,750 (Units) Dr Gongora FEEDTUBE PRN PRN For Clogged Feeding Tube Atorvastatin Calcium 40 mg 03/10/21 22:00 03/15/21 00:45 Atorvastatin 40 Mg Tab PO 40 mg QHS LORENE Administration Clonidine HCl 0.2 mg 03/09/21 11:00 03/11/21 00:00 Clonidine Tts 0.2 Mg/24 Hr Patch TD 0.2 mg Mo LORENE Administration Clopidogrel Bisulfate 75 mg 03/10/21 14:00 03/14/21 10:06 Clopidogrel 75 Mg Tab PO 75 mg QDAY LORENE Administration Dextrose 0 ml 03/08/21 12:30 Dextrose 50% In Water (25gm) 50 Ml Syringe IV ONCE PRN Hypoglycemia Heparin Sodium (Porcine) 5,000 unit 03/05/21 14:00 03/15/21 06:31 Heparin 5,000 Unit/1 Ml Vial SUB-Q 5,000 unit Q8HR LORENE Administration Hydralazine HCl 10 mg 03/05/21 06:43 03/11/21 00:40 Hydralazine 20 Mg/1 Ml Inj IV 10 mg Q4HR PRN Administration Blood Pressure Sodium Chloride 100 mls @ 999 mls/hr 03/09/21 10:02 Nacl 0.9% IV DESIREE PRN Hypotension Insulin Glargine 20 units 03/14/21 16:36 03/15/21 00:35 Insulin Glargine 100 Units/Ml SUB-Q Not Given BID [facility] Insulin Human Lispro 0 unit 03/14/21 16:30 03/15/21 00:35 Insulin Lispro 100 Unit/Ml SUB-Q Not Given ACHS [facility] Protocol Insulin Human Regular 5 units 03/14/21 16:37 03/15/21 00:35 Insulin Regular, Human 100 Units/1 Ml SUB-Q Not Given ACHS LORENE Lacosamide 100 mg 03/13/21 22:00 03/15/21 00:46 Lacosamide 100 Mg Tab PO 100 mg Q12HR LORENE Administration Lorazepam 2 mg 03/05/21 07:00 03/10/21 15:27 Lorazepam 2 Mg/Ml Vial IV 2 mg Q4H PRN Administration Seizures Magnesium Hydroxide 30 ml 03/05/21 06:13 Magnesium Hydroxide (Mom) Oral Liqd Udc PO Q4H PRN Constipation Morphine Sulfate 2 mg 03/05/21 06:13 Morphine 2 Mg/1 Ml Inj IV Q4H PRN Pain, Moderate (4-6) Morphine Sulfate 4 mg 03/05/21 06:13 03/11/21 01:06 Morphine 4 Mg/1 Ml Inj IV 4 mg Q4H PRN Administration Pain , Severe (7-10) Phenytoin 100 mg 03/13/21 22:00 03/15/21 00:45 Phenytoin 100 Mg Capsule.Er PO 100 mg Q12HR LORENE Administration Simple Syrup 15 ml 03/10/21 11:44 Simple Syrup 15 Ml FEEDTUBE PRN PRN Hypoglycemia Simple Syrup 30 ml 03/10/21 11:44 Simple Syrup 15 Ml FEEDTUBE PRN PRN Hypoglycemia Sodium Bicarbonate 325 mg 03/10/21 11:44 Sodium Bicarbonate 325 Mg Tab FEEDTUBE PRN PRN For Clogged Feeding Tube Sodium Chloride 10 ml 03/05/21 10:00 03/15/21 00:46 Sodium Chloride 0.9% 10 Ml Flush Syringe IV 10 ml BID LORENE Administration Sodium Chloride 10 ml 03/05/21 06:13 Sodium Chloride 0.9% 10 Ml Flush Syringe IV PRN PRN LINE FLUSH Nutrition/Malnutrition Assess - Dietary Evaluation Nutrition/Malnutrition Findings: Nutrition Notes Start: 03/05/21 06:45 Freq: Status: Active Protocol: Document 03/13/21 09:34 LAVELLE (Rec: 03/13/21 09:38 LAVELLE [id number]) Nutrition Notes Initial or Follow up Brief Note Current Diet TF - Nepro at 45ml/hr Subjective/Other Information Per RN note, pt passed bedside swallow eval on 03/11 and tolerated ice chips, apple sauce and Prateek crackers. She pulled out NGT yesterday; says she wants to eat. 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 Nutrition Intervention Follow-Up By: 03/16/21 Additional Comments F/U: PRINTING AND STAMPING SUPERVISOR eval, diet advancement vs need for continued TF
[2021-03-15 09:13] LABS: Calcium 10.3 mg/dL (8.4-10.2)
[2021-03-15] MEDS: CLOPIDOGREL 75 MG TAB PO SCH (10:21)
[2021-03-15] MEDS: amLODIPine 10 MG TAB PO SCH (10:21)
--- NOTE | 2021-03-15 16:27 | Progress Note ---
Assessment and Plan - Patient Problems (1) Seizure disorder Current Visit: No Status: Acute Plan to address problem: status epilepticus resolved.. Plan is to wean off Dilantin in 4 weeks per Neurologist. Continue management by neurologist. Discharge planning by primary attending (2) Hyponatremia Current Visit: Yes Status: Acute Plan to address problem: Probably volume related. Resolved with fluid removal on dialysis (3) Metabolic acidosis Current Visit: Yes Status: Acute Plan to address problem: Uremic acidosis. Resolved with dialysis. (4) ESRD (end stage renal disease) on dialysis Current Visit: Yes Status: Chronic Plan to address problem: Hemodialysis on a Tuesday, and Tuesday (5) Accelerated hypertension Current Visit: No Status: Acute Plan to address problem: Blood pressure elevated on presentation now improved. Follow blood pressure on current medications (6) Hyperkalemia Current Visit: No Status: Acute Plan to address problem: Resolved with Hemodialysis. Follow-up potassium periodically (7) Type 2 diabetes mellitus with diabetic chronic kidney disease Current Visit: No Status: Chronic Qualifiers: Diabetes mellitus buttermaker insulin use: with care home use Chronic kidney disease stage: on chronic dialysis Qualified Code(s): E11.22 - Type 2 diabetes mellitus with diabetic chronic kidney disease; N18.6 - End stage renal disease; Z79.4 - halfway (current) use of insulin; Z99.2 - Dependence on renal dialysis Plan to address problem: Blood sugar management by primary attending Subjective Date of service: 03/15/21 Principal diagnosis: Change mentation , ESRD,Hx of seizure Interval history: Patient seen lying in bed. She has no complaints today. No chest pain, shortness of breath, nausea or vomiting. Objective - Exam Narrative Exam: Middle-aged Afro-[place] female lying in bed in no acute distress HEENT: Normocephalic atraumatic, pupils equal round reactive to light Normal oropharynx, Neck: Supple, no venous distention, no goiter CVS: S1S2 RRR No murmur, No rub or gallop Lungs: Clear to auscultation, no use of accessory muscles of respiration Abdomen: Full, soft, nontender, no organomegaly no bruit, bowel sounds are present Extremities: No edema, no cyanosis or clubbing Urinary: Deferred Musculo-skeletal: No joint deformities or swelling Neuro: Awake, alert - Vital Signs Vital signs: Vital Signs - 12hr 03/15/21 03/15/21 04:44 14:00 Temperature 98.7 F Respiratory 16 Rate Blood Pressure 172/85 O2 Sat by Pulse 94 Oximetry - Lab 03/11/21 03:25 03/15/21 08:44 Most recent lab results ABG pH 7.431 (7.320-7.450) 03/05/21 16:15 ABG O2 Saturation 94.6 (0-100) 03/05/21 16:15 Calcium 10.3 mg/dL (8.4-10.2) H 03/15/21 08:44 Medications & Allergies - Medications Allergies/Adverse Reactions: Allergies ibuprofen Allergy (Verified 06/24/17 17:09) Rash Home Medications: Home Medications Medication Instructions Recorded Confirmed Last Taken Type Gabapentin 600 mg PO TID 08/27/15 10/31/18 08/09/17 History Ferric Citrate (Nf) [Auryxia] 210 mg PO TID 10/31/18 10/31/18 Unknown History Insulin Aspart (Nf) [NovoLOG 15 - 20 units SUB-Q DAILY@0900 10/31/18 10/31/18 Unknown History Flexpen] Insulin Aspart (Nf) [NovoLOG 15 - 20 units SUB-Q DAILY@1530 10/31/18 10/31/18 Unknown History Flexpen] Insulin Glargine,Hum.rec.anlog 15 - 20 units SUB-Q DAILY@2100 PRN 10/31/18 10/31/18 Unknown History [Lantus Solostar] AtorvaSTATin [Lipitor] 40 mg PO DAILY #30 tablet 11/02/18 Unknown Rx amLODIPine 10 mg PO DAILY #30 tablet 11/02/18 Unknown Rx cloNIDine [Catapres] 0.1 mg PO Q8HR #90 tablet 11/02/18 Unknown Rx levETIRAcetam [Keppra TAB] 750 mg PO BID #60 tablet 11/02/18 Unknown Rx oxyCODONE /ACETAMINOPHEN [Percocet 1 tab PO Q6H PRN #8 tablet 11/02/18 Unknown Rx 5/325 mg] Active Medications: Generic Name Dose Route Start Last Admin Trade Name Freq PRN Reason Stop Dose Admin Acetaminophen 650 mg 03/05/21 06:13 Acetaminophen 650 Mg Rect Supp DC Q6H PRN Pain MILD(1-3)/Fever >100.5/LEE Amlodipine Besylate 10 mg 03/11/21 10:00 03/15/21 10:21 Amlodipine 10 Mg Tab PO 10 mg DAILY LORENE Administration Lipase/Protease/Amylase 1 each 03/09/21 15:54 Lipase 10,500/Protease 25,000/Amylase 43,750 (Units) Dr Gongora FEEDTUBE PRN PRN For Clogged Feeding Tube Atorvastatin Calcium 40 mg 03/10/21 22:00 03/15/21 00:45 Atorvastatin 40 Mg Tab PO 40 mg QHS LORENE Administration Clonidine HCl 0.2 mg 03/09/21 11:00 03/11/21 00:00 Clonidine Tts 0.2 Mg/24 Hr Patch TD 0.2 mg Mo LORENE Administration Clopidogrel Bisulfate 75 mg 03/10/21 14:00 03/15/21 10:21 Clopidogrel 75 Mg Tab PO 75 mg QDAY LORENE Administration Dextrose 0 ml 03/08/21 12:30 Dextrose 50% In Water (25gm) 50 Ml Syringe IV ONCE PRN Hypoglycemia Heparin Sodium (Porcine) 5,000 unit 03/05/21 14:00 03/15/21 13:54 Heparin 5,000 Unit/1 Ml Vial SUB-Q 5,000 unit Q8HR LORENE Administration Hydralazine HCl 10 mg 03/05/21 06:43 03/11/21 00:40 Hydralazine 20 Mg/1 Ml Inj IV 10 mg Q4HR PRN Administration Blood Pressure Sodium Chloride 100 mls @ 999 mls/hr 03/09/21 10:02 Nacl 0.9% IV DESIREE PRN Hypotension Insulin Glargine 20 units 03/14/21 16:36 03/15/21 10:51 Insulin Glargine 100 Units/Ml SUB-Q 20 units BID LORENE Administration Insulin Human Lispro 0 unit 03/14/21 16:30 03/15/21 13:53 Insulin Lispro 100 Unit/Ml SUB-Q 4 unit ACHS LORENE Administration Protocol Insulin Human Regular 5 units 03/14/21 16:37 03/15/21 13:54 Insulin Regular, Human 100 Units/1 Ml SUB-Q 5 units ACHS LORENE Administration Lacosamide 100 mg 03/13/21 22:00 03/15/21 10:22 Lacosamide 100 Mg Tab PO 100 mg Q12HR LORENE Administration Lorazepam 2 mg 03/05/21 07:00 03/10/21 15:27 Lorazepam 2 Mg/Ml Vial IV 2 mg Q4H PRN Administration Seizures Magnesium Hydroxide 30 ml 03/05/21 06:13 Magnesium Hydroxide (Mom) Oral Liqd Udc PO Q4H PRN Constipation Morphine Sulfate 2 mg 03/05/21 06:13 Morphine 2 Mg/1 Ml Inj IV Q4H PRN Pain, Moderate (4-6) Morphine Sulfate 4 mg 03/05/21 06:13 03/11/21 01:06 Morphine 4 Mg/1 Ml Inj IV 4 mg Q4H PRN Administration Pain , Severe (7-10) Phenytoin 100 mg 03/13/21 22:00 03/15/21 10:22 Phenytoin 100 Mg Capsule.Er PO 100 mg Q12HR LORENE Administration Simple Syrup 15 ml 03/10/21 11:44 Simple Syrup 15 Ml FEEDTUBE PRN PRN Hypoglycemia Simple Syrup 30 ml 03/10/21 11:44 Simple Syrup 15 Ml FEEDTUBE PRN PRN Hypoglycemia Sodium Bicarbonate 325 mg 03/10/21 11:44 Sodium Bicarbonate 325 Mg Tab FEEDTUBE PRN PRN For Clogged Feeding Tube Sodium Chloride 10 ml 03/05/21 10:00 03/15/21 10:22 Sodium Chloride 0.9% 10 Ml Flush Syringe IV 10 ml BID LORENE Administration Sodium Chloride 10 ml 03/05/21 06:13 Sodium Chloride 0.9% 10 Ml Flush Syringe IV PRN PRN LINE FLUSH
[2021-03-16] MEDS: HEPARIN 5,000 UNIT/1 ML VIAL SUB-Q SCH ×3 (06:15→21:08)
[2021-03-16] MEDS: INSULIN LISPRO 100 UNIT/ML SUB-Q SCH ×3 (07:30→16:30)
[2021-03-16] MEDS: INSULIN REGULAR, HUMAN 100 UNITS/1 ML SUB-Q SCH ×3 (07:30→16:30)
--- NOTE | 2021-03-16 09:49 | Discharge Summary ---
Providers - Providers Date of Admission: 03/05/21 15:43 Date of discharge: 03/16/21 Attending physician: MIC AVILA MD 03/05/21 06:13 Consult to Dietitian/Nutrition [CONS] Routine Physician Instructions: Reason For Exam: Reason for Consult: Diet education Consult to Dietitian/Nutrition [CONS] Routine Physician Instructions: Reason For Exam: Reason for Consult: Diet education Consult to Physician [CONS] Routine Comment: Consulting Provider: ZACHARY DU Physician Instructions: Reason For Exam: ALTERED MENTAL STATUS, H/O SEIZURES, H/O CVA 03/05/21 09:54 Consult to Physician [CONS] Routine Comment: Consulting Provider: XU SUAREZ Physician Instructions: Reason For Exam: ESRD 03/08/21 10:05 Speech Therapy Evaluation and Treat [CONS] Routine Reason For Exam: failed swallow 03/09/21 09:57 Occupational Therapy Evaluate and Treat [CONS] Routine Comment: Reason For Exam: D/C planning 03/09/21 09:58 Physical Therapy Evaluation and Treat [CONS] Routine Comment: Reason For Exam: D/C planning 03/09/21 15:54 Consult to Dietitian/Nutrition [CONS] Routine Physician Instructions: Assess nutrtn needs, initiate, modify, manage TF Reason For Exam: Reason for Consult: Write/Manage Tube Feeding Reason for Consult: Write/Manage Tube Feeding 03/10/21 07:30 Consult to Dietitian/Nutrition [CONS] Routine Physician Instructions: Assess nutrtn needs, initiate, modify, manage TF Reason For Exam: Reason for Consult: Write/Manage Tube Feeding Reason for Consult: Write/Manage Tube Feeding 03/11/21 11:36 Consult to Case Management [CONS] Routine Services Needed at Discharge: Physical Therapy Notified:: CASE MANAGEMENT Primary care 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 hospitalist course to date: 03/11/2021: mentation is improved. Pulls lines so continues to be in restraints. Awaiting repeat EEG by neurology and interpretation. Swallowing still remains problematic. Will continue to follow with speech recommendations. CM consulted for rehab placement. Does not need ICU level of care, Plan to transfer to medical floor. 03/12/2021: mentation is improved, able to answer yes/no questions. Neuro recs noted, EEG findings noted below. will continue antiepileptics. Patient appears to have pulled NG tube again voicing that she wants to eat. Will follow speech recommendations for dysphagia recovery progress prior to re-attempting NG tube placement.. May need PEG tube. 03/13/2021: Able to tolerate po. Mechanical soft diet and pills with apple sauce ordered. Seizure medication changed to po. unfortunately the patient tested positive for covid; this will make placement a challenge. Will coordinate with cm. Transfer orders placed to 3rd floor. 03/14/2021: Speech cleared for mechanical soft diet. Plan for DC on Tuesday. Awaiting final PT note for placement. Patient will go to [facility]. 03/15/2021: Speech cleared for mechanical soft diet. Plan for DC on Tuesday. Awaiting final PT note for placement. Patient will go to [facility]. 03/16/2021: Medically clear, can be discharged to [facility] Assessment and Plan: #Acute metabolic encephalopathy 2/2 multifactorial siezure and uremia # Hx of CVA with Lt. deficits - 03/05 CT head and MRI w/o contrast showed no acute abnormalities --remote lacunar infarct BG and brain stem. - Cont. dilantin, Keppra 500 mg IV daily, Vimpat per Neuro - PRN ativan for seizure - Seizure precaution - Neuro on consult - EEG is remarkable for recurent triphasic/BIBLED R>L on 03/06 improved on 03/09 EEG to prn triphasic waves and diffuse slowing #End stage renal disease on dialysis- Pt. is anuric #Hyperkalemia-improving #Hyponatremia- resolved - Possible HD today - Continue hemodialysis Per Nephro - Follow up labs in the am #Cardio: elevated Troponin possibly Renal related; H/o HTN - Troponin:0.034, 0.032; 03/05 EKG noted - Hypertensive today, will restart home antihypertensive - Continue clonidine patch and PRN hydralazine for SBP>160 ID: COVID 19 positive - Patient remains afebrile, VSS, positive test found routine covid test for placement. - not hypoxic, no complaints of sob. #Endo: H/o T2DM (type 2 diabetes mellitus) - Cont Humalog sliding scale low-dose. #Advance Care Planning - Discharge planning ongoing - PT/OT eval and treat #DVT prophylaxis: SCDs, Heparin SubQ q8hrs Disposition: 03 HALFWAY FACILITY Final Discharge Diagnosis (Prints w/discharge instructions): Acute metabolic encephalopathy due to uremia and seizures Time spent for discharge: 35 - Discharge Diagnoses (1) Acute encephalopathy Status: Acute (2) Altered mental status, unspecified Status: Acute Qualifiers: Altered mental status type: unspecified Qualified Code(s): R41.82 - Altered mental status, unspecified (3) Anemia Status: Acute Qualifiers: Anemia type: unspecified type Qualified Code(s): D64.9 - Anemia, unspecified (4) Chronic kidney disease, stage IV (severe) Status: Acute (5) Encephalopathy Status: Acute (6) End stage renal disease on dialysis Status: Acute (7) Hyperkalemia Status: Acute (8) Hyponatremia Status: Acute (9) Metabolic acidosis Status: Acute (10) NSTEMI (non-ST elevated myocardial infarction) Status: Acute (11) ESRD (end stage renal disease) on dialysis Status: Chronic (12) T2DM (type 2 diabetes mellitus) Status: Chronic 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 Respiratory: Present: Clear to Ascultation Cardiology: regular, S1S2 Gastrointestinal: normoactive bowel sounds Integumentary: no rash Neurologic: no focal deficit, CN 3-12 intact - Constitutional Vitals: Temp Pulse Resp BP Pulse Ox 97.8 F 115 H 16 168/93 97 03/15/21 21:27 03/15/21 21:27 03/15/21 21:27 03/15/21 21:27 03/16/21 01:11 Plan Follow up with: JUNIOR PIERSON MD [Primary Care Provider] - 3-5 Days
[2021-03-16] MEDS: amLODIPine 10 MG TAB PO SCH (10:12)
[2021-03-16] MEDS: CLOPIDOGREL 75 MG TAB PO SCH (10:12)
[2021-03-16] MEDS: PHENYTOIN 100 MG CAPSULE.ER PO SCH ×2 (10:12→21:08)
[2021-03-16] MEDS: LACOSAMIDE 100 MG TAB PO SCH ×2 (10:13→21:08)
[2021-03-16] MEDS: INSULIN GLARGINE 100 UNITS/ML SUB-Q SCH ×2 (10:15→21:13)
[2021-03-16] MEDS: cloNIDine TTS 0.2 MG/24 HR PATCH TD SCH (10:32)
[2021-03-17 00:35] VITALS: BP 160/80
[2021-03-17] MEDS: INSULIN LISPRO 100 UNIT/ML SUB-Q SCH (01:12)
[2021-03-17] MEDS: INSULIN REGULAR, HUMAN 100 UNITS/1 ML SUB-Q SCH (01:12)
== END 2021-03-17 02:40 | DRG 100 ==
LOC: ED 02:27 → CC1 05:58 → OBSVTOIN 15:43 → 4A 03-11 12:02 → 3A 03-14 01:13
PROVIDERS: ADMIT Internal Medicine Geriatric Medicine; ATTEND Internal Medicine
PROC: 4A033R1 Measurement of Arterial Saturation, Peripheral, Percutaneous Approach (ICD-10-PCS; 2021-03-05)
PROC: 02HV33Z Insertion of Infusion Device into Superior Vena Cava, Percutaneous Approach (ICD-10-PCS; principal; 2021-03-10)
PROC: B548ZZA Ultrasonography of Superior Vena Cava, Guidance (ICD-10-PCS; 2021-03-10)
PROC: 5A1D70Z Performance of Urinary Filtration, Intermittent, Less than 6 Hours Per Day (ICD-10-PCS; 2021-03-10)
PROC: 5A1D70Z Performance of Urinary Filtration, Intermittent, Less than 6 Hours Per Day (ICD-10-PCS; 2021-03-12)
PROC: 5A1D70Z Performance of Urinary Filtration, Intermittent, Less than 6 Hours Per Day (ICD-10-PCS; 2021-03-14)
PROC: 5A1D70Z Performance of Urinary Filtration, Intermittent, Less than 6 Hours Per Day (ICD-10-PCS; 2021-03-15)
DX: G40.909 Epilepsy, unspecified, not intractable, without status epilepticus (principal); N18.6 End stage renal disease; I21.4 Non-ST elevation (NSTEMI) myocardial infarction; U07.1 COVID-19; G93.41 Metabolic encephalopathy; E87.1 Hypo-osmolality and hyponatremia; E87.2 Acidosis; I12.0 Hypertensive chronic kidney disease with stage 5 chronic kidney disease or end stage renal disease; Z99.2 Dependence on renal dialysis; E11.22 Type 2 diabetes mellitus with diabetic chronic kidney disease; D63.1 Anemia in chronic kidney disease; Z88.8 Allergy status to other drugs, medicaments and biological substances; Z79.4 Long term (current) use of insulin; Z86.73 Personal history of transient ischemic attack (TIA), and cerebral infarction without residual deficits; K21.9 Gastro-esophageal reflux disease without esophagitis; R77.8 Other specified abnormalities of plasma proteins; D63.8 Anemia in other chronic diseases classified elsewhere; E87.5 Hyperkalemia
CPT/HCPCS: 36415; 36600; 70450; 70551; 71045; 74018; 80048; 80053; 80061; 80074; 80177; 80185; 80186; 82140; 82607; 82805; 82962; 84443; 84484; 85025; 85027; 85610; 85652; 86140; 93005; 94760; 95819; G0378; C9254; J0330; J0360; J1165; J1644; J1815; J1953; J1956; J2060; J2250; J2270; J2704; J3490; Q2009; U0003